=== PATIENT | female | born 1985 | race Caucasian/White ===

== ENCOUNTER 2022-05-17 08:24 | Outpatient (CLI) | payer OTHER, SELFPAY ==
--- OUTSIDE RECORDS SUMMARY | 2022-05-17 08:27 | XMS_ITS | Continuity of Care Document ---
:1985 Author Organization [facility] Address [address] [facility] [place] [address] Care Team Providers Name Role Phone [facility] Unavailable Unavailable Procedures Procedure Date INTERLAMINAR CRV OR THRC INJ FORAMEN EPIDURAL L/S Advance Directives Directive Yes / No Effective Date File Name No Information Encounters Encounter Practice Location Reason(s) Diagnoses Date Provider Provide rs Description For Visit Copied on Encounter [facility] Information [facility] Provider: Surgery Surgery Surgery [facility]. De La Cruz, [id number] [facility] [place], [place], [place], [place], [id number], [place], [address]. [id number], tel:[phone] tel:[phone] [facility] No [facility] -[facility] Provider: Surgery Surgery Surgery [facility]. De La Cruz, [address] [id number] [facility] Jan [place], [place], [place], [place], [id number], [place], [address]. [place] [id number], tel:[phone] tel:[phone] Family History Family Member Type Diagnosis Age At Onset No Information Payers Payer name Insurance type Covered alliance party ID Authorization(s ) [facility] [id number] Social History Type Description Quantity Date Captured Comments Sex Female Smoking Status No Information Chief Complaint And Reason For Visit No Information Reason For Referral Reason For Referral No Information Plan Of Treatment Date Type Action Status No Information History Of Present Illness Encounter Date Complaint History Of Present I llness No Information Functional Status Date Functional Assessment No Information Instructions Date Instruction Additional Informati on No Information Assessments Type Assessment Date No Information Patient Care Teams Name Effective Dates (start - stop) Status M embers No Information
--- OUTSIDE RECORDS SUMMARY | 2022-05-17 08:27 | XMS_ITS | Clinical Summary ---
:1985 Author Organization [facility] [place] [address] Care Team Providers Name Role Phone None Primary Care Provider Unavailable Allergies No known active allergies Medications Medication Sig Dispensed Refills Start Date End Date Status ORDER - MEDICATION ORDER COMPOSER 0 Active Active Problems Not on file Social History Tobacco Use Types Packs/Day Years Used Date Never Assessed Sex Assigned at Date Recorded Not on file Obstetrics History Last Filed Vital Signs Vital Sign Reading Time Taken Comments Blood Pressure 132/73 11/10/2010 12:00 AM CDT Pulse 96 11/10/2010 12:00 AM CDT Temperature 36.7 ??C (98 ??F) 11/09/2010 7:56 PM CDT Respiratory Rate 16 11/10/2010 12:00 AM CDT Oxygen Saturation 98% 11/10/2010 12:00 AM CDT Inhaled Oxygen Concentration - - Weight 65.8 kg (145 lb) 11/09/2010 7:56 PM CDT Height 157.5 cm (5' 2) 11/09/2010 7:56 PM CDT Body Mass Index 26.52 11/09/2010 7:56 PM CDT Plan of Treatment Health Maintenance Due Date Last Done Comments Tdap 12/25/1998 Depression screening for age 12+ 1999 BMI (ht and wt on same day) for age 0512/25/2005 18+ Hepatitis C screening for age 18-79 12/25/2005 Tetanus booster 2007 Influenza for age 9-49 04/27/2022 Pap test for age 21-65 06/30/2023 06/30/2020, 06/30/2020 COVID-19 vaccine series Completed 07/06/2021, 12/07/2020, 11/09/2020 Results Not on filefrom Last 3 Months Insurance Payer Benefit Plan / Subscriber ID Effective Dates Phone Addre ss Type Group [employer] [id number] 2020-Present [address] [place] [address] 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
--- OUTSIDE RECORDS SUMMARY | 2022-05-17 08:27 | XMS_ITS | Continuity of Care Document ---
:1985 Author Organization [facility] Address [address] [place] [address] Phone Care Team Providers Name Role Phone Will Enrique CHIN Unavailable Unavailable Allergies, Adverse Reactions, Alerts Substance Reaction Status Criticality nickel Active No Information metoprolol Active No Information levothyroxine Active No Information tramadol HivesHivesHives Active No Information oxycodone HivesHivesHives Active No Information hydrocodone Active No Information Medications Medication Instructions Dosage Effective Dates Status Comment s (start - stop) diclofenac sodium 75 take 1 tablet by 75 MG - Active mg tablet,delayed oral route 2 times release every day Cymbalta 60 mg take 1 capsule by 60 MG - Active capsule,delayed oral route every day release atenolol 100 mg take 1 tablet by 100 MG - Active tablet oral route every day colestipol 1 gram take 2 tablet by 2 G - Active tablet oral route every day swallowing whole with any liquid. Do not crush, chew and/or divide. Cosentyx 300 mg/2 inject 2 milliliter 300 MG - Active Syringes (150 mg/mL) by subcutaneous subcutaneous route every 4 weeks in the abdomen, thigh, or outer area of upper arm (rotate sites) Zofran 4 mg tablet take 1 tablet by 4 MG - Active oral route every day as needed Maxalt 10 mg tablet take 1 tablet by 10 MG - Active oral route once, may repeat at 2 hour intervals; do not exceed 30 mg in 24 hours as needed tizanidine 2 mg take 1-2 tablets by - No Longe r tablet oral route every 6 - Active 8 hours as needed not to exceed 3 doses in 24 hours Flector 1.3 % apply 1 patch by 180 MG - No Longer transdermal 12 hour transdermal route 2 Active patch times every day to most painful area Procedures Procedure Date Facet Jt Inj Or MBB Cervical/Thoracic RIGHT Facet Jt Inj Or MBB Cerv/Thor 2nd Level RIGHT 021 Facet Jt Inj Or MBB Cerv/Thor 3rd Level RIGHT 021 OFFICE/OUTPATIENT VISIT, EST INTERLAMINAR CRV OR THRC INJ FORAMEN EPIDURAL L/S BILATERAL INJ TRIGGER POINT, / MUSCL OFFICE/OUTPATIENT VISIT, EST Kenalog Triamcinolone acetonide inj PT-FOCUSED HLTH RISK ASSMT INJECT TRIGGER POINTS, =/> 3 OFFICE/OUTPATIENT VISIT, NEW Advance Directives Directive Yes / No Effective Date File Name No Information Encounters Encounter Practice Location Reason(s) Diagnoses Date Provider Provide rs Description For Visit Copied on Encounter [facility] No Information [facility] Enrique. Pain Isaura 2 [address] [facility] Jackie, Jan, [address] [facility] Yang Montoya is, [place], [place], [id number] [place], , [place]. 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 Provider: Pain Center cervical region 1 [address] [facility], [place] Montoya J, [address] [facility] Min[place] [address] [facility] [address] [facility] Jan isCISCO, Isaura Montoya, [id number] [facility] , [place]. s, [place], [id number] tel: [phone] , [place] [id number] . tel: tel:[phone] OFFICE/OUTPA [facility] Back Pain Strain of fascia of Kush izquierdo Referring TIENT VISIT, [facility] (chief lower back, initial Richard iel. Provider: OZZY [place] complaint) encounterRheumatoid 1 [address] [facility], arthritisOther [facility] [address] Will J, [address] intervertebral disc [address] Jan, degeneration, 100, Jan, [place], thoracic [place], regionChronic pain e, [place], [place], [place] , [id number] syndromeMyalgia, [phone] , [place] other siteOther , [place]. . tel: cervical disc tel: tel: [phone] displacement, high [phone] cervical regionOther intervertebral disc displacement, lumbar regionSpondylosis w/o myelopathy of cervical region [facility] Other cervical disc Oct- De La Cruz Referring [facility] displacement, high Elvi. Provi azar: Pain Center cervical region 1 [address] [facility], Jan, Will J, [address] [place] [address] Jan, is, [place], Jan, [place], [id number] [place], , [place]. s, [place], [id number] tel: [phone] , [place] [id number] . tel: tel: [phone] [facility] Other Oct-0 De La Cruz Referring [facility] intervertebral disc Elvi. Prov ider: Pain Center displacement, 1 [address] [facility], lumbar region Jan, Will J, [address] [place] [address] Jan, is, [place], [place], [id number] [place], , [place]. s, [place], [id number] tel: [phone] , [place] [id number] . tel: tel: [phone] [facility] No Information [facility] Gianni. Pain [place] [address] Clinic, [facility] [address] Jan, 100, [place], [place], e, [place], [id number] , [place] , [place]. tel: tel: [phone] OFFICE/OUTPA [facility] Back Pain Rheumatoid Oct-0 Vyas Re ferring TIENT VISIT, [facility] (chief arthritisOther Gianni. Provider: EST Pain [place] complaint) intervertebral disc 1 [address] [facility], degeneration, [address] Will J, [address] thoracic [address] Jan, regionChronic pain 100, Jan, Isaura, syndromeMyalgia, [place], other siteOther e, [place], [place], [place], [id number] cervical disc [phone] , [place] displacement, high , [place]. . tel: cervical tel: tel: [phone] regionOther [id number] [phone] intervertebral disc displacement, lumbar regionStrain of fascia of lower back, initial encounter OFFICE/OUTPA [facility] Back Pain Other Sep- Vyas Refer ring TIENT VISIT, [facility] (chief intervertebral disc Richard iel. Provider: NEW Pain [place] complaint) degeneration, 1 [address] [facility], Widespread thoracic [address] Will J, [address] pain regionChronic pain 11 [address] Jan, (chief syndromeEncounter 100, Jan, [place], complaint) for screening for [place], other disorderOther e, [place], s, [place], [id number] intervertebral disc [phone] , [place] degeneration, , [place]. . tel: lumbar regionOther tel: t el: [phone] cervical disc [id number] degeneration, unspecified cervical regionMyalgia, other siteRheumatoid arthritis [facility] No Information Sep- Vyas [facility] Gianni. Pain [place] 1 [address] Clinic, [facility] [address] [place] Jan, 100, [place], [place], e, [place], [id number] , [place] , [place]. tel: tel: [phone] Family History Family Member Type Diagnosis Age At Onset No Information Payers Payer name Insurance type Covered democrat ID Authorization(s ) [facility] [id number] Social History Type Description Quantity Date Captured Comments Sex Female Smoking Status No Information Chief Complaint And Reason For Visit No Information Reason For Referral Reason For Referral No Information Plan Of Treatment Date Type Action Status Goal PHQ-9. Due on due Goal Medication Reconciliation. Due o n due Goal Tobacco Use. Due on due Goal Height. Due on due Goal Update Social History. Due on De due Goal Review Allergy List. Due on due Goal Weight. Due on due Goal PHQ-9. Due on due Goal Medication Reconciliation. Due o n due Goal Tobacco Use. Due on due Goal Height. Due on due Goal Update Social History. Due on Oc due Goal Review Allergy List. Due on due Goal Weight. Due on due Goal PHQ-9. Due on due Goal Medication Reconciliation. Due o n due Goal Tobacco Use. Due on due Goal Height. Due on due Goal Update Social History. Due on Oc due Goal Review Allergy List. Due on due Goal Weight. Due on due Goal PHQ-9. Due on due Goal Medication Reconciliation. Due o n due Goal Tobacco Use. Due on due Goal Height. Due on due Goal Update Social History. Due on Se due Goal Review Allergy List. Due on due Goal Weight. Due on due Goal PHQ-9. Due on due Goal Medication Reconciliation. Due o n due Goal Tobacco Use. Due on due Goal Height. Due on due Goal Update Social History. Due on Se due Goal Review Allergy List. Due on due Goal Weight. Due on due History Of Present Illness Encounter Date Complaint History Of Present I llness Back Pain (comments) Liana presents for follow-up. She is followed for chronic pain in her BL hips, low back, mid back ( R>L), upper back, neck (R>L), christine ints and muscles. Most bothersome pain is l ocated in her neck. S/p 06/03/21 LESI and VINICIUS with minimal benefit. Sta franchesca they had a numbing effect for a couple days, but the benefit wore off. Most of to day's visit was spent discussing RFA, andre ent is interested and would like the order placed to her insurance. Patient i s not accompanied and has no other concern s. Back Pain Severity level is 5. Duration: chronic. The problem is fluctuati ng. It occurs persistently. Locati on of pain is upper back, middle back, l ower back, neck and hands.The patient de scribes the pain as an ache and burning. Sy mptoms are aggravated by ascending stairs, bending, descending stairs, lying/rest, sitting, standing, housework and prolon ged positioning.The patient denies relie ving factors. Back Pain (comments) Liana presents for initial follow-up. 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 Most bothersome pain is l ocated in her mid-back. States TPIs performe d at last OV provided about 1 week of reli ef. Requests repeat TPIs today. Since OV, she trialed Lyrica. She states s he felt really shaky and discontinued the medication. Most of today's visit was sp ent discussing updated imaging and availabl e treatment options. Specifically discuss ed cervical and lumbar ESIs. Patient is int erested and requests that the orders be p laced today. Patient is not accompanied and has no other concerns. Back Pain Severity level is 5. Duration: chronic. The problem is stable. I t occurs persistently. Location of pain is upper back, middle back and lower back.The p atient describes the pain as an ache and burning. Symptoms are aggravated by ascend ing stairs, descending stairs, lying/rest, running, standing, twisting, walking, h ousework, movement and prolonged positionin g. Symptoms are relieved by rest. Widespread pain (comments) Liana is a 35 y/o female, here for initial consult, self-referr ed, in the setting of chronic widespread p ain. She details chronic pain in her BL hips, low back, mid back (R>L), upper ba ck, neck (R>L), joints and muscles. She sta franchesca her back pain is of primary concern at t his time. She states she was dx with RA i n . She is currently managed by Dr. Mayela Bateman at [facility], She reports that she had multiple instances of swollen, painful BL knees and managed this with aspirations and cortisone injections. She states she has B L hip pain, also previously managed f or a few years with cortisone injections . She is currently managed on Cosentyx which has helped with knee pain/swelling b ut hip/back/neck pain persists.She states she currently manages her back pain with c hiropractic adjustments, 2x/ekta h for the past 6 years. She reports benefit immediately after, but the relief is short- lived. 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 Triall ed: Cortisone injections without b enefit, Celebrex 200mg 2x/day + Tylenol w/o benefit, PT at [facility]: October-January 2021 w/o benefit, Cy mbalta 60mg, amitriptyline, ibupr ofen, naproxen, prednisone and metho trexate.She is interested in other pain management options at [facility] at this time . No other concerns today. Back Pain Onset: gradual witho ut injury. Severity level is 5. Duration : chronic. The problem is worsening. It occ urs persistently. The patient describes th e pain as an ache and burning. Symptoms ar e aggravated by ascending stairs, be nding, descending stairs, lifting, lyi ng/rest, running, sitting, standing, t wisting, walking and movement.The patient denies relieving factors. Widespread pain Pertinent negatives include diarrhea, fatigue, fever and i ncontinence (urinary). Functional Status Date Functional Assessment No Information Instructions Date Instruction Additional Informati on No Information Assessments Type Assessment Date No Information Patient Care Teams Name Effective Dates (start - stop) Status M embers No Information
--- OUTSIDE RECORDS SUMMARY | 2022-05-17 08:27 | XMS_ITS | Continuity of Care Document ---
:1985 Author Organization [facility] Address [address] [place] [phone] Phone Care Team Providers Name Role Phone [facility] Unavailable Unavailable Procedures Procedure Date Facet Jt Inj Cervical/Thoracic RIGHT Facet Jt Inj Cerv/Thor 2nd Level RIGHT Facet Jt Inj Cerv/Thor 3rd Level RIGHT Advance Directives Directive Yes / No Effective Date File Name No Information Encounters Encounter Practice Location Reason(s) Diagnoses Date Provider Provide rs Description For Visit Copied on Encounter [facility] No [facility] Surgery Surgery Information Surgery Provider: Kelsy, Center [address] [place] [place] [address] 110, 11 [facility] 110, [place], [place] [facility], [place], s, [place], [id number], [id number], [phone] [place]. . tel:[phone] tel:[phone] tel:[phone] Family History Family Member Type Diagnosis Age At Onset No Information Payers Payer name Insurance type Covered constitution party ID Authorization(s ) Count includes the [facility] [id number] Social History Type Description Quantity Date Captured [...]
--- OUTSIDE RECORDS SUMMARY | 2022-05-17 08:28 | XMS_ITS | Encounter Summary ---
:1985 Author Organization [facility] Address [address] [place] [address] Care Team Providers Name Role Phone Manjit Tovar MD Primary Care Provider Reason for Visit Reason Comments Skin Check Encounter Details Date Type Department Care Team Description 09/21/2021 Office Visit Ruth Cheney b enign melanocytic nevi of upper and lower extremities and trunk (Primary Dx); Dermatology MD Trevin Sun-damaged skin; [address] [address] [place] Seborrheic keratosis; [place] [address] [place], [place] Skin exam for malignant neop lasm; [phone] [id number] Personal history of malignant melanoma o f skin; [phone] (Wo rk) History of dysplastic nevus Social History Tobacco Use Types Packs/Day Years Used Date Smoking Tobacco: Former Cigarettes 0.5 4 Quit : 06/27/2013 Smokeless Tobacco: Never Comments: Smoking History Packs/day: Alcohol Use Standard Drinks/Week Comments No 0 (1 standard drink = 0.6 oz pure Alcoho lic Drinks/day: Amount:1-2 alcohol) drinks; Freq:=< Maximino hly; Alcohol Habits Answer Date Recorded How often do you have a drink Not asked containing alcohol? How many drinks containing alcohol Not asked do you have on a typical day when you are drinking? How often do you have six or more Not asked drinks on one occasion? Comment: Alcoholic Drinks/day: Amount:1-2 016 drinks; Freq:=< Monthly; Sex Assigned at Date Recorded Not on file documented as of this encounter Progress Notes Ruth Renee MD - 09/21/2021 10:45 AM CST This office note has been dictated. COUNSELOR Ruth Renee MD - 09/21/2021 12:00 AM CST NAME: MANJIT JUAREZ CSN: [id number] CLINIC NOTE DATE OF SERVICE: 09/21/2021 : 1985 SUBJECTIVE: 35-year-old woman comes in for recheck of her skin. She was last seen in November of 2020. Usually sees Dr[address] Knox, so missed a few appointments because of rescheduling. She has a history of melanoma on the left breast in 2008, 0.39 mm Breslow depth. Another melanoma in 2010, 0.19 mm in depthon the left anterior leg. She has had severely dysplastic nevus left forehead and several on the back in the past as well. Her most recent melanoma was located on her left flank and in situ, excised byDr. Hendrix in February of 2021. Patient has noted no changes in moles. She feels healthy. No lumps or bumps on the skin. She does have some papular growths in the right axilla that were biopsied by Dr. Knox that showed granulomatous changes. These are no longer itchy. She denies really any other concerns. MEDICATIONS: Reviewed in Epic. ALLERGIES: REVIEWED IN EPIC. OBJECTIVE: On exam very pleasant, fair complected woman, skin type 1-2. Evaluation of the skin, fingernails, toenails, external genitalia, gluteal cleft area reveals scar sites are noted including left flank. No evidence of pigment recurrence or nodularity. There are multiple nevi that are lightly colored to medium brown colored, very circular in appearance on the right hip, thigh and buttock area. No concerning features under dermoscopy. Several on the mid-upper back that are very lightly colored. Several angiomas including more dark purple angioma on the right lower leg confirmed with dermoscopy. No cervical, axillary, or inguinal lymphadenopathy is palpable. ASSESSMENT AND PLAN: 1.History of malignant melanoma x3 without evidence of recurrent disease. Most recent was left flank. No evidence of recurrence there. It is well healed. We discussed continued close monitoring and followup in 3-4 months. 2.History of multiple dysplastic nevi. No evidence recurrence of previously excised sites. 3.Multiple benign nevi. Warning changes reviewed. 4.Sun-damaged skin. Sunscreen, sun avoidance, as she has been doing. 5.Papular eruption, right axilla has been relatively asymptomatic recently. Offered no treatment today. Followup here will be 3-4 months. 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
--- OUTSIDE RECORDS SUMMARY | 2022-05-17 08:28 | XMS_ITS | Encounter Summary ---
:1985 Author Organization [employer] Address [address] [place] [address] Care Team Providers Name Role Phone Liana Tovar MD Primary Care Provider Reason for Visit Procedure/Equipment (Routine) - Incomplete Specialty Diagnoses / Procedures Referred By Contact Refer red To Contact Diagnoses Acute pain of right knee Beau Hwang MD Procedures XR Knee Lt 1-2 Views Comparison [address] [facility] [place], [place] [address] Referral ID Status Reason Start Date Expiration Date Visits V isits Requested Authorized [id number] Incomplete 04/14/2021 07/14/2022 1 1 Encounter Details Date Type Department Care Team Description 04/14/2021 [place] [place] Beau Oliveira, Acute candido n of right Procedure [place] [address] knee Radiology [address] [facility] [address] [place], [place] [address] [address] [place], [place] [phone] [address] (Work) [phone] Social History Tobacco Use Types Packs/Day Years [...] on file documented as of this encounter Plan of Treatment Upcoming Encounters Date Type Specialty Care Team Description 05/18/2022 Appointment Rheumatology Erasmo Horn MD [address] [facility] et [facility] [place] N [address] (Wo rk) documented as of this encounter Procedures Procedure Name Priority Date/Time Associated Comments Diagnosis XR KNEE LT 1-2 VIEWS STAT 04/14/2021 1:16 PM Acute pain of right Results for this COMPARISON CDT knee procedure are i n the results section. documented in this encounter Results XR Knee Lt 1-2 Views Comparison (04/14/2021 1:16 PM CDT) Anatomical Region Laterality Modality Lower Extremity, Knee Digital Radiograph y Specimen (Source) Anatomical Collection Method Collection Time Re ceived Time Location / / Volume Laterality 04/14/2021 1:07 PM CDT Impressions 04/14/2021 1:33 PM CDT COMPARISON: ??Left 06/05/2005 FINDINGS: ??Right knee 3 view: Unremarka ble Left knee 2 view: Unremarkable examinati on Procedure Note Balaji Cervantes MD - 04/14/2021For matting of this note might be different from the original. IMPRESSION COMPARISON: Left 06/05/2005 FINDINGS: Right knee 3 view: Unremarkabl e Left knee 2 view: Unremarkable examinati on Beau Hwang MD RAD GD XR Knee Rt 3 Views (04/14/2021 1:15 PM CDT) Anatomical Region Laterality Modality Lower Extremity, Knee Digital Radiograph y Specimen (Source) Anatomical Collection Method Collection Time Re ceived Time Location / / Volume Laterality 04/14/2021 1:07 PM CDT Impressions 04/14/2021 1:33 PM CDT COMPARISON: ??Left 06/05/2005 FINDINGS: ??Right knee 3 view: Unremarka ble Left knee 2 view: Unremarkable examinati on Procedure Note Balaji Cervantes MD - 04/14/2021For matting of this note might be different from the original. IMPRESSION COMPARISON: Left 06/05/2005 FINDINGS: Right knee 3 view: Unremarkabl e Left knee 2 view: Unremarkable examinati on Beau Hwang MD RAD GD documented in this encounter Visit Diagnoses Diagnosis Acute pain of right knee Acute pain of right knee documented in this encounter Care Teams Coordinator Integrated Marketing Relationship Specialty Start Date End Date Liana Tovar MD PCP - General 03/08/[address] [place] [address] documented as of this encounter
--- OUTSIDE RECORDS SUMMARY | 2022-05-17 08:28 | XMS_ITS | Encounter Summary ---
:1985 Author Organization [employer] Address [address] [place] [address] Care Team Providers Name Role Phone Liana Tovar MD Primary Care Provider Reason for Referral Procedure/Equipment (Routine) - Incomplete Specialty Diagnoses / Procedures Referred By Contact Refer red To Contact Diagnoses Pain in both hands Inflammatory spondylopathy, unspecified spinal region (HRC) Erasmo Horn MD Procedures XR Hands 1 View Bilat Arthritis [address] [place], [place] [address] Referral ID Status Reason Start Date Expiration Date Visits V isits Requested Authorized [id number] Incomplete 11/15/2021 02/14/2023 1 1 Reason for Visit Reason Comments Follow-up Right hand pain Encounter Details Date Type Department Care Team Description 11/15/2021 Office Visit [facility] 3800 Erasmo Horn MD Inflammatory spondylopathy, unspecified spinal region (HRC) (Primary Dx); Rheumatology [address] in both hands; [address] Chronic pain syndrome; Blvd. [place], [place] High risk medication use; [place] [address] Lumbar degenerative disc disease [id number] Social History Tobacco Use Types Packs/Day Years [...] on file documented as of this encounter Last Filed Vital Signs Vital Sign Reading Time Taken Comments Blood Pressure 119/83 11/15/2021 8:28 AM CDT Pulse 71 11/15/2021 8:28 AM CDT Temperature - - Respiratory Rate - - Oxygen Saturation - - Inhaled Oxygen Concentration - - Weight 98.3 kg (216 lb 12.8 oz) 11/15/2021 8:28 AM CDT Height - - Body Mass Index 39.65 04/14/2021 1:01 PM CDT documented in this encounter Patient Instructions Patient InstructionsErasmo Horn MD - 11/15/2021 8:30 AM CDT Longstanding history of inflammatory arthritis with a suspicion spondyloarthritis versus seronegative rheumatoid arthritis. Recently Cosentyx dose was increased to 300 mg monthly injection. Patient has since had improvement in her joint pain predominantly in the lower back and knees. Has been complaining of right wrist and right hand pain. No signs of active synovitis on physical exam. Recommend doing an x-ray of both hands. At this time recommend a symptomatic approach with NSAIDs like diclofenac twice daily. Voltaren gel 3-4 times daily for topical use. Warm therapy like paraffin baths for the hands, arthritis gloves. Continue Cosentyx 300 mg subQ monthly injection. Return to clinic in 5-6 months follow-up or sooner if needed. documented in this encounter Progress Notes Erasmo Horn MD - 11/15/2021 8:30 AM CDT Rheumatology Follow up Note Chief Complaint Patient presents with ??? Follow-up Right hand pain HPI: Liana Juarez is a 35 y.o. 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 Previously patient was seen at [facility] by Dr. Miller and later on at [facility] financial services education consultant by Dr. Bateman. Previously she failed Plaquenil and sulfasalazine. Was on methotrexate for couple of years and it was discontinued secondary to a concern for an active melanoma. Was started on Cosentyx 150 mg subQ monthly injection by Dr. Bateman. Patient felt some improvement inher joint symptoms but lasting only for a week or 2 after the injection. Has been complaining of chronic low back pain. Previously seen at pain clinic and had injections in her lower back. Previous imaging studies of the cervical and lumbar spine showed degenerative changes. No signs of inflammatory spondyloarthritis documented. In her 1st encounter with me in June the decision was made to do a trial of increasing Cosentyx to 300 mg subQ monthly injection. Patient is coming today for follow-up. She has seen improvement in her joint symptoms predominantly in the lower back and in her knees. Her main complaint today is painin the right wrist and in the right hand at the level of the 2nd, 3rd and 4th MCP joints predominantly on the 3rd MCP joint. Symptoms are predominantly in the morning and during the day. No significantchange with physical activities. Denies any red hot swollen joints. Denies any skin rash. Currently patient has been using diclofenac 75 mg twice daily. Patient Active Problem List Diagnosis ??? Chronic polyarticular juvenile rheumatoid arthritis (HRC) ??? Obesity due to excess calories (HRC) ??? Elevated blood pressure reading without diagnosis of hypertension ??? Rheumatoid arthritis involving multiple sites with positive rheumatoid factor (HRC) ??? Palpitations ??? Migraine with aura and without status migrainosus, not intractable ??? Inflammatory spondylopathy (HRC) ??? High risk medication use ??? Chronic pain syndrome ??? Lumbar degenerative disc disease (HRC) Past Medical History: Diagnosis Date ??? Abnormal uterine bleeding (AUB) 11/04/2015 ??? Arthritis (HRC) ??? Arthritis Juvenile Rheumatoid Chronic 07/04/2005 LW Onset: ??? Bursitis Trochanteric Right 05/27/2009 ??? Chest discomfort 11/04/2015 ??? Dysplastic Nevus 08/22/2010 LW Modifier: face ??? Elevated blood pressure reading without diagnosis of hypertension 11/04/2015 ??? Fx Bone NOS Closed 05/26/2008 LW Modifier: right wrist LW Onset: 1999 ??? HARRIS (headache) ??? Melanoma (HRC) hx of skin cancer ??? Menorrhagia 05/26/2008 LW Onset: 2006 ??? Obesity (HRC) ??? Obesity due to excess calories (HRC) 11/04/2015 ??? Rheumatoid arthritis(714.0) (HRC) Past Surgical History: Procedure Laterality Date ??? SKIN CANCER EXCISION Outpatient Encounter Medications as of 11/15/2021 Medication Sig Dispense Refill ??? atenolol (TENORMIN) 50 MG tablet Take 50 mg by mouth daily. ??? cholecalciferol (VITAMIND3) 2000 UNITS tablet Take 1 tablet by mouth daily (every 24 hours). 90 3 ??? [DISCONTINUED] clindamycin (CLEOCIN) 2 % vaginal cream Place 1 Applicatorful vaginally nightly. 40 ??? colestipol (COLESTID) 1 g tablet TAKE 2 TABLETS BY MOUTH TWO TIMES A DAY. SWALLOW WHOLE WITH LIQUID. 11 ??? COSENTYX SENSOREADY, 300 MG, 150 MG/ML SOAJ Apply 300 mg to skin every 4 weeks. Indications: Rheumatic Disease causing Vertebrae Inflammation, M45.9 2 Each 11 ??? diclofenac (VOLTAREN) 75 MG enteric coated tablet Take 75 mg by mouth two times daily as needed. ??? DULoxetine (CYMBALTA) 60 MG capsule Take 60 mg by mouth daily. ??? EPINEPHrine (EPIPEN) 0.3 MG/0.3ML injection INJECT ONE PEN INTO MUSCLE ONE TIME NEEDED FOR ALLERGIC REACTION 2 Each 11 ??? ondansetron (ZOFRAN-ODT) 4 MG disintegrating tablet Take 1 tablet by mouth every 8 hours as needed for Nausea or Vomiting. Dissolve tablet on tongue 30 tablet 0 ??? rizatriptan (MAXALT) 10 MG tablet ??? tiZANidine (ZANAFLEX) 2 MG tablet TAKE 1 TO 2 TABLETS BY MOUTH EVERY 6 TO 8 HOURS NEEDED. NOTTO EXCEED 3 DOSES IN 24 HOURS No facility-administered encounter medications on file as of 11/15/2021. Allergies Allergen Reactions ??? Hydrocodone Hives ??? Lac Bovis Hives ??? Nuts Hives almonds ??? Oxycodone Hives ??? Adhesive Rash PN: Paper tape & Tegaderm is okay ??? Bacitracin Rash ??? Metronidazole Other, see comments PN: Headache ??? Other Hives PN: Dairy ??? Wound Dressing Adhesive Rash PN: Paper tape & Tegaderm is okay ??? Grady Oil Hives Social History Substance and Sexual Activity Alcohol Use No Comment: Alcoholic Drinks/day: Amount:1-2 drinks; Freq:=< Monthly; Social History Tobacco Use Smoking Status Former Smoker ??? Packs/day: 0.50 ??? Years: 4.00 ??? Pack years: 2.00 ??? Types: Cigarettes ??? Quit date: 06/27/2013 ??? Years since quittin.3 Smokeless Tobacco Never Used Tobacco Comment Smoking History Packs/day: EXAM General Appearance: Pleasant, alert, appropriate appearance for age. No acute distress HEENT Exam: Normocephalic, atraumatic, clear sclera. Neck Exam: Supple, no masses or nodes. Chest/Respiratory Exam: Normal chest wall and respirations. Clear to auscultation. Cardiovascular Exam: Regular rate and rhythm, no murmur. Musculoskeletal Exam: Normal muscle bulk. Mild tenderness in the 3rd MCP joints bilaterally and dorsum of the right wrist. No signs of active synovitis. No joint effusion. Full range of motion in all 4extremities. Normal muscle strength in all 4 extremities. Skin: no rash Neurologic Exam: Nonfocal, normal gross motor movement, tone, and coordination. No tremor. Lab: Lab Results Component Value Date White Blood Cell Count 6.1 08/29/2016 Red Blood Cell Count 4.56 08/29/2016 Hemoglobin 13.4 08/29/2016 Hematocrit 40.9 08/29/2016 Hematocrit (NPT) 40 06/24/2008 Mean Corpuscular Volume 89.7 08/29/2016 RDW 13.1 08/29/2016 Platelet Count 231 08/29/2016 Lab Results Component Value Date Aspartate Aminotransferase 16 08/29/2016 Lab Results Component Value Date Creatinine Serum 0.70 08/29/2016 Assessment and Plan: Longstanding history of seronegative inflammatory arthritis. A few years ago a diagnosis of juvenilerheumatoid arthritis was given. Later on a suspicion for inflammatory spondyloarthritis was raised with axial and peripheral involvement. Previously failed therapy with Plaquenil, sulfasalazine. At 1 time was on methotrexate but later on was discontinued secondary to concern for active melanoma. Was recently started on Cosentyx 150 mg monthly injection by Dr. Bateman with some relief in her symptoms. Patient felt that the injection was not lasting the full 4 weeks. [place] better in the 1st 1-2 weeks then symptoms were getting worsened in the last 2 weeks. On her last appointment in June the decision was made to increase the Cosentyx to 300 mg subQ monthly injection. Patient has seen some improvement in her joint symptoms predominantly in the lower back and in her knees. Lately has been complaining of right wrist and right hand pain. No signs of active synovitis on physical exam. Recommend doing an x-ray of both hands. At this time recommend a symptomatic approach with NSAIDs like diclofenac 75 mg twice daily. Aspercreme with lidocaine cream or Voltaren gel 3-4 times daily for topical use. Warm therapy like paraffin baths for the hands, arthritis gloves. Continue Cosentyx 300 mg subQ monthly injection. Return to clinic in 5-6 months follow-up or sooner if needed. Erasmo Horn. Rheumatology [address]isa [address] 11/15/2021 This note consists of symbols derived from keyboarding, and voice recognition software. As a result,wrong word or '[id number]' substitutions may have occurred due to the inherent limitations of voice recognition software. There may be errors in the script that have gone undetected. Please consider this when interpreting information found in this chart. documented in this encounter Plan of Treatment Upcoming Encounters Date Type Specialty Care Team Description 05/18/2022 Appointment Rheumatology Erasmo Horn MD [address] [facility] [place] [address] (Wo rk) documented as of this encounter Results XR Hands 1 View Bilat Arthritis (11/15/2021 9:03 AM CDT) Anatomical Region Laterality Modality Upper Extremity, Hand Digital Radiograph y Specimen (Source) Anatomical Collection Method Collection Time Re ceived Time Location / / Volume Laterality 11/15/2021 8:58 AM CDT Impressions 11/15/2021 10:43 AM CDT COMPARISON: ??None. FINDINGS: ??No significant bone or joint abnormality is noted. Procedure Note Amos Nuno MD - 11/15/2021Formatti ng of this note might be different from the original. IMPRESSION COMPARISON: None. FINDINGS: No significant bone or joint a bnormality is noted. Erasmo Horn MD RAD GD documented in this encounter Visit Diagnoses Diagnosis Inflammatory spondylopathy, unspecified spinal region (HRC) - Primary Pain in both hands Chronic pain syndrome High risk medication use Encounter for long-term (current) use of other medications Lumbar degenerative disc disease (HRC) Degeneration of lumbar or lumbosacral in tervertebral disc Pain in both hands Inflammatory spondylopathy, unspecified spinal region (HRC) documented in this encounter Care Teams Inspector Aide Relationship Specialty Start Date End Date Liana Tovar MD PCP - General 03/08/[address] [place] [address] documented as of this encounter
--- OUTSIDE RECORDS SUMMARY | 2022-05-17 08:28 | XMS_ITS | Encounter Summary ---
:1985 Author Organization [employer] Address [address] [place] [address] Care Team Providers Name Role Phone Liana Tovar MD Primary Care Provider Reason for Referral Therapies (Routine) - New Request Specialty Diagnoses / Procedures Referred By Contact Refer red To Contact Diagnoses Chronic pain syndrome Erasmo Horn MD [address] [place], [place] [address] Referral ID Status Reason Start Date Expiration Date Visits V isits Requested Authorized [id number] New Request 07/20/2021 07/20/2022 1 1 Scheduling Instructions This order is your clinician's recommend ation for a service and is not an insurance referral which authorizes payment. The r ecommended service and/or location may not be covered by your insurance plan. Please c all the number on your insurance card to find out your specific benefits and coverage for the recommended services and/or location. If you need help scheduling the recommen ded services, please ask your clinician's staff to assist you. ER SINGLE Encounter Details Date Type Department Care Team Description 07/20/2021 Notes/Orders [facility] [address]Erasmo Foley MD Chronic pain syndrome Rheumatology [address] (Primary Dx) [address] [place] [address] [phone] Social History Tobacco Use Types Packs/Day Years [...] Description 05/18/2022 Appointment Rheumatology [facility]asmo Horn MD [address] [facility] [place] [id number] (Wo rk) Scheduled Referrals Name Type Priority Associated Diagnoses Order S chedule Physical Therapy Referral Routine Chronic pain syndrome Or dered: 07/20/2021 documented as of this encounter Visit Diagnoses Diagnosis Chronic pain syndrome - Primary documented in this encounter Care Teams Shoe Laster Relationship Specialty Start Date End Date Liana Tovar MD PCP - General 03/08/15 [address] [address] documented as of this encounter
--- OUTSIDE RECORDS SUMMARY | 2022-05-17 08:28 | XMS_ITS | Encounter Summary ---
:1985 Author Organization [email or web address] Address [address] [place] [address] Care Team Providers Name Role Phone Liana Tovar MD Primary Care Provider Reason for Visit Reason Comments Surgery Consult/Transfer Care (Routine) - New Request Specialty Diagnoses / Procedures Referred By Contact Refer red To Contact Diagnoses Melanoma in situ, unspecified site (HRC) [place] [address] [place] [address] Referral ID Status Reason Start Date Expiration Date Visits V isits Requested Authorized [id number] New Request 02/21/2021 05/23/2022 1 1 Encounter Details Date Type Department Care Team Description 03/02/2021 Procedure Visit [facility] 3800 Mary Hendrix MD Surgery Dermatology [address] [address] [phone] (Wo rk) Social History Tobacco Use Types Packs/Day Years [...] documented as of this encounter Progress Notes Mary Hendrix MD - 03/02/2021 1:00 PM CDT PROCEDURE NOTE Surgeon: Mary Hendrix MD Director On Air: Kami Paz RN Anesthesia: Lidocaine with 1% epinephrine Clinical diagnosis: Melanoma in situ Anatomic site: Left Flank Preoperative lesion size: linear 1 cm scar Operation: Excision Surgical Defect: 2 cm (5 mm margins) Final closure length: 4 cm Preparation: Chlorhexadine Preoperative medications: None INDICATIONS: Liana Juarez is a 35 y.o. female who presents for excision. The patient understands all risks, benefits, indications, potential complications, and alternatives, and freely consents for the procedure. The patient also understands the option of performing no surgery, the risk for scarring, and the technique of the procedure. TECHNIQUE: After informed consent was obtained, and after the skin was prepped sterilely and draped,1% lidocaine with epinephrine for anesthetic was injected around and underneath the site. ellipticalexcision in total was performed. The excision was carried into the fascia. Wound edges were then undermined approximately 0.5 cm in all directions. Hemostasis achieved with bipolar electrocoagulation. Subcutaneous tissues were then brought together with 6 vicryl sutures. Epidermal edges were approximated with 7 4.0 monocryl sutures. The surgical site was lightly scrubbed with hydrogen peroxide. A dressing was applied and wound care instructions were provided. Liana tolerated the procedure well and without complications. The patient will be alert for any signs of cutaneous infection and will follow up as instructed. The patient was discharged from Dermatology clinic in good condition. Mary Hendrix MD - 03/02/2021 1:00 PM CDT Melanoma is out, please call documented in this encounter Plan of Treatment Upcoming Encounters Date Type Specialty Care Team Description 05/18/2022 Appointment Rheumatology Erasmo Horn MD [address] [facility] et [facility] [place] [address] (Wo rk) documented as of this encounter Procedures Procedure Name Priority Date/Time Associated Comments Diagnosis SURGICAL PATHOLOGY, Routine 03/02/2021 1:04 PM Neoplasm of ski n Results for this DERMATOLOGY CDT procedure are i n the results section. documented in this encounter Results Surgical Path, Dermatology (03/02/2021 1:04 PM CDT) Component Value Ref Test Analysis Performed At [facility] gist Range Method Time Signature Case Report Surgical Pathology Report ? Case: [id number] ? 03/07/2021 [facility] 3800 Authorizing Provider: ??Mary Vasquez MD ? Collected: ? 03/02/2021 1304 ? 3:31 PM DERM ATOLOGY Ordering Location: ? [facility] ? Received: ?03/03/2021 0934 ? CDT ? Dermatology ? Pathologist: ? Nash Omalley MD ? Specimen: ?Skin, Left Fl ank ? FINAL A. Skin and subcutaneous tissue, Left Flank, excision: 03/07/2021 [facility] 3800 Electronically DIAGNOSIS - Organizing biopsy site with no residual melanoma in situ . 3:31 PM DERMATOLOGY signed by CDT Sherine Omalley COMMENT: I also reviewed the previous biopsy ([id number]). Taken together, the two specimens appear to represent adequate surgical therapy of this melanoma in situ, assuming clinical margins commensurate with accepted melanoma care guidelines. MD Vikram on 03/07/2021 at 3:31 PM Clinical Differential 03/07/2021 [facility]00 Information Diagnosis: MIS; 3:31 PM DERMATOLOGY [id number]; exc CDT Microscopic Microscopic 03/07/2021 [facility] 3800 Description examination is 3:31 PM DERMATOLOGY performed. CDT Gross A: 03/07/2021 [facility] 3800 Description Received in formalin, labele d with the patient's name and Skin, Left Flank is a 27 x 15 x 10 mm elliptical excision of skin and subcutis. The resection margin is entirely marked with black ink. The sp 3:31 PM DERMATOLOGY ecimen is serially sectioned into 8 pieces and submitted entirely in 6 cassettes, with tips submitted in cassette 1. CC CDT Embedded 03/07/2021 [facility] 3800 Images 3:31 PM DERMATOLOGY CDT Specimen Anatomical Collection Method Collection Time Receive d Time (Source) Location / / Volume Laterality Skin (Skin) 03/02/2021 1:04 PM 9:34 CDT AM CDT Comment: Differential Diagnosis: MIS; [id number]; exc Check Margins: No Mary Hendrix MD LAB PATHOLOGY Performing Organization Address City/State/ZIP Code Phon e Number DIRECTOR ASSET 3800 DERMATOLOGY [address] [place], [place] [address] documented in this encounter Visit Diagnoses Diagnosis Melanoma in situ of back (HRC) - Primary Malignant melanoma of skin of trunk, exc ept scrotum Neoplasm of skin (HRC) Neoplasm of unspecified nature of bone, soft tissue, and skin documented in this encounter Care Teams Practice Architect Relationship Specialty Start Date End Date Liana Tovar MD PCP - General 03/08/[address] [place] [address] documented as of this encounter
--- OUTSIDE RECORDS SUMMARY | 2022-05-17 08:28 | XMS_ITS | Encounter Summary ---
:1985 Author Organization [employer] Address [address] [place] [address] Care Team Providers Name Role Phone Liana Tovar MD Primary Care Provider Reason for Visit Procedure/Equipment (Routine) - Incomplete Specialty Diagnoses / Procedures Referred By Contact Refer red To Contact Diagnoses Acute pain of right knee Beau Hwang MD Procedures MR Knee Rt WO IV Cont [address] [place], [place] [address] Referral ID Status Reason Start Date Expiration Date Visits V isits Requested Authorized [id number] Incomplete 04/14/2021 07/14/2022 1 1 Encounter Details Date Type Department Care Team Description 04/14/2021 Ancillary [place] Beau Hwang, Acute pain of right Procedure [place] [address] [place] [address] [facility] [place] [address] [phone] Social History Tobacco Use Types Packs/Day Years [...] Description 05/18/2022 Appointment Rheumatology Erasmo Horn MD [address] [place] [facility] [facility] [address] [place] N [id number] (Wo rk) documented as of this encounter Procedures Procedure Name Priority Date/Time Associated Diagnosis Comme nts MR KNEE RT WO IV STAT 04/14/2021 6:28 PM Acute pain of righ t Results for this CONT CDT knee procedure are i n the results section. documented in this encounter Results MR Knee Rt WO IV Cont (04/14/2021 6:28 PM CDT) Anatomical Region Laterality Modality Lower Extremity, Knee, Skeletal, Thigh, Leg Right Magnetic Resonance Specimen (Source) Anatomical Collection Method Collection Time Re ceived Time Location / / Volume Laterality 04/14/2021 5:56 PM CDT Impressions 04/14/2021 6:42 PM CDT TECHNIQUE: ??Routine MRI of the right knee was performed without contrast. COMPARISON: ??04/14/2021 radiograph FINDINGS: MEDIAL COMPARTMENT: ??There are no focal cartilage defects. The medial meniscus is normal without evidence of tear. LATERAL COMPARTMENT: ??There are no foca l cartilage defects. The lateral meniscus is normal without evidence of tear. PATELLOFEMORAL JOINT: ??Mild chondral th inning of the lateral patellar facet. Cartilage of the medial patellar facet and femoral trochlea are intact. No full- thickness chondral defect. There is no signi ficant joint effusion or popliteal cyst. No osteocartilaginous bodies are identified. LIGAMENTS AND TENDONS: ??The anterior an d posterior cruciate ligaments, medial collateral ligament, iliotibial band, fibular collateral ligament and biceps femoris tendons are intact. The popliteus musc le and tendon are normal. There is no ev idence of injury to the posterolateral corner supporting structures. EXTENSOR MECHANISM: The quadriceps and p atellar tendons are normal. The medial retinaculum, medial patellofemoral ligament, and lateral retinaculum are normal. MARROW AND SOFT TISSUES: ??There is no a bnormal marrow signal or evidence of soft tissue mass. IMPRESSION: ?? 1. No MR evidence for acute meniscal or ligament tear. 2. No MR findings to suggest sequela of transient lateral patellar dislocation. 3. Mild chondromalacia patella. Procedure Note Amos Nuno MD - 04/14/2021Formatti ng of this note might be different from the original. IMPRESSION TECHNIQUE: Routine MRI of the right knee was performed without contrast. COMPARISON: 04/14/2021 radiograph FINDINGS: MEDIAL COMPARTMENT: There are no focal c artilage defects. The medial meniscus is normal without evidence of tear. LATERAL COMPARTMENT: There are no focal cartilage defects. The lateral meniscus is normal without evidence of tear. PATELLOFEMORAL JOINT: Mild chondral thin johnna of the lateral patellar facet. Cartilage of the medial patellar facet and femoral trochlea are intact. No full- thickness chondral defect. There is no significant joint effusion or popliteal cyst. No osteocart ilaginous bodies are identified. LIGAMENTS AND TENDONS: The anterior and posterior cruciate ligaments, medial collateral ligament, iliotibial band, fibular collateral ligament and biceps femoris tendons are intact. The popliteus muscle and tendon are normal. There is no evidence of injury t o the posterolateral corner supporting structures. EXTENSOR MECHANISM: The quadriceps and p atellar tendons are normal. The medial retinaculum, medial patellofemoral ligament, and lateral retinaculum are normal. MARROW AND SOFT TISSUES: There is no abn ormal marrow signal or evidence of soft tissue mass. IMPRESSION: 1. No MR evidence for acute meniscal or ligament tear. 2. No MR findings to suggest sequela of transient lateral patellar dislocation. 3. Mild chondromalacia patella. Beau Hwang MD RAD MRI documented in this encounter Visit Diagnoses Diagnosis Acute pain of right knee documented in this encounter Care Teams Automotive Engineer Relationship Specialty Start Date End Date Liana Tovar MD PCP - General 03/08/[address] [place] [address] documented as of this encounter
--- OUTSIDE RECORDS SUMMARY | 2022-05-17 08:28 | XMS_ITS | Encounter Summary ---
:1985 Author Organization [employer] Address [address] [place] [address] Care Team Providers Name Role Phone Liana Tovar MD Primary Care Provider Reason for Visit Procedure/Equipment (Routine) - Incomplete Specialty Diagnoses / Procedures Referred By Contact Refer red To Contact Diagnoses Pain in both hands Inflammatory spondylopathy, unspecified spinal region (HRC) Erasmo Horn MD Procedures XR Hands 1 View Bilat Arthritis [address] [place], [place] [address] Referral ID Status Reason Start Date Expiration Date Visits V isits Requested Authorized [id number] Incomplete 11/15/2021 02/14/2023 1 1 Encounter Details Date Type Department Care Team Description 11/15/2021 Ancillary [facility] [address] Erasmo Horn MD Pain in both hands; Procedure Radiology [address] [place] Inflammatory spondylopathy, unspecified spinal region (HRC) [address] [facility]. [facility], [address] [place] [address] [phone] Social History Tobacco Use Types Packs/Day Years [...] documented as of this encounter Progress Notes Erasmo Horn MD - 11/15/2021 9:00 AM CDT X-ray of the hands is unremarkable. No signs of joint erosions. documented in this encounter Plan of Treatment Upcoming Encounters Date Type Specialty Care Team Description 05/18/2022 Appointment Rheumatology Erasmo Horn MD [address] [facility] N [address] (Wo rk) documented as of this encounter Procedures Procedure Name Priority Date/Time Associated Diagnosis Comme nts XR HANDS 1 VIEW Routine 11/15/2021 9:03 AM Pain in both hands Results for this BILAT ARTHRITIS CDT Inflammatory procedure ar e in spondylopathy, the results unspecified spinal section. region (HRC) documented in this encounter Results XR Hands 1 View [...] documented in this encounter Visit Diagnoses Diagnosis Pain in both hands Inflammatory spondylopathy, unspecified spinal region (HRC) documented in this encounter Care Teams Welding Robot Operator Relationship Specialty Start Date End Date Liana Tovar MD PCP - General 03/08/[address] [place] [address] documented as of this encounter
--- OUTSIDE RECORDS SUMMARY | 2022-05-17 08:28 | XMS_ITS | Encounter Summary ---
:1985 Author Organization [employer] Address [address] [place] [address] Care Team Providers Name Role Phone Liana Tovar MD Primary Care Provider Reason for Visit Reason Comments QUESTIONS, GENERAL Encounter Details Date Type Department Care Team Description 03/08/[address] [facility] [address] Johnson QU ESTIONS, GENERAL Dermatology [address] [place] [address] [place] [id number] [phone] Social History Tobacco Use Types Packs/Day Years [...] on file documented as of this encounter Nursing Kerry Lopez - 03/08/2021 10:59 AM CDT Liana called because she had a medical laser treatment on 02/14/21 and said that she will need another one. She is under the impression that Dr. Johnson wants her to wait 3 weeks from the first appointment. Please let me know when to put her on the schedule. Thank you. documented in this encounter Plan of Treatment Upcoming Encounters Date Type Specialty Care Team Description 05/18/2022 Appointment Rheumatology Erasmo Horn MD [address] [facility] [address] [id number] (Wo rk) documented as of this encounter Visit Diagnoses Not on filedocumented in this encounter Care Teams Still Photographer Relationship Specialty Start Date End Date Liana Tovar MD PCP - General 03/08/15 [address] [place] [address] documented as of this encounter
--- OUTSIDE RECORDS SUMMARY | 2022-05-17 08:28 | XMS_ITS | Encounter Summary ---
:1985 Author Organization [employer] Address [address] [place] [address] Care Team Providers Name Role Phone Liana Tovar MD Primary Care Provider Reason for Referral Therapies (Routine) - New Request Specialty Diagnoses / Procedures Referred By Contact Refer red To Contact Diagnoses Chronic pain syndrome Erasmo Horn MD [address] [place], [place] [address] Referral ID Status Reason Start Date Expiration Date Visits V isits Requested Authorized [id number] New Request 07/11/2021 07/11/2022 1 1 Scheduling Instructions Your provider has recommended an appoint ment with [facility]. You may call [phone] to schedule yo ur appointment. We suggest you call your health insurance company about your cove rage and benefits for this appointment. NICS ELECTRICAL ENGINEER Reason for Visit Reason Comments CONSULT Encounter Details Date Type Department Care Team Description 07/11/2021 Office Visit Erasmo Calhoun MD Inflammatory spondylopathy, unspecified spinal region (HRC) (Primary Dx); Rheumatology [address] High risk medication use; [address] [facility] Chronic pain syndrome; [place] [address] [place], [place] Lumbar degenerative disc dis ease (HRC) [phone] [id number] Social History Tobacco Use Types Packs/Day Years [...] on file documented as of this encounter Patient Instructions Patient InstructionsErasmo Horn MD - 07/11/2021 2:30 PM CST 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 Previously failed therapy with methotrexate recently with sulfasalazine. On Cosentyx 150 mg injections every 4 weeks with some improvement in her knee pain and swelling but continues to the pain 3 to 4 weeks after the injection. Her main complaint today is increased back pain which is persistent during the day. Recent MRI of the cervical and lumbar spine showed mild degenerative disc disease. No signs of inflammatory spondyloarthropathy was documented on MRI reports. Clinically there is a component of chronic pain syndrome with myofascial pain overwhelming the symptoms. Chronic pain syndrome Fibromyalgia is common in patients with high levels of stress, depression, anxiety and PTSD. The treatment is challenging and multimodality approach is recommended including physical therapy, pain management, relaxation techniques, water therapy, yoga, delores chi, acupuncture, mental health practitioner. Recommend continue follow-up appointment with the Pain Clinic. In the meantime recommend a trial of increasing Cosentyx to 300 mg monthly injection and see there is any benefit in regards to her joint pain predominantly in the knees and maybe the back. Recommend a follow-up appointment 3-4 months. NICS ELECTRICAL ENGINEER documented in this encounter Progress Notes Erasmo Horn MD - 07/11/2021 2:30 PM CST Rheumatology New Patient/Consult Note Referral: PATIENT SELF REFERRAL, [place] [address] Chief Complaint Patient presents with ??? CONSULT HPI: Liana Juarez is a 35 y.o. female with medical history as stated below presents today with a chief complaint of increased arthralgia and myalgia. 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 Patient has had symptoms since she was 19 years old. At that time she is to have pain in her lower back and hips. In the past she tried methotrexate but then it was discontinued secondary to a concern for an activemelanoma. Reviewing the rheumatology note from the last clip bolter [facility] had intermittent arthrocentesis and intra- articular steroid injection in her right knee. The previous synovial fluid analysis document the low-grade inflammatory process. She took sulfasalazine then was recently started on Cosentyx 150 mg monthly injections. Patient feels that the Cosentyx has helped with the knee pain and swelling up to certain degree. Shefeels that 2-3 weeks after the injection her joint pain is going up. Has been complaining of upper and lower back pain. When she wakes up in the morning she has mid backpain in the midthoracic area then during the day the pain spreads in the whole back. Previously patient tried Celebrex with no significant benefit. Was recently seen by [facility]. Recently was given diclofenac twice daily with no significant benefit. Recently patient had steroid injection along the paraspinal muscles of the back with significant improvement lasting only for 2 weeks. Had recently MRI of the cervical and lumbar spine at [facility]. I was able to view the MRI report through patient's portal. The MRI document mild degenerative disc disease in the cervical and lumbar spine. No signs of inflammatory spondyloarthropathy was documented. No signs of spinal stenosis. Currently on Cymbalta 60 mg daily. Previously could not tolerate Lyrica secondary to feeling shaky. Recently has been of sulfasalazine with no significant change on her symptoms. Patient does not sleep well, wakes up often during the night, feels tired in the morning, fogginess in her thinking. Patient accepts that there is a component of active anxiety. Denies any current red hot swollen joints. Intermittently she can skin rashes in the elbows lasting for couple of days. Status post total hysterectomy with salpingectomy. No known family history of autoimmune disease. ROS: Comprehensive review of systems form filled out by the patient for today's visit was reviewed, sent to SDOC, and is as noted above and/or notable for: Headaches, anxiety, joint and muscle stiffness, upper and lower back pain, right knee pain. Patient Active Problem List Diagnosis ??? 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 Bursitis Trochanteric Right 05/27/2009 ??? Chest [...] CANCER EXCISION Outpatient Encounter Medications as of 07/11/2021 Medication Sig Dispense Refill ??? atenolol (TENORMIN) [...] 300 mg to skin every 4 weeks. 2 Each 11 ??? diclofenac (VOLTAREN) 75 [...] ??? rizatriptan (MAXALT) 10 MG tablet ??? [DISCONTINUED] ascorbic acid (VITAMINC) 500 MG tablet Take 1,000 mg by mouth daily (every 24 hours). ??? [DISCONTINUED] buPROPion (WELLBUTRIN XL) 150 MG 24 hour release tablet Take 150 mg by mouth daily. ??? [DISCONTINUED] Calcium Carbonate (CALCIUM 600 OR) Take by mouth. pt unsure of dose ??? [DISCONTINUED] celecoxib (CELEBREX) 200 MG capsule Take 200 mg by mouth daily. ??? [DISCONTINUED] clindamycin (CLEOCIN T) 1 % lotion Apply to left armpits once a day for 2 weeks 60 mL 0 ??? [DISCONTINUED] clindamycin (CLEOCIN T) 1 % lotion Use on face once to twice a day 60 mL 11 ??? [DISCONTINUED] COSENTYX SENSOREADY, 300 MG, 150 MG/ML SOAJ ??? [DISCONTINUED] fluocinonide (LIDEX) 0.05 % cream Apply topically to bumps on legs once and coverwith a bandage. 60 g 1 ??? [DISCONTINUED] FLUoxetine (PROZAC) 20 MG capsule ??? [DISCONTINUED] SYNTHROID 50 MCG tablet Take 50 mcg by mouth daily. ??? [DISCONTINUED] triamcinolone acetonide (KENALOG) 0.1 % cream Apply to armpit and arm rash daily for 2 weeks. 60 g 0 No facility-administered encounter medications on file as of 07/11/2021. Allergies Allergen Reactions ??? Hydrocodone Hives ??? Lac Bovis Hives ??? Oxycodone Hives ??? Adhesive Rash PN: Paper tape & Tegaderm is okay ??? Bacitracin Rash ??? Metronidazole Other, see comments PN: Headache ??? Other Hives PN: Dairy ??? Wound Dressing Adhesive Rash PN: Paper tape & Tegaderm is okay ??? Cicero Oil Hives Social History Substance and Sexual Activity Alcohol Use No Comment: Alcoholic Drinks/day: Amount:1-2 drinks; Freq:=< Monthly; Social History Tobacco Use Smoking Status Former Smoker ??? Packs/day: 0.50 ??? Years: 4.00 ??? Pack years: 2.00 ??? Types: Cigarettes ??? Quit date: 06/27/2013 ??? Years since quittin.0 Smokeless Tobacco Never Used Tobacco Comment Smoking History Packs/day: EXAM There were no vitals taken for this visit. General Appearance: Pleasant, alert, appropriate appearance for age. No acute distress HEENT Exam: Normocephalic, atraumatic, clear sclera. Neck Exam: Supple, no masses or nodes. Chest/Respiratory Exam: Normal chest wall and respirations. Clear to auscultation. Cardiovascular Exam: Regular rate and rhythm, no murmur. Musculoskeletal Exam: Normal muscle bulk. Presence of diffuse point tenderness in her paraspinal muscles of the upper and lower back. Tenderness in her upper and lower extremities with palpation. No signs of active synovitis. No joint effusion. Full range of motion in all 4 extremities. Normal muscle strength in all 4 extremities. [...] Creatinine Serum 0.70 08/29/2016 Assessment and Plan: Her previous rheumatologic workup at [facility] showed a negative LISA, negative RF and CCP, positive thyroid peroxidase antibodies, negative TTG IgA antibodies. Reviewing records from the previous clip bolter and wrapper it was documented negative HLA B27. Negative screen for TB and hepatitis B and C. A synovial fluid analysis in June 2018 done at [facility] showed 8117 nucleated cells. Recent MRI of the cervical spine and lumbar spine done at [facility] showed mild degenerative disc disease.No signs of inflammatory spondyloarthropathy was documented. 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 Previously failed therapy with methotrexate and recently sulfasalazine. On Cosentyx 150 mg injections every 4 weeks with some improvement in her knee pain and swelling but continues to have joint pain 3 to 4 weeks after the injection. Patient does not feel it is lasting the full 4 weeks. Lately also patient has been complaining of increased back pain which is persistent during the day. Recent MRI of the cervical and lumbar spine showed mild degenerative disc disease. No signs of inflammatory spondyloarthropathy was documented on MRI reports. Clinically there is a component of chronic pain syndrome with myofascial pain overwhelming the symptoms. Patient satisfies 2010 ACR criteria for fibromyalgia with a widespread pain index of 7 and symptom severity score of 8. Chronic pain syndrome Fibromyalgia is common in patients with high levels of stress, depression, anxiety and PTSD. The treatment is challenging and multimodality approach is recommended including physical therapy, pain management, relaxation techniques, water therapy, yoga, delores chi, acupuncture, mental health practitioner. Recommend continue follow-up appointment with the Pain Clinic. Recommend lifestyle renewal program here at [facility]. In the meantime recommend a trial of increasing Cosentyx to 300 mg monthly injection and see if there is any benefit in regards to her joint pain predominantly in the knees and maybe the back. Recommend a follow-up appointment 3-4 months. Thank you for letting me participate in the care of this patient. Please don't hesitate to contact me if you have any questions. Total of 70 minutes was spent reviewing previous medical records, consulting patient and charting. Erasmo Horn. Rheumatology [facility] 07/11/2021 This note consists of symbols derived from keyboarding, and voice recognition software. As a result,wrong word or '[id number]' substitutions may have occurred due to the inherent limitations of voice recognition software. There may be errors in the script that have gone undetected. Please consider this when interpreting information found in this chart. NICS ELECTRICAL ENGINEER documented in this encounter Plan of Treatment Upcoming Encounters Date Type Specialty Care Team Description 05/18/2022 Appointment Rheumatology Erasmo Horn MD [address] [facility] N [id number] (Wo rk) Scheduled Referrals Name Type Priority Associated Diagnoses Order S chedule Occupational Therapy Referral Routine Chronic pain syndrom e Ordered: 07/11/2021 documented as of this encounter Visit Diagnoses Diagnosis Inflammatory spondylopathy, unspecified spinal region (HRC) - Primary High risk medication use Encounter for long-term (current) use of other medications Chronic pain syndrome Lumbar degenerative disc disease (HRC) Degeneration of lumbar or lumbosacral in tervertebral disc documented in this encounter Care Teams Wire Bound Box Machine Helper Relationship Specialty Start Date End Date Liana Tovar MD PCP - General 03/08/15 [address] [place] [address] documented as of this encounter
--- OUTSIDE RECORDS SUMMARY | 2022-05-17 08:28 | XMS_ITS | Encounter Summary ---
:1985 Author Organization [employer] Address [address] [place] [address] Care Team Providers Name Role Phone Liana Tovar MD Primary Care Provider Encounter Details Date Type Department Care Team Description 08/18/2021 Orders Only HIM DEPARTMENT Provider, Constance ragsdale [place] [address] Social History Tobacco Use Types Packs/Day Years [...] Description 05/18/2022 Appointment Rheumatology Erasmo Horn MD [address] [id number] (Wo rk) documented as of this encounter Procedures Procedure Name Priority Date/Time Associated Diagnosis Comme nts MRI-SCAN 08/18/2021 Results for thi s procedure are in the resu lts section. documented in this encounter Results MRI-SCAN (08/18/2021) Anatomical Region Laterality Modality Other Narrative This result has an attachment that is no t available. Interface Provider DUMMY/OTHER/AR documented in this encounter Visit Diagnoses Not on filedocumented in this encounter Care Teams Cash Management Coordinator Relationship Specialty Start Date End Date Liana Tovar MD PCP - General 03/08/15 [address] [address] documented as of this encounter
--- OUTSIDE RECORDS SUMMARY | 2022-05-17 08:28 | XMS_ITS | Encounter Summary ---
:1985 Author Organization [facility] Address [address] [place] [address] Care Team Providers Name Role Phone Liana Tovar MD Primary Care Provider Reason for Visit Reason Comments CHRONIC PAIN Therapies (Routine) - New Request Specialty Diagnoses / Procedures Referred By Contact Refer red To Contact Diagnoses Chronic pain syndrome Erasmo Horn MD [address] [place], [place] [address] Referral ID Status Reason Start Date Expiration Date Visits V isits Requested Authorized [id number] New Request 07/11/2021 07/11/2022 1 1 Encounter Details Date Type Department Care Team Description 08/04/2021 Office Visit [facility] Yulisa Dykes, Chronic pain syndrome Center - Lifestyle OTR/L (Primary Dx) Renewal [address] [address] [place] [address] [place], [place] [phone] (Wo rk) Social History Tobacco Use Types [...] documented as of this encounter Progress Notes Yulisa Dykes, OTR/L - 08/04/2021 2:00 PM CST [address] [facility] Occupational Therapy - Lifestyle Renewal Evaluation/Plan of Care Initial Certification Period: 08/04/2021 to 11/06/21 Referring Provider: Erasmo Horn Visit Diagnosis: 1. Chronic pain syndrome Precautions: Chronic polyarticular juvenile rheumatoid arthritis, migraines, Lumbar degenerative disc disease (HRC), Rheumatoid arthritis involving multiple sites with positive rheumatoid factor Orders: Evaluation and treat. Lifestyle Renewal. Onset/Referral Date: 07/11/21 SUBJECTIVE Reason for visit: Patient presents to Occupational Therapy today for an evaluation. Patient currently reports decreased function with daily activities due to headache, pain. Patient Therapy Goals: To have more strategies to support Past Medical History: Patient has a past medical history of Abnormal uterine bleeding (AUB) (11/04/2015), Arthritis (HRC), Arthritis Juvenile Rheumatoid Chronic (07/04/2005), Bursitis Trochanteric Right (05/27/2009), Chest discomfort (11/04/2015), Dysplastic Nevus (08/22/2010), Elevated blood pressure reading without diagnosis of hypertension (11/04/2015), Fx Bone NOS Closed (05/26/2008), HARRIS (headache), Melanoma (HR), Menorrhagia (05/26/2008), Obesity ([facility]), Obesity due to excess calories (HRC) (11/04/2015), and Rheumatoid arthritis(714.0) ([facility]). Pain Rating: Best 4-5/10; Worst 7-8/10 Symptoms: Patient has had pain due to juvenile RA for 17 years. Per referring provider's note Is status post total hysterectomy with salpingectomy. MRI of the cervical and lumbar spine showed mild degenerative disc disease. No signs of inflammatory spondyloarthropathy was documented on MRI reports. Pain presents in back, neck, hands and has dull ache and is constantly present. Reports experiencing pain in dominant hand that impacts participation in daily activities. Experiences migraines 2x a week, start atright eye and move across forehead. Has been experiencing brain fog for the past 6-7 months. Experiences higher levels of fatigue in winter. Notes that she has sensitivity to in busy workplace environme nt. Per referring provider's note patient stated there is a component of anxiety that may be underlying some of the myofascial chronic pain symptoms. Aggravating factors/habits: sitting, worse in the morning and then at the end of the day fatigue Relieving factors/habits: heat on low back, winter ADL/IADL Performance and Satisfaction: Activities that are impacted by pain include: Self-half-way management such as Kneeling and bending doing dishes, Meal prep-chopping, opening cans Role of caregiver to daughter with activities that require her to play on the floor Work Living Situation: Lives in house with , 4 year old daughter, 2 dogs and a cat Family roles, social relationships, and support networks: Patient reports receiving adequate supportfrom family and friends. Sleep Routine: Wakes up tired all the time, however does have consistent bed time. Usually watches TV before bed. Exercise Routine: Had been working out with on treadmill. Diet: Client reports regular meal times and nutritional food choices. Fluid Intake: Client reports drinking sufficient amounts of water. 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 Work Awareness: Reports she doesn't take lunch breaks. Works in a noisy environment, with strong smells (paint), recently was able to adjust the brightness in her office area and recently started usinga standing desk. Leisure/Interest and Level of Participation: Camping OBJECTIVE General: cooperative, motivated Cognition: WNL/WFL during evaluation, however patient reports recent onset of brain fog. Communication: WNL/WFL Posture and awareness: forward head Cervical AROM: To be assessed Shoulder screen: Limited by pain Jaw: tension Palpation: Tension in levators, upper trapezius, rhomboids, sub occipitals, SCMs, low back/lumbar spine or erector spinae Breathing/Respiration: To be assessed. Endurance/Fatigue: Client endorses fatigue. 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: To be assessed Sensory Sensitivities: Patient states increased sensitivity to the following sensory input: Vestibular sense: spatial disorientation Interoceptors: nausea Olfactory: smell sensitivity Vision: light sensitivity OT Outcomes: Patient Self Efficacy Questionnaire (PSEQ): 39 (Score range 0-60, where 60 is best) Clinical Global Impressions (CGI, impact of pain on quality of life): 6/10 (with 10 being worst impact) Today's Intervention/Charges: OT evaluation charges: moderate complexity: due to need for expanded review of medical records, additional review of medical and psychosocial history, co- morbidities impacting function and symptoms, 3-5 performance deficits, several treatment options, and minimal to moderate modification required during evaluation. Self Care/Home management trainin minutes: Initiated client education on chronic pain symptom management and lifestyle changes that allow for improved control of pain and fatigue including: engaging in healthy sleep habits (pillow positioning), role of regular aerobic exercise (resuming low impact walking on treadmill) in managing pain, use of activity pacing (20/20/20 visual breaks while working at the computer) and ADL modification strategies (using built up community service manager handles on kitchen wear itemsto assist with meal prep), and role of mindfulness and relaxation techniques (listening to guided meditations such as insight timer). Additionally provided education on the use of essential oils to be used as a substitute smell in her environment while at work. Client receptive to education and reported motivation to incorporate healthy lifestyle habits into daily routine to improve symptom management and increase overall wellbeing. Reported plan to begin gentle exercise program and to take mini breaks throughout the day with sensory regulation/relaxation strategy. With moderate therapist facilitation client was able to problem solve barriers to creating lifestyle changes and come up with a plan to address barriers. Education received: Pain cycle, nervous system thresholds, and lifestyle behaviors that contribute to pain Posture & ergonomics - sitting/standing/ADLs/work Lifestyle modification and prioritization of self care routine Sleep hygiene and routine Pacing and family/work/leisure balance Exercise, nutrition, and healthy living habits Neuromuscular re education, relaxation techniques, Qigong, breath work, stress management and positive self talk. Sensory processing and self regulation Occupational therapy role in chronic pain Response to Treatment: Client demonstrated/verbalized understanding of self-care strategies. Client receptive to lifestyle adaptations discussed and willing to begin making changes. Timed Code Treatment Minutes: 15 Total Treatment Minutes: 55 ASSESSMENT Therapist Impression/Summary: Client is a 35 year old female who presents for Occupational therapy evaluation secondary to chronicpain. Client reports symptoms include pain in back, neck and hands, migraines, nervous system sensitivity, and fatigue. Client's PSEQ score of 39/60 and CGI score of 6/10 suggests client experiences moderate impact on daily functioning due to pain symptoms. Client has demonstrated a decline in abilityto participate and perform daily activities secondary to symptoms. Client demonstrates nervous system and sensory system sensitivity, fair posture and body awareness, and limited self-regulation and coping skills impacting daily activities and overall well being. Client presents with positive and motivated affect with regard to learning strategies of symptom management with non-pharmacological methods. Following initial education, client demonstrates increased understanding of how habits and routines impact pain symptoms and daily functioning. Client will benefit from ongoing skilled occupational therapy services for education and training on healthy lifestyle habits and routines, nervous system calming strategies, activity pacing strategies, and self regulation techniques to maximize occupational performance and participation, promote optimal well being, and prevent further decline in function. Significant Impairments: pain, autonomic dysregulation, sensory processing impairments, fatigue, myofascial tension Evaluation Complexity Rating: Occupational profile and history: moderate Assessment: moderate Clinical decision making:moderate Overall complexity rating:moderate Recommendations: Continue skilled occupational therapy Functional Limitations: The above impairments limit patient's performance tolerating and completing self care, work and leisure safely and independently. Goals/Functional Outcomes: 1. Client will demonstrate understanding, be able to identify, and implement at least two strategiesfor proper posture and ergonomic techniques at home and at work to prevent pain and increase productivity within 8 sessions. 2. Client will identify 2-3 triggers to stress/symptoms as well as identify/implement 2-3 pain management techniques to self manage symptoms and promote participation in ADLs/IADLs within 8 sessions. 3. Through facilitation of therapist and neuromuscular re-education, client will be able to identifyand implement one or more strategies to decrease muscle tension during work and 8 to prevent exacerbation of pain and headaches and allow for optimal participation in daily occupations within 8 sessions. 4. Client will report improved sleep quality for overall well-being and decreased pain by implementing at least 2 sleep hygiene techniques 5 out of 7 nights per week within 8 sessions. 5. Client will demonstrate improved ADL/work/leisure balance through self report and overall increased participation in leisure activities, satisfaction in self care, productivity in work demands, and overall well-being within 8 sessions. 6. Client will demonstrate a decrease in the impact of pain on quality of life according to the CGI (Clinical global impression), by consistently implementing 3 or more lifestyle modification strategies to promote participation and satisfaction in ADLs/IADLs/leisure, improve productivity, and optimizewell-being within 8 sessions. 7. Patient will demonstrate understanding of three compensatory techniques to self-regulate sensory system and prevent/decrease pain in order to complete everyday activities within 8 sessions. 8. Client will demonstrate understanding of fatigue management principles and utilize energy conservation strategies while completing everyday activities within 8 sessions. 9. Client will demonstrate independence in home program to address pain/symptom management includingan aerobic exercise regimen, healthy lifestyle habits, self- regulation techniques, and strong understanding of how to modify daily activities/environments for improved performance within 8 sessions. Potential Barriers to Goal Achievement or Learning: none Prognosis: Good PLAN Planned Intervention/Education: Sensory regulation, pain neuroscience education, ADL/Self management, therapeutic exercise, therapeutic activity, self care/home management, neuromuscular re-education, cognitive skills development, manual therapy, biofeedback, modalities, and autonomic self regulation training. Frequency: 1-2 x week Duration: 90 days Discharge Plan: Patient will be discharged from therapy when goals are achieved or patient plateaus in progress. Informed Consent: The patient was educated on the condition, planned therapy intervention and expectation from treatment. Goals were a collaborative effort of the therapist and patient caregiver. Risks, benefits and alternatives to treatment have been explained. Patient and/or family in agreement with the care plan. Plan for Next Treatment: Buffer strategies for work PNE Restorative yoga Biofeedback The video software engineer is completed by the therapist and the referring clinician's electronic signature certifies medical necessity for the plan above. Dixie Jimenes, GEGE 3:35 PM 08/08/2021 Patient was treated and documentation was completed under my direct supervision. I have reviewed andagree/ approve with all the treatment and content. Yulisa Dykes, SALEEMR/Marcus 08/08/2021, 3:39 PM LE GIRL documented in this encounter Plan of Treatment Upcoming Encounters Date Type Specialty Care Team Description 05/18/2022 Appointment Rheumatology Erasmo Horn MD [address] [facility] [address] [address] (Wo rk) Scheduled Referrals Name Type Priority Associated Diagnoses Order S chedule Occupational Therapy Referral Routine Chronic pain syndrom e Ordered: 07/11/2021 documented as of this encounter Visit Diagnoses Diagnosis Chronic pain syndrome - Primary documented in this encounter Care Teams Waiter/Waitress Tourist Class Relationship Specialty Start Date End Date Liana Tovar MD PCP - General 03/08/15 [address] [place] [id number] documented as of this encounter
--- OUTSIDE RECORDS SUMMARY | 2022-05-17 08:28 | XMS_ITS | Clinical Summary ---
:1985 Author Organization [facility] Address [address] [place] [address] Care Team Providers Name Role Phone Liana Tovar MD Primary Care Provider Source Comments You are receiving this document as you are listed as the primary care provider,follow-up provider, or the patient has been referred to you for consultation.This is in compliance with the Medicare and Medicaid EHR Incentive Program,which states Providers who transition their patient to another setting of careor provider of care or refers their patient to another provider of care shouldprovide summarycare record for each transition of care or referral. [facility] Allergies Active Allergy Reactions Severity Noted Date Comments Adhesive Rash 09/30/2014 PN: Paper tape & Tegaderm is oka y [place] Oil Hives Low 11/19/2014 Bacitracin Rash 08/02/2010 Hydrocodone Hives High 07/11/2021 Lac Bovis Hives High 10/23/2015 Metronidazole Other, see comments 10/15/2009 PN: Hea dache Nuts Hives High 10/23/2015 almonds Other Hives 09/30/2014 PN: Dairy Oxycodone Hives High 07/11/2021 Wound Dressing Adhesive Rash 09/30/2014 PN: Paper tape & Tegaderm is oka y Medications Medication Sig Dispensed Refills Start End Status Date Date cholecalciferol Take 1 tablet by 90 3 Active (VITAMIND3) 2000 mouth daily 1 UNITS tablet (every 24 hours). ondansetron Take 1 tablet by 30 tablet 0 A ctive (ZOFRAN-ODT) 4 MG mouth every 8 5 disintegrating hours as needed tablet for Nausea or Vomiting. Dissolve tablet on tongue colestipol TAKE 2 TABLETS BY 11 A ctive (COLESTID) 1 g MOUTH TWO TIMES A 9 tablet DAY. SWALLOW WHOLE WITH LIQUID. EPINEPHrine INJECT ONE PEN 2 Each Act randee (EPIPEN) 0.3 INTO MUSCLE ONE 0 MG/0.3ML injection TIME NEEDED FOR ALLERGIC REACTION atenolol (TENORMIN) Take 50 mg by 0 Active 50 MG tablet mouth daily. 0 DULoxetine Take 60 mg by 0 Activ e (CYMBALTA) 60 MG mouth daily. 1 capsule rizatriptan 0 Active (MAXALT) 10 MG 1 tablet diclofenac Take 75 mg by 0 Activ e (VOLTAREN) 75 MG mouth two times 1 enteric coated daily as needed. tablet COSENTYX Apply 300 mg to 2 Each Acti ve SENSOREADY, 300 MG, skin every 4 1 150 MG/ML weeks. 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 NOT TO EXCEED 3 DOSES IN [address] 1 40 0 Disconti nued (CLEOCIN) 2 % Applicatorful 0 010 (E rror) vaginal cream vaginally nightly. Active Problems Problem Noted Date Inflammatory spondylopathy 07/11/2021 High risk medication use 07/11/2021 Chronic pain syndrome 07/11/2021 Lumbar degenerative disc disease 07/11/2021 Rheumatoid arthritis involving multiple sites with pos itive rheumatoid 09/04/2016 factor Palpitations 09/04/2016 Migraine with aura and without status migrainosus, not intractable 09/04/2016 Obesity due to excess calories 11/04/2015 Elevated blood pressure reading without diagnosis of h ypertension 11/04/2015 Chronic polyarticular juvenile rheumatoid arthritis Overview: LW Onset: ; Arthritis Juvenile Rheumatoid Chronic Resolved Problems Problem Noted Date Resolved Date Elevated blood pressure reading without diagnosis of 016 11/04/2015 hypertension Abnormal uterine bleeding (AUB) 11/04/2015 09/04/19 17 Chest discomfort 11/04/2015 09/04/2016 Neoplasm of uncertain behavior of skin 08/22/2010 0 09/04/2016 Overview: LW Modifier: face ; Dysplastic Nevus Enthesopathy of hip region 05/27/2009 09/04/2016 Overview: Bursitis Trochanteric Right Neoplasm of uncertain behavior of skin 04/19/2009 0 09/04/2016 Overview: LW Modifier: congenital type, breast ; Dysplastic Nevus Contraceptive management 04/15/2009 11/04/2015 Overview: LW Onset: 03/04 ; Contraceptive Management NOS Excessive or frequent menstruation 05/26/200809/04 Overview: LW Onset: 2006 ; Menorrhagia Closed fracture of bone 05/26/2008 11/04/2015 Overview: LW Modifier: right middle LW Onset: 1999 ; Fx Bone NOS Closed Closed fracture of bone 05/26/2008 11/04/2015 Overview: LW Modifier: right wrist LW Onset: 1999 ; Fx Bone NOS Closed Immunizations Name Administration Dates Next Due Flu Vac Preserv Free (3+yrs) 08/02/2010, 06/30/2008, 006, 08/25/2005 H1n1 Miv Sanofi 3+ Yr (Injected) 08/24/2009 HepB Adult (Engerix-B, 20+ yrs, 3 10/23/2000 dose series) HepB Ped/Adol (0-18 yrs) 05/27/2001, 11/25/2000 Influenza IIV4 (Quadrivalent) 0.5mL 06/16/2020, 09/04/2016 (63785) Moderna (Spikevax) COVID-19, 12+ Yrs 12/07/2020, 11/09/2020 Refusal To Vaccinate 05/26/2008 TB Skin Test (PPD) 04/28/2008 TDAP (BOOSTRIX) 04/27/2006 Tdap 03/01/2017 Family History Medical History Relation Name Comments Diabetes Father Hypertension Father Fibroids [Other] Mother Hypertension Mother Cancer, Breast Maternal Grandmother Cancer, Colon Paternal Grandfather Relation Name Status Comments Father Alive Mother Alive Maternal Grandfather Alive Maternal Grandmother Alive Paternal Grandfather Paternal Grandmother Sister Alive Social History Tobacco Use Types Packs/Day Years [...] Assigned at Date Recorded Not on file Last Filed Vital Signs Vital Sign Reading Time Taken Comments Blood Pressure 119/83 11/15/2021 8:28 AM CDT Pulse 71 11/15/2021 8:28 AM CDT Temperature 36.1 ??C (97 ??F) 04/14/2021 1:01 PM CDT Respiratory Rate 16 08/18/2016 1:07 PM BUSINESS INTELLIGENCE REPORTING ANALYST Oxygen Saturation 100% 12/20/2015 9:08 AM CDT Inhaled Oxygen Concentration - - Weight 98.3 kg (216 lb 12.8 oz) 11/15/2021 8:28 AM CDT Height 157.5 cm (5' 2) 04/14/2021 1:01 PM CDT Body Mass Index 39.65 04/14/2021 1:01 PM CDT Plan of Treatment Upcoming Encounters Date Type Specialty Care Team Description 05/18/2022 Appointment Rheumatology Erasmo Horn MD [address] [facility] [place] [address] [id number] (Wo rk) Health Maintenance Due Date Last Done Comments Hep C Screening (Preventive 1987 Services) HIV Screening (Preventive 2003 Services) Adult Preventive Visit 12/25/2005 Pap 11/03/2018 11/04/2015, 10/09/2011, 08/02/2010, Additional history exists COVID-19 Vaccine (3 - 05/09/2021 12/07/2020, 11/09/2020 Booster for Moderna series) Influenza (#1) 2022 08/09/2021, 06/16/2020, 09/04/2016, Additional history exists DTaP/Tdap/Td (3 - Tdap) 03/01/2027 03/01/2017, 04/27/2006 Zoster/Shingles (1 of 2) 12/25/2037 HepB Completed 05/27/2001, 11/25/2000, 10/23/2000 HPV Vaccine Aged Out No longer eligib le based on patient 's age to complete this topic HepA Aged Out No longer eligib le based on patient 's age to complete this topic Hib Aged Out No longer eligib le based on patient 's age to complete this topic IPV (Polio) Aged Out No longer eligib le based on patient 's age to complete this topic MCV4 Aged Out No longer eligib le based on patient 's age to complete this topic Pneumococcal Aged Out No longer eligib le based on patient 's age to complete this topic Insurance Payer Benefit Plan / Subscriber ID Effective Dates Phone Addre ss Type [facility] FULLY [id number] 2019-[facility] Commercial INSURED t Liana Juarez Personal/Family Self [address] (Home) [place] [address] Advance Directives Latest Code Status on File Code Status Date Activated Date Inactivated Comments Full Code 03/09/2011 6:50 AM 03/09/2011 11:27 AM Care Teams Instructional Materials Director Relationship Specialty Start Date End Date Liana Tovar MD PCP - General 7/13/[address] [place] [address]
--- OUTSIDE RECORDS SUMMARY | 2022-05-17 08:28 | XMS_ITS | Encounter Summary ---
:1985 Author Organization [employer] Address [address] [place] [address] Care Team Providers Name Role Phone Liana Tovar MD Primary Care Provider Encounter Details Date Type Department Care Team Description 08/04/2021 Notes/Orders [facility] - Yulisa Dykes, OTR/L Lifestyle Renewal [address] [facility] [address] [place], [place] [id number] [place] [address] [id number] [phone] Social History Tobacco Use Types Packs/Day Years [...] as of this encounter Progress Notes Yulisa Dykes OTR/L - 08/04/2021 11:59 PM CST [address] [facility] Occupational Therapy Discharge Summary Liana Juarez has not attended therapy since last documented visit. There are no further visits scheduled at this time and Liana is currently considered discharged from therapy. Unable to assess current level of function and goals due to unplanned discharge. OT - Discharge Total Visits: 1 Reason for discharge: Patient has not been consistent with attendance and/or failed to schedule appointments as planned. Primary Therapist: Discharging therapist Please see previous visit documentation of status at last treatment. LING Perdomo/Marcus documented in this encounter Plan of Treatment Upcoming Encounters Date Type Specialty Care Team Description 05/18/2022 Appointment Rheumatology Erasmo Horn MD [address] [place] [id number] (Wo rk) documented as of this encounter Visit Diagnoses Not on filedocumented in this encounter Care Teams Soc Analyst Relationship Specialty Start Date End Date Liana Tovar MD PCP - General 03/08/[address] [place], [place] [address] documented as of this encounter
--- OUTSIDE RECORDS SUMMARY | 2022-05-17 08:28 | XMS_ITS | Encounter Summary ---
:1985 Author Organization [employer] Address [address] [place] [address] Care Team Providers Name Role Phone Liana Tovar MD Primary Care Provider Encounter Details Date Type Department Care Team Description 07/19/2021 sapp[facility] Mcdowell [phone] Social History Tobacco Use Types Packs/Day Years [...] documented as of this encounter Progress Notes FAMILY MEDICINESAPPHIRE PROVIDER - 07/19/2021 9:17 AM CST sapp[facility] Treatment Plan Diagnosis Scabies Exposure Visit Date July 19, 2021 Liana Gandhiugh Date of : 89 Provider Isabell Longoria, Nurse Practitioner Note From Provider ALON Gaines, thanks for using [facility]. Based on the information you shared in your interview, I have created this treatment plan just for you. Take care, Isabell MEDICAL DERMATOLOGIST Treatment Plan Let?? try a prescription medication to prevent you from getting scabies. I sent a prescription to [facility] . I??e also listed some additional self- care tips to help avoid spreading the infection to others. If you develop any symptoms, or if you have questions, please use the Request a CallBack button and we'll adjust your treatment for free. Order(s) permethrin 5% cream Apply liberally top single dose for 1 day Note: Apply from neck down-including fingers and toes. Leave on for 8-14 hours before washing thoroughly off. Refills: None Sent To: [facility] [address] [place], [place] [id number] Treatment Plan Self Care Tip Topics You May be Contagious Home Care Family Treatment Applying Scabicide What to Expect If you follow the recommendations I made on the Treatment tab, it will help prevent you from taqueria scabies. If you develop a rash, intense itching, or if you have questions, please use the Request a Call Back button and we'll adjust your treatment for free. What to Watch Out For Give us a call if you experience: ??? Intense itching, especially at night, after being treated for scabies exposure ??? A pimple-like rash My Conditions, Orders, Allergies as of July 19, 2021 Standard condition list Rheumatoid Arthritis Current orders permethrin (permethrin) Cosentyx Pen (2 Pens) (secukinumab) atenolol (atenolol) duloxetine (duloxetine) diclofenac sodium (diclofenac sodium) colestipol (colestipol) Allergies tramadol (tramadol), oral hydrocodone-ibuprofen (hydrocodone-ibuprofen), oral oxycodone (oxycodone), oral [employer] by [email or web address] We are an online clinic open 19/03. If you have any questions or comments about this visit, please call or email [email or web address] T GRAPHIC DESIGNER documented in this encounter Plan of Treatment Upcoming Encounters Date Type Specialty Care Team Description 05/18/2022 Appointment Rheumatology Erasmo Horn MD [address] [facility] [place] N [id number] (Wo rk) documented as of this encounter Visit Diagnoses Not on filedocumented in this encounter Care Teams Restaurant Lead Relationship Specialty Start Date End Date Liana Tovar MD PCP - General 03/08/15 [address] [place] [address] documented as of this encounter
--- OUTSIDE RECORDS SUMMARY | 2022-05-17 08:28 | XMS_ITS | Encounter Summary ---
:1985 Author [facility] Address [address] [place] [address] Care Team Providers Name Role Phone Liana Tovar MD Primary Care Provider Reason for Referral Procedure/Equipment (Routine) - Incomplete Specialty Diagnoses / Procedures Referred By Contact Refer red To Contact Diagnoses Acute pain of right knee Beau Hwang MD Procedures Knee support elastic/neoprene (A4467) [address] [place] [address] Referral ID Status Reason Start Date Expiration Date Visits V isits Requested Authorized [id number] Incomplete 04/17/2021 07/17/2022 1 1 Procedure/Equipment (Routine) - Incomplete Specialty Diagnoses / Procedures Referred By Contact Refer red To Contact Diagnoses Acute pain of right knee Beau Hwang MD Procedures MR Knee Rt WO IV Cont [address] [place] [address] Referral ID Status Reason Start Date Expiration Date Visits V isits Requested Authorized [id number] Incomplete 04/14/2021 07/14/2022 1 1 Procedure/Equipment (Routine) - Incomplete Specialty Diagnoses / Procedures Referred By Contact Refer red To Contact Diagnoses Acute pain of right knee Beau Hwang MD Procedures XR Knee Lt 1-2 Views Comparison [address] [place] [address] Referral ID Status Reason Start Date Expiration Date Visits V isits Requested Authorized [id number] Incomplete 04/14/2021 07/14/2022 1 1 Procedure/Equipment (Routine) - Incomplete Specialty Diagnoses / Procedures Referred By Contact Refer red To Contact Diagnoses Acute pain of right knee Beau Hwang MD Procedures XR Knee Rt 3 Views [address] [place] [address] Referral ID Status Reason Start Date Expiration Date Visits V isits Requested Authorized [id number] Incomplete 04/14/2021 07/14/2022 1 1 Reason for Visit Reason Comments Knee Pain or Injury RIGHT DOI: 04/13 MARIPOSA: TRAMPOL INE Encounter Details Date Type Department Care Team Description 04/14/2021 Office Visit TRILiana Beau Greenwood, Acute p ain of right Orthopedic Urgent MD knee (Primary Dx) Care [address] [facility] [facility] [address] [place], [place] [id number] [phone] Social History Tobacco Use Types Packs/Day Years [...] on one occasion? Comment: Alcoholic Drinks/day: Amount:1-2 08/20/2 016 drinks; Freq:=< Monthly; Sex Assigned at Date Recorded Not on file documented as of this encounter Last Filed Vital Signs Vital Sign Reading Time Taken Comments Blood Pressure - - Pulse - - Temperature 36.1 ??C (97 ??F) 04/14/2021 1:01 PM CDT Respiratory Rate - - Oxygen Saturation - - Inhaled Oxygen Concentration - - Weight - - Height 157.5 cm (5' 2) 04/14/2021 1:01 PM CDT Body Mass Index - - documented in this encounter Patient Instructions Patient InstructionsAddi Paez, ATC - 04/14/2021 12:[address] Beau Hwang MD Sports & Orthopedic Medicine Acute Injury Clinic Medication Requests: Prescriptions are not filled on Weekends or on Weekdays after 3:00PM For all medication refills: Request a refill using [email or web address] or contact your Pharmacy MRI Scheduling: To schedule an MRI at [facility] please call [phone] Paperwork Requests: Questions regarding FMLA or disability paperwork please call [phone] Phone lines are answered 8AM to 5PM Sunday - Sunday. General Scheduling: To schedule an appointment, please call [phone] [facility] Nurse Line: [phone] Workers??? Compensation: Please contact our department for any Work Comp concerns at Email: [email or web address] Diagnosis: 1. Acute pain of right knee Plan: Follow Up: After MRI results. You may walk-in after your MRI scan, or schedule an appointment for follow-up. If you have any questions regarding your visit or next steps, please contact us at [phone]. Imaging: You will be scheduled today for an MRI of your right knee. - Return to clinic immediately following your imaging exam to obtain results. Reports are generally read within 60 minutes of exam completion. Imaging Manager Content: [facility] [address] [id number]. Call [phone] to schedule. Medication Requests: Prescriptions are filled on Weekdays before 3:00PM For all medication refills: Request a refill using ScriptRxhart or contact your Pharmacy Paperwork Requests: FMLA or disability paperwork can be faxed to: [place] - [phone] Please allow 7-10 business days for completion of all paperwork. [facility] Worker's Compensation Services: E-mail Address: [email or web address] To request copies of your medical records, call: [phone] (option 4) documented in this encounter Progress Notes Beau Hwang MD - 04/14/2021 12:00 AM CDT NAME: LIANA JUAREZ CSN: [id number] CLINIC NOTE DATE OF SERVICE: 04/14/2021 : 1985 CHIEF COMPLAINT: Right knee pain. HISTORY OF PRESENT ILLNESS: 35-year-old female presents for evaluation of right knee pain, she developed yesterday. She was on a personal trampoline for about 10 minutes. She jumped up. She heard a popin her knee and then ended up falling down. She states that she has pain diffusely throughout her knee, feels like her knee is not really kind of straight. Feels like it is loose. She has tried some ice and Tylenol to this point. PAST MEDICAL HISTORY: Significant for rheumatoid arthritis. She has had fluid drained out of her knee in the past. 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 PHYSICAL EXAM: VITAL SIGNS: Temperature is 97.0. She is an awake, alert, female. Sclerae nonicteric. She has fair eye contact. Mucous members are moist. Vascular cap refill is normal. NEUROLOGICAL: Sensation is intact to light touch. MUSCULOSKELETAL: Examination of her right knee reveals a mild knee effusion. She is tender to palpation along the patellar retinaculum, patellar tendon, medial and lateral joint line. Extensor mechanism is intact. Range of motion zero to 80 degrees of knee flexion. Negative posterior drawer. Negative Frederick. She has a positive Renetta. RADIOGRAPH STUDIES: Reviewed. ASSESSMENT: Right knee pain, consider patellar dislocation or meniscus tear. PLAN: Will proceed with an MRI. Follow up after to discuss the results and further management. MD GISELE WYATT/AQS /[id number] Beau Hwang MD - 04/14/2021 12:00 AM CDT NAME: LIANA JUAREZ CSN: [id number] CLINIC NOTE DATE OF SERVICE: 04/14/2021 : 1985 Patient returned after MRI to go over the results. Please see Epic for full MRI report. ASSESSMENT: Patellar chondromalacia. PLAN: Educated the patient regarding her condition and management. After discussion, recommended symptomatic treatment, knee brace, formal physical therapy, activity modification. She can follow up on an as-needed basis. She verbalized understanding. MD GISELE WYATT/AQS /[id number] documented in this encounter Plan of Treatment Upcoming Encounters Date Type Specialty Care Team Description 05/18/2022 Appointment Rheumatology Erasmo Horn MD [address] [facility] [place] [id number] (Wo rk) documented as of this encounter Results MR Knee Rt WO [...] chondromalacia patella. Beau Hwang MD RAD MRI XR Knee Lt 1-2 Views Comparison (04/14/2021 [...] Diagnoses Diagnosis Acute pain of right knee - Primary Acute pain of right knee Acute pain of right knee Acute pain of right knee documented in this encounter Care Teams Cement Side Laster Relationship Specialty Start Date End Date Liana Tovar MD PCP - General 03/08/15 [address] [place] [address] documented as of this encounter
--- OUTSIDE RECORDS SUMMARY | 2022-05-17 08:28 | XMS_ITS | Encounter Summary ---
:1985 Author Organization [facility] Address [address] [place] [address] Care Team Providers Name Role Phone Manjit Tovar MD Primary Care Provider Reason for Visit Reason Comments LASER TREATMENT Encounter Details Date Type Department Care Team Description 03/16/2021 Office Visit Crista Ramsay MD (Primary Dx) [address] [facility] [address] [place] [address] [place], [place] [phone] [id number] Social History Tobacco Use Types Packs/Day Years [...] documented as of this encounter Progress Notes Nannette Walls RN - 03/16/2021 1:30 PM CDT Images from the original note were not included. Crista Johnson MD - 03/16/2021 12:00 AM CDT NAME: MANJIT JUAREZ [facility]: [id number] CLINIC NOTE DATE OF SERVICE: 03/16/2021 : 1985 SUBJECTIVE: Ms. Juarez is a 35-year-old female who presents today requesting second pulsed dye laser treatment for the vascular lesion at the left upper cheek. She had no problems with the pulsed dye laser treatment of 02/14/2021. She shares that the bruising resolved after about 5 or 6 days. She thinks the lesion is now half the size that it was initially. It still had some intermittent bleeding,but not as severe as previously. OBJECTIVE: GENERAL: Well-developed, well-nourished, very pleasant fair-skinned female who is appropriately groomed and oriented. SKIN: She does not appear antonio. At the left upper cheek, there is an approximately 1.5 mm roberto red smooth surface round papule with no active bleeding at this time. There is no scar or any pigment abnormality at the site. ASSESSMENT: Vascular lesion at the left upper cheek, favor roberto angioma, although with history a hemangioma in a deeper component or a central higher flow feeder vessel is considered. This has been highly symptomatic with bleeding problems. See also notes of 02/14/2021. PLAN: She would like to proceed with second pulsed dye laser treatment today. Risks and benefits reviewed. All of patient's questions were answered to her satisfaction. Informed consent obtained. The patient and all individuals in the room wore appropriate eye protection. There were no complications. Ice was applied after treatment for a few minutes. Sunscreen was applied. Post-op care instructions were given. The patient was instructed to call if there are any questions or concerns. She will return to clinic p.r.n. if this lesion has not completely resolved after the treatment of today. If it does resolve, no further treatment would be necessary unless it recurs. CRISTA JOHNSON MD RU/AQS /[id number] documented in this encounter Plan of Treatment Upcoming Encounters Date Type Specialty Care Team Description 05/18/2022 Appointment Rheumatology Erasmo Horn MD [address] [facility] N [id number] (Wo rk) documented as of this encounter Visit Diagnoses Diagnosis Roberto angioma - Primary Nevus, non-neoplastic documented in this encounter Care Teams Maintenance Engineer Oil Field Relationship Specialty Start Date End Date Manjit Tovar MD PCP - General 03/08/[address] [place] [address] documented as of this encounter
--- OUTSIDE RECORDS SUMMARY | 2022-05-17 08:28 | XMS_ITS | Encounter Summary ---
:1985 Author Organization [employer] Address [address] [place] [address] Care Team Providers Name Role Phone Liana Tovar MD Primary Care Provider Reason for Visit Procedure/Equipment (Routine) - Incomplete Specialty Diagnoses / Procedures Referred By Contact Refer red To Contact Diagnoses Acute pain of right knee Beau Hwang MD Procedures XR Knee Rt 3 Views [address] [facility] [place], [place] [address] Referral ID Status Reason Start Date Expiration Date Visits V isits Requested Authorized [id number] Incomplete 04/14/2021 07/14/2022 1 1 Encounter Details Date Type Department Care Team Description 04/14/2021 [address] [place] Beau Oliveira, Acute candido n of right Procedure [place] [address] knee Radiology [address] [facility] [address] [place], [place] [address] [place] [address] [phone] (Work) [phone] Social History Tobacco Use Types Packs/Day Years [...] Description 05/18/2022 Appointment Rheumatology Erasmo Horn MD [address] [facility] [place] [id number] (Wo rk) documented as of this encounter Procedures Procedure Name Priority Date/Time Associated Diagnosis Comme nts XR KNEE RT 3 VIEWS STAT 04/14/2021 1:15 PM Acute pain of ri ght Results for this CDT knee procedure are i n the [...] knee documented in this encounter Care Teams Park Keeper Relationship Specialty Start Date End Date Liana Tovar MD PCP - General 03/08/[address] [place] [address] documented as of this encounter
--- OUTSIDE RECORDS SUMMARY | 2022-05-17 08:28 | XMS_ITS | Encounter Summary ---
:1985 Author Organization [employer] Address [address] [place] [address] Care Team Providers Name Role Phone Liana Tovar MD Primary Care Provider Reason for Visit Reason Comments Prior Authorization For Medication Cosentyx dose incre ase Encounter Details Date Type Department Care Team Description 07/12/2021 Telephone [facility] [address] Erasmo Horn MD Prior Authorization For Rheumatology [address] Medication (Cosentyx [address] dose increase) [place] [address] [phone] Social History Tobacco Use Types Packs/Day Years [...] file documented as of this encounter Nursing Notes Chiqui Curtis - 07/12/2021 3:50 PM CST Dose increase for Cosentyx is Approved- Updated script t'd to [facility] CTOR OF PLANNING Chiqui Curtis - 07/12/2021 10:37 AM CST ----- Message from Erasmo Horn MD sent at 07/11/2021 3:15 PM DIRECTOR OF PLANNING ----- Taqueria Harris, Please submit the PA for Cosentyx 300 mg monthly injection. Thank you CTOR OF PLANNING documented in this encounter Plan of Treatment Upcoming Encounters Date Type Specialty Care Team Description 05/18/2022 Appointment Rheumatology Erasmo Horn MD [address] [facility] [id number] (Wo rk) documented as of this encounter Visit Diagnoses Diagnosis Inflammatory spondylopathy, unspecified spinal region (HRC) High risk medication use Encounter for long-term (current) use of other medications documented in this encounter Care Teams Metal Sprayer Production Relationship Specialty Start Date End Date Liana Tovar MD PCP - General 03/08/15 [address] [address] documented as of this encounter
--- OUTSIDE RECORDS SUMMARY | 2022-05-17 08:29 | XMS_ITS | Encounter Summary ---
:1985 Author Organization [email or web address] Address [address] [place] [address] Care Team Providers Name Role Phone Liana Tovar MD Primary Care Provider Reason for Visit Reason Comments CONSULT Dr. Knox referral Encounter Details Date Type Department Care Team Description 01/18/2021 Telephone [facility] [address] Nurse SHELLY Campbell T (Dr. Knox Dermatology Barney Philip referral) [address] [place], [place] [phone] Social History Tobacco Use Types Packs/Day Years [...] documented as of this encounter Nursing Notes Nannette Walls RN - 01/27/2021 12:53 PM CDT Patient accepted an appointment on 02/14/21 at 2 pm to check the vascular lesion at her left cheek. Explained the importance not being antonio for possible laser. Patient stated she understands and will be careful in the sun and wear sunscreen. Iwona Johnson MD - 01/27/2021 11:[address] Knox spoke with me yesterday about this patient. She has a vascular lesion at her left cheek that has been bleeding when it gets rubbed, so removal would be considered medically necessary. I willneed to see her for a medical consult and this could be in the morning or the afternoon. In case laser is recommended and in case treatment could perhaps be performed on the same day as theconsult, please share with her the importance of not being antonio at the time of our visit. Nannette Walls RN - 01/27/2021 11:22 AM CDT Do you want the appointment scheduled in a cosmetic appointment time in the afternoon or medical appointment time in the morning. Please advise. Thank you. NT Iwona Suarez RN - 01/27/2021 8:[address] Mccray spoke with Dr. Johnson about this patient. Dr. Johnson agreed to see patient and it would not be considered cosmetic. Can you reach out to patient and assist scheduling with Dr. Johnson as appropriate. 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 Biopsy would definitely leave a scar, so I recommended laser and I asked her to see Iwona Johnson. Patient needs a laser consult. Kerry Kahn - 01/18/2021 4:59 PM CDT Gianna- Would you confirm that this is a Cosmetic Consult referral and not a Gen Derm request. The patient seemed to think it was Gen Derm due to the fact her lesion was bleeding. Dr. Mccray said she could remove it but not without leaving a scar and the patient should have Dr. Johnson remove it. documented in this encounter Plan of Treatment Upcoming Encounters Date Type Specialty Care Team Description 05/18/2022 Appointment Rheumatology Erasmo Horn MD [address] [facility] [place] [id number] (Wo rk) documented as of this encounter Visit Diagnoses Not on filedocumented in this encounter Care Teams Geophysical Laboratory Director Relationship Specialty Start Date End Date Liana Tovar MD PCP - General 03/08/15 [address] [place] [id number] documented as of this encounter
--- OUTSIDE RECORDS SUMMARY | 2022-05-17 08:29 | XMS_ITS | Encounter Summary ---
:1985 Author Organization [employer] Address [address] [place] [address] Care Team Providers Name Role Phone Manjit Tovar MD Primary Care Provider Reason for Visit Reason Comments Spot, Skin left cheek Encounter Details Date Type Department Care Team Description 02/14/2021 Office Visit Crista Ramsay MD (Primary Dx) [address] [place] [address] [address] [facility] [place] [address] [place], [place] [phone] Social History Tobacco Use Types Packs/Day Years [...] as of this encounter Patient Instructions Patient InstructionsNannette Walsl RN - 02/14/2021 2:00 PM CDT PULSED DYE LASER INFORMATION Purpose and Treatment The pulsed dye laser is a device that produces an intense but gentle burst of light that treats the telangiectasias (abnormal blood vessels), spider veins or other cutaneous vascular lesions (blood vessel lesions of the skin) with minimal damage to the surrounding tissue. It is the most common type oflaser used for these conditions. It can also be used to treat angiomas (benign blood vessel growths), warts, scars, stretch sanchez, sun spots and freckles, and other various conditions with variable results. The pulsed dye laser precisely targets the red hemoglobin that is in the blood vessels. The laser beam passes through the skin and causes blood in the vessels to heat up, causing the vessels to close down. A cold material called cryogen is sprayed onto the skin just before each laser pulse to help protect the skin from burning or scarring as well as make it hurt less. Laser is considered a treatment, not a cure. Lesions may not resolve with only one session. Expect that multiple treatments will be needed. Some lesions can recur and you could develop new ones. Some lesions are just resistant to treatment and may not respond to laser. Laser treatment does not prevent future lesions or blood vessels from developing and the treatment can be repeated in the future if needed. Sometimes a preliminary test is done on an area of skin to see how it responds to treatment. Beforethe procedure, wash your face if necessary to remove make-up or topical medications. It is better tocome in without any makeup, sunscreen, or topical medication in the area to be treated. Avoid sun exposure as a tanned or sunburned area may not be possible to be treated. During the laser procedure, you as well as the others in the room will wear eye protection (specialgoggles or eye pads). For wart treatment, masks and a suction-vacuum device may be used. The laser procedure can be somewhat painful. It feels like a flick of a rubber band, but is very, very quick (each ???zap?? is only milliseconds long) The treated area usually swells immediately after the laser treatment. Mild laser treatment may cause only mild redness and swelling. Stronger treatments may result in more pronounced swelling. Dark purplish bruising can sometimes occur and this fades in 1-2 weeks. Treatment around the forehead, cheeks and eyes may cause the eyelids to swell, even to swell shut. This can last from a couple days up to about a week. Risks and Complications ??? These are uncommon, but permanent hypopigmentation (lightening of the skin) and hyperpigmentation (darkening of the skin), infections and scarring can occur. ??? Depending on the size and color of the lesion being treated, complete clearing may not be possible or may take multiple treatments for the best results. ??? Immediately following the laser treatment the treated area may appear red for up to a day or so. ??? Occasionally a bruise (called purpura) may occur, and usually resolves in 7- 14 days, or rarely longer. ??? Occasionally blistering may occur, and if it does we recommend you keep the area clean gently with soap and water, pat dry, and apply vasoline petroleum jelly daily and you should also let your doctor know. ??? Swelling is common, especially when larger areas are treated, and it may last for a couple days,up to a week, or rarely longer. ??? Improper care of the treated areas may increase the chance of scarring, continued pigment discoloration or skin textural changes to the treated areas. ??? All potential complications may not be known at this time. Alternatives Other methods of treating these lesions, include as sclerotherapy for leg veins, electrocautery for facial veins, or other therapy for vascular lesions. Precautions to take before your laser treatment 1. You must not be antonio! 2. Do not use self tanning cream to the areas to be treated for 3-4 weeks before your treatment. 3. Avoid aspirin and fish oil for 2 weeks prior to the treatment and avoid Advil, ibuprofen, Aleve, Naproxen or other NSAIDS for 1 week prior, if able. Precautions to take following your laser treatment 1. Apply a broad spectrum sunscreen of SPF 30 or higher every day to decrease the possibility of pigmentation changes. Avoid exposure to the sun. If sun exposure is expected, cover the area as much as possible. If the lesion has a scab or tissue changes, cover the area with a dressing while exposed tothe sun. 2. Do not rub, scratch, pick or scrub at the treated area for several days after the procedure or until any swelling, bruising, or pink/red discoloration has resolved. Treat the area gently for 2-3 weeks after your procedure. 3. Avoid rubbing or pressure (caused by clothing) on the treated areas. A dressing should be appliedto the treated area if needed to prevent this. 4. Do not take hot baths, use saunas, or hot tubs, or do activities that cause increased body temperature for 24 hours after your laser treatment. 5. Avoid strenuous exercise and drinking alcohol for 24 hours after your laser procedure. 6. If the area becomes tender, reddened or shows signs of infection, please call the office immediately. 7. If you get the sensation of a cold sore beginning to develop, begin taking your usual antiviralcold sore medicine for this and call our office. 8. Sleeping with your head elevated on 2 pillows the first night can be of some potential benefit todecrease the amount of facial swelling when large areas of the face are treated. Care of the treated area: 1. If there is no scabbing, a moisturizer can be used daily. It is important to keep the area moist until healed. 2. Showers are fine, but gently pat the area dry. Do not rub with a towel or washcloth as the area is very delicate while any swelling or bruising/red discoloration is present. 3. Any discomfort you may have (usually not lasting more than a few hours) can be relieved with Tylenol/acetaminophen, Ibuprofen or the application of ice packs for 5-10 minutes intermittently. 4. After the red discoloration disappears, hyperpigmentation (brown coloring) or hypopigmentation (white) may be present for up to 3-5 months, sometimes longer. This is rare but if it occurs, always use a broad spectrum sunscreen (SPF 30 or higher) on the area until the normal color returns. You should also notify your physician. 5. Call our office at [phone] if any questions or concerns arise. Pulsed Dye Laser Information Purpose and Treatment The pulsed dye laser is a device that produces an intense but gentle burst of light that treats the telangiectasias (abnormal blood vessels), spider veins or other cutaneous vascular lesions (blood vessel lesions of the skin) with minimal damage to the surrounding tissue. It is the most common type oflaser used for these conditions. It can also be used to treat angiomas (benign blood vessel growths), warts, scars, stretch sanchez, sun spots and freckles,and other various conditions with variable results. Laser is considered a treatment, not a cure. Lesions may not resolve with only one session. Expect that multiple treatments will be needed. Some lesions can recur and you could develop new ones. Some lesions are just resistant to treatment and may not respond to laser. Laser treatment does not preventfuture lesions or blood vessels from developing and the treatment can be repeated in the future if needed. Sometimes a preliminary test is done on an area of skin to see how it responds to treatment. Before the procedure, wash your face if necessary to remove make- up or topical medications. It is better to come in without any makeup, sunscreen, or topical medication in the area to be treated. Avoid sun exposure as a tanned or sunburned area may not be possible to be treated. During the laser procedure, you as well as the others in the room will wear eye protection (special goggles or eye pads). For wart treatment, masks and a suction-vacuum device may be used. The laser procedure can be somewhat painful. It feels like a flick of a rubber band, but is very, very quick (each ???zap?? is only milliseconds long) The treated area usually swells immediately after the laser treatment. Mild laser treatment may cause only mild redness and swelling. Stronger treatments may result in more pronounced swelling. Dark purplish bruising can sometimes occur and this fades in 1-2 weeks. Treatment around the forehead, cheeks and eyes may cause the eyelids to swell, even to swell shut. This can last from a couple days up toabout a week. Risks and Complications These are uncommon, but permanent hypopigmentation (lightening of the skin) and hyperpigmentation (darkening of the skin),infections and scarring can occur. Depending on the size and color of the lesion being treated, complete clearing may not be possible or may take multiple treatments for the best results. Immediately following the laser treatment the treated area may appear red for up to a day or so. Occasionally a bruise (called purpura) may occur, and usually resolves in 7-14 days, or rarely longer. Occasionally blistering may occur, and if it does we recommend you keep it clean gently with soap and water, pat dry, and apply vasoline daily and you should let your doctor know. Swelling is common, especially when larger areas are treated, and it may last for a couple days,up to a week, or rarely longer. Improper care of the treated areas may increase the chance of scarring, continued pigment discoloration or skin textural changes to the treated areas. All potential complications may not be known at this time. Alternatives Other methods of treating these lesions, include as sclerotherapy for leg veins, electrocautery for facial veins, or other therapy for vascular lesions. documented in this encounter Progress Notes Nannette Walls RN - 02/14/2021 2:00 PM CDT Images from the original note were not included. Crista Johnson MD - 02/14/2021 12:00 AM CDT NAME: MANJIT JUAREZ CSN: [id number] CLINIC NOTE DATE OF SERVICE: 02/14/2021 : 1985 SUBJECTIVE: Ms. Juraez is a 35-year-old female who is referred here today by Dr. Delfina Knox for evaluation and treatment of a bleeding lesion at the left cheek. Ms. Juarez shares that this lesion has been a problem since the fall. She notes that it will start to bleed spontaneously.She has noticed that first the lesion swells up, and then it bleeds. If she covers it with the Band-Aid, the bleeding is better, but as soon as she takes the Band-Aid off, if there has been bleeding, it will then bleed steadily for 2 days. It is not bleeding today. OBJECTIVE: GENERAL: A well-developed, well-nourished, very pleasant, fair-skinned female who is appropriately groomed and oriented. She does not appear antonio. HEENT: At the left upper cheek, there is a 3 mm, roberto-red, smooth-surfaced, fairly round papule with no active bleeding at this time. ASSESSMENT: Favor roberto angioma, although hemangioma in a deeper component is considered based on history. It has been highly problematic, with frequent bleeding. PLAN: Option of pulsed dye laser discussed in detail with potential risks and benefits, including but not limited to the risk of scarring and pigmentation changes after the laser. We have also discussed that this lesion might not resolve with the pulsed dye laser treatment. I do think it is worth trying this to see if it will result in improvement. If it improves but is not yet resolved, could treat again after 3 weeks or so. If it does resolve, there is a chance it could recur. If it does not resolve, may need alternative therapy, all of which we discussed. The importance of not being antonio and alsometiculous sun protection after laser discussed. Printed information regarding pulsed dye laser given. She would like to proceed with this today. PROCEDURE NOTE: Verbal informed consent obtained. Alcohol prep which was allowed to dry thoroughly. See laser treatment procedure note in the media section of [employer]. There were no complications. Recheckp.r.n. CRISTA JOHNSON MD RU/AQS /[id number] cc: [place] [id number] [address] [place] [id number] documented in this encounter Plan of Treatment Upcoming Encounters Date Type Specialty Care Team Description 05/18/2022 Appointment Rheumatology Erasmo Horn MD [address] [address] [id number] (Wo rk) documented as of this encounter Visit Diagnoses Diagnosis Roberto angioma - Primary Nevus, non-neoplastic documented in this encounter Care Teams Janitor Helper Relationship Specialty Start Date End Date Manjit Tovar MD PCP - General 03/08/15 [address] [place] [address] documented as of this encounter
--- OUTSIDE RECORDS SUMMARY | 2022-05-17 08:29 | XMS_ITS | Encounter Summary ---
:1985 Author Organization [facility] Address [address] [place] [address] Care Team Providers Name Role Phone Liana Tovar MD Primary Care Provider Reason for Visit Reason Comments Skin Check Encounter Details Date Type Department Care Team Description 09/04/2017 Office Visit Delfina Orta, Swapna riddle skin (Primary Dx); Dermatology MD Skin exam for malignant neoplasm; [address] [address] [place] Personal history of malignant melanoma o f skin; [place] [address] [place], [place] History of dysplastic nevus; [phone] [id number] Neoplasm of skin [phone] (Wo rk) Social History Tobacco Use Types [...] as of this encounter Patient Instructions Patient InstructionsJeny HernandezITA - 09/04/2017 9:45 AM CST 1. Clothing and shade are the best for sun protection. 2. Use sunscreen with zinc in it. See below for Dr. Mccray's sunscreen recommendations. Care Instructions after a Skin Biopsy/Surgery When do I start changing the bandage on my skin biopsy/surgery site? Leave the original bandage/dressing in place for 24 to 48 hours. If you develop bleeding from the site, apply firm pressure directly over the bandage, using the heelof your hand, for [address] bandage on top of the first one - don???t keep removing and replacing dressings. NO PEEKING! Notify us if the bleeding still does not stop. Pain Control: Can ice over the bandage for 20 minutes on, 20 minutes off and rotate on this icing schedule as longas you need. How do I change the bandage on my skin biopsy/surgery site? After the initial 24 to 48 hours, clean the area every day with soap and warm water. Can let the shower water run over the incision. Gently pat dry the area. If you have stitches, use a cotton-tipped applicator to gently remove any crust or scab that has formed. After the area has been cleaned and is dry, apply a small amount of petroleum jelly or Aquaphor healing ointment and apply a new bandage. We prefer that you do not use an antibacterial ointment (i.e. bacitracin, Neosporin) as many people develop a hypersensitivity including a rash and even blistering related to these. Is it okay to shower after having a skin biopsy/surgery? Showering is okay, but please do not soak in a bathtub, hot tub, or pool. This will slow the healingprocess and may create infection. When can I stop bandaging my skin biopsy/surgery site? Continue the wound care process until the area is healed or until stitches are removed. Complete healing usually takes 2-4 weeks. *Can discontinue band- aid/bandage use after one week if wound is dry and healing well, but continue vaseline use until wound is healed or sutures are removed. Wounds heal best when kept moist, try not to let the area dry out. Letting them open to air, drying out, and having a scab form actually causes wounds to take longer to heal. If your skin is getting sensitive to the bandage, use gauze and paper tape. Can I exercise after having a skin biopsy/surgery? Avoid exercising for 2 days and if you have stitches, you will want to restrict your physical activity to avoid strenuous movements that will cause stretching and pulling of the skin for 2 weeks. What signs or symptoms should I call the dermatology department about? Infection after a biopsy or surgery is not likely, but can occur. Mild amounts of redness, bruising,swelling, discomfort and a clear to yellowish to blood- tinged discharge are normal. Signs of Infection include: fever, increasing pain, blood blister, drainage of pus, and extreme heatfrom the site. Please call the clinic at [phone] if you experience any of these symptoms. When should my sutures be removed? Please schedule your nurse appointment at the front maker lockstitch for the suture removal within 10-14 days. When will I receive my skin biopsy results? Your skin biopsy specimen will be sent to our laboratory for processing. It will then be interpretedby one of our four board-certified dermatopathologists, Dr. Tarun Clark, Dr. Nash Omalley, Dr. Ashleigh Machado, and Dr. Augustin Phan. The dermatopathologists will write their findings in a pathology report. Your provider will then contact you with the results of this pathology report when it is available. Typically you will be contacted 7 to 14 days after your biopsy or procedure. Our pathology services will be listed separately on your bill. If you have further questions about the biopsy process or if you have not received your biopsy results within 2 weeks, please call us at [phone]. DIRECT PHONE NUMBER: TIMMY [phone]. FEEL FREE TO CALL WITH ANY QUESTIONS OR CONCERNSYOU MAY HAVE. MOLES TO HAVE CHECKED IN CLINIC: BLACK, BISHOP OR BROWN IN THE CENTER WITH A RED OR COPPER TONE COLORING AROUND IT. ANY MOLES THAT CHANGE OR DOUBLE IN SIZE. SUNSCREEN: PREFER CLOTHING OVER SUNSCREEN. WHEN USING SUNSCREEN, PREFER SUNSCREEN THAT ARE ZINC BASED AND ARE AT LEAST 5% ZINC. * FOR EXAMPLE: VANICREAM SPF 30 OR 50, NEUTROGENA SENSITIVE SKIN, CITY BLOCK BY CELY SCHMIDT, BLUE LIZARD FOR SENSITIVE SKIN, BULLFROG SUNSCREEN AND TERRASPORT OR AQUASPORT WHICH ARE AVAILABLE AT [employer]. ENVIRONMENTAL WORKING GROUP: [email or web address] THIS WILL LIST SUNSCREENS WITH LESS CHEMICALS IN IT VITAMIN D-3 RECOMMENDATIONS: - TAKE VITAMIN D WITH FOOD THAT HAS FAT IN IT THIS HELPS THE BODY ABSORB IT. - PREFER YOU TAKE IT YEAR ROUND. - CAN ADD UP YOUR VITAMIN D-3 INTAKE FOR THE WEEK AND TAKE IT ALL AT ONCE INSTEAD OF DAILY IF YOU ARE NOT GOOD AT REMEMBERING TO TAKE IT. - PREFER GEL CAPSULES OVER SOLID TABLETS. THIS IS AVAILABLE OVER THE COUNTER. - VITAMIN D HAS BEEN SHOWN TO FIGHT CERTAIN CANCERS, IT'S A NATURAL MOOD BOOSTER, NATURAL IMMUNITY BOOSTER, NATURAL ANTI-INFLAMMATORY AND GOOD FOR YOUR MUSCLES, BONES AND BRAIN HEALTH. RECOMMENDED LOTIONS: *LOTIONS THAT CONTAIN CERAMIDES. THESE ARE VERY HEALING FOR THE SKIN. *FOR EXAMPLE, CERA VE LOTION, EUCERIN PROFESSIONAL REPAIR, EUCERIN ECZEMA RELIEF, EUCERIN SMOOTHING ESSENTIALS, GOLD MCKEON ECZEMA CARE AND CUREL LOTION. *BEST TO APPLY THESE RIGHT AFTER A SHOWER OR BATH IN ADDITION TO YOUR DAILY USE Thank you for choosing Dermatology at [facility]! We welcome your feedback. Comment cards are located in our lobby. For questions, please call and choose one of the following options: - for appointments and scheduling, press 1 - to speak with a nurse about a medical question from 7:30 am to 5 pm, press 2 - after hours emergencies, follow the instructions to be transferred to the contour sander provider For medication refills, please contact your pharmacy. For questions regarding billing, please contact [facility] at . Please consider enrolling in [employer]. Please follow the instructions below to securely access your online medical record. [employer] allows you to send messages to your doctor, view your test results, renew your prescriptions, schedule appointments, and more. How Do I Sign Up? 1. In your Internet browser, go to: [email or web address] 2. Click on the Enter Activation Code link under the New User? section. You will see the New Member Sign Up page. 3. Enter your [employer] Activation Code exactly as it appears below. You will not need to use this code after you???ve completed the sign-up process. If you do not sign up before the expiration date, youmust request a new code. [place] [employer] Activation Code: Activation code not generated Current [employer] Status: Active 4. Enter the last four digits of your Social Security Number ([id number]) and Date of (mm/dd/yyyy) as indicated and click Next. You will be taken to the next sign-up page. 5. Create a [employer] ID. This will be your [employer] login ID and cannot be changed, so think of one that is secure and easy to remember. 6. Create a [employer] password. You can change your password at any time. 7. Enter your Security Question and Answer. This can be used at a later time if you forget your password. Click Next. 8. Enter your e-mail address. You will receive e-mail notification when new information is availablein [employer]. 9. Click Sign In. You can now view your medical record. Additional Information If you have questions, you can call [phone] to talk to our [employer] staff. Remember, [employer] is NOT to be used for urgent needs. For medical emergencies, dial 911. TING MACHINE FIXER documented in this encounter Progress Notes Delfina Knox MD - 09/04/2017 10:03 AM CST NAME: LIANA ABURTO MR#: [id number] CSN: [id number] AUTHENTICATING CLINICIAN: Delfina Knox MD CONFIRM #: [id number] LOC: 527 CLINIC PROGRESS NOTE DATE OF VISIT: 09/04/2017 : 1985 SUBJECTIVE: Liana is a 31-year-old new mom of 3-1/2-month-old Ros history of a melanoma left breast 0.39 mm in depth 2008, history of a thin melanoma left anterior leg 2000 0.19 mm in depth, history of severelydysplastic nevus left forehead and a Spitz nevus behind the left knee. She has a mole I am followingon the 2nd toe on the right foot that is very dark, a little bit elevated, but it has been stable for years. She has had Spitzoid nevi. She has had keloids in the axilla. I do not know why, but that has calmed down since she has delivered. She has a mole on the right neck we follow. OBJECTIVE: Full-body exam including scalp, face, neck, chest, back, abdomen, buttocks, groin, arms, legs, hands, feet, nails, perirectal and pubic area. Scalp is clear. A few new sherman hemangiomas. Face looks good. The right neck is a skin- colored to slightly pink papule capped by a dark brown nevus and under the dermatoscope, it actually looks like it is 2 moles sitting side by side, but it is hard to follow and the darker component has gotten larger, so we are going to remove it. She has a mole on the rightanterior thigh that is medium brown, round and looks stable and then on the left anterior leg where she has her scar she has a small freckle mole lateral to the scar on the superior position and below that is a purple hemangioma. I photographed just so we can follow. Her other scars are well healed with no sign of recurrence. No lymphadenopathy in the neck, supraclavicular, infraclavicular, axillary,nor groin region. ASSESSMENT: History of melanoma with atypical mole, possible run on lesion on the right neck. PLAN: Right neck. Informed consent was obtained. 1% lidocaine with epi at 1:100,000, sterilely prepped anddraped. A 6 mm plug removed it completely. Two 6-0 Ethilon stitches placed. Wound care instructions given verbally. Will follow the mole on the right thigh, left thigh near the scar and the 2nd toe on the right foot. Everything else looks great. I will see her back in 6 months, sooner if there are questions or concerns. I usually do a longer appointment, but we are getting to the point where we probably will not need that any further. 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 ?Comment: The clinical photograph in the electronic medical record ?has been reviewed. Pt informed on voicemail- if color returns we can re-address it. It was mild and I feel comfortable following the site. Phone number left to call me back for any concerns or questions.m VLV:MEDQ C: CONFIRM #: [id number] TING MACHINE FIXER Jeny Hernandez LPN - 09/04/2017 9:45 AM CST Images from the original note were not included. Left Anterior Leg- old melanoma scar w/ freckle and tiny blood vessel Right neck- biopsy TING MACHINE FIXER documented in this encounter Plan of Treatment Upcoming Encounters Date Type Specialty Care Team Description 05/18/2022 Appointment Rheumatology Erasmo Horn MD [address] [facility] [place] [id number] (Wo rk) documented as of this encounter Procedures Procedure Name Priority Date/Time Associated Comments Diagnosis DERMATOLOGY TISSUE Routine 09/04/2017 10:39 Neoplasm of skin R esults for this TRACKING TEST AM KNITTING MACHINE FIXER procedure are in the results section. SURGICAL BYRON ESCOBAR Routine 09/04/2017 6:00 AM Re sults for this NICOLLET KNITTING MACHINE FIXER procedure are i n the results section. documented in this encounter Results Dermatology Tissue Tracking Test (09/04/2017 10:39 AM KNITTING MACHINE FIXER) [facility] Method Time Signature Dermatology Collected PN SOFT Specimen Status Specimen (Source) Anatomical Collection Method Collection Time Re ceived Time Location / / Volume Laterality 09/04/2017 10:39 AM KNITTING MACHINE FIXER Delfina Knox MD LAB_1 Performing Organization Address City/State/ZIP Code Phon e Number [facility] [address] [place] [address] Pathology Report (09/04/2017 6:00 AM KNITTING MACHINE FIXER) [facility] gist Method Time Signature Path: FINAL DERMATOPATHOLOGY REPORT [facility] Pathology #: [id number] ? Date Obtained: 09/04/2017 ?Date Received: 09/05/2017 DIAGNOSIS: ?Skin, right neck, punch biopsy: ?- Compound nevus with mild junctional atypia and co ngenital ?features, extending to the peripheral edges of the biopsy, see ?comment. ?Comment: The clinical photograph in the electronic medical record ?has been reviewed. ? Trevin ARAIZA ? (electronic signatur e) ? 09/07/2017 ??11:2 7 CLINICAL NOTES: ?Pertinent Clinical Hx/Evaluate for?->Rule out dys plastic ?nevus ORGAN/TISSUE SITE: ?R neck GROSS DESCRIPTION: ?Received in a formalin-filled container labeled wit h the ?patient's name is a 5 x 5 x 4 mm punch biopsy of sk in. ??The ?specimen is marked with green ink, bisected and sub mitted ?entirely in one cassette. ?da ? BLOJE MICROSCOPIC DESCRIPTION: ?Microscopic examination performed. Technical component performed at: [facility], [address] [place], [place] [address] Professional component performed at: [facility], [address] [place] [address] Specimen Anatomical Collection Method Collection Time Receive d Time (Source) Location / / Volume Laterality SKIN PUNCH BIOPSY 09/04/2017 6:00 AM 04/2018 6:00 SPECIMEN / Unknown KNITTING MACHINE FIXER AM KNITTING MACHINE FIXER Delfina Knox MD LAB_1 Performing Organization Address City/State/ZIP Code Phon e Number [facility] [address] [place] [address] [phone] documented in this encounter Visit Diagnoses Diagnosis Sun-damaged skin - Primary 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
--- OUTSIDE RECORDS SUMMARY | 2022-05-17 08:29 | XMS_ITS | Encounter Summary ---
:1985 Author Organization [employer] Address [address] [place] [address] Care Team Providers Name Role Phone Liana Tovar MD Primary Care Provider Reason for Visit Reason Comments Skin Check Encounter Details Date Type Department Care Team Description 07/23/2019 Office Visit Delfina Orta, Swapna riddle skin (Primary Dx); Dermatology Seborrheic keratosis; [address] [address] [place] Skin exam for malignant neoplasm; [place] [address] [place], [place] Personal history of malignan t melanoma of skin; [phone] [id number] History of dysplastic nevus; [phone] (Wo rk) Irritable bowel syndrome, unspecified ty pe Social History Tobacco Use Types Packs/Day Years [...] as of this encounter Patient Instructions Patient InstructionsIwona Suarez RN - 07/23/2019 11:15 AM CST 1. Clothing and shade are the best for sun protection. 2. Use sunblock with zinc in it. See below for Dr. Urbano's sunblock recommendations. 3. For the rash on the corner of your mouth: Do not scrub the skin. Make sure to moisturizer the area at least daily preferably more often. Good moisturizer: Eucerin Advanced healing Use Sulfate Free Toothpaste. Try to avoid getting toothpaste on skin. Try a nickel free diet. See pamphlet. Try to not go over 10 a day on the Low-Nickel Diet Scoring System. 4. LAB: * THERE ARE ORDERS IN YOUR CHART TO HAVE YOUR LABS CHECKED IN THE FUTURE DISCUSSED AT TODAY'S APPOINTMENT. * BE SURE TO ASK THE LAB TO RUN DR. URBANO'S BLOOD WORK ORDERS TOO IF YOU ARE ARE HAVING BLOOD WORKDRAWN FOR MORE THAN ONE PROVIDER AT A TIME. *RECOMMEND YOU MAKE A LAB APPOINTMENT PRIOR TO COMING IN. *LAB APPOINTMENT PHONE NUMBER IS [phone]. *YOUR LAB RESULTS WILL BE MAILED TO YOU INCLUDING DR. URBANO'S RECOMMENDATIONS. 5. Vitamin D: Take 5000 IU 2 times a week Or 10,000 IU once a week. DIRECT PHONE NUMBER: TIMMY [phone]. FEEL FREE TO CALL WITH ANY QUESTIONS OR CONCERNSYOU MAY HAVE. MOLES TO HAVE CHECKED IN CLINIC: BLACK, BISHOP OR BROWN IN THE CENTER WITH A RED OR COPPER TONE COLORING AROUND IT. ANY MOLES THAT CHANGE OR DOUBLE IN SIZE. SUNBLOCK: PREFER CLOTHING OVER SUNSCREEN. WHEN USING SUNSCREEN, PREFER SUNBLOCKS THAT ARE ZINC BASED AND ARE AT LEAST 5% ZINC. -DANNY SPF 30 OR 50 -CERAVE MINERAL SUNSCREEN -CELY AVAILABLE AT [employer] OR [employer] -BLUE LIZARD (FOR SENSITIVE SKIN OR BABY) -BULLFROG SUNSCREEN -TERRASPORT OR AQUASPORT WHICH ARE AVAILABLE AT [employer] OR ONLINE. -AVEENO MINERAL SUNSCREEN (AVAILABLE AT [employer]) *MORE ELEGANT SUNSCREENS WITH ZINC IN IT: -BABO SUNSCREEN (AVAILABLE AT [employer] OR ONLINE) -SEAN AVAILABLE AT [employer] -PACIFICA MINERAL SUNSCREEN AVAILABLE AT [employer] -ESPERANZA-POSAY ANTHELIOS 50 MINERAL ULTRA LIGHT ([employer] OR ONLINE) -JUICE BEAUTY SPF 30 TINTED MINERAL MOISTURIZER FOR FACE -JUICE BEAUTY SPORT SPF 30 SPORT SUNSCREEN -BEAUTY COUNTER ALL MINERAL SUNSCREEN STICK, LOTION OR SPRAY -BEAUTY COUNTER DEW SKIN MOISTURIZING COVERAGE FOR FACE -CLINIQUE CITY BLOCK SHEER SPF 25 (NOT CLINIQUE SUPER CITY BLOCK SPF 40) -MCKENNA HILTON WHICH IS AVAILABLE AT [employer] *Avoid sunscreens with oxybenzone, parsol 1789 (avobenzone) and octinoxate. ENVIRONMENTAL WORKING GROUP: [email or web address] THIS WILL LIST SUNSCREENS WITH LESS CHEMICALS IN IT THINK DIRTY SELENE THIS WILL LIST PRODUCTS WITH LESS CHEMICALS IN IT VITAMIN D-3 [...] ARE VERY HEALING FOR THE SKIN. *FOR EXAMPLE: -CERA VE CREAM -EUCERIN PROFESSIONAL REPAIR -EUCERIN ECZEMA RELIEF -EUCERIN SMOOTHING ESSENTIALS -GOLD MCKEON ECZEMA CARE *BEST TO APPLY THESE RIGHT AFTER A SHOWER OR BATH IN ADDITION TO YOUR DAILY USE ARED [employer] PRODUCTION TEAM MEMBER documented in this encounter Progress Notes Delfina Knox MD - 07/23/2019 12:00 PM CST NAME: LIANA JUAREZ MR#: [id number] CSN: [id number] AUTHENTICATING CLINICIAN: Delfina Knox MD CONFIRM #: [id number] LOC: 527 CLINIC PROGRESS NOTE DATE OF VISIT: 07/23/2019 : 1985 ENCOUNTER: [id number]. HISTORY: Liana is a 33-year-old here for full-body exam, mother of Ros, who is 2. History of melanoma, 2008, left breast 0.39 mm in depth, and a 2nd melanoma left anterior leg 2009 or 2010, 0.19 mm in depth,severely dysplastic nevus left forehead, Spitz nevus behind the left knee, rheumatoid arthritis since age 19. Rash is on the corner of the mouth, comes and goes about every other month, using clindamycin, as she has a metronidazole allergy. Using less toothpaste, but does not really clear. Does not use any mouthwash. Has been dairy-free for a long time, as she has a dairy sensitivity. She has been trying to be a little more gluten-free. Never has been diagnosed with Lyme disease. Does live down in [place]. Allergic to nickel, and I gave her the new nickel brochure that I made, and I want her to keep under 10 on a daily basis. She has some labial moles to follow. She has had dyshidrotic eczema, and that has been improved greatly off nickel and low wheat. She has had a problem with the left knee swelling to like a cantaloupe she says. 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 Wondering whatI think about those and melanoma increasing her risk at all. She has been on methotrexate in the past. She has been off that because I do feel like it may contribute to melanoma. OBJECTIVE: Full-body exam today, including scalp, face, neck, chest, back, abdomen, buttocks, groin, arms, legs, hands, feet, nails, perirectal, and pubic area. Fair skin, blonde hair, no antonio. Large scar over theleft breast that has healed well. Scar over the left forehead that is getting better and better in ap pearance. No sign of recurrent palpation. It is smooth. Very few nevi remaining on the back, a few on the arms and legs, mostly brown, some a little pink brown. One on the right thigh has like a littlepearl or cyst underneath it. It is still small and not worrisome. She has an area on the right arm Imentioned looked like a bruise. She said it has been the longer than several weeks, maybe even a month or 2. She does not remember having a lump underneath it. It is kind of yellow in appearance. Thereis no palpability, and I still think it is a bruise, and she may have had a hematoma under there. She has some new cherries on the flank, sherman hemangiomas. No suspicious nevi were seen. No lymphadenopathy in the neck, supraclavicular, infraclavicular, axillary, nor groin was seen. Left knee was not palpated, but it looks a little swollen, not red, today. ASSESSMENT: Rheumatoid arthritis with history of melanoma and severely dysplastic nevi. PLAN: After she left, I reviewed Xeljanz, Arava, and Cosentyx, and think Cosentyx, even though it is a shot and she hates needles, would be the safest to use in the least big gun. We did talk about autoimmune diet and gluten at length. It is very hard to quit completely. Cutting sugar out, fake foods, increasing fruits and vegetables I think would definitely be beneficial. Talked about wondering if they have ever removed fluid from the knee and cultured. I did a PCR for Lyme. She has never had a Lyme titer. I do not believe we talked about we could run that. I think she is running other blood work. No, we did not run that today. I do not think we ran any blood work. She is not on vitamin D, and I encouraged her strongly to do at least 2000 international units a day. That is according to labs we have run in the past. For the face, she has perioral dermatitis as well, and it is really low-grade, but I want to try off nickel and see if that helps. I want her to try Eucerin Advanced Healing like all the time, moisturize like crazy, and go to sulfate-free toothpaste and see if that helps. I will see her b ack twice a year indefinitely, sooner if there are questions or concerns. I spent 45 minutes with her. KALEB:JIMMIE C: CONFIRM #: [id number] [employer] PRODUCTION TEAM MEMBER Delfina Knox MD - 07/23/2019 11:15 AM CST See dictation [employer] PRODUCTION TEAM MEMBER documented in this encounter Plan of Treatment Upcoming Encounters Date Type Specialty Care Team Description 05/18/2022 Appointment Rheumatology Erasmo Horn MD [address] [facility] [place] [address] [address] (Wo rk) documented as of this encounter Results Tissue Transglutaminase Ab IgA (07/23/2019 12:26 PM PREPARED FOODS PRODUCTION TEAM MEMBER) [facility] [employer] [facility] Method Time Signature Tissue <1.0 0.0 - 6.9 07/25/2019 [facility] Transglutaminase U/mL 12:12 PM [facility]AL LAB Antibody, IgA PRE[employer] PRODUCTION TEAM MEMBER Tissue Negative Negative 07/25/2019 [facility] Transglutaminase 12:12 PM CENTRAL LAB Antibody, IgA PRE[employer] PRODUCTION TEAM MEMBER Interpretation Specimen Anatomical Collection Method / Collection Time Recei jules Time (Source) Location / Volume Laterality Blood Venipuncture / 07/23/2019 12:26 9 Unknown PM PRE[employer] PRODUCTION TEAM MEMBER 12:26 PM PREPARED FOODS PRODUCTION TEAM MEMBER Delfina Knox MD LAB_1 Performing Organization Address City/State/ZIP Code Phon e Number [facility] [address] [address] Celiac Disease Reflex Panel IgA (07/23/2019 12:26 PM PREPARED FOODS PRODUCTION TEAM MEMBER) [facility] [employer] [facility] Method Time Signature IgA, Serum 84 65 - 421 07/28/2019 [facility] mg/dL 8:22 AM CENTRAL LAB PREPARED FOODS PRODUCTION TEAM MEMBER Tissue <1.0 0.0 - 6.9 07/28/2019 [facility] Transglutaminase U/mL 8:22 AM CENTRAL LAB Antibody, IgA [employer] PRODUCTION TEAM MEMBER Tissue Negative Negative 07/28/2019 [facility] Transglutaminase 8:22 AM CENTRAL LAB Antibody, IgA PREPARED [employer]S PRODUCTION TEAM MEMBER Interpretation Specimen Anatomical Collection Method / Collection Time Recei jules Time (Source) Location / Volume Laterality Blood Venipuncture / 07/23/2019 12:26 9 Unknown PM PREPARED FOODS PRODUCTION TEAM MEMBER 12:26 PM PREPARED FOODS PRODUCTION TEAM MEMBER Delfina Knox MD LAB_1 Performing Organization Address [facility] Phon e Number [facility] [address] [address] Gliadin (Deamidated) Antibodies IgG and IgA (07/23/2019 12:26 PM PREPARED FOODS PRODUCTION TEAM MEMBER) [facility] [employer] gist Method Time Signature Gliadin Antibody, <1.0 0.0 - 6.9 07/28/2019 [facility] IgA Result U/mL 8:22 AM CENTRAL LAB PREPARED FOODS PRODUCTION TEAM MEMBER Gliadin Antibody, Negative Negative 07/28/2019 [facility] IgA 8:22 AM CENTRAL LAB Interpretation PREPARED FOODS PRODUCTION TEAM MEMBER Gliadin Antibody, <1.0 0.0 - 6.9 07/28/2019 [facility] IgG U/mL 8:22 AM CENTRAL LAB PREPARED FO[employer] PRODUCTION TEAM MEMBER Gliadin Antibody Negative Negative 07/28/2019 [facility] IgG, 8:22 AM CENTRAL LAB Interpreation PREPARED FOODS PRODUCTION TEAM MEMBER Specimen Anatomical Collection Method / Collection Time Recei jules Time (Source) Location / Volume Laterality Blood Venipuncture / 07/23/2019 12:26 9 Unknown PM PREPARED [employer]S PRODUCTION TEAM MEMBER 12:26 PM PREPARED FOODS PRODUCTION TEAM MEMBER Delfina Knox MD LAB_1 Performing Organization Address [facility] Phon e Number 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
--- OUTSIDE RECORDS SUMMARY | 2022-05-17 08:29 | XMS_ITS | Encounter Summary ---
:1985 Author Organization [employer] Address [address] [place] [address] Care Team Providers Name Role Phone Liana Tovar MD Primary Care Provider Reason for Visit Reason Onset Date Comments RESULTS, TEST 09/07/2016 Encounter Details Date Type Department Care Team Description 09/07/2016 Telephone [facility] Lizz Sinha PA-C RESULTS, TEST [address] [facility] . [address] [place] [address] [place], [place] [address] (Wo rk) Social History Tobacco Use Types [...] documented as of this encounter Nursing Notes Maria De Jesus Gastelum RN - 09/07/2016 4:05 PM CST Pt informed. She also mentioned that she is returning the 24 holter today. She did not have a diary but did not really feel any significant palpitations she said. HOUSE WHEELER Lizz Sinha PA-C - 09/07/2016 2:03 PM CST Irma, Please also let her know that her labs yesterday were normal, thanks! Lab Results Component Value Date/Time THYROID STIMULATING HORMONE 3.67 09/06/2016 1112 Lab Results Component Value Date/Time POTASSIUM 4.2 09/06/2016 1112 Lab Results Component Value Date/Time MAGNESIUM 2.4 09/06/2016 1112 HOUSE WHEELER Maria De Jesus Gastelum RN - 09/07/2016 1:42 PM CST Message left for pt. to call me back . [phone] HOUSE WHEELER Lizz Sinha PA-C - 09/07/2016 1:15 PM CST Irma, Please let her know that her case was reviewed with Dr. Rosado, who agreed with stopping nifedipine and holding Toprol until she has the 24 hour holter monitor. If she develops significant palpitations okay to take metoprolol 25 mg PRN for symptom relief. However, it can contribute to bradycardia and so symptoms should be weighed against potential risk. The 24 hour holter off metoprolol willbe helpful to gauge how fast her heart is going, and if it is relatively stable would prefer that she stay off medications for symptoms that do not correlate with a significant arrhythmias. Thanks! HOUSE WHEELER documented in this encounter Plan of Treatment Upcoming Encounters Date Type Specialty Care Team Description 05/18/2022 Appointment Rheumatology Erasmo Horn MD [address] [place] [place] [address] [id number] (Wo rk) documented as of this encounter Visit Diagnoses Not on filedocumented in this encounter Care Teams Hospital Mortician Relationship Specialty Start Date End Date Liana Tovar MD PCP - General 03/08/[address] [place], [place] [phone] documented as of this encounter
--- OUTSIDE RECORDS SUMMARY | 2022-05-17 08:29 | XMS_ITS | Encounter Summary ---
:1985 Author Organization [employer] Address [address] [place] [address] Care Team Providers Name Role Phone Manjit Tovar MD Primary Care Provider Reason for Visit Reason Comments Palpitations Encounter Details Date Type Department Care Team Description 09/06/2016 Office Visit [facility] Lizz Sinha PA-C Palpitations (Primary [address] Dx) [facility] [place] [address] [phone] (Wo rk) Social History Tobacco Use Types [...] Sign Reading Time Taken Comments Blood Pressure 134/72 09/06/2016 9:21 AM LIGHTING TECHNICIAN Pulse 88 09/06/2016 9:21 AM LIGHTING TECHNICIAN Temperature - - Respiratory Rate - - Oxygen Saturation - - Inhaled Oxygen Concentration - - Weight 88 kg (194 lb) 09/06/2016 9:21 AM LIGHTING TECHNICIAN Height 154.9 cm (5' 1) 09/06/2016 9:21 AM LIGHTING TECHNICIAN Body Mass Index 36.66 09/06/2016 9:21 AM LIGHTING TECHNICIAN documented in this encounter Patient Instructions Patient InstructionsLizz Sinha PA-C - 09/06/2016 10:00 AM CST 1. Labs today. Phone follow up to review the results. 2. 24 hour holter monitor off metoprolol. 3. Stop nifedipine. 4. Will review alternative medications with Dr. Caraballo if the holter monitor shows heart rates that are too fast. TING TECHNICIAN documented in this encounter Progress Notes Lizz Sinha PA-C - 09/06/2016 1:45 PM CST NAME: MANJIT JUAREZ MR#: [id number] CSN: [id number] AUTHENTICATING CLINICIAN: KRYSTIAN Stephens CONFIRM #: [id number] LOC: 3205 CLINIC PROGRESS NOTE DATE OF VISIT: 09/06/2016 : 1985 CHIEF COMPLAINT: Palpitations. Ms. Juarez is a pleasant 30-year-old female who presents to the [facility] due tosymptoms of palpitations last night. She recently found out she is 4 weeks and was seen in primary care. They switched her from metoprolol 25 mg to nifedipine 30 mg daily. After her first doseshe experienced hot flashing in her neck and face, felt her heart was racing. Those symptoms have settled down overnight, although she did have some difficulty falling asleep. In the past, she was seenby Dr. Caraballo for these symptoms, had a 24- hour Holter monitor that did not show any significant tachyarrhythmias. They discussed increasing the metoprolol, which she is also using for migraine heada ches, to 50 mg daily. She had night terrors on the higher dose which improved when it was cut down to 25 mg daily. Unfortunately, her palpitations increased at that same time. She has completely avoided any caffeine containing foods or drinks, does not drink alcohol. She denies any other cardiac symptoms such as chest pain, dizziness, lightheadedness, shortness of breath, or lower extremity edema. MEDICATIONS: Reviewed and updated in [facility]. Cardiac medications include nifedipine 30 mg for 1 dose yesterday. Shecut down her metoprolol to 25 mg every other day and her last dose was yesterday. ADR/ALLERGIES: Reviewed and updated in [facility]. REVIEW OF SYSTEMS: A complete 12-point review of systems is obtained and is negative other than what is mentioned above. OBJECTIVE: VITAL SIGNS: Blood pressure is 134/72 in the right with a regular cuff. Heart rate is 86 in apical pulse and regular. Weight in the clinic is 194. GENERAL: Ms. Juarez is a pleasant female in no acute distress. Oriented x3 with normal affect. LUNGS: Clear to auscultation bilaterally. CARDIOVASCULAR: Regular rate and rhythm without murmur. No JVD or HJR at a 45- degree angle. ABDOMEN: Soft, nontender. No evidence of hepatomegaly. EXTREMITIES: No edema. Strong pedal pulses. EKG from today shows normal sinus rhythm with a heart rate of 85 beats per minute. QRS is 90. QTc is433. Holter monitor when she was on metoprolol 25 mg daily from September 06, 2016, shows sinus rhythm, sinus in bradycardia less than 1% and tachycardia 14%. Heart rates ranged from 56-125 beats per minute. Average heart rate was 86 beats per minute. One PAC and occasional mostly unifocal PVCs. She felt a big thump when she had PVCs. ASSESSMENT: Palpitations. She was reassured that her 24-hour Holter monitor did not show any worrisome arrhythmias. Premature ventricular contractions can be symptomatic but often do not prompt treatment unless they are causing more symptoms. We discussed that most of the medications we would use to suppress ectopy and palpitations are class C. We will need to weigh the risks and benefits of using these medications with potential harm to her . She will have labs today to include a TSH, magnesium, and potassium. If these are all normal, we will proceed with another 24-hour Holter monitor off any atrioventricular christie blocking agents. My hope is this will continue to show occasional premature ventricular contractions which do not need to be treated during . However, if she becomes more symptomatic, consideration could be made to adding a low-dose calcium channel leigh as she hadintolerable night terrors on higher doses of metoprolol. Her case will also be reviewed with Dr. Golden Caraballo who met her last year for similar symptoms. My total time spent with the patient was 25 minutes, with 15 minutes spent in counseling, reviewing recent medication changes, possible side effects, benefits, recent laboratory results, imaging studies. CC: KRYSTIAN CONWAY [address] [place] [address] GOLDEN CARABALLO MD [address] [place] [address] LJR:JIMMIE C: CONFIRM #: [id number] TING TECHNICIAN documented in this encounter Plan of Treatment Upcoming Encounters Date Type Specialty Care Team Description 05/18/2022 Appointment Rheumatology Erasmo Horn MD [address] [facility] N [address] (Wo rk) Scheduled Orders Name Type Priority Associated Diagnoses Order S chedule 24 Hour Holter Monitor EKG Routine Palpitations 1 Occ urrences starting 09/06/2016 unti l 09/06/2017 documented as of this encounter Results Potassium (09/06/2016 11:12 AM LIGHTING TECHNICIAN) P athologist Signature Potassium 4.2 3.5 - 5.2 PN SOFT mmol/L Specimen Anatomical Collection Method Collection Time Receive d Time (Source) Location / / Volume Laterality 09/06/2016 11:12 09/06/2016 2:42 AM LIGHTING TECHNICIAN PM LIGHTING TECHNICIAN Narrative PN SOFT - 09/06/2016 3:17 PM LIGHTING TECHNICIAN Performed at [facility], [address] [place] [address] CLIA number [id number] Lizz Sinha PA-C LAB_1 Performing Organization Address City/State/ZIP Code Phon e Number PN SOFT [address] [place] [address] [phone] Magnesium (09/06/2016 11:12 AM LIGHTING TECHNICIAN) P athologist Signature Magnesium 2.4 1.6 - 2.6 PN SOFT mg/dL Specimen Anatomical Collection Method Collection Time Receive d Time (Source) Location / / Volume Laterality 09/06/2016 11:12 09/06/2016 2:42 AM LIGHTING TECHNICIAN PM LIGHTING TECHNICIAN Narrative PN SOFT - 09/06/2016 3:17 PM LIGHTING TECHNICIAN Performed at [facility], [address] [place] [address] CLIA number [id number] Lizz Sinha PA-C LAB_1 Performing Organization Address City/State/ZIP Code Phon e Number PN [facility] [address] [place] [address] [phone] documented in this encounter Visit Diagnoses Diagnosis Palpitations - Primary Palpitations documented in this encounter Care Teams Tool Keeper Relationship Specialty Start Date End Date Manjit Tovar MD PCP - General 03/08/[address] [place] [id number] documented as of this encounter
--- OUTSIDE RECORDS SUMMARY | 2022-05-17 08:29 | XMS_ITS | Encounter Summary ---
:1985 Author Organization [employer] Address [address] [place] [address] Care Team Providers Name Role Phone Liana Tovar MD Primary Care Provider Encounter Details Date Type Department Care Team Description 08/29/2016 Lab Visit [facility] Encounter for long-term Hmall.ma (current) [place] [address] medications [phone] Social History Tobacco Use Types Packs/Day Years [...] Description 05/18/2022 Appointment Rheumatology Erasmo Horn MD [address] [address] (Wo rk) documented as of this encounter Procedures Procedure Name Priority Date/Time Associated Diagnosis Comme nts CREATININE / GFR Routine 08/29/2016 10:46 Encounter for Result s for this AM FIELD TALENT QUALIFICATION SPECIALIST long-term (current) procedur e are in use of medications the resul ts section. COMPLETE BLOOD Routine 08/29/2016 10:46 Encounter for Results for this COUNT-W/DIFF AM FIELD TALENT QUALIFICATION SPECIALIST long-term (current) procedur e are in use of medications the resul ts section. DIFFERENTIAL Routine 08/29/2016 10:46 Results for this AM FIELD TALENT QUALIFICATION SPECIALIST procedure are i n the results section. C-REACTIVE PROTEIN Routine 08/29/2016 10:46 Encounter for Resu lts for this AM FIELD TALENT QUALIFICATION SPECIALIST long-term (current) procedur e are in use of medications the resul ts section. ALT (SGPT) Routine 08/29/2016 10:46 Encounter for Results fo r this AM FIELD TALENT QUALIFICATION SPECIALIST long-term (current) procedur e are in use of medications the resul ts section. AST Routine 08/29/2016 10:46 Encounter for Results fo r this AM FIELD TALENT QUALIFICATION SPECIALIST long-term (current) procedur e are in use of medications the resul ts section. ALBUMIN Routine 08/29/2016 10:46 Encounter for Results fo r this AM FIELD TALENT QUALIFICATION SPECIALIST long-term (current) procedur e are in use of medications the resul ts section. CALL LIST QUESTIONS Routine 08/29/2016 10:42 Encounter for Res ults for this AM FIELD TALENT QUALIFICATION SPECIALIST long-term (current) procedur e are in use of medications the resul ts section. documented in this encounter Results Differential (08/29/2016 10:46 AM FIELD TALENT QUALIFICATION SPECIALIST) athologist Signature Absolute 4.1 1.8 - 8.0 PN SOFT Neutrophils k/cmm Absolute 1.6 1.1 - 4.0 PN SOFT Lymphocytes k/cmm Absolute 0.4 0.2 - 0.8 PN SOFT Monocytes k/cmm Absolute 0.0 0.0 - 0.5 PN SOFT Eosinophils k/cmm Absolute 0.0 0.0 - 0.2 PN SOFT Basophils k/cmm Immature 0.3 0.0 - 0.5 PN SOFT Granulocytes % Specimen Anatomical Collection Method Collection Time Receive d Time (Source) Location / / Volume Laterality 08/29/2016 10:46 08/29/2016 AM FIELD TALENT QUALIFICATION SPECIALIST 10:46 AM FIELD TALENT QUALIFICATION SPECIALIST Narrative PN SOFT - 08/29/2016 11:13 AM FIELD TALENT QUALIFICATION SPECIALIST Performed at [facility], [address] [place] [address] CLIA number [id number] .Results faxed to , 08/29/2016,11:18, by [facility] Mayela Bateman MD LAB_1 Performing Organization Address City/[facility]/ZIP Code Phon e Number PN SOFT [address] [place] [address] Alanine Aminotransferase - ALT (SGPT) (08/29/2016 10:46 AM FIELD TALENT QUALIFICATION SPECIALIST) [facility] Method Time Signature Alanine 13 9 - 55 PN SOFT Aminotransferase U/L Specimen Anatomical Collection Method Collection Time Receive d Time (Source) Location / / Volume Laterality 08/29/2016 10:46 08/29/2016 AM FIELD TALENT QUALIFICATION SPECIALIST 10:46 AM FIELD TALENT QUALIFICATION SPECIALIST Narrative PN SOFT - 08/29/2016 11:18 AM FIELD TALENT QUALIFICATION SPECIALIST Performed at [facility], [facility] [address] [place] [address] CLIA number [id number] .Results faxed to , 08/29/2016,11:18, by [employer] Don Barnard MD LAB_1 Performing Organization Address [facility]/ZIP [facility] Phon e Number PN SOFT [address] [place] [address] Aspartate Aminotransferase - AST (08/29/2016 10:46 AM FIELD TALENT QUALIFICATION SPECIALIST) [facility] Method Time Signature Aspartate 16 10 - 40 PN SOFT Aminotransferase U/L Specimen Anatomical Collection Method Collection Time Receive d Time (Source) Location / / Volume Laterality 08/29/2016 10:46 08/29/2016 AM FIELD TALENT QUALIFICATION SPECIALIST 10:46 AM FIELD TALENT QUALIFICATION SPECIALIST Narrative PN SOFT - 08/29/2016 11:18 AM FIELD TALENT QUALIFICATION SPECIALIST Performed at [facility], [facility] [address] [place] [address] CLIA number [id number] .Results faxed to [phone], 08/29/2016,11:18, by [employer] Don Barnard MD LAB_1 Performing Organization Address City/[facility]/ZIP Code Phon e Number PN SOFT [address] [place] [address] Creatinine / GFR (08/29/2016 10:46 AM FIELD TALENT QUALIFICATION SPECIALIST) athologist Signature Creatinine Serum 0.70 0.55 - PN SOFT 1.02 mg/dL Est GFR >60 >60 PN SOFT Am mL/min/1.7 3m2 Est GFR Non-Afr >60 >60 PN SOFT Am mL/min/1.7 3m2 Comment: Normal>60, moderate decrease 30 - 59, se ronaldo decrease 15 - 29, renal failure <15 mL/min/1.73 m2 NOTE: ??Choose the eGFR result above willard ropriate for the race of the patient. Specimen Anatomical Collection Method Collection Time Receive d Time (Source) Location / / Volume Laterality 08/29/2016 10:46 08/29/2016 AM FIELD TALENT QUALIFICATION SPECIALIST 10:46 AM FIELD TALENT QUALIFICATION SPECIALIST Narrative PN SOFT - 08/29/2016 11:18 AM FIELD TALENT QUALIFICATION SPECIALIST Performed at [facility], [address] [place] [address] CLIA number [id number] .Results faxed to , 08/29/2016,11:18, by [employer] Don Barnard MD LAB_1 Performing Organization Address City/[facility] Phon e Number PN SOFT [address] [place] [address] Albumin (08/29/2016 10:46 AM FIELD TALENT QUALIFICATION SPECIALIST) athologist Signature Albumin 3.8 3.4 - 5.0 PN SOFT g/dL Specimen Anatomical Collection Method Collection Time Receive d Time (Source) Location / / Volume Laterality 08/29/2016 10:46 08/29/2016 AM FIELD TALENT QUALIFICATION SPECIALIST 10:46 AM FIELD TALENT QUALIFICATION SPECIALIST Narrative PN SOFT - 08/29/2016 11:18 AM FIELD TALENT QUALIFICATION SPECIALIST Performed at [facility], [facility] [address] [place] [address] CLIA number [id number] .Results faxed to [phone], 08/29/2016,11:18, by [employer] Don Barnard MD LAB_1 Performing Organization Address City/[facility] Phon e Number PN SOFT [address] [place] [address] CBC - Complete Blood Count-W/Diff (08/29/2016 10:46 AM FIELD TALENT QUALIFICATION SPECIALIST) P athologist Signature White Blood Cell 6.1 3.8 - 11.0 PN SOFT Count k/cmm Red Blood Cell 4.56 3.70 - PN SOFT Count 5.20 m/cmm Hemoglobin 13.4 11.8 - PN SOFT 15.5 g/dL Hematocrit 40.9 35.0 - PN SOFT 46.0 % Mean Corpuscular 89.7 80.0 - PN SOFT Volume 100.0 fL RDW 13.1 11.0 - PN SOFT 15.0 % Platelet Count 231 140 - 450 PN SOFT k/cmm Specimen Anatomical Collection Method Collection Time Receive d Time (Source) Location / / Volume Laterality 08/29/2016 10:46 08/29/2016 AM FIELD TALENT QUALIFICATION SPECIALIST 10:46 AM FIELD TALENT QUALIFICATION SPECIALIST Narrative PN SOFT - 08/29/2016 11:13 AM FIELD TALENT QUALIFICATION SPECIALIST [place] [address] CLIA number [id number] .Results faxed to , 08/29/2016,11:18, by [employer] Don Barnard MD LAB_1 Performing Organization Address City/[facility] Phon e Number PN SOFT [address] [place] [address] (ABNORMAL) C-Reactive Protein (08/29/2016 10:46 AM FIELD TALENT QUALIFICATION SPECIALIST) athologist Signature CRP 1.0 (H) 0.0 - 0.5 PN SOFT mg/dL Specimen Anatomical Collection Method Collection Time Receive d Time (Source) Location / / Volume Laterality 08/29/2016 10:46 08/29/2016 AM FIELD TALENT QUALIFICATION SPECIALIST 10:46 AM FIELD TALENT QUALIFICATION SPECIALIST Narrative PN SOFT - 08/29/2016 11:18 AM FIELD TALENT QUALIFICATION SPECIALIST Performed at [place] [id number] CLIA number [id number] .Results faxed to , 08/29/2016,11:18, by [employer] Don Barnard MD LAB_1 Performing Organization Address City/[facility]/ZIP Code Phon e Number PN SOFT [address] [place] [address] Call List Questions (08/29/2016 10:42 AM FIELD TALENT QUALIFICATION SPECIALIST) athologist Signature Call Back Done MAMTA CORTNEY Documented Specimen Anatomical Collection Method Collection Time Receive d Time (Source) Location / / Volume Laterality 08/29/2016 10:42 08/29/2016 AM FIELD TALENT QUALIFICATION SPECIALIST 10:46 AM FIELD TALENT QUALIFICATION SPECIALIST Narrative PN SOFT - 08/29/2016 10:42 AM FIELD TALENT QUALIFICATION SPECIALIST Performed at [facility], [address] [place] [address] CLIA number [id number] .Results faxed to , 08/29/2016,11:18, by [facility] Don aBrnard MD LAB_1 Performing Organization Address City/State/ZIP Code Phon e Number MAMTA BARR [address] [place] [address] documented in this encounter Visit Diagnoses Diagnosis Encounter for long-term (current) use of medications Encounter for long-term (current) use of other medications documented in this encounter Care Teams Aircraft Power Plant Assembler Relationship Specialty Start Date End Date Liana Tovar MD PCP - General 03/08/[address] [place] [id number] documented as of this encounter
--- OUTSIDE RECORDS SUMMARY | 2022-05-17 08:29 | XMS_ITS | Encounter Summary ---
:1985 Author Organization [employer] Address [address] [place] [address] Care Team Providers Name Role Phone Liana Tovar MD Primary Care Provider Encounter Details Date Type Department Care Team Description 09/06/2016 Lab Visit [facility] Palpitations [address] [place] [address] Social History Tobacco Use Types Packs/Day Years [...] Description 05/18/2022 Appointment Rheumatology Erasmo Horn MD [address] [address] (Wo rk) documented as of this encounter Procedures Procedure Name Priority Date/Time Associated Diagnosis Comme nts THYROID STIMULATING Routine 09/06/2016 11:12 Resu lts for this HORMONE AM GREEN CHAIN OPERATOR procedure are i n the results section. MAGNESIUM Routine 09/06/2016 11:12 Palpitations Results for this AM GREEN CHAIN OPERATOR procedure are i n the results section. POTASSIUM Routine 09/06/2016 11:12 Palpitations Results for this AM GREEN CHAIN OPERATOR procedure are i n the results section. documented in this encounter Results Thyroid Stimulating Hormone (09/06/2016 11:12 AM GREEN CHAIN OPERATOR) athologist Signature Thyroid 3.67 0.20 - PN SOFT Stimulating 4.50 Hormone uIU/mL Specimen Anatomical Collection Method Collection Time Receive d Time (Source) Location / / Volume Laterality 09/06/2016 11:12 09/06/2016 4:00 AM GREEN CHAIN OPERATOR PM GREEN CHAIN OPERATOR Narrative PN SOFT - 09/06/2016 5:01 PM GREEN CHAIN [place]PER[place] [address] CLIA number [id number] Lizz Sinha PA-C LAB_1 Performing Organization Address City/[facility]/ZIP Code Phon e Number PN SOFT [address] [place] [address] Potassium (09/06/2016 11:12 AM GREEN CHAIN OPERATOR) athologist Signature Potassium 4.2 3.5 - 5.2 PN SOFT mmol/L Specimen Anatomical Collection Method Collection Time Receive d Time (Source) Location / / Volume Laterality 09/06/2016 11:12 09/06/2016 2:42 AM GREEN CHAIN OPERATOR PM GREEN CHAIN OPERATOR Narrative PN SOFT - 09/06/2016 3:17 PM GREEN CHAIN OPERATOR Performed at [facility], [address] [place] [address] CLIA number [id number] Lizz Sinha PA-C LAB_1 Performing Organization Address City/[facility] Phon e Number PN SOFT [address] [place] [address] Magnesium (09/06/2016 11:12 AM GREEN CHAIN OPERATOR) athologist Signature Magnesium 2.4 1.6 - 2.6 PN SOFT mg/dL Specimen Anatomical Collection Method Collection Time Receive d Time (Source) Location / / Volume Laterality 09/06/2016 11:12 09/06/2016 2:42 AM GREEN CHAIN OPERATOR PM GREEN CHAIN OPERATOR Narrative PN SOFT - 09/06/2016 3:17 PM GREEN CHAIN OPERATOR Performed at [facility], [address] [place] [address] CLIA number [id number] Lizz Sinha PA-C LAB_1 Performing Organization Address City/State/ZIP Code Phon e Number PN SOFT [address] [place] [address] [phone] documented in this encounter Visit Diagnoses Diagnosis Palpitations documented in this encounter Care Teams Nanotechnologist Relationship Specialty Start Date End Date Liana Tovar MD PCP - General 03/08/[address] [place] [id number] documented as of this encounter
--- OUTSIDE RECORDS SUMMARY | 2022-05-17 08:29 | XMS_ITS | Encounter Summary ---
:1985 Author Organization [employer] Address [address] [place] [address] Care Team Providers Name Role Phone Manjit Tovar MD Primary Care Provider Reason for Visit Reason Comments Skin Check Encounter Details Date Type Department Care Team Description 01/17/2021 Procedure Visit [facility] Delfina Knox MD Skin Check [address] [place] [address] [place] [address] [phone] (Wo rk) Social History Tobacco Use Types [...] documented as of this encounter Progress Notes Delfina Knox MD - 01/17/2021 12:00 AM CDT NAME: MANJIT JUAREZ [facility]: [id number] CLINIC NOTE DATE OF SERVICE: 01/17/2021 : 1985 Manjit is a 35-year-old here for full-body exam and for itchy armpits. She has had a melanoma left breast 0.39 mm in depth in 2008. She had a 2nd melanoma left anterior leg 2011 of 0.19 mm in depth, andshe has had a severely dysplastic nevus left forehead. She has had rheumatoid arthritis since age 19. 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 That is better. She has a spot on the left cheek. I recommended she see Iwona Johnson. Something happened with the scheduling. It did not get scheduled. She has had itchy armpits. We have talked about it. I had her do blow dry and antifungal cream. It does not help at all. She has bumps in the right axilla. She has little bumps on the neck that itch sometimes. She has a daughter, Ros, who has red bumps around her mouth. She has decreased how much toothpaste and makes sure that is wiped off, but it will not clear. Manjit has been using a little hydrocortisone in her armpits and today she does not have the rash. I have seen it before and it has oval pink patches that are faint. 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 She said that did not make any difference. EXAMINATION: Today, including scalp, face, neck, chest, back, abdomen, buttocks, groin, arms, legs, hands, feet, nails, perirectal and pubic area, kind of a flowery light brown mole on the low abdomen near the scar, not changed. Right lateral hip is her largest mole, medium brown, not worrisome. Mild anotnio over the arms and forearms, upper back and upper chest. Face is faint, is not tanned. Scar on the left eyebrow is well-healed. Scar on the left breast is well-healed. Scar on the leg is well-healed. Numerous other scars on the back. Not a lot of nevi remaining. In the right axilla, she has in the crease of the axilla 4 or 5 little inflammatory papules, maybe just milia, but need to rule out an elastosis. Left axilla is pretty clear. Neither has the dermatitis- type rash. She reports she is itchy around the neck. She wears a beautiful necklace with a small chain and she has a few tiny little seborrheic keratosis or skin tags. I can feel more than I can see. No rash at all. Genitalia, the left labia has a couple nevi and inner crease of the groin that are not worrisome at all. Left cheek, she has enlarged telangiectasia, more of a mat telangiectasia and it is compressible. Biopsy woulddefinitely leave a scar, so I recommended laser and I asked her to see Iwona Johnson. Perirectal is clear. Hands and feet looked fine. She did remark she has a new spot that came up on her hand. Her melanomas in the past were pink. The spot on the dorsum of the hand looks like a scar like it got scratched and it is healing. It is very banal, and then she has a little mildly inflammatory papule on the left finger to me that looks kind of like a little bite reaction. It certainly does not look worrisome for a mole. ASSESSMENT: Itching in the axilla with no rash today, but history of eczematous dermatitis, inflammatory bumps along the line and the right axilla, rule out milia versus an elastosis. History of melanoma. No active disease found and no lymphadenopathy found in the neck, supraclavicular, infraclavicular, axillary, nor groin. Daughter, Ros, is only 3. I hate to diagnose and treat without seeing her.So, I recommended lotioning the skin regularly after toothpaste and decreasing toothpaste amount, which she already is doing, and seeing her kiln worker or me for diagnosis. With Manjit's permission, 1% lidocaine with epinephrine at 1:100,000 was injected into the right axilla to take 1 of the little papules out, superficial shave biopsy to get a whole papule and then light cautery with Vaseline and Band-Aid applied. Switch to CeraVe soap from the [employer]. Go from deodorant/antiperspirant to just antiperspirant, and if we do not get anywhere, then we will consider patch testing with [facility] although it is not really allergic, it is more irritant, but anyway I am not sure where togo past there. I could try Cleocin lotion only, for anti- deodorant and no antiperspirant, and beforeI sent her off for patches. Either way, I will call her in a week with biopsy diagnosis and see how she is doing at that point. FINAL DIAGNOSIS A. Skin, Right Axilla, shave: - Granulomatous dermatitis, see comment. ?? COMMENT: The histologic findings include a mixed dermal inflammatory infiltrate with aggregates of multinucleate giant cells. The differential diagnosis includes sarcoidosis, a response to a ruptured follicle or other foreign body, and an occult infectious etiology. Gram, AFB, and PAS stains performedwith proper positive controls do not reveal evidence of a bacterial, mycobacterial, or fungal infection. A polarized light examination reveals no evidence of a birefringent foreign body. The multinucleate giant cells stain positive with CD68 and negative with S-100. Elastic tissue stain does not reveal evidence of fragmented elastic fibers within giant cells. Clinical correlation is advised. ?? Discussed with patient after reviewing the photo- it is in a areas that ingrown hairs could be causing a foreign body reaction- pt has no history of cough- we will try il steroid injections- she also has a bleeding telangiectasia on left cheek- laser not covered but we could numb and cauterize it- it may scar- will discuss at appointment- I did offer a cxr - she declined. Will see her 02/09 at 1145. MD SONNY RIDERV/VALES /[id number] documented in this encounter Plan of Treatment Upcoming Encounters Date Type Specialty Care Team Description 05/18/2022 Appointment Rheumatology Erasmo Horn MD [address] [facility] [address] (Wo rk) documented as of this encounter Procedures Procedure Name Priority Date/Time Associated Comments Diagnosis SKIN BIOPSY Routine 01/17/2021 9:57 AM Neoplasm of skin Resul ts for this CDT procedure are i n the results section. SURGICAL PATHOLOGY, Routine 01/17/2021 9:57 AM Neoplasm of ski n Results for this DERMATOLOGY CDT procedure are i n the results section. documented in this encounter Results Skin Biopsy (No CPT) (01/17/2021 9:57 AM CDT) Narrative EXTERNAL RESULTS - 01/17/2021 9:57 AM CD T Type of biopsy: tangential ?? Delfina Knox MD DERM PROCEDURE ORDERABLES Performing Organization Address City/State/ZIP Code Phon e Number EXTERNAL RESULTS Surgical Path, Dermatology (01/17/2021 9:57 AM CDT) Component Value Ref Test Analysis Performed At [facility] gist Range Method Time Signature Case Report Surgical Pathology Report ? Case: [id number] ? 01/26/2021 [facility] 3800 Authorizing Provider: ??Delfina Bowman MD ? Collected: ? 01/17/2021 0957 ? 2:21 PM DERMATO LOGY Ordering Location: ? [facility] Dermatology ? Received: ?01/18/2021 0845 ? CDT Pathologist: ? Elmo Phan MD ? Specimen: ?Skin, Right A xilla ? FINAL A. Skin, Right Axilla, shave: 01/26/2021 [facility] 3800 Electronically DIAGNOSIS - Granulomatous dermatitis, see comment. 2:21 PM DERMATOLOGY signed by KEVAN PhanT Elmo Sue MD on COMMENT: The histologic find ings include a mixed dermal inflammatory infiltrate with aggregates of multinucleate giant cells. The differential diagnosis includes sarcoidosis, a response to a ruptured fo 01/26/2021 at 2:21 llicle or other foreign body , and an occult infectious etiology. Gram, AFB, and PAS stains performed with proper positive controls do not reveal evidence of a bacterial, mycobacterial, or fungal infecti PM on. A polarized light examin ation reveals no evidence of a birefringent foreign body. The multinucleate giant cells stain positive with CD68 and negative with S-100. Elastic tissue stain does not reveal evidence of fragmented elas tic fibers within giant cells. Clinical correlation is advised. Clinical Differential Diagnosis: itchy papules? Elastosis vs milia 01/26/2021 [facility] 3800 Information 2:21 PM DERMATOLOGY CDT Microscopic Microscopic 01/26/2021 [facility] 3800 Description examination is 2:21 PM DERMATOLOGY performed. CDT Special Stains The stain controls have been reviewed and stain appr opriately. 01/26/2021 [facility] 3800 2:21 PM DERMATOLOGY CDT Gross A: 01/26/2021 [facility] 3800 Description Received in formalin, labele d with the patient's name and Skin, Right Axilla is a 3 x 2 x 1 mm shave biopsy of skin. The specimen is marked with green ink and submitted entirely in one cassette. CC 2:21 PM DERMATOLOGY CDT Embedded 01/26/2021 [facility] 3800 Images 2:21 PM DERMATOLOGY CDT Specimen Anatomical Collection Method Collection Time Receive d Time (Source) Location / / Volume Laterality Skin (Skin) 01/17/2021 9:57 AM 8:45 CDT AM CDT Comment: Differential Diagnosis: itchy p apules? Elastosis vs milia Delfina Knox MD LAB PATHOLOGY Performing Organization Address City/State/ZIP Code Phon e Number [facility] 3800 DERMATOLOGY [address] [place], [place] [address] documented in this encounter Visit Diagnoses Diagnosis [...] nature of bone, soft tissue, and skin Dysplastic nevi Benign neoplasm of skin, site unspecifie d Pruritus Unspecified pruritic disorder Rash Rash and other nonspecific skin eruption Telangiectasia Other and unspecified capillary diseases documented in this encounter Care Teams Nurse Unit Manager Relationship Specialty Start Date End Date Manjit Tovar MD PCP - General 03/08/[address] [place] [address] documented as of this encounter
--- OUTSIDE RECORDS SUMMARY | 2022-05-17 08:29 | XMS_ITS | Encounter Summary ---
:1985 Author Organization [employer] Address [address] [place] [address] Care Team Providers Name Role Phone Liana Tovar MD Primary Care Provider Encounter Details Date Type Department Care Team Description 08/29/2016 Notes/Orders Rowdy Galvez y Mayela Bateman A, [place] [address] [address] [employer] long-term (current) [place] [address] MELI Nieto use of medications [phone] SAIGE [address] (Primary Dx) [place] [id number] (Wo rk) Social History Tobacco Use Types [...] Description 05/18/2022 Appointment Rheumatology Erasmo Horn MD [address] [place] [address] (Wo rk) documented as of this encounter Visit Diagnoses Diagnosis Encounter for long-term (current) use of medications - Primary Encounter for long-term (current) use of other medications documented in this encounter Care Teams Hearing Care Professional Relationship Specialty Start Date End Date Liana Tovar MD PCP - General 03/08/15 [address] [place] [address] documented as of this encounter
--- OUTSIDE RECORDS SUMMARY | 2022-05-17 08:29 | XMS_ITS | Encounter Summary ---
:1985 Author Organization [employer] Address [address] [place] [address] Care Team Providers Name Role Phone Liana Tovar MD Primary Care Provider Reason for Visit Reason Comments Skin Check Encounter Details Date Type Department Care Team Description 03/17/2019 Office Visit Delfina Orta, Swapna riddle skin (Primary Dx); Dermatology MD Skin exam for malignant neoplasm; [address] [address] [place] Seborrheic keratosis; [place] [address] [place], [place] Personal history of malignan t melanoma of skin; [phone] [id number] History of dysplastic nevus; [phone] (Wo rk) Eczema, dyshidrotic Social History Tobacco Use Types Packs/Day Years [...] encounter Patient Instructions Patient InstructionsJeny HernandezITA - 03/17/2019 9:45 AM CDT DIRECT PHONE NUMBER: TIMMY [phone]. FEEL FREE TO CALL WITH ANY QUESTIONS OR CONCERNSYOU MAY HAVE. 1. Clothing and shade are the best for sun protection. 2. Use sunblock with zinc in it. See below for Dr. Mccray's sunblock recommendations. 3. Consider switching to a more bland toothpaste without chemicals. This could help prevent the irritation by the mouth. 4. [employer] has nice lightweight long sleeve shirts- [employer] is the brand. 5. For the bumps on the hands- Try journaling when you have a breakout to see if you can pinpoint a trigger. Take note of what you ate, how much stress you're under, environmental factors such as bug bites. -Treat bumps with prescribed Lidex cream. Dab on area once and cover with a bandage. You could also use this the same way on bug bites. MOLES TO HAVE CHECKED IN CLINIC: BLACK, BISHOP OR BROWN IN THE CENTER WITH A RED OR COPPER TONE COLORING AROUND IT. ANY MOLES THAT CHANGE OR DOUBLE IN SIZE. SUNBLOCK: PREFER CLOTHING OVER SUNSCREEN. WHEN USING SUNSCREEN, PREFER SUNBLOCKS THAT ARE ZINC BASED AND ARE AT LEAST 5% ZINC. -VANICREAM SPF 30 OR 50 -SEAN AVAILABLE AT [employer] -PACIFICA MINERAL SUNSCREEN AVAILABLE AT [employer] -CELY AVAILABLE AT [employer] OR [employer] -BLUE LIZARD (FOR SENSITIVE SKIN OR BABY) -BULLFROG SUNSCREEN -TERRASPORT OR AQUASPORT WHICH ARE AVAILABLE AT [employer] OR ONLINE. -AVEENO MINERAL SUNSCREEN (AVAILABLE AT [facility] [employer]) *MORE ELEGANT SUNSCREENS WITH ZINC IN IT: -BABO SUNSCREEN (AVAILABLE AT [employer] OR ONLINE) - Available in a tinted version. -ESPERANZA-POSAY ANTHELIOS 50 MINERAL ULTRA LIGHT ([facility] [employer] OR ONLINE) - Available in a tinted version. -JUICE BEAUTY SPF 30 TINTED MINERAL MOISTURIZER FOR FACE -JUICE BEAUTY SPORT SPF 30 SPORT SUNSCREEN -BEAUTY COUNTER ALL MINERAL SUNSCREEN STICK, LOTION OR SPRAY -BEAUTY COUNTER DEW SKIN MOISTURIZING COVERAGE FOR FACE -CLINIQUE CITY BLOCK SHEER SPF 25 (NOT CLINIQUE [place] BLOCK SPF 40) -MCKENNA HILTON WHICH IS AVAILABLE AT [email or web address] *Avoid sunscreens with oxybenzone, parsol 1789 (avobenzone) [...] USE Thank you for choosing Dermatology at [facility]! We welcome your feedback. Comment cards are located in our lobby. For questions, please call and choose one of the following options: - for appointments and scheduling, press 1 - to speak with a nurse about a medical question from 7:30 am to 5 pm, press 2 - after hours emergencies, follow the instructions to be transferred to the pest control worker provider For medication refills, please contact your pharmacy. For questions regarding billing, please contact Patient Financial Services at . documented in this encounter Progress Notes Delfina Knox MD - 03/17/2019 12:00 PM CDT NAME: LIANA JUAREZ MR#: [id number] CSN: [id number] AUTHENTICATING CLINICIAN: Delfina Knox MD CONFIRM #: [id number] LOC: 527 CLINIC PROGRESS NOTE DATE OF VISIT: 03/17/2019 : 1985 Liana is a delightful 33-year-old mother of Ros who will be 4 in April. History of a melanoma 2008, left breast 0.39 mm in depth, and then a 2nd melanoma left anterior leg 2009 or 2010, 0.19 mm in depth. History of a severely dysplastic nevus left forehead excised by Christina Hernadez. She had a Spitz nevus behind the left knee. She has rheumatoid arthritis. She will see Rheumatology today. She gets a rash on the corner of the mouth on the right side that comes and goes aboutevery other month. Clindamycin makes it go away. She has not tried a change in toothpaste, but uses less toothpaste so it does not run down the side of the mouth as much. She has a metronidazole allergy. She has noticed nothing worrisome. PHYSICAL EXAM: SKIN: A full-body exam including scalp, face, neck, chest, back, abdomen, buttocks, groin, arms, legs, hands, feet, nails, perirectal and pubic area: Just a hint of perioral dermatitis on the right corner of the mouth, but a little bit on the left to, it is just not flared. We talked at length about changing toothpaste to something plain label using very little most of the brushing motion is what is cleaning the teeth and making sure it stays off the mouth. She has a little redness to her face from past sun exposure. She has a scar on the left forehead that is well healed with no sign of recurrence. 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 Scalp is clear. Two brown nevi that are junctional on the upper back, a couple on the lower back, not worrisome. Multiple scars. Scar on the left anterior leg with a couple sherman hemangiomas on the legs and a lot of red sherman hemangiomas chest and back. Labial skin, she has a few little junctional nevi on the inner thighs, fleshy 1 as well, and then she has a little dilated pore in the left mons pubis and I squeezed that cleared. Told her how to do that to avoid a cyst probably started with an ingrown hair. She has a few inflammatory papules on thesides of the fingers consistent with a very low-grade dyshidrotic eczema. No lymphadenopathy was foun d in the neck, supraclavicular, infraclavicular, axillary, nor groin region She is allergic to nickel or cheap jewelry as well as wound dressing adhesive. ASSESSMENT: History of melanoma, Spitz nevi, dyshidrotic eczema papules on the sides of the finger, not on the palm itself, rheumatoid arthritis history, a dilated pore. PLAN: Talked about the benign nature of the cherries, about the dyshidrotic eczema, look at nickel in foodand see if there is anything related as she only seems to get these in the summer. Hydrocortisone isnot helpful. Icing can be. We talked about Lidex under a Band-Aid for them just once or twice and she can use those for bug bites as well, but not on Ros and not on Liana's face. Talked about what to be watching for the nevi. Talked about sun protection clothing and zinc- based sunscreen and what padilla watching for. Talked about clean diet, clean eating for her and for Ros as well both for autoimmunity and just general health. I will see her back in 6 months, sooner if there are questions or con cerns. Lidex ointment prescribed. VLV:MEDQ C: CONFIRM #: [id number] documented in this encounter Plan of Treatment Upcoming Encounters Date Type Specialty Care Team Description 05/18/2022 Appointment Rheumatology Erasmo Horn MD [address] [facility] [place] [address] (Wo rk) documented as of this encounter Visit Diagnoses Diagnosis Sun-damaged skin - Primary Other chronic dermatitis due to solar ra diation Skin exam for malignant neoplasm Screening for malignant neoplasm of the skin Seborrheic keratosis Other seborrheic keratosis Personal history of malignant melanoma o f skin History of dysplastic nevus Personal history of diseases of skin and subcutaneous tissue Eczema, dyshidrotic Dyshidrosis documented in this encounter Care Teams Lawn And Tree Service Spray Supervisor Relationship Specialty Start Date End Date Liana Tovar MD PCP - General 03/08/[address] [place] [address] documented as of this encounter
--- OUTSIDE RECORDS SUMMARY | 2022-05-17 08:29 | XMS_ITS | Encounter Summary ---
:1985 Author Organization [employer] Address [address] [place] [address] Care Team Providers Name Role Phone Manjit Tovar MD Primary Care Provider Reason for Visit Reason Comments RASH Encounter Details Date Type Department Care Team Description 02/14/2018 Office Visit Delfina Orta, Dermatit is (Primary Dx); Dermatology Perioral dermatitis; [address] [place] [address] [place], [place] [phone] (Wo rk) Social History Tobacco Use Types [...] of this encounter Patient Instructions Patient InstructionsJeny Hernandez LPN - 02/14/2018 11:00 AM CDT 1. Clothing and shade are the best for sun protection. 2. Use sunscreen with zinc in it. See below for Dr. Mccray's sunscreen recommendations. 3. Moisturize the area often. Several times daily. With bland moisturizers like Aleida-cream. Do not scratch or scrub. 4. Take the prescribed doxycycline. Take at end of a meal. Take twice daily. Once clear, you can stop taking. Take a probiotic while taking. PROBIOTIC RECOMMENDATIONS: *PROBIOTICS HELP MAINTAIN THE NORMAL GI TRACT BACTERIA. * BUY ONE THAT CONTAINS NO PRESERVATIVES * PREFER [employer] CD * RECOMMEND A OVER THE COUNTER PROBIOTIC THAT CONTAINS SEVERAL STRAINS OF BACTERIA. CHECK THE LABEL FOR THE INGREDIENTS. * SOME COMMON BACTERIA STRAINS: SACCHROMYCES ACIDOPHILUS BIFIDUS * YOGURT CONTAINS PROBIOTICS. PREFER YOGURT THAT CONTAINS FAT (LIKE SYRIAC YOGURT) * SOME MEDICATIONS CAN AFFECT THE NORMAL BACTERIA IN OUR GI TRACT CAUSING A PATIENT TO EXPERIENCE POSSIBLE STOMACH UPSET OR NAUSEA OR DIARRHEA. *TRY TO TAKE THE PROBIOTIC AT A SEPARATE TIME THEN WHEN YOU TAKE YOUR ANTIBIOTIC. * RECOMMEND YOU CONTINUE TAKING PROBIOTICS FOR AN ADDITIONAL TWO WEEKS AFTER COMPLETING THE ORAL ANTIBIOTIC. 5. When the rash on your arms comes back, contact us. 6. Start thinking about an auto-immune diet, or RA diet. Do some research and think about making some of these changes. Dr. Nathan Wong has a lot of good information about these types of diets. Do someresearch on her. Dr. Scarlet Elder also has good information. DIRECT PHONE NUMBER: TIMMY [phone]. FEEL FREE TO CALL WITH ANY QUESTIONS [...] FOR EXAMPLE: VANICREAM SPF 30 OR 50, PACIFICA MINERAL SUNSCREEN AVAILABLE AT [facility], NEUTROGENA SENSITIVE SKIN, CELY, BLUE LIZARD FOR SENSITIVE SKIN, BULLFROG SUNSCREEN, AND TERRASPORT OR AQUASPORTWHICH ARE AVAILABLE AT [facility]. *MORE ELEGANT SUNSCREENS WITH ZINC IN IT: [facility] BLOCK SHEER SPF 25 (NOT CLINIQUE [facility] BLOCK SPF 40) MCKENNA HILTON WHICH IS AVAILABLE AT [employer] *Avoid sunscreens with oxybenzone, parsol 1789 (avobenzone) [...] USE Thank you for choosing Dermatology at [facility]! We welcome your feedback. Comment cards are located in our lobby. For questions, please call and choose one of the following options: - for appointments and scheduling, press 1 - to speak with a nurse about a medical question from 7:30 am to 5 pm, press 2 - after hours emergencies, follow the instructions to be transferred to the glue bone drier provider For medication refills, please contact your pharmacy. For questions regarding billing, please contact Patient Financial Services at . Please consider enrolling in [facility]. Please follow the instructions below to securely access your online medical record. [facility] allows you to send messages to your doctor, view your test results, renew your prescriptions, schedule appointments, and more. How Do I Sign Up? 1. In your Internet browser, go to: [email or web address] 2. Click on the Enter Activation Code link under the New User? section. You will see the New Member Sign Up page. 3. Enter your [employer] Activation Code exactly as it appears below. You will not need to use this code after you???ve completed the sign-up process. If you do not sign up before the expiration date, youmust request a new code. Black[employer]othart Activation Code: Activation code not generated Current [facility] Status: Active 4. Enter the last four digits of your Social Security Number ([id number]) and Date of (mm/dd/yyyy) as indicated and click Next. You will be taken to the next sign-up page. 5. Create a [employer] ID. This will be your [facility] login ID and cannot be changed, so think of one that is secure and easy to remember. 6. Create a [employer] password. You can change your password at any time. 7. Enter your Security Question and Answer. This can be used at a later time if you forget your password. Click Next. 8. Enter your e-mail address. You will receive e-mail notification when new information is availablein [facility]. 9. Click Sign In. You can now view your medical record. Additional Information If you have questions, you can call [phone] to talk to our [facility] staff. Remember, [facility] is NOT to be used for urgent needs. For medical emergencies, dial 911. documented in this encounter Progress Notes Delfina Knox MD - 02/14/2018 11:18 AM CDT NAME: MANJIT JUAREZ MR#: [id number] CSN: [id number] AUTHENTICATING CLINICIAN: Delfina Knox MD CONFIRM #: [id number] LOC: 527 CLINIC PROGRESS NOTE DATE OF VISIT: 02/14/2018 : 1985 SUBJECTIVE: Manjit is a delightful 32-year-old I have known for years. She has a history of a melanoma left breast 0.39 mm in depth 2008, thin melanoma left anterior leg 2000, 0.19 mm in depth, and history of severely dysplastic nevus left forehead as well as a Spitz nevus behind the left knee. She has a couple moles I follow, but she is not here for that today. Today, she is here for a rash around the eyes she has had since , several months. She has been given hydrocortisone cream that does not work, so she quit using it. We do not know what it was. She has been doing Vanicream and 1% hydrocortisone and it used to be around the entire eye, now it is just the corner of the eye and a little bit at the mouth. It is not itchy. She does have rheumatoid arthritis. She is having a little more pain in the low back and the doctor is wondering if it is psoriatic arthritis and this is psoriasis. She also gets this painful arcuate rash on her elbows on occasion and she does not have it now. It is oval patches. They come and go and it is painful and I told her if that comes up again, I want to see it. OBJECTIVE: Manjit has little inflammatory papules coalescing into plaque at the corner of the left eye and a little bit at the corner of the right mouth. She has fair skin. No antonio. Elbows are completely clear at this time. 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 Certainly rheumatoid arthritis. PLAN: We talked a little bit about autoimmune conditions and autoimmune diet, Scarlet Elder and Dr. Dodson. We talked about she has gained a new dairy allergy and we talked about glyphosate and leaky gut and the consequences. Encouraged her to Google that, think about it. Consider gluten dairy free diet for a month and see how she feels. If the rash on the elbow flares, I want to see her back, make serrano re it is not a vasculitis. For the condition she came in on, no scrubs, no buff puffs, no steroids, moisturize like crazy, and doxycycline 100 mg b.i.d. hopefully, not more than a week and drinks some Kombucha at the same time, which is dairy free to keep good bacteria in the gut, lots of vegetables and fruits which are prebiotics and I will see her back in a month for a full-body exam and check these things. If she has questions in the meantime, she should call and we will talk over the phone. If the rash on the elbow flares, I want to try and get her in and get a biopsy. VLV:MEDQ C: CONFIRM #: [id number] documented in this encounter Plan of Treatment Upcoming Encounters Date Type Specialty Care Team Description 05/18/2022 Appointment Rheumatology Erasmo Horn MD [address] [facility] [place] [id number] (Wo rk) documented as of this encounter Visit Diagnoses Diagnosis Dermatitis - Primary Contact dermatitis and other eczema, due to unspecified cause Perioral dermatitis Rosacea Dairy allergy Allergy, unspecified not elsewhere class ified documented in this encounter Care Teams Space Operations Officer Relationship Specialty Start Date End Date Manjit Tovar MD PCP - General 03/08/[address] [place] [address] documented as of this encounter
--- OUTSIDE RECORDS SUMMARY | 2022-05-17 08:29 | XMS_ITS | Encounter Summary ---
:1985 Author Organization [facility] Address [address] [place] [address] Care Team Providers Name Role Phone Liana Tovar MD Primary Care Provider Reason for Visit Reason Comments Skin Check Encounter Details Date Type Department Care Team Description 03/13/2018 Office Visit Delfina Orta, Swapna riddle skin (Primary Dx); Dermatology Seborrheic keratosis; [address] [address] [facility] Skin exam for malignant neoplasm; [place] [address] [place], [place] Personal history of malignan t melanoma of skin; [phone] History of dysplastic nevus; [phone] (Wo rk) Neoplasm of skin; Acral com pound nevus Social History Tobacco Use Types Packs/Day [...] Patient Instructions Patient InstructionsIwona Suarez RN - 03/13/2018 9:45 AM CDT 1. Clothing and shade are the best for sun protection. 2. Use sunscreen with zinc in it. See below for Dr. Mccray's sunscreen recommendations. 3. Clean the wound daily with dilute white vinegar, blot dry apply vaseline, cover with bandaid VINEGAR SOAKS: * IN A JAR WITH A LID ADD 1 PART WHITE VINEGAR TO 4 PARTS WATER. (USE CLEAN WATER USE EITHER BOILED,BOTTLED OR DISTILLED) * USE COTTON BALL OR Q-TIP AND DAB ON WOUND OR POUR SMALL AMOUNT OVER WOUND * THEN LET AIR DRY OR BLOT DRY.. * THEN APPLY VASELINE AND COVER WITH BANDAID DIRECT PHONE NUMBER: TIMMY [phone]. FEEL FREE TO CALL WITH ANY QUESTIONS [...] OR 50, PACIFICA MINERAL SUNSCREEN AVAILABLE AT [employer], NEUTROGENA SENSITIVE SKIN, CELY, BLUE LIZARD FOR SENSITIVE SKIN, BULLFROG SUNSCREEN, AND TERRASPORT OR AQUASPORTWHICH ARE AVAILABLE AT [facility]. *MORE ELEGANT SUNSCREENS WITH ZINC IN IT: CLINIQUE CITY BLOCK SHEER SPF 25 (NOT CLINIQUE [facility] CITY BLOCK SPF 40) MCKENNA HILTON WHICH IS AVAILABLE AT [employer] *Avoid sunscreens with oxybenzone, parsol 1789 (avobenzone) [...] BATH IN ADDITION TO YOUR DAILY USE Care Instructions after a Skin Biopsy/Surgery When [...] the site. Please call the clinic at [phone] if you experience any of these symptoms. When should my sutures be removed? Please schedule your nurse appointment at the administrative assistant front desk for the suture removal within 10-14 days. [...] within 2 weeks, please call us at [phone]. Thank you for choosing Dermatology at [facility]! We welcome your feedback. Comment cards are located in our lobby. For questions, please call and choose one of the following options: - for appointments and scheduling, press 1 - to speak with a nurse about a medical question from 7:30 am to 5 pm, press 2 - after hours emergencies, follow the instructions to be transferred to the president ergonomic consulting provider For medication refills, please contact your pharmacy. For questions regarding billing, please contact [employer] at . Please consider enrolling in [employer]. Please follow the instructions below to securely access your online medical record. Callision allows you to send messages to your doctor, view your test results, renew your prescriptions, schedule appointments, and more. How Do I Sign Up? 1. In your Internet browser, go to: [email or web address] 2. Click on the Enter Activation Code link under the New User? section. You will see the New Member Sign Up page. 3. Enter your Callision Activation Code exactly as it appears below. You will not need to use this code after you???ve completed the sign-up process. If you do not sign up before the expiration date, youmust request a new code. Callision Activation Code: Activation code not generated Current Callision Status: Active 4. Enter the last four digits of your Social Security Number ([id number]) and Date of (mm/dd/yyyy) as indicated and click Next. You will be taken to the next sign-up page. 5. Create a Callision ID. This will be your Callision login ID and cannot be changed, so think of one that is secure and easy to remember. 6. Create a Callision password. You can change your password at any time. 7. Enter your Security Question and Answer. This can be used at a later time if you forget your password. Click Next. 8. Enter your e-mail address. You will receive e-mail notification when new information is availablein Callision. 9. Click Sign In. You can now view your medical record. Additional Information If you have questions, you can call [phone] to talk to our MyChart staff. Remember, [employer] is NOT to be used for urgent needs. For medical emergencies, dial 911. documented in this encounter Progress Notes Delfina Knox MD - 03/18/2018 3:17 PM CDT Pt informed on voicemail Delfina Knox MD - 03/13/2018 10:19 AM CDT NAME: LIANA ABURTO MR#: [id number] CSN: [id number] AUTHENTICATING CLINICIAN: Delfina Knox MD CONFIRM #: [id number] LOC: 527 CLINIC PROGRESS NOTE DATE OF VISIT: 03/13/2018 : 1985 SUBJECTIVE: Liana is a delightful 32-year-old mother of 1Ros, who is 10 months old. is Aly. She has had melanoma in 2008 on the left breast 0.39 mm in depth, and then a 2nd melanoma on the left anterior lower leg 2009 or 2010. It was 0.19 mm in depth. History of severely dysplastic nevus, left forehead, and a Spitz nevus behind the left knee. Her perioral dermatitis cleared. She does have rheumatoid arthritis. We have discussed a diet, not a lot in the past. She has had rashes on elbows in the past I thought possibly might be GA, but they have not come back. Her daughter has had little bumps on her face, and Liana herself has had keratosis pilaris. She also has a mole on the 2nd toe I have a mayra tograph of, but she feels like it is getting bigger and growing and really does make her nervous. OBJECTIVE: Full-body exam today including scalp, face, neck, chest, back, abdomen, buttocks, groin, arms, legs,hands, feet, nails, perirectal and pubic area. Some large scars on the legs, face, and chest. Palpation feels no irregularity underneath them. A few light brown nevi, left lateral flank, and a couple on the upper back and arms. She does have the 1 darker mole on the right 2nd toe near the base laterally. It has a white spot now in the middle, maybe a compound component growing, but I have to listen to her gestalt, and she just feels like it has changed. Comparing to the photograph, the white is new and the size might be slightly bigger. It is approaching 6 mm in size. No lymphadenopathy found in the neck, supraclavicular, infraclavicular, axillary, nor groin region. She is ticklish in the armpits. ASSESSMENT: Rule out severely dysplastic nevus, right foot. History of melanoma, no active disease. PLAN: Discussed Ros's KP as well. I recommend no treatment at all. I would not use acne medication on the baby, and her skin actually is beautiful, a little bit darker like Aly's, not pink like mom's. The mole on the right 2nd toe, we discussed removal today, and she would like to proceed. Informed consent was obtained. Photo was taken. 1% lidocaine with epinephrine at 1:100,000 right under the toe. A6 mm plug biopsy to remove it completely and two 5-0 Ethilon stitches placed. Wound care instructions given verbally. I would like her to do vinegar rinses and Vaseline, ice it, Motrin for pain. It is going to be the swelling that causes the most discomfort. See her back in 2 weeks for suture removal and will go from there. DIAGNOSIS: ?Skin, right 2nd toe, punch biopsy: ?- Irritated benign compound acral nevus, narrowly free of sampled ?biopsy margins. ?COMMENT: Melan-A/Ki-67 dual immunostain highlights the lesion and ?shows no significant proliferative activity in dermal ?melanocytes. HMB-45 immunostain demonstrates a maturation ?gradient among dermal melanocytes. If a pigmented lesion recurs ?at this site, I suggest additional biopsy. Pt informed on voice,ail VLV:MEDQ C: CONFIRM #: [id number] Iwona Suarez RN - 03/13/2018 9:45 AM CDT Images from the original note were not included. Rt 2nd toe Biopsy documented in this encounter Plan of Treatment Upcoming Encounters Date Type Specialty Care Team Description 05/18/2022 Appointment Rheumatology [facility]asmo Horn [facility] [address] [facility] [address] (Wo rk) documented as of this encounter Procedures Procedure Name Priority Date/Time Associated Comments Diagnosis DERMATOLOGY TISSUE Routine 03/13/2018 10:11 Neoplasm of skin R esults for this TRACKING TEST AM CDT procedure are in the results section. SURGICAL PATH, PARK Routine 03/13/2018 7:00 AM Re sults for this NICOLLET CDT procedure are i n the results section. documented in this encounter Results Dermatology Tissue Tracking Test (03/13/2018 10:11 AM CDT) [facility] Method Time Signature Dermatology Collected PN SOFT Specimen Status Specimen (Source) Anatomical Collection Method Collection Time Re ceived Time Location / / Volume Laterality 03/13/2018 10:11 AM CDT Delfina Knox MD LAB_1 Performing Organization Address City/State/ZIP Code Phon e Number PN SOFT [address] [place] [address] Pathology Report (03/13/2018 7:00 AM CDT) [facility] gist Method Time Signature Path: FINAL DERMATOPATHOLOGY REPORT PN SOFT Pathology #: [id number] ? Date Obtained: 03/13/2018 ?Date Received: 03/13/2018 DIAGNOSIS: ?Skin, right 2nd toe, punch biopsy: ?- Irritated benign compound acral nevus, narrowly f ree of sampled ?biopsy margins. ?COMMENT: Melan-A/Ki-67 dual immunostain highlights the lesion and ?shows no significant proliferative activity in derm al ?melanocytes. HMB-45 immunostain demonstrates a matu ration ?gradient among dermal melanocytes. If a pigmented l esion recurs ?at this site, I suggest additional biopsy. ? Trevin YATES ? (electronic signatur e) ? 03/18/2018 ??12:4 3 CLINICAL NOTES: ?Pertinent Clinical Hx/Evaluate for?->. Clinical I mpression ?(A)->r/o dn ORGAN/TISSUE SITE: ?Rt 2nd toe GROSS DESCRIPTION: ?Received in a formalin-filled container labeled wit h the ?patient's name is a 5 x 5 x 2 mm punch biopsy of sk in. ??The ?specimen is marked with black ink, bisected and sub mitted ?entirely in one cassette. ?da ? BLOJE MICROSCOPIC DESCRIPTION: ?Microscopic examination performed. Technical component performed at: [facility], [address], [place] [address] Professional component performed at: [facility], [address] [place] [address] Specimen Anatomical Collection Method Collection Time Receive d Time (Source) Location / / Volume Laterality SKIN PUNCH BIOPSY 03/13/2018 7:00 AM 02/24 7:00 SPECIMEN / Unknown CDT AM CDT Delfina Knox MD LAB_1 Performing Organization Address City/State/ZIP Code Phon e Number PN SOFT [address] [place] [address] [phone] documented in this encounter Visit Diagnoses Diagnosis [...] nature of bone, soft tissue, and skin Acral compound nevus documented in this encounter Care Teams Solid Waste Collection Worker Relationship Specialty Start Date End Date Liana Tovar MD PCP - General 03/08/[address] [place] [address] documented as of this encounter
--- OUTSIDE RECORDS SUMMARY | 2022-05-17 08:29 | XMS_ITS | Encounter Summary ---
:1985 Author Organization [employer] Address [address] [place] [address] Care Team Providers Name Role Phone Liana Tovar MD Primary Care Provider Reason for Referral (Routine) - Closed Specialty Diagnoses / Procedures Referred By Contact Refer red To Contact Diagnoses Actinic keratosis Delfina Knox MD Procedures [place] DESTRUC BENIGN/PREMAL,2-14 L[place] [place] [address] Referral ID Status Reason Start Date Expiration Date Visits Requ ested Visits Authorized [id number] Closed 03/24/2020 06/23/2021 1 1 Reason for Visit Reason Comments Skin Check Encounter Details Date Type Department Care Team Description 03/24/2020 Office Visit Delfina Orta Sun-dama ged skin (Primary Dx); Dermatology Actinic keratosis; [address] [address] [address] Eczema, dyshidrotic; [place] [address] [place], [place] Seborrheic keratosis; [phone] Skin exam for malignant neoplasm; [phone] (Wo rk) Personal history of malignant melanoma o f skin; History o f dysplastic nevus Social History Tobacco Use Types [...] Patient Instructions Patient InstructionsIwona Suarez RN - 03/24/2020 9:45 AM CDT 1. Clothing and shade are the best for sun protection. 2. Use sunblock with zinc in it. See below for Dr. Mccray's sunblock recommendations. 3. For your hands: Prescription for Lidex (Fluocinonide) sent to your pharmacy. See Low-Nickel diet handout. 4. For under your arms: Use OTC antifungal/antiyeast cream a couple of times a week. Example: Miconazole cream, Lotrimin cream, Lamisil cream, Clotrimazole cream. After showering, you can use blow dryer on cool setting, then apply antifungal/antiyeast cream. You can use 1 time only: Lidex (Fluocinonide) Only use this one time only. This is really strong and can thin the skin. DIRECT PHONE NUMBER: TIMMY [phone]. FEEL FREE TO CALL WITH ANY QUESTIONS [...] 5% ZINC. -VANICREAM SPF 30 OR 50 -CERAVE MINERAL SUNSCREEN -CELY AVAILABLE AT [employer] OR [employer] -BLUE LIZARD (FOR SENSITIVE SKIN OR BABY) -BULLFROG SUNSCREEN -TERRASPORT OR AQUASPORT WHICH ARE AVAILABLE AT [employer] OR ONLINE. -AVEENO MINERAL SUNSCREEN (AVAILABLE AT [employer]) *MORE ELEGANT SUNSCREENS WITH ZINC IN IT: -BABO SUNSCREEN (AVAILABLE AT [employer] OR ONLINE) -SEAN AVAILABLE AT [employer] -PACIFICA MINERAL SUNSCREEN AVAILABLE AT [employer] -ESPERANZA-POSAY ANTHELIOS 50 MINERAL ULTRA LIGHT ([employer] OR ONLINE) -JUICE BEAUTY SPF 30 TINTED MINERAL MOISTURIZER FOR FACE -JUICE BEAUTY SPORT SPF 30 SPORT SUNSCREEN -BEAUTY COUNTER ALL MINERAL SUNSCREEN STICK, LOTION OR SPRAY -BEAUTY COUNTER DEW SKIN MOISTURIZING COVERAGE FOR FACE -CLINIQUE CITY BLOCK SHEER SPF 25 (NOT CLINIQUE SUPER CITY BLOCK SPF 40) -MCKENNA HILTON WHICH IS AVAILABLE AT [employer] *Avoid sunscreens with oxybenzone, parsol 1789 (avobenzone) [...] BATH IN ADDITION TO YOUR DAILY USE Liquid Nitrogen Treatment (Cryotherapy) How it Works: Liquid nitrogen (Cryotherapy) is a cold liquified gas, with a temperature of -321?? F.It's used to freeze and destroy superficial skin growths. Treatment Goals: Treatment with liquid nitrogen may cause the treated area to appear red or swollen anywhere from a few hours to a couple of days. Usually a scab/crust forms, which will fall off by itself in 1 to 3 weeks. The skin growth will fall off with the scab, leaving healthy new skin. This new skin is typically glaucoma specialist, and will usually blend in color-stevens over time. You May Experience: Liquid nitrogen causes stinging and mild pain while the growth is being frozen and then thaws. The worst discomfort occurs during the first five to 10 minutes of the procedure, but can sometimes last significantly longer. A blister, sometimes a blood blister, may form. If this occurs, you may pop the blister with a cleanneedle, but leave the roof of the blister intact on the skin. If this does happen, keep the area covered with a Band-Aid and use Vaseline or antibiotic ointment. Areas that are prone to blistering are the eyelids and hands. The blisters and swelling are part of the treatment and will gradually heal. No special care is needed, you can wash as usual and use makeup or other cosmetics. You also may experience some redness, swelling, tenderness, weeping, or crusts/scabs. Try not to pick at, itch, or scrub the area. If the treated sore area feels sore or irritated, you can keep it covered. Avoid excessive sun exposure since this can result in persistent darkening at the treated sites. PLEASE NOTE: Sometimes, growths have to be re-frozen. If your growth is not cured by liquid nitrogen, please make a return appt. Uncommon: Call the nurse's line below if you have any white, green, or yellow fluid damage or any sign of an apparent infection. Nurse Line: documented in this encounter Progress Notes Delfina Knox MD - 03/24/2020 12:00 PM CDT NAME: LIANA JUAREZ MR#: [id number] CSN: [id number] AUTHENTICATING CLINICIAN: Delfina Knox MD CONFIRM #: [id number] LOC: 527 CLINIC PROGRESS NOTE DATE OF VISIT: 03/24/2020 : 1985 Liana is a 34-year-old I have known for years. She has had a melanoma 2009, left breast, 0.39 mm in depth. Second melanoma, left anterior leg in 2010, 0.19 mm depth, severely dysplastic nevus left forehead, rheumatoid arthritis since age 19. Allergic to nickel. Some dyshidrotic eczema, improved greatly off nickel and low wheat, but she said it has flared again and it is not related to food. She did nickel free diet, did not help, and she did food journaling and does not know what brings it on. She says the Lidex does not help at all, but she did ask for a refill of that, so it may help a little bit. She did use Lidex for bug bites and that did help. She has gotten more sun recently during -, being outside with Ros. Ros does have long-sleeve swim shirt. Liana ordered some and hated them all, and does not have one. She has noticed a scaly spot on the left cheek that is not clearing. She also has noticed painful rash in the armpits that comes and goes. She switched deodorant and it did not seem to help. She can get a little hangry. She does not know that she has any problems with sugar levels. OBJECTIVE: Full-body exam today, including scalp, face, neck, chest, back, abdomen, buttocks, groin, arms, legs, hands, feet, nails, perirectal and pubic area. No dyshidrotic at all. No rashes on the hands. She has an AK on the left side of the nose and the left cheek that were tiny, but I did feel like I neededto freeze them. The one had a little pigmentation to it on the nose. Scar on the forehead is fine. Scars in the back are fine. She is tanned, a little almost sunburned over the shoulders with lentiginous hyperplasia. Her face is well protected, but a little bit tanned, not much at all. It is the shoulders I am worried about, upper chest and back. She has some nevi, largest is on the right thigh. Otherwise, we have taken so many out she has very few nevi remaining. Again, no rashes. Perirectal and genitalia looked fine. Armpits show a little irritation at the very crease of the armpit, maybe a few papules. No pustules. ASSESSMENT: I think intertrigo in the armpits, dyshidrotic eczema history. Question nickel allergy, maybe even wheat problems. Two actinic keratoses frozen with liquid nitrogen by [place]. She tolerated it fine. Itis the 1st time I have ever done that. Wound care instructions given verbally. We talked a very longtime about dyshidrotic eczema too and I regave her the information on nickel. Talked about we could patch test if she has problems but to have none today is good. Talked a little bit about high insulinlevels and intertrigo, and encouraged her to do no eating after dinner and low, low, low sugar. Talked about sun clothing and zinc- based sunscreen. No nevi needed to be removed today. I will see her back in June. She already has that appointment, but then again will do a February appointment and get Aly scheduled in at the same time. Lidex was refilled. Side effects from that discussed for the intertrigo. She will do antifungal cream. Wound care instructions given verbally for the AKs. Brochure onnickel given and will go from there. VLV:MEDQ C: CONFIRM #: [id number] documented in this encounter Plan of Treatment Upcoming Encounters Date Type Specialty Care Team Description 05/18/2022 Appointment Rheumatology Erasmo Horn MD [address] [facility] [place] [address] (Wo rk) documented as of this encounter Visit Diagnoses Diagnosis Sun-damaged skin - Primary Other chronic dermatitis due to solar ra diation Actinic keratosis Eczema, dyshidrotic Dyshidrosis Seborrheic keratosis Other seborrheic keratosis Skin exam for malignant neoplasm Screening for malignant neoplasm of the skin Personal history of malignant melanoma o f skin History of dysplastic nevus Personal history of diseases of skin and subcutaneous tissue documented in this encounter Care Teams Furnace Packer Relationship Specialty Start Date End Date Liana Tovar MD PCP - General 03/08/[address] [place] [address] documented as of this encounter
--- OUTSIDE RECORDS SUMMARY | 2022-05-17 08:29 | XMS_ITS | Encounter Summary ---
:1985 Author Organization [employer] Address [address] [place] [address] Care Team Providers Name Role Phone Liana Tovar MD Primary Care Provider Reason for Visit Reason Comments Skin Exam Encounter Details Date Type Department Care Team Description 08/29/2016 Office Visit Delfina Orta, Swapna riddle skin (Primary Dx); Dermatology Seborrheic keratosis; [address] [address] [place] Keratosis pilaris; [place] [address] [place], [place] Skin exam for malignant neop lasm; [phone] Personal history of malignant melanoma o f skin; [phone] (Wo rk) Neoplasm of skin; Spitz nev us of lower leg, left Social History Tobacco Use Types Packs/Day Years [...] as of this encounter Patient Instructions Patient InstructionsMaddy Chapman MA - 08/29/2016 9:45 AM CST DIRECT PHONE NUMBER: MADDY GRAY [phone]. FEEL FREE TO CALL WITH ANY QUESTIONS OR CONCERNS YOU MAY HAVE. MOLES TO HAVE CHECKED IN [...] 50, NEUTROGENA SENSITIVE SKIN, CITY BLOCK BY CLINIQUE, BLUE LIZARD FOR SENSITIVE SKIN, AND TERRASPORT OR AQUASPORT WHICH ARE AVAILABLE AT [facility]. VITAMIN D-3 RECOMMENDATIONS: - TAKE VITAMIN D [...] BATH IN ADDITION TO YOUR DAILY USE Gluten Free - could consider going gluten free which can be helpful for skin conditions. KERATOSIS PILARIS Keratosis Pilaris (KP) is a common skin condition that is not harmful. It tends to run in families and usually affects the upper arms, and sometimes affects the cheeks and thighs. Facial involvement tends to improve with age (after childhood). There is no cure for keratosis pilaris, but certain moisturizers (see below) may make the bumps smoother and less obvious. Recommended moisturizer: ?? Ammonium lactate cream or lotion, 5% or 12% (brand names include AmLactin and LacHydrin) ?? Sometimes this is kept behind the pharmacy counter or need to be ordered by the pharmacist. If you scrub your skin and then apply this lotion, it will sting more. Prefer you apply the lotion at a different time then after a scrub. * Water soak - Add 1-2 cups of Epsom Salts to the bath water and then soak in the warm water, not hot for at least 10-15 minutes. . After you have soaked for at least 10 minutes, then you can gently scrub the affected area to help exfoliate the excess skin. Do not over scrub or scrub the skin raw. Care Instructions after a Skin Biopsy/Surgery When [...] the site. Please call the clinic at [phone] if you experience any of these symptoms. When should my sutures be removed? Please schedule your nurse appointment at the director of front office for the suture removal within 10-14 days. [...] within 2 weeks, please call us at [phone]. Thank you for choosing Dermatology at [facility]! We welcome your feedback. Comment cards are located in our lobby. For questions, please call and choose one of the following options: - for appointments and scheduling, press 1 - to speak with a nurse about a medical question from 7:30 am to 5 pm, press 2 - after hours emergencies, follow the instructions to be transferred to the management professionals provider For medication refills, please contact your pharmacy. For questions regarding billing, please contact [facility] at . Please consider enrolling in [employer]. Please follow the instructions below to securely access your online medical record. [employer] allows you to send messages to your doctor, view your test results, renew your prescriptions, schedule appointments, and more. How Do I Sign Up? 1. In your Internet browser, go to: [email or web address] 2. Click on the Enter Activation Code link under the New User? section. You will see the New Member Sign Up page. 3. Enter your [employer] Activation Code exactly as it appears below. You will not need to use this code after you???ve completed the sign-up process. If you do not sign up before the expiration date, youmust request a new code. [employer] Activation Code: Activation code not generated Current [employer] Status: Active 4. Enter the last four digits of your Social Security Number ([id number]) and Date of (mm/dd/yyyy) as indicated and click Next. You will be taken to the next sign-up page. 5. Create a [employer] ID. This will be your [employer] login ID and cannot be changed, so think of one that is secure and easy to remember. 6. Create a [employer] password. You can change your password at any time. 7. Enter your Security Question and Answer. This can be used at a later time if you forget your password. Click Next. 8. Enter your e-mail address. You will receive e-mail notification when new information is availablein [employer]. 9. Click Sign In. You can now view your medical record. Additional Information If you have questions, you can call [phone] to talk to our [employer] staff. Remember, [employer] is NOT to be used for urgent needs. For medical emergencies, dial 911. E LAYER documented in this encounter Progress Notes Delfina Knox MD - 08/29/2016 10:29 AM CST NAME: LIANA ABURTO MR#: [id number] CSN: [id number] AUTHENTICATING CLINICIAN: Delfina Knox MD CONFIRM #: [id number] LOC: 527 CLINIC PROGRESS NOTE DATE OF VISIT: 08/29/2016 : 1985 Liana is a 30-year-old, history of melanoma left breast, 0.39 mm in depth, 2008. History of a probable thin melanoma left anterior leg 2000, 0.19 mm in size. History of a severely dysplastic nevus leftforehead, 2nd toe right foot. We have a picture of a mole, she thinks it is getting larger. She has a fibrotic compound nevus right upper arm. She has deodorant allergy, and Cleocin lotion has been helpful until these last few weeks. It is getting itchy down there. She has had a severely dysplastic nevus left midlateral back that I reexcised. She has had a moderately dysplastic nevus left upper back.Vitamin D in 2013 was 22. She is on vitamin D. She has a mole on the back of the left popliteal fossa, she thinks has doubled in size. EXAMINATION: Today, including scalp, face, neck, chest, back, abdomen, buttocks, groin, arms, legs, hands, feet, and nails, perirectal and pubic area: I felt no lymphadenopathy in the neck, supraclavicular, infraclavicular, axillary. She does have a little freckling on the right yazidi I photographed to watch. Shehas a compound nevus on the right neck with a little pigmentation off to the side, I photographed towatch. Her 2nd toe right foot, to me, does not appear to have gotten larger. It is medium brown to dark brown, but it is normal pattern. It has no inflammation. I offered to remove it. She feels like, since I do not think it has changed, she will watch it. I rephotographed with a meter stick sitting next to it. Left popliteal fossa, I have no picture of this. It is a large, 1.2 x 0.7 mm nevus that isash leaf shaped. It has some pinkness or oranginess to it. There are dots around the periphery and kind of linear pattern otherwise. I think it should be removed. ASSESSMENT: Rule out severely dysplastic nevus with history of melanoma. PLAN: The left popliteal fossa was anesthetized with 1% lidocaine with epi at 1:100,000, sterilely preppedand draped. Plug biopsy, 1 cm, removed it all as I stretched it out. 4-0 Vicryl stitch placed in thesubcutaneous and dermal tissue, and then 5-0 Ethilon superficially x3. Pressure dressing applied. Wound care instructions given verbally. The mole on the 2nd toe we will follow. I will see her back in 6 months, sooner if there are questions or concerns. Continue excellent sun protection. 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 ? COMMENT: ??This nevus has architectural and cytologic features ? overlapping between Spitz and moderate to severely dysplastic ? nevi. A broad junctional components extends beyond the dermal ? portion of the lesion with bridging and focal confluence of ? junctional melanocytes. ??Melan-A and MITF highlight nested ? melanocytes along the dermal-epidermal junction and in the ? underlying dermis. ??Prominent pagetoid spread is not observed. ? Melanocytes stain positive with p16. The lesion is not present ? at any of the tissue margin in planes of section examined. ??If ? pigment persists or recurs at this site, complete removal is ? advised. This case was reviewed by a second board-certified ? dermatopathologist, Dr. Nash Omalley, who concurs with the ? diagnosis. Pt informed on voicemail. Has f/u in 6 months. VLV:MEDQ C: CONFIRM #: [id number] E LAYER Maddy Chapman MA - 08/29/2016 10:08 AM CST Images from the original note were not included. 1. Right 2nd toe - follow 2. Left popliteal fossa - biopsy 3. Right neck - follow 4. Right yazidi - follow E LAYER documented in this encounter Plan of Treatment Upcoming Encounters Date Type Specialty Care Team Description 05/18/2022 Appointment Rheumatology Erasmo Horn MD [address] [facility] [place] [address] (Wo rk) documented as of this encounter Procedures Procedure Name Priority Date/Time Associated Diagnosis Comme nts SURGICAL PATH, PARK Routine 08/29/2016 6:00 AM Re sults for this [facility] STONE LAYER procedure are i n the results section. documented in this encounter Results Pathology Report (08/29/2016 6:00 AM STONE LAYER) [facility] gist Method Time Signature Path: FINAL DERMATOPATHOLOGY REPORT PN SOFT Pathology #: [id number] ? Date Obtained: 08/29/2016 ?Date Received: 08/30/2016 DIAGNOSIS: ?Skin, left popliteal fossa, punch biopsy: ?- Compound dysplastic melanocytic nevus with spitzo id atypia, ?narrowly free of margin. ? COMMENT: ??This nevus has architectural and cytologic features ? overlapping between Spitz and moderate to severely dysplastic ? nevi. A broad junctional components extends beyond the dermal ? portion of the lesion with bridging and focal conf luence of ? junctional melanocytes. ??Melan-A and MITF highlig ht nested ? melanocytes along the dermal-epidermal junction an d in the ? underlying dermis. ??Prominent pagetoid spread is not observed. ? Melanocytes stain positive with p16. The lesion is not present ? at any of the tissue margin in planes of section e xamined. ??If ? pigment persists or recurs at this site, complete removal is ? advised. This case was reviewed by a second board- certified ? dermatopathologist, Dr. Nash Omalley, who concur s with the ? diagnosis. ?MEAGAN PHAN MD ? (electronic signatur e) ? 09/04/2016 ??16:3 3 CLINICAL NOTES: ?Rule out SDN ORGAN/TISSUE SITE: ?L popliteal fossa GROSS DESCRIPTION: ?Received in a formalin-filled container labeled chago tolbert the ?patient's name is an 8 x 8 x 6 mm punch biopsy of s kin. ??The ?specimen is marked with green ink, bisected and sub mitted ?entirely in one cassette. ?da ? BLOJE MICROSCOPIC DESCRIPTION: ?Microscopic examination performed. Technical component performed at: [facility], [address], [place] [address] Professional component performed at: [facility], [address] [place] [address] Specimen Anatomical Collection Method Collection Time Receive d Time (Source) Location / / Volume Laterality SKIN PUNCH BIOPSY 08/29/2016 6:00 AM 10/2016 6:00 SPECIMEN / Unknown STONE LAYER AM STONE LAYER Delfina Knox MD LAB_1 Performing Organization Address City/State/ZIP Code Phon e Number PN SOFT [address] [place] [address] documented in this encounter Visit Diagnoses Diagnosis Sun-damaged skin - Primary 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
--- OUTSIDE RECORDS SUMMARY | 2022-05-17 08:29 | XMS_ITS | Encounter Summary ---
:1985 Author Organization [email or web address] Address [address] [place] [address] Care Team Providers Name Role Phone Liana Tovar MD Primary Care Provider Reason for Referral Consult/Transfer Care (Routine) - New Request Specialty Diagnoses / Procedures Referred By Contact Refer red To Contact Diagnoses Melanoma in situ, unspecified site (HRC) [place] [address] [place] [address] Referral ID Status Reason Start Date Expiration Date Visits V isits Requested Authorized [id number] New Request 02/21/2021 05/23/2022 1 1 Scheduling Instructions Your provider has recommended an appoint ment with [facility]. You may call [phone] to schedule yo ur appointment. This recommended service/s may not be covered by your insurance [facility]. To find out your specific benefit coverage, please call the number on your insurance card. Encounter Details Date Type Department Care Team Description 02/21/2021 Notes/Orders Delfina Orta, Melanoma in situ, Dermatology unspecified site [address] [facility] [address] [address] ([facility]) (Primary Dx) [place] [address] [place], [place] [phone] (Wo rk) Social History Tobacco Use Types [...] documented as of this encounter Progress Notes Iwona Suarez RN - 02/21/2021 7:25 AM CDT Images from the original note were not included. Mohs / Derm Surg Referral Site 1: Site 2: Site 3: Site 4: Site Left Flank, punch: Diagnosis Melanoma in situ Size (optional) <1 cm 1-2 cm >2 cm Special Considerations for this site Photos (Copy & Paste or type No Photo): How was pt informed? (ex: left msg, spoke with pt): Dr. Mccray spoke with patient Home address : [address] [place], [place] [id number] Is this the patient's first derm surg referral?: No Best Number/Person to Call: [phone] (home) Remember, if contacting someone besides the pt, make sure we have a verbal disclosure on file for that person. Notes (such as mobility requirements, preferred surgeon or location, scheduling considerations, etc.): Ladi Galvez MD - 02/21/2021 7:25 AM CDT Urgent. Melanoma in situ excision (not Mohs slot). Derm surg or general derm. If scheduled with me, then end of morning or end of afternoon or two consecutive slots or an open MG excision slot. Ladi Galvez MD - 02/21/2021 7:25 AM CDT Urgent. Melanoma in situ excision (not Mohs slot). Derm surg or general derm. If scheduled with me, then end of morning or end of afternoon or two consecutive slots or an open MG excision slot. Ladi Galvez MD 02/21/2021, 11:27 PM Halle Arias MD - 02/21/2021 7:25 AM CDT Urgent. Excision. Halle Arias MD 02/22/2021, 10:06 AM Tess Flowers MD - 02/21/2021 7:25 AM CDT Urgent excision 1.0 lives in [facility] Mandeep Hurt - 02/21/2021 7:25 AM CDT Scheduled pt with KL on 03/[address] [facility]. documented in this encounter Plan of Treatment Upcoming Encounters Date Type Specialty Care Team Description 05/18/2022 Appointment Rheumatology [facility]asmo Horn MD [address] [facility] [place] [address] (Wo rk) Scheduled Referrals Name Type Priority Associated Diagnoses Order S chedule Dermatology Surgery/Mohs Referral Routine Melanoma in situ , Ordered: 02/21/2021 Consult Adult unspecified site (HRC) documented as of this encounter Visit Diagnoses Diagnosis Melanoma in situ, unspecified site ([facility]C) - Primary documented in this encounter Care Teams Water Superintendent Relationship Specialty Start Date End Date Liana Tovar MD PCP - General 03/08/[address] [place] [address] documented as of this encounter
--- OUTSIDE RECORDS SUMMARY | 2022-05-17 08:29 | XMS_ITS | Encounter Summary ---
:1985 Author Organization [employer] Address [address] [place] [address] Care Team Providers Name Role Phone Liana Tovar MD Primary Care Provider Reason for Visit Reason Comments Skin Check Encounter Details Date Type Department Care Team Description 09/05/2018 Office Visit Delfina Orta, Swapna riddle skin (Primary Dx); Dermatology Perioral dermatitis; [address] [address] [place] Seborrheic keratosis; [place] [address] [place], [place] Skin exam for malignant neop lasm; [phone] Personal history of malignant melanoma o f skin; [phone] (Wo rk) History of dysplastic nevus Social [...] Patient Instructions Patient InstructionsIwona Suarez RN - 09/05/2018 9:45 AM CST 1. Clothing and shade are the best for sun protection. 2. Use sunblock with zinc in it. See below for Dr. Mccray's sunblock recommendations. 3. Perioral Dermatitis: Make sure that you are moisturizing the area frequently. Good Moisturizers: Eucerin Eczema or Vanicream Use Clindamycin Lotion (Cleocin) on face once to twice a day. Prescription sent to your pharmacy. Toothpaste: Use plain label toothpaste. Use on without whitening You can use a sulfate free toothpaste ([employer] [place]) You can even just use Baking Soda. DIRECT PHONE NUMBER: TIMMY [phone]. FEEL FREE TO CALL WITH ANY QUESTIONS [...] ZINC. -VANICREAM SPF 30 OR 50 -SEAN (also available in spray-Sun Sheild Clear [place] SPF 30) AVAILABLE AT [employer] -PACIFICA MINERAL SUNSCREEN AVAILABLE AT [employer] -CELY AVAILABLE AT [employer] OR [employer] -BLUE LIZARD FOR SENSITIVE SKIN -BULLFROG SUNSCREEN -TERRASPORT OR AQUASPORT WHICH ARE AVAILABLE AT [employer] OR ONLINE. *MORE ELEGANT SUNSCREENS WITH ZINC IN IT: -JUICE BEAUTY SPF 30 TINTED MINERAL MOISTURIZER FOR FACE -JUICE BEAUTY SPORT SPF 30 SPORT SUNSCREEN -BEAUTY COUNTER ALL MINERAL SUNSCREEN STICK, LOTION OR SPRAY -BEAUTY COUNTER DEW SKIN MOISTURIZING COVERAGE FOR FACE -CLINIQUE CITY BLOCK SHEER SPF 25 (NOT CLINIQUE SUPER CITY BLOCK SPF 40) -MCKENNA HILTON WHICH IS AVAILABLE AT [employer] *Avoid sunscreens with oxybenzone, parsol 1789 (avobenzone) [...] FOR THE SKIN. *FOR EXAMPLE: -CERA VE LOTION -EUCERIN PROFESSIONAL REPAIR -EUCERIN ECZEMA RELIEF -EUCERIN SMOOTHING ESSENTIALS -GOLD MCKEON ECZEMA CARE -CUREL LOTION. *BEST TO APPLY THESE RIGHT AFTER A SHOWER OR BATH IN ADDITION TO YOUR DAILY USE D REPRESENTATIVE/HEALTH EDUCATION documented in this encounter Progress Notes Delfina Knox MD - 09/05/2018 12:00 PM CST NAME: LIANA JUAREZ MR#: [id number] CSN: [id number] AUTHENTICATING CLINICIAN: Delfina Knox MD CONFIRM #: [id number] LOC: 527 CLINIC PROGRESS NOTE DATE OF VISIT: 09/05/2018 : 1985 SUBJECTIVE: Liana is a 32-year-old I have known for several years. She has had a melanoma in 2008 on the left breast, 0.39 mm in depth. She has had a second melanoma left anterior lower leg 2009 or 2010, 0.19 mm in depth. History of severely dysplastic nevus left forehead, and a Spitz nevus behind the left knee. Did remove a mole on the 2nd toe on the right that just was a compound benign nevus; it healed nicely. She does have rheumatoid arthritis. She gets swollen, tender, red elbows that come and go. She has no rash there now. She does not know of anything she is worried about, but she hates that she gets this rash on the corner of her mouth on the right side that will not clear. She had it a little bit on the left side the last time. She had to take the whole dose of doxycycline to clear it. She does use toothpaste and brushes from the right side. OBJECTIVE: Full-body exam today, including scalp, face, neck, chest, back, abdomen, buttocks, groin, arms, legs, hands, feet, and nails, perirectal and pubic area. Very fair skin, blonde haired, pink skin. A sherman on the left cheek, and a couple cherries on the legs, chest, and back; 1 is purple on the right leg, the matching 1 on the left is pink. The scar on the 2nd toe on the foot is well healed with no sign of recurrence. She does carry some reddish brown nevi on the mons pubis, the buttocks, chest, and back, but nothing that look worrisome. She does have a couple dermatofibromas here and there as well. She has irritation and papules coalescing into a scaly patch on the right side of the mouth. ASSESSMENT: Perioral dermatitis, history of melanoma, mildly dysplastic nevi remaining, if any, dysplasia, sherman hemangiomas. PLAN: No lymphadenopathy was found in the neck, supraclavicular, infraclavicular, axillary, nor groin region. Perioral dermatitis was discussed at length, and good moisturization, doxycycline if we need it, but first, we will try Cleocin lotion as she has a metronidazole allergy. Ros is her daughter; sheis 16 months old and doing very well. We talked about when she should first be seen as well. The elbow inflammation, to me, sounds more like rheumatoid arthritis, but she will talk to her asphalt distributor tender today. She will call me if it occurs, and I will bring her in and take a look. VLV:MEDQ C: CONFIRM #: [id number] D REPRESENTATIVE/HEALTH EDUCATION documented in this encounter Plan of Treatment Upcoming Encounters Date Type Specialty Care Team Description 05/18/2022 Appointment Rheumatology Erasmo Horn MD [address] [facility] [address] (Wo rk) documented as of this encounter Visit Diagnoses Diagnosis Sun-damaged skin - Primary Other chronic dermatitis due to solar ra diation Perioral dermatitis Rosacea Seborrheic keratosis Other seborrheic keratosis Skin exam for malignant neoplasm Screening for malignant neoplasm of the skin Personal history of malignant melanoma o f skin History of dysplastic nevus Personal history of diseases of skin and subcutaneous tissue documented in this encounter Care Teams Logistics Supervisor Relationship Specialty Start Date End Date Liana Tovar MD PCP - General 03/08/[address] [place] [address] documented as of this encounter
--- OUTSIDE RECORDS SUMMARY | 2022-05-17 08:29 | XMS_ITS | Encounter Summary ---
:1985 Author Organization [facility] Address [address] [place] [address] Care Team Providers Name Role Phone Liana Tovar MD Primary Care Provider Encounter Details Date Type Department Care Team Description 07/23/2019 Lab Visit [facility] Irritable bowel syndrome, [address] unspecified type [place], [place] [address] Social History Tobacco Use Types Packs/Day Years [...] Description 05/18/2022 Appointment Rheumatology Erasmo Horn MD [address] [address] (Wo rk) documented as of this encounter Procedures Procedure Name Priority Date/Time Associated Comments Diagnosis GLIADIN (DEAMIDATED) Routine 07/23/2019 12:26 Irritable bowel Results for this ANTIBODIES IGG AND IGA PM [employer] syndrome, proce dure are in unspecified type the results section. TISSUE TRANSGLUTAMINASE Routine 07/23/2019 12:26 Irritable bow el Results for this AB IGA PM [employer] syndrome, procedure are i n unspecified type the results section. CELIAC DISEASE REFLEX Routine 07/23/2019 12:26 Irritable bowel Results for this WITH IGA PM [employer] syndrome, procedure are i n unspecified type the results section. documented in this encounter Results Tissue Transglutaminase Ab IgA (07/23/2019 12:26 PM [employer]) [facility] Cimetrix Method Time Signature Tissue <1.0 0.0 - 6.9 07/25/2019 [place] Transglutaminase U/mL 12:12 PM [facility] Antibody, IgA [employer] Tissue Negative Negative 07/25/2019 [place] Transglutaminase 12:12 PM [facility] Antibody, IgA [employer] Interpretation Specimen Anatomical Collection Method / Collection Time Recei jules Time (Source) Location / Volume Laterality Blood Venipuncture / 07/23/2019 12:26 9 Unknown PM [employer] [employer] [facility] 12:26 PM [employer] Delfina Knox MD LAB_1 Performing Organization Address City/[facility] Phon e Number [place] [facility] [address] [address] Celiac Disease Reflex Panel IgA (07/23/2019 12:26 PM [employer]) [facility] Cimetrix Method Time Signature IgA, Serum 84 65 - 421 07/28/2019 [place] mg/dL 8:22 AM [facility] [employer] Tissue <1.0 0.0 - 6.9 07/28/2019 [place] Transglutaminase U/mL 8:22 AM [facility] Antibody, IgA [employer] Tissue Negative Negative 07/28/2019 [place] Transglutaminase 8:22 AM [facility] Antibody, IgA [employer] Interpretation Specimen Anatomical Collection Method / Collection Time Recei jules Time (Source) Location / Volume Laterality Blood Venipuncture / 07/23/2019 12:26 9 Unknown PM [employer] 12:26 PM [employer] Delfina Knox MD LAB_1 Performing Organization Address City/[facility] Phon e Number [facility] [address] [address] Gliadin (Deamidated) Antibodies IgG and IgA (07/23/2019 12:26 PM [employer]) [facility] Method Time Signature Gliadin Antibody, <1.0 0.0 - 6.9 07/28/2019 [facility] IgA Result U/mL 8:22 AM [facility] [employer] Gliadin Antibody, Negative Negative 07/28/2019 [facility] IgA 8:22 AM [facility] Interpretation [employer] Gliadin Antibody, <1.0 0.0 - 6.9 07/28/2019 [facility] IgG U/mL 8:22 AM [facility] [employer] Gliadin Antibody Negative Negative 07/28/2019 [facility] IgG, 8:22 AM [facility] Interpreation [employer] Specimen Anatomical Collection Method / Collection Time Recei jules Time (Source) Location / Volume Laterality Blood Venipuncture / 07/23/2019 12:26 9 Unknown PM [employer] 12:26 PM [employer] Delfina Knox MD LAB_1 Performing Organization Address City/State/ZIP Code Phon [facility] [address] [address] documented in this encounter Visit Diagnoses Diagnosis Irritable bowel syndrome, unspecified ty pe documented in this encounter Care Teams Scrap Baller Relationship Specialty Start Date End Date Liana Tovar MD PCP - General 03/08/15 [address] [place] [address] documented as of this encounter
--- OUTSIDE RECORDS SUMMARY | 2022-05-17 08:29 | XMS_ITS | Encounter Summary ---
:1985 Author Organization [facility] Address [address] [place] [address] Care Team Providers Name Role Phone Liana Tovar MD Primary Care Provider Reason for Referral Procedure/Equipment (Routine) - Closed Specialty Diagnoses / Procedures Referred By Contact Refer red To Contact Diagn[place] [address] [place] [address] Referral ID Status Reason Start Date Expiration Date Visits Requ ested Visits Authorized [id number] Closed 02/09/2021 05/11/2022 1 1 Scheduling Instructions Your provider has recommend an appointme nt with [facility]. We will be calling to schedule t his appointment after reviewing your records. Please call [phone] to schedule you r appointment. Reason for Visit Reason Comments RASH Encounter Details Date Type Department Care Team Description 02/09/2021 Office Visit Delfina Orta, Neoplasm of skin (Primary Dx); Dermatology Dermatitis; [address] [address] [address] [place]; [place] [address] [place] Rash; [phone] [address] Dysplastic nevi [phone] (Wo rk) Social History Tobacco Use Types [...] Patient Instructions Patient InstructionsIwona Suarez RN - 02/09/2021 11:45 AM CDT 1. Clothing and shade are the best for sun protection. 2. Use sunblock with zinc in it. See below for Dr. Mccray's sunblock recommendations. DIRECT PHONE NUMBER: [facility] [phone]. FEEL FREE TO CALL WITH ANY QUESTIONS OR CONCERNS YOU MAY HAVE. SUNBLOCK: PREFER CLOTHING OVER SUNSCREEN. WHEN USING SUNSCREEN, PREFER SUNBLOCKS THAT ARE ZINC BASED AND ARE AT LEAST 5% ZINC. -VANICREAM SPF 30 OR 50 -CERAVE MINERAL SUNSCREEN -CELY AVAILABLE AT [employer] OR [employer] -BLUE LIZARD (FOR SENSITIVE SKIN OR BABY) -BULLFROG SUNSCREEN -TERRASPORT OR AQUASPORT WHICH ARE AVAILABLE AT [employer] OR ONLINE. -AVEENO MINERAL SUNSCREEN (AVAILABLE AT [employer]) *MORE ELEGANT SUNSCREENS WITH ZINC IN THEM: -BABO SUNSCREEN (AVAILABLE AT [employer] OR ONLINE) -SEAN AVAILABLE AT [employer] -PACIFICA MINERAL SUNSCREEN AVAILABLE AT [employer] -ESPERANZA-POSAY ANTHELIOS 50 MINERAL ULTRA LIGHT ([facility] OR ONLINE) -JUICE BEAUTY SPF 30 TINTED MINERAL MOISTURIZER FOR FACE -JUICE BEAUTY SPORT SPF 30 SPORT SUNSCREEN -BEAUTY COUNTER ALL MINERAL SUNSCREEN STICK, LOTION OR SPRAY -BEAUTY COUNTER DEW SKIN MOISTURIZING COVERAGE FOR FACE -CLINIQUE CITY BLOCK SHEER SPF 25 (NOT CLINIQUE SUPER CITY BLOCK SPF 40) -MCKENNA HILTON WHICH IS AVAILABLE AT [employer] *Avoid sunscreens with oxybenzone, parsol 1789 (avobenzone) and octinoxate. ENVIRONMENTAL WORKING GROUP: [email or web address] THIS WILL LIST SUNSCREENS WITH FEWER CHEMICALS IN THEM THINK [facility] THIS WILL LIST PRODUCTS WITH FEWER CHEMICALS IN THEM VITAMIN D-3 RECOMMENDATIONS: - TAKE VITAMIN D [...] MUSCLES, BONES AND BRAIN HEALTH. RECOMMENDED LOTIONS: -CERAVE CREAM -AVEENO Care Instructions after a Skin Biopsy/Surgery When [...] the site. Please call the clinic at [phone] if you experience any of these symptoms. When should my sutures be removed? Please schedule your nurse appointment at the front desk host for the suture removal within 10-14 days. [...] within 2 weeks, please call us at [phone]. Patch Testing Your doctor has referred you for patch testing. Patch testing is a week long process of testing for skin allergy (compounds that cause a rash when contacting the skin). Scheduling and Appointment Information 1. Our clinic will receive an electronic referral from your doctor. You do not need to call the clinic at this time. We will call you to schedule within 2 weeks of receiving the electronic referral. Ifyou have not heard from our clinic within 2 weeks, please feel free to call and leave a message. 2. When we call, we will provide extra details and this will also be sent in a letter but an overview is provided below. Three appointments within one week are required. What to Expect The First Appointment (up to 3 hours) ??? It is very important that you to bring all personal products. o Please bring any hgqk-khh-gbfnsdv (antibiotic ointment, anti-itch creams, essential oils) or prescription creams or lotions which you are presently using or have used in the past, even if it has layo while. o Empty tubes, bottles, and boxes are still useful so that we can look at ingredients on the labels. ??? If you suspect any articles that you contact at work, please bring a sample of each on your first visit. ??? Patches will be applied to your back. We may need to use your arms, chest, or thighs as well. Once the patches are in place, we will cover them with a hypoallergenic tape and they will stay in place until the second appointment. The Second Appointment (45 minutes to 1 hour) ??? We will remove the patches and will karthik around the edges with a dark pen. ??? Some of the ink used to karthik the edges of the testing area may rub off on clothing and furniture. Please wear old clothes during the testing. The Third Appointment (1 to 1.5 hours) ??? The doctor will perform a final reading of your patch testing and will have an in-depth discussion with you about your reactions/test results and treatment plan options. ??? We will tell you what you can and cannot use or do going forward. Guidelines for the Week ??? This should be a very low diaz week and we ask that you avoid any activities that will cause sweating. ??? You will not be able to bathe or shower for the entire week of testing but you may take sponge baths as long as the testing areas are kept dry ??? While the patches are in place (first two days): o You will not be able to wear a bra for the first two days - Wearing a camisole without built in bra is okay o You cannot wash your own hair for the first two days - We do not want you to raise hands over head or lean over tub or sink. - You may lean back over a sink to have someone wash your hair as if you were in a hair salon. o No bending, lifting, reaching, or twisting for the first two days! We want you to keep your trunk and arms fairly still while the patches are in place. If this impacts your job duties, you may need to take time off of work for the first two days. Insurance ??? Insurance companies generally pay most of the charges for patch testing but you should check your own policy. Please do this at least one month prior to your appointment ??? Information: Procedure code: 31374 ICD-10 Code: Dermatitis L30.9 Medications & Exposures ??? If you are on medication by mouth called prednisone, please let the contact dermatitis clinic know this when you make the appointment. ??? If you are on immunosuppressant medications (e.g. Cellcept, Cyclosporine, or Methotrexate) or Dupilamab, please let the contact dermatitis clinic know this when you make the appointment. ??? Avoid sunlight, tanning booths, light treatments to the back for 2 weeks, 1 week minimum, prior to testing. ??? You are able to take anti-histamines by mouth before and during the testing if needed. documented in this encounter Progress Notes Delfina Knox MD - 02/09/2021 11:45 AM CDT Discussed with patient- will need further surgery- offered appointment this week but camping this weekend- I am out of town next week so will ask derm surgery if they have opening. Delfina Knox MD - 02/09/2021 12:00 AM CDT NAME: LIANA ABURTO CSN: [id number] CLINIC NOTE DATE OF SERVICE: 02/09/2021 : 1985 Liana is a 35-year-old here for itchy armpits, did a biopsy of these bumps in the right axilla thinking that was related but it actually came up kind of a granuloma and I think it is more of milial cyst granulomas, although she still has some milial bumps in that right axilla at the lines of the axilla. I do not think that is what is making her itchy. The itchiness is more at the periphery of the axilla, like the end of where sweat ends. She did try to go to antiperspirant only, had to get a man's, it was not helpful. She uses CeraVe bar soap only. She tries not to scratch. She uses Tide Free and just drier attendant balls. She is really not itchy elsewhere. She does have a nickel sensitivity and low nickeldiet did not seem to help the itch either. EXAMINATION: She has a few little milia in the right axilla. She has a very ill- defined faint pinkness along the periphery of the axilla and then behind the axillary vault on the right side only a little bit of lichenification and bumpiness, kind of irritant dermatitis, almost an early LSC. The left axillary line or left flank, she does have a mole that has caught her attention, caught my attention as well, brown but kind of orangy-brown, ill-defined, pinkness underneath it, but not juicy in appearance, about 7 mm in size. She has a little antonio today on her arms, shoulders and chest. She has had melanomas in the past. She also has had rheumatoid arthritis since age 19. ASSESSMENT: Axillary itching and now almost a lichen simplex chronicus and rule out severely dysplastic nevus. PLAN: We will try Cleocin lotion on 1 arm for the antibacterial component and get her off deodorant under the left axilla, see if that helps at all and then the right axilla will try Almay deodorant, which she would have to get online at [employer]. Continue Tide Free soap. Continue CeraVe soap. Do not wash off anything in the middle of the day as she has been doing so that we are not irritating that skin at all and triamcinolone 0.1% cream at bedtime for 2 weeks to see if we can calm it down, no longerthan that. We talked about why. I will order patch testing. I am just not sure why she is so itchy and it is not an all over itch, it is really just the axilla, but the rash itself is not interesting and very, very mild. She is not perimenopausal. Sometimes I will see terrible axillary itching perimenopausal. She does not know about any seasonal allergies and this has been going on through a couple seasons, but we will still put her on Zyrtec at night as well. Photograph was taken of the left flank mole. With her permission, 1% lidocaine with epi at 1:100,000 was injected. An 8 mm plug removed the whole thing. The 5-0 Ethilon stitches placed, pressure dressing applied. Wound care instructions as above for the itch and did put in a contact patch testing request. I will see her back in usual followup. I do not think we made today, but I will call her with results and we will make plans from there. FINAL DIAGNOSIS A. Skin, Left Flank, punch: - Melanoma in situ Histologic subtype: not otherwise specified Regression: not observed Associated melanocytic nevus: present (compound dysplastic melanocytic nevus with severe atypia) Margins: Involved, melanoma in situ is present at peripheral margin AJCC Stage (AJCC Guidelines 2017) Primary Tumor (T): Tis Regional Lymph Nodes (N): N/A Distant Metastasis (M): N/A COMMENT: EXCISION IS ADVISED in accordance with melanoma care clinical guidelines. Dr. Knox, the referring clinician, will be informed through the established Department of Dermatology protocol. Thiscase was reviewed with Dr. Ashleigh Machado who concurs with the diagnosis. ?? Discussed with Liana- need to wait until after holiday weekend and I am out of town that week so will ask derm surgery if they can do the excision. Isaac put in request. MD KALEB RIDER/JAVIER /[id number] documented in this encounter Plan of Treatment Upcoming Encounters Date Type Specialty Care Team Description 05/18/2022 Appointment Rheumatology Erasmo Horn MD [address] [facility] [place] [address] (Wo rk) Scheduled Referrals Name Type Priority Associated Diagnoses Order S chedule Patch Test Referral Referral Routine Dermatitis Ordered: 02/09/2021 documented as of this encounter Procedures Procedure Name Priority Date/Time Associated Comments Diagnosis SKIN BIOPSY Routine 02/09/2021 11:48 Neoplasm of skin Results for this AM CDT procedure are i n the results section. SURGICAL PATHOLOGY, Routine 02/09/2021 11:48 Neoplasm of skin Results for this DERMATOLOGY AM CDT procedure are i n the results section. documented in this encounter Results Skin Biopsy (No CPT) (02/09/2021 11:48 AM CDT) Narrative EXTERNAL RESULTS - 02/09/2021 11:48 AM C DT Type of biopsy: tangential ?? Delfina Knox MD DERM PROCEDURE ORDERABLES Performing Organization Address City/State/ZIP Code Phon e Number EXTERNAL RESULTS Surgical Path, Dermatology (02/09/2021 11:48 AM CDT) Component Value Ref Test Analysis Performed At [facility] gist Range Method Time Signature Case Report Surgical Pathology Report ? Case: [id number] ? 02/18/2021 [facility]00 Authorizing Provider: ??Delfina Bowman MD ? Collected: ? 02/09/2021 1148 ? 10:06 AM DERMATO LOGY Ordering Location: ? [facility] Dermatology ? Received: ?02/10/2021 1134 ? CDT Pathologist: ? Elmo Phan MD ? Specimen: ?Skin, Left Fl ank ? FINAL A. Skin, Left Flank, punch: 02/18/2021 S [facility] 3800 Electronically DIAGNOSIS - Melanoma in situ 10:06 AM DERMATOLOGY signed by Sylvester, Histologic subtype: not otherwise specified CDT Elmo Sue MD on Regression: not observed 02/18/2021 at Associated melanocytic nevu s: present (compound dysplastic melanocytic nevus with severe atypia) 10:06 AM Margins: Involved, melanoma in situ is present at periphera l margin AJCC Stage (AJCC Guidelines 2017) Primary Tumor (T): Tis Regional Lymph Nodes (N): N/A Distant Metastasis (M): N/A COMMENT: EXCISION IS ADVISED in accordance with melanoma care clinical guidelines. Dr. Knox, the referring clinician, will be informed through the established Department of Dermatology protocol. This case was reviewed with Dr. Ashleigh Machado who concurs with t susan diagnosis. Clinical Differential Diagnosis: r/o dn [facility] 3800 Information 10:06 AM DERMATOLOGY CDT Microscopic Microscopic examination is performed. 02/18/2021 [facility] [address] Description The pathologic process is th at of a broad proliferation of confluent individual and irregularly nested junctional melanocytes colliding with a compound proliferation of smaller nested melanocytes. The j 10:06 AM DERMATOLOGY unctional proliferation exte nds well beyond the dermal component in an asymmetric fashion. Pigment incontinence is present in the dermis. Melan-A and Sox-10 highlight the melanocyte proliferation, parti C DT cularly the confluent juncti onal component. Both populations of lesional melanocytes stain positive with p16. The compound proliferation of smaller melanocytes corresponding to dysplastic nevus is free of the sampled margin. The c onfluent junctional proliferation extends to the peripheral tissue margin. Special Stains The stain controls have been reviewed and stain appr opriately. 02/18/2021 [facility] 3800 10:06 AM DERMATOLOGY CDT Gross A: 02/18/2021 [facility] [address]00 Description Received in formalin, labele d with the patient's name and Skin, Left Flank is a 7 x 7 x 8 mm punch biopsy of skin. The specimen is marked with abe ink, bisected, and submitted entirely in one cassette. NW 10:06 AM DERMATOLOGY CDT Embedded 02/18/2021 [facility] [address]00 Images 10:06 AM DERMATOLOGY CDT Specimen Anatomical Collection Method Collection Time Receive d Time (Source) Location / / Volume Laterality Skin (Skin) 02/09/2021 11:48 02/10/2021 AM CDT 11:34 AM CDT Comment: Differential Diagnosis: r/o dn Delfina Knox MD LAB PATHOLOGY Performing Organization Address City/State/ZIP Code Phon e Number [facility] [address] [facility] [address] [place], [place] [address] documented in this encounter Visit Diagnoses Diagnosis Neoplasm of skin ([facility]) - Primary Neoplasm of unspecified nature of bone, soft tissue, and skin Dermatitis Contact dermatitis and other eczema, due to unspecified cause Pruritus Unspecified pruritic disorder Rash Rash and other nonspecific skin eruption Dysplastic nevi Benign neoplasm of skin, site unspecifie d documented in this encounter Care Teams Coiled Coil Inspector Relationship Specialty Start Date End Date Liana Tovar MD PCP - General 03/08/15 [address] [place] [address] documented as of this encounter
--- OUTSIDE RECORDS SUMMARY | 2022-05-17 08:29 | XMS_ITS | Encounter Summary ---
:1985 Author Organization [employer] Address [address] [place] [address] Care Team Providers Name Role Phone Manjit Tovar MD Primary Care Provider Reason for Visit Reason Comments SLEEP WALKING waking in sleep screaming Encounter Details Date Type Department Care Team Description 08/18/2016 Office Visit [facility] Suzanna Martínez M D Sleep concern (Primary Medicine [id number]) [address] [place] [phone] Social History Tobacco Use Types Packs/Day Years [...] Sign Reading Time Taken Comments Blood Pressure 120/60 08/18/2016 1:07 PM CHANNEL LAYER Pulse 56 08/18/2016 1:07 PM CHANNEL LAYER Temperature - - Respiratory Rate 16 08/18/2016 1:07 PM CHANNEL LAYER Oxygen Saturation - - Inhaled Oxygen Concentration - - Weight 86.6 kg (191 lb) 08/18/2016 1:07 PM CHANNEL LAYER Height 156.8 cm (5' 1.75) 08/18/2016 1:07 PM CHANNEL LAYER Body Mass Index 35.22 08/18/2016 1:07 PM CHANNEL LAYER documented in this encounter Progress Notes Suzanna Martínez MD - 08/18/2016 2:24 PM CST NAME: MANJIT JUAREZ MR#: [id number] CSN: [id number] AUTHENTICATING CLINICIAN: Suzanna Martínez MD CONFIRM #: [id number] LOC: 4402 CLINIC PROGRESS NOTE DATE OF VISIT: 08/18/2016 : 1985 SUBJECTIVE: [age]-year-old female. She is coming today to clinic with a concern about nightmare or night terror 30 minutes after she goes to sleep. According to the patient, she is on Toprol-XL 50 mg onceagain. It was started by her primary doctor for migraines. She was having some palpitations. She went to a cafe aide. [employer] improved it or increased it to 50 mg a day. According to the patient, still she has taken only 25 mg, and as soon as she goes to sleep, 30-40 minutes after that she is screaming, and she has kind of night terror or nightmare, and her will come and wake her up or shake her, then she goes to sleep without any problem through the whole night. According to the patient, she does not recall her waking her up at night. On waking up during the day she feels rested. She has no other concern or complain besides that. Now one of the side effects of the beta leigh that can cause some issue with sleeping being documented, and the patient also did read about that. Also, she does not want to stop it completely because she did not like the heart palpitation thatshe had before that. It helped for migraine, has helped for palpitation, and feels better with it. 2.Also, according to the patient, she is not using any control protection. She is not looking for , but if it happened also, she would not mind it. Again, beta leigh with the . REVIEW OF SYSTEMS: Above, otherwise her HEENT, neck, lungs, cardiovascular, GI, skeletal, muscle negative. OBJECTIVE: VITAL SIGNS: Stable. Blood pressure 120/60. Pulse 56. Respirations 16. Her body mass index is 35.29. Alert, oriented, no distress. The rest of her HEENT negative. NECK: Negative. LUNGS: Negative. CARDIOVASCULAR: Negative. ASSESSMENT: 1.Now sleeping disturbance. If it is due to beta leigh, is not clear. It cannot completely be ruled in or out. She does not want to stop beta leigh. 2.We agree if we need to will stop it slowly because of the rebound to the pericardium with beta leigh. Will decrease it to 25 mg once a day and will check in 10-14 days. If worse, additional symptom, concern, back to the clinic. Otherwise, will follow up here or with her primary doctor after 10-14 days and see if it makes any difference. The other option also, like calcium channel leigh, discussed with the patient. YO:MEDQ C: CONFIRM #: [id number] NEL LAYER documented in this encounter Plan of Treatment Upcoming Encounters Date Type Specialty Care Team Description 05/18/2022 Appointment Rheumatology Erasmo Horn MD [address] [facility] [place] [facility] [id number] (Wo rk) documented as of this encounter Visit Diagnoses Diagnosis Sleep concern - Primary Problems related to lack of adequate sle ep documented in this encounter Care Teams Lehr Operator Relationship Specialty Start Date End Date Manjit Tovar MD PCP - General 03/08/15 [address] [place] [id number] documented as of this encounter
--- OUTSIDE RECORDS SUMMARY | 2022-05-17 08:29 | XMS_ITS | Encounter Summary ---
:1985 Author Organization [employer] Address [address] [place] [address] Care Team Providers Name Role Phone Liana Tovar MD Primary Care Provider Reason for Visit Reason Onset Date Comments Palpitations 09/06/2016 Encounter Details Date Type Department Care Team Description 09/06/2016 Telephone [facility] Amy Sinha PA-C Palpitations Cardiology [address] [place] [address] [place], [place] [id number] [phone] Social History Tobacco Use Types Packs/Day Years [...] documented as of this encounter Nursing Notes Adri Moody RN - 09/06/2016 8:13 AM CST Lizz, She is a patient of Dr. Rosado. I added her onto your schedule this morning in [place]. C/O palpitations and racing heart during the night. Denies dyspnea, lightheadedness, dizziness, chest discomfort. Was recently changed to nifedipine 30 mg on 09/04/16 by PCP. Had been on Metoprolol for years prior, was stopped due to night terrors. She is also 4 weeks , it's her first . I asked her to be there at 0915 for an EKG prior and have put in an order. Adri AT CHIEF documented in this encounter Plan of Treatment Upcoming Encounters Date Type Specialty Care Team Description 05/18/2022 Appointment Rheumatology Erasmo Horn MD [address] [facility] [address] [address] (Wo rk) documented as of this encounter Procedures Procedure Name Priority Date/Time Associated Diagnosis Comme nts ECG 12 LEAD Routine 09/06/2016 10:17 Palpitations Results for this OUTPATIENT AM REPEAT CHIEF procedure are i n the results section. documented in this encounter Results ECG 12 Lead Outpatient (09/06/2016 10:17 AM REPEAT CHIEF) P athologist Signature Ventricular Rate 85 BPM [facility] Atrial Rate 85 BPM [facility] P-R Interval 148 ms [facility] QRS Duration 90 ms [facility] QT 364 ms [facility] QTc 433 ms [facility] P [place] 26 degrees [facility] R [place] 27 degrees [facility] T [place] 39 degrees [facility] Specimen (Source) Anatomical Collection Method Collection Time Re ceived Time Location / / Volume Laterality 09/06/2016 10:17 AM REPEAT CHIEF Narrative [facility] - 09/06/2016 1:00 PM REPEAT CHIEF Sinus rhythm Normal ECG When compared with ECG of 05-NOV-2015 13 :53, T wave amplitude has decreased in Anteri or leads Confirmed by KI GARCIA ([id number]), ALEM Pereira ([id number]) on 09/06/2016 1:00:32 PM Procedure Note Ki Garcia MD / Epic, Internal Pro cessing - 11/26/2019 Sinus rhythm Normal ECG When compared with ECG of 05-NOV-2015 13 :53, T wave amplitude has decreased in Anteri or leads Confirmed by KI GARCIA ([id number]), ALEM Pereira ([id number]) on 09/06/2016 1:00:32 PM Lizz Sinha PA-C PN ECG ORDERABLES Performing Organization Address City/State/ZIP Code Phon e Number [facility] [address] [place] [address] documented in this encounter Visit Diagnoses Diagnosis Palpitations - Primary documented in this encounter Care Teams Oil Seal Assembler Relationship Specialty Start Date End Date Liana Tovar MD PCP - General 03/08/15 [address] [place] [address] documented as of this encounter
--- OUTSIDE RECORDS SUMMARY | 2022-05-17 08:29 | XMS_ITS | Encounter Summary ---
:1985 Author Organization [employer] Address [address] [place] [address] Care Team Providers Name Role Phone Manjit Tovar MD Primary Care Provider Reason for Visit Reason Comments Skin Check Encounter Details Date Type Department Care Team Description 07/13/2020 Office Visit Delfina Orta L, Pruritus (Primary Dx); Dermatology Rash; [address] [address] [address] Eczema, dyshidrotic; [place] [address] [place], [place] Blood pressure elevated with out history of HTN [phone] [id number] (Wo rk) Social History Tobacco Use Types [...] Sign Reading Time Taken Comments Blood Pressure 136/104 07/13/2020 11:53 AM NUCLEAR MEDICINE TECHNICIAN Pulse 91 07/13/2020 11:53 AM NUCLEAR MEDICINE TECHNICIAN Temperature - - Respiratory Rate - - Oxygen Saturation - - Inhaled Oxygen Concentration - - Weight - - Height - - Body Mass Index - - documented in this encounter Progress Notes Delfina Knox MD - 07/13/2020 12:00 PM CST NAME: MANJIT JUAREZ MR#: [id number] CSN: [id number] AUTHENTICATING CLINICIAN: Delfina Knox MD CONFIRM #: [id number] LOC: 527 CLINIC PROGRESS NOTE DATE OF VISIT: 07/13/2020 : 1985 Manjit is a 34-year-old I have known for years. 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 She has been on it before without problems. She started that June 30. Also, found to have a high TSH, low thyroid and started on Synthroid, generic levothyroxineon July 02Sunday. Sunday or Sunday she woke up and she had a couple little bumps on the leftbreast that were itchy, but they went away quickly and then the next day they were on her legs and have spread now all over. It was approximately 4 or 5 days from taking metoprolol and more like 2 daysfrom taking Synthroid to getting this rash. Very itchy at night, hard to sleep, having to ice pack the legs so she is not scratching at all. Then on she quit metoprolol, the and on SundayI believe she stopped the Synthroid, on the . She also got a new cat about a month ago and they did [employer] video evaluation to see if there was any fleas on her cat or her dogs and they did not find anything, and they did not see any dandruff. No new beds. Have not traveled. Have not had anybody in the house in the last month that traveled either. Nobody else, Aly nor her daughter is getting itching like she is. EXAMINATION: She has what look like juicy bites on her legs. They are pink, somewhat blister filled, firm papuleswith erythema surrounding them. Probably 30 on the legs and then a lot of postinflammatory, kind a not bruising but postinflammatory red spots where they have been before on the legs. On the chest she is telangiectatic but no true rash. Face is clear and the arms are clear. I guess I did not look at the tummy. I did take photographs. ASSESSMENT: Medication reaction versus bites. They initially look like hives but hives usually does not get thatpigmentation in the skin, the bruising or bleeding into the skin afterwards. We decided to do a biopsy to make sure we do not have a vasculitis. She does have autoimmune disease in that she has had rheumatoid arthritis since she was little. So a biopsy was indicated. I did check her blood pressure andit was initially 146/113 while I was talking to her it calmed down. Still sitting 136/109, but I am still not comfortable with that. Her pulse was in the 90s. She is not otherwise sick. She does not feel ill. She does not have a sore throat. No loss of taste or smell. Nobody else in the house is sick.No cough. She does not look ill on exam today. ASSESSMENT: Bite reactions versus medication reactions versus vasculitis. PLAN: A 3 mm plug biopsy on the left thigh was done in [address] [facility] new lesions. Photographs were taken after the biopsy. One 5-0 Ethilon stitch was placed. 1% lidocaine with epinephrine at 1:100,000 was injected and then the 3 mm plug, one 5-0 Ethilon stitch and Vaseline and a Band-Aid. I will see her back in 2 weeks for full-body exam, recheck the rash. I would like to put her on prednisone to help hersleep and get through this, but I also want her to recheck the animals, make sure there is no kylietialor or cat mites on the cat or the dog mites, make sure there is no dandruff. I also want her to strip the bed and look around the mattress seams to make sure someone did not inadvertently bring bedbugs to the house. I told her that people sometimes are being bit too but they are not allergic, so they do not get the rash, nobody feels the bites. I am most suspicious, I would have to put money on thecat, because this does not really look like a medication reaction in my mind, but will see what happens. At this point she needs to check her blood pressure, today, tonight, tomorrow and if the low level is above 100, she needs to call her primary care doctor. I did give her prednisone 10 mg, I only want her to take 2 now at the end of lunch, two 20 mg just to take the edge off for tonight and then start tomorrow at 4. Unless the blood pressure goes up, then she needs to hold the prednisone. We alsotalked about sugar. She did have just gestational diabetes. She does not think that her sugar runs high. We talked about what to expect if it were. I did give her Lidex cream to put on the individual spots, may help at night and I would like to see her back in 2 weeks for suture removal and a full-body exam. I will call her in a week when I get the results back and I think I might just check on her to joe as well. She certainly knows how to get a hold to me. Again, my most concern right now is herblood pressure, but I feel like I need to give her a little prednisone to take the edge off and I will get back to her as soon as I see results. FINAL DIAGNOSIS Skin, Left Thigh - Anterior, punch: - Urticarial reaction pattern, negative for vasculitis. ?? COMMENT: The dermis is edematous with a mild interstitial mixed inflammatory infiltrate including eosinophils and rare neutrophils. The epidermis is essentially normal. I do not appreciate fibrinoid necrosis of blood vessel pineda or noteworthy leukocytoclasis. The findings suggest urticaria; the differential diagnosis includes urticarial medication reaction and urticarial phase of an autoimmune bullous disorder. ?? Pt informed on voicemail- my cell number left and I will see her Sunday. VLV:MEDQ C: CONFIRM #: [id number] EAR MEDICINE TECHNICIAN documented in this encounter Plan of Treatment Upcoming Encounters Date Type Specialty Care Team Description 05/18/2022 Appointment Rheumatology Erasmo Horn MD [address] [facility] [place] [address] [address] (Wo rk) documented as of this encounter Procedures Procedure Name Priority Date/Time Associated Comments Diagnosis SKIN BIOPSY Routine 07/13/2020 11:54 Rash Results for this AM NUCLEAR MEDICINE TECHNICIAN procedure are i n the results section. SURGICAL PATHOLOGY, Routine 07/13/2020 11:54 Rash Resu lts for this DERMATOLOGY AM NUCLEAR MEDICINE TECHNICIAN procedure are i n the results section. documented in this encounter Results Skin Biopsy (No CPT) (07/13/2020 11:54 AM NUCLEAR MEDICINE TECHNICIAN) Narrative EXTERNAL RESULTS - 07/13/2020 11:[address] Type of biopsy: punch ?? Delfina Knox MD DERM PROCEDURE ORDERABLES Performing Organization Address City/State/ZIP Code Phon e Number EXTERNAL RESULTS Surgical Path, Dermatology (07/13/2020 11:54 AM NUCLEAR MEDICINE TECHNICIAN) Component Value Ref Test Analysis Performed At [facility] gist Range Method Time Signature Case Report Surgical Pathology Report ? Case: [id number] ? 07/16/2020 [employer]ANCE [employer]NAGER 3800 Authorizing Provider: ??Delfina Bowman MD ? Collected: ? 07/13/2020 1154 ? 1:26 PM DERMATO LOGY Ordering Location: ? [facility] Dermatology ? Received: ?07/14/2020 1009 ? NUCLEAR MEDICINE TECHNICIAN Pathologist: ? Nash Omalley MD ? Specimen: ?Skin, Left Th igh - Anterior ? FINAL Skin, Left Thigh - Anterior, punch: 06/28 [facility] 3800 Electronically DIAGNOSIS - Urticarial reaction pattern, negative for vasculitis. 1:26 PM DERMATOLOGY signed by NUCLEAR MEDICINE TECHNICIAN Sherine Omalley COMMENT: The dermis is edema tous with a mild interstitial mixed inflammatory infiltrate including eosinophils and rare neutrophils. The epidermis is essentially normal. I do not appreciate fibrinoid saida Sue MD on rosis of blood vessel pineda or noteworthy leukocytoclasis. The findings suggest urticaria; the differential diagnosis includes urticarial medication reaction and urticarial phase of an autoimmune bullous disorder. 07/16/2020 at 1:26 PM Clinical Differential Diagnosis: hives vs vasculitis 07/16/2020 [facility] 3800 Information 1:26 PM DERMATOLOGY NUCLEAR MEDICINE TECHNICIAN Microscopic Microscopic 07/16/2020 [facility] 3800 Description examination is 1:26 PM DERMATOLOGY performed. NUCLEAR MEDICINE TECHNICIAN Gross A. Skin, Left Thigh - Anterior. 07/16/[address] [facility] 3800 Description Received in formalin, labele d with the patient's name and Skin, Left Thigh - Anterior is a 3 x 3 x 5 mm punch biopsy of skin. The specimen is marked with abe ink and submitted entirely in one cassette. NW 1:26 PM DERMATOLOGY NUCLEAR MEDICINE TECHNICIAN Embedded 07/16/2020 [facility] 3800 Images 1:26 PM DERMATOLOGY NUCLEAR MEDICINE TECHNICIAN Specimen Anatomical Collection Method Collection Time Receive d Time (Source) Location / / Volume Laterality Skin (Skin) 07/13/2020 11:54 07/14/2020 AM NUCLEAR MEDICINE TECHNICIAN 10:09 AM NUCLEAR MEDICINE TECHNICIAN Comment: Differential Diagnosis: hives v s vasculitis Delfina Knox MD LAB PATHOLOGY Performing Organization Address City/State/ZIP Code Phon e Number [facility] 3800 DERMATOLOGY [address] [place], [place] [address] documented in this encounter Visit Diagnoses Diagnosis Pruritus - Primary Unspecified pruritic disorder Rash Rash and other nonspecific skin eruption Eczema, dyshidrotic Dyshidrosis Blood pressure elevated without history of HTN Elevated blood pressure reading without diagnosis of hypertension documented in this encounter Care Teams Medical Secretary Teacher Relationship Specialty Start Date End Date Manjit Tovar MD PCP - General 03/08/[address] [place] [address] documented as of this encounter
--- OUTSIDE RECORDS SUMMARY | 2022-05-17 08:29 | XMS_ITS | Encounter Summary ---
:1985 Author Organization [employer] Address [address] [place] [address] Care Team Providers Name Role Phone Liana Tovar MD Primary Care Provider Reason for Visit Reason Onset Date Comments Refill Refill 06/23/2020 Encounter Details Date Type Department Care Team Description 06/08/2020 Refill Delfina Stern MD Refill; Refill [address] [place] [address] [place] [address] [phone] (Wo rk) Social History Tobacco Use Types [...] documented as of this encounter Nursing Notes Phylicia Wood RN - 06/08/2020 3:19 PM CDT Last visit: 03/24/20 Future visit: 07/26/20 Name of drug: epipen 0.3 mg/0.3 ml injection Reason not refillable by nurse: not on approved refill list Do you wish to refill? Thank you! documented in this encounter Plan of Treatment Upcoming Encounters Date Type Specialty Care Team Description 05/18/2022 Appointment Rheumatology Erasmo Horn MD [address] [facility] [place] [id number] (Wo rk) documented as of this encounter Visit Diagnoses Not on filedocumented in this encounter Care Teams Courier Driver Relationship Specialty Start Date End Date Liana Tovar MD PCP - General 03/08/15 [address] [place] [address] documented as of this encounter
--- OUTSIDE RECORDS SUMMARY | 2022-05-17 08:29 | XMS_ITS | Encounter Summary ---
:1985 Author Organization [employer] ([employer]) Address [address] [place] [address] Care Team Providers Name Role Phone Manjit Tovar MD Primary Care Provider Reason for Visit Reason Comments Skin Check Encounter Details Date Type Department Care Team Description 07/26/2020 Office Visit Delfina Orta, Swapna riddle skin (Primary Dx); Dermatology Seborrheic keratosis; [address] [address] [address] exam for malignant neoplasm; [place] [address] [place], [place] Personal history of malignan t melanoma of skin; [phone] [id number] History of dysplastic nevus; [phone] (Wo rk) Neoplasm of skin Social History Tobacco Use Types Packs/Day Years [...] encounter Progress Notes Delfina Knox MD - 07/26/2020 12:00 PM CST NAME: MANJIT JUAREZ MR#: [id number] CSN: [id number] AUTHENTICATING CLINICIAN: Delfina Knox MD CONFIRM #: [id number] LOC: 527 CLINIC PROGRESS NOTE DATE OF VISIT: 07/26/2020 : 1985 Manjit is a 34-year-old here for a couple reasons, her full-body exam as she has had a couple melanomas, 2009, left breast 0.39 mm in depth and 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 Shealso had a severely dysplastic nevus, left forehead. She has had rheumatoid arthritis since age 19. 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 I just saw her in the middle of June because she hada rash. A biopsy was done. It is mostly lower legs and it was an urticarial reaction pattern. Negative for vasculitis, and she went off both metoprolol and generic Synthroid, and the rash cleared. So we do not know which it was, but her doctor put her on atenolol, and it is helping a lot for his headaches and blood pressure and non generic or branded Synthroid was placed, and the rash is clearing. She still has a stitch on the left thigh. I should say she has 2 worries. One is a spot on the left cheek that is bleeding. Every time she washes her face, it breaks down and bleeds and then 1 on the right leg that she shaves across, it bleeds like crazy and will not stop bleeding. It takes a long time. OBJECTIVE: SKIN: Full-body exam today includes full-body exam including scalp, face, neck, chest, back, abdomen, buttocks, groin, arms, legs, hands, feet, nails, perirectal and pubic area: A few junctional nevi, upper back and a few on the chest and arms. She has like 3 or 4 slightly larger moles right hip, medium brown, low abdomen by the scar that is loss of color around hair follicles, but junctional, light brown, not worrisome. I think one on the abdomen, one on the leg. The one on the thigh has a little tail off to one side, but she has had it for years. It is junctional. She thinks she has hadit since she was a kid, and I am not worried about it. Then on the right thigh she has a sherman hemangioma that is inflamed and irritated and then on the left cheek, she has a shiny pinkish, red papulethat is consistent with hemangioma as well and too big to cat whisker. I think pulsed dye laser would clear it without scarring where a biopsy would scar. Her scars themselves were palpated, and she has many on the back, left forehead, chest and legs. I feel no lymphadenopathy, no bumpiness under the scars and no lymphadenopathy in the neck, supraclavicular, infraclavicular, axillary, nor groin. She is very sensitive under the arms, not ticklish but it is painful when I palpate and I think it is just muscles from carrying Ros around. Perirectal is fine. Genitalia shows a tiny little chocolate brown mole on the upper inner groin. I think it is left side, not worrisome, and then she has postinflammatory pigmented spots on the legs where her urticarial eruption kind of has started to fade. No urticaria remaining. ASSESSMENT: I think probably allergic reaction to non branded Synthroid, especially that she can tolerate atenolol without problems, and I would think it would cross react if she had a metoprolol allergy, but she should always get branded Synthroid. I have seen several allergic reactions to non branded Synthroid and I am not sure why. The stitch was removed by my nurse. The spot on the right thigh was photographed. I believe I hope. Anesthetized with 1% lidocaine with epinephrine at 1:100,000, sterilely preppedand draped, deep shave biopsy and it went deep, so I had to cauterize a little deep, but it was small. The left cheek I failed to photograph I believe and again it is probably a 3 to 4 mm fully pink blood vessel there hemangioma that she would like laser. We talked about putting in a consult for pulsed dye appointment either with Brian or Ruth newberry here in [place], whoever is still doing that. Dena see her back in 6 and 12 months. I do spend longer time with her so 45 minute appointment. Withher permission, 1% lidocaine with epinephrine at 1:100,000 right thigh shave biopsy. Cautery used for hemostasis. FINAL DIAGNOSIS Skin, Right Thigh - Anterior, shave: - Benign hemangioma. ?? Pt informed on voicemail VLV:MEDQ C: CONFIRM #: [id number] PRESS OPERATOR Delfina Knox MD - 07/26/2020 12:00 PM CST NAME: MANJIT JUAREZ MR#: [id number] CSN: [id number] AUTHENTICATING CLINICIAN: Delfina Knox MD CONFIRM #: [id number] LOC: [facility] CLINIC ADDENDUM DATE OF VISIT: 07/26/2020 : 1985 ADDENDUM: Manjit took 20 mg of prednisone per me 2 weeks ago to treat her urticarial eruption and she had bad palpitations. Saw a primary physician. He took her off, put her on Atarax and she did well. VLV:MEDQ C: CONFIRM #: [id number] PRESS OPERATOR documented in this encounter Plan of Treatment Upcoming Encounters Date Type Specialty Care Team Description 05/18/2022 Appointment Rheumatology Erasmo Horn MD [address] [facility] [address] [address] (Wo rk) documented as of this encounter Procedures Procedure Name Priority Date/Time Associated Comments Diagnosis SKIN BIOPSY Routine 07/26/2020 10:00 Neoplasm of skin Results for this AM KICK PRESS OPERATOR procedure are i n the results section. SURGICAL PATHOLOGY, Routine 07/26/2020 10:00 Neoplasm of skin Results for this DERMATOLOGY AM KICK PRESS OPERATOR procedure are i n the results section. documented in this encounter Results Skin Biopsy (No CPT) (07/26/2020 10:00 AM KICK PRESS OPERATOR) Narrative EXTERNAL RESULTS - 07/26/2020 10:[address] Type of biopsy: tangential ?? Delfina Knox MD DERM PROCEDURE ORDERABLES Performing Organization Address City/State/ZIP Code Phon e Number EXTERNAL RESULTS Surgical Path, Dermatology (07/26/2020 10:00 AM KICK PRESS OPERATOR) Component Value Ref Test Analysis Performed At [facility] gist Range Method Time Signature Case Report Surgical Pathology Report ? Case: [id number] ? 07/28/2020 CREDIT COLLECTIONS REP [id number] Authorizing Provider: ??Delfina Bowman MD ? Collected: ? 07/26/2020 1000 ? 2:58 PM DERMATO LOGY Ordering Location: ? [facility] ? Received: ?07/27/2020 0829 ? KICK PRESS OPERATOR Pathologist: ? Nash Omalley MD ? Specimen: ?Skin, Right T high - Anterior ? FINAL Skin, Right Thigh - Anterior, shave: 09/2019 CREDIT COLLECTIONS REP [id number] Electronically DIAGNOSIS - Benign hemangioma. 2:58 PM DERMATOLO GY signed by KICK PRESS OPERATOR Sherine Omalley MD on 07/28/2020 at 2:58 PM Clinical Differential Diagnosis: irritated hemangioma 07/28/2020 CREDIT COLLECTIONS REP [id number] Information 2:58 PM DERMATOLOGY KICK PRESS OPERATOR Microscopic Microscopic 07/28/2020 CREDIT COLLECTIONS REP 3800 Description examination is 2:58 PM DERMATOLOGY performed. KICK PRESS OPERATOR Gross A. Skin, Right Thigh - Anterior. 12/02/2 020 CREDIT COLLECTIONS REP [id number] Description Received in formalin, labele d with the patient's name and Skin, Right Thigh - Anterior is a 6 x 4 x 1 mm shave biopsy of skin. The specimen is marked with green ink, bisected, and submitted entirely in one cassette. MT 2:58 PM DERMATOLOGY KICK PRESS OPERATOR Embedded 07/28/2020 CREDIT COLLECTIONS REP 3800 Images 2:58 PM DERMATOLOGY KICK PRESS OPERATOR Specimen Anatomical Collection Method Collection Time Receive d Time (Source) Location / / Volume Laterality Skin (Skin) 07/26/2020 10:00 07/27/2020 8:29 AM KICK PRESS OPERATOR AM KICK PRESS OPERATOR Comment: Differential Diagnosis: irritat ed hemangioma Delfina Knox MD LAB PATHOLOGY Performing Organization Address City/State/ZIP Code Phon e Number [facility] 3800 DERMATOLOGY [address] [place] [phone] documented in this encounter Visit Diagnoses Diagnosis [...] skin documented in this encounter Care Teams Wrapper Layer And Examiner Soft Work Relationship Specialty Start Date End Date Manjit Tovar MD PCP - General 03/08/[address] [place] [address] documented as of this encounter
--- OUTSIDE RECORDS SUMMARY | 2022-05-17 08:29 | XMS_ITS | Encounter Summary ---
:1985 Author Organization [employer] Address [address] [place] [address] Care Team Providers Name Role Phone Liana Tovar MD Primary Care Provider Reason for Visit Reason Comments QUESTIONS, GENERAL Encounter Details Date Type Department Care Team Description 04/07/2019 Telephone [facility] Jeny Hernandez, RN QUESTIONS, GENERAL [address] [place] [address] Social History Tobacco Use Types Packs/Day Years [...] documented as of this encounter Nursing Notes Jeny Hernandez LPN - 04/07/2019 3:34 PM CDT Scheduled Ros for appt on 04/09/19 Jeny Hernandez LPN - 04/07/2019 3:20 PM CDT Spoke with Liana. She will call the main appt time to register her daughter and then will call back to schedule with Dr. Mccray. Delfina Knox MD - 04/07/2019 12:23 PM CDT Yes either I or pediatric derm should see it- prob a pyogenic granuloma- may need to remove it- but should be evaluated first-see when I can fit her in Jeny Hernandez LPN - 04/07/2019 12:13 PM CDT Pt is calling regarding her 2yr old daughter, Ros. She states that her daughter has had a red spot on her nose for approx 1 month. It looks like a blood blister and it breaks open and bleeds when irritated. She had the lesion evaluated at and it was recommended that either her load dispatcher local or a d ermatologist look at it. Liana is wondering if Dr. Mccray would like to see it or what recommendations you have. CB# [phone] documented in this encounter Plan of Treatment Upcoming Encounters Date Type Specialty Care Team Description 05/18/2022 Appointment Rheumatology Erasmo Horn MD [address] [facility] [place] [address] [address] (Wo rk) documented as of this encounter Visit Diagnoses Not on filedocumented in this encounter Care Teams Creative Lead Relationship Specialty Start Date End Date Liana Tovar MD PCP - General 03/08/[address] [place], [place] [address] documented as of this encounter
--- OUTSIDE RECORDS SUMMARY | 2022-05-17 08:29 | XMS_ITS | Encounter Summary ---
:1985 Author Organization [employer] Address [address] [place] [address] Care Team Providers Name Role Phone Liana Tovar MD Primary Care Provider Reason for Visit Reason Onset Date Comments RESULTS, TEST 09/13/2016 Encounter Details Date Type Department Care Team Description 09/13/2016 Telephone [facility] Lizz Sinha PA-C RESULTS, TEST [address] [facility] . [address] [place] [address] [place], [place] [address] (Wo rk) Social History Tobacco Use Types [...] Notes Maria De Jesus Gastelum RN - 09/14/2016 11:08 AM CST Pt notified and all questions answered. RVISOR TOY ASSEMBLY Lizz Sinha PA-C - 09/14/2016 10:04 AM CST Irma, Please let her know that her holter monitor off Toprol looked normal, no worrisome heart rhythms. Itis not uncommon to have faster heart rates with . Without anything worrisome, the risks to her baby of a class C medication is not worth the benefit. Would not advise metoprolol or ni fedipine to treat sinus tachycardia in . Thanks! RVISOR TOY ASSEMBLY Amy Cavazos RN - 09/13/2016 2:45 PM CST Holter ECG Report: Interpretation read by Dr. Moody on 09-13-16 -Sinus rhythm with sinus arrhythmia. Average heart rate 99 bpm. Intermittent sinus tachycardia, maximum heart rate 150 bpm. Minimum heart rate 61 bpm. -No ventricular ectopy. -One premature supraventricular complex. -No diary kept for correlation. Contract Manager-[facility] RVISOR TOY ASSEMBLY documented in this encounter Plan of Treatment Upcoming Encounters Date Type Specialty Care Team Description 05/18/2022 Appointment Rheumatology Erasmo Horn MD [address] [facility] [address] [address] (Wo rk) documented as of this encounter Visit Diagnoses Not on filedocumented in this encounter Care Teams Air Saw Operator Relationship Specialty Start Date End Date Liana Tovar MD PCP - General 03/08/15 [address] [place] [address] documented as of this encounter
--- OUTSIDE RECORDS SUMMARY | 2022-05-17 08:29 | XMS_ITS | Encounter Summary ---
:1985 Author Organization [employer] Address [address] [place] [address] Care Team Providers Name Role Phone Liana Tovar MD Primary Care Provider Reason for Visit Reason Comments CALLUSES NAIL PROBLEM Encounter Details Date Type Department Care Team Description 07/03/2016 Initial Consult Dominik Lee Right fish t pain (Primary Dx); Podiatric MedSurg BRENDA Velazquez Onychomycosis; [address] [address] [facility] D R Metatarsalgia [place] [address] [phone] Social History Tobacco Use Types Packs/Day Years [...] documented as of this encounter Progress Notes Dominik Perry DPM - 07/03/2016 4:06 PM CST DATE OF VISIT: 07/03/2016 SUBJECTIVE: Liana Juarez is a pleasant 30 y.o. female who presents to clinic today for evaluation of right foot pain. She has had a painful callus area on the bottom of her right foot for many years however it is been bad in the last 2 months. She has tried using a pumice stone at home. She denies any injuryor trauma. She also has questions regarding her nail plates. She does have a history of rheumatoid arthritis. Adverse Drug Reactions: Allergies Allergen Reactions ??? Bacitracin Rash ??? Metronidazole Other, see comments PN: Headache ??? Other Hives PN: Dairy ??? Wound Dressing Adhesive Rash PN: Paper tape & Tegaderm is okay ??? Hollywood Oil Hives Outpatient Prescriptions Prior to Visit Medication Sig ??? ascorbic acid (VITAMINC) 500 MG tablet Take 1,000 mg by mouth daily (every 24 hours). ??? Calcium Carbonate (CALCIUM 600 OR) Take by mouth. pt unsure of dose ??? cholecalciferol (VITAMIND3) 2000 UNITS tablet Take 1 tablet by mouth daily (every 24 hours). ??? [DISCONTINUED] clindamycin (CLEOCIN) 2 % vaginal cream Place 1 Applicatorful vaginally nightly. ??? clindamycin (CLEOCINT) 1 % lotion Apply under arms once a day. ??? EPINEPHrine (AUVI-Q) 0.3 MG/0.3ML injection Inject 0.3 mLs into the muscle as needed for Anaphylaxis. May Repeat ??? Meloxicam (MOBIC) 15 MG tablet Take 15 mg by mouth daily (every 24 hours). ??? metoPROLOL succinate (TOPROL XL) 50 MG 24 hour release tablet Take 1 Tab by mouth two times a day. ??? Norethindrone, Contraceptive, (MICRONOR) 0.35 MG tablet Take 1 tablet by mouth daily (every 24 hours). Follow package directions ??? ondansetron (ZOFRAN-ODT) 4 MG disintegrating tablet Take 1 tablet by mouth every 8 hours as needed for Nausea or Vomiting. Dissolve tablet on tongue ??? sulfaSALAzine (AZULFIDINE) 500 MG tablet Take 1,500 mg by mouth 2 times daily. ??? SUMAtriptan (IMITREX) 25 MG tablet Take 1 tablet by mouth as needed for Migraine. May repeat after 2 hours if needed. Max 8 tabs/24 hours. Max 9 days/month No facility-administered medications prior to visit. Review of Systems: Negative for fever, rash or shortness of breath. Past Medical History: Past Medical History Diagnosis Date ??? Arthritis (HRC) ??? Melanoma (HRC) hx of skin cancer ??? Rheumatoid arthritis(714.0) (HRC) ??? Obesity (HRC) ??? Elevated blood pressure reading without diagnosis of hypertension 11/04/2015 ??? Abnormal uterine bleeding (AUB) 11/04/2015 ??? Chest discomfort 11/04/2015 ??? Menorrhagia 05/26/2008 LW Onset: 2006 ??? Fx Bone NOS Closed 05/26/2008 LW Modifier: right wrist LW Onset: 1999 ??? Arthritis Juvenile Rheumatoid Chronic 07/04/2005 LW Onset: ??? Bursitis Trochanteric Right 05/27/2009 ??? Dysplastic Nevus 08/22/2010 LW Modifier: face ??? Obesity due to excess calories (HRC) 11/04/2015 ??? HARRIS (headache) Patient Active Problem List Diagnosis Date Noted ??? Abnormal uterine bleeding (AUB) 11/04/2015 ??? Chest discomfort 11/04/2015 ??? Obesity due to excess calories (HRC) 11/04/2015 ??? Elevated blood pressure reading without diagnosis of hypertension 11/04/2015 ??? Neoplasm of uncertain behavior of skin 08/22/2010 Overview Note: LW Modifier: face ??? Enthesopathy of hip region 05/27/2009 ??? Neoplasm of uncertain behavior of skin 04/19/2009 Overview Note: LW Modifier: congenital type, breast ??? Excessive or frequent menstruation 05/26/2008 Overview Note: LW Onset: 2006 ??? Chronic polyarticular juvenile rheumatoid arthritis (HRC) 07/04/2005 Overview Note: LW Onset: Past Surgical History Procedure Laterality Date ??? 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 year old female who appears their stated age. Alert and oriented and in no acute distress. Walks without a limp and appears to be in general good health. DP and PT pulses are palpable. Hair growth is present on the digits and capillary filling time is less than two seconds. Sensation is intact. There is no weakness with muscle testing of the foot, ankle or lower leg. No pain or restriction with subtalar joint or ankle joint range of motion. In stance loss of longitudinal arch is evident. There are no paresthesias over the tarsal tunnel or with compression of the dorsal nerves. She does have diffuse pain with palpation of the 4th and 5th metatarsal heads on both feet. She doeshave a hyperkeratotic area on the plantar 5th metatarsal head bilaterally. This is more so on the right foot on the left. Upon inspection, she almost has a core-like area similar to a porokeratotic lesion on the plantar 5th metatarsal head of the right foot. There is no pain with digital range of motion. She does have varus rotation noted to the 5th toe on both feet. She does have some thickening noted to her nail plates. ASSESSMENT: Right foot pain Metatarsalgia right foot Onychomycosis PLAN: Treatment options were discussed with the patient. I discussed the condition in great detail. I discussed with the patient that she does have a hyperkeratotic lesion that has a core-like appearance to it. There is no evidence of any wart tissue. She can continue to use a pumice stone or callus fi le to the area. I also discussed trying to offload the forefoot area with an insert. I did recommenda temporary blue orthotic. If this helps but she continues to have pain, and upgraded insert from [facility] may be a consideration or even a custom orthotic. For the nail plates, I discussed the use of Vicks VapoRub. She will apply this once a day for the next 8-12 months. She will follow-up with me p.r.n. basis. All questions answered The patient was discharged ambulatory and in stable condition. No orders of the defined types were placed in this encounter. No orders of the defined types were placed in this encounter. (This note was created using voice recognition software and may contain some adjunct physical education instructor errors) RBOAT MECHANIC HELPER documented in this encounter Plan of Treatment Upcoming Encounters Date Type Specialty Care Team Description 05/18/2022 Appointment Rheumatology Erasmo Horn MD [address] [place] [address] (Wo rk) documented as of this encounter Visit Diagnoses Diagnosis Right foot pain - Primary Pain in limb Onychomycosis Dermatophytosis of nail Metatarsalgia of right foot Enthesopathy of ankle and tarsus, unspec ified documented in this encounter Care Teams Funeral Car Driver Relationship Specialty Start Date End Date Liana Tovar MD PCP - General 03/08/15 [address] [place] [address] documented as of this encounter
--- OUTSIDE RECORDS SUMMARY | 2022-05-17 08:29 | XMS_ITS | Encounter Summary ---
:1985 Author Organization [facility] Address [address] [place] [address] Care Team Providers Name Role Phone Liana Tovar MD Primary Care Provider Reason for Visit Reason Comments MEDICATION CHECK Encounter Details Date Type Department Care Team Description 09/04/2016 Office Visit Tensed Family Adriana Hoffman, Positiv e test (Primary Dx); Medicine PA-C Palpitations; [address] Need for immunization against influenza; [place], [place] Migraine with aura and without status migrainosus, not intractable [id number] [phone] Social History Tobacco Use Types Packs/Day Years [...] Sign Reading Time Taken Comments Blood Pressure 120/70 09/04/2016 10:32 AM HOUSING MANAGEMENT OFFICER Pulse 84 09/04/2016 10:32 AM HOUSING MANAGEMENT OFFICER Temperature - - Respiratory Rate - - Oxygen Saturation - - Inhaled Oxygen Concentration - - Weight 87.5 kg (193 lb) 09/04/2016 10:32 AM HOUSING MANAGEMENT OFFICER Height - - Body Mass Index 35.59 08/18/2016 1:07 PM HOUSING MANAGEMENT OFFICER documented in this encounter Patient Instructions Patient InstructionsAdriana Hoffman PA-C - 09/04/2016 11:14 AM CST Here is plan below: 1) Start the Nifidepine XL 30mg in the AM and taper off the Metoprolol XL, 1/2 tablet every other day for a week and if doing well can stop and see how it goes. 2) Schedule a recheck visit for [address] Tovar to make sure you are doing well on the new medication. 3) Keep taking your vitamin and keep your scheduled appointment with Explosive Expert on 09/27/16 with the [facility]. 4) Start 500mg of magnesium before bed to help prevent headaches also and drink 2-3 liters of water per day. Call with any questions. Thanks, Adriana Hoffman, PAC. ING MANAGEMENT OFFICER documented in this encounter Progress Notes Adriana Hoffman PA-C - 09/04/2016 10:59 AM CST Clinic Visit SUBJECTIVE: CC: Chief Complaint Patient presents with ??? MEDICATION CHECK History of Present Illness: Pt is here today to discuss meds. She is 4 weeks with her firstpregnancy. She has an WIRE FRAME MAKER appointment for Sep 27 with [facility], [facility] [place]. She was put on metoprolol last year for migraines and then it was increased to 50mg due to palpitations. She started having night terrors so they decreased her to 25mg again the night terrors are much better but the palpitations are worse again. She had full work up for palpitations and they said it was benign. She will have palpitations daily if she doesn't take the medication. Discussed trying ccb. It is considered pretty safe for and can help the palpitations and migraines. Will do long acting Nifedipine and start at 30mg. PMH, Allergies and Medications reviewed and updated in [facility] today. Review of Systems: Review of systems reviewed and found to be negative except as noted above in HPI. OBJECTIVE: Vital Signs: BP 120/70 mmHg Pulse 84 Wt 193 lb (87.544 kg) General: Pleasant in NAD. Obese. HEENT: PERRLA, EOMI. Oropharynx clear. Neck: Supple, no lymphadenopathy or thyromegaly Lungs: Clear to auscultation b/l, no wheezes, rhonchi, rales. CV: RRR, no murmurs, rubs or gallops. Abdomen: Bowel sounds normal x 4, soft, non-tender, no HSM. Skin: Warm and dry without lesions or rashes. Extremities: No edema or varicosities b/l LE. Psych: Well dressed and groomed, normal affect. ASSESSMENT: Encounter Diagnoses Name Primary? Positive test Yes ??? Palpitations ??? Need for immunization against influenza ??? Migraine with aura and without status migrainosus, not intractable PLAN: Liana was seen today for medication check. Diagnoses and all orders for this visit: Positive test Palpitations - NIFEdipine osmotic (PROCARDIAXL) 30 MG 24 hour release tablet; Take 1 Tab by mouth daily. Need for immunization against influenza - Influenza (Fluarix 0.5, 3+ Yrs) Migraine with aura and without status migrainosus, not intractable - NIFEdipine osmotic (PROCARDIAXL) 30 MG 24 hour release tablet; Take 1 Tab by mouth daily. Other orders - Cancel: TDAP Here is plan below: 1) Start the Nifidepine XL 30mg in the AM and taper off the Metoprolol XL, 1/2 tablet every other day for a week and if doing well can stop and see how it goes. 2) Schedule a recheck visit for [address] Tovar to make sure you are doing well on the new medication. 3) Keep taking your vitamin and keep your scheduled appointment with Explosive Expert on 09/27/16 with the [facility]. 4) Start 500mg of magnesium before bed to help prevent headaches also and drink 2-3 liters of water per day. Call with any questions. Thanks, Adriana Hoffman PAC. 25min spent with pt today, >50% in consult about above A/P. HRK ING MANAGEMENT OFFICER documented in this encounter Plan of Treatment Upcoming Encounters Date Type Specialty Care Team Description 05/18/2022 Appointment Rheumatology Erasmo Horn MD [address] [facility] N [id number] (Wo rk) documented as of this encounter Visit Diagnoses Diagnosis Positive test - Primary examination or test, positive result Palpitations Need for immunization against influenza Need for prophylactic vaccination and in oculation against influenza Migraine with aura and without status mi grainosus, not intractable Migraine with aura, without mention of i ntractable migraine without mention of status migrainosus documented in this encounter Care Teams Sewer And Inspector Relationship Specialty Start Date End Date Liana Tovar MD PCP - General 03/08/15 [address] [place] [address] documented as of this encounter
--- OUTSIDE RECORDS SUMMARY | 2022-05-17 08:29 | XMS_ITS | Encounter Summary ---
:1985 Author Organization [facility] Address [address] [place] [address] Care Team Providers Name Role Phone Manjit Tovar MD Primary Care Provider Reason for Visit Reason Comments Skin Check Encounter Details Date Type Department Care Team Description 03/12/2017 Office Visit Delfina Orta Sun-dama ged skin (Primary Dx); Dermatology Seborrheic keratosis; [address] [address] [address] Skin exam for malignant neoplasm; [place] [address] [place], [place] Personal history of malignan t melanoma of skin [phone] (Wo rk) Social History Tobacco Use [...] on one occasion? Comment: Alcoholic Drinks/day: Amount:1-2 04/15/ 016 drinks; Freq:=< Monthly; Sex Assigned at Date Recorded Not on file documented as of this encounter Patient Instructions Patient InstructionsIwona Suarez RN - 03/12/2017 9:45 AM CDT 1. Clothing and shade are the best for sun protection. 2. Use sunscreen with zinc in it. See below for Dr. Mccray's sunscreen recommendations. 3. For under your arms: Use a moisturizer under arms at bedtime. DIRECT PHONE NUMBER: TIMMY [phone]. FEEL FREE TO CALL WITH ANY QUESTIONS [...] TERRASPORT OR AQUASPORT WHICH ARE AVAILABLE AT [facility]. ENVIRONMENTAL WORKING GROUP: [email or web address] THIS WILL LIST [...] USE Thank you for choosing Dermatology at [facility]! We welcome your feedback. Comment cards are located in our lobby. For questions, please call and choose one of the following options: - for appointments and scheduling, press 1 - to speak with a nurse about a medical question from 7:30 am to 5 pm, press 2 - after hours emergencies, follow the instructions to be transferred to the advanced manufacturing consultant provider For medication refills, please contact your pharmacy. For questions regarding billing, please contact [employer] at . Please consider enrolling in [employer]. Please follow the instructions below to securely access your online medical record. [employer] allows you to send messages to your doctor, view your test results, renew your prescriptions, schedule appointments, and more. How Do I Sign Up? 1. In your Internet browser, go to: [email or web address] 2. Click on the Enter Activation Code link under the New User? section. You will see the New Member Sign Up page. 3. Enter your [employer]us Activation Code exactly as it appears below. You will not need to use this code after you???ve completed the sign-up process. If you do not sign up before the expiration date, youmust request a new code. [employer] Activation Code: Activation code not generated Current [employer] Status: Active 4. Enter the last four digits of your Social Security Number ([id number]) and Date of (mm/dd/yyyy) as indicated and click Next. You will be taken to the next sign-up page. 5. Create a [employer]us ID. This will be your [employer]us login ID and cannot be changed, so think of one that is secure and easy to remember. 6. Create a [employer] password. You can change your password at any time. 7. Enter your Security Question and Answer. This can be used at a later time if you forget your password. Click Next. 8. Enter your e-mail address. You will receive e-mail notification when new information is availablein [employer]exus. 9. Click Sign In. You can now view your medical record. Additional Information If you have questions, you can call [phone] to talk to our [employer] staff. Remember, [employer] is NOT to be used for urgent needs. For medical emergencies, dial 911. documented in this encounter Progress Notes Delfina Knox MD - 03/12/2017 9:54 AM CDT NAME: MANJIT JUAREZ MR#: [id number] CSN: [id number] AUTHENTICATING CLINICIAN: Delfina Knox MD CONFIRM #: [id number] LOC: 527 CLINIC PROGRESS NOTE DATE OF VISIT: 03/12/2017 : 1985 SUBJECTIVE: Manjit is a delightful 31-year-old history of a melanoma left breast 0.39 mm in depth 2008, history of a probable thin melanoma left anterior leg in 2000, 0.19 mm in size, history of severely dysplasticnevus, left forehead. We have a picture on the 2nd toe right foot that is a larger mole that looks fine and unchanged from the photograph. She has right axilla compound nevi, but also little keloids inthe area that are itchy. She is using a man's deodorant so she is not itchy. She uses a moisturizer too that helps with the itch in the armpits. She has also had a left mid-lateral back severely dysplastic nevi removed. She has a little freckling on the right neck that I photographed to watch. It has a little pigmentation off to one side and again the 2nd toe right foot does not appear to have gottenlarger to me. I recently removed a mole on the back of the left popliteal fossa and that showed a compound nevus with spitzoid features. OBJECTIVE: Full-body exam today including scalp, face, neck, chest, back, abdomen, buttocks, groin, arms, legs,hands, feet, nails, perirectal and pubic area. She looks wonderful. She is 7 months with a little girl, Ros. She said that doctors are going to plan on testing the placenta for skin cancer.I had not heard of that, but I am fine with that. I am not worried for her though. Under the right axilla, she has 5 or 6 small little keloids. They look like they are ingrown hairs the become keloids.We will inject those next appointment. I would prefer not to inject while . She has some telangiectasias on the face. She has a tiny little freckle mole at the right cheondoism that is fading. She has a mole on the right neck that is capped, a little bit darker and it is unchanged from the photograph and then again the toe mole is larger, chocolate brown, but does not look worrisome. Her scars are all well healed with no sign of recurrence. She has a little pigmentation on the left upper lip. I think it is a small blood vessel. ASSESSMENT: Dysplastic nevi. History of melanoma. Seven months . PLAN: We did talk about the baby and not the bottle-feed in plastic and a few other things. I will see chad in August with Aly, her . I will do some injections in the right axilla at that time.Probably pretty strong steroid injections to calm that down, but if it is not terribly bothersome and she said it was not then I think it is best to wait till the is over. Continue excellent sun protection and will continue to follow her. 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
--- OUTSIDE RECORDS SUMMARY | 2022-05-17 08:30 | XMS_ITS | Encounter Summary ---
:1985 [facility] Address [address] [place] [address] Care Team Providers Name Role Phone Liana Tovar MD Primary Care Provider Reason for Visit Reason Comments ERRONEOUS ENTRY Encounter Details Date Type Department Care Team Description 11/11/2015 Telephone [facility] Liana Hobbs MD ERRONEOUS ENTRY [address] [facility] [address] [place] [address] [place] [id number] (Wo rk) Social History Tobacco Use Types Packs/Day Years Used Date Smoking Tobacco: Never Assessed Sex Assigned at Date Recorded Not on file documented as of this encounter Plan of Treatment Upcoming Encounters Date Type Specialty Care Team Description 05/18/2022 Appointment Rheumatology Erasmo Horn MD [address] [facility] N [id number] (Wo rk) documented as of this encounter Visit Diagnoses Not on filedocumented in this encounter Care Teams Hydraulic Technician Relationship Specialty Start Date End Date Liana Tovar MD PCP - General 03/08/15 [address] [place] [address] documented as of this encounter
--- OUTSIDE RECORDS SUMMARY | 2022-05-17 08:30 | XMS_ITS | Encounter Summary ---
:1985 Author Organization [employer] Address [address] [place] [address] Care Team Providers Name Role Phone Manjit Tovar MD Primary Care Provider Reason for Visit Reason Comments CONSULT Encounter Details Date Type Department Care Team Description 12/20/2015 Office Visit [facility] Kim Bryan, H/O urticaria (Primary Dx); [address] [facility] Milk allergy; [place] [address] [address] [facility] Allergy to tree nuts [phone] [place] [address] (Wo rk) Social History Tobacco Use Types Packs/Day Years Used Date Smoking Tobacco: Never Assessed Sex Assigned at Date Recorded Not on file documented as of this encounter Last Filed Vital Signs Vital Sign Reading Time Taken Comments Blood Pressure 110/66 12/20/2015 9:08 AM CDT Pulse 86 12/20/2015 9:08 AM CDT Temperature - - Respiratory Rate - - Oxygen Saturation 100% 12/20/2015 9:08 AM CDT Inhaled Oxygen Concentration - - Weight 88 kg (194 lb) 12/20/2015 9:08 AM CDT Height 157.5 cm (5' 2) 12/20/2015 9:08 AM CDT Body Mass Index 35.48 12/20/2015 9:08 AM CDT documented in this encounter Progress Notes Kim Bryan MD - 12/20/2015 12:41 PM CDT Progress Notes signed by Kim Bryan MD at 12/22/15 1108 Author: Kim Bryan MD Service: (none) Author Type: Physician Filed: 12/22/15 1108 Note Time: 12/20/15 1554 Status: Signed Issuing Operator: Kim Bryan MD (Physician) NAME: MANJIT JUAREZ MR#: [id number] CSN: [id number] AUTHENTICATING CLINICIAN: Kim Bryan MD CONFIRM #: [id number] LOC: 514 CLINIC PROGRESS NOTE DATE OF VISIT: 12/20/2015 : 1985 CHIEF COMPLAINT: Food allergy, urticaria. HISTORY OF PRESENT ILLNESS: Manjit was last seen in allergy clinic June [address] Piedra and returns requesting repeat food allergy testing. She has a history of urticaria, angioedema, nausea, and diarrhea within 20 minutes of consuming even small quantities of cow's milk and almonds. Food allergy testing was negative in 2013, although she remembers having delayed swelling (significance?) to milk and almond later that day. She now avoids all cow's milk and tree nuts. She tolerates peanuts. Urticaria is, fortunately, rare now, and she no longer requires daily antihistamine. She carries an EpiPen and has never had to use ja t. MEDICATION LIST: Updated in the electronic health record. OBJECTIVE: She has fair skin that is 2+ dermatographic. Her conjunctivae are clear. Her nasal mucosa is healthy and pink. Oropharynx is free of exudate. LUNGS: Clear to auscultation. Allergy testing was negative to almond [place] nut, cashew, hazelnut, pecan, walnut, and pistachio. Reviewed personally. No other allergens were tested. ASSESSMENT: History of urticaria. Temporal relation to milk and tree nut ingestion suggests that her food allergy tests may have been false negative. PLAN: Continue to avoid milk and all tree nuts. Carry EpiPen. We reviewed indication and instruction for use. Prescription renewed and coupon given. Repeat food allergy tests unlikely to aid in her prognosisor management, hence, not recommended, but I would be happy to see her back here for followup as needed. 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
--- OUTSIDE RECORDS SUMMARY | 2022-05-17 08:30 | XMS_ITS | Encounter Summary ---
:1985 Author Organization [facility] Address [address] [place] [address] Care Team Providers Name Role Phone Liana Tovar MD Primary Care Provider Reason for Visit Reason Comments Annual Exam Encounter Details Date Type Department Care Team Description 11/04/2015 Office Visit [facility] Luisa Orantes Encou nter for gynecological examination with abnormal finding (Primary Dx); Services-PAINTER TILER, DIGITAL ASSISTANT Elevated blood pressure reading without diagnosis of hypertension; [address] [address] [address] Abnormal uterine bleeding (AUB); [address], [address] [place], [place] Chest discomfort; [place] [address] Obesity due to excess calories, unspecif ied obesity severity; [id number] BCP ( control pills) in itiation; Pap smear for cervical cancer screening; Encounter for other general counseling or advice on contraception; Screening for t hyroid disorder Social History Tobacco Use Types Packs/Day Years Used Date Smoking Tobacco: Never Assessed Sex Assigned at Date Recorded Not on file documented as of this encounter Last Filed Vital Signs Vital Sign Reading Time Taken Comments Blood Pressure 146/87 11/04/2015 10:56 AM FISHING TACKLE REPAIRER Pulse 84 11/04/2015 10:56 AM FISHING TACKLE REPAIRER Temperature - - Respiratory Rate - - Oxygen Saturation - - Inhaled Oxygen Concentration - - Weight 88.9 kg (196 lb) 11/04/2015 10:51 AM FISHING TACKLE REPAIRER Height 157.5 cm (5' 2) 11/04/2015 10:51 AM FISHING TACKLE REPAIRER Body Mass Index 35.85 11/04/2015 10:51 AM FISHING TACKLE REPAIRER documented in this encounter Progress Notes Elizabeth Montiel, RN - 11/16/2015 8:16 AM CDT Quick Note: Dear Liana, I am writing to let you know that your PAP result is negative. This means that your test result wasnormal. No cancer or precancerous cells were seen. Based on current cervical cancer screening recommendations, your next PAP and HPV should be in 3 years. Continue to schedule your annual preventive exams for your overall health. If you have questions about cervical cancer screening or your test results, call Cervical Cancer Screening and Management Team [phone] Sincerely, Elizabeth Montiel on behalf of Dr. Camilla Flores, Quality Assurance Inspector [facility] Cervical Cancer Screening and Management ING TACKLE REPAIRER Luisa Orantes APRN, DIGITAL ASSISTANT - 11/04/2015 9:56 PM CST Preventive Exam & Pelvic SUBJECTIVE: Liana Juarez is a 29 y.o. female, G 0 P 0000 who presents for a routine preventive physical exam. She does have concerns today. Last physical 2012. Entered room today and patient was tearful. Concerned about hx of chest discomfort, elevated blood pressure and recent irregular bleeding. In the last 2 weeks, she has felt like her heart is beating stronger. Some chest discomfort during episodes. Noticed at bedtime or after dinner watching TV. Symptoms last for hours then resolve spontaneously. Denies SOB, HARRIS, syncope or regular heart beats during that time. No symptoms at currently. Nohistory of heart issues. No history of anxiety or panic attacks. BP: 153/98>146/87, O2 sat 100%. Advised follow-up with PCP before weekend. Placed urgent consult today. If symptoms reoccur, not resolving, to emergency department for prompt evaluation. LMP: 09-20-2014. Using Aviane continuous cycling withdrawal bleed every 3 months for history of heavybleeding and headaches during menstrual week. Menses last 4- 5 days. Wears a regular tampon and changes every couple hours. Passes dime size clots. BTB in the last couple months. Described as red clottytissue. No missed pills. No PCB. Mother history of menorrhagia, fibroids and hysterectomy. Denies smoking, DVT, FHX DVT, liver issues or breast cancer. evaluated by Dr. Tovar, PCP forheadache and lost vision. She was started on Metoprolol daily and Imitrex p.r.n. Headaches continue weekly described as low-grade. Given elevated blood pressure and headache history, I warned of increased risk for DVT/stroke with AIDA use. Recommended changing to a progesterone only method. Will stop AIDA today. Advised PUS and OV to follow to discuss report and treatment options. Advised to follow-up with PCP or neurologist for continued headaches. Problem List: Patient Active Problem List Diagnosis Date Noted ??? Elevated blood pressure reading without diagnosis of hypertension 11/04/2015 ??? Abnormal uterine bleeding (AUB) 11/04/2015 ??? Chest discomfort 11/04/2015 ??? Obesity due to excess calories 11/04/2015 ??? Dysplastic Nevus 08/22/2010 Class: Chronic ??? Bursitis Trochanteric Right 05/27/2009 Class: Chronic ??? Dysplastic Nevus 04/19/2009 Class: Chronic ??? Contraceptive Management NOS 04/15/2009 Class: Chronic ??? Menorrhagia 05/26/2008 Class: Chronic ??? Fx Bone NOS Closed 05/26/2008 Class: Historical ??? Fx Bone NOS Closed 05/26/2008 Class: Historical ??? 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 Arthritis (HRC) ??? Melanoma (HRC) hx of skin cancer ??? Rheumatoid arthritis(714.0) (HRC) ??? Obesity (HRC) ??? Elevated blood pressure reading without diagnosis of hypertension 11/04/2015 ??? Abnormal uterine bleeding (AUB) 11/04/2015 ??? Chest discomfort 11/04/2015 Adverse Drug Reactions: Pt's Adverse Drug Reactions were reviewed and updated today. Current Medications: Reviewed and updated today. Past Surgical History Procedure Laterality Date ??? Skin cancer excision Family History Problem Relation Age of Onset ??? Cancer, Colon Paternal Grandfather ??? Hypertension Mother ??? Diabetes Father ??? Hypertension Father ??? Cancer, Breast Maternal Grandmother ??? Other Mother Sexual History: Number of partner in the last year: 1. Total lifetime partners: Current Contraceptive Method: 1. Condoms are used. STD testing: She is not interested in STD today. Social History: Employment Status: [employer] Marital Status: Children: 0 Pt does not have concerns for domestic violence Tobacco: 0 ETOH: Rare Exercise: walks, eliptical. Weight gain 20#in the last 2 years. Thinks due to diet changes. Preventive Health Assessment: Pap: 2002 ASCUS, HPV neg Mammogram: None Labs: Reviewed, advised fasting labs. Lab Results Component Value Date TSH 1.86 11/04/2015 Lab Results Component Value Date/Time LAB GLUCOSE 83 04/15/2009 1128 Lab Results Component Value Date/Time CHOLESTEROL 141 05/26/2008 1200 HDL CHOLESTEROL 58 05/26/2008 1200 TRIGLYCERIDES 62 05/26/2008 1200 LDL CALCULATED 71 05/26/2008 1200 Immunization History Administered Date(s) Administered ??? H1N1 Influenza Virus 0.5ml 08/24/2009 ??? Hep B Adult Vaccine (20+ yrs) 10/23/2000 ??? Hep B Ped/adol (0-19 yrs) 11/25/2000, 05/27/2001 ??? Influenza TIV 0.5ml (36+ mos) 08/25/2005, 08/21/2006, 06/30/2008, 08/02/2010 ??? PPD Clinic 04/28/2008 ??? Refusal To Vaccinate 05/26/2008 ??? Tdap (Boostrix) 04/27/2006 Review of Systems: With the exception of any items noted above, the remainder of the complete ROS is negative. OBJECTIVE: Vital Signs: BP 146/87 mmHg Pulse 84 Ht 5' 2 (1.575 m) Wt 196 lb (88.905 kg) BMI 35.84 kg/m2 LMP 09/20/2015 General: Patient alert, in NAD. HEENT: Pupils equal, sclera clear. Oropharynx normal. Neck: Supple, without thyromegaly or mass. CV: Regular rate and rhythm. No murmur. Resp: Clear to auscultation Abdomen: Exam compromised due to increased body habitus, soft, non-tender, without masses or organomegaly Breasts: Normal appearance with no dimpling or contour changes, no nipple discharge bilateral, no masses or tenderness bilateral. Lymphatic: No neck, supraclavicular, axillary or groin lymphadenopathy. Lower Extremities: FROM, normal gait without edema, lesions, or deformity. Genitourinary: External genitalia: normal without lesions. Vagina: normal appearing vaginal epithelium. No discharge. No lesions. Cervix: No CMT, normal appearance. No discharge or lesions. Diagnostic Pap obtained. Uterus: Exam compromised due to increased body habitus, normal size, shape, consistency and nontender. Adenexa: Exam compromised due to increased body habitus, normal size, nontender, no masses. Anus: normal, no hemorrhoids, Rectal: deferred. Bladder: Nontender, no palpable masses Urethra: Nontender, no discharge Skin: multiple healed scars and keloids from prior skin biopsies. No rashes. Neuro: Motor & sensory function all intact. Psychiatric: Alert & oriented with normal affect and insight. Patient does not appear depressed.Appeared anxious at the beginning of appointment but decreased. ASSESSMENT: Routine preventive exam Elevated Blood Pressure AUB Contraceptive management History of chest discomfort History of headache with aura Obesity PLAN: Medications: Micronor #3 months, no refills. Changed control pill from Aviane to progesterone only pill Micronor given elevated blood pressure and history of headache with vision loss. Labs: Dx pap, CBC, TSH PUS: AUB OV with MD to follow to review ultrasound report and discuss treatment options for irregular bleeding. BMI reviewed. Healthy diet and regular exercise advised. Wt loss advised. Referral to PCP today for elevated BP and history of chest discomfort symptoms. If symptoms reoccur,not resolving, to ED pending apt. Referral to neurology for further headache evaluation. RTC 1 year, sooner with any concerns. Dictation disclaimer: Some notes are completed with voice-recognition dictation software. Typographical errors may result. Please contact me via [employer] staff message if you note any errors requiring clarification. ING TACKLE REPAIRER documented in this encounter Miscellaneous Notes Miscellaneous - 10/04/2016 8:31 PM CSTNotes Recorded by Elizabeth Montiel RN on 11/16/2015 at 8:16 Kulwinder Gaines,I am writing to let you know that your PAP result is negative. This means that your test result was normal. No cancer or precancerous cells were seen.Based on current cervical cancer screening recommendations, your next PAP and HPV should be in 3 years. Continue to schedule your annual preventive exams for your overall health.If you have questions about cervical cancer screening or your test results, callCervical Cancer Screening and Management Team [phone],Dia R Blake on behalf ofDr. Camilla Flores, Medical DirectorPark Mirtha Cervical Cancer Screening and Management ING TACKLE REPAIRER documented in this encounter Plan of Treatment Upcoming Encounters Date Type Specialty Care Team Description 05/18/2022 Appointment Rheumatology Erasmo Horn MD [address] [place] [address] (Wo rk) documented as of this encounter Procedures Procedure Name Priority Date/Time Associated Comments Diagnosis PAP TEST ORDER Routine 11/04/2015 12:05 PM Pap smear for Resul ts for this FISHING TACKLE REPAIRER cervical cancer procedure ar e in screening the results section. ANATOMICAL PATH Routine 11/04/2015 12:05 PM Resul ts for this LIQUID BASED FISHING TACKLE REPAIRER procedure are i n the results section. documented in this encounter Results Pap Smear (11/04/2015 12:05 PM FISHING TACKLE REPAIRER) Specimen (Source) Anatomical Collection Method Collection Time Re ceived Time Location / / Volume Laterality 11/04/2015 12:05 PM FISHING TACKLE REPAIRER Narrative HP CONVERSION - 11/14/2015 9:33 AM CDT FINAL GYNECOLOGICAL CYTOLOGY REPORT Pathology #: [id number] ?Date Obtained: 11/04/2015 ? Date Received: 11/05/2015 INTERPRETATION/RESULTS: Negative for Intraepithelial Lesion or M alignancy. SPECIMEN ADEQUACY: Satisfactory for Evaluation. ??Endocervi karina cells/transformation zone component present. Verified on 11/14/2015 ??by MARY KENNEDY MD (electronic signature) CLINICAL NOTES: ?Abnormal bleeding: No, LMP: 2 12/2015, Menstrual status: None ?Apply, Current form of therapy: Hormone Therapy LIQUID BASED PAP SMEAR SPECIMEN TYPE: ?ROUTINE CERVICAL PAP TEST PLEASE NOTE: The pap smear is a screening test design ed to aid in the detection of cervical cancer and its pre cursor lesions. It is not a diagnostic procedure and prem uld not be used as the sole means of detecting cervical cancer. Both false-positive and false-negative report s may occur. Performed at [facility], [address] [facility], [place] [address] Transcriptions 10/04/2016 8:31 PM CSTNotes Recorded by Elizabeth Montiel RN on 11/16/2015 at 8:16 Kulwinder Gaines, I am writing to let you know that your PAP result is negative. This means that your test result was normal. No cancer or precancerous cells were seen. Based on current cervical cancer screeni ng recommendations, your next PAP and HPV should be in 3 years. Continue to schedule your annual preventive exams for your overall health. If you have questions about cervical can cer screening or your test results, call Cervical Cancer Screening and Management Team [phone],Dia R Blake on behalf ofDr. Camilla Flores, Quality Assurance Inspector [facility] Cervical Cancer Screening and Management Luisa Orantes APRN, CNP LAB_1 Performing Organization Address City/State/ZIP Code Phon e Number HP CONVERSION Pap Test Order (11/04/2015 12:05 PM FISHING TACKLE REPAIRER) [facility] Method Time Signature Pap Smear Collected HP CONVERSION Monolayer tracking test Specimen Anatomical Collection Method Collection Time Receive d Time (Source) Location / / Volume Laterality 11/04/2015 12:05 11/05/2015 9:01 PM FISHING TACKLE REPAIRER AM FISHING TACKLE REPAIRER Luisa Orantes APRN, JESUS LAB_1 Performing Organization Address City/[facility]/ZIP Code Phon e Number HP CONVERSION documented in this encounter Visit Diagnoses Diagnosis Encounter for other general counseling o r advice on contraception Elevated blood pressure reading without diagnosis of hypertension Abnormal uterine bleeding (AUB) Chest discomfort Other chest pain Obesity due to excess calories, unspecif ied obesity severity (HRC) BCP ( control pills) initiation General counseling for prescription of o ral contraceptives Pap smear for cervical cancer screening Screening for malignant neoplasm of the cervix documented in this encounter Care Teams Spinning Mule Operator Relationship Specialty Start Date End Date Liana Tovar MD PCP - General 03/08/[address] [place], [place] [address] documented as of this encounter
--- OUTSIDE RECORDS SUMMARY | 2022-05-17 08:30 | XMS_ITS | Encounter Summary ---
:1985 Author Organization [employer] Address [address] [place] [address] Care Team Providers Name Role Phone Liana Tovar MD Primary Care Provider Reason for Visit Reason Comments Follow-up Encounter Details Date Type Department Care Team Description 11/11/2015 Office Visit [facility] Luisa Orantes Abnor mal uterine bleeding (AUB) (Primary Dx); Services-CARD SERVICES SPECIALIST LIBRARY TECHNOLOGY INSTRUCTOR, JESUS BCP ( control pills) initiation [address] [facility], [address] [place] [phone] Social History Tobacco Use Types Packs/Day Years Used Date Smoking Tobacco: Never Assessed Sex Assigned at Date Recorded Not on file documented as of this encounter Last Filed Vital Signs Vital Sign Reading Time Taken Comments Blood Pressure 131/79 11/11/2015 1:32 PM CDT Pulse 89 11/11/2015 1:32 PM CDT Temperature - - Respiratory Rate - - Oxygen Saturation - - Inhaled Oxygen Concentration - - Weight 88.3 kg (194 lb 9.6 oz) 11/11/2015 1:30 PM CDT Height - - Body Mass Index 35.59 11/08/2015 12:50 PM CDT documented in this encounter Progress Notes Luisa Orantes, ANCELMO, FLAT KNITTER HELPER - 11/11/2015 2:00 PM CDT Chief Complaint: Follow-up ultrasound SUBJECTIVE: Liana Juarez is a 29 y.o. female who presents to clinic for follow-up ultrasound appointment. She is accompanied by her . 11-04-2015 patient was seen for an annual exam, see appointment. Using Aviane continuous cycling withdrawal bleed every 3 months for history of heavy bleeding and headaches during menstrual week. Menseslasting 4-5 days. Wears a regular tampon and changes every couple hours. Passes dime size clots. BTBin the last couple months. Described as red clotty tissue. No missed pills. No PCB. Mother history of menorrhagia, fibroids and hysterectomy. Her blood pressure was elevated at appointment and recommended changing to a progesterone only pill or Mirena IUD. Ordered PUS. 11-05-[address] Gaines, PCP for elevated blood pressure and chest pain. EKG negative. 11-08-2015 cardiology consult. Told benign palpita tions. Holter monitor ordered. Advised to decrease caffeine use. Continue current beta leigh and if symptoms continue may consider increasing beta leigh. PUS today normal, EMS: 3 mm. Adnexa unremarkable bilateral. BP lower today 130s/80s. Discussed continuing with a progesterone only option. She is concerned about continued BTB. Discussed hormonal options for management including Depo- Provera, progesterone only pill or Mirena IUD. Discouraged Nexplanongiven potential spotting side effect. Gave full Mirena IUD consult. Warned she may also have some BTB with this device as well. For now, will continue with the progesterone only pill. Refill ??1 year. Medical/Surgical history: Past Medical History Diagnosis Date ??? 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 Bursitis Trochanteric Right 05/27/2009 ??? Dysplastic Nevus 08/22/2010 LW Modifier: face ??? Obesity due to excess calories 11/04/2015 ??? HARRIS (headache) Past Surgical History Procedure Laterality Date ??? Skin cancer excision OBHX: Adverse Drug Reactions: Reviewed and updated. Medications: Reviewed and updated. OBJECTIVE: Vital Signs: BP 134/83 mmHg Pulse 94 Wt 194 lb 9.6 oz (88.27 kg) LMP 09/20/2015 General: Patient alert, in NAD. Psychiatric: Alert & oriented with normal affect and insight. Patient does not appear depressed or anxious. ASSESSMENT: DUB PLAN: Discussed normal PUS. Patient would like to continue with current progesterone only pill for menstrual management and contraception. Micronor #3 months, 3 refills. She may consider Mirena IUD in the future. Full Mirena IUD consult today. Risks, benefits, side effects, insertion and removal procedures of the device. The risks include infection, bleeding, malpositioning of the IUD, uterine perforation whichmay require surgery to remove. Abnormal bleeding is normal for 3-6 months after IUD insertion. Cramping is also common after IUD insertion. - A Mirena brosure was given to pt. -Will check insurance for coverage and call to schedule with menses. -Place with menses. -Use control pill for contraception until IUD can be placed. -Would advise premedicate with Cytotec the night prior to insertion. -Premedicate with ibuprofen or tylenol before procedure for pain. This entire visit was spent in [id number] counseling. The TT: 30 and CT: 25. We discussed bleedingprofile, pelvic ultrasound findings and Mirena IUD consult. The risks/benefits/side effects of the device were reviewed as well as the insertion and removal procedures. Dictation disclaimer: Some notes are completed with voice-recognition dictation software. Typographical errors may result. Please contact me via [employer] staff message if you note any errors requiring clarification. documented in this encounter Plan of Treatment Upcoming Encounters Date Type Specialty Care Team Description 05/18/2022 Appointment Rheumatology Erasmo Horn MD [address] [facility] [place] [address] (Wo rk) documented as of this encounter Visit Diagnoses Diagnosis Abnormal uterine bleeding (AUB) - Primar y BCP ( control pills) initiation General counseling for prescription of o ral contraceptives documented in this encounter Care Teams Etl Database Developer Relationship Specialty Start Date End Date Liana Tovar MD PCP - General 03/08/[address] [place] [address] documented as of this encounter
--- OUTSIDE RECORDS SUMMARY | 2022-05-17 08:30 | XMS_ITS | Encounter Summary ---
:1985 Author Organization [facility] Address [address] [place] [address] Care Team Providers Name Role Phone Liana Tovar MD Primary Care Provider Encounter Details Date Type Department Care Team Description 11/04/2015 Lab Visit [facility] ([facility]) [address] [place] [phone] Social History Tobacco Use Types Packs/Day Years Used Date Smoking Tobacco: Never Assessed Sex Assigned at Date Recorded Not on file documented as of this encounter Miscellaneous Notes Miscellaneous - 10/04/2016 8:51 PM CSTNotes Recorded by Luisa Orantes APRN, CNP on 11/07/2015 at 6:25 PMlab results normal. Sent message to pt via bulletn.. MS-MEAT STUFFER OLOGIC TECHNOLOGY TEACHER Miscellaneous - 10/04/2016 8:51 PM CSTNotes Recorded by Luisa Orantes APRN, CNP on 11/07/2015 at 6:25 PMlab results normal. Sent message to pt via bulletn.. MS-MEAT STUFFER OLOGIC TECHNOLOGY TEACHER Miscellaneous - 10/04/2016 8:51 PM CSTNotes Recorded by Luisa Orantes APRN, CNP on 11/07/2015 at 6:25 PMlab results normal. Sent message to pt via bulletn.. MS-MEAT STUFFER OLOGIC TECHNOLOGY TEACHER documented in this encounter Plan of Treatment Upcoming Encounters Date Type Specialty Care Team Description 05/18/2022 Appointment Rheumatology Erasmo Horn MD [address] [facility] [place] [address] (Wo rk) documented as of this encounter Procedures Procedure Name Priority Date/Time Associated Comments Diagnosis TSH AND FREE T4 (FRT4 Routine 11/04/2015 11:44 Abnormal uterin e Results for this IF TSH ABNORM) AM RADIOLOGIC TECHNOLOGY TEACHER bleeding (AUB) procedure a re in the results section. COMPLETE BLOOD Routine 11/04/2015 11:44 Abnormal uterine Resul ts for this COUNT-W/DIFF AM RADIOLOGIC TECHNOLOGY TEACHER bleeding (AUB) procedure are in the results section. DIFFERENTIAL Routine 11/04/2015 11:44 Results for this AM RADIOLOGIC TECHNOLOGY TEACHER procedure are i n the results section. documented in this encounter Results Differential (11/04/2015 11:44 AM RADIOLOGIC TECHNOLOGY TEACHER) Analysis Performed At Patho logist Time Signature Absolute 5.3 1.8 - 8.0 HP CONVERSION Neutrophils k/cmm Absolute 2.2 1.1 - 4.0 HP CONVERSION Lymphocytes k/cmm Absolute 0.3 0.2 - 0.8 HP CONVERSION Monocytes k/cmm Absolute 0.1 0.0 - 0.5 HP CONVERSION Eosinophils k/cmm Absolute 0.0 0.0 - 0.2 HP CONVERSION Basophils k/cmm Immature 0.4 0.0 - 0.5 HP CONVERSION Granulocytes % Specimen Anatomical Collection Method Collection Time Receive d Time (Source) Location / / Volume Laterality 11/04/2015 11:44 11/04/2015 2:38 AM RADIOLOGIC TECHNOLOGY TEACHER PM RADIOLOGIC TECHNOLOGY TEACHER Narrative HP CONVERSION - 11/04/2015 3:11 PM RADIOLOGIC TECHNOLOGY TEACHER Performed at [facility], [address] [place] [address] CLIA number [id number] Transcriptions 10/04/2016 8:51 PM CSTNotes Recorded by Luisa Orantes APRN, CNP on 11/07/2015 at 6:25 PMlab results normal. Sent message to pt via bulletn.. -JESUS Luisa Orantes APRN, CNP LAB_1 Performing Organization Address City/State/ZIP Code Phon e Number HP CONVERSION TSH AND FREE T4 (FRT4 IF TSH ABNORM) (11/04/2015 11:44 AM RADIOLOGIC TECHNOLOGY TEACHER) athologist Signature Thyroid 1.86 0.20 - HP CONVERSION Stimulating 4.50 Hormone uIU/mL Specimen Anatomical Collection Method Collection Time Receive d Time (Source) Location / / Volume Laterality 11/04/2015 11:44 11/04/2015 7:29 AM RADIOLOGIC TECHNOLOGY TEACHER PM RADIOLOGIC TECHNOLOGY TEACHER Narrative HP CONVERSION - 11/04/2015 8:30 PM RADIOLOGIC TECHNOLOGY TEACHER Performed at [facility], [facility] [place] [address] CLIA number [id number] Transcriptions 10/04/2016 8:51 PM CSTNotes Recorded by Luisa Orantes APRN, CNP on 11/07/2015 at 6:25 PMlab results normal. Sent message to pt via bulletn.. MS-JESUS Luisa Orantes APRN, CNP LAB_1 Performing Organization Address City/State/ZIP Code Phon e Number HP CONVERSION Complete Blood Count W/Diff (11/04/2015 11:44 AM RADIOLOGIC TECHNOLOGY TEACHER) athologist Signature White Blood Cell 7.9 3.8 - 11.0 HP CONVERSIO N Count k/cmm Red Blood Cell 4.78 3.70 - HP CONVERSION Count 5.20 m/cmm Hemoglobin 13.6 11.8 - HP CONVERSION 15.5 g/dL Hematocrit 42.2 35.0 - HP CONVERSION 46.0 % Mean Corpuscular 88.3 80.0 - HP CONVERSION Volume 100.0 fL RDW 12.8 11.0 - HP CONVERSION 15.0 % Platelet Count 345 140 - 450 HP CONVERSION k/cmm Specimen Anatomical Collection Method Collection Time Receive d Time (Source) Location / / Volume Laterality 11/04/2015 11:44 11/04/2015 2:38 AM RADIOLOGIC TECHNOLOGY TEACHER PM RADIOLOGIC TECHNOLOGY TEACHER Narrative HP CONVERSION - 11/04/2015 3:11 PM RADIOLOGIC TECHNOLOGY TEACHER Performed at [facility], [address] [place] [address] CLIA number [id number] Transcriptions 10/04/2016 8:51 PM CSTNotes Recorded by Luisa Orantes APRN, CNP on 11/07/2015 at 6:25 PMlab results normal. Sent message to pt via bulletn.. MS-MEAT STUFFER Luisa Orantes JESUS AG LAB_1 Performing Organization Address City/State/ZIP Code Phon e Number HP CONVERSION documented in this encounter Visit Diagnoses Diagnosis Abnormal uterine bleeding (AUB) documented in this encounter Care Teams Artificial Cherry Maker Relationship Specialty Start Date End Date Liana Tovar MD PCP - General 03/08/[address] [place] [address] documented as of this encounter
--- OUTSIDE RECORDS SUMMARY | 2022-05-17 08:30 | XMS_ITS | Encounter Summary ---
:1985 Author Organization [employer] Address [address] [place] [address] Care Team Providers Name Role Phone Liana Tovar MD Primary Care Provider Encounter Details Date Type Department Care Team Description 11/11/2015 Imaging [place] [facility] Abnormal uterine bleeding [id number] (AUB) [place] [address] Social History Tobacco Use Types Packs/Day Years Used Date Smoking Tobacco: Never Assessed Sex Assigned at Date Recorded Not on file documented as of this encounter Progress Notes Luisa Orantes APRN, CNP - 11/11/2015 9:08 PM CDT Quick Note: US nl, EMS: 3 mm. US reviewed with patient at appointment today. -FINANCIAL COST ANALYST S HAND SUPERVISOR documented in this encounter Miscellaneous Notes Miscellaneous - 10/04/2016 8:38 PM CSTNotes Recorded by Luisa Orantes APRN, CNP on 11/11/2015 at 9:08 PMUS nl, EMS: 3 mm. US reviewed with patient at appointment today. MS-FINANCIAL COST ANALYST S HAND SUPERVISOR documented in this encounter Plan of Treatment Upcoming Encounters Date Type Specialty Care Team Description 05/18/2022 Appointment Rheumatology Erasmo Horn MD [address] [facility] [place] [address] (Wo rk) documented as of this encounter Procedures Procedure Name Priority Date/Time Associated Diagnosis Comme nts US PELVIC COMPLETE Routine 11/11/2015 11:46 AM Abnormal uterin e Results for this W EV CDT bleeding (AUB) procedure are in the results section. documented in this encounter Results US Pelvic Complete W EV (11/11/2015 11:46 AM CDT) Anatomical Region Laterality Modality Pelvis Other Specimen (Source) Anatomical Location Collection Method / Collectio n Time Received Time / Laterality Volume Impressions 11/11/2015 11:55 AM CDT IMPRESSION: Unremarkable sonographic appearance of the pelvis. Narrative 11/11/2015 11:55 AM CDT COMPARISON: ??None. TECHNIQUE: ??Transabdominal and transvag inal imaging was performed. FINDINGS: ?? Uterus: Measures 5.3 x 3.3 x 4.5 cm. Alfred ears unremarkable. Retroflexed position. Endometrium: Measures up to 0.3 cm in th ickness. ?? Right Ovary: Measures 2.5 x 1.2 x 1.6 cm and Appears unremarkable Right Ovary Blood Flow: Present. Left Ovary: Measures 3.5 x 1.8 x 1.6 cm and Appears unremarkable Left Ovary Blood Flow: Present. Free Fluid: yes, simple. Procedure Note Eduin Barnett MD - 02/13/2016Formatti ng of this note might be different from the original. COMPARISON: None. TECHNIQUE: Transabdominal and transvagin al imaging was performed. FINDINGS: Uterus: Measures 5.3 x 3.3 x 4.5 cm. Alfred ears unremarkable. Retroflexed position. Endometrium: Measures up to 0.3 cm in th ickness. Right Ovary: Measures 2.5 x 1.2 x 1.6 cm and Appears unremarkable Right Ovary Blood Flow: Present. Left Ovary: Measures 3.5 x 1.8 x 1.6 cm and Appears unremarkable Left Ovary Blood Flow: Present. Free Fluid: yes, simple. IMPRESSION IMPRESSION: Unremarkable sonographic alfred earance of the pelvis. Transcriptions Eduin Barnett MD - 10/04/2016 8:38 PM CSTNotes Recorded by Luisa Orantes APRN, CNP on 11/11/2015 at 9:08 PMUS nl, EMS: 3 mm. US reviewed with patient at appointment today. MS-FINANCIAL COST ANALYST Luisa Orantes APRN, CNP RAD US documented in this encounter Visit Diagnoses Diagnosis Abnormal uterine bleeding (AUB) documented in this encounter Care Teams Legal Collector Relationship Specialty Start Date End Date Liana Tovar MD PCP - General 03/08/15 [address] [place] [address] documented as of this encounter
--- OUTSIDE RECORDS SUMMARY | 2022-05-17 08:30 | XMS_ITS | Encounter Summary ---
:1985 Author Organization [facility] Address [address] [place] [address] Care Team Providers Name Role Phone Liana Tovar MD Primary Care Provider Encounter Details Date Type Department Care Team Description 11/09/2015 [facility] Chest discomfort Electrocardiogram, Holter, Event Recorder [address] [place] [address] Social History Tobacco Use Types Packs/Day Years Used Date Smoking Tobacco: Never Assessed Sex Assigned at Date Recorded Not on file documented as of this encounter Medications at Time of Discharge Medication Sig Dispensed Refills Start Date End Date cholecalciferol Take 1 tablet by 90 3 01/24/2011 (VITAMIND3) 2000 UNITS mouth daily (every tablet 24 hours). ondansetron (ZOFRAN-ODT) Take 1 tablet by 30 tablet 0 11/19 4 MG disintegrating mouth every 8 hours tablet as needed for Nausea or Vomiting. Dissolve tablet on tongue SUMAtriptan (IMITREX) 25 Take 1 tablet by 9 tablet 12 03/1803/17/2016 MG tablet mouth as needed for Migraine. May repeat after 2 hours if needed. Max 8 tabs/24 hours. Max 9 days/month ascorbic acid (VITAMINC) Take 1,000 mg by 0 08/0807/11/2021 500 MG tablet mouth daily (every 24 hours). Calcium Carbonate Take by mouth. pt 0 08/08/2011 07/11/2021 (CALCIUM 600 OR) unsure of dose EPINEPHrine (AUVI-Q) 0.3 Inject 0.3 mLs into 2 each 12/20/2015 MG/0.3ML injection the muscle as needed for Anaphylaxis. May Repeat Meloxicam (aka MOBIC) Take 15 mg by mouth 0 06/2703/03/2016 tablet TABS daily (every 24 hours). Meloxicam (MOBIC) 15 MG Take 15 mg by mouth 0 08/201308/18/2016 tablet Daily. Reported on 08/18/2016 Indications: PN: metoPROLOL succinate (AKA Take 1 tablet by 90 tablet 02/2511/25/2015 TOPROL XL) 50 MG 24 hour mouth daily (every release tablet 24 hours). take before bed Norethindrone, Take 1 tablet by 84 tablet 0 11/04/201510/25 Contraceptive, (AKA mouth daily (every MICRONOR) 0.35 MG 24 hours). Follow tabletIndications: BCP package directions ( control pills) initiation sulfaSALAzine (aka Take 1,500 mg by 0 06/27/2014 03/03/2016 AZULFIDINE) tablet mouth 2 times daily. sulfaSALAzine Take 1,500 mg by 0 06/27/201403/16 (AZULFIDINE) 500 MG mouth 2 times daily. tablet documented as of this encounter Plan of Treatment Upcoming Encounters Date Type Specialty Care Team Description 05/18/2022 Appointment Rheumatology Erasmo Horn MD [address] [facility] [address] [address] (Wo rk) documented as of this encounter Procedures Procedure Name Priority Date/Time Associated Diagnosis Comme nts 24 HOUR HOLTER Routine 11/08/2015 2:08 PM Chest discomfort Res ults for this MONITOR CDT procedure are i n the results section. documented in this encounter Results 24 Hour Holter Monitor (11/08/2015 2:08 PM CDT) Specimen (Source) Anatomical Collection Method Collection Time Re ceived Time Location / / Volume Laterality 11/08/2015 2:08 PM CDT Narrative PN MUSE - 11/15/2015 11:38 AM CDT dates of service: 11/08/15 - 11/09/15 Sinus rhythm. ??Beats were in bradycardi a (< 1%) and tachycardia (14%). ?Heart rates range from 56-125 bpm. ?? Mean HR: 86 bpm. ??Max R-R: 1.25 sec. One PAC. Occasional, mostly unifocal PVCs (844). The patient reported, big thump (5). ? ?All of the symptoms correlated with NSR ??(90-94 bpm) and PVCs. CH2=V1; CH3=V3; CH1=V5/KB Liana Tovar MD PN ECG ORDERABLES Performing Organization Address City/State/ZIP Code Phon e Number PN MUSE documented in this encounter Visit Diagnoses Diagnosis Chest discomfort Other chest pain documented in this encounter Care Teams Digital Sales Executive Relationship Specialty Start Date End Date Liana Tovar MD PCP - General 03/08/[address] [place] [address] documented as of this encounter
--- OUTSIDE RECORDS SUMMARY | 2022-05-17 08:30 | XMS_ITS | Encounter Summary ---
:1985 Author Organization [employer] Address [address] [place] [address] Care Team Providers Name Role Phone Liana Tovar MD Primary Care Provider Reason for Visit Reason Comments SHOULDER PAIN ARM PAIN Encounter Details Date Type Department Care Team Description 09/20/2015 Office Visit 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) [id number] [place] [address] [place] [address] [place] [phone] [address] Social History Tobacco Use Types Packs/Day Years Used Date Smoking Tobacco: Never Assessed Sex Assigned at Date Recorded Not on file documented as of this encounter Last Filed Vital Signs Vital Sign Reading Time Taken Comments Blood Pressure 104/66 09/20/2015 2:20 PM AUTOMOTIVE DIAGNOSTIC TECHNICIAN Pulse 88 09/20/2015 2:20 PM AUTOMOTIVE DIAGNOSTIC TECHNICIAN Temperature - - Respiratory Rate - - Oxygen Saturation - - Inhaled Oxygen Concentration - - Weight 89.5 kg (197 lb 6 oz) 09/20/2015 2:20 PM AUTOMOTIVE DIAGNOSTIC TECHNICIAN Height - - Body Mass Index 36.1 07/17/2014 10:02 AM AUTOMOTIVE DIAGNOSTIC TECHNICIAN documented in this encounter Progress Notes Liana Tovar MD - 09/20/2015 2:56 PM CST CLINIC VISIT NOTE SUBJECTIVE: Shoulder Pain: Patient complaints of left shoulder pain. The pain is described as aching. The onset of the pain was sudden, not related to any specific activity, awoke with it. Left hand was numb but is jozef now. The pain occurs all the time. Location is anterior. Symptoms are aggravated by work at or above shoulder height. Symptoms are diminished by rest. . No stiffness, no swelling is reported. 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 No hx of shoulder issues in the past. Pain is 2/10 at rest, 5-6/10. Showering is difficult. Right handed. Past medical history, social history, family history, and medications were reviewed and updated as appropriate. OBJECTIVE: BP 104/66 mmHg Pulse 88 Wt 197 lb 6 oz (89.529 kg) Gen: NAD, A &Ox3 HEENT: normocephalic, atraumatic, hearing grossly normal Musculoskeletal: Negative Neer's, Hawkin's, lift off. Negative Apprehension testing. Negative winging of the scapulae. No tenderness over the AC joint, sternoclavicular joint. tenderness over the biceptendon, and pain with resisted internal rotation with the elbow bent at 90??, none of the upper trapezius, rhomboids. Full shoulder ROM b/l. 5/5 strength b/l. Psy: well groomed, Pleasant affect. ASSESSMENT/PLAN: Liana was seen today for shoulder pain and arm pain. Diagnoses and associated orders for this visit: Biceps tendinitis, left I have the patient a handout from the Patient Advisor with information about this and exercises todo at home until she can meet with PT. She will continue meloxicam for her JRA. Flexeril p.r.n. at night. Discussed that PT is really the mainstay of therapy. - cyclobenzaprine (FLEXERIL) 10 mg tablet; Take 1 tablet by mouth nightly. - PHYSICAL THERAPY CONSULT ADULT/PEDS (AMB); Future Arthritis Juvenile Rheumatoid Chronic noted, on chronic meloxicam. Continue this. 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
--- OUTSIDE RECORDS SUMMARY | 2022-05-17 08:30 | XMS_ITS | Encounter Summary ---
:1985 Author Organization [employer] Address [address] [place] [address] Care Team Providers Name Role Phone Liana Tovar MD Primary Care Provider Reason for Visit Reason Comments Shoulder Problem Encounter Details Date Type Department Care Team Description 09/30/2015 Office Visit [facility] Herson Limon, Bi ceps tendinitis, left (Primary Dx); Therapy PT Acute pain of left shoulder [address] [address] [address] [place] [address] [place], [place] [phone] (Wo rk) Social History Tobacco Use Types Packs/Day Years Used Date Smoking Tobacco: Never Assessed Sex Assigned at Date Recorded Not on file documented as of this encounter Progress Notes Herson Limon, PT - 12/15/2015 2:23 PM CDT Encounter Date: 09/30/2015 Pt : 1985 [facility] Physical Therapy Discharge Summary Patient was seen for therapy from 09/22/15 through 09/30/15. Patient was compliant with attendance and therapy recommendations. Total Visits: 3 Reason for discharge: Therapy goals met, or therapist expects patient to meet goals through home program. Outcome measures at discharge: PT Program:Musculoskeletal - Shoulder QuickDASH (0-100, 0 being best): 0 (34.1) Attainment of goals: The following is a review of the therapy goals: I feel much better. I actually have no pain. Patient reports to be 90% better as she has no pain with any ADL or at night, but has not slept on the left side yet. Discharge recommendations: Patient will continue to work independently with home program/self management strategies. Herson Limon, PT - 09/30/2015 4:02 PM CST Encounter date: 09/30/2015 Pt : 1985 [facility] Physical Therapy Progress Note Visit Number: 3 Initial Certification Period: 09/22/2015 to 11/22/15 Referring Provider: Liana Tovar Visit Diagnosis: Diagnosis ICD-10-CM ICD-9-CM 1. Biceps tendinitis, left M75.22 726.12 2. Acute pain of left shoulder M25.512 719.41 Precautions: none SUBJECTIVE: I feel much better. I actually have no pain. Patient reports to be 90% better as she has no pain with any ADL or at night, but has not slept on the left side yet. OBJECTIVE Current Objective Findings: Quick Dash score: 0 (initial 34.1) Treatment/Education Today: 1. Ultrasound: 1.6 w/cm2,1 MHz, 100% for 8 minutes for 8 minutes to the insertion of the supraspinatus tendon for the total of 9 minutes with prep time. 2. Manual therapy x 15 minutes: GH joint mobs: inferio-posterior glides, gr. III, III+ oscillated inflexion and abduction 75-120 degrees to decrease inflammation/pain and improve joint mobility Rx was tolerated well. Timed Code Treatment Minutes: 24 Total Treatment Minutes: 26 Current Home Exercise Program List: - patient was instructed in possible etiology of her symptoms, shoulder anatomy and the following HEP: shoulder retraction and behind the back. I also recommended that she avoids any activity that causes pain and applies ice to the affected area. ASSESSMENT/PROGRESS TOWARD GOALS: Doing very well. Reports to be 90% better. Functional Goals/Outcomes: 1. Patient will regain pain free AROM of the shoulder 2. She will be able to sleep on the left side without pain 3. Patient will be able to do all ADL including reaching behind and across her body without pain Goals to be achieved within 4-6 week time frame. Plan: At this point, patient wishes to con't on her own with RC stretches. Goals achieved. 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 [place] [address] (Wo rk) documented as of this encounter Visit Diagnoses Diagnosis Biceps tendinitis, left - Primary Acute pain of left shoulder documented in this encounter Care Teams Front Desk Clerk Relationship Specialty Start Date End Date Liana Tovar MD PCP - General 03/08/[address] [place] [address] documented as of this encounter
--- OUTSIDE RECORDS SUMMARY | 2022-05-17 08:30 | XMS_ITS | Encounter Summary ---
:1985 Author Organization [employer] Address [address] [place] [address] Care Team Providers Name Role Phone Liana Tovar MD Primary Care Provider Reason for Referral Specialty Diagnoses / Procedures Referred By Contact Refer red To Contact Luisa Orantes APR N, OPERATIONS DISPATCHER [address] [place] [address] Referral ID Status Reason Start Date Expiration Date Visits Requ ested Visits Authorized ER [facility] Reason for Visit Reason Comments HYPERTENSION TACHYCARDIA Encounter Details Date Type Department Care Team Description 11/05/2015 Office Visit oRwdy Andujar Liana Tovar, Palpit ation (Primary Dx); Medicine Chest discomfort [address] [place] [address] [place] [phone] [id number] Social History Tobacco Use Types Packs/Day Years Used Date Smoking Tobacco: Never Assessed Sex Assigned at Date Recorded Not on file documented as of this encounter Last Filed Vital Signs Vital Sign Reading Time Taken Comments Blood Pressure 124/93 11/05/2015 2:18 PM C[facility]TER [facility] Pulse 91 11/05/2015 2:18 PM [facility] Temperature - - Respiratory Rate - - Oxygen Saturation - - Inhaled Oxygen Concentration - - Weight 88.9 kg (196 lb) 11/05/2015 2:18 PM [facility] Height - - Body Mass Index 35.85 11/04/2015 10:51 AM [facility] documented in this encounter Progress Notes Liana Tovar MD - 11/05/2015 5:20 PM CST CLINIC VISIT NOTE SUBJECTIVE: Patient is a 29 y.o. female here today for palpitations. In the last 2 weeks, she has felt like her heart is beating stronger and faster. No CP. Episodes last for several hours, usually at night or evening. Wakes up at night and then can't call asleep because she feels like she just exercised. Feels like it beating fast now. No history of heart issues. No history of anxiety or panic attacks, does feel anxious sometimes. BP yesterday was 153/98>146/87. [facility] as well. Is on metoprolol for her headaches. She takes that regularly. Denies SOB, new HARRIS, syncope. Occasinally feels a stronger beat than the rest but not skipping beats. This started around the same time that she had a bad cold. CBC, tsh normal yesterday. Hx of + TPO ab. Pulse was normal yesterday in clinic and she was feeling symptoms. The patient denies any constipation, diarrhea (once last week), tremors, fatigue, dry skin hair or nails. Feels hot recently and fatigued. Menses are regular but heavy recently. Past medical history, social history, family history, and medications were reviewed and updated as appropriate. OBJECTIVE: BP 124/93 mmHg Pulse 91 Wt 196 lb (88.905 kg) LMP 09/20/2015 Gen: NAD, alert HEENT: normocephalic, atraumatic, hearing grossly normal Heart: RRR, no murmur Lungs: CTAB, Good respiratory efforts. Pulses: Radial pulse is normal and symmetric. Skin: her face does seem flushed Psy: well groomed, Pleasant affect. Nonanxious appearing ASSESSMENT/PLAN: Liana was seen today for hypertension(elevated blood pressure) and tachycardia. Diagnoses and all orders for this visit: Palpitation Chest discomfort Again, she denies chest pain, shortness of breath, nausea. The chest discomfort is more just feelinglike her heart is beating hard. EKG normal today, however she was not symptomatic during the episode. PERICO 7 is 3, so certainly cannot blame this on anxiety. Her TSH and CBC were normal yesterday through her OB. We discussed that this is likely something that will resolve on its own and we will never know what caused it. Also discussed that it is very unlikely that something serious is causing this however, I would like to do a Holter and have her meet with cardiology to determine if any other testing needs to be done. She is already on a beta leigh for headaches, we did not change the dose of that today. She understands that if she develops any new associated symptoms, she will be seen urgently. Orders: - 24 Hour Holter Monitor; Future - CARDIOLOGY CONSULT ADULT (AMB); Future Liana Tovar MD 2:41 PM 11/05/2015 Please note that parts of this document were created with voice recognition dictation. Typoraphical errors may result. ER [facility] documented in this encounter Plan of Treatment Upcoming Encounters Date Type Specialty Care Team Description 05/18/2022 Appointment Rheumatology Erasmo Horn MD [address] [facility] [id number] (Wo rk) Scheduled Referrals Name Type Priority Associated Diagnoses Order S [facility] FAMILY MEDICINE CONSULT Referral Routine Chest discomfort Ordered: 11/05/2015, ADULT/PEDS (AMB) Expires: documented as of this encounter Visit Diagnoses Diagnosis Palpitation - Primary Palpitations Chest discomfort Other chest pain documented in this encounter Care Teams Materials Handling Coordinator Relationship Specialty Start Date End Date Liana Tovar MD PCP - General 03/08/[address] [place] [address] [place] [address] documented as of this encounter
--- OUTSIDE RECORDS SUMMARY | 2022-05-17 08:30 | XMS_ITS | Encounter Summary ---
:1985 Author Organization [employer] Address [address] [place] [address] Care Team Providers Name Role Phone Liana Tovar MD Primary Care Provider Reason for Visit Reason Comments Appt. Work In Request Encounter Details Date Type Department Care Team Description 11/04/2015 Telephone [facility] Liana Tovar, Appt. Work In Request Medicine [address] [place] [address] [facility], [facility] [phone] Social History Tobacco Use Types Packs/Day Years Used Date Smoking Tobacco: Never Assessed Sex Assigned at Date Recorded Not on file documented as of this encounter Nursing Notes Dary Limon LPN - 11/04/2015 1:06 PM CST Notified pt per Dr. Tovar's note. Pt states understanding, and is agreeable. Pt also scheduled to see Dr. Tovar on 11-05-15. Liana Allen MD - 11/04/2015 12:30 PM CST ok for sameday tomorrow. Reveiwed OB note, sounds OK to wait until then. If chest pain/SOB need to go to ER. Please have her stop for EKG prior to appt with me. AL CLERK Cynthia Condon RN - 11/04/2015 12:04 PM CST Reason for Call: Appointment Work In requested. Next Steps: Document further recommendations and route to appropriate person or pool. Caller IS expecting a call back from Care Team. Route to High Rigger (DA) pool. Additional Information: Pt seen by obgyn today and recommended evaluation by pcp. AL CLERK Jazzy Sharma - 11/04/2015 11:57 AM CST Patient requesting work in 11/04/15 or 11/05/15 for heart beat change and chest discomfort, see orders. Please advise. AL CLERK documented in this encounter Plan of Treatment Upcoming Encounters Date Type Specialty Care Team Description 05/18/2022 Appointment Rheumatology Erasmo Horn MD [address] [facility] [place] [address] (Wo rk) documented as of this encounter Procedures Procedure Name Priority Date/Time Associated Diagnosis Comme nts ECG 12 LEAD Routine 11/05/2015 1:53 PM Palpitations Results f or this OUTPATIENT RENTAL CLERK procedure are i n the results section. documented in this encounter Results ECG 12 Lead Outpatient (11/05/2015 1:53 PM RENTAL CLERK) P athologist Signature Ventricular Rate 87 BPM [facility] Atrial Rate 87 BPM [facility] P-R Interval 150 ms MUSE [facility] QRS Duration 88 ms MUSE [facility] QT 374 ms MUSE [facility] QTc 450 ms MUSE [facility] P Paxton 48 degrees MUSE GHP R Paxton 29 degrees MUSE GHP T Paxton 41 degrees MUSE [facility] Specimen (Source) Anatomical Collection Method Collection Time Re ceived Time Location / / Volume Laterality 11/05/2015 1:53 PM RENTAL CLERK Narrative MUSE [facility] - 11/27/2019 3:47 PM CDT Sinus rhythm Normal ECG When compared with ECG of 25-JUN-2008 00 :32, No significant change was found Confirmed by SUDHEER LANDAVERDE ([id number]), hosea or ANNIE DELACRUZ () on 11/05/2015 4:22:53 PM Procedure Note Epic, Internal Processing - 11/28/2019Fo rmatting of this note might be different from the original. Sinus rhythm Normal ECG When compared with ECG of 25-JUN-2008 00 :32, No significant change was found Confirmed by SUDHEER LANDAVERDE ([id number]), hosea or ANNIE DELACRUZ () on 11/05/2015 4:22:53 PM Liana Tovar MD PN ECG ORDERABLES Performing Organization Address City/State/ZIP Code Phon e Number [facility] [address] [place] [address] documented in this encounter Visit Diagnoses Diagnosis Palpitations - Primary documented in this encounter Care Teams Real Estate Management Specialist Relationship Specialty Start Date End Date Liana Tovar MD PCP - General 03/08/[address] [place] [id number] documented as of this encounter
--- OUTSIDE RECORDS SUMMARY | 2022-05-17 08:30 | XMS_ITS | Encounter Summary ---
:1985 Author Organization [employer] Address [address] [place] [address] Care Team Providers Name Role Phone Liana Tovar MD Primary Care Provider Encounter Details Date Type Department Care Team Description 11/08/2015 Hospital Encounter [facility] Electrocardiogram, Holter, Event Recorder [address] [place] [address] Social History Tobacco Use Types [...] (AKA Take 1 tablet by 90 tablet 3 02/2511/25/2015 TOPROL XL) 50 MG 24 hour [...] Description 05/18/2022 Appointment Rheumatology Erasmo Horn MD [address] [facility] [place] [id number] (Wo rk) documented as of this encounter Visit Diagnoses Not on filedocumented in this encounter Care Teams Rn Document Improvement Relationship Specialty Start Date End Date Liana Tovar MD PCP - General 03/08/15 [address] [place] [id number] documented as of this encounter
--- OUTSIDE RECORDS SUMMARY | 2022-05-17 08:30 | XMS_ITS | Encounter Summary ---
:1985 Author Organization [employer] Address [address] [place] [address] Care Team Providers Name Role Phone Liana Tovar MD Primary Care Provider Reason for Visit Reason Comments Shoulder Problem Encounter Details Date Type Department Care Team Description 09/24/2015 Office Visit [facility] Herson Limon, Bi ceps tendinitis, left (Primary Dx); Therapy PT Left shoulder pain [address] [place] [address] [place], [place] [phone] (Wo rk) Social History Tobacco Use Types Packs/Day Years Used Date Smoking Tobacco: Never Assessed Sex Assigned at Date Recorded Not on file documented as of this encounter Progress Notes Herson iLmon, PT - 09/24/2015 10:05 AM CST Encounter date: 09/24/2015 Pt : 1985 [facility] Physical Therapy Progress Note Visit Number: 2 Initial Certification Period: 09/22/2015 to 11/22/15 Referring Provider: Liana Tovar Visit Diagnosis: Diagnosis ICD-10-CM ICD-9-CM 1. Biceps tendinitis, left M75.22 726.12 2. Left shoulder pain M25.512 719.41 Precautions: none SUBJECTIVE: Patient returns for her follow up visit. States that she is still symptomatic, but reports some improvement. OBJECTIVE Current Objective Findings: Quick Dash score: 25 (initial 34.1) Treatment/Education Today: 1. Ultrasound: 1.6 [...] to the affected area. ASSESSMENT/PROGRESS TOWARD GOALS: Some subjective improvement in symptoms since the initial visit. Functional Goals/Outcomes: 1. Patient will regain pain free AROM of the shoulder 2. She will be able to sleep on the left side without pain 3. Patient will be able to do all ADL including reaching behind and across her body without pain Goals to be achieved within 4-6 week time frame. Plan: Con't as above. 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
--- OUTSIDE RECORDS SUMMARY | 2022-05-17 08:30 | XMS_ITS | Encounter Summary ---
:1985 Author Organization [employer] Address [address] [place] [address] Care Team Providers Name Role Phone Manjit Tovar MD Primary Care Provider Reason for Visit Reason Comments Skin Check Encounter Details Date Type Department Care Team Description 02/10/2016 Office Visit Delfina Orta Sun-dama ged skin (Primary Dx); Dermatology Seborrheic keratosis; [address] [address] [address] Dysplastic nevi; [place] [address] [place], [place] Dermatofibroma; [phone] Skin exam for malignant neoplasm; [phone] (Wo rk) Personal history of malignant melanoma o f skin Social History Tobacco Use Types Packs/Day Years Used Date Smoking Tobacco: Never Assessed Sex Assigned at Date Recorded Not on file documented as of this encounter Patient Instructions Patient InstructionsIwona Suarez RN - 02/10/2016 10:12 AM CDT 1. Clothing and shade are the best for sun protection. 2. Use sunscreen with zinc in it. See below for Dr. Mccray's sunscreen recommendations. 3. Take 2000 to 3000 IU of Vitamin D a day. 4. Try to give up wheat for a month. 5. You can get a natural product deodorants at [employer] 6. You can look at the ingredients on deodorant that you have used in the past and see if you can determine what ingredient may be the cause of irritation. 7. Use clindamycin lotion under your arms once a day. Apply small amount daily. [facility]. DIRECT PHONE NUMBER: MADDY GRAY [phone]. FEEL FREE TO CALL WITH ANY QUESTIONS OR CONCERNS YOU MAY HAVE. MOLES TO HAVE CHECKED IN CLINIC: BLACK, BISHOP OR BROWN IN THE CENTER WITH A RED OR COPPER TONE COLORING AROUND IT. ANY MOLES THAT CHANGE OR DOUBLE IN SIZE. SUNSCREEN: PREFER CLOTHING OVER SUNSCREEN. WHEN USING SUNSCREEN, PREFER SUNSCREEN WITH AT LEAST 5% ZINC BASE. * FOR EXAMPLE: VANICREAM SPF 30 OR 50, NEUTROGENA SENSITIVE SKIN, CITY BLOCK BY CLINIQUE, BLUE LIZARD FOR SENSITIVE SKIN, AND TERRASPORT OR AQUASPORT WHICH ARE AVAILABLE AT [employer]. VITAMIN D-3 RECOMMENDATIONS: - TAKE VITAMIN D [...] Thank you for choosing Dermatology at [facility]! We welcome your feedback. Comment cards are located in our lobby. For questions, please call and choose one of the following options: - for appointments and scheduling, press 1 - to speak with a nurse about a medical question from 7:30 am to 5 pm, press 2 - after hours emergencies, follow the instructions to be transferred to the watermelon inspector provider For medication refills, please contact your pharmacy. For questions regarding billing, please contact [employer] at . Please consider enrolling in [employer]. Please follow the instructions below to securely access your online medical record. [employer] allows you to send messages to your doctor, view your test results, renew your prescriptions, schedule appointments, and more. How Do I Sign Up? 1. In your Internet browser, go to: [email or web address] 2. Click on the Enter Activation Code link under the New User? section. You will see the New Member Sign Up page. 3. Enter your [employer] Activation Code exactly as it appears below. You will not need to use this code after you???ve completed the sign-up process. If you do not sign up before the expiration date, youmust request a new code. [employer] Activation Code: Activation code not generated Current [employer] Status: Active 4. Enter the last four digits of your Social Security Number ([id number]) and Date of (mm/dd/yyyy) as indicated and click Next. You will be taken to the next sign-up page. 5. Create a [employer] ID. This will be your [employer] login ID and cannot be changed, so think of one that is secure and easy to remember. 6. Create a [employer] password. You can change your password at any time. 7. Enter your Security Question and Answer. This can be used at a later time if you forget your password. Click Next. 8. Enter your e-mail address. You will receive e-mail notification when new information is availablein [employer]. 9. Click Sign In. You can now view your medical record. Additional Information If you have questions, you can call [phone] to talk to our [employer] staff. Remember, [employer] is NOT to be used for urgent needs. For medical emergencies, dial 911. documented in this encounter Progress Notes Iwona Suarez RN - 02/10/2016 12:24 PM CDT Images from the original note were not included. 1. Right latter-day Follow 2. Left cheek Mole Follow Delfina Knox MD - 02/10/2016 10:27 AM CDT Progress Notes signed by Delfina Mccray MD at 02/10/16 1224 Author: Delfina Mccray MD Service: (none) Author Type: Physician Filed: 02/10/16 1224 Note Time: 02/10/16 1154 Status: Signed Dialysis Patient Care Technician: Delfina Mccray MD (Physician) NAME: MANJIT JUAREZ MR#: [id number] CSN: [id number] AUTHENTICATING CLINICIAN: Delfina Knox MD CONFIRM #: [id number] LOC: 527 CLINIC PROGRESS NOTE DATE OF VISIT: 02/10/2016 : 1985 Manjit is a 30-year-old here for a full-body exam. She had a melanoma, left breast, 0.39 mm in depth in 2008, and a thin probable melanoma on the left anterior lower leg in 2000 of 0.19 mm in depth. 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 We have a photograph of a chocolate-brown mole on the 2nd toe, right foot, that has not changed in comparison when I looked at both the mole and the photograph today she has had a lot of problems with allergies lately. Tree nut, she cannot take any, and milk, she cannot take any. If she gets any in, she feels very, very sick. She also has an allergyto nickel and now she is having problems with deodorants. Tried a man's deodorant and it worked a little better, less itching, but still very itchy; wondering what she should do. OBJECTIVE: Full-body exam today including scalp, face, neck, chest, back, abdomen, buttocks, groin, arms, legs,hands, feet, nails, perirectal, and pubic area. Fair skin, blonde haired, green eyed, no antonio. Very few nevi remaining. Back looks perfect. She has a fibrotic little compound nevus right upper arm. She has a mole on the 2nd toe, right foot, that is unchanged. She has a little more freckling on the face, a little orangey-brown freckling that is light on the right latter-day, and then a couple spots that are telangiectatic that might be early nevi on the left cheek. A lot of telangiectasias on the face. I photographed the left and the right. She has no rash in the axillae, and her scars are well-healed with no sign of recurrence, and she has no atypical nevi, no lymphadenopathy in the neck, supraclavicular, infraclavicular, axillary, or groin. ASSESSMENT: Freckly moles on the face. PLAN: Follow the freckly moles on the face. We talked about sometimes people get allergic to many things when they are actually allergic to wheat, and it causes some problems with leaky gut. It is not Western medicine belief philosophy, it is a possibility, but it is a safe thing to try to go wheat-free fora month and see if she has less problems with irritable bowel, fatigue, hair loss, etc. Aluminum is in every antiperspirant. Deodorants can be used without aluminum, and I also could just give her Cleocin lotion to keep the bacteria count down in the axillae, and see if that alone, without an antiperspirant, is possible. Also could go to the store, read all the ingredients of the products she has already tried that she reacted to, and see if there is a common denominator. Went over what to be watching for with her nevi and I spent 25 minutes in conversation and 5 in exam with her today. I will see her back every 6 months for some time. VLV:MEDQ C: CONFIRM #: [id number] documented in this encounter Plan of Treatment Upcoming Encounters Date Type Specialty Care Team Description 05/18/2022 Appointment Rheumatology Erasmo Horn MD [address] [place] [address] (Wo rk) documented as of this encounter Visit Diagnoses Diagnosis Sun-damaged skin - Primary Other chronic dermatitis due to solar ra diation Seborrheic keratosis Other seborrheic keratosis Dysplastic nevi Benign neoplasm of skin, site unspecifie d Dermatofibroma Benign neoplasm of skin, site unspecifie d Skin exam for malignant neoplasm Screening for malignant neoplasm of the skin Personal history of malignant melanoma o f skin documented in this encounter Care Teams Attic Blower Relationship Specialty Start Date End Date Manjit Tovar MD PCP - General 03/08/[address] [place] [address] documented as of this encounter
--- OUTSIDE RECORDS SUMMARY | 2022-05-17 08:30 | XMS_ITS | Encounter Summary ---
:1985 Author Organization [employer] Address [address] [place] [address] Care Team Providers Name Role Phone Manjit Tovar MD Primary Care Provider Reason for Referral Specialty Diagnoses / Procedures Referred By Contact Refer red To Contact Manjit Tovar MD [address] [place] [address] [place] [address] Referral ID Status Reason Start Date Expiration Date Visits Requ ested Visits Authorized Reason for Visit Reason Comments Palpitations Encounter Details Date Type Department Care Team Description 11/08/2015 Initial Consult Heart & Vascular Shannan Rosado Pa lpitations (Primary Dx); Center Cardiology MD Trice Chest discomfort [address] [facility] [id number] Social History Tobacco Use Types Packs/Day Years Used Date Smoking Tobacco: Never Assessed Sex Assigned at Date Recorded Not on file documented as of this encounter Last Filed Vital Signs Vital Sign Reading Time Taken Comments Blood Pressure 115/84 11/08/2015 1:00 PM CDT Pulse 88 11/08/2015 1:00 PM CDT Temperature - - Respiratory Rate - - Oxygen Saturation - - Inhaled Oxygen Concentration - - Weight 88.9 kg (196 lb) 11/08/2015 12:50 PM CDT Height 157.5 cm (5' 2) 11/08/2015 12:50 PM CDT Body Mass Index 35.85 11/08/2015 12:50 PM CDT documented in this encounter Patient Instructions Patient InstructionsShannan Rosado MD - 11/08/2015 1:26 PM CDT Dear Ms Manjit Juarez We discussed today that you have racing heart beat. It is probably related to skipped beats/premature beats. These are benign, cut down on coffee/soda. We should do 1- Medications: no changes but we could go up on the metoprolol if needed 2- Laboratory: none 3- Testing: holter It was a pleasure to see you today Contact me with questions, Shannan Rosado MD (Betza[place], RN [phone]) documented in this encounter Progress Notes Shannan Rosado MD - 11/08/2015 1:33 PM CDT Progress Notes signed by Shannan Rosado MD at 11/08/158 Author: Shannan Rosado MD Service: (none) Author Type: Physician Filed: 11/08/15 1628 Note Time: 11/08/151416 Status: Signed Jet Dyeing Machine Tender: Shannan Rosado MD (Physician) NAME: MANJIT JUAREZ MR#: [id number] CSN: [id number] AUTHENTICATING CLINICIAN: Shannan Rosado MD CONFIRM #: [id number] LOC: 3505 CLINIC CONSULTATION DATE OF CONSULTATION: 11/08/2015 : 1985 REQUESTING PHYSICIAN: Manjit Tovar MD CHIEF COMPLAINT: Palpitations. HISTORY OF PRESENT ILLNESS: Manjit is a 29-year-old female with history of migraines on chronic metoprolol, who comes in here todiscuss episodes of palpitations. She was seen by her primary care physician last week with a 2-week history of palpitations. She reports episodes of rapid heartbeat/constant racing for minutes, more often in the evening/around bedtime. Episodes are not associated with chest discomfort or shortness of breath, lightheadedness or dizziness. She has a routine of exercise that includes walking and elliptical 30 minutes 3 times a week with nosymptoms whatsoever. She enjoys 2 cans of Diet Mountain Dew, 1 with lunch and 1 with dinner. PAST MEDICAL HISTORY: History of migraines. Arthritis, juvenile, chronic. Elevated blood pressure readings. MEDICATIONS: She takes metoprolol XL daily and Imitrex as needed. SOCIAL HISTORY: She is . Has no children. 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 She quit smoking in 2012. Barely drinks alcohol. FAMILY HISTORY: Mother with hypertension. Father with diabetes and hypertension. REVIEW OF SYSTEMS: A 10-point review of systems performed and is negative except as noted in the HPI. Physical exam General: AAOx3, in NAD BP 115/84 mmHg Pulse 88 Ht 5' 2 (157.5 cm) Wt 196 lb (26994 g) BMI 35.84 kg/m2 LMP 09/20/2015 neck: no JVD, no bruits respiratory: CTA B. No crackles cardiovascular/extremities: RRR no g/m/r gastrointestinal: soft, NT/ND BS+ skin: warm, no rash neurologic: no major neuro deficits psychiatric: mood appears appropriate, awake, alert EKG reveals sinus rhythm. ASSESSMENT/PLAN: Manjit Juarez is a 29-year-old female with history of migraines on chronic beta-blockers, who comes in here to discuss palpitations. She is currently symptom free. We discussed that the most likely reason for her palpitations is benign ectopy. She has already a Holter scheduled. I will wait for results. Caffeine is likely playing a role in her symptoms. She was advised to cut down at least on soda status related to that she drinks in the evening. If continues to have symptoms after caffeine diet-free, we could up-titrate beta-blockers if needed. Will contact her with the Holter results. Thanks for allowing me to see your patient, Manjit Juarez, in cardiology consultation. I spent a total 60 minutes with the patient, 40 minutes going over plan outlined above. Contact me with questions. MD Byron Fontaine Staff Condominium Property Manager CC: [place] [address] [place] [address] MJC:[id number] C: CONFIRM #: [id number] documented in this encounter Plan of Treatment Upcoming Encounters Date Type Specialty Care Team Description 05/18/2022 Appointment Rheumatology Erasmo Horn MD [address] [facility] [place] [address] [id number] (Wo rk) Scheduled Referrals Name Type Priority Associated Diagnoses Order S chedule Cardiology Referral Routine Chest discomfort Ordered: , Consult-Adults Expires: 10/25 documented as of this encounter Visit Diagnoses Diagnosis Palpitations - Primary Chest discomfort Other chest pain documented in this encounter Care Teams Package Dye Stand Loader Relationship Specialty Start Date End Date Manjit Tovar MD PCP - General 03/08/[address] [place] [id number] documented as of this encounter
--- OUTSIDE RECORDS SUMMARY | 2022-05-17 08:30 | XMS_ITS | Encounter Summary ---
:1985 Author Organization [employer] Address [address] [place] [address] Care Team Providers Name Role Phone Liana Tovar MD Primary Care Provider Reason for Referral Specialty Diagnoses / Procedures Referred By Contact Refer red To Contact Liana Tovar MD [address] [place] [address] [place] [address] Referral ID Status Reason Start Date Expiration Date Visits Requ ested Visits Authorized IC DESIGNER Reason for Visit Reason Comments Shoulder Problem Encounter Details Date Type Department Care Team Description 09/22/2015 Initial Consult [facility] Herson Limon, Left shoulder pain (Primary Dx); Therapy PT Biceps tendinitis, left [address] [place] [address] [place], [place] [phone] [address] Social History Tobacco Use Types Packs/Day Years Used Date Smoking Tobacco: Never Assessed Sex Assigned at Date Recorded Not on file documented as of this encounter Progress Notes Herson Limon, PT - 09/23/2015 9:27 AM CST Date of Service: 09/22/2015 Pt : 1985 [facility]er Evaluation/Plan of Care Initial Certification Period: 09/22/2015 to 11/22/15 Referring Provider: Liana Tovar Visit Diagnosis: Diagnosis ICD-10-CM ICD-9-CM 1. Left shoulder pain M25.512 719.41 2. Biceps tendinitis, left M75.22 726.12 Precautions: None Orders: Evaluate & treat Onset/Referral Date: 09/17/15 SUBJECTIVE Reason for Visit: Patient is a 29 year old female presenting with c/o left shoulder pain since last Sunday after she reached back to get up from a couch. Since then, has had pain with reaching behind and laying on the left side, but especially reaching across her body. Patient denies any problems prior to this incident. Her symptoms are localized to the anterior, posterior and lateral aspect of the shoulder. Feels that the pain is deep in the shoulder. Reports minimal pain with OH activities. Patient Therapy Goals: Resume previous level of activity symptom free. Past Medical History: Patient has a past medical history of Arthritis; Cancer ([facility]); and Rheumatoid arthritis(714.0) ([facility]). 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 Neurological: Myotomes: all myotomes were normal, but patient had reproduction of her symptoms on resisted abduction and ER testing. She did not have any pain on resisted biceps testing in both supination and neutral. Joint mobility: GH: overall good mobility of the shoulder Palpation: significant tenderness along the anterio-lateral aspect of the shoulder Special Tests: (Weller: (-) = no reproduction of symptoms; (+) = reproduction of symptoms) Man test for impingement: (++) Empty can: (+) PT Outcomes: PT Program: Musculoskeletal - Shoulder QuickDASH (0-100, 0 being best): 34.1 Today's Intervention: Physical Therapy Evaluation was completed and the patient was educated on the condition, planned therapy intervention and expectations from treatment. Therapeutic exercise x 7 minutes: patient was instructed in possible etiology of her symptoms, shoulder anatomy and the following HEP: shoulder retraction and behind the back. I also recommended that she avoids any activity that causes pain and applies ice to the affected area. Manual therapy x 10 minutes: GH joint mobs: inferio-posterior glides, gr. III, III+ oscillated in flexion and abduction 75-120 degrees to decrease inflammation/pain and improve joint mobility Ultrasound: 1.6 w/cm2,1 MHz, 100% for 8 minutes for 8 minutes to the insertion of the supraspinatus tendon for the total of 9 minutes with prep time. Rx was tolerated well. Timed Code Treatment Minutes: 26 Total Treatment Minutes: 37 ASSESSMENT Therapist Impression/Summary: Left shoulder pain - possible RC tendonitis/anterior impingement syndrome Recommendations/Equipment: No additional recommendations at this time Significant Impairments: Pain Functional Limitations: difficulty sleeping, difficulty dressing, difficulty with household tasks, difficulty meeting work demands, difficulty with sports/leisure activities and difficulty with driving Goals/Functional Outcomes: 1. Patient will regain pain free AROM of the shoulder 2. She will be able to sleep on the left side without pain 3. Patient will be able to do all ADL including reaching behind and across her body without pain Goals to be achieved within 4-6 week time frame. Barriers to Goal Achievement or Learning: none Prognosis: good PLAN Planned Intervention/Education: Education, Manual Therapy, Therapeutic Exercise, Ultrasound Frequency: 2 x week Duration: 45 days Discharge Plan: Patient will be discharge from therapy when goals are achieved or patient plateaus in progress. Informed Consent: Patient and/or family in agreement with the care plan. Plan for Next Treatment: con't as above. The top polisher is completed by the therapist and the referring clinician's electronic signature certifies medical necessity for the plan above. IC DESIGNER documented in this encounter Plan of Treatment Upcoming Encounters Date Type Specialty Care Team Description 05/18/2022 Appointment Rheumatology Erasmo Horn MD [address] [facility] [address] [id number] (Wo rk) Scheduled Referrals Name Type Priority Associated Diagnoses Order S chedule Physical Therapy Referral Routine Biceps tendinitis, left Ordered: 09/22/2015, Expires: 2015 documented as of this encounter Visit Diagnoses Diagnosis Left shoulder pain - Primary Pain in joint, shoulder region Biceps tendinitis, left documented in this encounter Care Teams Express Manager Relationship Specialty Start Date End Date Liana Tovar MD PCP - General 03/08/[address] [place] [address] documented as of this encounter
--- OUTSIDE RECORDS SUMMARY | 2022-05-17 08:30 | XMS_ITS | Encounter Summary ---
:1985 Author Organization [employer] Address [address] [place] [address] Care Team Providers Name Role Phone Liana Tovar MD Primary Care Provider Reason for Visit Reason Onset Date Comments Refill 05/16/2016 Encounter Details Date Type Department Care Team Description 05/16/2016 Refill Heart & Vascular Center Shannan Burns MD Refill Cardiology [address] [place] [address] [place], [place] [address] [phone] Social History Tobacco Use Types Packs/Day Years [...] documented as of this encounter Nursing Notes Betzaida Rogel RN - 05/17/2016 9:50 AM CDT From: Liana Juarez To: Shannan Rosado MD Sent: 05/16/2016 8:01 PM CDT Subject: Medication Renewal Request Original authorizing provider: MD Liana Ray would like a refill of the following medications: metoPROLOL succinate (AKA TOPROL XL) 50 MG 24 hour release tablet [Shannan Rosado MD] [facility] [address] [address] [address] Comment: documented in this encounter Plan of Treatment Upcoming Encounters Date Type Specialty Care Team Description 05/18/2022 Appointment Rheumatology Erasmo Horn MD [address] [facility] [address] [id number] (Wo rk) documented as of this encounter Visit Diagnoses Not on filedocumented in this encounter Care Teams Floodplain Manager Relationship Specialty Start Date End Date Liana Tovar MD PCP - General 03/08/15 [address] [place] [address] documented as of this encounter
--- OUTSIDE RECORDS SUMMARY | 2022-05-17 08:31 | XMS_ITS | Encounter Summary ---
:1985 Author Organization [employer] Address [address] [place] [address] Care Team Providers Name Role Phone Md YOBANI Valentin Primary Care Provider Reason for Visit Reason Comments CONSULT Encounter Details Date Type Department Care Team Description 07/17/2014 Initial Consult [facility] [address] Mauricio Piedra MD Urticaria, chronic Allergy [address] (Primary Dx) [address] [place] [place] [address] [phone] Social History Tobacco Use Types Packs/Day Years Used Date Smoking Tobacco: Never Assessed Sex Assigned at Date Recorded Not on file documented as of this encounter Last Filed Vital Signs Vital Sign Reading Time Taken Comments Blood Pressure 110/80 07/17/2014 10:02 AM SKETCH MAKER Pulse - - Temperature - - Respiratory Rate - - Oxygen Saturation - - Inhaled Oxygen Concentration - - Weight 72.6 kg (160 lb) 07/17/2014 10:02 AM SKETCH MAKER Height 157.5 cm (5' 2) 07/17/2014 10:02 AM SKETCH MAKER Body Mass Index 29.26 07/17/2014 10:02 AM SKETCH MAKER documented in this encounter Progress Notes Mauricio Piedra MD - 07/20/2014 11:43 AM CST d CH MAKER Mauricio Piedra MD - 07/19/2014 6:33 PM CST Progress Notes signed by Mauricio Piedra MD at 07/20/141727 Author: Mauricio Piedra MD Service: (none) Author Type: Physician Filed: 07/20/141727 Note Time: 07/19/141930 Status: Signed Brand Activation Manager: Mauricio Piedra MD (Physician) NAME: MANJIT WASHINGTON MR#: [id number] CSN: [id number] AUTHENTICATING CLINICIAN: Mauricio Piedra MD CONFIRM #: [id number] LOC: 414 CLINIC PROGRESS NOTE DATE OF VISIT: 07/17/2014 : 1985 Ms. 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 She has hives for 2 months. She was first seen by Dr. Clark in Dermatology on 06/09/2014, with a rash over most of her body for several weeks that came and went. It started on her back and then spread to her arms and legs. She tried Zyrtec for a week, but did not feel it improved much. She has been given a 5-day course of prednisone and did not really feel that that had made a big difference. On exam, there was dermographism on the back. There were some light brown macules and papules on the trunkand extremities with even color and pigmentation. 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 She has been a patient of Dr. Delaney in the past because of melanoma. She was then seen on 06/29/2014, by Dr. Delaney. By that time, the rash was more typical urticarial. A biopsy was done and did not show urticarial vasculitis at that time. She returned on 07/14/2014, to Dr. Delaney. She had been put on prednisone on 06/29/2014, when she was going on vacation and her urticaria have been flaring. She had been on sulfasalazine and meloxicam for 6 months and a new control pill. The control pill was switched back to the one she was on in the past and she went off meloxicam for a week, but did not see any change with that. She also went off sulfasalazine on July 01 and did not seean improvement with that. She comes in today wondering whether she might be milk sensitivity. She thinks mild caused her lips to swell, but yesterday she had tomato soup with milk in it and had increase in hives. She has not had any foreign travel. She does have rheumatoid arthritis for which she takes sulfasalazine. She had been off it for 3 weeks when I saw her on 07/17/2014. She said every day she gets hives. She is taking Claritin daily without any improvement. Has not felt otherwise ill. No weight loss. No change in where she lives or where she works. No other known changes. ALLERGIES: No drug allergy. ENVIRONMENT: Two cats and a dog. No smokers. She has lived for 2 to 3 years in [place], hot water heat, window air conditioner, memory foam pillow. PAST MEDICAL HISTORY: No hospitalizations or operations. She takes control pills. FAMILY HISTORY: Negative for allergies. EXAM: VITAL SIGNS: Blood pressure 110/80, height 62 inches, weight 160 pounds. GENERAL: Well developed, well nourished. HEENT: No sinus tenderness. Conjunctivae and eyelids normal. Nose is slightly congested. Teeth and gums in good repair. Pharynx benign. Normal respiratory effort. CHEST: Clear. HEART: Regular in rate and rhythm. SKIN: Shows generalized urticaria. Allergy skin testing was done. The histamine showed a good control of 15/50 in wheal/flare in mm. She had negative tests to a battery of common food antigens, including milk by the derm prick method. Positive histamine, negative saline controls. She called back later that day to say that the milk test and the almond test had flared up a little bit after she had left. IMPRESSION: Chronic urticaria of unknown etiology. A biopsy did not show evidence of vasculitis. She has had a normal CBC with differential. Her sedimentation rate was only 8 when it was previously done. She has anormal ALT, normal creatinine, normal TSH, although the TPO antibodies are somewhat elevated at 62 and 0.4. LISA was negative. RECOMMENDATIONS: Zyrtec 10 mg t.i.d. If that is not adequate, may try adding in an H2 antagonist such as ranitidine 150 mg b.i.d. and montelukast 10 mg once a day, although the addition of these medications may not make a significant difference. May be a candidate for Xolair. Total visit time: 45 minutes. Counseling time: 25 minutes, reviewing possible causes of urticaria, none of which have been identified in her situation and information regarding the fact that this is the most common situation, which we do not know the cause of urticaria, although there are a few possibilities in her case such as control pills, NSAID and sulfasalazine, various treatments that canbe used. The difficulty in knowing how long the hives will last, etc. CC: [place] [address] [address] DFG:MEDQ C: CONFIRM #: [id number] CH MAKER documented in this encounter Plan of Treatment Upcoming Encounters Date Type Specialty Care Team Description 05/18/2022 Appointment Rheumatology Erasmo Horn MD [address] [facility] [address] [id number] (Wo rk) documented as of this encounter Visit Diagnoses Diagnosis Urticaria, chronic - Primary Other specified urticaria documented in this encounter Care Teams Manager Foreign Relationship Specialty Start Date End Date Md Valentin MD PCP - General 11/28/10 03/07/15 [place] [address] documented as of this encounter
--- OUTSIDE RECORDS SUMMARY | 2022-05-17 08:31 | XMS_ITS | Encounter Summary ---
:1985 Author Organization [employer] Address [address] [place] [address] Care Team Providers Name Role Phone Md YOBANI Valentin Primary Care Provider Reason for Visit Reason Comments Follow-up Encounter Details Date Type Department Care Team Description 07/14/2014 Office Visit Delfina Orta, Allergic urticaria Dermatology MD (Primary Dx) [address] [place] [address] [place], [place] [phone] (Wo rk) Social History Tobacco Use Types Packs/Day Years Used Date Smoking Tobacco: Never Assessed Sex Assigned at Date Recorded Not on file documented as of this encounter Patient Instructions Patient InstructionsMaddy Chapman MA - 07/14/2014 9:50 AM CST DIRECT PHONE NUMBER: MADDY [phone]. FEEL FREE TO CALL WITH ANY QUESTIONS OR CONCERNS YOU MAY HAVE. TREATMENT PLAN: *CLOBETASOL CREAM: - APPLY TO YOUR HANDS AND FEET UP TO TWICE DAILY FOR 1 - 2 WEEKS. THEN STOP. - PRESCRIBED AND FAXED TO YOUR PHARMACY. *FOOD JOURNAL - SEE IF YOU CAN CORRELATE FLARES WITH FOODS THAT YOU EAT. *DISCONTINUE TAKING SULFASALAZINE, MELOXICAM, AND YOUR CONTROL. * COMPLETE LABS TODAY - WE WILL MAIL YOU THE RESULTS * FOLLOW UP SCHEDULED WITH ALLERGY ER TIP CATCHER documented in this encounter Progress Notes Delfina Knox MD - 07/14/2014 10:31 AM CST Progress Notes signed by Delfina Mccray MD at 07/15/14714 Author: Delfina Mccray MD Service: (none) Author Type: Physician Filed: 07/15/14 0715 Note Time: 07/14/14 1342 Status: Signed It Communications Manager: Delfina Mccray MD (Physician) NAME: MANJIT DOHERTY MR#: [id number] CSN: [id number] AUTHENTICATING CLINICIAN: Delfina Knox MD CONFIRM #: [id number] LOC: 527 CLINIC PROGRESS NOTE DATE OF VISIT: 07/14/2014 : 1985 Manjit is a 28-year-old here for followup of urticaria. I just saw her on June 29. She was going on vacation, her urticaria was pretty flared. I was not sure if it was urticarial vasculitis or not. Abiopsy was done and did not show vasculitis. She had been on sulfasalazine and meloxicam for about 6months and a new control pill. The control pill was changed back to the one she was on in the past and she actually went off meloxicam for a week since I saw her. It did not help, so she went back on. She went off sulfasalazine on July 01 and she does not feel like she is any better at all. She has an appointment with Allergy on Sunday, so she is off all her Zyrtec and Claritin. She isallergic to bacitracin, metronidazole, and bandages. Biopsy site stitches were removed. On examination of the face, the thighs, and the legs she has diffuse urticaria throughout. Even the face is involved is a little bit. Her hands and feet she said are swollen. They definitely have urticaria on the palms and soles, but I do not see any caitie swelling. She is not scratching, but she does certainly look miserable. ASSESSMENT: Urticaria with history of rheumatoid arthritis. Now off sulfasalazine since July 01, so 13 days or almost 2 weeks. Still on meloxicam and the control pill. PLAN: She did have one day where she flared terribly, she said it was right after taking her evening dose of sulfasalazine, so that is when she decided to stop that. It is of the 3 medications probably the biggest culprit as far as a sulfa moiety to cause urticaria, but I do not think meloxicam is off the hook and may be a culprit, as well as the control pills. Prednisone did not touch her unless shewas on the 40 mg prednisone, she is off that now. I certainly cannot put her on anything before her allergy appointment. I did not run blood work prior to the biopsy and I guess I would like to make sure her review of systems for headaches, stomachaches, sore throat, urinary tract infections is all neg ative, but I will run some baseline labs and see if anything shows up. She will see Allergy and do not know if they will be able to test her. My recommendation would be to go off all unessential medication, hopefully that would include control, meloxicam and sulfasalazine, and see where we go. Iwill wait to see what Allergy says and what her blood work shows and I will get back in touch with her on Sunday to see how things are going. I did give her clobetasol cream to use on the palms and soles to try and help with some of the swelling. VLV:MEDQ C: CONFIRM #: [id number] ER TIP CATCHER documented in this encounter Plan of Treatment Upcoming Encounters Date Type Specialty Care Team Description 05/18/2022 Appointment [facility]asm[facility] [address] [facility] [place] [id number] (Wo rk) documented as of this encounter Visit Diagnoses Diagnosis Allergic urticaria - Primary documented in this encounter Care Teams Donkey Engine Firer/Fireman Relationship Specialty Start Date End Date Md Valentin MD PCP - General 11/28/10 03/07/15 [place] [address] documented as of this encounter
--- OUTSIDE RECORDS SUMMARY | 2022-05-17 08:31 | XMS_ITS | Encounter Summary ---
:1985 Author Organization [facility] Address [address] [place] [address] Care Team Providers Name Role Phone Md YOBANI Valentin Primary Care Provider Reason for Visit Reason Comments Rash Encounter Details Date Type Department Care Team Description 06/09/2014 Office Visit [facility] [address], Cont act dermatitis and other eczema, due to unspecified cause (Primary Dx); Dermatology MD Personal history of malignant melanoma o f skin; [address] Benign neoplasm of skin of trunk, [place] [address] [phone] Social History Tobacco Use Types Packs/Day Years Used Date Smoking Tobacco: Never Assessed Sex Assigned at Date Recorded Not on file documented as of this encounter Progress Notes Tarun Clark MD - 06/09/2014 11:38 AM CDT Progress Notes signed by Tarun Clark MD at 06/22/14818 Author: Tarun Clark MD Service: (none) Author Type: Physician Filed: 06/22/14818 Note Time: 06/09/141508 Status: Signed Sales And Service Specialist: Tarun Clark MD (Physician) NAME: MANJIT DOHERTY MR#: [id number] CSN: [id number] AUTHENTICATING CLINICIAN: Tarun Clark MD CONFIRM #: [id number] LOC: 427 CLINIC PROGRESS NOTE DATE OF VISIT: 06/09/2014 : 1985 HISTORY OF PRESENT ILLNESS: Patient is a 28-year-old who presents for evaluation. She has had a rash over most of her body for several weeks. She says it comes and goes. It started on the back and now has spread to the arms as well as on the legs. She is using uomw-oxa-slmilky cortisone. She was recommended Zyrtec, which she took for a week, and did not feel was helpful. She was given a 5-day prednisone taper and recently completed that. She does not feel it has helped. Of note, she also has a previous history of malignant melanoma from the left breast as well as an atypical lesion from the left lower leg. She regularly sees Dr. Knox. She has not used other topical therapy. No other skin lesions of concern. MEDICATIONS: Reviewed and updated in Epic. ALLERGIES: Reviewed and updated in Epic. PHYSICAL EXAM: Patient healthy-appearing and in no apparent distress. Exam is total-skin, excluding undergarment areas. The patient shows positive sign for dermatographism on the back. There are some light-brown macules and papules on the trunk and extremities. They showeven color and pigmentation. There is a well-healed scar on the left breast without pigmentation, induration or recurrence. There is a similar well-healed scar on the left lower leg. There is no cervical, supraclavicular, axillary, or inguinal lymphadenopathy. No other skin lesions of concern. DIAGNOSIS: 1. Eczematous dermatitis with component of dermatographism. 2. Melanocytic nevi, trunk and extremities. 3. History of malignant melanoma, left breast, Breslow's depth 0.39 mm from 2008. No recurrence. 4. History of atypical melanocytic lesion, probable melanoma 0.18 mm in depth from left anterior lower leg. No recurrence. TREATMENT: 1. Clinical findings were discussed. 2. Patient will change to Eucerin calming cream. 3. She will begin triamcinolone 0.1 ointment to the eczematous areas. Steroid side effects, including skin thinning were discussed. 4. She will resume Zyrtec 10 mg a day. 5. She will change to All Free and Clear, or other fragrance-free detergent. 6. She will let me know if not improving. 7. Otherwise, I have emphasized the importance of annual skin checks, given her history of melanoma.She is scheduled to follow up with Dr. Knox. DSE:MEDQ C: CONFIRM #: [id number] documented in this encounter Plan of Treatment Upcoming Encounters Date Type Specialty Care Team Description 05/18/2022 Appointment Rheumatology Erasmo Horn MD [address] [facility] [phone] (Wo rk) documented as of this encounter Visit Diagnoses Diagnosis Contact dermatitis and other eczema, due to unspecified cause - Primary Personal history of malignant melanoma o f skin Benign neoplasm of skin of trunk, except scrotum documented in this encounter Care Teams Outside Energy Sales Representatives Relationship Specialty Start Date End Date Md Homero, PCP - General 11/28/10 03/07/15 [place], [place] [id number] documented as of this encounter
--- OUTSIDE RECORDS SUMMARY | 2022-05-17 08:31 | XMS_ITS | Encounter Summary ---
:1985 Author Organization [employer] Address [address] [place] [address] Care Team Providers Name Role Phone Md YOBANI Valentin Primary Care Provider Reason for Visit Reason Comments Rash Encounter Details Date Type Department Care Team Description 06/29/2014 Office Visit Delfina Orta, Urticari a, unspecified (Primary Dx); Dermatology MD Other specified disease of sebaceous gla nds; [id number] [place] [address] Disturbance of skin sensation; [place] [address] [place], [place] Unspecified pruritic disorde r [phone] (Wo rk) Social History Tobacco Use Types Packs/Day Years Used Date Smoking Tobacco: Never Assessed Sex Assigned at Date Recorded Not on file documented as of this encounter Patient Instructions Patient InstructionsIwona Suarez RN - 06/29/2014 1:14 PM CST 1. Try to find out when you started the new control pill and when the hives started. Bring thename and dosage of control with you at next visit. 2. Prednisone prescription sent to your pharmacy. DIRECT PHONE NUMBER: MADDY DENNY ISAAC [phone]. FEEL FREE TO CALL WITH ANY QUESTIONS OR CONCERNSYOU MAY HAVE. MOLES TO HAVE CHECKED IN CLINIC: BLACK, BISHOP OR BROWN IN THE CENTER WITH A RED OR COPPER TONE COLORING AROUND IT. ANY MOLES THAT CHANGE OR DOUBLE IN SIZE. SUNSCREEN: PREFER CLOTHING OVER SUNSCREEN. WHEN USING SUNSCREEN, PREFER SUNSCREEN WITH ZINC BASE. * FOR EXAMPLE: VANICREAM SPF 30 OR 50, NEUTROGENA SENSITIVE SKIN, CITY BLOCK BY CLINIQUE OR AQUASPORT AVAILABLE AT [employer]. VITAMIN D-3 RECOMMENDATIONS: - TAKE VITAMIN D [...] A NATURAL MOOD BOOSTER, NATURAL IMMUNITY BOOSTER, AND GOOD FOR YOUR MUSCLES, BONES AND BRAIN HEALTH. Care Instructions after a Skin Biopsy/Surgery When do I start changing the bandage on my skin biopsy/surgery site? Leave the original bandage/dressing in place for 48 to 72 hours. If you develop bleeding from the [...] my skin biopsy/surgery site? After the initial 48 to 72 hours, clean the area every other day with soap and warm water. Can [...] the site. Please call the clinic at [phone] if you experience any of these symptoms. When should my sutures be removed? Please schedule your nurse appointment at the front desk monitor for the suture removal within 10-14 days. When will I receive my skin biopsy results? Your skin biopsy specimen will be sent to our laboratory for processing. It will then be interpretedby one of our four board-certified dermatopathologists, Dr. Tarun Clark, Dr. Nash Omalley, Dr. Ashleigh Machado, and Dr. Augustin Larios. The dermatopathologists will write their findings in [...] within 2 weeks, please call us at [phone]. Thank you for choosing Dermatology at [facility]! We welcome your feedback. Comment cards are located in our lobby. For questions, please call and choose one of the following options: - for appointments and scheduling, press 1 - to speak with a nurse about a medical question from 7:30 am to 5 pm, press 2 - after hours emergencies, follow the instructions to be transferred to the bilingual sales consultant provider For medication refills, please contact your pharmacy. For questions regarding billing, please contact [employer] at . Please consider enrolling in [employer]. Please follow the instructions below to securely access your online medical record. [employer] allows you to send messages to your doctor, view your test results, renew your prescriptions, schedule appointments, and more. How Do I Sign Up? 1. In your Internet browser, go to: [email or web address] 2. Click on the Enter Activation Code link under the New User? section. You will see the New Member Sign Up page. 3. Enter your [employer] Activation Code exactly as it appears below. You will not need to use this code after you???ve completed the sign-up process. If you do not sign up before the expiration date, youmust request a new code. [employer] Activation Code: [email or web address] Expires: 07/29/2014 12:59 PM 4. Enter the last four digits of your Social Security Number ([id number]) and Date of (mm/dd/yyyy) as indicated and click Next. You will be taken to the next sign-up page. 5. Create a [employer]gence ID. This will be your [employer] login ID and cannot be changed, so think of one that is secure and easy to remember. 6. Create a [employer] password. You can change your password at any time. 7. Enter your Security Question and Answer. This can be used at a later time if you forget your password. Click Next. 8. Enter your e-mail address. You will receive e-mail notification when new information is availablein [employer]. 9. Click Sign In. You can now view your medical record. Additional Information If you have questions, you can call [phone] to talk to our [employer] staff. Remember, MyChart is NOT to be used for urgent needs. For medical emergencies, dial 911. Please send a [employer]gence evChaseFutureit message back to let me know that you are on [employer]. How to send a [employer] message: 1. Click on Send a message to your doctor's office. 2. Choose Question about a normal test result:free. 3. Following the remaining prompts to complete your message. Thank you, Iwona Suarez RN F CLOTH FINISHING RANGE OPERATOR documented in this encounter Progress Notes Delfina Knox MD - 06/29/2014 1:46 PM CST Progress Notes signed by Delfina Mccray MD at 07/01/14 1319 Author: Delfina Mccray MD Service: (none) Author Type: Physician Filed: 07/01/14 1319 Note Time: 06/29/14 1723 Status: Signed Apprenticeship Representative: Delfina Mccray MD (Physician) NAME: LIANA DOHERTY MR#: [id number] CSN: [id number] AUTHENTICATING CLINICIAN: Delfina Knox MD CONFIRM #: [id number] LOC: 527 CLINIC PROGRESS NOTE DATE OF VISIT: 06/29/2014 : 1985 Liana is a 28-year-old asked to be seen urgently for a rash. She initially, about 2 months ago, had a couple itchy spots on her back, then it started to spread to her arms. About 2 weeks later it spread to the thighs and arms and now tummy. She saw on a doctor in primary care who tried 5 days of prednisone, really did not make any difference. She saw Dr. Clark in [place] and at that time it was not severe and I think may be triamcinolone was prescribed, I am not 100% clear, but she got no results. Claritin was tried for a month with no benefits. She does have rheumatoid arthritis. She has been on sulfasalazine and meloxicam, which is a nonsteroidal anti-inflammatory drug for about a year. This all started about 2 months ago. When reviewing the systems, reviewing her history, [facility] About 2 months ago, but she thinks the spots on the backstarted before the hives, so she does not think it is a coincidence with the change in controlpill but she will look into that at home and see if we can figure the time frame out. Her center customer service associate is not here as well and again she does have history of rheumatoid arthritis. Review of systems for infections were negative for any sinus problems. No teeth problems. No vaginaldischarge. No abdominal complaints. No urinary tract infections. No problems with her arthritis; actually her arthritis has been better since on sulfasalazine and meloxicam. She feels the bumps on the back were very similar to the ones on the arms and legs and nothing different; she does not think they were bites. She reports that the rash never completely resolved but some days it is better, some days it is worse and not only is it itchy, it is also uncomfortable and painful on occasion. She does not think food is changed, she is on the same diet she has always been on. No street drugs. No change in toothpaste or mints or gum. She overall feels well except for this terrible rash. She is leaving for [place] on , will back though on Sunday night. She did see ER this weekend; a CBC was normal. Lyme screen was negative and her sedimentation rate thankfully was only 8. EXAMINATION: She has what looks like classic hives on the thighs and arms, but when I draw one out she said it will stay there for several days before it changes position, and she also says that the rash can be itchy but it also could be painful. She has small dime and nickel sized areas of erythema that are palpable over the thighs and arms, very little over the tummy, nothing over the back. The face looks flushed. I have known her in the past for melanoma and shows a little bit more flushed. No joint destruction of the hands or feet were seen. She overall looks healthy and is not scratching excessively in theoffice. ASSESSMENT: I believe urticarial but need to rule out urticarial vasculitis, especially with her autoimmunity problems. She was worried about lupus and I do not think it is lupus, although certainly lupus could start with urticaria as well. At this point, I would like to do a biopsy to make sure it is not urticarial vasculitis. Put her on prednisone for her vacation; a tapering dose starting with 40 mg dropping down to 10, side affects discussed. She is to call me with questions or concerns. As soon as we get the results back, if it is urticaria, we may want have her go off control pills, use a second form of controller as the primary liked on condoms, maybe even consider diaphragm just be off hormones for a while and see if that helps. If not, we certainly would want to consider changing sulfasalazine or the meloxicam, one or the other, as it is a possibility, even though they have been prescribed a year ago, at they are contributing. If it is urticarial vasculitis, further anti-immunity medication may be necessary. A 3 mm plug biopsy was done on the right upper outer thigh, one 5-0 Ethilon stitch placed; she tolerated it well. Wound care instructions given verbally. Lidocaine 1% with epi at1:100,000 was used and Hibiclens for soap. Vaseline, Telfa, and a surgical dressing applied as she is allergic to Band-Aids. I will see her back in I think it is 15 days for suture removal and discussion of what we find and how she is doing. We did not, but I could consider also putting her on Zyrtec at night, Claritin in the morning. I am not a big believer that adding an H2 blockers makes a big difference when you getting no results from the initial. I did not do any further blood work but certainly that could be considered as well on follow up, depending on what we find. I spent 20 minutes with her, 15 minutes in conversation, 5 minutes for the exam and biopsy and she is due for a full-body exam and we have got it scheduled in July. KALEB:JIMMIE C: CONFIRM #: [id number] DIAGNOSIS: Skin, right thigh, punch biopsy: - Urticarial dermatitis, see comment. COMMENT: The findings include a perivascular and interstitial mixed dermal inflammatory infiltrate with neutrophils. A PAS stain performed with proper positive control does not reveal evidence of a fungal infection. The findings favor urticaria, an urticarial medication reaction, the urticarial phase of bullous pemphigoid, or an urticarial hypersensitivity reaction. The differential diagnosis also includes palisaded granulomatous neutrophilic dermatitis. Although clear vasculitis is not observed, the histologic findings do not completely exclude an evolving urticarial vasculitis. Clinical correlation is advised. This case was reviewed by a second board-certified dermatopathologist, Dr. Nash Omalley, who concurs with the diagnosis. pt informed on voicemail F CLOTH FINISHING RANGE OPERATOR documented in this encounter Plan of Treatment Upcoming Encounters Date Type Specialty Care Team Description 05/18/2022 Appointment Rheumatology Erasmo Horn MD [address] [facility] [place] [id number] (Wo rk) documented as of this encounter Procedures Procedure Name Priority Date/Time Associated Diagnosis Comme nts SURGICAL PATH, PARK Routine 06/29/2014 6:00 AM Re sulparker for this [facility] CHIEF CLOTH FINISHING RANGE OPERATOR procedure are i n the results section. documented in this encounter Results Pathology Report (06/29/2014 6:00 AM CHIEF CLOTH FINISHING RANGE OPERATOR) Component Value Ref Test Analysis Performed At [facility] gist Range Method Time Signature Path: ? FINAL DERMATOPATHOLOGY REPO RT HP CONVERSION Pathology #: [id number] ? Date Obtained: 06/29/2014 ?Date Received: 06/29/2014 DIAGNOSIS: ? Skin, right thigh, punch biopsy: ?- Urticarial dermatitis, see comment. ? COMMENT: The findings include a perivascular and inte rstitial ? mixed dermal inflammatory infiltrate with neutrophils . A PAS stain ? performed with proper positive control does not revea l evidence of ? a fungal infection. The findings favor urticaria, an urticarial ? medication reaction, the urticarial phase of bullous pemphigoid, ? or an urticarial hypersensitivity reaction. ??The dif ferential ? diagnosis also includes palisaded granulomatous neutr ophilic ? dermatitis. ??Although clear vasculitis is not observ ed, the ? histologic findings do not completely exclude an evol ving ? urticarial vasculitis. Clinical correlation is advise d. This case ? was reviewed by a second board-certified dermatopatho logist, . ? Nash Omalley, who concurs with the diagnosis. ?MEAGAN LARIOS MD ? (electronic signatur e) ? 06/30/2014 ??17:1 5 CLINICAL NOTES: ? Urticaria vs urticarial vasculitis ORGAN/TISSUE SITE ? Right thigh GROSS DESCRIPTION: ? Received in a formalin-filled container labeled with the patient's ? name is a 3 x 3 x 6 mm punch biopsy of skin. ??The sp ecimen is ? marked with black ink and submitted entirely in one c assette. ? de ? JOHNATHAN MICROSCOPIC DESCRIPTION: ? Microscopic examination performed ? End of Report Specimen Anatomical Collection Method Collection Time Receive d Time (Source) Location / / Volume Laterality SKIN PUNCH BIOPSY 06/29/2014 6:00 AM 10/2013 6:00 SPECIMEN / Unknown CHIEF CLOTH FINISHING RANGE OPERATOR AM CHIEF CLOTH FINISHING RANGE OPERATOR Delfina Knox MD LAB_1 Performing Organization Address City/State/ZIP Code Phon e Number HP CONVERSION documented in this encounter Visit Diagnoses Diagnosis Urticaria, unspecified - Primary Other specified disease of sebaceous gla nds Disturbance of skin sensation Unspecified pruritic disorder documented in this encounter Care Teams Commercial Lines Manager Relationship Specialty Start Date End Date Md Valentin MD PCP - General 11/28/10 03/07/15 [place] [address] documented as of this encounter
--- OUTSIDE RECORDS SUMMARY | 2022-05-17 08:31 | XMS_ITS | Encounter Summary ---
:1985 Author Organization [employer] Address [address] [place] [address] Care Team Providers Name Role Phone Md YOBANI Valentin Primary Care Provider Encounter Details Date Type Department Care Team Description 08/08/2011 Notes/Orders [facility] [place], [place] [address] Le Knight [place] [address] [place] skin [phone] [place], [place] [phone] (Wo rk) Social History Tobacco Use Types Packs/Day Years Used Date Smoking Tobacco: Never Assessed Sex Assigned at Date Recorded Not on file documented as of this encounter Plan of Treatment Upcoming Encounters Date Type Specialty Care Team Description 05/18/2022 Appointment Rheumatology Erasmo Horn MD [address] [facility] [address] [address] (Wo rk) documented as of this encounter Procedures Procedure Name Priority Date/Time Associated Diagnosis Comme nts XR CHEST 2 VIEWS Routine 08/08/2011 9:21 AM 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 Procedure Note Don Tanner MD - 02/11/2016Format ting of this note might be different from the original. Two-view chest FINDINGS: Chest is negative and unchange d from 07/25/2010. 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
--- OUTSIDE RECORDS SUMMARY | 2022-05-17 08:31 | XMS_ITS | Encounter Summary ---
:1985 Author Organization [facility] Address [address] [place] [address] Care Team Providers Name Role Phone Liana Tovar MD Primary Care Provider Reason for Visit Reason Comments Pharyngitis Encounter Details Date Type Department Care Team Description 03/29/2015 Hospital Encounter [facility] Nathan Lopez Uvulitis (Primary Dx); Care PA-C Throat pain [address] [address] [place] [address] [phone] Social History Tobacco Use Types Packs/Day Years Used Date Smoking Tobacco: Never Assessed Sex Assigned at Date Recorded Not on file documented as of this encounter Last Filed Vital Signs Vital Sign Reading Time Taken Comments Blood Pressure 136/97 03/29/2015 8:23 AM CDT Pulse 127 03/29/2015 8:23 AM CDT Temperature 37.4 ??C (99.3 ??F) 03/29/2015 8:23 AM CDT Respiratory Rate 20 03/29/2015 8:23 AM CDT Oxygen Saturation - - Inhaled Oxygen Concentration - - Weight - - Height - - Body Mass Index - - documented in this encounter Medications at Time of Discharge [...] 0.3 Inject 0.3 mLs into 2 each 11 12/20/2015 MG/0.3ML injection the muscle as needed for Anaphylaxis. May Repeat Levonorgestrel-Ethinyl Take 1 tablet by 112 tablet 4 015 11/04/2015 Estrad (AKA mouth daily (every AVIANE;ALESSE;LESSINA) 24 hours). take 0.1-20 MG-MCG tablet continuously for 3 months at a time. Meloxicam (aka MOBIC) Take 15 mg by mouth 0 06/2703/03/2016 tablet TABS daily (every 24 hours). Meloxicam (MOBIC) 15 MG Take 15 mg by mouth 0 08/201308/18/2016 tablet Daily. Reported on 08/18/2016 Indications: PN: metoPROLOL succinate Take 1 tablet by 90 tablet 3 5 11/25/2015 (AKA TOPROL XL) 50 MG 24 mouth daily (every hour release tablet 24 hours). take before bed sulfaSALAzine (aka Take 1,500 mg by 0 06/27/2014 03/03/2016 AZULFIDINE) tablet mouth 2 times daily. sulfaSALAzine Take 1,500 mg by 0 06/27/201403/16 (AZULFIDINE) 500 MG mouth 2 times daily. tablet documented as of this encounter ED Notes Nathan Lopez PA-C - 03/29/2015 8:45 AM CDT SUBJECTIVE: Liana Washington is a 29 y.o.female presenting to urgent care for evaluation of sore throat. Started yesterday. Low-grade fever. She feels like there's something in the back of her throat but she has been able to swallow and open mouth fully. No one else sick around her. No recent travel. No recent illnesses. No ear pain. No cough Adverse Drug Reactions: Adhesive; Allergen not in computer; Bacitracin; Metronidazole; and [place] Medications: CALCIUM CARBONATE, Cholecalciferol (Vitamin D3), EPINEPHrine, SUMAtriptan, ascorbic acid, levonorgestrel-ethinyl estradiol, meloxicam, metoprolol succinate, ondansetron, and sulfaSALAzine Social history: History Substance Use Topics ??? Smoking status: Former Smoker -- 0.50 packs/day for 4 years Types: Cigarettes Quit date: 06/27/2013 ??? Smokeless tobacco: Never Used Comment: Smoking History Packs/day: ??? Alcohol Use: Yes Comment: Alcoholic Drinks/day: Amount:1-2 drinks; Freq:=< Monthly; Past Medical History: Past Medical History Diagnosis Date ??? Arthritis ??? Cancer (HCC) hx of skin cancer ??? Rheumatoid arthritis(714.0) (HCC) OBJECTIVE: Vital Signs: BP 136/97 mmHg Pulse 127 Temp(Src) 37.4 ??C (99.4 ??F) (Oral) Resp 20 General: Patient does not appear acutely ill. Skin: Mucous membranes are moist. No sign of obvious dehydration. Ears: Canals normal without lesions. TMs: Normal Nose: Mildly congested. Pharynx: Uvula is swollen, erythematous, boggy, but midline. No trismus. Neck: Minimal adenopathy Respiratory: Normal respiratory effort. Lungs are clear with good breath sounds. Heart: RR without murmurs, rubs, or gallops. Lab: Labs Reviewed N/O MICRO CULTURE STREP FOLLOW UP FROM RAPID LAB RAPID STREP GROUP A WAIVED Narrative: Performed at [facility], [address] [place] [address] Orders Placed This Encounter ??? Rapid Strep Group A Waived: Standing Status: Standing Number of Occurrences: 1 Standing Expiration Date: Order Specific Question: Source Answer: Throat: ??? dexamethasone (DECADRON) injection 10 mg Sig: ASSESSMENT: Diagnosis (ICD9) ICD-9-CM ICD-10-CM 1. Uvulitis 528.3 K12.2 2. Throat pain 784.1 R07.0 PLAN: Medications dexamethasone (DECADRON) injection 10 mg (10 mg Oral Given 03/29/15843) Medications Prescribed this Visit None Discharge Instructions Use warm fluids, soup(Chicken Soup has been studied and show to be helpful), salt water gargles, Tylenol or ibuprofen as tolerated, as well as Chloraseptic or Cepacol. Finish any prescribed medications. Rest. Watch closely for worsening symptoms and follow up as needed . You are contagious! Do not share food or drink with others while you have symptoms. Good handwashing. Hand gel works to help prevent spreading of germs as well. Watch for problems opening your mouth fully or for the inability to swallow... if this occurs, you should return to Urgent Care or an Emergency Room immediately. Discussed treatment of viral illnesses, and lack of indication for antibiotics. Discussed contagiousness. Encourage nutritious liquids. Use ibuprofen or Tylenol for fever or pain. Chicken soup and saltwater gargles recommended. Cepacol or Chloraseptic may also be used. Rest at home as needed until symptoms are improving. RTC p.r.n. if not gradually improving. The patient was discharged ambulatory and in stable condition. documented in this encounter Miscellaneous Notes Medication History - Cayetano Bahena MD - 03/29/2015 8:45 AM CDT INPATIENT MEDS Encounter Date: 03/29/15 dexamethasone (DECADRON) injection 10 mg Start Date:03/29/15, End Date:03/29/15, Frequency:ONCE Taken Dose Action User Route Site Recorded Comment Reason 03/29/15843 10 mg Given Ro Campa RN Oral - 03/29/15843 - - ED AVS Snapshot - Cayetano Bahena MD - 03/29/2015 8:45 AM CDT Images from the original note were not included. [facility] [address] [place] [address] Dept: [phone] [email or web address] Liana Sherine Padmini 03/29/2015 8:24 AM Hospital Encounter Description: Female : 1985 Department: [facility] Thank you for choosing [facility] for your health care visit with Nathan Lopez PA-C. We are happy to care for you and provide this summary of your visit. Your primary manager medicare marketing iscurrently listed as Liana Tovar MD (General). HERE IS WHAT YOU NEED TO KNOW To learn how you can take steps to stay as healthy as you can be visit [email or web address] Discharge Instructions Use warm fluids, soup(Chicken Soup has been studied and show to be helpful), salt water gargles, Tylenol or ibuprofen as tolerated, as well as Chloraseptic or Cepacol. Finish any prescribed medications. Rest. Watch closely for worsening symptoms and follow up as needed . You are contagious! Do not share food or drink with others while you have symptoms. Good handwashing. Hand gel works to help prevent spreading of germs as well. Watch for problems opening your mouth fully or for the inability to swallow... if this occurs, you should return to Urgent Care or an Emergency Room immediately. HERE IS WHAT YOU NEED TO DO Call your clinic if: You develop new symptoms Your symptoms worsen unexpectedly You are not improving as expected You have questions about your visit or medications Future Appointments Provider Department Dept Phone 08/09/2015 10:30 AM Delfina Mccray MD [facility] [phone] Follow-up Information Follow up with [facility]. Specialty: Urgent Care Why: As needed Contact information: [address] [place] [address] HERE IS INFORMATION FROM TODAY'S VISIT Reason for Visit Pharyngitis (SORE THROAT) Reason for Visit History Health issues considered by your clinician today Uvulitis - Primary Throat pain If you had any tests, you will be notified of your abnormal results by your clinic. We Performed the Following Rapid Strep Group A Waived: Medications administered today None MEDICATIONS As of today's visit, these are your current medications DOSAGE ascorbic acid (VITAMIN C) 500 mg tablet Take 1,000 mg by mouth daily (every 24 hours). CALCIUM CARBONATE (CALCIUM 600 ORAL) Take by mouth. pt unsure of dose Cholecalciferol, Vitamin D3, (VITAMIN D-3) 2,000 unit Tab Take 1 tablet by mouth daily (every 24 hours). EPINEPHrine (EPIPEN) 0.3 mg/0.3 mL (1:1,000) injection Inject 0.3 mLs into the muscle as needed forAnaphylaxis. May Repeat levonorgestrel-ethinyl estradiol (AVIANE, ALESSE, LESSINA) 0.1-20 mg-mcg per tablet Take 1 tablet by mouth daily (every 24 hours). take continuously for 3 months at a time. meloxicam (MOBIC) 15 mg tablet Take 15 mg by mouth daily (every 24 hours). metoprolol succinate (TOPROL-XL) 50 mg 24 hr tablet Take 1 tablet by mouth daily (every 24 hours). take before bed ondansetron (ZOFRAN-ODT) 4 mg disintegrating tablet Take 1 tablet by mouth every 8 hours as needed for Nausea or Vomiting. Dissolve tablet on tongue sulfaSALAzine (AZULFIDINE) 500 mg tablet Take 1,500 mg by mouth 2 times daily. SUMAtriptan (IMITREX) 25 mg tablet Take 1 tablet by mouth as needed for Migraine. May repeat after 2 hours if needed. Max 8 tabs/24 hours. Max 9 days/month Vital signs from your visit Your Vital Signs Were BP Pulse Temp(Src) Resp Smoking Status 136/97 mmHg 127 37.4 ??C (99.4 ??F) (Oral) 20 Former Smoker Allergies as of 03/29/2015 Adhesive 09/30/2014 Allergy Rash Paper tape & Tegaderm is okay Allergen Not In Computer 09/30/2014 Allergy Hives Dairy Bacitracin 08/02/2010 Allergy Rash Metronidazole 10/15/2009 Allergy Other (See Comments) Headache [place] 11/19/2014 Allergy Hives Immunization History Reviewed on 10/09/2011 H1N1 0.5ML 08/24/2009 HEP B 10/23/2000 Hep B Ped/adol (0-19 yrs) 05/27/2001, 11/25/2000 INFLUENZA TIV 0.5 ML (36+ MOS) 08/02/2010, 06/30/2008, 08/21/2006, 08/25/2005 PPD 04/28/2008 Refusal To Vaccinate 05/26/2008 Tdap (Boostrix) 04/27/2006 About You Date Of Sex Race Ethnicity Preferred Language 1985 Female White Non- Swedish This document contains confidential information about your health and care. It is provided directlyto you for your personal, private use only. documented in this encounter Plan of Treatment Upcoming Encounters Date Type Specialty Care Team Description 05/18/2022 Appointment Rheumatology Erasmo Horn MD [address] [facility] [place] [address] [address] (Wo rk) documented as of this encounter Procedures Procedure Name Priority Date/Time Associated Diagnosis Comme nts BETA STREP FOLLOWUP Routine 03/29/2015 9:51 AM Re sults for this CDT procedure are i n the results section. GROUP A STREP STAT 03/29/2015 8:24 AM Throat pain Results for this ANTIGEN SCREEN CDT procedure are in the results section. documented in this encounter Results BETA STREP FOLLOWUP (03/29/2015 9:51 AM CDT) [facility] gist Method Time Signature Source Throat HP CONVERSION Site HP CONVERSION Strep Screen No beta HP CONVERSION hemolytic Strep Group A isolated. Specimen (Source) Anatomical Collection Method Collection Time Re ceived Time Location / / Volume Laterality Throat: 03/29/2015 9:51 AM CDT Narrative HP CONVERSION - 03/30/2015 12:15 PM CDT Performed at [facility] , ??[address] [place] [address], ?? CLIA Number [id number] Stephon Cunningham MD LAB_1 Performing Organization Address City/State/ZIP Code Phon e Number HP CONVERSION RAPID STREP GROUP A WAIVED (03/29/2015 8:24 AM CDT) Analysis Performed At [facility] logist Time Signature Strep A Negative Negative HP CONVERSION Antigen Strep A Source Throat: HP CONVERSION Specimen Anatomical Collection Method Collection Time Receive d Time (Source) Location / / Volume Laterality 03/29/2015 8:24 AM 08/03/201 5 9:51 CDT AM CDT Narrative HP CONVERSION - 03/29/2015 9:54 AM CDT Performed at [facility], [address] [facility], [place] [address] Stephon Cunningham MD LAB_1 Performing Organization Address City/State/ZIP Code Phon e Number HP CONVERSION documented in this encounter Visit Diagnoses Diagnosis Uvulitis - Primary Cellulitis and abscess of oral soft tiss ues Throat pain Triage Assessment Note - Maria De Jesus Garcia RN - 03/29/2015 8:22 AM CDT onset yesterday with fever, sinus pressure and sore throat. documented in this encounter Care Teams Manager Search Relationship Specialty Start Date End Date Liana Tovar MD PCP - General 03/08/15 [address] [place] [address] documented as of this encounter
--- OUTSIDE RECORDS SUMMARY | 2022-05-17 08:31 | XMS_ITS | Encounter Summary ---
:1985 Author Organization [employer] Address [address] [place] [address] Care Team Providers Name Role Phone Manjit Tovar MD Primary Care Provider Reason for Visit Reason Comments Toe Pain Encounter Details Date Type Department Care Team Description 06/03/2015 Hospital Encounter [facility] Carlos Walker S In grown toenail; Care SDARRION Pain of toe of right foot [address] [place] [address] E [phone] [place] [address] Social History Tobacco Use Types Packs/Day Years Used Date Smoking Tobacco: Never Assessed Sex Assigned at Date Recorded Not on file documented as of this encounter Last Filed Vital Signs Vital Sign Reading Time Taken Comments Blood Pressure 130/93 06/03/2015 8:55 AM CDT Pulse 88 06/03/2015 8:55 AM CDT Temperature 36.9 ??C (98.4 ??F) 06/03/2015 8:55 AM CDT Respiratory Rate 16 06/03/2015 8:55 AM CDT Oxygen Saturation - - Inhaled [...] Nausea or Vomiting. Dissolve tablet on tongue amoxicillin-clavulanate Take 1 tablet by 20 tablet 0 201406/13/2015 (aka AUGMENTIN) tablet mouth 2 times daily for 10 days. SUMAtriptan (IMITREX) 25 Take 1 tablet by [...] documented as of this encounter ED Notes Carlos Walker PA-C - 06/03/2015 10:45 AM CDT ED Provider Notes signed by Carlos Walker PA-C at 06/04/15845 Author: Carlos Walker PA-C Service: (none) Author Type: Physician Timber Rider Filed: 06/04/1546 Note Time: 06/03/152244 Status: Signed Migratory Game Bird Biologist: Carlos Walker PA-C (Physician Timber Rider) NAME: MANJIT WASHINGTON MR#: [id number] CSN: [id number] AUTHENTICATING CLINICIAN: Carlos Walker PA-C CONFIRM #: [id number] LOC: [facility] URGENT CARE PROGRESS NOTE DATE OF VISIT: 06/03/2015 : 1985 SUBJECTIVE: This is a 29-year-old female who presents to clinic today complaining of right 2nd toe and swelling for the last 2 days. She is not sure what started her symptoms, but is concerned because she is actually getting on Sunday. She does not have a history of ingrown toenails. She states it hurtswere the toenail meets the skin. It has been more red. There has been no exudate from it. She does not have an issue of toenail fungus. She denies any redness or streaking up her foot. She denies fever. REVIEW OF SYSTEMS: Remainder of review of systems is negative. ALLERGIES: Per Epic. MEDICATIONS: Per Epic. PAST MEDICAL HISTORY: Noncontributory. SOCIAL HISTORY: She is a former smoker. OBJECTIVE: VITAL SIGNS: Temp is 36.9, pulse is 88. Respirations are 16. Blood pressure is 130/93. GENERAL: This is a 29-year-old, well-developed, well-nourished female, in no acute distress. She is alert and oriented to person, place, and time. HEENT: Head is normocephalic, atraumatic. Eyes are PERRL. LUNGS: Clear to auscultation in all hernandez. No wheezes, rales, or rhonchi. HEART: Regular rate and rhythm. No murmurs, rubs, or gallops. EXTREMITIES: Examination of the per patient's right foot reveals some mild erythema over the lateraltoenail margin of the right 2nd toe. It does appear to be slightly ingrown. There is no exudate noted. There is no redness or streaking up the foot. CMS is intact. Cap refill is less than 5 seconds. ASSESSMENT: 1. Ingrown toenail. 2. Toe pain. PLAN: Because the patient is getting on Sunday, we are not going to remove the toenail at this point. We are just going to put her on Augmentin 875 mg twice daily for the next 10 days. She should soak her foot 2-3 times a day in warm soapy water with Epsom salts. She should keep her toenail trimmed. She was given the number for Podiatry if her toe pain is not improving. She will go see them next week for a possible toenail removal. The patient was comfortable with this plan and she was discharged from the clinic in stable condition. SSK:MEDQ C: CONFIRM #: [id number] documented in this encounter Miscellaneous Notes Medication History - Cayetano Bahena MD - 06/03/2015 9:16 AM CDT INPATIENT MEDS Encounter Date: 06/03/15 amoxicillin-clavulanate (AUGMENTIN) 875-125 mg per tablet Start Date:06/03/15, End Date:06/13/15, Frequency:2 TIMES DAILY *No Administrations Recorded ED AVS Snapshot - Cayetano Bahena MD - 06/03/2015 9:16 AM CDT Images from the original note were not included. [facility] [address] [place] [address] Dept: [phone] [email or web address] Manjit Washington 06/03/2015 8:57 AM Hospital Encounter Description: Female : 1985 Department: [facility] Thank you for choosing [facility] for your health care visit with Carlos Walker PA-C. We are happy to care for you and provide this summary of your visit. Your primary emergency care attendant iscurrently listed as Manjit Tovar MD. HERE IS WHAT YOU NEED TO KNOW To learn how you can take steps to stay as healthy as you can be visit [email or web address] Discharge Instructions Soak foot in warm soapy water or episom salt 2-3 times daily. Keep nail trimmed. Begin antibiotic. If no improvement, call podiatry. HERE IS WHAT YOU NEED TO DO Call your clinic if: You develop new symptoms Your symptoms worsen unexpectedly You are not improving as expected You have questions about your visit or medications Future Appointments Provider Department Dept Phone 08/09/2015 10:30 AM Delfina Mccray MD [facility] [phone] HERE IS INFORMATION FROM TODAY'S VISIT Reason for Visit Toe Pain Reason for Visit History If you had any tests, you will be notified of your abnormal results by your clinic. Medications administered today None MEDICATIONS As of today's visit, these are your current medications DOSAGE amoxicillin-clavulanate (AUGMENTIN) 875-125 mg per tablet Take 1 tablet by mouth 2 times daily for 10 days. ascorbic acid (VITAMIN C) 500 mg tablet (Taking) Take 1,000 mg by mouth daily (every 24 hours). CALCIUM CARBONATE (CALCIUM 600 ORAL) (Taking) Take by mouth. pt unsure of dose Cholecalciferol, Vitamin D3, (VITAMIN D-3) 2,000 unit Tab (Taking) Take 1 tablet by mouth daily (every 24 hours). EPINEPHrine (EPIPEN) 0.3 mg/0.3 mL (1:1,000) injection (Taking) Inject 0.3 mLs into the muscle as needed for Anaphylaxis. May Repeat levonorgestrel-ethinyl estradiol (AVIANE, ALESSE, LESSINA) 0.1-20 mg-mcg per tablet (Taking) Take 1tablet by mouth daily (every 24 hours). take continuously for 3 months at a time. meloxicam (MOBIC) 15 mg tablet (Taking) Take 15 mg by mouth daily (every 24 hours). metoprolol succinate (TOPROL-XL) 50 mg 24 hr tablet (Taking) Take 1 tablet by mouth daily (every 24hours). take before bed ondansetron (ZOFRAN-ODT) 4 mg disintegrating tablet Take 1 tablet by mouth every 8 hours as needed for Nausea or Vomiting. Dissolve tablet on tongue sulfaSALAzine (AZULFIDINE) 500 mg tablet (Taking) Take 1,500 mg by mouth 2 times daily. SUMAtriptan (IMITREX) 25 mg tablet Take 1 tablet by mouth as needed for Migraine. May repeat after 2 hours if needed. Max 8 tabs/24 hours. Max 9 days/month Vital signs from your visit Your Vital Signs Were BP Pulse Temp(Src) Resp Smoking Status 130/93 mmHg 88 36.9 ??C (98.4 ??F) (Oral) 16 Former Smoker Allergies as of 06/03/2015 Adhesive 09/30/2014 Allergy Rash Paper tape & Tegaderm is okay Allergen Not In Computer 09/30/2014 Allergy Hives Dairy Bacitracin 08/02/2010 Allergy Rash Metronidazole 10/15/2009 Allergy Other (See Comments) Headache [place] 11/19/2014 Allergy Hives Immunization History Reviewed on 10/09/2011 H1N1 0.5ML 08/24/2009 HEP B 10/23/2000 Hep B Ped/adol (0-19 yrs) 05/27/2001, 11/25/2000 INFLUENZA TIV 0.5 ML (36+ MOS) 08/02/2010, 06/30/2008, 08/21/2006, 08/25/2005 PPD 04/28/2008 Refusal To Vaccinate 05/26/2008 Tdap (Boostrix) 04/27/2006 About You Date Of Sex Race Ethnicity Preferred Language 1985 Female White Non- Chilean This document contains confidential information about your health and care. It is provided directlyto you for your personal, private use only. documented in this encounter Plan of Treatment Upcoming Encounters Date Type Specialty Care Team Description 05/18/2022 Appointment Rheumatology Erasmo Horn MD [address] [facility] [place] [address] [address] (Wo rk) documented as of this encounter Visit Diagnoses Diagnosis Ingrown toenail Ingrowing nail Pain of toe of right foot Pain in limb Triage Assessment Note - Ruth Marx RN - 06/03/2015 8:53 AM CDT pt with right toe pain and swelling. Symptoms started 2-3 days ago. No fever documented in this encounter Care Teams Chief Of Vital Statistics Relationship Specialty Start Date End Date Manjit Tovar MD PCP - General 03/08/15 [address] [place] [address] documented as of this encounter
--- OUTSIDE RECORDS SUMMARY | 2022-05-17 08:31 | XMS_ITS | Encounter Summary ---
:1985 Author Organization [employer] Address [address] [place] [address] Care Team Providers Name Role Phone Manjit Tovar MD Primary Care Provider Reason for Visit Reason Comments Skin Check Encounter Details Date Type Department Care Team Description 08/09/2015 Office Visit Delfina Orta Sun-dama ged skin (Primary Dx); Dermatology Seborrheic keratosis; [address] [address] [place] Dysplastic nevi; [place] [address] [place], [place] Dermatofibroma; [phone] Personal history of malignant melanoma o f skin; [phone] (Wo rk) Skin exam, screening for cancer Social History Tobacco Use Types Packs/Day Years Used Date Smoking Tobacco: Never Assessed Sex Assigned at Date Recorded Not on file documented as of this encounter Patient Instructions Patient InstructionsMaddy Chapman MA - 08/09/2015 10:17 AM CST DIRECT PHONE NUMBER: MADDY GRAY [phone]. FEEL FREE TO CALL WITH ANY QUESTIONS OR CONCERNS YOU MAY HAVE. MOLES TO HAVE CHECKED IN CLINIC: BLACK, BISHOP OR BROWN IN THE CENTER WITH A RED OR COPPER TONE COLORING AROUND IT. ANY MOLES THAT CHANGE OR DOUBLE IN SIZE. SUNSCREEN: PREFER CLOTHING OVER SUNSCREEN. WHEN USING SUNSCREEN, PREFER SUNSCREEN WITH ZINC BASE. * FOR EXAMPLE: DANNY SPF 30 OR 50, NEUTROGENA SENSITIVE SKIN, CITY BLOCK BY CLINIQUE, BLUE LIZARD OR AQUASPORT WHICH IS AVAILABLE AT [employer]. VITAMIN D-3 RECOMMENDATIONS: - TAKE VITAMIN D [...] LOTION, EUCERIN PROFESSIONAL REPAIR, EUCERIN ECZEMA RELIEF, AND CUREL LOTION. *BEST TO APPLY THESE RIGHT AFTER A SHOWER OR BATH IN ADDITION TO YOUR DAILY USE Thank you for choosing Dermatology at [facility]! We welcome your feedback. Comment cards are located in our lobby. For questions, please call and choose one of the following options: - for appointments and scheduling, press 1 - to speak with a nurse about a medical question from 7:30 am to 5 pm, press 2 - after hours emergencies, follow the instructions to be transferred to the aviation medicine specialist provider For medication refills, please contact your pharmacy. For questions regarding billing, please contact [employer] at . Please consider enrolling in [employer]. Please follow the instructions below to securely access your online medical record. [employer] allows you to send messages to your doctor, view your test results, renew your prescriptions, schedule appointments, and more. How Do I Sign Up? 1. In your Internet browser, go to: [email or web address] 2. Click on the Enter Activation Code link under the New User? section. You will see the New Member Sign Up page. 3. Enter your [employer] Activation Code exactly as it appears below. You will not need to use this code after you???ve completed the sign-up process. If you do not sign up before the expiration date, youmust request a new code. [employer] Activation Code: Activation code not generated Current [employer]ift Status: Active 4. Enter the last four digits of your Social Security Number ([id number]) and Date of (mm/dd/yyyy) as indicated and click Next. You will be taken to the next sign-up page. 5. Create a [employer]ift ID. This will be your [employer] login ID and cannot be changed, so think of one that is secure and easy to remember. 6. Create a [employer] password. You can change your password at any time. 7. Enter your Security Question and Answer. This can be used at a later time if you forget your password. Click Next. 8. Enter your e-mail address. You will receive e-mail notification when new information is availablein zPerfectGift. 9. Click Sign In. You can now view your medical record. Additional Information If you have questions, you can call [phone] to talk to our [employer] staff. Remember, [employer] is NOT to be used for urgent needs. For medical emergencies, dial 911. R POLLUTION SPECIALIST documented in this encounter Progress Notes Delfina Knox MD - 08/09/2015 10:30 AM CST Progress Notes signed by Delfina Mccray MD at 08/10/15701 Author: Delfina Mccray MD Service: (none) Author Type: Physician Filed: 08/10/15701 Note Time: 08/10/15439 Status: Signed Production Tech: Delfina Mccray MD (Physician) NAME: MANJIT DOHERTY MR#: [id number] CSN: [id number] AUTHENTICATING CLINICIAN: Delfina Knox MD CONFIRM #: [id number] LOC: 527 CLINIC PROGRESS NOTE DATE OF VISIT: 08/09/2015 : 1985 . Manjit is a 29-year-old with a history of a melanoma in 2008, left breast 0.39 mm in depth, probable melanoma 0.18 mm in depth left anterior lower leg in 2010, severely dysplastic nevus, left forehead. She has a mole on the 2nd toe right foot that we have a photograph. 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 in May. Got to see her pictures. In fact, her ,Aly Juarez, was seen today and a mole was removed from his right lateral back. Her hives cleared off milk and almond. We have photographs we reviewed in the chart. I did recently reexcise a severely dysplastic nevus, left midback laterally, pink and inflamed. At the same time I took a 2nd one offthat was just moderately dysplastic in the same area. Moles to watch on the right neck are 2 moles sitting side by side. One has a flat junctional component and one is a compound elevated and acute care physician component. Full-body exam including scalp, face, neck, chest, back, abdomen, buttocks, groin, arms, legs, hands, feet, nails, perirectal, and pubic area. Above- mentioned moles in areas are unchanged. Scars are well healed. No sign of recurrence. No lymphadenopathy found in the neck, supraclavicular, infraclavicul ar, axillary, or groin. She has some fading moles on the face. She has a normal congenital compound nevus behind the left popliteal fossa. 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 I did not find anything worrisome today. No lymphadenopathy. ASSESSMENT: History of melanoma and normal exam today staying out of the sun. PLAN: Went over what to be watching for. Encouraged clothing and [employer] clothing for any trips in the future. 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
--- OUTSIDE RECORDS SUMMARY | 2022-05-17 08:31 | XMS_ITS | Encounter Summary ---
:1985 Author Organization [facility] Address [address] [place] [address] Care Team Providers Name Role Phone Md YOBAIN Valentin Primary Care Provider Reason for Visit Reason Comments Refill Encounter Details Date Type Department Care Team Description 12/12/2012 Refill [facility] Desire Cardenas, RN Refill [address] [place] [address] Social History Tobacco Use Types Packs/Day Years Used Date Smoking Tobacco: Never Assessed Sex Assigned at Date Recorded Not on file documented as of this encounter Nursing Notes Josey Friend M - 12/12/2012 10:39 AM CDT Last well exam 2-13-12 LMTC and schedule yearly exam 1mo refilled documented in this encounter Plan of Treatment Upcoming Encounters Date Type Specialty Care Team Description 05/18/2022 Appointment [facility]umatology Erasmo Horn MD [address] [facility] [address] (Wo rk) documented as of this encounter Visit Diagnoses Not on filedocumented in this encounter Care Teams Application Administrator Relationship Specialty Start Date End Date Md Valentin MD PCP - General 11/28/10 03/07/15 [place] [address] documented as of this encounter
--- OUTSIDE RECORDS SUMMARY | 2022-05-17 08:31 | XMS_ITS | Encounter Summary ---
:1985 Author Organization [employer] Address [address] [place] [address] Care Team Providers Name Role Phone Md YOBANI Valentin Primary Care Provider Reason for Visit Reason Comments Refill Encounter Details Date Type Department Care Team Description 10/01/2011 Refill [facility]Gyne[facility] Desire Cardenas, RN Refill [address] [place] [address] Social History Tobacco Use Types Packs/Day Years Used Date Smoking Tobacco: Never Assessed Sex Assigned at Date Recorded Not on file documented as of this encounter Nursing Notes Solange Emerson - 10/02/2011 10:25 AM CST Pt. called back. She has scheduled an appt. on 10/09/11. Was given 1 refill on her ocp. Y LAB TECHNICIAN Letitia Ivan - 10/02/2011 9:34 AM CST Unable to Renew medication per medication refill protocol. Last well 07/2010. Needs appt. documented in this encounter Plan of Treatment Upcoming Encounters Date Type Specialty Care Team Description 05/18/2022 Appointment Rheumatology Erasmo Horn MD [address] [facility] [place] [address] [address] (Wo rk) documented as of this encounter Visit Diagnoses Not on filedocumented in this encounter Care Teams Marble Carver Relationship Specialty Start Date End Date Md Valentin MD PCP - General 11/28/10 03/07/15 [place] [address] documented as of this encounter
--- OUTSIDE RECORDS SUMMARY | 2022-05-17 08:31 | XMS_ITS | Encounter Summary ---
:1985 Author Organization [employer] Address [address] [place] [address] Care Team Providers Name Role Phone Md YOBANI Valentin Primary Care Provider Encounter Details Date Type Department Care Team Description 08/06/2014 Notes/Orders Rowdy Galvez y Skrashaad, [place], [place] [address] [place] long-term (current) [facility] [place] [address] [address] use of other [phone] SAIGE 215 medications (Primary [facility] [place] [address] Dx) [phone] (Wo rk) Social History Tobacco Use Types Packs/Day Years Used Date Smoking Tobacco: Never Assessed Sex Assigned at Date Recorded Not on file documented as of this encounter Plan of Treatment Upcoming Encounters Date Type Specialty Care Team Description 05/18/2022 Appointment Rheumatology Erasmo Horn MD [address] [facility] [address] (Wo rk) documented as of this encounter Visit Diagnoses Diagnosis Encounter for long-term (current) use of other medications - Primary documented in this encounter Care Teams Digital Content Producer Relationship Specialty Start Date End Date Md Valentin MD PCP - General 11/28/10 03/07/15 [place] [address] documented as of this encounter
--- OUTSIDE RECORDS SUMMARY | 2022-05-17 08:31 | XMS_ITS | Encounter Summary ---
:1985 Author Organization [email or web address] Address [address] [place] [address] Care Team Providers Name Role Phone Md YOBANI Valentin Primary Care Provider Reason for Visit Reason Comments Annual Exam Encounter Details Date Type Department Care Team Description 10/09/2011 Office Visit Desire Cox, Prudencio trinidad (Primary Dx); Obstetrics/Gynecolog y RN Screening for STD (sexually transmitted disease); [facility] Screening [place] [address] Social History Tobacco Use Types Packs/Day Years Used Date Smoking Tobacco: Never Assessed Sex Assigned at Date Recorded Not on file documented as of this encounter Progress Notes Desire Choudhary, ANCELMO, JESUS - 10/09/2011 3:48 PM CST Preventive Exam & Pelvic SUBJECTIVE: Liana Washington is a 25 y.o. female who presents for a routine preventive physical exam. Past Medical/Surgical History: Melanoma Arthritis Field Training Manager History: LMP: Patient's last menstrual period was 09/28/2011. /Para: Pap Smear history: No abnormals STD history: None Current Contraceptive Method: Reclipsen Adverse Drug Reactions: Pt's Adverse Drug Reactions were reviewed and updated today. Current Medications: Reviewed and updated today. Family History: (First degree family members) Mother alive with hypertension. Father alive with hypertension and diabetes. 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 Marital Status: Single Sexual History: Monogamous relationship Habits: Tobacco: History Smoking status ??? Current Everyday Smoker -- 0.5 packs/day for 4 years Smokeless tobacco ??? Not on file Comment: Smoking History Packs/day: Alcohol: History Alcohol Use ??? Yes Alcoholic Drinks/day: Amount:1-2 drinks; Freq:=< Monthly; Preventive Health Assessment: Exercise: 3 times per week Lipid screen: Normal in 2007 Seatbelts are used. Tetanus immunization: Tdap in 2005 Review of Systems: With the exception of any items noted above, the remainder of the complete ROS is negative. OBJECTIVE: Vital Signs: LMP 09/28/2011 General: Patient alert, in NAD. HEENT: Pupils equal, sclera clear. Oropharynx normal. Neck: Supple, without thyromegaly or mass. CV: Regular rate and rhythm Resp: Clear to auscultation Abdomen: soft, non-tender, without masses or organomegaly Breasts: normal appearance, no masses or tenderness Lymphatic: No neck, supraclavicular, axillary or groin lymphadenopathy. Lower Extremities: FROM, normal gait without edema, lesions, or deformity. Pelvic: Normal external genitalia without lesions. Normal appearing vaginal epithelium. Normal appearing cervix without discharge or lesions. Uterus is normal size, shape, consistency and nontender. Normal adnexa in size, nontender and no masses. Rectal: deferred Skin: No lesions. Neuro: Motor & sensory function all intact. Psychiatric: Alert & oriented with normal affect and insight. Patient does not appear depressed or anxious. ASSESSMENT: Routine preventive exam. PLAN: Pap smear. GC/chlamydia Refill of Reclipsen Offered flu vaccine, patient declines. Follow-up in 1 year, sooner PRN any concerns. Desire Choudhary RN, [facility] documented in this encounter Plan of Treatment Upcoming Encounters Date Type Specialty Care Team Description 05/18/2022 Appointment [facility]umatology [facility]asmo Horn MD [address] [facility] [place] [address] (Wo rk) documented as of this encounter Procedures Procedure Name Priority Date/Time Associated Diagnosis Comme nts ANATOMICAL PATH Routine 10/09/2011 3:53 PM Result s for this LIQUID BASED WAREHOUSE AND RECEIVING SUPERVISOR procedure are i n the results section. PAP SMEAR SCREENING Routine 10/09/2011 3:53 PM Screening for R esults for this WAREHOUSE AND RECEIVING SUPERVISOR malignant neoplasm procedure are in of the cervix the results section. SEXUALLY TRANSMITTED Routine 10/09/2011 3:53 PM Screening for STD Results for this DISEASE PROBE WAREHOUSE AND RECEIVING SUPERVISOR (sexually procedure are in transmitted disease) the res ults section. HPV REFLEX Routine 10/09/2011 3:53 PM Results f or this WAREHOUSE AND RECEIVING SUPERVISOR procedure are i n the results section. documented in this encounter Results Sexually Transmitted Disease Probe (10/09/2011 3:53 PM WAREHOUSE AND RECEIVING SUPERVISOR) Component Value Ref Test Analysis Performed At [facility] gist Range Method Time Signature Chlamydia Chlamydia HP CONVERSION Trach DNA trachomatis NEGATIVE by DNA amplification GC DNA Neisseria HP CONVERSION gonorrhea NEGATIVE by DNA amplification. Comment: ? ORDERED BY: DESIRE CHOUDHARY SOURCE: Endocervical for molecular testi ng COLLECTED: ??10/09/11 15:53 ? PLATED: ? 10/09/11 16:23 Chlamydia trachomatis DNA Probe ?FINAL ? 10/11/11 11:11 Chlamydia trachomatis NEGATIVE by DNA a mplification The amplified DNA assay is cleared by [facility] for non-medicolegal diagnostic testing in [facility] adult population. Neisseria gonorrhea DNA Probe ?FINAL ? 10/11/11 11:12 Neisseria gonorrhea NEGATIVE by DNA amp lification. The amplified DNA assay is cleared by [facility] for non-medicolegal diagnostic testing in [facility] adult population. Specimen (Source) Anatomical Collection Method Collection Time Re ceived Time Location / / Volume Laterality Endocervical for 10/09/2011 3:53 molecular testing: PM WAREHOUSE AND RECEIVING SUPERVISOR Desire Choudhary RN LAB_1 Performing Organization Address City/State/ZIP Code Phon e Number HP CONVERSION HPV Reflex (10/09/2011 3:53 PM WAREHOUSE AND RECEIVING SUPERVISOR) P athologist Signature ASCUS PAP Pap: HP CONVERSION Interp Comment: Pap result: Atypical squamous cells of u ndetermined significance (ASCUS). HPV Negative HP CONVERSION Comment: NEGATIVE for high risk HPV Reference Range: Negative Human Papilloma virus(HPV) High Risk. A positive high-risk HPV test result ind icates that the patient may be infected with one or more of the following HPV genotypes: 16, 18, 31, 33, ??35, 39, 45, 51, 52, 56 , 58, 59, and 68, which are associated with cervical cancer and its precursor lesions. However, cross-reactions with other regan types may occur. Results should be correlated with cytolo gic/histologic findings. This test is performed using Ingenico rid Capture 2 methodology. For Spectra Analysis Instruments[employer]ocyte specimens: ??The p erformance characteristics of this test were validated by [facility]. The U.S. Food and Drug Administration (F DA) has not approved this test. ??The results are not intende d to be used as the sole means for clinical diagnosis or patient management decisions. [facility] is authorized under C linical Laboratory Improvement Amendments (CLIA) to perform high-complexity testing. HPV Source FOOD GENERAL MANAGER-Liquid HP CONVERSION HPV Interp Interp: HP CONVERSION Comment: Atypical squamous cells in the absence o f detectable HPV DNA may represent residual cellular changes or healing reaction after resolution of a prior HPV infectio n. ??However, other conditions (such as glandular lesions) c annot be ruled out. Please consider repeat Pap in 12 months, unless clinical data indicates the need for earlier follow-up . Specimen Anatomical Collection Method Collection Time Receive d Time (Source) Location / / Volume Laterality 10/09/2011 3:53 PM 2 3:53 WAREHOUSE AND RECEIVING SUPERVISOR PM WAREHOUSE AND RECEIVING SUPERVISOR Desire Choudhary RN LAB_1 Performing Organization Address City/State/ZIP Code Phon e Number HP CONVERSION Pap Smear (10/09/2011 3:53 PM WAREHOUSE AND RECEIVING SUPERVISOR) Specimen (Source) Anatomical Collection Method Collection Time Re ceived Time Location / / Volume Laterality 10/09/2011 3:53 PM WAREHOUSE AND RECEIVING SUPERVISOR Narrative HP CONVERSION - 10/16/2011 12:44 PM WAREHOUSE AND RECEIVING SUPERVISOR Final GYNECOLOGICAL CYTOLOGY REPORT Pathology #: [id number] ?Date Obtained: 10/09/2011 ? Date Received: 10/10/2011 INTERPRETATION/RESULTS: Atypical squamous cells of undetermined significance. Reflex HPV testing will be ordered, performed and r eported separately only for patients age 21 and older, per ACOG kush burr. SPECIMEN ADEQUACY: Satisfactory for Evaluation. ??Endocervi karina cells/transformation zone component present. Verified on 10/16/2011 ??by JOANN GAMA MD (electronic signature) CLINICAL NOTES: ? LMP: 09/29/2011. LIQUID BASED PAP SMEAR SPECIMEN TYPE: ?CERVICAL WITH REFLEX TO HPV IF ASCUS PLEASE NOTE: The pap smear is a screening test design ed to aid in the detection of cervical cancer and its pre cursor lesions. It is not a diagnostic procedure and prem uld not be used as the sole means of detecting cervical cancer. Both false-positive and false-negative report s may occur. ? End of Report Desire Choudhary RN LAB_1 Performing Organization Address City/State/ZIP Code Phon e Number HP CONVERSION Pap Smear Screening (10/09/2011 3:53 PM WAREHOUSE AND RECEIVING SUPERVISOR) P athologist Signature PAP Routine Collected HP CONVERSION Specimen Anatomical Collection Method Collection Time Receive d Time (Source) Location / / Volume Laterality 10/09/2011 3:53 PM 2 7:39 WAREHOUSE AND RECEIVING SUPERVISOR AM WAREHOUSE AND RECEIVING SUPERVISOR Desire Choudhary RN LAB_1 Performing Organization Address City/State/ZIP [facility] [place] Number HP CONVERSION documented in this encounter Visit Diagnoses Diagnosis Well woman exam - Primary Routine general medical examination at a health care facility Screening for STD (sexually transmitted disease) Screening examination for venereal disea se Screening for malignant neoplasm of the cervix documented in this encounter Care Teams Customer Agent Relationship Specialty Start Date End Date Md Valentin MD PCP - General 11/28/10 03/07/15 [place] [address] documented as of this encounter
--- OUTSIDE RECORDS SUMMARY | 2022-05-17 08:31 | XMS_ITS | Encounter Summary ---
:1985 Author Organization [employer] Address [address] [place] [address] Care Team Providers Name Role Phone Md YOBANI Valentin Primary Care Provider Reason for Visit Reason Comments UPDATE Encounter Details Date Type Department Care Team Description 07/17/2014 Telephone [facility] [address] Mauricio Piedra MD UPDATE [address] [place] [address] [place], [place] [phone] (Wo rk) Social History Tobacco Use Types Packs/Day Years Used Date Smoking Tobacco: Never Assessed Sex Assigned at Date Recorded Not on file documented as of this encounter Nursing Notes Mauricio Piedra MD - 07/17/2014 4:27 PM CST discussed ; will was #18 ARD/STEWARDESS E[employer]Y CLASS Kim Mulligan - 07/17/2014 1:15 PM CST DFG pt, seen this morning 07/17/14. Pt calling stating at appt was tested for food allergies and allwere negative. About 15 minutes after leaving appointment she felt itchy so checked her back and herright arm. On back noticed #18 had a hive surrounded by 2 red skin and was itchy. Right arm (pt states was tested for milk there) also had a hive with 2 red area surrounding it, also itchy. Pt is asking what was # 18 and any other advice? ARD/STEWARDESS [employer]Y CLASS documented in this encounter Plan of Treatment Upcoming Encounters Date Type Specialty Care Team Description 05/18/2022 Appointment Rheumatology Erasmo Horn MD [address] [facility] [address] (Wo rk) documented as of this encounter Visit Diagnoses Not on filedocumented in this encounter Care Teams Crate Tier Relationship Specialty Start Date End Date Md Valentin MD PCP - General 11/28/10 03/07/15 [place], [place] [id number] documented as of this encounter
--- OUTSIDE RECORDS SUMMARY | 2022-05-17 08:31 | XMS_ITS | Encounter Summary ---
:1985 Author Organization [employer] [facility] [employer] Address [address] [place] [address] Care Team Providers Name Role Phone Md YOBANI Valentin Primary Care Provider Encounter Details Date Type Department Care Team Description 07/14/2014 Lab Visit [facility] Allergic urticaria [address] [place] [address] Social History Tobacco Use Types Packs/Day Years Used Date Smoking Tobacco: Never Assessed Sex Assigned at Date Recorded Not on file documented as of this encounter Plan of Treatment Upcoming Encounters Date Type Specialty Care Team Description 05/18/2022 Appointment Rheumatology Erasmo Horn MD [address] [facility] [place] N [id number] (Wo rk) documented as of this encounter Procedures Procedure Name Priority Date/Time Associated Comments Diagnosis THYROID STIMULATING Routine 07/14/2014 11:37 Allergic urticari a Results for this HORMONE AM FUEL HOUSE ATTENDANT procedure are i n the results section. URINE CULTURE Routine 07/14/2014 11:37 Results fo r this AM FUEL HOUSE ATTENDANT procedure are i n the results section. ANTITHYROID Routine 07/14/2014 11:37 Allergic urticaria Resul ts for this PEROXIDASE AM [employer]EL HOUSE ATTENDANT procedure are i n the results section. LISA SCREEN Routine 07/14/2014 11:37 Allergic urticaria Resul ts for this AM FUEL HOUSE ATTENDANT procedure are i n the results section. URINE MICROSCOPIC Routine 07/14/2014 10:21 Result s for this AM [employer]UEL HOUSE ATTENDANT procedure are i n the results section. URINALYSIS ROUTINE, Routine 07/14/2014 10:21 Allergic urticari a Results for this MICRO/CULTURE IF POS AM FUEL HOUSE ATTENDANT procedu re are in the results section. CREATININE / GFR Routine 07/14/2014 10:12 Allergic urticaria R esults for this AM FUEL HOUSE ATTENDANT procedure are i n the results section. COMPLETE BLOOD Routine 07/14/2014 10:12 Allergic urticaria Res ults for this COUNT-W/DIFF AM [employer]EL HOUSE ATTENDANT procedure are i n the results section. DIFFERENTIAL Routine 07/14/2014 10:12 Results for this AM FUEL HOUSE ATTENDANT procedure are i n the results section. ALT (SGPT) Routine 07/14/2014 10:12 Allergic urticaria Resul ts for this AM [employer]EL HOUSE ATTENDANT procedure are i n the results section. AST Routine 07/14/2014 10:12 Allergic urticaria Resul ts for this AM [employer]EL HOUSE ATTENDANT procedure are i n the results section. BUN Routine 07/14/2014 10:12 Allergic urticaria Resul ts for this AM FUEL HOUSE ATTENDANT procedure are i n the results section. documented in this encounter Results Urine Culture (07/14/2014 11:37 AM FUEL HOUSE ATTENDANT) Patholo gist Method Time Signature Source Urine HP CONVERSION Site HP CONVERSION Urine Culture Mixed gram HP CONVERSION positive organisms. 10-50,000 cfu/mL Specimen (Source) Anatomical Collection Method Collection Time Re ceived Time Location / / Volume Laterality Urine: 07/14/2014 11:37 AM FUEL HOUSE ATTENDANT Delfina Knox MD LAB_1 Performing Organization Address City/[facility]/ZIP Code Phon e Number HP CONVERSION (ABNORMAL) Antithyroid Peroxidase (07/14/2014 11:37 AM FUEL HOUSE ATTENDANT) Patholo gist Method Time Signature Thyroid 62.4 (H) 0.0 - 9.0 HP CONVERSION Peroxidase (TPO) Antibodies Specimen Anatomical Collection Method Collection Time Receive d Time (Source) Location / / Volume Laterality Urine: 07/14/2014 11:37 07/14/2014 3:08 AM FUEL HOUSE ATTENDANT PM FUEL HOUSE ATTENDANT Narrative HP CONVERSION - 07/15/2014 1:30 PM FUEL HOUSE ATTENDANT Performed at [facility] [address] [place] [address] Delfina Knox MD LAB_1 Performing Organization Address City/[facility] Code Phon e Number HP CONVERSION LISA Screen (07/14/2014 11:37 AM FUEL HOUSE ATTENDANT) Analysis Performed At Patho logist Time Signature Anti-Nuclear Negative Negative HP CONVERSION Ab Specimen Anatomical Collection Method Collection Time Receive d Time (Source) Location / / Volume Laterality Urine: 07/14/2014 11:37 07/14/2014 3:08 AM FUEL HOUSE ATTENDANT PM FUEL HOUSE ATTENDANT Delfina Knox MD LAB_1 Performing Organization Address [facility] Code Phon e Number HP CONVERSION THYROID STIMULATING HORMONE (07/14/2014 11:37 AM FUEL HOUSE ATTENDANT) athologist Signature Thyroid 1.78 0.20 - HP CONVERSION Stimulating 4.50 Hormone Specimen (Source) Anatomical Collection Method Collection Time Re ceived Time Location / / Volume Laterality Urine: 07/14/2014 11:37 AM FUEL HOUSE ATTENDANT Delfina Knox MD LAB_1 Performing Organization Address [facility] Phon e Number HP CONVERSION (ABNORMAL) URINE MICROSCOPIC (07/14/2014 10:21 AM FUEL HOUSE ATTENDANT) athologist Signature Urine WBC 0-2 0 - 4 HP CONVERSION Urine RBC 0-2 0 - 2 HP CONVERSION Bacteria Urine Few (A) HP CONVERSION Comment: Urine culture has been ordered per reflex protocol. Epithelial Cells Moderate HP CONVERSION Urine Mucus Moderate HP CONVERSION Specimen (Source) Anatomical Collection Method Collection Time Re ceived Time Location / / Volume Laterality Urine: 07/14/2014 10:21 AM FUEL HOUSE ATTENDANT Narrative HP CONVERSION - 07/14/2014 10:31 AM FUEL HOUSE ATTENDANT Performed at [facility], [address] [place] [address] Delfina Knox MD LAB_1 Performing Organization Address [facility] Phon e Number HP CONVERSION (ABNORMAL) URINALYSIS ROUTINE, MICRO/CULTURE IF POS (07/14/2014 10:21 AM FUEL HOUSE ATTENDANT) [facility] Method Time Signature Urine Type Urine:clean HP CONVERSION cat Turbidity Hazy (A) Clear HP CONVERSION U BILI Negative Negative HP CONVERSION Blood Urine Trace (A) Negative HP CONVERSION Glucose, Negative Neg-30 HP CONVERSION Qualitative U mg/dL Ketones Negative Negative HP CONVERSION Leukocyte Negative Negative HP CONVERSION Esterase Urine Nitrite Urine Negative Negative HP CONVERSION pH Urine 5.5 5.0 - 8.0 HP CONVERSION Protein Urine Negative Neg - Trace HP CONVERSION mg/dL U Specific >=1.030 1.005 - HP CONVERSION [place] 1.030 Urobilinogen Negative Negative HP CONVERSION Urine Specimen (Source) Anatomical Collection Method Collection Time Re ceived Time Location / / Volume Laterality Urine: 07/14/2014 10:21 AM FUEL HOUSE ATTENDANT Narrative HP CONVERSION - 07/14/2014 10:23 AM FUEL HOUSE ATTENDANT [place] [address] Delfina Knox MD LAB_1 Performing Organization Address [facility] Phon e Number HP CONVERSION Differential (07/14/2014 10:12 AM FUEL HOUSE ATTENDANT) athologist Signature Absolute 7.7 1.8 - 8.0 HP CONVERSION Neutrophils Absolute 1.4 1.1 - 4.0 HP CONVERSION Lymphocytes Absolute 0.3 0.2 - 0.8 HP CONVERSION Monocytes Absolute 0.1 0.0 - 0.5 HP CONVERSION Eosinophils Absolute 0.0 0.0 - 0.2 HP CONVERSION Basophils Specimen Anatomical Collection Method Collection Time Receive d Time (Source) Location / / Volume Laterality 07/14/2014 10:12 07/14/2014 AM FUEL HOUSE ATTENDANT 10:11 AM FUEL HOUSE ATTENDANT Narrative HP CONVERSION - 07/14/2014 10:27 AM FUEL HOUSE ATTENDANT Performed at [facility], [address] [place] [address] Delfina Knox MD LAB_1 Performing Organization Address [facility] Phon e Number HP CONVERSION BUN (07/14/2014 10:12 AM FUEL HOUSE ATTENDANT) athologist Signature Blood Urea 13 5 - 26 HP CONVERSION Nitrogen mg/dL Specimen (Source) Anatomical Collection Method Collection Time Re ceived Time Location / / Volume Laterality Urine: 07/14/2014 10:12 AM FUEL HOUSE ATTENDANT Narrative HP CONVERSION - 07/14/2014 10:57 AM FUEL HOUSE ATTENDANT [place] [address] Delfina Knox MD LAB_1 Performing Organization Address [facility] Phon e Number HP CONVERSION Creatinine / GFR (07/14/2014 10:12 AM FUEL HOUSE ATTENDANT) athologist Signature Creatinine 0.7 0.4 - 1.3 HP CONVERSION Serum mg/dL Est GFR >60 >60 HP CONVERSION Am Est GFR Non-Afr >60 >60 HP CONVERSION Am Comment: Normal>60, moderate decrease 30 - 59, se ronaldo decrease 15 - 29, renal failure <15 mL/min/1.73 m2 NOTE: ??Choose the eGFR result above willard ropriate for the race of the patient. Specimen (Source) Anatomical Collection Method Collection Time Re ceived Time Location / / Volume Laterality Urine: 07/14/2014 10:12 AM FUEL HOUSE ATTENDANT Narrative HP CONVERSION - 07/14/2014 10:57 AM FUEL HOUSE ATTENDANT [place] [address] Delfina Knox MD LAB_1 Performing Organization Address [facility] Phon e Number HP CONVERSION Complete Blood Count W/Diff (07/14/2014 10:12 AM FUEL HOUSE ATTENDANT) P athologist Signature White Blood Cell 9.5 3.8 - 11.0 HP CONVERSIO N Count Red Blood Cell 4.54 3.70 - HP CONVERSION Count 5.20 Hemoglobin 13.4 11.8 - HP CONVERSION 15.5 g/dL Hematocrit 40.3 35.0 - HP CONVERSION 46.0 % Mean Corpuscular 88.7 80.0 - HP CONVERSION Volume 100.0 fL RDW 12.3 11.0 - HP CONVERSION 15.0 % Platelet Count 278 140 - 450 HP CONVERSION Specimen Anatomical Collection Method Collection Time Receive d Time (Source) Location / / Volume Laterality 07/14/2014 10:12 07/14/2014 AM FUEL HOUSE ATTENDANT 10:11 AM FUEL HOUSE ATTENDANT Narrative HP CONVERSION - 07/14/2014 10:27 AM FUEL HOUSE ATTENDANT [place] [address] Delfina Knox MD LAB_1 Performing Organization Address [facility] Phon e Number HP CONVERSION AST (07/14/2014 10:12 AM FUEL HOUSE ATTENDANT) Patholo gist Method Time Signature Aspartate 22 0 - 45 HP CONVERSION Aminotransferase U/L Specimen (Source) Anatomical Collection Method Collection Time Re ceived Time Location / / Volume Laterality Urine: 07/14/2014 10:12 AM FUEL HOUSE ATTENDANT Narrative HP CONVERSION - 07/14/2014 10:57 AM FUEL HOUSE ATTENDANT [place] [address] Delfina Knox MD LAB_1 Performing Organization Address [facility]/ZIP Code Phon e Number HP CONVERSION ALT (SGPT) (07/14/2014 10:12 AM FUEL HOUSE ATTENDANT) Patholo gist Method Time Signature Alanine 17 4 - 55 HP CONVERSION Aminotransferase U/L Specimen (Source) Anatomical Collection Method Collection Time Re ceived Time Location / / Volume Laterality Urine: 07/14/2014 10:12 AM FUEL HOUSE ATTENDANT Narrative HP CONVERSION - 07/14/2014 10:57 AM FUEL HOUSE ATTENDANT Performed at [facility], [address] [place] [address] Delfina Knox MD LAB_1 Performing Organization Address City/State/ZIP Code Phon e Number HP CONVERSION documented in this encounter Visit Diagnoses Diagnosis Allergic urticaria documented in this encounter Care Teams Supervisor Incising Relationship Specialty Start Date End Date Md Homero, PCP - General 11/28/10 03/07/15 [place] [address] documented as of this encounter
--- OUTSIDE RECORDS SUMMARY | 2022-05-17 08:31 | XMS_ITS | Encounter Summary ---
:1985 Author Organization [facility] Address [address] [place] [address] Care Team Providers Name Role Phone Md YOBANI Valentin Primary Care Provider Reason for Visit Reason Comments Refill Encounter Details Date Type Department Care Team Description 10/02/2011 Refill [facility] Desire Cardenas, RN Refill [address] [place] [address] Social History Tobacco Use Types Packs/Day Years Used Date Smoking Tobacco: Never Assessed Sex Assigned at Date Recorded Not on file documented as of this encounter Plan of Treatment Upcoming Encounters Date Type Specialty Care Team Description 05/18/2022 Appointment [facility]umatology [facility]asmo Horn MD [address] [facility] [id number] (Wo rk[facility] documented as of this encounter Visit Diagnoses Not on filedocumented in this encounter Care Teams Architectural Wood Model Maker Relationship Specialty Start Date End Date Md Valentin MD PCP - General 11/28/10 03/07/15 [place] [address] documented as of this encounter
--- OUTSIDE RECORDS SUMMARY | 2022-05-17 08:31 | XMS_ITS | Encounter Summary ---
:1985 Author Organization [employer] Address [address] [place] [address] Care Team Providers Name Role Phone Md YOBANI Valentin Primary Care Provider Reason for Visit Reason Comments Appt. Work In Request Encounter Details Date Type Department Care Team Description 06/29/2014 Telephone [facility] [address] Delfina Knox Ap pt. Work In Request Dermatology [address] [facility] [address] [place] [address] [place] [address] [phone] Social History Tobacco Use Types Packs/Day Years Used Date Smoking Tobacco: Never Assessed Sex Assigned at Date Recorded Not on file documented as of this encounter Nursing Notes Linda Chapman MA - 06/29/2014 9:13 AM CST Appointment scheduled. BODY TECHNICIAN Delfina Knox MD - 06/29/2014 8:46 AM CST discussed with patient- will come in today at 12:30 for eval. please schedule Adriana Peoples RN - 06/29/2014 8:22 AM CST LAST VISIT: 06/09/14 (Amber) NEXT VISIT: 08/06/14 NAME OF CALLER: Liana NAME OF CLINICIAN: Dom Webster MESSAGE: Patient called with concerns about persistent rash. Patient states that she visited Urgent Care and they told her she should have a biopsy done. Rash is head to toe, very itchy and painful. Patient would like to know if you could work in an earlier appointment for her, today if possible. She has tried triamcinalone cream, changing laundry and soap products. Nothing helps. Thank you. PHARMACY UPDATED IN MEDS AND ORDERS:no CALL PATIENT BACK: yes CALL BACK PHONE NUMBER: [phone] MESSAGE OK: yes BODY TECHNICIAN documented in this encounter Plan of Treatment Upcoming Encounters Date Type Specialty Care Team Description 05/18/2022 Appointment [facility]umatology [facility]asmo Horn MD [address] [facility] [id number] (Wo rk) documented as of this encounter Visit Diagnoses Not on filedocumented in this encounter Care Teams Glueline Worker Relationship Specialty Start Date End Date Md Valentin MD PCP - General 11/28/10 03/07/15 [place] [address] documented as of this encounter
--- OUTSIDE RECORDS SUMMARY | 2022-05-17 08:31 | XMS_ITS | Encounter Summary ---
:1985 Author Organization [employer] Address [address] [place] [address] Care Team Providers Name Role Phone Md YOBANI Valentin Primary Care Provider Reason for Visit Reason Comments Rash Encounter Details Date Type Department Care Team Description 06/27/2014 Hospital Encounter [facility] Tram Tuttle alvarez and nonspecific Care MD Raymond skin eruption [address] [place] [address] [address] [facility] [address] [phone] [place] [address] Social History Tobacco Use Types Packs/Day Years Used Date Smoking Tobacco: Never Assessed Sex Assigned at Date Recorded Not on file documented as of this encounter Last Filed Vital Signs Vital Sign Reading Time Taken Comments Blood Pressure 144/102 06/27/2014 3:54 PM CDT Pulse 102 06/27/2014 3:54 PM CDT Temperature 36.9 ??C (98.4 ??F) 06/27/2014 3:54 PM CDT Respiratory Rate 16 06/27/2014 3:54 PM CDT Oxygen Saturation - - Inhaled Oxygen Concentration - - Weight - - Height - - Body Mass Index - - documented in this encounter Medications at Time of Discharge Medication Sig Dispensed Refills Start Date End Date cholecalciferol Take 1 tablet by 90 3 01/24/2011 (VITAMIND3) 2000 UNITS mouth daily (every tablet 24 hours). ranitidine (aka ZANTAC) Take 1 tablet by 28 tablet 0 201307/14/2014 tablet mouth 2 times daily for 14 days. ascorbic acid (VITAMINC) Take 1,000 mg by 0 08/0807/11/2021 500 MG tablet mouth daily (every 24 hours). Calcium Carbonate (CALCIUM Take by mouth. pt 0 07/11/2021 600 OR) unsure of dose Levonorgestrel-Ethinyl Take 1 tablet by 0 014 03/18/2015 Estrad (aka mouth daily (every AVIANE;ALESSE;LESSINA) 24 hours). Follow 0.1-20 MG-MCG TABS package directions. Meloxicam (aka MOBIC) Take 15 mg by mouth 0 06/2703/03/2016 tablet TABS daily (every 24 hours). Meloxicam (MOBIC) 15 MG Take 15 mg by mouth 0 08/201308/18/2016 tablet Daily. Reported on 08/18/2016 Indications: PN: sulfaSALAzine (aka Take 1,500 mg by 0 06/27/2014 03/03/2016 AZULFIDINE) tablet mouth 2 times daily. sulfaSALAzine (AZULFIDINE) Take 1,500 mg by 0 08/201303/16/2021 500 MG tablet mouth 2 times daily. triamcinolone acetonide Apply topically 2 60 g 1 06/0908/06/2014 (AKA KENALOG) 0.1 % times daily. ointment documented as of this encounter ED Notes Tram Tuttle MD - 06/28/2014 7:39 AM CST ED Provider Notes signed by Tram Tuttle MD at 07/01/14 1800 Author: Tram Tuttle MD Service: (none) Author Type: Physician Filed: 07/01/14 1800 Note Time: 06/28/14828 Status: Signed Commercial Plumber: Tram Tuttle MD (Physician) NAME: MANJIT WASHINGTON MR#: [id number] CSN: [id number] AUTHENTICATING CLINICIAN: Tram Tuttle MD CONFIRM #: [id number] LOC: [facility] PROGRESS NOTE DATE OF VISIT: 06/27/2014 : 1985 CHIEF COMPLAINT: Skin rash. HPI: Manjit is a 28-year-old lady coming with complaint of recurrent skin rash for the last 2-3 months. She has been seen twice and treated. Her last visit documented in our records was on June 09 with Dermatology. Please review that as part of this dictation. She reports the pattern has not changed, but now seems to be worse in the last few days. She was given a prednisone course. She was given antihistamines, and these did help, although the effect was transient. She does have history of juvenile rheumatoid arthritis. She also has history of melanoma. Systemic symptoms do not seem to be associatedwith this. ALLERGIES: Reviewed. MEDICATIONS: Reviewed. OBJECTIVE: VITAL SIGNS: Stable. Examination reveals irregularly shaped, erythematous areas involving much of the trunk and the extremities. Vaguely tender to touch. They are not elevated. She reports they are itchy. I did not see anypapules or pustules. This size varies from 1 cm to 3 or 4 cm. ASSESSMENT: Skin rash, cause unclear. PLAN/DISCUSSION: Allergy versus manifestation of connective tissue disease was discussed. We will run screening tests, sedimentation rate, CBC, and Lyme titer. I did get the sedimentation rate and the CBC which were within normal limits. I put her on an H2 antagonist, Zantac as a trial and asked her to keep her appointment with Dermatology on Sunday. Consider biopsy. If nonrevealing, consider rheumatology consultation. If the Lyme is positive we will call her. AKD:MEDQ C: CONFIRM #: [id number] CLEANER Tram Tuttle MD - 06/27/2014 5:14 PM CDT dict documented in this encounter Miscellaneous Notes Medication History - Cayetano Bahena MD - 06/27/2014 5:14 PM CDT INPATIENT MEDS Encounter Date: 06/27/14 ranitidine (ZANTAC) 150 mg tablet Start Date:06/27/14, End Date:07/14/14, Frequency:2 TIMES DAILY *No Administrations Recorded levonorgestrel-ethinyl estradiol (AVIANE, SALVADOR, LESSINA) 0.1-20 mg-mcg per tablet Start Date:-, End Date:03/18/15, Frequency:DAILY *No Administrations Recorded sulfaSALAzine (AZULFIDINE) 500 mg tablet Start Date:-, End Date:-, Frequency:2 TIMES DAILY *No Administrations Recorded meloxicam (MOBIC) 15 mg tablet Start Date:-, End Date:-, Frequency:DAILY *No Administrations Recorded ED AVS Snapshot - Cayetano Bahena MD - 06/27/2014 5:14 PM CDT Images from the original note were not included. [facility] [address] [place] [address] Dept: [phone] [email or web address] Manjit Washington 06/27/2014 3:54 PM Hospital Encounter Description: Female : 1985 Department: [facility] Thank you for choosing [facility] for your health care visit with No att. providers found. We are happy to care for you and provide this summary of your visit. Your primary director day care center is currently listed as Md Homero MD. HERE IS WHAT YOU NEED TO KNOW To learn how you can take steps to stay as healthy as you can be visit [email or web address] HERE IS WHAT YOU NEED TO DO Call your clinic if you develop new or worsening symptoms or if you have questions about your visit or medications. Future Appointments Provider Department Dept Phone 08/06/2014 11:00 AM Delfina Mccray MD [facility] [phone] HERE IS INFORMATION FROM TODAY'S VISIT Reason for Visit Rash Reason for Visit History Health issues considered by your clinician today Rash and nonspecific skin eruption If you had any tests, you will be notified of your abnormal results by your clinic. We Performed the Following Complete Blood Count W/Diff: Line Draw:: No Lyme Disease Screen (In-House): Line Draw:: No N/O Lab Differential Sedimentation Rate: Line Draw:: No Results Complete Blood Count W/Diff: Line Draw:: No Component Value Standard Range & Units White Blood Cell Count 6.5 3.8 - 11.0 Red Blood Cell Count 4.35 3.70 - 5.20 Hemoglobin 13.1 11.8 - 15.5 g/dL Hematocrit 38.9 35.0 - 46.0 % Mean Corpuscular Volume 89.5 80.0 - 100.0 fL RDW 12.7 11.0 - 15.0 % Platelet Count 290 140 - 450 Sedimentation Rate: Line Draw:: No Component Value Standard Range & Units Sedimentation Rate 8 0 - 20 N/O Lab Differential Component Value Standard Range & Units Absolute Neutrophils 4.4 1.8 - 8.0 Absolute Lymphocytes 1.5 1.1 - 4.0 Absolute Monocytes 0.6 0.2 - 0.8 Absolute Eosinophils 0.0 0.0 - 0.5 Absolute Basophils 0.0 0.0 - 0.2 Medications administered today None MEDICATIONS As of today's visit, these are your current medications Medication DOSAGE ascorbic acid (VITAMIN C) 500 mg tablet (Taking) Take 1,000 mg by mouth daily (every 24 hours). CALCIUM CARBONATE (CALCIUM 600 ORAL) (Taking) Take by mouth. pt unsure of dose Cholecalciferol, Vitamin D3, (VITAMIN D-3) 2,000 unit Tab Take 1 tablet by mouth daily (every 24 hours). levonorgestrel-ethinyl estradiol (AVIANE, ALESSE, LESSINA) 0.1-20 mg-mcg per tablet (Taking) Take 1tablet by mouth daily (every 24 hours). Follow package directions. meloxicam (MOBIC) 15 mg tablet (Taking) Take 15 mg by mouth daily (every 24 hours). ranitidine (ZANTAC) 150 mg tablet Take 1 tablet by mouth 2 times daily for 14 days. sulfaSALAzine (AZULFIDINE) 500 mg tablet (Taking) Take 1,500 mg by mouth 3 times daily. triamcinolone (KENALOG) 0.1 % ointment (Taking) Apply topically 2 times daily. Vital signs from your visit Your Vitals Were BP Pulse Temp(Src) Resp 144/102 102 36.9 ??C (98.5 ??F) (Oral) 16 Allergies as of 06/27/2014 Bacitracin 08/02/2010 Allergy LW Reaction: rash Metronidazole 10/15/2009 Allergy LW Reaction: Headache Other 08/24/2009 Unspecified LW Other1: -bandages--rash Immunization History Reviewed on 10/09/2011 H1N1 0.5ML 08/24/2009 HEP B 10/23/2000 Hep B Ped/adol (0-19 yrs) 05/27/2001, 11/25/2000 INFLUENZA TIV 0.5 ML (36+ MOS) 08/02/2010, 06/30/2008, 08/21/2006, 08/25/2005 PPD 04/28/2008 Refusal To Vaccinate 05/26/2008 Tdap (Boostrix) 04/27/2006 About You Date Of Sex Race Ethnicity Preferred Language 1985 Female White Non- Kyrgyz This document contains confidential information about your health and care. It is provided directlyto you for your personal, private use only. documented in this encounter Plan of Treatment Upcoming Encounters Date Type Specialty Care Team Description 05/18/2022 Appointment Rheumatology Erasmo Horn MD [address] [facility] N [id number] (Wo rk) documented as of this encounter Procedures Procedure Name Priority Date/Time Associated Diagnosis Comme nts COMPLETE BLOOD STAT 06/27/2014 4:25 PM Rash and nonspecific Results for this COUNT-W/DIFF CDT skin eruption procedure are in the results section. DIFFERENTIAL STAT 06/27/2014 4:25 PM Results f or this CDT procedure are i n the results section. LYME ANTIBODY (REFLEX STAT 06/27/2014 4:25 PM Rash and nons pecific Results for this TO LYME CONFIRMATORY CDT skin eruption proced ure are in PANEL) the results section. ESR STAT 06/27/2014 4:25 PM Rash and nonspecific R esults for this CDT skin eruption procedure are in the results section. documented in this encounter Results Differential (06/27/2014 4:25 PM CDT) P athologist Signature Absolute 4.4 1.8 - 8.0 HP CONVERSION Neutrophils Absolute 1.5 1.1 - 4.0 HP CONVERSION Lymphocytes Absolute 0.6 0.2 - 0.8 HP CONVERSION Monocytes Absolute 0.0 0.0 - 0.5 HP CONVERSION Eosinophils Absolute 0.0 0.0 - 0.2 HP CONVERSION Basophils Specimen Anatomical Collection Method Collection Time Receive d Time (Source) Location / / Volume Laterality 06/27/2014 4:25 PM 4 4:25 CDT PM CDT Narrative HP CONVERSION - 06/27/2014 4:31 PM CDT Performed at [facility], [address] [place] [address] Tram Tuttle MD LAB_1 Performing Organization Address [facility] Phon e Number HP CONVERSION ESR (06/27/2014 4:25 PM CDT) [facility] gist Method Time Signature Sedimentation Rate 8 0 - 20 HP CONVERSI ON Specimen Anatomical Collection Method Collection Time Receive d Time (Source) Location / / Volume Laterality 06/27/2014 4:25 PM 4 4:25 CDT PM CDT Narrative HP CONVERSION - 06/27/2014 4:57 PM CDT Performed at [facility], [address] [place] [address] Tram Tuttle MD LAB_1 Performing Organization Address City/[facility] Code Phon e Number HP CONVERSION Lyme Antibody, and Western Blot(If Needed) (06/27/2014 4:25 PM CDT) athologist Signature Lyme Screen Negative Negative HP CONVERSION Comment: This is screening test. ??If results are equivocal or positive, serum will be sent to [facility] ref erence lab for western blot confirmatory testing. Specimen Anatomical Collection Method Collection Time Receive d Time (Source) Location / / Volume Laterality 06/27/2014 4:25 PM 4 8:19 CDT PM CDT Tram Tuttle MD LAB_1 Performing Organization Address City/[facility] Code Phon e Number HP CONVERSION Complete Blood Count W/Diff (06/27/2014 4:25 PM CDT) athologist Signature White Blood Cell 6.5 3.8 - 11.0 HP CONVERSIO N Count Red Blood Cell 4.35 3.70 - HP CONVERSION Count 5.20 Hemoglobin 13.1 11.8 - HP CONVERSION 15.5 g/dL Hematocrit 38.9 35.0 - HP CONVERSION 46.0 % Mean Corpuscular 89.5 80.0 - HP CONVERSION Volume 100.0 fL RDW 12.7 11.0 - HP CONVERSION 15.0 % Platelet Count 290 140 - 450 HP CONVERSION Specimen Anatomical Collection Method Collection Time Receive d Time (Source) Location / / Volume Laterality 06/27/2014 4:25 PM 4 4:25 CDT PM CDT Narrative HP CONVERSION - 06/27/2014 4:31 PM CDT Performed at [facility], [address] [facility], [place] [address] Tram Tuttle MD LAB_1 Performing Organization Address City/State/ZIP Code Phon e Number HP CONVERSION documented in this encounter Visit Diagnoses Diagnosis Rash and nonspecific skin eruption Rash and other nonspecific skin eruption Triage Assessment Note - Mayur Perez RN - 06/27/2014 3:51 PM CDT Pt c/o rash over entire body, onset x 2 months. Pt has been treated for the rash twice, patient states rash became significantly worse last night. documented in this encounter Care Teams Research Instrumentation Technician Relationship Specialty Start Date End Date Md Valentin MD PCP - General 11/28/10 03/07/15 [place] [address] documented as of this encounter
--- OUTSIDE RECORDS SUMMARY | 2022-05-17 08:31 | XMS_ITS | Encounter Summary ---
:1985 Author Organization [employer] [facility] Address [address] [place] [address] Care Team Providers Name Role Phone Md YOBANI Valentin Primary Care Provider Encounter Details Date Type Department Care Team Description 08/08/2011 [facility] [address] [place] [address] Social History Tobacco Use Types Packs/Day Years Used Date Smoking Tobacco: Never Assessed Sex Assigned at Date Recorded Not on file documented as of this encounter Plan of Treatment Upcoming Encounters Date Type Specialty Care Team Description 05/18/2022 Appointment Rheumatology Erasmo Horn MD [address] [facility] [address] [id number] (Wo rk) documented as of this encounter Visit Diagnoses Not on filedocumented in this encounter Care Teams Auto Striper Relationship Specialty Start Date End Date Md Valentin MD PCP - General 11/28/10 03/07/15 [place] [address] documented as of this encounter
--- OUTSIDE RECORDS SUMMARY | 2022-05-17 08:31 | XMS_ITS | Encounter Summary ---
:1985 Author Organization [employer] Address [address] [place] [address] Care Team Providers Name Role Phone Md YOBANI Valentin Primary Care Provider Encounter Details Date Type Department Care Team Description 08/06/2014 Lab Visit [facility] Encounter for long-term [address] (current) [place] [address] medications [phone] Social History Tobacco Use Types Packs/Day Years Used Date Smoking Tobacco: Never Assessed Sex Assigned at Date Recorded Not on file documented as of this encounter Plan of Treatment Upcoming Encounters Date Type Specialty Care Team Description 05/18/2022 Appointment Rheumatology Erasmo Horn MD [address] [facility] [place] [address] (Wo rk) documented as of this encounter Procedures Procedure Name Priority Date/Time Associated Diagnosis Comme nts CREATININE / GFR Routine 08/06/2014 11:51 Encounter for Result s for this AM MEAT COUNTER WORKER long-term (current) procedur e are in use of other the results medications section. COMPLETE BLOOD Routine 08/06/2014 11:51 Encounter for Results for this COUNT-W/DIFF AM MEAT COUNTER WORKER long-term (current) procedur e are in use of other the results medications section. DIFFERENTIAL Routine 08/06/2014 11:51 Results for this AM MEAT COUNTER WORKER procedure are i n the results section. ALT (SGPT) Routine 08/06/2014 11:51 Encounter for Results fo r this AM MEAT COUNTER WORKER long-term (current) procedur e are in use of other the results medications section. AST Routine 08/06/2014 11:51 Encounter for Results fo r this AM MEAT COUNTER WORKER long-term (current) procedur e are in use of other the results medications section. LD TOTAL (LDH) Routine 08/06/2014 11:51 Encounter for Results for this AM MEAT COUNTER WORKER long-term (current) procedur e are in use of other the results medications section. BILIRUBIN, TOTAL Routine 08/06/2014 11:51 Encounter for Result s for this AM MEAT COUNTER WORKER long-term (current) procedur e are in use of other the results medications section. ALKALINE PHOSPHATASE, Routine 08/06/2014 11:51 Encounter for R esults for this TOTAL AM MEAT COUNTER WORKER long-term (current) procedur e are in use of other the results medications section. ALBUMIN Routine 08/06/2014 11:51 Encounter for Results fo r this AM MEAT COUNTER WORKER long-term (current) procedur e are in use of other the results medications section. CALL LIST QUESTIONS Routine 08/06/2014 11:47 Encounter for Res ults for this AM MEAT COUNTER WORKER long-term (current) procedur e are in use of other the results medications section. documented in this encounter Results Differential (08/06/2014 11:51 AM MEAT COUNTER WORKER) P athologist Signature Absolute 4.0 1.8 - 8.0 HP CONVERSION Neutrophils k/cmm Absolute 1.4 1.1 - 4.0 HP CONVERSION Lymphocytes k/cmm Absolute 0.2 0.2 - 0.8 HP CONVERSION Monocytes k/cmm Absolute 0.0 0.0 - 0.5 HP CONVERSION Eosinophils k/cmm Absolute 0.0 0.0 - 0.2 HP CONVERSION Basophils k/cmm Specimen Anatomical Collection Method Collection Time Receive d Time (Source) Location / / Volume Laterality 08/06/2014 11:51 08/06/2014 AM MEAT COUNTER WORKER 11:51 AM MEAT COUNTER WORKER Narrative HP CONVERSION - 08/06/2014 11:57 AM MEAT COUNTER WORKER Performed at [facility], [address] [id number] Mayela Bateman MD LAB_1 Performing Organization Address City/State/ZIP Code Phon e Number HP CONVERSION AST (08/06/2014 11:51 AM MEAT COUNTER WORKER) [facility] gist Method Time Signature Aspartate 20 0 - 45 HP CONVERSION Aminotransferase U/L Specimen Anatomical Collection Method Collection Time Receive d Time (Source) Location / / Volume Laterality 08/06/2014 11:51 08/06/2014 AM MEAT COUNTER WORKER 11:51 AM MEAT COUNTER WORKER Narrative HP CONVERSION - 08/06/2014 3:28 PM MEAT COUNTER WORKER Performed at [facility], [address] [place] [address] Don Barnard MD LAB_1 Performing Organization Address [facility] Phon e Number HP CONVERSION Creatinine / GFR (08/06/2014 11:51 AM MEAT COUNTER WORKER) athologist Signature Creatinine 0.7 0.4 - 1.3 HP CONVERSION Serum mg/dL Est GFR >60 >60 HP CONVERSION Am mL/min/1.7 3m2 Est GFR Non-Afr >60 >60 HP CONVERSION Am mL/min/1.7 3m2 Comment: Normal>60, moderate decrease 30 - 59, se ronaldo decrease 15 - 29, renal failure <15 mL/min/1.73 m2 NOTE: ??Choose the eGFR result above willard ropriate for the race of the patient. Specimen Anatomical Collection Method Collection Time Receive d Time (Source) Location / / Volume Laterality 08/06/2014 11:51 08/06/2014 AM MEAT COUNTER WORKER 11:51 AM MEAT COUNTER WORKER Narrative HP CONVERSION - 08/06/2014 3:28 PM MEAT COUNTER WORKER Performed at [facility], [address] [place] [address] Don Barnard MD LAB_1 Performing Organization Address [facility] Phon e Number HP CONVERSION ALT (SGPT) (08/06/2014 11:51 AM MEAT COUNTER WORKER) [facility] Method Time Signature Alanine 18 4 - 55 HP CONVERSION Aminotransferase U/L Specimen Anatomical Collection Method Collection Time Receive d Time (Source) Location / / Volume Laterality 08/06/2014 11:51 08/06/2014 AM MEAT COUNTER WORKER 11:51 AM MEAT COUNTER WORKER Narrative HP CONVERSION - 08/06/2014 3:28 PM MEAT COUNTER WORKER Performed at [facility], [address] [place] [address] Don Barnard MD LAB_1 Performing Organization Address [facility] Phon e Number HP CONVERSION LD Total (LDH) (08/06/2014 11:51 AM MEAT COUNTER WORKER) Patholo gist Method Time Signature Lactic Acid 150 90 - 180 HP CONVERSION Dehydrogenase U/L Specimen Anatomical Collection Method Collection Time Receive d Time (Source) Location / / Volume Laterality 08/06/2014 11:51 08/06/2014 AM MEAT COUNTER WORKER 11:51 AM MEAT COUNTER WORKER Narrative HP CONVERSION - 08/06/2014 3:28 PM MEAT COUNTER WORKER Performed at [facility], [address] [place] [address] Don Barnard MD LAB_1 Performing Organization Address [facility] Phon e Number HP CONVERSION Bilirubin, Total (08/06/2014 11:51 AM MEAT COUNTER WORKER) athologist Signature Bilirubin Total 0.4 0.2 - 1.2 HP CONVERSION mg/dL Specimen Anatomical Collection Method Collection Time Receive d Time (Source) Location / / Volume Laterality 08/06/2014 11:51 08/06/2014 AM MEAT COUNTER WORKER 11:51 AM MEAT COUNTER WORKER Narrative HP CONVERSION - 08/06/2014 3:28 PM MEAT COUNTER WORKER Performed at [facility], [address] [place] [address] .faxed to [phone], 08/06/2014,15:30, by PASCUAL Don Barnard MD LAB_1 Performing Organization Address [facility] Phon e Number HP CONVERSION Alkaline Phosphatase, Total (08/06/2014 11:51 AM MEAT COUNTER WORKER) athologist Signature Alk Phos 59 25 - 135 U/L HP CONVERSION Specimen Anatomical Collection Method Collection Time Receive d Time (Source) Location / / Volume Laterality 08/06/2014 11:51 08/06/2014 AM MEAT COUNTER WORKER 11:51 AM MEAT COUNTER WORKER Narrative HP CONVERSION - 08/06/2014 3:28 PM MEAT COUNTER WORKER Performed at [facility], [address] [place] [address] Don Barnard MD LAB_1 Performing Organization Address City/[facility] Code Phon e Number HP CONVERSION Albumin (08/06/2014 11:51 AM MEAT COUNTER WORKER) athologist Signature Albumin 4.3 3.4 - 5.0 HP CONVERSION g/dL Specimen Anatomical Collection Method Collection Time Receive d Time (Source) Location / / Volume Laterality 08/06/2014 11:51 08/06/2014 AM MEAT COUNTER WORKER 11:51 AM MEAT COUNTER WORKER Narrative HP CONVERSION - 08/06/2014 3:28 PM MEAT COUNTER WORKER Performed at [facility], [address] [place] [address] Don Barnard MD LAB_1 Performing Organization Address [facility] Phon e Number HP CONVERSION Complete Blood Count W/Diff (08/06/2014 11:51 AM MEAT COUNTER WORKER) athologist Signature White Blood Cell 5.6 3.8 - 11.0 HP CONVERSIO N Count k/cmm Red Blood Cell 4.75 3.70 - HP CONVERSION Count 5.20 m/cmm Hemoglobin 13.2 11.8 - HP CONVERSION 15.5 g/dL Hematocrit 39.1 35.0 - HP CONVERSION 46.0 % Mean Corpuscular 82.4 80.0 - HP CONVERSION Volume 100.0 fL RDW 12.2 11.0 - HP CONVERSION 15.0 % Platelet Count 269 140 - 450 HP CONVERSION k/cmm Specimen Anatomical Collection Method Collection Time Receive d Time (Source) Location / / Volume Laterality 08/06/2014 11:51 08/06/2014 AM MEAT COUNTER WORKER 11:51 AM MEAT COUNTER WORKER Narrative HP CONVERSION - 08/06/2014 11:57 AM MEAT COUNTER WORKER Performed at [facility], [address] [place] [address] Don Barnard MD LAB_1 Performing Organization Address [facility] Phon e Number HP CONVERSION CALL LIST QUESTIONS (08/06/2014 11:47 AM MEAT COUNTER WORKER) athologist Signature Call Back Done HP CONVERSION Documented Specimen (Source) Anatomical Collection Method Collection Time Re ceived Time Location / / Volume Laterality 08/06/2014 11:47 AM MEAT COUNTER WORKER Narrative HP CONVERSION - 08/06/2014 11:47 AM MEAT COUNTER WORKER Performed at [facility], [address] [place] [address] Don Barnard MD LAB_1 Performing Organization Address [facility] Phon e Number HP CONVERSION documented in this encounter Visit Diagnoses Diagnosis Encounter for long-term (current) use of other medications documented in this encounter Care Teams [place] Or Nursery Transplanter Relationship Specialty Start Date End Date Md Valentin MD PCP - General 11/28/10 03/07/15 [place] [address] documented as of this encounter
--- OUTSIDE RECORDS SUMMARY | 2022-05-17 08:31 | XMS_ITS | Encounter Summary ---
:1985 Author Organization [employer] Address [address] [place] [address] Care Team Providers Name Role Phone Md YOBANI Valentin Primary Care Provider Reason for Visit Reason Comments Annual Exam ERRONEOUS ENTRY Encounter Details Date Type Department Care Team Description 10/09/2011 Office Visit Desire Cox, ERRONEOUS EN TRY Obstetrics/Gynecolog y RN (Primary Dx) [address] [place] [address] Social History Tobacco Use Types Packs/Day Years Used Date Smoking Tobacco: Never Assessed Sex Assigned at Date Recorded Not on file documented as of this encounter Last Filed Vital Signs Vital Sign Reading Time Taken Comments Blood Pressure 108/62 10/09/2011 3:24 PM FUEL AGENT Pulse - - Temperature - - Respiratory Rate - - Oxygen Saturation - - Inhaled Oxygen Concentration - - Weight 70.6 kg (155 lb 9.6 oz) 10/09/2011 3:24 PM FUEL AGENT Height 157.5 cm (5' 2) 10/09/2011 3:24 PM FUEL AGENT Body Mass Index 28.46 10/09/2011 3:24 PM FUEL AGENT documented in this encounter Patient Instructions Patient InstructionsTsLoni victor LPN - 10/09/2011 3:29 PM CST Thank you for enrolling in [employer]. Please follow the instructions below to securely access your online medical record. [facility] allows you to send messages to your doctor, view your test results, renewyour prescriptions, schedule appointments, and more. How Do I Sign Up? 1. In your Internet browser, go to: [email or web address] 2. Click on the Sign Up Now link in the Sign In box. You will see the New Member Sign Up page. 3. Enter your [employer] Access Code exactly as it appears below. You will not need to use this code after you???ve completed the sign-up process. If you do not sign up before the expiration date, you must request a new code. [employer] Access Code: [email or web address] Expires: 11/08/11 03:29 PM 4. Enter your Social Security Number ([id number]) and Date of (mm/dd/yyyy) as indicated and click Submit. You will be taken to the next sign- up page. 5. Create a [employer] ID. This will be your [employer] login ID and cannot be changed, so think of one that is secure and easy to remember. 6. Create a [employer] password. You can change your password at any time. 7. Enter your Password Reset Question and Answer. This can be used at a later time if you forget your password. 8. Enter your e-mail address. You will receive e-mail notification when new information is availablein [employer]. 9. Click Sign Up. You can now view your medical record. Additional Information If you have questions, you can call [phone] to talk to our [employer] staff. Remember, [employer] is NOT to be used for urgent needs. For medical emergencies, dial 911. AGENT documented in this encounter Progress Notes Desire Cardenas, MAINTENANCE SERVICE TECHNICIAN, SECONDARY SCHOOL REGISTRAR - 10/12/2011 7:37 AM CST This encounter was created in error - please disregard. AGENT documented in this encounter Plan of Treatment Upcoming Encounters Date Type Specialty Care Team Description 05/18/2022 Appointment Rheumatology Erasmo Horn MD [address] [place] [address] [address] (Wo rk) documented as of this encounter Visit Diagnoses Diagnosis ERRONEOUS ENTRY - Primary documented in this encounter Care Teams Director Workforce Management Relationship Specialty Start Date End Date Md Valentin MD PCP - General 11/28/10 03/07/15 [facility] [place] [address] documented as of this encounter
--- OUTSIDE RECORDS SUMMARY | 2022-05-17 08:31 | XMS_ITS | Encounter Summary ---
:1985 Author Organization [employer] Address [address] [place] [address] Care Team Providers Name Role Phone Md YOBANI Valentin Primary Care Provider Reason for Visit Reason Comments Skin Check Encounter Details Date Type Department Care Team Description 02/04/2015 Office Visit Delfina Orta, Neoplasm of unspecified nature of bone, soft tissue, and skin (Primary Dx); Dermatology Benign neoplasm of skin of lower limb, i ncluding hip, right; [address] [address] [facility] Screening for malignant neoplasm of the skin; [place] [address] [place], [place] Personal history of malignan t melanoma of skin; [phone] [id number] Atypical nevus of back [phone] (Wo rk) Social History Tobacco Use Types Packs/Day Years Used Date Smoking Tobacco: Never Assessed Sex Assigned at Date Recorded Not on file documented as of this encounter Patient Instructions Patient InstructionsIwona Suarez RN - 02/04/2015 9:34 AM CDT 1. Clothing and shade are the best for sun protection. 2. Use sunscreen with zinc in it. DIRECT PHONE NUMBER: MADDY CANALES ISAAC [phone]. FEEL FREE TO CALL WITH ANY QUESTIONS [...] BLOCK BY CLINIQUE OR AQUASPORT AVAILABLE AT [facility]. VITAMIN D-3 RECOMMENDATIONS: - TAKE VITAMIN D [...] the site. Please call the clinic at [phone] if you experience any of these symptoms. When should my sutures be removed? Please schedule your nurse appointment at the front end specialist for the suture removal within 10-14 days. [...] within 2 weeks, please call us at [phone]. documented in this encounter Progress Notes Delfina Knox MD - 02/04/2015 9:36 AM CDT Progress Notes signed by Delfina Mccray MD at 02/17/15725 Author: Delfina Mccray MD Service: (none) Author Type: Physician Filed: 02/17/15725 Note Time: 02/04/151525 Status: Signed Entry Level Chemist: Delfina Mccray MD (Physician) NAME: LIANA DOHERTY MR#: [id number] CSN: [id number] AUTHENTICATING CLINICIAN: Delfina Knox MD CONFIRM #: [id number] LOC: 527 CLINIC PROGRESS NOTE DATE OF VISIT: 02/04/2015 : 1985 Liana is a delightful 29-year-old here for a full-body exam. She had melanoma in 2008 on the left breast 0.39 mm in depth, and probable melanoma 0.18 mm left anterior lower leg in 2010. She has had severely dysplastic nevus left forehead. She has a mole on the 2nd toe on the right foot that I have a photograph of; and 1 on the right calf that is round, slightly elevated, back of the left kind of popliteal fossa/calf area that is unchanged. She reports she has a few pink moles on the left back her fiancee noticed and she said her other melanomas have been pink so they make him nervous. They are getting in May. They will do their honeymoon in the winter. The wedding is large with 5 attendants on each side. She has large family. She otherwise is doing well. Her allergies and hives have cleared off milk and off almonds. OBJECTIVE: Full-body exam today including scalp, face, neck, chest, back, abdomen, buttocks, groin, arms, legs,hands, feet, nails, perirectal, and pubic area. She is strawberry blonde, fair skin. Really the examis much easier. Her scars are well healed. There is 1 little brown spot off to the left of the scar on the left leg, but it is not in contingent with it. The mole on the 2nd toe is a little bit larger,but looks fine. She does have verruca on the bottom of the feet, but they are not bothering her and she is not interested in coming in monthly as she lives in [place]. She has a mole on the right neck I photographed. It is like 2 moles sitting [id number], brown, 1 that is junctional inferiorly lavonne compound slightly elevated superiorly and not worrisome. The mole on the back of the left leg is medium brown, slightly elevated, very round and not worrisome. She does have a few nevi on the face. No lymphadenopathy found in the neck, supraclavicular, infraclavicular, axillary, nor groin region. Left upper back near the neck 2 small light brown, junctional nevi. Three small pink nevi that are flaton the left back, the largest being about 6 mm in size under where her bra strap goes across the left mid back, slightly more lateral than medial. Because of her concern and it is hard for her to follow we elect to take the largest of the pink moles off to make sure it looked fine under the microscope. Informed consent was obtained. She is allergic to adhesive, but can handle the surgical tape. It was anesthetized left mid back after informed consent with 1% lidocaine with epi at 1:100,000, sterilely prepped and draped. A 6 mm plug biopsy removed and two 5-0 Ethilon stitches placed. Wound care instructions given verbally. Of course, is this is a typical mole then we would have her come back and dothe other 2 smaller pink moles on the left back, but I do think it will be okay. I will call her in a week with the biopsy diagnosis. Stitches will be removed by her. I will see her back after her wedding and she will bring pictures. 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 COMMENT: This nevus has architectural features associated with dysplastic nevi and severe cytologic atypia. Melan-A and MITF highlight irregularly and focally confluent nests of melanocytes. Several individual melanocytes are large with prominent nuclei and abundant cytoplasm. The lesion extends to the peripheral biopsy margins, and EXCISION IS ADVISED with a margin of uninvolved skin to ensure complete removal. This case was reviewed with Drs. Ashleigh Machado and Nash Omalley who concur with the diagnosis. pt informed- will re excise on 02/17/15 documented in this encounter Plan of Treatment Upcoming Encounters Date Type Specialty Care Team Description 05/18/2022 Appointment Rheumatology Erasmo Horn MD [address] [facility] [id number] (Wo rk) documented as of this encounter Procedures Procedure Name Priority Date/Time Associated Diagnosis Comme nts SURGICAL PATH, [place] Routine 02/04/2015 7:00 AM Re sults for this [facility] CDT procedure are i n the results section. documented in this encounter Results Pathology Report (02/04/2015 7:00 AM CDT) Component Value Ref Test Analysis Performed At [facility] gist Range Method Time Signature Path: Performed at [facility] [place] [address] HP CONVERSION ? FINAL DERMATOPATHOLOGY REPORT Pathology #: [id number] ? Date Obtained: 02/04/2015 ?Date Received: 02/04/2015 DIAGNOSIS: ? Skin, left mid back lateral, punch biopsy: ?- Junctional dysplastic melanocytic nevus with zach re atypia, ?extending to peripheral biopsy margin. ?COMMENT: ??This nevus has architectural features assoc iated with ?dysplastic nevi and severe cytologic atypia. Melan-A a nd MITF ?highlight irregularly and focally confluent nests of m elanocytes. ?Several individual melanocytes are large with prominen t nuclei and ?abundant cytoplasm. ??The lesion extends to the periph eral biopsy ?margins, and EXCISION IS ADVISED with a margin of unin volved skin ?to ensure complete removal. This case was reviewed wit didi Sotelo ?Carter and Nash Omalley who concur with the diagno sis. ?MEAGAN LARIOS MD ? (electronic signatur e) ? 02/10/2015 ??12:4 2 CLINICAL NOTES: ? R/O CPD vs DN ORGAN/TISSUE SITE ? Left mid back lateral GROSS DESCRIPTION: ? Received in a formalin-filled container labeled with the patient's ? name is a 6 x 6 x 8 mm punch biopsy of skin. ??The sp ecimen is ? marked with green ink, bisected and submitted entirel y in one ? cassette. ? rb ?BLOJE MICROSCOPIC DESCRIPTION: ? Microscopic evaluation performed. ? End of Report Specimen Anatomical Collection Method Collection Time Receive d Time (Source) Location / / Volume Laterality SKIN PUNCH BIOPSY 02/04/2015 7:00 AM 01/25 7:00 SPECIMEN / Unknown CDT AM CDT Delfina Knox MD LAB_1 Performing Organization Address City/State/ZIP Code Phon e Number HP CONVERSION documented in this encounter Visit Diagnoses Diagnosis Neoplasm of unspecified nature of bone, soft tissue, and skin ([facility]) - Primary Neoplasm of unspecified nature of bone, soft tissue, and skin Benign neoplasm of skin of lower limb, i ncluding hip, right Screening for malignant neoplasm of the skin Personal history of malignant melanoma o f skin Atypical nevus of back Benign neoplasm of skin of trunk, except scrotum documented in this encounter Care Teams Pickler Helper Relationship Specialty Start Date End Date Md Valentin MD PCP - General 11/28/10 03/07/15 [place] [address] documented as of this encounter
--- OUTSIDE RECORDS SUMMARY | 2022-05-17 08:31 | XMS_ITS | Encounter Summary ---
:1985 Author Organization [facility] Address [address] [place] [address] Care Team Providers Name Role Phone Md YOBANI Valentin Primary Care Provider Encounter Details Date Type Department Care Team Description 08/08/2011 Lab Visit [facility] Unspecified vitamin D defici ency; [id number] Personal history [place] [address] Social History Tobacco Use Types Packs/Day Years Used Date Smoking Tobacco: Never Assessed Sex Assigned at Date Recorded Not on file documented as of this encounter Plan of Treatment Upcoming Encounters Date Type Specialty Care Team Description 05/18/2022 Appointment Rheumatology Erasmo Horn MD [address] [facility] [address] [address] (Wo rk) documented as of this encounter Procedures Procedure Name Priority Date/Time Associated Diagnosis Comme nts VITAMIN D 25-HYDROXY, Routine 08/08/2011 10:23 Unspecified vit lott Results for this TOTAL AM [facility]OC[facility] D deficiency (HRC) procedure are in the results section. WBC & DIFFERENTIAL Routine 08/08/2011 10:23 Personal history o f Results for this AM CROC[facility] malignant melanoma procedure are in of skin the results section. ALT (SGPT) Routine 08/08/2011 10:23 Personal history of Resu lts for this AM [facility] malignant melanoma procedure are in of skin the results section. AST Routine 08/08/2011 10:23 Personal history of Resu lts for this AM [facility]HE[facility] malignant melanoma procedure are in of skin the results section. LD TOTAL (LDH) Routine 08/08/2011 10:23 Personal history of Re sults for this AM CR[facility]HE[facility] malignant melanoma procedure are in of skin the results section. CALCIUM Routine 08/08/2011 10:23 Unspecified vitamin Resu lts for this AM [facility] D deficiency (HRC) procedure are in the results section. VENIPUNCTURE (MARYBETH) Routine 08/08/2011 Results for this procedure are i n the results section. documented in this encounter Results WBC & Differential (08/08/2011 10:23 AM CROCHETER HAND) athologist Signature White Blood Cell 4.9 3.8 - 11.0 HP CONVERSIO N Count k/cmm Absolute 3.1 1.8 - 8.0 HP CONVERSION Neutrophils k/cmm Absolute 1.5 1.1 - 4.0 HP CONVERSION Lymphocytes k/cmm Absolute 0.2 0.2 - 0.8 HP CONVERSION Monocytes k/cmm Absolute 0.1 0.0 - 0.5 HP CONVERSION Eosinophils k/cmm Absolute 0.0 0.0 - 0.2 HP CONVERSION Basophils k/cmm Specimen Anatomical Collection Method Collection Time Receive d Time (Source) Location / / Volume Laterality 08/08/2011 10:23 08/08/2011 AM CROCHETER HAND 10:23 AM CROCHETER HAND Narrative HP CONVERSION - 08/08/2011 10:35 AM CROCHETER HAND Performed at [facility], [address] [place] [address] Delfina Knox MD LAB_1 Performing Organization Address [facility] Phon e Number HP CONVERSION LD Total (LDH) (08/08/2011 10:23 AM CROCHETER HAND) Patholo gist Method Time Signature Lactic Acid 135 90 - 180 HP CONVERSION Dehydrogenase U/L Specimen Anatomical Collection Method Collection Time Receive d Time (Source) Location / / Volume Laterality 08/08/2011 10:23 08/08/2011 AM CROCHETER HAND 10:23 AM CROCHETER HAND Narrative HP CONVERSION - 08/08/2011 11:10 AM CROCHETER HAND Performed at [facility], [address] [place] [address] Delfina Knox MD LAB_1 Performing Organization Address City/[facility] Phon e Number HP CONVERSION ALT (SGPT) (08/08/2011 10:23 AM CROCHETER HAND) [facility] gist Method Time Signature Alanine 16 4 - 55 HP CONVERSION Aminotransferase U/L Specimen Anatomical Collection Method Collection Time Receive d Time (Source) Location / / Volume Laterality 08/08/2011 10:23 08/08/2011 AM CROCHETER HAND 10:23 AM CROCHETER HAND Narrative HP CONVERSION - 08/08/2011 11:10 AM CROCHETER HAND Performed at [facility], [address] [place] [address] Delfina Knox MD LAB_1 Performing Organization Address [facility] Phon e Number HP CONVERSION AST (08/08/2011 10:23 AM CROCHETER HAND) [facility] Method Time Signature Aspartate 15 0 - 45 HP CONVERSION Aminotransferase U/L Specimen Anatomical Collection Method Collection Time Receive d Time (Source) Location / / Volume Laterality 08/08/2011 10:23 08/08/2011 AM CROCHETER HAND 10:23 AM CROCHETER HAND Narrative HP CONVERSION - 08/08/2011 11:10 AM CROCHETER HAND Performed at [facility], [address] [place] [address] Delfina Knox MD LAB_1 Performing Organization Address [facility] Phon e Number HP CONVERSION Calcium (08/08/2011 10:23 AM CROCHETER HAND) athologist Signature Calcium 9.8 8.5 - 10.5 HP CONVERSION mg/dL Specimen Anatomical Collection Method Collection Time Receive d Time (Source) Location / / Volume Laterality 08/08/2011 10:23 08/08/2011 AM CROCHETER HAND 10:23 AM CROCHETER HAND Narrative HP CONVERSION - 08/08/2011 11:10 AM CROCHETER HAND Performed at [facility], [address] [place] [address] Delfina Knox MD LAB_1 Performing Organization Address [facility] Phon e Number HP CONVERSION Vitamin D 25-Hydroxy, Total (08/08/2011 10:23 AM CROCHETER HAND) athologist Signature Vitamin D 25 Oh 48 20 - 80 HP CONVERSION ng/mL Comment: Deficiency = <20 Adequate ??= 20-29 Preferred = 30-50 Uncertain safety = 51-80 High = >80 Specimen Anatomical Collection Method Collection Time Receive d Time (Source) Location / / Volume Laterality 08/08/2011 10:23 08/08/2011 3:01 AM CROCHETER HAND PM CROCHETER HAND Delfina Knox MD LAB_1 Performing Organization Address City/[facility]/ZIP [facility] Phon e Number HP CONVERSION VENIPUNCTURE (MARYBETH) (08/08/2011) athologist Signature Venipuncture Done HP CONVERSION Specimen (Source) Anatomical Location Collection Method / Collectio n Time Received Time / Laterality Volume 08/08/2011 08/08/2011 Narrative HP CONVERSION - 08/08/2011 11:27 AM CROCHETER HAND Performed at [facility], [address] [place] [address] Delfina Knox MD LAB_1 Performing Organization Address [facility] Phon e Number HP CONVERSION documented in this encounter Visit Diagnoses Diagnosis Unspecified vitamin D deficiency Personal history of malignant melanoma o f skin documented in this encounter Care Teams Perfume Compounder Relationship Specialty Start Date End Date Md Valentin MD PCP - General 11/28/10 03/07/15 [place] [address] documented as of this encounter
--- OUTSIDE RECORDS SUMMARY | 2022-05-17 08:31 | XMS_ITS | Encounter Summary ---
:1985 Author Organization [facility] Address [address] [place] [address] Care Team Providers Name Role Phone Md YOBANI Valentin Primary Care Provider Reason for Visit Reason Comments HEADACHE,MIGRAINE VISION, LOSS OF Encounter Details Date Type Department Care Team Description 11/19/2014 Office Visit [facility] Liana Tovar, Migrai ne without aura and without status migrainosus, not intractable (Primary Dx); Medicine Chronic daily headache; [address] [place] [address] [place], [place] [phone] Social History Tobacco Use Types Packs/Day Years Used Date Smoking Tobacco: Never Assessed Sex Assigned at Date Recorded Not on file documented as of this encounter Last Filed Vital Signs Vital Sign Reading Time Taken Comments Blood Pressure 130/72 11/19/2014 4:23 PM CDT Pulse 84 11/19/2014 4:23 PM CDT Temperature - - Respiratory Rate - - Oxygen Saturation - - Inhaled Oxygen Concentration - - Weight 85.4 kg (188 lb 4 oz) 11/19/2014 4:23 PM CDT Height - - Body Mass Index 34.43 07/17/2014 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 female here today for ?migraines Many headaches, mild ones nearly daily. Also having bad headaches 3-4 times per month, they last several days. 11/13/14 she lost all vision in her right eye which lasted 1.5 hours. Her vision is normal now. It was a blind spot in the center of her vision that was flashing that gradually enlarged until the entire eye was involved and the eye was tearing on that side. The vision loss started the day after the migraine started. That has never happened in the past. The severe headaches are usually on theright side. No aura. Nausea, no vomiting. Sensitive to light, not sound. When they come on she triesto lay down. These have been for years. What brings her in is the vision loss. She has never tried migraine meds. She has had a head CT (she thinks) that was normal. No weakness or numbness in her extremities. No speech difficulty or balance concerns. No new medications. She takes meloxicam daily for her RA this has been for the past year, headaches are not worse in the past year, it actually seems better since starting the meloxicam. The chronic less severe headaches that are nearly daily R. also typically unilateral, sometimes left, sometimes right. There are generally no associated symptoms withthem. Past medical history, social history, family history, and medications were reviewed and updated as appropriate. OBJECTIVE: BP 130/72 Pulse 84 Wt 188 lb 4 oz (85.39 kg) Gen: NAD, alert HEENT: normocephalic, atraumatic, hearing grossly normal Heart: RRR, no murmur Lungs: CTAB, Good respiratory efforts. neuro: Neuro exam: health care marketing specialist 2-12: PERRLA, Visual hernandez full , EOMI without nystagmus, Face symmetric, Face sensation normalon light touch, Hearing grossly intact, Tongue midline, Gag reflex present, palate elevate symmetrically, Sternocleidomastoid and trapezius strength 5/5 bilaterally Motor: normal 5/5 strength in upper extremity and lower extremity bilaterally Tone: normal throughout DTRs: 1 + and symmetric at biceps,patella, Gait: narrow-based. Psy: well groomed, Pleasant affect. ASSESSMENT/PLAN: Liana was seen today for migraine and loss of vision. Diagnoses and associated orders for this visit: Migraine without aura and without status migrainosus, not intractable Chronic daily headache Vision loss of right eye The severe headaches are certainly consistent with migraine. She will use Imitrex and Zofran for those, discussed appropriate use and potential side effects. The daily less severe headaches may also represent migraines given that they are unilateral. I think it would be worth trying a migraine prevention medication to see if this decreases the frequency. Given that her blood pressure is mildly elevated today we will try metoprolol. Discussed potential side effects. She will see me back in a month todiscuss how this is working. In terms of the vision loss, it really seems like it was most likely anaura although a little atypical. She does not have any other symptoms of multiple sclerosis. Her vision is normal now. Given the vision symptoms are a little atypical for aura I did discuss this with beverley who agrees with the plan. - metoprolol succinate (TOPROL-XL) 25 mg 24 hr tablet; Take 1 tablet by mouth daily (every 24 hours). take before bed. If tolerating well but headaches not decreased in 2 week increase to 50mg. - SUMAtriptan (IMITREX) 25 mg tablet; Take 1 tablet by mouth as needed for Migraine. May repeat after 2 hours if needed. Max 8 tabs/24 hours. Max 9 days/month - ondansetron (ZOFRAN-ODT) 4 mg disintegrating tablet; Take 1 tablet by mouth every 8 hours as needed for Nausea or Vomiting. Dissolve tablet on tongue Liana Tovar MD 4:29 PM 11/19/2014 Please note that parts of this document were created with voice recognition dictation. Typoraphical errors may result. documented in this encounter Plan of Treatment Upcoming Encounters Date Type Specialty Care Team Description 05/18/2022 Appointment Rheumatology Erasmo Horn MD [address] [facility] N [address] (Wo rk) documented as of this encounter Visit Diagnoses Diagnosis Migraine without aura and without status migrainosus, not intractable - Primary Migraine without aura, without mention o f intractable migraine without mention of status migrainosus Chronic daily headache Headache Vision loss of right eye Unqualified visual loss, one eye documented in this encounter Care Teams Mold Operator Relationship Specialty Start Date End Date Md Valentin MD PCP - General 11/28/10 03/07/15 [place] [address] documented as of this encounter
--- OUTSIDE RECORDS SUMMARY | 2022-05-17 08:31 | XMS_ITS | Encounter Summary ---
:1985 Author Organization [facility] Address [address] [place] [address] Care Team Providers Name Role Phone Md YOBANI Valentin Primary Care Provider Reason for Visit Reason Comments Skin Check Encounter Details Date Type Department Care Team Description 02/08/2012 Office Visit Delfina Orta, Dysplast ic nevi; Dermatology MD Personal history of malignant melanoma o f skin; [address] Skin [place] [address] [place], [place] [phone] (Wo rk) Social History Tobacco Use Types Packs/Day Years Used Date Smoking Tobacco: Never Assessed Sex Assigned at Date Recorded Not on file documented as of this encounter Progress Notes Delfina Knox MD - 02/08/2012 10:31 AM CDT This office note has been dictated. Delfina Knox MD - 02/08/2012 10:04 AM CDT Progress Notes signed by Delfina Mccray MD at 02/15/12 1008 Author: Delfina Mccray MD Service: (none) Author Type: Physician Filed: 02/15/12 1008 Note Time: 02/08/12 1004 Status: Signed Dementia Program Director: Delfina Mccray MD (Physician) NAME: MANJIT DOHERTY MR#: [id number] CSN: [id number] AUTHENTICATING CLINICIAN: Delfina Knox MD CONFIRM #: [id number] LOC: 527 CLINIC PROGRESS NOTE DATE OF VISIT: 02/08/2012 : 1985 Manjit is 26-year-old. History of melanoma on her left breast, 0.39 mm in depth; Dr. Crowder removed it in April 2009. Then, she had a probable melanoma 0.18 mm on the left anterior lower leg Dr. Crowder removed in 2010. 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 Biopsy last time on the left calf showed an irritated epidermal nevus. She is on 1999 of D, and in July 2011 her D was 48, calcium 9.8. We have been doing chest x-ray and blood work. We are now 1 and 3 years from her probable melanomas. They were thin. We talked today that recommendations have changed a bit, and with no symptomatology we can probably discontinue chest x-ray and blood work, but I will let her decide, and we will discuss it in July when it would be due. She does have 2 nevi that are irritated, one on the back of the neck gets caught with combing and brushes and clothing, and then one on middle midback lies right over her bra strap where the hook is, and it really gets irritated. Full-body exam, including scalp, face, neck, chest, back, abdomen, buttocks, groin, arms, legs, hands, feet, nails, perirectal and pubic area. A fair- skinned strawberry blond with irritated intradermal nevus just right of midline of the posterior neck and the irritated compound nevus sitting right underneath the bra strap, middle midback. It is larger, maybe 7 mm in size. It does have brown pigmentation around the periphery that will remain when we shave this off, and we will just photograph on followup as to how it heals, so we can prove it does not change. She has a compound nevus that has a little pigmentation at the inferior border on the right neck that looks fine; it is 2- tone but not worrisome. 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 The scar on the left thigh is well healed. It has 1 little blood vessel next to it and 1 small junctional nevus at the superolateral pole that is not worrisome. She has a few nevi here and there on the arms and legs, mostly compound. She does have 1 scar on the left Achilles tendon that is a little re-pigmented, but it has remained stable like that, and I believe that was a compound nevus. No lymphadenopathy found in the neck, supraclavicular, infraclavicular, nor axillary area. ASSESSMENT: History of melanoma with good skin exam today but irritated compound nevi. PLAN: Those were shaved off, sent for histopathology. The neck was about 3 mm, the back about 7. She tolerated it well. A little cautery used for hemostasis on the back. She is allergic to Band-Aids, so I used surgical dressing. I will call her in a week. Her significant other's name is Dmitriy. bx- right posterior neck and middle mid back- irritated compound nevi VLV:MEDQ C: CONFIRM #: [id number] documented in this encounter Plan of Treatment Upcoming Encounters Date Type Specialty Care Team Description 05/18/2022 Appointment Rheumatology Erasmo Horn MD [address] [facility] [place] [address] [address] (Wo rk) documented as of this encounter Procedures Procedure Name Priority Date/Time Associated Diagnosis Comme nts SURGICAL PATHBYRON Routine 02/08/2012 7:00 AM Abby leon for this MAINE CDT procedure are i n the results section. documented in this encounter Results Pathology Report (02/08/2012 7:00 AM CDT) Component Value Ref Test Analysis Performed At [facility] gist Range Method Time Signature Path: ? Final DERMATOPATHOLOGY REPO RT HP CONVERSION Pathology #: [id number] ? Date Obtained: 02/08/2012 ?Date Received: 02/08/2012 DIAGNOSIS: ? A) Skin, right posterior neck, shave biopsy: ?- Irritated compound nevus, superficial portion. (S ee comment) ?Comment: Deep margin is involved. ? B) Skin, middle mid back, shave biopsy: ? - Consistent with irritated compound nevus, superf icial portion. ? (See comment) ? Comment: Deeper sections were examined. Although m ild junctional ? atypia is seen, it is felt to be related to irr itation. Deep ? and lateral margins are involved. Correlation w ith the ? remaining lesion and appropriate clinical follo w-up is ? recommended. If this is a portion of a larger a typical lesion ? or if pigment recurs, complete removal is advis ed. This case ? was reviewed at the dermatopathology consensus conference. ?ISSAC RAMIREZ N ? (electronic signatur e) ? 02/14/2012 ??16:4 7 CLINICAL NOTES: ? Irritated ID nevus ORGAN/TISSUE SITE ? Right posterior neck/Middle mid back GROSS DESCRIPTION: ?A) Received in a formalin-filled container labeled with the ? patient's name is a 4 x 3 x 1 mm shave biopsy o f skin. The ? specimen is bisected and submitted entirely in one cassette. ?B) Received in a formalin-filled container labeled with the ? patient's name is a 6 x 6 x 2 mm shave biopsy o f skin. The ? specimen is bisected and submitted entirely in one cassette. ?WEIDA MICROSCOPIC DESCRIPTION: ?A) Sections examined show a shave of skin. There ar e nests of ? nevomelanocytes at the dermoepidermal junction with extension ? into the dermis. Nevus cells show maturation. S ignificant ? cytologic atypia is not identified. There is serrano perficial ? fibrosis and melanophages. Deep margin is invol jules. ?B) Sections examined show a shave of skin. There ar e nests of ? nevomelanocytes at the dermoepidermal junction with extension ? into the dermis. Some bridging of the junctiona l component is ? seen. Nevus cells show maturation with descen t. Dermal mitotic ? activity is not identified. Deeper sections prem w similar ? histologic features. ??Deep and lateral margins are involved. ? End of Report Specimen Anatomical Collection Method Collection Time Receive d Time (Source) Location / / Volume Laterality SHAVE BIOPSY OF 02/08/2012 7:00 AM 2011 7:00 SKIN / Unknown CDT AM CDT SHAVE BIOPSY OF 02/08/2012 7:00 AM 2011 7:00 SKIN / Unknown CDT AM CDT Delfina Knox MD LAB_1 Performing Organization Address City/State/ZIP Code Phon e Number HP CONVERSION documented in this encounter Visit Diagnoses Diagnosis Dysplastic nevi Benign neoplasm of skin, site unspecifie d Personal history of malignant melanoma o f skin Skin exam for malignant neoplasm Screening for malignant neoplasm of the skin documented in this encounter Care Teams Manager Strategic Relationship Specialty Start Date End Date Md Valentin MD PCP - General 11/28/10 03/07/15 [place] [address] documented as of this encounter
--- OUTSIDE RECORDS SUMMARY | 2022-05-17 08:31 | XMS_ITS | Encounter Summary ---
:1985 Author Organization [facility] Address [address] [place] [address] Care Team Providers Name Role Phone Liana Tovar MD Primary Care Provider Reason for Visit Reason Comments HEADACHE,MIGRAINE Encounter Details Date Type Department Care Team Description 03/18/2015 Office Visit [facility] Liana Tovar, Migrai ne without status migrainosus, not intractable, unspecified migraine type (Primary Dx); Medicine Unspecified contraceptive management [id number] [place] [address] [place] [address] [place], [place] [phone] Social History Tobacco Use Types Packs/Day Years Used Date Smoking Tobacco: Never Assessed Sex Assigned at Date Recorded Not on file documented as of this encounter Last Filed Vital Signs Vital Sign Reading Time Taken Comments Blood Pressure 112/74 03/18/2015 2:49 PM CDT Pulse 94 03/18/2015 2:49 PM CDT Temperature - - Respiratory Rate - - Oxygen Saturation - - Inhaled Oxygen Concentration - - Weight 86.4 kg (190 lb 6 oz) 03/18/2015 2:49 PM CDT Height - - Body Mass Index 34.82 07/17/2014 10:02 AM FEATHER MIXER documented in this encounter Progress Notes Liana Tovar MD - 03/18/2015 5:01 PM CDT CLINIC VISIT NOTE SUBJECTIVE: Patient is a 29 y.o. female here today for Migraines f/u. Taking Metoprolol daily, was helping but not as much as she hoped so she increased to 2 tablets which has helped (50mg). Migraines worsen when she has her period. She describes it as unbearable and essentially being unable to get out of bed for a week. She has not tried continuous cycle pills, she does use OCPs currently. She has used the imitrex and zoftan twice over the past couple of months which did help. She reserves that only for the severe headaches. Not planning soon. No new symptoms associated with her migraines. No further episodes of vision loss. Past medical history, social history, family history, and medications were reviewed and updated as appropriate. OBJECTIVE: BP 112/74 mmHg Pulse 94 Wt 190 lb 6 oz (86.354 kg) Gen: NAD, alert HEENT: normocephalic, atraumatic, hearing grossly normal Psy: well groomed, Pleasant affect. ASSESSMENT/PLAN: Liana was seen today for migraine. Diagnoses and associated orders for this visit: Migraine without status migrainosus, not intractable, unspecified migraine type Contraceptive Management NOS Her migraines have improved however, they still bother her most during her period. We'll change her to continuous cycle control. She will continue using Imitrex as usual, encourage her to use this more liberally as she only used it twice in the past couple of months and it did work well. I did give her the option of increasing her metoprolol to 100 mg. Her blood pressure is in the mid normal range today so increasing it should to be okay however, warned her that if she does do this and is feeling dizzy, she should check her blood pressure periodically. She will call me if she does increase her metoprolol dose so that I can send a new prescription. She would like to see how the change in her oral contraceptive pills works first. (IMITREX) 25 mg tablet; Take 1 tablet by mouth as needed for Migraine. May repeat after 2 hours if needed. Max 8 tabs/24 hours. Max 9 days/month - levonorgestrel-ethinyl estradiol (AVIANE, ALESSE, LESSINA) 0.1-20 mg-mcg per tablet; Take 1 tabletby mouth daily (every 24 hours). take continuously for 3 months at a time. - metoprolol succinate (TOPROL-XL) 50 mg 24 hr tablet; Take 1 tablet by mouth daily (every 24 hours). take before bed Liana Tovar MD 3:04 PM 03/18/2015 Please note that parts of this document were created with voice recognition dictation. Typoraphical errors may result. documented in this encounter Plan of Treatment Upcoming Encounters Date Type Specialty Care Team Description 05/18/2022 Appointment Rheumatology Erasmo Horn MD [address] [facility] [place] [address] (Wo rk) documented as of this encounter Visit Diagnoses Diagnosis Migraine without status migrainosus, not intractable, unspecified migraine type - Primary Unspecified contraceptive management documented in this encounter Care Teams Theater Teacher Relationship Specialty Start Date End Date Liana Tovar MD PCP - General 03/08/[address] [place] [address] documented as of this encounter
--- OUTSIDE RECORDS SUMMARY | 2022-05-17 08:31 | XMS_ITS | Encounter Summary ---
:1985 Author Organization [facility] Address [address] [place] [address] Care Team Providers Name Role Phone Md YOBANI Valentin Primary Care Provider Reason for Visit Reason Comments Neck Pain Encounter Details Date Type Department Care Team Description 09/30/2014 Hospital Encounter [facility] Fall due to ice or snow; Care S, DO Cervical strain, acute [address] [address] [phone] Social History Tobacco Use Types Packs/Day Years Used Date Smoking Tobacco: Never Assessed Sex Assigned at Date Recorded Not on file documented as of this encounter Last Filed Vital Signs Vital Sign Reading Time Taken Comments Blood Pressure 148/80 09/30/2014 5:03 PM TRANSFER SPECIALIST Pulse 99 09/30/2014 4:25 PM TRANSFER SPECIALIST Temperature 36.8 ??C (98.2 ??F) 09/30/2014 4:25 PM TRANSFER SPECIALIST Respiratory Rate 18 09/30/2014 4:25 PM TRANSFER SPECIALIST Oxygen Saturation 100% 09/30/2014 4:25 PM TRANSFER SPECIALIST Inhaled Oxygen Concentration - - Weight - - Height - - Body Mass Index - - documented in this encounter Medications at Time of Discharge Medication Sig Dispensed Refills Start Date End Date cholecalciferol Take 1 tablet by 90 3 01/24/2011 (VITAMIND3) 2000 UNITS mouth daily (every tablet 24 hours). HYDROcodone-acetaminophe 1-2 Q5-6hrs prn 24 tablet 0 201411/19/2014 n (aka NORCO) 5-325 MG pain, no more than 8 tablet TABSIndications: in 24hrs Cervical strain, acute Indications: PAIN methocarbamol (aka Take 1 tablet by 30 tablet 0 09/30/2014 11/19/2014 ROBAXIN) mouth 3 times daily. tabletIndications: for muscle spasm Cervical strain, acute montelukast (AKA Take 1 tablet by 30 tablet 5 07/17/2014 SINGULAIR) 10 MG tablet mouth every evening. Do not fill. Keep on file. Indications: ASTHMA EXACERBATION ranitidine (AKA ZANTAC) Take 1 tablet by 180 tablet 3 201311/19/2014 150 MG tablet mouth 2 times daily. Do not fill. Keep on file. ascorbic acid (VITAMINC) Take 1,000 mg by 0 08/0807/11/2021 500 MG tablet mouth daily (every 24 hours). Calcium Carbonate Take by mouth. pt 0 08/08/2011 07/11/2021 (CALCIUM 600 OR) unsure of dose Levonorgestrel-Ethinyl Take [...] documented as of this encounter ED Notes Abilio Melgar DO - 09/30/2014 6:44 PM CST ED Provider Notes signed by Abilio Melgar DO at 10/04/14 [id number] Author: Abilio Melgar DO Service: (none) Author Type: Physician Filed: 10/04/14 1817 Note Time: 09/30/142012 Status: Signed Locker Room Clerk: Abilio Melgar DO (Physician) NAME: MANJIT DOHERTY MR#: [id number] CSN: [id number] AUTHENTICATING CLINICIAN: Abilio Melgar DO CONFIRM #: [id number] LOC: 520 URGENT CARE PROGRESS NOTE DATE OF VISIT: 09/30/2014 : 1985 CHIEF COMPLAINT: This patient complains of posterior neck pain. HISTORY OF CHIEF COMPLAINT: She slipped on the snow and ice in her driveway last night, at 9 p.m. She hit the back of her head, but had no loss of consciousness. She denies headache. She complains of posterior neck pain, going into the trapezius muscles. She states it just feels tight and stiff. She denies any numbness, tingling, weakness, or extremities. She has no history of cervical disk disease or neck fracture. She denies upper or lower back pain, hip, pelvic pain. ALLERGIES: Reviewed on [employer]. MEDICINES: Reviewed on [employer]. PAST MEDICAL HISTORY: Reviewed on [employer]. SOCIAL HISTORY: Reviewed on [employer]. IMMUNIZATIONS: Reviewed on [facility]. PHYSICAL EXAM: VITAL SIGNS: Her blood pressure was 161/106, and we rechecked it and it was 148/80. Her pulse 99, respirations 18, temperature 98.2, pulse oximeter 100% on room air. She rates her pain as 5/10 to 7/10,described as a constant soreness. PHYSICAL EXAM: She is awake, alert, nontoxic, well hydrated, afebrile. She is pleasant, has excellent mentation. SKIN: Warm and dry without rash, petechiae, or purpura. HEENT: Head is normocephalic. No palpable lumps, bumps, or bruises. Negative Dawkins's sign, raccoon sign. The eyes are PERRLA. Cornea, conjunctivae, sclerae are clear. Lids are normal. The nose is without congestion or rhinitis. The throat is without erythema or exudates. Mucous membranes are moist and pink. Ears: TMs, canals clear and normal. No hemotympanum. NECK: Examination of her neck shows no adenopathy. Trachea is midline. No masses. LUNGS: Clear to auscultation. HEART: Regular rate and rhythm without murmur. MUSCULOSKELETAL: Examination of her cervical spine reveals tenderness along the paravertebral muscles, and the trapezius muscles as well as the shoulder portions of the trapezius muscle. No midline bony tenderness. Shoulders were nontender to palpation. Thoracic spine was nontender to palpation. DIAGNOSTICS: X-ray of the cervical spine shows no fractures. ASSESSMENT: 1. Slip and fall on the ice. 2. Cervical strain. TREATMENT/CLINICAL COURSE/MEDICAL DECISION MAKING: I placed her on Robaxin 750 mg, 30 tablets, 1 t.i.d. for muscle relaxation, Cass 5 mg 24 tablets 1,1-1/2 or 2 tablets every 5-6 hours p.r.n. pain. I told her to apply moist heat to the neck 2 to 3 times daily. Recheck with her doctor in 10 days if not improved, sooner if worse or any concerns. She was discharged to home in stable condition. LSS:MEDQ C: CONFIRM #: [id number] SFER SPECIALIST documented in this encounter Miscellaneous Notes Medication History - Cayetano Bahena MD - 09/30/2014 5:50 PM CST INPATIENT MEDS Encounter Date: 09/30/14 methocarbamol (ROBAXIN) 750 mg tablet Start Date:09/30/14, End Date:11/19/14, Frequency:3 TIMES DAILY *No Administrations Recorded HYDROcodone-acetaminophen (NORCO) 5-325 mg per tablet Start Date:09/30/14, End Date:11/19/14, Frequency:- *No Administrations Recorded SFER SPECIALIST documented in this encounter Plan of Treatment Upcoming Encounters Date Type Specialty Care Team Description 05/18/2022 Appointment Rheumatology Erasmo Horn MD [address] [place] [id number] (Wo rk) documented as of this encounter Procedures Procedure Name Priority Date/Time Associated Diagnosis Comme nts XR CERVICAL SPINE 3 Routine 09/30/2014 5:32 PM Fall due to ice or Results for this VIEWS TRANSFER SPECIALIST snow procedure are i n the results section. documented in this encounter Results XR Cervical Spine 3 Views (09/30/2014 5:32 PM TRANSFER SPECIALIST) Anatomical Region Laterality Modality Spine, C-Spine, Neck Other Specimen (Source) Anatomical Location Collection Method / Collectio n Time Received Time / Laterality Volume Narrative 09/30/2014 5:37 PM TRANSFER SPECIALIST COMPARISON: ??None. FINDINGS: ??No fracture or subluxation o f the cervical vertebral bodies is identified. ??Vertebral disk space height and alignment appear normal. ??No prevertebral soft tissue swelling is seen. Procedure Note Demetrio Trimble MD - 02/13/2016Forma tting of this note might be different from the original. COMPARISON: None. FINDINGS: No fracture or subluxation of the cervical vertebral bodies is identified. Vertebral disk space height and alignment appear normal. No prevertebral soft tissue swelling is seen. Abilio S Talia DO RAD GD documented in this encounter Visit Diagnoses Diagnosis Fall due to ice or snow Fall from other slipping, tripping, or s tumbling Cervical strain, acute Sprain of neck Triage Assessment Note - Tavia Lux RN - 09/30/2014 4:23 PM CST pt slipped on the ice last night and fell flat while taking her dog for a walk. She c/o shoulder pain, neck pain and some head pain since then. documented in this encounter Care Teams Law Office Assistant Relationship Specialty Start Date End Date Md Valentin MD PCP - General 11/28/10 03/07/15 [place] [address] documented as of this encounter
--- OUTSIDE RECORDS SUMMARY | 2022-05-17 08:31 | XMS_ITS | Encounter Summary ---
:1985 Author [facility] Address [address] [place] [address] Care Team Providers Name Role Phone Md YOBANI Valentin Primary Care Provider Reason for Visit Reason Comments Skin Check Encounter Details Date Type Department Care Team Description 08/08/2011 Office Visit Delfina Orta, Unspecif ied vitamin D deficiency; Dermatology MD Personal history of malignant melanoma o f skin; [address] [place] [address] [place], [place] [phone] (Wo rk) Social History Tobacco Use Types Packs/Day Years Used Date Smoking Tobacco: Never Assessed Sex Assigned at Date Recorded Not on file documented as of this encounter Progress Notes Delfina Knox MD - 08/08/2011 10:54 AM CST This office note has been dictated. Delfina Knox MD - 08/08/2011 10:01 AM CST Progress Notes signed by Delfina Mccray MD at 08/14/11918 Author: Delfina Mccray MD Service: (none) Author Type: Physician Filed: 08/14/11918 Note Time: 08/08/11 100 Status: Signed Molded Goods Spot Picker: Delfina Mccray MD (Physician) NAME: MANJIT DOHERTY MR#: [id number] CSN: [id number] AUTHENTICATING CLINICIAN: Delfina Knox MD CONFIRM #: [id number] LOC: 527 CLINIC PROGRESS NOTE DATE OF VISIT: 08/08/2011 : 1985 Manjit is a 25-year-old with history of left breast melanoma, 0.39 mm in depth, in April 2009, as well as a probable melanoma 0.18 mm in depth, of the left anterior lower leg that Dr. Crowder reexcised within the last year. She has had severely dysplastic nevus, right upper forehead, reexcised by Christina Hernadez and a second dysplastic nevus on the left forehead removed by Christina as well. She is due for chest x-ray and blood work. Vitamin D, she is on 2000 a day. Will recheck that today with her other melanoma labs. Clenia and Differin make her face red and irritated. Had her discontinue Differin and just use Clenia and see how that works. Left antecubital fossa mole was removed recently, last appointment. It came back as a normal compound nevus. She has a new calf mole on the left posterior calf that we just followed but it is the only mole remaining really that has any question. She feels that it looks like the one that was on the left anterior lower leg that proved to be a probable melanoma, so we elected to take that off today. Full body exam including scalp, face, neck, chest, back, abdomen, buttocks, groin, arms, legs, hands, feet and nails, perirectal and pubic area: A telangiectasia on the right side of the nose. It is not going to go away. Offered cat whisker, but she declined. The left calf mole is a little more orange than her other nevi. It has a little more juiciness, a little scale on the surface, about 3 mm in size. Removed completely with a 6 mm plug. Two 5-0 Ethilon stitches placed. Wound care instructions given. She has one mole on the right neck that is a little hypopigmented in the middle. It has a little brown around the border, compound, not worrisome. Her scars are healed well. No lymphadenopathy found in the supraclavicular, infraclavicular, axillary and groin region. I will see her back in 6 months. I will call her in a week with biopsy diagnosis. Stitches out in 2 weeks. bx- irritated compound nevus=left lateral calf VLV:MEDQ C: CONFIRM #: [id number] DS CONTROL TECHNICIAN documented in this encounter Plan of Treatment Upcoming Encounters Date Type Specialty Care Team Description 05/18/2022 Appointment Rheumatology Erasmo Horn MD [address] [facility] [address] [id number] (Wo rk) documented as of this encounter Visit Diagnoses Diagnosis Unspecified vitamin D deficiency Personal history of malignant melanoma o f skin Dysplastic nevi Benign neoplasm of skin, site unspecifie d documented in this encounter Care Teams Care Assistant Relationship Specialty Start Date End Date Md Homero, PCP - General 11/28/10 03/07/15 [place], [place] [address] documented as of this encounter
--- OUTSIDE RECORDS SUMMARY | 2022-05-17 08:31 | XMS_ITS | Encounter Summary ---
:1985 Author Organization [employer] Address [address] [place] [address] Care Team Providers Name Role Phone Md YOBANI Valentin Primary Care Provider Reason for Visit Reason Comments Skin Check Encounter Details Date Type Department Care Team Description 08/06/2014 Office Visit Delfina Orta, Neoplasm of uncertain behavior of skin (Primary Dx); D[facility]ology [place]; [address] [address] [place] Urticaria, unspecified; [place] [address] [place], [place] Personal history of malignan t melanoma of skin; [phone] Encounter for long-term (current) use of other medications; [phone] (Wo rk) Screening for malignant neoplasm of the skin Social History Tobacco Use Types Packs/Day Years Used Date Smoking Tobacco: Never Assessed Sex Assigned at Date Recorded Not on file documented as of this encounter Patient Instructions Patient InstructionsMaddy Chapman MA - 08/06/2014 11:25 AM CST DIRECT PHONE NUMBER: MADDY [phone]. FEEL FREE TO CALL WITH ANY QUESTIONS [...] BLOCK BY CLINIQUE OR AQUASPORT AVAILABLE AT [facility] [employer]. VITAMIN D-3 RECOMMENDATIONS: - TAKE VITAMIN D [...] FOR YOUR MUSCLES, BONES AND BRAIN HEALTH. RED SKIN FLARES ON FACE: * JOURNAL - SEE IF YOU CAN CORRELATE ANY FOODS, STRESSORS IN YOUR LIFE, THINGS THAT YOU ARE THINKINGOF. * COLD COMPRESSES WILL HELP HIVES PLAN: * RECOMMEND YOU STAY ON ALL THE MEDICATIONS THAT YOU ARE TAKING FOR YOUR HIVES UNTIL YOUR HIVES HAVECLEARED AND THEN FOR 1 MONTH LONGER. * THEN DISCONTINUE 1 MEDICATION AT A TIME PER MONTH. FIRST DISCONTINUE RANITIDINE, THEN SINGULAIR, THEN ZYRTEC. AFTER YOU HAVE BEEN CLEAR FOR SEVERAL MONTHS THEN YOU CAN CHALLENGE YOURSELF BY TRYING ONE PRODUCTAT A TIME PER WEEK. EXAMPLE: GOATS MILK, GOATS CHEESE ECT. YOU CAN HAVE COCONUT MILK OR RICE MILK. LAB: *YOUR LAB RESULTS WILL BE MAILED TO YOU INCLUDING DR. URBANO'S RECOMMENDATIONS. DRY SKIN: TRY NOT TO TAKE HOT SHOWERS BUT INSTEAD WARM WATER SHOWERS. LIMIT SOAP USE. PAT SKIN DRY & IMMEDIATELY APPLY MOISTURIZER. RECOMMENDED LOTIONS: *LOTIONS THAT CONTAIN CERAMIDES. FOR EXAMPLE, CERA VE LOTION, EUCERIN PROFESSIONAL REPAIR, CUREL LOTION. *BEST TO APPLY THESE RIGHT AFTER A SHOWER OR BATH IN ADDITION TO YOUR DAILY USE Thank you for choosing Dermatology at [facility]! We welcome your feedback. Comment cards are located in our lobby. For questions, please call and choose one of the following options: - for appointments and scheduling, press 1 - to speak with a nurse about a medical question from 7:30 am to 5 pm, press 2 - after hours emergencies, follow the instructions to be transferred to the fire battalion chief provider For medication refills, please contact your pharmacy. For questions regarding billing, please contact Patient Financial Services at . Please consider enrolling in [employer]. Please follow the instructions below to securely access your online medical record. [employer] allows you to send messages to your doctor, view your test results, renew your prescriptions, schedule appointments, and more. How Do I Sign Up? 1. In your Internet browser, go to: [email or web address] 2. Click on the Enter Activation Code link under the New User? section. You will see the New Member Sign Up page. 3. Enter your [employer] Activation Code exactly as it appears below. You will not need to use this code after you???ve completed the sign-up process. If you do not sign up before the expiration date, youmust request a new code. [employer] Activation Code: [email or web address] Expires: 09/05/2014 11:19 AM 4. Enter the last four digits of your Social Security Number ([id number]) and Date of (mm/dd/yyyy) as indicated and click Next. You will be taken to the next sign-up page. 5. Create a Clouli ID. This will be your [employer]ouli login ID and cannot be changed, so think of one that is secure and easy to remember. 6. Create a [employer]li password. You can change your password at any time. 7. Enter your Security Question and Answer. This can be used at a later time if you forget your password. Click Next. 8. Enter your e-mail address. You will receive e-mail notification when new information is availablein [employer]li. 9. Click Sign In. You can now view your medical record. Additional Information If you have questions, you can call [phone] to talk to our [employer] staff. Remember, [employer] is NOT to be used for urgent needs. For medical emergencies, dial 911. CAL LABORATORY ASSISTANT documented in this encounter Progress Notes Delfina Knox MD - 08/06/2014 11:38 AM CST Progress Notes signed by Delfina Urbano MD at 08/07/14726 Author: Delfina Urbano MD Service: (none) Author Type: Physician Filed: 08/07/14726 Note Time: 08/06/141840 Status: Signed Chicken And Fish Cleaner: Delfina Urbano MD (Physician) NAME: MANJIT DOHERTY MR#: [id number] CSN: [id number] AUTHENTICATING CLINICIAN: Delfina Knox MD CONFIRM #: [id number] LOC: 527 CLINIC PROGRESS NOTE DATE OF VISIT: 08/06/2014 : 1985 Manjit is a delightful 28-year-old, here for history of hives. Actually did a biopsy to rule out a vasculitis. She saw Dr. Piedra and had prick test. Found out she was allergic to almonds and milk. She has been avoiding that. Also has been on Zyrtec 10 mg t.i.d., ranitidine 150 mg b.i.d., and Singulair or montelukast 10 mg daily. Did not need Xolair. She is off milk and off almonds and she is much, much, much better. Sometimes gets a little bit of a breakthrough, but not much at all. In the face, she does report for years she really flushes and blushes when her face gets super hot and is not related to anything she is doing or thinking of. She also has a history of melanoma, left breast, 0.39 mm in d epApril 2009. Dr. Crowder excised. She has had probable melanoma, 0.18 mm in size, left anterior lower leg Dr. Crowder removed in 2010, and a severely dysplastic nevus, left forehead, Christina Covarrubiasxcised about that same time. Vitamin D in 2010 was only 48, calcium 9.8. She has not been taking itand it has not been run for a while. I would like to do that. She has rheumatoid arthritis. I believe she is off the sulfasalazine and meloxicam, and I do not know about the control pill at this point. She does not know how to wean off these medications or what to do next, but would prefer not to go back to her allergy if she does not need be. She does have elevated TPO antibodies that are just somewhat elevated. EXAMINATION: Her face is a little pink and flushed, not severe. She is strawberry blonde. She has no high. She has an excoriated area on the right cheek that is a little telangiectatic, but I still think will heal fine. No hives are seen, very few nevi. 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 Offered to remove it, but I am comfortable just photographing and following, and she is as well. She has 1 other mole, I think it is on the right calf area, similar to the one on the toe that is medium-brown, elevated, round, and looks congenital compound. I think we can safely follow. Otherwise, her scars are well healed. I think I failed to do lymph node exam. We will do that on followup. I do not see anything worrisome with her scars. No hives, and the few small moles she has remaining look good to me. ASSESSMENT: Hives, milk and almond allergy, flushing, maybe a little flushing rosacea, and dysplastic nevi. PLAN: Went over what to be watching for. Photograph of the toe was taken. Talked about staying on all the medications tell she gets no breakthrough and then she could slowly wean off. I guess I would wean off ranitidine 1st then maybe Singulair then maybe Zyrtec. When she is off medication, if she is staying clear, I would then wait a week or 2, maybe even up to a month, and could re-challenge cheese, but not milk itself. I will see her back in 6 months. Full-body exam and lymph node exam at that time. She is to call with questions or concerns or any problems. VLV:MEDQ C: CONFIRM #: [id number] CAL LABORATORY ASSISTANT documented in this encounter Plan of Treatment Upcoming Encounters Date Type Specialty Care Team Description 05/18/2022 Appointment Rheumatology Erasmo Horn MD [address] [place] [address] (Wo rk) documented as of this encounter Visit Diagnoses Diagnosis Neoplasm of uncertain behavior of skin - Primary [place] Urticaria, unspecified Personal history of malignant melanoma o f skin Encounter for long-term (current) use of other medications Screening for malignant neoplasm of the skin documented in this encounter Care Teams Regional Sales Representative Relationship Specialty Start Date End Date Md Homero, PCP - General 11/28/10 03/07/15 [place] [address] documented as of this encounter
--- OUTSIDE RECORDS SUMMARY | 2022-05-17 08:31 | XMS_ITS | Encounter Summary ---
:1985 Author Organization [employer] Address [address] [place] [address] Care Team Providers Name Role Phone Md YOBANI Valentin Primary Care Provider Encounter Details Date Type Department Care Team Description 08/06/2014 Lab Visit [facility] Encounter for long-term [address] (current) [place] [address] medications [phone] Social History Tobacco Use Types Packs/Day Years Used Date Smoking Tobacco: Never Assessed Sex Assigned at Date Recorded Not on file documented as of this encounter Plan of Treatment Upcoming Encounters Date Type Specialty Care Team Description 05/18/2022 Appointment [facility]asmo Horn [facility] [address] [facility] [place] [address] (Wo rk) documented as of this encounter Procedures Procedure Name Priority Date/Time Associated Diagnosis Comme nts VITAMIN D Routine 08/06/2014 11:51 AM Encounter for Results for this 25-HYDROXY, TOTAL LICENSED VOCATIONAL NURSE long-term (current) pro cedure are in use of other the results medications section. CALCIUM Routine 08/06/2014 11:51 AM Encounter for Results for this LICENSED VOCATIONAL NURSE long-term (current) procedur e are in use of other the results medications section. documented in this encounter Results Calcium (08/06/2014 11:51 AM LICENSED VOCATIONAL NURSE) P athologist Signature Calcium 9.4 8.5 - 10.5 HP CONVERSION mg/dL Specimen Anatomical Collection Method Collection Time Receive d Time (Source) Location / / Volume Laterality 08/06/2014 11:51 08/06/2014 AM LICENSED VOCATIONAL NURSE 11:51 AM LICENSED VOCATIONAL NURSE Narrative HP CONVERSION - 08/06/2014 3:27 PM LICENSED VOCATIONAL NURSE Performed at [facility], [address] [place] [address] Delfina Knox MD LAB_1 Performing Organization Address City/[facility] Phon e Number HP CONVERSION Vitamin D 25-Hydroxy, Total (08/06/2014 11:51 AM LICENSED VOCATIONAL NURSE) athologist Signature Vitamin D 25 Oh 22 20 - 80 HP CONVERSION ng/mL Comment: Deficiency = <20 Adequate ??= 20-29 Preferred = 30-50 Uncertain safety = 51-80 High = >80 Specimen Anatomical Collection Method Collection Time Receive d Time (Source) Location / / Volume Laterality 08/06/2014 11:51 08/06/2014 3:29 AM LICENSED VOCATIONAL NURSE PM LICENSED VOCATIONAL NURSE Delfina Knox MD LAB_1 Performing Organization Address [facility] Phon e Number HP CONVERSION documented in this encounter Visit Diagnoses Diagnosis Encounter for long-term (current) use of other medications documented in this encounter Care Teams Rugby Union Footballer Relationship Specialty Start Date End Date Md Valentin MD PCP - General 11/28/10 03/07/15 [place], [place] [address] documented as of this encounter
--- OUTSIDE RECORDS SUMMARY | 2022-05-17 08:32 | XMS_ITS | Encounter Summary ---
:1985 Author Organization [facility] Address [address] [place] [address] Care Team Providers Name Role Phone Md YOBANI Valentin Primary Care Provider Encounter Details Date Type Department Care Team Description 06/22/2009 PN Conversion Only EPISCOPAL CONVERSION Christina Hernadez MD [address] [place] [address] (Wo rk) Social History Tobacco Use Types Packs/Day Years Used Date Smoking Tobacco: Never Assessed Sex Assigned at Date Recorded Not on file documented as of this encounter Plan of Treatment Upcoming Encounters Date Type Specialty Care Team Description 05/18/2022 Appointment Rheumatology Erasmo Horn MD [address] [facility] [address] [address] (Wo rk) documented as of this encounter Procedures Procedure Name Priority Date/Time Associated Diagnosis Comme nts DERM PATH-DPF Routine 06/22/2009 1:13 PM Results for this CDT procedure are i n the results section . documented in this encounter Results DERM PATH-DPF (06/22/2009 1:13 PM CDT) [facility] gist Method Time Signature Dermatopathology SEE TEXT No normal HP CONVERSION Final Report range Comment: Patient: MANJIT DOHERTY ?D ERMATOPATHOLOGY Pathology # [id number] ?Date Obtained: [id number] ? Date Received: [id number] DIAGNOSIS: ?Skin, left forehead, excision: ?1. Residual and recurrent melanocy te proliferation, consistent with ? dysplastic nevus, free of roger l surgical margins (See Comment). ?2. Organizing biopsy site. COMMENT: ?Irregular nests and individual aty pical melanocytes are present along the ?dermoepidermal junction overlying the biopsy scar. In addition, junctional ?and dermal nests are present adjac ent to the scar. The previous biopsy ?([id number]) is also reviewed; t he residual lesion is identical, and the ?recurrent portion manifests increa sed cytologic atypia, as expected. The ?lesion now appears to be adequatel y treated; however, if pigment recurs at ?this site, additional biopsy is ad vised. ?Nash Omalley MD ?(electronic signature) RWW/RWW/cjk Date of Report: 06/25/09 CLINICAL DIAGNOSIS: ?Re-excision ORGAN/TISSUE SITE: ?Left forehead GROSS DESCRIPTION: ?Received is a 1.6 x 1.0 x 0.5 cm s kin ellipse. A suture in one tip ?identifies the medial edge. If t he suture is designated 12:00, the ?12:00-3:00-6:00 margin is inked bl ue; the 6:00-9:00-12:00 margin, black. ?Serially sectioned and submitted 1 (sutured tip) through 5. ?(Gross examination performed by [facility], [place], [place].) RWW/wired sweatband cutter Specimen (Source) Anatomical Collection Method Collection Time Re ceived Time Location / / Volume Laterality 06/22/2009 1:13 PM CDT Christina Hernadez MD LAB_1 Performing Organization Address City/State/ZIP Code Phon e Number HP CONVERSION documented in this encounter Visit Diagnoses Not on filedocumented in this encounter Care Teams Inhalation Therapy Aide Relationship Specialty Start Date End Date Md Homero, MD PCP - General 11/28/10 03/07/15 [place] [address] documented as of this encounter
--- OUTSIDE RECORDS SUMMARY | 2022-05-17 08:32 | XMS_ITS | Encounter Summary ---
:1985 Author Organization [email or web address] Address [address] [place] [address] Care Team Providers Name Role Phone Md YOBANI Valentin Primary Care Provider Encounter Details Date Type Department Care Team Description 06/22/2009 PN Conversion Only [facility] [address], [facility]at[facility] [address] [facility] [address] [place] [place] [address] [address] [place], [place] [phone] (Wo rk) Social History Tobacco Use Types Packs/Day Years Used Date Smoking Tobacco: Never Assessed Sex Assigned at Date Recorded Not on file documented as of this encounter Plan of Treatment Upcoming Encounters Date Type Specialty Care Team Description 05/18/2022 Appointment Rheumatology Erasmo Horn MD [address] [facility] N [id number] (Wo rk) documented as of this encounter Visit Diagnoses Not on filedocumented in this encounter Care Teams Retail Product Advisor Relationship Specialty Start Date End Date Md Valentin MD PCP - General 11/28/10 03/07/15 [place], [place] [id number] documented as of this encounter
--- OUTSIDE RECORDS SUMMARY | 2022-05-17 08:32 | XMS_ITS | Encounter Summary ---
:1985 Author Organization [employer] Address [address] [place] [address] Care Team Providers Name Role Phone Md YOBANI Valentin Primary Care Provider Encounter Details Date Type Department Care Team Description 08/29/2010 Office Visit [facility] [address] Kelli Vu PA-C Surgery [address] Mirtha Pascal [address] [place], [place] [phone] (Wo rk) Social History Tobacco Use Types Packs/Day Years Used Date Smoking Tobacco: Never Assessed Sex Assigned at Date Recorded Not on file documented as of this encounter Progress Notes Kelli Koch PA-C - 08/29/2010 12:01 AM CST Liana presents for suture removal from the forehead. She has no concerns. Sutures removed. Incision intact. Pathology reviewed with the pt. Reviewed scar mgmt. Begin ScarFade in 2 weeks. Continue steri-strips for 10 days. SPF 30 or higher when outside. Return to clinic prn. BILITATION CONSTRUCTION SPECIALIST documented in this encounter Plan of Treatment Upcoming Encounters Date Type Specialty Care Team Description 05/18/2022 Appointment Rheumatology Erasmo Horn MD [address] [facility] N [phone] (Wo rk) documented as of this encounter Visit Diagnoses Not on filedocumented in this encounter Care Teams Electronic Parts Salesperson Relationship Specialty Start Date End Date Md Valentin MD PCP - General 11/28/10 03/07/15 [place] [address] documented as of this encounter
--- OUTSIDE RECORDS SUMMARY | 2022-05-17 08:32 | XMS_ITS | Encounter Summary ---
:1985 Author Organization [employer] Address [address] [place] [address] Care Team Providers Name Role Phone Md YOBANI Valentin Primary Care Provider Encounter Details Date Type Department Care Team Description 07/25/2010 Office Visit [facility] [address] [place] [address] [place] [address] [phone] (Wo rk) Social History Tobacco Use Types Packs/Day Years Used Date Smoking Tobacco: Never Assessed Sex Assigned at Date Recorded Not on file documented as of this encounter Progress Notes Delfina Knox MD - 07/25/2010 12:01 AM CST NAME: MANJIT DOHERTY MR#: [id number] ACCT: [id number] VISIT: [id number] DICTATING CLINICIAN: Delfina Knox MD CONFIRM #: [id number] LOC: 527 CLINIC PROGRESS NOTE DATE OF VISIT: 07/25/2010 : 1985 Manjit is a 24-year-old with history of juvenile rheumatoid arthritis. She is in with her today, Dmitriy. They say she is not taking sulfasalazine. He says she does not have rheumatoid arthritis. She said she is doing fine without the sulfasalazine. She has had a thin melanoma on the left breast 0.39 mm in depth. She has had severely dysplastic nevus of distal right shoulder and atypical melanocytic lesion of left shoulder removed by Dr. Crowder, and a moderately dysplastic nevus on the forehead left removed by Maricarmen. In August of 2009 I took four nevi off. They were all moderately dysplastic. Last time I took one mole off the abdomen it was mildly dysplastic. She has some moles that would follow the left antecubital fossa right next a 2-tone mole that is unchanged. The left Achilles tendon mole she has had all her life and a right thigh mole she has had all of her life. Clenia and/or sunscreen caused burning of the face, so she stopped both, but she is not worried about anything on the face and the itchy neck rash cleared. She has one new mole on the left back she questions, and a mole that shiny and was initially a tiny brown mole on the upper forehead near the hairline and now she says it is shiny like the other ones have been in the past. EXAMINATION: She does have a very, very light faint brown pigmentation about 3 mm in size with a little pinkness that is very ill-defined around it. I failed to photograph it. It looks like a compound nevus with a little inflammation when I numbed it, and I removed it with a 3 mm plug to remove all the brown pigmentation, but no normal tissue around it. The mole on the left back is tiny in compound. I do not think it is worrisome. The 2-tone mole on the right neck is unchanged. A darker mole on the Achilles tendon in the thigh are fine. No lymphadenopathy was found in the neck, supraclavicular, axillary, nor groin area. ASSESSMENT: Rule out severely dysplastic nevus, but I think it is going to be fine on the forehead. The photograph did not cuff turner machine operator. I did not need to remove anything else today. We talked about vitamin D briefly and we will go ahead and check that level. I will call her in a week with that. Stitches out in 1 week, and if we need to do a re-excision on the forehead I asked Dr. Christina Hernadez to do that for us. She is also due for a chest x-ray and blood work and she is going to go ahead and do that today. SONNYV:JIMMIE C: CONFIRM #: [id number] ENT AMBASSADOR documented in this encounter Plan of Treatment Upcoming Encounters Date Type Specialty Care Team Description 05/18/2022 Appointment Rheumatology Erasmo Horn MD [address] [facility] [address] [place] N [address] (Wo rk) documented as of this encounter Procedures Procedure Name Priority Date/Time Associated Diagnosis Comme nts XR CHEST 2 VIEWS Routine 07/25/2010 9:11 AM Resul ts for this STUDENT AMBASSADOR procedure are i n the results section. documented in this encounter Results XR Chest 2 Views (07/25/2010 9:11 AM STUDENT AMBASSADOR) Anatomical Region Laterality Modality Chest, Lung Other Specimen (Source) Anatomical Location Collection Method / Collectio n Time Received Time / Laterality Volume Impressions 07/25/2010 9:11 AM STUDENT AMBASSADOR : Clear chest. ??No significant change. Dictating NAFISA CARRASCO Physician Narrative 07/25/2010 9:11 AM STUDENT AMBASSADOR COMPARISON: ??05/31/2009. FINDINGS: The heart size and pulmonary v ascularity are within normal limits. ??The lungs and pleural spaces a re clear. Procedure Note Nafisa Cadena MD - 02/11/2016For matting of this note might be different from the original. COMPARISON: 05/31/2009. FINDINGS: The heart size and pulmonary v ascularity are within normal limits. The lungs and pleural spaces are clear. IMPRESSION : Clear chest. No significant change. Dictating NAFISA CARRASCO Physician Delfina Knox MD RAD GD documented in this encounter Visit Diagnoses Not on filedocumented in this encounter Care Teams Classics Teacher Relationship Specialty Start Date End Date Pnc, MD Yobani PCP - General 11/28/10 03/07/15 [place] [address] documented as of this encounter
--- OUTSIDE RECORDS SUMMARY | 2022-05-17 08:32 | XMS_ITS | Encounter Summary ---
:1985 Author Organization [facility] Address [address] [place] [address] Care Team Providers Name Role Phone Md YOBANI Valentin Primary Care Provider Reason for Visit Reason Comments Post-Op Check Encounter Details Date Type Department Care Team Description 03/24/2011 Office Visit Specialty Center 393 Cordell Crowder MD Neoplasm of [facility] General Surgery [address] behavior of skin [address] (Primary Dx) [address] [place] [address] [id number] [phone] Social History Tobacco Use Types Packs/Day Years Used Date Smoking Tobacco: Never Assessed Sex Assigned at Date Recorded Not on file documented as of this encounter Progress Notes Ignacio Crowder MD - 03/24/2011 11:12 AM CDT Progress Notes signed by Ignacio Crowder MD at 03/24/11 5863 Author: Ignacio Crowder MD Service: (none) Author Type: Physician Filed: 03/24/11 9433 Note Time: 03/24/11 1112 Status: Signed Measurer Machine: Ignacio Crowder MD (Physician) NAME: MANJIT WASHINGTON MR#: [id number] CSN: [id number] AUTHENTICATING CLINICIAN: Ignacio Crowder MD CONFIRM #: [id number] LOC: 225 CLINIC PROGRESS NOTE DATE OF VISIT: 03/24/2011 : 1985 Ms. Washington is a 25-year-old who underwent wide excision of a dysplastic nevus, possible thin melanoma on 03/09/11. Postoperatively she has done well. She has no complaints. Her sutures were removed. Benzoin and Steri-Strips applied. She will continue to follow up with Dermatology. I will see her back on a p.r.n. basis. KM:JIMMIE C: CONFIRM #: [id number] documented in this encounter Plan of Treatment Upcoming Encounters Date Type Specialty Care Team Description 05/18/2022 Appointment Rheumatology Erasmo Horn MD [address] [facility] [address] (Wo rk) documented as of this encounter Visit Diagnoses Diagnosis Neoplasm of uncertain behavior of skin - Primary documented in this encounter Care Teams Woodworking Belt Sander Relationship Specialty Start Date End Date Md Valentin MD PCP - General 11/28/10 03/07/15 [place], [place] [id number] documented as of this encounter
--- OUTSIDE RECORDS SUMMARY | 2022-05-17 08:32 | XMS_ITS | Encounter Summary ---
:1985 Author Organization [facility] Address [address] [place] [address] Care Team Providers Name Role Phone Md YOBANI Valentin Primary Care Provider Reason for Visit Reason Comments Other Encounter Details Date Type Department Care Team Description 08/09/2010 Telephone [facility] Desire Cardenas RN [facility] [id number] [place] [id number] Social History Tobacco Use Types Packs/Day Years Used Date Smoking Tobacco: Never Assessed Sex Assigned at Date Recorded Not on file documented as of this encounter Progress Notes Center, Message - 08/09/2010 4:08 PM CST Phone Note filed by LaComunity at 12/18/1042 Author: LaComunity Service: (none) Author Type: (none) Filed: 12/18/1042 Note Time: 08/09/101607 Status: Signed Mcat Tutor: LaComunity (Resource) PSC Medication Issue/Refill Caller Name/Relationship:- self - Liana Primary Auto [employer] Shop Manager:Edgar Cardenas Patient to contacted pharmacy Yes or No:- yes, it was sent to the wrong [facility] Pharmacy on 08/02/2010 Comment:- please fax to correct pharmacy nicole, thank you [employer] Member ID #:- (if applicable) Pharmacy Name & Phone #:- [facility] [phone] or City:- [facility] Drug Name:- control see Last Word Strength:- Dose/Route/Freq:- Steam Press Tender:Edgar Gaines Best call back number:- [phone] Is it OK to leave a confidential message on this voicemail? *ECODE~PNRX Created on 09Aug2010 4:08pm by KIM RAMOS On 09Aug2010 4:09pm BESS JARAMILLO wrote: seq. #[phone] On 09Aug2010 4:23pm DESIRE CARDENAS wrote: sent to [facility] on [address] in [place]. left message for pt that it was sent there. Acknowledged by DESIRE CARDENAS on 4:23pm RESSOR TECHNICIAN documented in this encounter Plan of Treatment Upcoming Encounters Date Type Specialty Care Team Description 05/18/2022 Appointment Rheumatology Erasmo Horn MD [address] [facility] [id number] (Wo rk) documented as of this encounter Visit Diagnoses Not on filedocumented in this encounter Care Teams Mill Tender Relationship Specialty Start Date End Date Md Valentin MD PCP - General 11/28/10 03/07/15 [place], [place] [id number] documented as of this encounter
--- OUTSIDE RECORDS SUMMARY | 2022-05-17 08:32 | XMS_ITS | Encounter Summary ---
:1985 Author Organization [facility] Address [address] [place] [address] Care Team Providers Name Role Phone Md YOBANI Valentin Primary Care Provider Encounter Details Date Type Department Care Team Description 09/16/2009 Nursing Visit [facility] Gumaro, Tavia W, PA-C [address] [place] [address] [place] [address] [phone] (Wo rk) Social History Tobacco Use Types Packs/Day Years Used Date Smoking Tobacco: Never Assessed Sex Assigned at Date Recorded Not on file documented as of this encounter Plan of Treatment Upcoming Encounters Date Type Specialty Care Team Description 05/18/2022 Appointment Rheumatology Erasmo Horn MD [address] [facility] N [id number] (Wo rk) documented as of this encounter Visit Diagnoses Not on filedocumented in this encounter Care Teams Vasc Tech Relationship Specialty Start Date End Date Md Valentin MD PCP - General 11/28/10 03/07/15 [place], [place] [address] documented as of this encounter
--- OUTSIDE RECORDS SUMMARY | 2022-05-17 08:32 | XMS_ITS | Encounter Summary ---
:1985 Author Organization [facility] Address [address] [place] [address] Care Team Providers Name Role Phone Md YOBANI Valentin Primary Care Provider Reason for Visit Reason Comments Skin Check Encounter Details Date Type Department Care Team Description 04/26/2011 Office Visit Delfina Orta, Personal history of Dermatology MD [place] [address] [address] [address] (Primary Dx) [place] [address] [place], [place] [phone] (Wo rk) Social History Tobacco Use Types Packs/Day Years Used Date Smoking Tobacco: Never Assessed Sex Assigned at Date Recorded Not on file documented as of this encounter Progress Notes Delfina Knox MD - 04/26/2011 11:01 AM CDT This office note has been dictated. Delfina Knox MD - 04/26/2011 10:28 AM CDT Progress Notes signed by Delfina Knox MD at 05/05/11807 Author: Delfina Knox MD Service: (none) Author Type: Physician Filed: 05/05/11807 Note Time: 04/26/11 1028 Status: Signed Parts Cataloger: Delfina Knox MD (Physician) NAME: MANJIT DOHERTY MR#: [id number] CSN: [id number] AUTHENTICATING CLINICIAN: Delfina Knox MD CONFIRM #: [id number] LOC: 527 CLINIC PROGRESS NOTE DATE OF VISIT: 04/26/2011 : 1985 Manjit is 25-year-old here for a full body exam. She had a recent atypical mole on the left anterior lower leg that could have been a melanoma, 0.18 mm in depth. It was not defined, but I did have Dr. Ignacio Crowder reexcise it. She is still little sore there. She has noticed a mole on the back of this left calf that she has not noticed before, but she is not sure if it is new or not. Definitely a new one in the left antecubital fossa that she feels is similar to the one that she has had removed in the past that was atypical. She has had a melanoma on her left breast, 0.3 mm in depth, 05/05. A chest x- ray and blood work is due in June. Her abdominal pain and headaches are better. She did not follow up with a doctor to check on that. Achilles mole was shaved by another MD and the color got back. I did get the path report and called her and told it was fine. When the path was sent to [facility], somehow everything but the path report got in there, but I had called and told her it was fine. ALLERGIES: She is allergic to bacitracin and bandages and Flagyl. MEDICATIONS: She is on Differin, vitamin D and Clenia. EXAMINATION: Her acne is clear, really. Face shows a few compound nevi, a few scars. Left upper back is a linear scar that is well healed. Left anterior chapa is a scar that is healing, without sign of infection. A couple of stitches are popping through that I pulled through superior and middle of the suture. I was going to photograph this suture line, because she has a small freckle off to the side of it penitentiary down and I failed to do that, but I will want to photograph that on followup, so that we know that that is there and if it were to change. Left calf, she does have a little pinkish mole, pigmented, that I do not think looks worrisome and with this leg still being very sore from the recent surgery, we are going to photograph and follow. I did a close-up and a far-away to position it. Left antecubital fossa, she has this telangiectatic pink mole that is flat, a little bit of brown color. It is below a compound nevus that is darker, so in the photograph that one will look worse. This one under the dermatoscope has many little uniform, pink, kind of telangiectatic globules within it, quite uniform, but she is worried about it. I would like to take it out and see what it looks like under the dermatoscope. Lymph nodes are negative, neck, supraclavicular, infraclavicular, axillary and groin. ASSESSMENT: Rule out severely dysplastic nevus, left antecubital fossa. Follow mole, left calf. History of melanoma. PLAN: This was removed completely with a 6 mm plug biopsy. Placed two 5-0 Ethilon stitches. Photographs taken of some other moles. I will see her back in 3-4 months. Chest x-ray and blood work will need to be done then. left antecubital fossa- compound nevus VLV:MEDQ C: CONFIRM #: [id number] documented in this encounter Plan of Treatment Upcoming Encounters Date Type Specialty Care Team Description 05/18/2022 Appointment Rheumatology Erasmo Horn MD [address] [facility] N [phone] (Wo rk) documented as of this encounter Visit Diagnoses Diagnosis Personal history of malignant melanoma o f skin - Primary documented in this encounter Care Teams Mechanic Foreman Relationship Specialty Start Date End Date Md Valentin MD PCP - General 11/28/10 03/07/15 [place], [place] [phone] documented as of this encounter
--- OUTSIDE RECORDS SUMMARY | 2022-05-17 08:32 | XMS_ITS | Encounter Summary ---
:1985 Author Organization [employer] Address [address] [place] [address] Care Team Providers Name Role Phone Md YOBANI Valentin Primary Care Provider Encounter Details Date Type Department Care Team Description 09/23/2009 PN Conversion [place] [address] [place] [address] [place], [place] [phone] Social History Tobacco Use Types Packs/Day Years Used Date Smoking Tobacco: Never Assessed Sex Assigned at Date Recorded Not on file documented as of this encounter Plan of Treatment Upcoming Encounters Date Type Specialty Care Team Description 05/18/2022 Appointment Rheumatology Erasmo Horn MD [address] [facility] [address] (Wo rk) documented as of this encounter Procedures Procedure Name Priority Date/Time Associated Comments Diagnosis URINALYSIS Routine 09/23/2009 8:04 PM Results f or this ROUTINE(MICRO IF POS) ROD PULLER proced ure are in the results section. URINALYSIS Routine 09/23/2009 8:04 PM Results f or this MICROSCOPIC ROD PULLER procedure are i n the results section. documented in this encounter Results (ABNORMAL) URINALYSIS MICROSCOPIC (09/23/2009 8:04 PM ROD PULLER) [facility] Method Time Signature White Blood 0-2/HPF 0 - 3 HP CONVERSION Cells Urine Red Blood 0-2/HPF 0 - 2 HP CONVERSION Cells Urine Bacteria Urine Occassnl (A) None HP CONVERSIO N Urine Mucus Moderate None HP CONVERSION Epithelial Moderate Few /HPF HP CONVERSION Cells Specimen (Source) Anatomical Collection Method Collection Time Re ceived Time Location / / Volume Laterality 09/23/2009 8:04 PM ROD PULLER Ki Grey MD LAB_1 Performing Organization Address [facility] Phon e Number HP CONVERSION URINALYSIS ROUTINE(MICRO IF POS) (09/23/2009 8:04 PM ROD PULLER) [facility] gist Method Time Signature Turbidity Clear No normal HP CONVERSION range pH Urine 6.5 4.5 - 7.5 HP CONVERSION Protein Urine Negative Neg-Trac HP CONVERSION Glucose, Negative Neg-Trac HP CONVERSION Qualitative U Ketones Negative Negative HP CONVERSION U BILI Negative Negative HP CONVERSION Blood Urine Negative Negative HP CONVERSION Nitrite Urine Negative Negative HP CONVERSION Leukocyte Negative Negative HP CONVERSION Esterase Urine Urobilinogen Negative 0.2 - 1.0 HP CONVERSION Urine U Specific 1.025 1.005 - 25 HP CONVERSION [place] Specimen (Source) Anatomical Collection Method Collection Time Re ceived Time Location / / Volume Laterality 09/23/2009 8:04 PM ROD PULLER Ki Grey MD LAB_1 Performing Organization Address City/[facility] Phon e Number HP CONVERSION documented in this encounter Visit Diagnoses Not on filedocumented in this encounter Care Teams Commercial Producer Relationship Specialty Start Date End Date Md Valentin MD PCP - General 11/28/10 03/07/15 [place] [address] documented as of this encounter
--- OUTSIDE RECORDS SUMMARY | 2022-05-17 08:32 | XMS_ITS | Encounter Summary ---
:1985 Author Organization [facility] Address [address] [place] [address] Care Team Providers Name Role Phone Md YOBANI Valentin Primary Care Provider Encounter Details Date Type Department Care Team Description 12/06/2009 Procedure Visit [facility] [place] [address] [place] [address] [place] [address] [phone] (Wo rk) Social History Tobacco Use Types Packs/Day Years Used Date Smoking Tobacco: Never Assessed Sex Assigned at Date Recorded Not on file documented as of this encounter Progress Notes Delfina Delaney MD - 12/06/2009 12:01 AM CDT Progress Notes signed by Delfina Delaney MD at 12/09/09 0730 Author: Delfina Delaney MD Service: (none) Author Type: Physician Filed: 12/17/10 2134 Note Time: 12/06/09 0001 Status: Signed Hadoop Analyst: Delfina Delaney MD (Physician) NAME: MANJIT DOHERTY MR#: [id number] ACCT: [id number] VISIT: [id number] DICTATING CLINICIAN: DELFINA DELANEY MD CONFIRM #: [id number] LOC: 527 CLINIC PROGRESS NOTE DATE OF VISIT: 12/06/2009 SUBJECTIVE: Manjit is a 23-year-old here for full-body exam. She had a thin melanoma 04/2009, 0.39 mm in depth of the left breast. She has had a severely dysplastic nevus, distal right shoulder; atypical melanocytic lesion on the left shoulder Dr. Crowder reexcised; a moderately dysplastic nevus on the forehead Dr. Hernadez excised. I took off 4 nevi last time. They came back moderately dysplastic or less, and a couple on the shoulders were not excised histopathologically, but clinically they looked clear. She has a mole on the left antecubital fossa that I wanted to follow. Quite frankly it looked normal today, enough that I did not stop to really look at it. Her a mole in the right eyebrow I shaved off last time is looking good. She has a mole that is 2-toned on the right neck that is unchanged from the photograph. She has a mole on the back of the left Achilles tendon area that is a little bit larger brown, but no inflammation, looks fine, we can follow. She has a mole on the, I think, right thigh that she has had since she was a child that looks normal brown. She has a new mole on the left abdomen. She said it is exactly how her other funny moles started. It is pink and elevated, a little sensitive, and although clinically it looks not impressive, I need to pay attention to her gestalt, and we will take that out today. She has noticed an itching in the afternoon around the neck. It gets little red spots and starts to really itch, and she does not know why. She is not putting anything on the neck. She does shampoo, of course, cream rinse and some hair products, and I have asked her to use test for that. OBJECTIVE: Full-body exam, including scalp, face, neck, chest, back, abdomen, buttocks, groin, arms, legs, hands, feet, nails, perirectal, and pubic area revealed, again, the moles I mentioned above. I did not find anything unusual. This left lateral abdomen mole that is at the waistline is slightly elevated, slightly pink with maybe a little brown pigmentation off to the side. It is very faint, and had she not pointed it out, I probably would not have stopped at it, but with her history, I think it is best to be removed. She does have comedonal acne over the forehead, central forehead, and then some charley derm distribution and some acne and redness of the central cheeks. The neck is without a rash. ASSESSMENT: Charley derm, acne overlap, history of melanoma and dysplastic nevi. PLAN: I failed to mention, I did do lymph node exam, neck, supraclavicular, infraclavicular, axillary and groin and found nothing. Her scars are well-healed with no sign of recurrence. We removed this mole in the usual fashion with a 6 mm plug to make sure I cleared it completely on the left lateral abdomen at the natural waist. Two 5-0 Ethilon stitches placed. Will try Clenia daily for the face as a cream and Differin gel twice a week for the comedonal component. I will see her back at 3 months, at which time I will want to check a zinc, copper, vitamin D, calcium, as well as all her other blood work, chest x-ray. I will call her with the results in the near future. [id number] C: 12/06/09 14:21 CONFIRM #: [id number] documented in this encounter Plan of Treatment Upcoming Encounters Date Type Specialty Care Team Description 05/18/2022 Appointment Rheumatology Erasmo Horn MD [address] [facility] N 200756 (Wo rk) documented as of this encounter Visit Diagnoses Not on filedocumented in this encounter Care Teams Patient Observer Relationship Specialty Start Date End Date Md Valentin MD PCP - General 11/28/10 03/07/15 [place] [address] documented as of this encounter
--- OUTSIDE RECORDS SUMMARY | 2022-05-17 08:32 | XMS_ITS | Encounter Summary ---
:1985 Author Organization [facility] Address [address] [place] [address] Care Team Providers Name Role Phone Md YOBANI Valentin Primary Care Provider Reason for Visit Reason Comments Other Encounter Details Date Type Department Care Team Description 07/28/2009 Telephone [facility] Maddy Rivera, [facility] [address] [place] [address] Social History Tobacco Use Types Packs/Day Years Used Date Smoking Tobacco: Never Assessed Sex Assigned at Date Recorded Not on file documented as of this encounter Progress Notes Tim Hicks RN - 07/28/2009 9:48 AM CST Phone Note filed by Tim Hicks RN at 12/16/101754 Author: Tim Hicks RN Service: (none) Author Type: (none) Filed: 12/16/101754 Note Time: 07/28/09947 Status: Signed Medical Case Worker: Ciro Ram (Physician) Liana will be stopping by clinic to slate picker a signed copy of the letter--see phone note 07-21.She needs to turn it in tomorrow and fears it will not arrive in mail in time. Created on 28Jul2009 9:48am by TIM HICKS On 28Jul2009 10:49MAGALYS Pascual wrote: can you get a copy? vvr Acknowledged by MAGALYS DELANEY on 10:49am On 28Jul2009 12:01pm MADDY RIVERA wrote: Copy printed and left at turner machine operator for slate picker. Original letter was mailed to pt. several days ago. Acknowledged by MADDY RIVERA on 12:01pm E LINING FINISHER documented in this encounter Plan of Treatment Upcoming Encounters Date Type Specialty Care Team Description 05/18/2022 Appointment Rheumatology Erasmo Horn MD [address] [facility] [address] (Wo rk) documented as of this encounter Visit Diagnoses Not on filedocumented in this encounter Care Teams Process Validation Engineer Relationship Specialty Start Date End Date Md Valentin MD PCP - General 11/28/10 03/07/15 [place] [address] documented as of this encounter
--- OUTSIDE RECORDS SUMMARY | 2022-05-17 08:32 | XMS_ITS | Encounter Summary ---
:1985 Author Organization [facility] Address [address] [place] [address] Care Team Providers Name Role Phone Md YOBANI Valentin Primary Care Provider Encounter Details Date Type Department Care Team Description 08/24/2009 Office Visit [place] arvind Aleman, [address] [facility] [place] [address] [address] [facility] [phone] [facility] N [address] (Wo rk) Social History Tobacco Use Types Packs/Day Years Used Date Smoking Tobacco: Never Assessed Sex Assigned at Date Recorded Not on file documented as of this encounter Last Filed Vital Signs Vital Sign Reading Time Taken Comments Blood Pressure 126/68 08/24/2009 10:21 AM SOFTWARE LEAD Pulse 88 08/24/2009 10:21 AM SOFTWARE LEAD Temperature - - Respiratory Rate - - Oxygen Saturation - - Inhaled Oxygen Concentration - - Weight 59.9 kg (131 lb 15.8 oz) 08/24/2009 10:21 AM C: 59.9kg SOFTWARE LEAD Height - - Body Mass Index 24.14 05/27/2009 9:35 AM CDT documented in this encounter Progress Notes Jaylon Aleman MD - 08/24/2009 12:01 AM CST Progress Notes signed by Jaylon Aleman MD at 08/24/09 1056 Author: Jaylon Aleman MD Service: (none) Author Type: Physician Filed: 12/17/10 1908 Note Time: 08/24/09 0001 Status: Signed Motorcycle Riding Instructor: Jaylon Aleman MD (Physician) SUBJECTIVE: Follow-up for juvenile rheumatoid arthritis. History of present illness: This is a 3-month follow-up for JRA. She is currently taking hydroxychloroquine 400-mg a day. She has loose stool daily an hour after that she has taken hydroxychloroquine. Her joints in general are doing well. She still has symptoms of right greater trochanteric bursitis. She has been taking ibuprofen regularly for the past several weeks without significant help. Past medical history, family and social history, current medications and adverse reactions were updated in EMR. Physical exams: Vital signs per flow sheet. General appearance: A well-groomed young female who was not in acute physical distress. Musculoskeletal exams: All 4 extremities were examined. No significant synovitis/inflammatory arthritis/effusion in any joints. Marked tenderness over right greater trochanter bursa area compression. Normal gait, normal muscle power and tone. Assessment and plan: 1. Juvenile rheumatoid arthritis, clinically inactive. 2. Right greater trochanteric bursitis. Pain is rated as 6. RAPID 3 score is 9.7. Her juvenile rheumatoid arthritis is in complete remission. I discussed with her about alternative options for a disease modifying agent as the patient has seemed to develop diarrhea daily from hydroxychloroquine. The first option would be to go back on methotrexate which is not interested due to flulike illness 24 hours later which she experienced for two years. The second option would be sulfasalazine. This could still be associated with the stomach intolerance in minority of the patient. It also requires blood test monitoring for CBC, transaminase and creatinine every few months. She would like to try sulfasalazine. The prescription was provided. She was to hydroxychloroquine while taking sulfasalazine. The current right-sided hip pain is related to bursitis which is not related to her juvenile rheumatoid arthritis. As she has not had a good response with ibuprofen, a cortisone injection was offered and she agreed to pursue. Consent was verbally obtained. Right greater trochanteric bursal area was prepped in a sterile fashion. Ethyl chloride spray was used as a local anesthetic agent. A total of two ml of 1% lidocaine mixed with 60-mg of triamcinolone was injected into right greater trochanteric bursal area without acute complication. H1 N1 vaccination was recommended and provided today. I will see the patient back in 3 months. The patient will have the blood test monitoring before the next appointment. Total time is 15 minutes, 8 minutes counseling, 6 minutes procedure. *SH~DNS~SOAP WARE LEAD documented in this encounter Plan of Treatment Upcoming Encounters Date Type Specialty Care Team Description 05/18/2022 Appointment Rheumatology Erasmo Horn MD [address] [facility] [id number] (Wo rk) documented as of this encounter Visit Diagnoses Not on filedocumented in this encounter Care Teams Hem Marker Relationship Specialty Start Date End Date Md Valentin MD PCP - General 11/28/10 03/07/15 [place], [place] [id number] documented as of this encounter
--- OUTSIDE RECORDS SUMMARY | 2022-05-17 08:32 | XMS_ITS | Encounter Summary ---
:1985 Author Organization [facility] Address [address] [place] [address] Care Team Providers Name Role Phone Md YOBANI Valentin Primary Care Provider Encounter Details Date Type Department Care Team Description 10/12/2009 PN Conversion Only [place] [facility] N Tavia Naik W, [address] [place] [address] [address] [place], [place] [address] (Wo rk) Social History Tobacco Use Types Packs/Day Years Used Date Smoking Tobacco: Never Assessed Sex Assigned at Date Recorded Not on file documented as of this encounter Plan of Treatment Upcoming Encounters Date Type Specialty Care Team Description 05/18/2022 Appointment Rheumatology Erasmo Horn MD [address] [facility] N [address] (Wo rk) documented as of this encounter Procedures Procedure Name Priority Date/Time Associated Comments Diagnosis WET PREP Routine 10/12/2009 2:23 PM Results f or this JET AIRCRAFT SERVICER procedure are i n the results section. URINALYSIS ROUTINE, Routine 10/12/2009 1:53 PM Re sults for this MICRO/CULTURE IF POS JET AIRCRAFT SERVICER procedu re are in the results section. URINALYSIS Routine 10/12/2009 1:53 PM Results f or this MICROSCOPIC JET AIRCRAFT SERVICER procedure are i n the results section. URINE CULTURE Routine 10/12/2009 1:53 PM Results for this JET AIRCRAFT SERVICER procedure are i n the results section. MYCOPLASMA/UREAPLASMA Routine 10/12/2009 12:42 Re sults for this CULTURE PM JET AIRCRAFT SERVICER procedure are i n the results section. documented in this encounter Results Wet Prep (10/12/2009 2:23 PM JET AIRCRAFT SERVICER) athologist Signature Wet Prep SEE TEXT HP CONVERSION Comment: Patient: MANJIT DOHERTY R Wet Prep ?Collected: ??[id number] ??[id number] Source: Vaginal ? Processed: ??[id number] ??[id number] ? V Final Report ------ Moderate WBCs seen Many epithelial cells seen No Trichomonas seen No yeast seen Few clue cells seen Specimen (Source) Anatomical Collection Method Collection Time Re ceived Time Location / / Volume Laterality 10/12/2009 2:23 PM JET AIRCRAFT SERVICER Tavia Naik PA-C LAB_1 Performing Organization Address City/State/ZIP Code Phon e Number HP CONVERSION Urine Culture (10/12/2009 1:53 PM JET AIRCRAFT SERVICER) Analysis Per[facility] Time Signature Urine Culture SEE TEXT HP CONVERSION Comment: Patient: MANJIT DOHERTY R Culture, Urine ?Collected: ??[id number] ??[id number] Source: Clean Ca ?Processed: ??[id number] ??[id number] ? 1V Final Report ------ ?[id number] ??[id number] No growth Specimen (Source) Anatomical Collection Method Collection Time Re ceived Time Location / / Volume Laterality 10/12/2009 1:53 PM JET AIRCRAFT SERVICER Tavia Naik PA-C LAB_1 Performing Organization Address City/State/ZIP Code Phon e Number HP CONVERSION (ABNORMAL) URINALYSIS MICROSCOPIC (10/12/2009 1:53 PM JET AIRCRAFT SERVICER) P athologist Signature White Blood 0-2/HPF 0 - 3 HP CONVERSION Cells Urine Comment: Urine culture has been ordered per r eflex test protocol. Red Blood Cells Urine 0-2/HPF 0 - 2 HP CONVE RSION Comment: Urine culture has been ordered per r eflex test protocol. Bacteria Urine Occassnl (A) None HP CONVERSIO N Comment: Urine culture has been ordered per r eflex test protocol. Urine Mucus Large None HP CONVERSION Comment: Urine culture has been ordered per r eflex test protocol. Epithelial Cells Few Few /HPF HP CONVERSION Comment: Urine culture has been ordered per r eflex test protocol. Specimen (Source) Anatomical Collection Method Collection Time Re ceived Time Location / / Volume Laterality 10/12/2009 1:53 PM JET AIRCRAFT SERVICER Tavia JOSEPHC LAB_1 Performing Organization Address City/[facility]/ZIP Code Phon e Number HP CONVERSION URINALYSIS ROUTINE, MICRO/CULTURE IF POS (10/12/2009 1:53 PM JET AIRCRAFT SERVICER) [employer] Method Time Signature Turbidity Clear No normal HP CONVERSION range pH Urine 6.0 4.5 - 7.5 HP CONVERSION Protein Urine Negative Neg-Trac HP CONVERSION Glucose, Negative Neg-Trac HP CONVERSION Qualitative U Ketones Negative Negative HP CONVERSION U BILI Negative Negative HP CONVERSION Blood Urine Negative Negative HP CONVERSION Nitrite Urine Negative Negative HP CONVERSION Leukocyte Negative Negative HP CONVERSION Esterase Urine Urobilinogen Negative 0.2 - 1.0 HP CONVERSION Urine U Specific 1.020 1.005 - 25 HP CONVERSION [place] Specimen (Source) Anatomical Collection Method Collection Time Re ceived Time Location / / Volume Laterality 10/12/2009 1:53 PM JET AIRCRAFT SERVICER Tavia Naik PA-C LAB_1 Performing Organization Address [facility] Code Phon e Number HP CONVERSION Mycoplasma/Ureaplasma Culture (10/12/2009 12:42 PM JET AIRCRAFT SERVICER) [employer] Method Time Signature Ureaplasma/Myc See Note No normal HP CONVERSION oplasma range Culture Comment: MYCOPLASMA CULTURE, GENITAL MYCOPLASMA HOMINIS ? NONE I SOLATED UREAPLASMA UREALYTICUM ? NONE ISO LATED STATUS ? FINAL Ureaplasma urealyticum is one of several mycoplasma species isolated from the human genital tract. A lthough most genital mycoplasmas are considered nonpathogenic commensals of man, U. urealyticum is one of the few species most commonly associated with disease. U. urealyticum has been shown to play a role in nongonococcal urethritis (LAURA), however a causative role in reproductive failure a nd infertility have yet to be substantiated. ??Futhermore, U . unrealyticum can be recovered fro the genital mucosa of appr oximately 60% of sexually active adults. ??Therefore, rec overy of the organism, in the absence of disease, may indicate colonization rather than infection. ??Colonization of infant s occures usually during passage through the infected ellis h canal whereas colonization later in life occures throu gh sexual contact. U. urealyticum can be isolated from the gen ital tract of one third of girls and from the nose and throat of about 15% of infants of both sexes. ??However, colonization rarely persists beyond the age of 2. Performed at [facility] [address] [place] [address] Specimen (Source) Anatomical Collection Method Collection Time Re ceived Time Location / / Volume Laterality 10/12/2009 12:42 PM JET AIRCRAFT SERVICER Tavia Naik PA-C LAB_1 Performing Organization Address City/State/ZIP Code Phon e Number HP CONVERSION documented in this encounter Visit Diagnoses Not on filedocumented in this encounter Care Teams Instructional Technology Instructor Relationship Specialty Start Date End Date Md Valentin MD PCP - General 11/28/10 03/07/15 [place] [address] documented as of this encounter
--- OUTSIDE RECORDS SUMMARY | 2022-05-17 08:32 | XMS_ITS | Encounter Summary ---
:1985 Author [facility] Address [address] [place] [address] Care Team Providers Name Role Phone Md YOBANI Valentin Primary Care Provider Encounter Details Date Type Department Care Team Description 09/23/2009 Office Visit [facility] [place] [address] [address] [place] [address] [place] [address] [phone] Social History Tobacco Use Types Packs/Day Years Used Date Smoking Tobacco: Never Assessed Sex Assigned at Date Recorded Not on file documented as of this encounter Last Filed Vital Signs Vital Sign Reading Time Taken Comments Blood Pressure 124/81 09/23/2009 7:45 PM BEATER HEAD Pulse 91 09/23/2009 7:45 PM BEATER HEAD Temperature 37.1 ??C (98.8 ??F) 09/23/2009 7:45 PM BEATER HEAD C: 37 .1 C Respiratory Rate 16 09/23/2009 7:45 PM BEATER HEAD Oxygen Saturation - - Inhaled Oxygen Concentration - - Weight - - Height - - Body Mass Index - - documented in this encounter Progress Notes Ki Grey MD - 09/23/2009 12:01 AM CST Progress Notes signed by Ki Grey MD at 10/05/09 1525 Author: Ki Grey MD Service: (none) Author Type: Physician Filed: 12/17/10 1950 Note Time: 09/23/09 0001 Status: Signed Tin Plater: Ki Grey MD (Physician) NAME: MANJIT DOHERTY MR#: [id number] ACCT: [id number] VISIT: [id number] DICTATING CLINICIAN: Ki Grey MD CONFIRM #: [id number] LOC: 520 CLINIC PROGRESS NOTE DATE OF VISIT: 09/23/2009 SUBJECTIVE: A 23-year-old with URI symptoms, cold and sore throat lasting over a week now. Now complaining of ear discomfort. REVIEW OF SYSTEMS: She also complains that she is having urinary frequency, with high volumes of urine during the day, but is not having nocturia. Is not having dysuria. Denies vaginal discharge of significance. OBJECTIVE: VS: BP: 124/81. T: 98. P: 91. R: 16. HEENT EXAM: Shows a reddened pharynx, with slightly enlarged tonsillar tissues; no exudative changes. Sinuses are generally congested. The right tympanic membrane is retracted and reddened. NECK: Supple, without enlarged nodes. LUNG BRANDT: Clear. BACK: Without CVA discomfort. ABDOMEN: Soft, nontender. No suprapubic tenderness at this time. No suprapubic fullness or mass effect. ASSESSMENT: Right otitis media. Urinary frequency. PLAN: Urinalysis is negative; therefore, will not treat at this time, but do recommend followup if persistent urinary frequency does occur. At this time, treat the active infection that is noted with amoxicillin 500 mg t.i.d. for 10 days. Recheck the ear and the urine status in a week to 10 days. TEL:[id number] C: 09/23/09 23:28 CONFIRM #: [id number] ER HEAD documented in this encounter Plan of Treatment Upcoming Encounters Date Type Specialty Care Team Description 05/18/2022 Appointment Rheumatology Erasmo Horn MD [address] [place] [address] (Wo rk) documented as of this encounter Visit Diagnoses Not on filedocumented in this encounter Care Teams Latent Fingerprint Examiner Relationship Specialty Start Date End Date Md Valentin MD PCP - General 11/28/10 03/07/15 [place] [address] documented as of this encounter
--- OUTSIDE RECORDS SUMMARY | 2022-05-17 08:32 | XMS_ITS | Encounter Summary ---
:1985 Author Organization [facility] Address [address] [place] [address] Care Team Providers Name Role Phone Md YOBANI Valentin Primary Care Provider Reason for Visit Reason Comments Other Encounter Details Date Type Department Care Team Description 07/21/2009 Telephone [facility] [address] Lucia Delaney MD Other Dermatology [address] [place] [address] [place] [address] [place] [address] [phone] Social History Tobacco Use Types Packs/Day Years Used Date Smoking Tobacco: Never Assessed Sex Assigned at Date Recorded Not on file documented as of this encounter Progress Notes Jessica Ward RN - 07/21/2009 11:15 AM CST Phone Note filed by Jessica Ward RN at 12/16/101728 Author: Jessica Ward RN Service: (none) Author Type: Registered Nurse Filed: 12/16/101728 Note Time: 07/21/09 1113 Status: Signed Retail Parts Professional: Jessica Ward RN (Registered Nurse) Pt had surgery in June 04 to remove melanoma. Pt needs a note for her finacial aid person at school. The note will serve as proof that she has financial hardships due to bills from surgery and she will then qualify for finacial aid. Please just indicate on the letter that pt had skin cancer and had surgery. Pt would like to picker feeder the letter in clinic. Please call when ready. [phone]. Created on 21Jul2009 11:15am by JESSICA WARD On 27Jul2009 8:06am MAGALYS DELANEY wrote: letter sent Acknowledged by MAGALYS DELANEY on 8:06am STANT FRONT OFFICE MANAGER documented in this encounter Plan of Treatment Upcoming Encounters Date Type Specialty Care Team Description 05/18/2022 Appointment [facility]umatology [facility]asmo Horn MD [address] [facility] [id number] (Wo rk) documented as of this encounter Visit Diagnoses Not on filedocumented in this encounter Care Teams Tubing Supervisor Relationship Specialty Start Date End Date Md Valentin MD PCP - General 11/28/10 03/07/15 [place] [address] documented as of this encounter
--- OUTSIDE RECORDS SUMMARY | 2022-05-17 08:32 | XMS_ITS | Encounter Summary ---
:1985 Author Organization [facility] Address [address] [place] [address] Care Team Providers Name Role Phone Md YOBANI Valentin Primary Care Provider Reason for Visit Reason Comments Other Encounter Details Date Type Department Care Team Description 10/15/2009 Telephone [facility], Message Other [address] [place] [address] Social History Tobacco Use Types Packs/Day Years Used Date Smoking Tobacco: Never Assessed Sex Assigned at Date Recorded Not on file documented as of this encounter Progress Notes Center, Message - 10/15/2009 9:38 AM CST Phone Note filed by [email or web address] at 12/16/102351 Author: [email or web address] Service: (none) Author Type: (none) Filed: 12/16/107 Note Time: 10/15/09937 Status: Signed Protection Manager: [email or web address] (Resource) Front Line Sx Call Caller Name/Relationship:Liana Primary Consultant Technology:Chance Souza Symptom or request?Pt was seen on 10-12 and was given an rx for Metronidazole. Pt reports the rx gives her painful headaches. Is appointment scheduled & when?n Information Systems Consultant:Liana Best call back number:[phone] Is it OK to leave a confidential message on this voicemail?y *ECODE~PNSX2 Created on 15Oct2009 9:38am by DENA MEIER R On 15Oct2009 9:51am MOO SANON wrote: MESSAGE TO CARE TEAM NAME OF CALLER:Liana NAME OF CLINICIAN:Wyatt MESSAGE:Patient was prescribed Flagyl for bacterial vaginosis on 10/12. Took first dose on 10/13 and 1 hour after taking it she developed a headache. The headache has been pretty much constant since sunday. She will wake up headache free but after taking morning dose she develops headache 6/10 pain. She has tried ibuprofen and tylenol without relief. Did not take flagyl today and has no headache. Can medication be changed. Patient would prefer something oral if there is an alternative. PHARMACY NAME:[facility] PHONE #:[phone] CITY:[place] CALL BACK PHONE OR CELL PHONE:[phone] BEST TIME TO CALL BACK: IS IT OK TO LEAVE A CONFIDENTIAL MESSAGE ON THIS VOICEMAIL?yes *ECODE~PNMSG On 15Oct2009 10:23am WYATT SOUZA wrote: Rx for clindamycin orally was sent to her pharmacy. She should stay off of the metronidazole. Acknowledged by WYATT SOUZA on 10:23am On 15Oct2009 10:27am MEENA ROBERTS wrote: The above message given to the pt. Acknowledged by MEENA ROBERTS on 10:27am ATIONAL TEST MECHANIC documented in this encounter Plan of Treatment Upcoming Encounters Date Type Specialty Care Team Description 05/18/2022 Appointment Rheumatology Erasmo Horn MD [address] [facility] [place] N [address] (Wo rk) documented as of this encounter Visit Diagnoses Not on filedocumented in this encounter Care Teams Layer Out Plate Glass Relationship Specialty Start Date End Date Md Valentin MD PCP - General 11/28/10 03/07/15 [place], [place] [address] documented as of this encounter
--- OUTSIDE RECORDS SUMMARY | 2022-05-17 08:32 | XMS_ITS | Encounter Summary ---
:1985 Author Organization [facility] Address [address] [place] [address] Care Team Providers Name Role Phone Md YOBANI Valentin Primary Care Provider Encounter Details Date Type Department Care Team Description 01/11/2010 PN Conversion Only [place] [facility] [place], [address] [facility] [place] [address] [address] [place] [address] (Wo rk) Social History Tobacco Use Types Packs/Day Years Used Date Smoking Tobacco: Never Assessed Sex Assigned at Date Recorded Not on file documented as of this encounter Plan of Treatment Upcoming Encounters Date Type Specialty Care Team Description 05/18/2022 Appointment Rheumatology Erasmo Horn MD [address] [facility] N [address] (Wo rk) documented as of this encounter Procedures Procedure Name Priority Date/Time Associated Comments Diagnosis CREATININE / GFR Routine 01/11/2010 11:41 AM Resu lts for this CDT procedure are i n the results section. COMPLETE BLOOD Routine 01/11/2010 11:41 AM Result s for this COUNT-W/DIFF CDT procedure are i n the results section. ALT (SGPT) Routine 01/11/2010 11:41 AM Results for this CDT procedure are i n the results section. documented in this encounter Results Hemogram/Plts/Diff (01/11/2010 11:41 AM CDT) athologist Signature White Blood Cell 4.8 3.8 - 11.0 HP CONVERSIO N Count k/cmm Red Blood Cell 4.27 3.70 - HP CONVERSION Count 5.20 m/cmm Hemoglobin 13.2 11.8 - HP CONVERSION 15.5 g/dL Hematocrit 38.3 35.0 - HP CONVERSION 46.0 % Mean Corpuscular 89.9 80.0 - HP CONVERSION Volume 100.0 fL RDW 11.8 11.0 - HP CONVERSION 15.0 % Platelet Count 201 140 - 450 HP CONVERSION k/cmm Absolute 3.0 2.0 - 6.8 HP CONVERSION Neutrophils k/cmm Absolute 1.5 1.0 - 4.0 HP CONVERSION Lymphocytes k/cmm Absolute 0.2 0.2 - 1.0 HP CONVERSION Monocytes k/cmm Absolute 0.1 0.0 - 0.5 HP CONVERSION Eosinophils k/cmm Absolute 0.0 0.0 - 0.2 HP CONVERSION Basophils k/cmm Specimen (Source) Anatomical Collection Method Collection Time Re ceived Time Location / / Volume Laterality 01/11/2010 11:41 AM CDT Jaylon Aleman MD LAB_1 Performing Organization Address City/State/ZIP Code Phon e Number HP CONVERSION Creatinine / GFR (01/11/2010 11:41 AM CDT) athologist Signature Creatinine 0.7 0.4 - 1.3 HP CONVERSION Serum mg/dL Est GFR >60 >60 HP CONVERSION Am mL/min/1.7 Est GFR Non-Afr >60 >60 HP CONVERSION Am mL/min/1.7 Comment: Normal>60, moderate decrease 30 - 59, se ronaldo decrease 15 - 29, renal failure <15 mL/min/1.73 m2 NOTE: ??Choose the eGFR result above willard ropriate for the race of the patient. Specimen (Source) Anatomical Collection Method Collection Time Re ceived Time Location / / Volume Laterality 01/11/2010 11:41 AM CDT Jaylon Aleman MD LAB_1 Performing Organization Address City/State/ZIP Code Phon e Number HP CONVERSION ALT (SGPT) (01/11/2010 11:41 AM CDT) Patholo gist Method Time Signature Alanine 10 4 - 55 HP CONVERSION Aminotransferase U/L Specimen (Source) Anatomical Collection Method Collection Time Re ceived Time Location / / Volume Laterality 01/11/2010 11:41 AM CDT Jaylon Aleman MD LAB_1 Performing Organization Address City/State/ZIP Code Phon e Number HP CONVERSION documented in this encounter Visit Diagnoses Not on filedocumented in this encounter Care Teams Executive Account Manager Relationship Specialty Start Date End Date Md Homero, PCP - General 11/28/10 03/07/15 [place] [address] documented as of this encounter
--- OUTSIDE RECORDS SUMMARY | 2022-05-17 08:32 | XMS_ITS | Encounter Summary ---
:1985 Author Organization [facility] Address [address] [place] [address] Care Team Providers Name Role Phone Md YOBANI Valentin Primary Care Provider Encounter Details Date Type Department Care Team Description 08/22/2010 PN Conversion Only DIRECTOR OF DONOR RELATIONS 3850 CON[address] Christina Hernadez MD [address] [place] [address] [id number] (Wo rk) Social History Tobacco Use Types Packs/Day Years Used Date Smoking Tobacco: Never Assessed Sex Assigned at Date Recorded Not on file documented as of this encounter Plan of Treatment Upcoming Encounters Date Type Specialty Care Team Description 05/18/2022 Appointment Rheumatology Erasmo Horn MD [address] [facility] [address] (Wo rk) documented as of this encounter Procedures Procedure Name Priority Date/Time Associated Diagnosis Comme nts SURGICAL BYRON ESCOBAR Routine 08/22/2010 6:29 PM Re sults for this [facility] PAEDIATRIC PHYSIOTHERAPIST procedure are i n the results section. documented in this encounter Results Pathology Report (08/22/2010 6:29 PM PAEDIATRIC PHYSIOTHERAPIST) [facility] Method Time Signature Surgical SEE TEXT No normal HP CONVERSION Pathology range Comment: ?Final SURG ICAL PATHOLOGY REPORT Pathology #: [id number] ? Date Obtained: 08/22/2010 ?Date Received: 08/23/2010 DIAGNOSIS: ?Skin, right lateral upper forehead , excision: ? 1. Residual dysplastic nevus iden tified, 0.2 cm from nearest ? lateral margin. ?2. Biopsy site change is identifie d. ?JOANN GAMA MD ? (electronic signature) ? 08/24/2010 ??13:40 CLINICAL NOTES: ? Re-excision atypical nevus ORGAN/TISSUE SITE: ? Right lateral corner 9:00 upper f orehead GROSS DESCRIPTION: ? Received in formalin is a 1.4 x 0 .7 cm irregular antonio-pink ellipse ? of skin excised to a depth of 0.4 cm. The surface of the skin is ? hair-bearing and displays a 0.5 c m pale antonio to pink lesion. The ? skin displays a stitch marked 9:0 0. The 12:00 half is inked blue ? and the 6:00 half is inked black. The skin is step-sectioned and ? entirely submitted in 2 cassettes as follows: Cassette 1, 3:00 ? half; cassette 2, 9:00 half. ? LUNMA MICROSCOPIC DESCRIPTION: ? The microscopic examination subst antiates the diagnosis cited. ?* End of Report Specimen (Source) Anatomical Collection Method Collection Time Re ceived Time Location / / Volume Laterality 08/22/2010 6:29 PM PAEDIATRIC PHYSIOTHERAPIST Christina Hernadez MD LAB_1 Performing Organization Address City/State/ZIP Code Phon e Number HP CONVERSION documented in this encounter Visit Diagnoses Not on filedocumented in this encounter Care Teams Bench Examiner Relationship Specialty Start Date End Date Md Valentin MD PCP - General 11/28/10 03/07/15 [place] [address] documented as of this encounter
--- OUTSIDE RECORDS SUMMARY | 2022-05-17 08:32 | XMS_ITS | Encounter Summary ---
:1985 Author Organization [facility] Address [address] [place] [address] Care Team Providers Name Role Phone Md YOBANI Valentin Primary Care Provider Reason for Visit Reason Comments Other Encounter Details Date Type Department Care Team Description 08/25/2009 Telephone [facility] [address] [facility], Message Other [address] [place] [address] Social History Tobacco Use Types Packs/Day Years Used Date Smoking Tobacco: Never Assessed Sex Assigned at Date Recorded Not on file documented as of this encounter [facility], Message - 08/25/2009 2:22 PM CST Phone Note filed by Famely at 12/16/101999 Author: Famely Service: (none) Author Type: (none) Filed: 12/16/101999 Note Time: 08/25/09 1422 Status: Signed Concert Singer: Famely (Resource) Medication Question Please review question below and advise pharmacy appropriately. Drug Name/Strength:SULFASALAZINE 500MG TAB EC Sig/Quantity:500MG AM ONCE A DAY FOR THE FIRST WEEK THEN 500MG TWICE A DAY SECOND WEEK THEN 1000MG AM AND 500MG PM THE THIRD WEEK THEN 1000MG TWICE A DAY AND STAY AT 1000MG TWICE A DAY Question:IS PLAIN SULFASALAZINE OK, OR DO YOU NEED GENERIC AZULFEDINE ENTABR? Pharmacy Seq #:[phone] Pharmacy [facility]-Phone[facility]Fax [phone]/City:[facility] Clinician Name:MELINA *ECODE~PNRXQ Created on 25Aug2009 2:22pm by SUDHEER ALVAREZ On 25Aug2009 2:33pm DERRICK SUMMERS wrote: Regular Sulfasalazine or Azulfidine is OK. Acknowledged by DERRICK SUMMERS on 2:33pm On 25Aug2009 2:40pm JOSUÉ POST wrote: clarification on medication above called into pharmacy. ER SERVICE REPRESENTATIVE documented in this encounter Plan of Treatment Upcoming Encounters Date Type Specialty Care Team Description 05/18/2022 Appointment [facility]umatology Erasmo Horn MD [address] [facility] [address] (Wo rk) documented as of this encounter Visit Diagnoses Not on filedocumented in this encounter Care Teams Staff Attorney Relationship Specialty Start Date End Date Md Valentin MD PCP - General 11/28/10 03/07/15 [place], [place] [address] documented as of this encounter
--- OUTSIDE RECORDS SUMMARY | 2022-05-17 08:32 | XMS_ITS | Encounter Summary ---
:1985 Author Organization [facility] Address [address] [place] [address] Care Team Providers Name Role Phone Md YOBANI Valentin Primary Care Provider Encounter Details Date Type Department Care Team Description 02/21/2011 Office Visit [facility] 3931 Cordell Crowder MD General Surgery [address] [address] [address] [place] [address] Social History Tobacco Use Types Packs/Day Years Used Date Smoking Tobacco: Never Assessed Sex Assigned at Date Recorded Not on file documented as of this encounter Progress Notes Ignacio Crowder MD - 02/21/2011 12:01 AM CDT Progress Notes signed by Ignacio Crowder MD at 02/23/11806 Author: Ignacio Crowder MD Service: (none) Author Type: Physician Filed: 02/23/11810 Note Time: 02/21/11 0001 Status: Signed Line Cook: Ignacio Crowder MD (Physician) NAME: MANJIT WASHINGTON MR#: [id number] ACCT: [id number] VISIT: [id number] DICTATING CLINICIAN: Ignacio Crowder MD CONFIRM #: [id number] LOC: 225 CLINIC PROGRESS NOTE DATE OF VISIT: 02/21/2011 : 1985 Ms. Washington is a 25-year-old who was previously seen for another melanoma and several nevus excisions, who presents with another lesion that was biopsied by Dr. Patsy Delaney in dermatology. This lesion was on the left lower leg and was read as an atypical melanocytic lesion, possible melanoma of 0.18 mm in thickness. She was sent by Dr. Delaney for a consultation regarding this lesion. PAST MEDICAL HISTORY: All again reviewed on LastWord. MEDICATIONS: All again reviewed on LastWord. ALLERGIES: All again reviewed on LastWord. PHYSICAL EXAM: This is a well-developed, well-nourished female in no acute distress. On the left lower leg in its midportion is a healing shave biopsy site that is about 5 to 6 mm in diameter. There is no obvious residual pigmentation. There is no palpable inguinal lymphadenopathy. No other obvious suspicious skin lesions. ASSESSMENT/PLAN: Ms. Washington is a 25-year-old who presents with a possible melanoma of the left lower leg. We recommend that she undergo wide excision with a 1 cm margin. The procedure, risks and benefits including possibility of bleeding, infection, wound difficulties, cosmetic issues, recurrence of her melanoma were all discussed with the patient. She appeared to understand. All questions were answered. We will schedule this under local anesthesia. Spent 15 minutes with the patient, 12 of which were counseling time. [place]: [place] [address] [place] [address] KM:MEDQ C: CONFIRM #: [id number] documented in this encounter Plan of Treatment Upcoming Encounters Date Type Specialty Care Team Description 05/18/2022 Appointment Rheumatology Erasmo Horn MD [address] [facility] [address] [address] (Wo rk) documented as of this encounter Visit Diagnoses Not on filedocumented in this encounter Care Teams Storage Facility Rental Clerk Relationship Specialty Start Date End Date Md Valentin MD PCP - General 11/28/10 03/07/15 [place], [place] [id number] documented as of this encounter
--- OUTSIDE RECORDS SUMMARY | 2022-05-17 08:32 | XMS_ITS | Encounter Summary ---
:1985 Author Organization [employer] Address [address] [place] [address] Care Team Providers Name Role Phone Md YOBANI Valentin Primary Care Provider Encounter Details Date Type Department Care Team Description 08/22/2010 PN Conversion [place] [address] [place] [address] [place], [place] [id number] (Wo rk) Social History Tobacco Use Types Packs/Day Years Used Date Smoking Tobacco: Never Assessed Sex Assigned at Date Recorded Not on file documented as of this encounter Plan of Treatment Upcoming Encounters Date Type Specialty Care Team Description 05/18/2022 Appointment Rheumatology Erasmo Horn MD [address] [facility] [address] [address] (Wo rk) documented as of this encounter Procedures Procedure Name Priority Date/Time Associated Comments Diagnosis BETA STREP FOLLOWUP Routine 08/22/2010 5:58 PM Re sults for this COMMUNITY HEALTH WORKER procedure are i n the results section. RAPID STREP SCREEN Routine 08/22/2010 5:57 PM Res ults for this WAIVED COMMUNITY HEALTH WORKER procedure are i n the results section. MONONUCLEOSIS SCREEN Routine 08/22/2010 5:44 PM R esults for this COMMUNITY HEALTH WORKER procedure are i n the results section. COMPLETE BLOOD Routine 08/22/2010 5:44 PM Results for this COUNT-W/DIFF COMMUNITY HEALTH WORKER procedure are i n the results section. DIFFERENTIAL Routine 08/22/2010 5:44 PM Results f or this COMMUNITY HEALTH WORKER procedure are i n the results section. documented in this encounter Results Beta Strep Followup (08/22/2010 5:58 PM COMMUNITY HEALTH WORKER) P athologist Signature Strep Screen SEE TEXT HP CONVERSION Comment: CSSNC Culture Strep, Follow up from Rapid Test ? ORDERED BY: HUGO GOLD SOURCE: Throat ? COLLECTED: ??08/22/10 17:58 ? PLATED: ? 08/22/10 17:58 Culture Strep, Follow up from Rapid Test ?? FINAL ? 08/23/10 13:27 No beta hemolytic Strep Group A isolate d. Specimen (Source) Anatomical Collection Method Collection Time Re ceived Time Location / / Volume Laterality 08/22/2010 5:58 PM COMMUNITY HEALTH WORKER Hugo Gold MD LAB_1 Performing Organization Address City/State/ZIP Code Phon e Number HP CONVERSION RAPID STREP SCREEN WAIVED (08/22/2010 5:57 PM COMMUNITY HEALTH WORKER) Analysis Performed At Patho logist Time Signature Rapid Strep SEE TEXT HP CONVERSION Screen Waived Comment: RSSW Rapid Strep Screen Waived ? ORDERED BY: HUGO GOLD SOURCE: Throat ? COLLECTED: ??08/22/10 17:57 ? PLATED: ? 08/22/10 17:58 Rapid Strep Screen Waived ?FINAL ? 08/22/10 18:30 ??Test performed by:Ivone ? Negative for Streptococcus group A Specimen (Source) Anatomical Collection Method Collection Time Re ceived Time Location / / Volume Laterality 08/22/2010 5:57 PM COMMUNITY HEALTH WORKER Hugo Gold MD LAB_1 Performing Organization Address City/[facility] Phon e Number HP CONVERSION MONONUCLEOSIS SCREEN (08/22/2010 5:44 PM COMMUNITY HEALTH WORKER) [facility] Method Time Signature Infectious SEE TEXT HP CONVERSION Mononucleosis Screen Comment: MONO Infectious Mononucleosis ? ORDERED BY: HUGO GOLD SOURCE: Serum, Whole blood, Plasma ? COLLECTED: ??08/22/10 17:44 ? PLATED: ? 08/22/10 17:44 Infectious Mononucleosis ? FINAL ? 08/22/10 17:57 ? Negative Screen for Infectious Mononucleosis Specimen (Source) Anatomical Collection Method Collection Time Re ceived Time Location / / Volume Laterality 08/22/2010 5:44 PM COMMUNITY HEALTH WORKER Hugo Gold MD LAB_1 Performing Organization Address [facility] Phon e Number HP CONVERSION (ABNORMAL) Differential (08/22/2010 5:44 PM COMMUNITY HEALTH WORKER) [facility] Method Time Signature Absolute 8.8 (H) 2.0 - 6.8 HP CONVERSION Neutrophils k/cmm Absolute 1.3 1.0 - 4.0 HP CONVERSION Lymphocytes k/cmm Absolute 0.5 0.2 - 1.0 HP CONVERSION Monocytes k/cmm Absolute 0.1 0.0 - 0.5 HP CONVERSION Eosinophils k/cmm Absolute 0.1 0.0 - 0.2 HP CONVERSION Basophils k/cmm Specimen (Source) Anatomical Collection Method Collection Time Re ceived Time Location / / Volume Laterality 08/22/2010 5:44 PM COMMUNITY HEALTH WORKER Hugo Gold MD LAB_1 Performing Organization Address City/[facility]/ZIP Code Phon e Number HP CONVERSION Hemogram/Plts/Diff (08/22/2010 5:44 PM COMMUNITY HEALTH WORKER) P athologist Signature White Blood Cell 10.8 3.8 - 11.0 HP CONVERSIO N Count k/cmm Red Blood Cell 4.46 3.70 - HP CONVERSION Count 5.20 m/cmm Hemoglobin 13.5 11.8 - HP CONVERSION 15.5 g/dL Hematocrit 39.3 35.0 - HP CONVERSION 46.0 % Mean Corpuscular 87.9 80.0 - HP CONVERSION Volume 100.0 fL RDW 12.4 11.0 - HP CONVERSION 15.0 % Platelet Count 212 140 - 450 HP CONVERSION k/cmm Specimen (Source) Anatomical Collection Method Collection Time Re ceived Time Location / / Volume Laterality 08/22/2010 5:44 PM COMMUNITY HEALTH WORKER Hugo Gold MD LAB_1 Performing Organization Address City/[facility] Phon e Number HP CONVERSION documented in this encounter Visit Diagnoses Not on filedocumented in this encounter Care Teams Field Specialist Relationship Specialty Start Date End Date Md Valentin MD PCP - General 11/28/10 03/07/15 [place] [address] documented as of this encounter
--- OUTSIDE RECORDS SUMMARY | 2022-05-17 08:32 | XMS_ITS | Encounter Summary ---
:1985 Author Organization [facility] Address [address] [place] [address] Care Team Providers Name Role Phone Md YOBANI Valentin Primary Care Provider Encounter Details Date Type Department Care Team Description 10/12/2009 Office Visit [facility] Tavia Corrigan PA-C [address] [place] [address] [place] [address] [phone] (Wo rk) Social History Tobacco Use Types Packs/Day Years Used Date Smoking Tobacco: Never Assessed Sex Assigned at Date Recorded Not on file documented as of this encounter Last Filed Vital Signs Vital Sign Reading Time Taken Comments Blood Pressure 136/82 10/12/2009 1:43 PM GREENHOUSE GROWER Pulse 96 10/12/2009 1:43 PM GREENHOUSE GROWER Temperature 36.2 ??C (97.2 ??F) 10/12/2009 1:43 PM GREENHOUSE GROWER C: 36 .2 C Respiratory Rate - - Oxygen Saturation - - Inhaled Oxygen Concentration - - Weight 62 kg (136 lb 9.6 oz) 10/12/2009 1:43 PM GREENHOUSE GROWER C: 62.0kg Height - - Body Mass Index 24.98 05/27/2009 9:35 AM CDT documented in this encounter Progress Notes Tavia Naik PA-C - 10/12/2009 12:01 AM CST Progress Notes signed by Tavia Alfonso PA-C at 10/12/09 1620 Author: Tavia Alfonso PA-C Service: (none) Author Type: Physician Credentials Specialist Filed: 12/17/102014 Note Time: 10/12/09 0001 Status: Signed Early Childhood Special Educator: Tavia Alfonso PA-C (Resource) Acute Clinic Visit IMPRESSION: Bacterial vaginosis (616.10) SUBJECTIVE: History of Present Illness: Symptom(s): Afebrile. No abdominal pain. No back or flank pain. Frequency. No nausea. Urgency. Increased vaginal discharge. No vomiting. Frequency: Duration: 3 weeks. Severity: Moderate. Symptom Trend: Stable. Urgency: Duration: 3 weeks. Severity: Moderate. Symptom Trend: Stable. Increased vaginal discharge: Duration: Comment(s): 6 months. Severity: Moderate. Symptom Trend: Stable. Pt. is in a monogamous relationship Date of LMP: 09/11/2009 Past Medical History: Current Medications: None Adverse Drug Reactions: Patient's ADR's were reviewed and updated today on the Health Profile screen of the Electronic Medical Record. Chronic Medications: Reviewed and updated today on Health Profile in the Electronic Medical Record. OBJECTIVE: Vital Signs taken today were reviewed on the flowsheet in the Electronic Medical Record. General Appearance: Well-appearing Abdomen: Normoactive bowel sounds, soft, nontender without organomegaly or masses Back: Nontender to palpation and percussion Gynecologic: Large mucopurulent vaginal discharge No unusual odor present Uterus & Adnexae: Uterus and adnexae palpate normally Labs: Normal urinalysis, see lab results in the Electronic Medical Record. Labs: Abnormal wet prep/IZABELA prep, see lab results in the Electronic Medical Record. ASSESSMENT: Bacterial vaginosis (616.10) PLAN: Urine culture Ureaplasma culture taken from the urethra. Medication prescriptions provided: See OP Med list on Health Profile in the Electronic Medical Record. Vaginitis instructions: Reviewed common medication side effects. Take medication as directed. Abstain from sexual activity until after full treatment. Return if symptoms aren't resolved or markedly improved in 48 hours. Return if fever, chills, or worsening pain develop. Follow up with your primary physician in one week for re-evaluation and possible further testing. Patient was given discharge instructions and was discharged in stable condition. *SH~PC~UTI ~Shorthand Note completed on: 10/12/2009 4:20 PM NHOUSE GROWER documented in this encounter Plan of Treatment Upcoming Encounters Date Type Specialty Care Team Description 05/18/2022 Appointment Rheumatology Erasmo Horn MD [address] [facility] [address] (Wo rk) documented as of this encounter Visit Diagnoses Not on filedocumented in this encounter Care Teams Compliance Representative Relationship Specialty Start Date End Date Md Valentin MD PCP - General 11/28/10 03/07/15 [place] [address] documented as of this encounter
--- OUTSIDE RECORDS SUMMARY | 2022-05-17 08:32 | XMS_ITS | Encounter Summary ---
:1985 Author Organization [facility] Address [address] [place] [address] Care Team Providers Name Role Phone Md YOBANI Valentin Primary Care Provider Encounter Details Date Type Department Care Team Description 2010 PN Conversion Only CONVERSION CONVERSION [place] [address] Social History Tobacco Use Types Packs/Day Years Used Date Smoking Tobacco: Never Assessed Sex Assigned at Date Recorded Not on file documented as of this encounter Plan of Treatment Upcoming Encounters Date Type Specialty Care Team Description 05/18/2022 Appointment Rheumatology Erasmo Horn MD [address] [facility] [address] (Wo rk) documented as of this encounter Visit Diagnoses Not on filedocumented in this encounter Care Teams Tax Appraiser Relationship Specialty Start Date End Date Md Valentin MD PCP - General 11/28/10 03/07/15 [place] [address] documented as of this encounter
--- OUTSIDE RECORDS SUMMARY | 2022-05-17 08:32 | XMS_ITS | Encounter Summary ---
:1985 Author Organization [facility] Address [address] [place] [address] Care Team Providers Name Role Phone Md YOBANI Valentin Primary Care Provider Encounter Details Date Type Department Care Team Description 06/28/2009 Nursing Visit [facility] 39[address] Christina Hernadez MD Plastic Surgery [address] [facility] [address] [place] [address] [phone] Social History Tobacco Use Types Packs/Day Years Used Date Smoking Tobacco: Never Assessed Sex Assigned at Date Recorded Not on file documented as of this encounter Progress Notes Theodora Cortez CRNFA - 06/28/2009 12:01 AM CST Progress Notes signed by LAURY Blunt at 06/28/09 1000 Author: LAURY Blunt Service: (none) Author Type: CERTIFIED REGISTERED NURSE MANAGER OF DISASTER RECOVERY Filed: 06/28/09 0000 Note Time: 06/28/09 0001 Status: Signed Solution Maker: LAURY Blunt (Resource) Pt presents today for suture removal following excision of forehead lesion. Sutures removed and benzoin and steri strip applied. Path report, sunscreen and scar gel discussed. SHARPENER documented in this encounter Plan of Treatment Upcoming Encounters Date Type Specialty Care Team Description 05/18/2022 Appointment Rheumatology Erasmo Horn MD [address] [facility] [address] [facility] [id number] (Wo rk) documented as of this encounter Visit Diagnoses Not on filedocumented in this encounter Care Teams Impress Associate Relationship Specialty Start Date End Date Md Valentin MD PCP - General 11/28/10 03/07/15 [place] [address] documented as of this encounter
--- OUTSIDE RECORDS SUMMARY | 2022-05-17 08:32 | XMS_ITS | Encounter Summary ---
:1985 Author Organization [facility] Address [address] [place] [address] Care Team Providers Name Role Phone Md YOBANI Valentin Primary Care Provider Encounter Details Date Type Department Care Team Description 01/11/2010 Office Visit [facility] [place] arvind [place], [address] [facility] [place] [address] [address] [facility] [phone] [facility] N [address] (Wo rk) Social History Tobacco Use Types Packs/Day Years Used Date Smoking Tobacco: Never Assessed Sex Assigned at Date Recorded Not on file documented as of this encounter Last Filed Vital Signs Vital Sign Reading Time Taken Comments Blood Pressure 120/70 01/11/2010 12:20 PM CDT Pulse 88 01/11/2010 12:20 PM CDT Temperature - - Respiratory Rate - - Oxygen Saturation - - Inhaled Oxygen Concentration - - Weight 64 kg (140 lb 15.8 oz) 01/11/2010 12:20 PM CDT C : 64.0kg Height - - Body Mass Index 25.79 05/27/2009 9:35 AM CDT documented in this encounter Progress Notes Jaylon Aleman MD - 01/11/2010 12:01 AM CDT Progress Notes signed by Jaylon Aleman MD at 01/11/10 1230 Author: Jaylon Aleman MD Service: (none) Author Type: Physician Filed: 12/17/10 2229 Note Time: 01/11/10 0001 Status: Signed Licensed Marriage And Family Therapist: Jaylon Aleman MD (Physician) SUBJECTIVE: Follow-up for juvenile rheumatoid arthritis. History of present illness: This is a 5 month follow-up for the patient. She could not tolerate hydroxychloroquine due to stool. We decided to change it to sulfasalazine. She was supposed to increase the dose to 1000 mg twice a day but has only taken 1000 mg am and 500 mg pm. She has tolerated this dose of sulfasalazine quite well. She has not seen a recurrent swelling joint. She feels very well. Past medical history, family and social history, current medications and adverse reactions were updated in EMR. Physical exams: Vital signs per flow sheet. General appearance: A well appearing young female who was not in acute physical distress. Musculoskeletal exams: No significant synovitis or active inflammatory arthritis involving any joints of 4 extremities. Normal gait and normal muscle power and tone. Assessment and plan: 1. Juvenile rheumatoid arthritis. 2. Chronic long-term high-risk medication monitoring. Pain is rated as 5. RAPID 3 score is 6. She has no detectable synovitis and her JRA is under control. I asked the patient to increase the dose of sulfasalazine to 1000 mg twice a day. I will see the patient back in 3 months. The patient will have the blood test monitoring for CBC, ALT and creatinine before the next appointment. Total time is 15 minutes, 8 minutes counseling. *SH~DNS~SOAP documented in this encounter Plan of Treatment Upcoming Encounters Date Type Specialty Care Team Description 05/18/2022 Appointment Rheumatology Erasmo Horn MD [address] [facility] [address] [address] (Wo rk) documented as of this encounter Visit Diagnoses Not on filedocumented in this encounter Care Teams Production Planning Supervisor Relationship Specialty Start Date End Date Md Valentin MD PCP - General 11/28/10 03/07/15 [place], [place] [id number] documented as of this encounter
--- OUTSIDE RECORDS SUMMARY | 2022-05-17 08:32 | XMS_ITS | Encounter Summary ---
:1985 Author Organization [email or web address] Address [address] [place] [address] Care Team Providers Name Role Phone Md YOBANI Valentin Primary Care Provider Encounter Details Date Type Department Care Team Description 07/14/2009 Nursing Visit [facility] 3900 Christina Hernadez MD Plastic Surgery [address] [facility] [address] [place] [address] [id number] [phone] Social History Tobacco Use Types Packs/Day Years Used Date Smoking Tobacco: Never Assessed Sex Assigned at Date Recorded Not on file documented as of this encounter Plan of Treatment Upcoming Encounters Date Type Specialty Care Team Description 05/18/2022 Appointment Rheumatology Erasmo Horn MD [address] [place] [facility] [id number] (Wo rk) documented as of this encounter Visit Diagnoses Not on filedocumented in this encounter Care Teams Trademark Affixer Relationship Specialty Start Date End Date Md Valentin MD PCP - General 11/28/10 03/07/15 [place], [place] [phone] documented as of this encounter
--- OUTSIDE RECORDS SUMMARY | 2022-05-17 08:32 | XMS_ITS | Encounter Summary ---
:1985 Author Organization [facility] Address [address] [place] [address] Care Team Providers Name Role Phone Md YOBANI Valentin Primary Care Provider Encounter Details Date Type Department Care Team Description 08/22/2010 Office Visit [facility] 3900 Christina Hernadez MD Plastic Surgery 5400 [facility] [address] [place] [address] [phone] Social History Tobacco Use Types Packs/Day Years Used Date Smoking Tobacco: Never Assessed Sex Assigned at Date Recorded Not on file documented as of this encounter Progress Notes Christina Hernadez MD - 08/22/2010 12:01 AM CST NAME: MANJIT DOHERTY MR#: [id number] ACCT: [id number] VISIT: [id number] DICTATING CLINICIAN: Christina Hernadez MD CONFIRM #: [id number] LOC: 458 CLINIC PROGRESS NOTE DATE OF VISIT: 08/22/2010 : 1985 Manjit is a patient I have taken care of in the past. She presents now for re- excision of a compound melanocytic lesion with atypical features. Re-excision is advised. The lesion involves the lateral biopsy margins. 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 Complete excision is recommended for a final diagnosis. The patient was seen on July [address] Knox. The lesion was biopsied. A 4-mm excision of a 3-mm lesion. Path is as above. She developed a reaction to bacitracin with the last biopsy and had difficulty with Band-Aids. Other medical allergies are noted in the computer medical record updated. PHYSICAL EXAMINATION: The area is a well-healed scar just to the right of midline. No pigmentation evident. Superior aspect of the forehead just in front of the hairline. ASSESSMENT: Severely atypical nevus requiring re-excision, forehead. PLAN: Manjit and Ramin discussed options. She wished to proceed with excision. The area was marked. A 2-mm margin taken. Total size of lesion 6 x 1 cm. Closured layered repair 1.4 cm. The area was marked, injected with 1% lidocaine with 100,000 epinephrine, excised full thickness as above. Sent to pathology. The wound was closed with 5-0 Monocryl and interrupted 5-0 Prolene. A and D was applied. The patient will take a prescription to fill for Bactroban to apply. A Steri-Strip was placed as a dressing. She was also given a prescription for Tylenol with codeine for pain as needed. Followup next week for suture removal, pathology check. Total time 25 minutes. Consultative time 15. AUG:MEDQ C: CONFIRM #: [id number] IST INFORMATION OFFICER documented in this encounter Plan of Treatment Upcoming Encounters Date Type Specialty Care Team Description 05/18/2022 Appointment Rheumatology Erasmo Horn MD [address] [facility] N [id number] (Wo rk) documented as of this encounter Visit Diagnoses Not on filedocumented in this encounter Care Teams Smoke Jumper Relationship Specialty Start Date End Date Md Valentin MD PCP - General 11/28/10 03/07/15 [place] [address] documented as of this encounter
--- OUTSIDE RECORDS SUMMARY | 2022-05-17 08:32 | XMS_ITS | Encounter Summary ---
:1985 Author Organization [facility] Address [address] [place] [address] Care Team Providers Name Role Phone Md YOBANI Valentin Primary Care Provider Encounter Details Date Type Department Care Team Description 08/22/2010 Office Visit [facility] [place] [id number] [place] [address] [phone] (Wo rk) Social History Tobacco Use Types Packs/Day Years Used Date Smoking Tobacco: Never Assessed Sex Assigned at Date Recorded Not on file documented as of this encounter Last Filed Vital Signs Vital Sign Reading Time Taken Comments Blood Pressure 133/86 08/22/2010 3:37 PM BINGO CHECKER Pulse 117 08/22/2010 3:37 PM BINGO CHECKER Temperature 38.1 ??C (100.6 ??F) 08/22/2010 3:37 PM ORAL C: 38.1 C BINGO CHECKER Respiratory Rate 16 08/22/2010 3:37 PM BINGO CHECKER Oxygen Saturation - - Inhaled Oxygen Concentration - - Weight - - Height - - Body Mass Index - - documented in this encounter Progress Notes Cynthia Morse MD - 08/22/2010 12:01 AM CST NAME: MANJIT DOHERTY MR#: [id number] ACCT: [id number] VISIT: [id number] DICTATING CLINICIAN: Cynthia Morse MD CONFIRM #: [id number] LOC: 520 CLINIC PROGRESS NOTE DATE OF VISIT: 08/22/2010 : 1985 CHIEF COMPLAINT: Low back pain, sore throat. HPI: This pleasant 24-year-old comes in today complaining of not feeling very well. She has been sick starting yesterday, sore throat, ear pain, body aches, fevers, chills. She just had a melanoma removed today at the signing agent. She has also had some low back pain today. No burning upon urination or less frequency of urination. Denies any vaginal discharge. Has had this fever today. Does not have a cough. No injury to her lower back. It does not go down her legs. No change in bowel or bladder function. PAST MEDICAL HISTORY: Melanoma. PAST SURGICAL HISTORY: The melanoma removal. NEUROLOGIC: Reviewed in [employer]. ALLERGIES: Flagyl and bacitracin. SOCIAL HISTORY: Patient is a cigarette smoker. OBJECTIVE: VITAL SIGNS: Blood pressure 1330/86, temperature 985, pulse 117, respirations 16. GENERAL: Alert and oriented, in no apparent distress. Tympanic membranes with no sign of infection. Sinuses are nontender. Oropharynx is pink and moist. Enlarged erythematous tonsils. NECK: Reveals positive cervical adenopathy anteriorly. LUNGS: Clear to auscultation bilaterally. HEART: Regular without murmurs, rubs, or gallops. ABDOMEN: Soft and nontender. EXTREMITIES: Reveal no rash or cyanosis. Strep screen is negative. Monospot is negative. White blood cell count of 10.8, hemoglobin of 13.5, hematocrit 39.3, platelets 212, neutrophils 8.8. ASSESSMENT: Tonsillitis. PLAN: Will start amoxicillin 875 one p.o. b.i.d. x10 days. Rest with ibuprofen and Tylenol. Follow up if symptoms persist or worsen. We will call if the overnight throat culture is positive. If it is negative, she will stop taking the antibiotic unless she is feeling significantly better on the antibiotic. LONNIEM:JIMMIE C: CONFIRM #: [id number] O CHECKER documented in this encounter Plan of Treatment Upcoming Encounters Date Type Specialty Care Team Description 05/18/2022 Appointment Rheumatology Erasmo Horn MD [address] [facility] [phone] (Wo rk) documented as of this encounter Visit Diagnoses Not on filedocumented in this encounter Care Teams Dust Collector Treater Relationship Specialty Start Date End Date Md Valentin MD PCP - General 11/28/10 03/07/15 [facility], [place] [phone] documented as of this encounter
--- OUTSIDE RECORDS SUMMARY | 2022-05-17 08:32 | XMS_ITS | Encounter Summary ---
:1985 Author Organization [employer] Address [address] [place] [address] Care Team Providers Name Role Phone Md YOBANI Valentin Primary Care Provider Encounter Details Date Type Department Care Team Description 08/02/2010 Nursing Visit [facility] [place] [address] [place] [address] [place] [address] [phone] (Wo rk) Social History Tobacco Use Types Packs/Day Years Used Date Smoking Tobacco: Never Assessed Sex Assigned at Date Recorded Not on file documented as of this encounter Plan of Treatment Upcoming Encounters Date Type Specialty Care Team Description 05/18/2022 Appointment Rheumatology Erasmo Horn MD [address] [facility] N [id number] (Wo rk) documented as of this encounter Visit Diagnoses Not on filedocumented in this encounter Care Teams Molding Utility Worker Relationship Specialty Start Date End Date Md Valentin MD PCP - General 11/28/10 03/07/15 [place], [place] [phone] documented as of this encounter
--- OUTSIDE RECORDS SUMMARY | 2022-05-17 08:32 | XMS_ITS | Encounter Summary ---
:1985 Author Organization [facility] Address [address] [place] [address] Care Team Providers Name Role Phone Md YOBANI Valentin Primary Care Provider Encounter Details Date Type Department Care Team Description 08/02/2010 PN Conversion [place] [address] [place] [address] Social History Tobacco Use Types Packs/Day Years Used Date Smoking Tobacco: Never Assessed Sex Assigned at Date Recorded Not on file documented as of this encounter Plan of Treatment Upcoming Encounters Date Type Specialty Care Team Description 05/18/2022 Appointment Rheumatology Erasmo Horn MD [address] [facility] N [id number] (Wo rk) documented as of this encounter Procedures Procedure Name Priority Date/Time Associated Comments Diagnosis SEXUALLY TRANSMITTED Routine 08/02/2010 1:41 PM R esults for this DISEASE PROBE DIRECTOR DATABASE procedure are in the results section. ANATOMICAL PATH Routine 08/02/2010 1:32 PM Result s for this LIQUID BASED DIRECTOR DATABASE procedure are i n the results section. documented in this encounter Results Sexually Transmitted Disease Probe (08/02/2010 1:41 PM DIRECTOR DATABASE) [facility] Method Time Signature Sexually SEE TEXT HP CONVERSION Transmitted Disease Probe Comment: STDPR Sexually Transmitted Disease DNA Probe ? ORDERED BY: DESIRE CARDENAS SOURCE: Endocervical for molecular testi ng COLLECTED: ??08/02/10 13:41 ? PLATED: ? 08/02/10 13:41 Chlamydia trachomatis DNA Probe ?FINAL ? 08/03/10 12:52 Chlamydia trachomatis NEGATIVE by DNA a mplification The amplified DNA assay is cleared by [facility] for non-medicolegal diagnostic testing in [facility] adult population. Neisseria gonorrhea DNA Probe ?FINAL ? 08/03/10 12:52 Neisseria gonorrhea NEGATIVE by DNA amp lification. The amplified DNA assay is cleared by [facility] for non-medicolegal diagnostic testing in [facility] adult population. Specimen (Source) Anatomical Collection Method Collection Time Re ceived Time Location / / Volume Laterality 08/02/2010 1:41 PM DIRECTOR DATABASE Desire Cardenas RN LAB_1 Performing Organization Address City/State/ZIP Code Phon e Number HP CONVERSION Pap Smear (08/02/2010 1:32 PM DIRECTOR DATABASE) athologist Signature Pap Smear SEE TEXT No normal HP CONVERSION range Comment: Final GYNECOLOGICAL CYTOLOGY REPORT Pathology #: [id number] ?Date Obta ined: 08/02/2010 ? Date Received: 08/03/2010 INTERPRETATION/RESULTS: Negative for Intraepithelial Lesion or M alignancy SPECIMEN ADEQUACY: Satisfactory for Evaluation. ??Endocervi karina cells/transformation zone component present. Verified on 08/05/2010 ??by GA SLADE(ASCP) (electronic signature) CLINICAL NOTES: ?LMP: not stated. SPECIMEN TYPE: ? CERVICAL WITH REFLEX TO HPV IF CUS ?* End of Report Specimen (Source) Anatomical Collection Method Collection Time Re ceived Time Location / / Volume Laterality 08/02/2010 1:32 PM DIRECTOR DATABASE Desire Cardenas RN LAB_1 Performing Organization Address City/State/ZIP Code Phon e Number HP CONVERSION documented in this encounter Visit Diagnoses Not on filedocumented in this encounter Care Teams Lithograph Printer Relationship Specialty Start Date End Date Md Valentin MD PCP - General 11/28/10 03/07/15 [place] [address] documented as of this encounter
--- OUTSIDE RECORDS SUMMARY | 2022-05-17 08:32 | XMS_ITS | Encounter Summary ---
:1985 Author Organization [facility] Address [address] [place] [address] Care Team Providers Name Role Phone Md YOBANI Valentin Primary Care Provider Encounter Details Date Type Department Care Team Description 09/02/2009 Procedure Visit [facility] [place] [address] [place] [address] [place] [address] [phone] (Wo rk) Social History Tobacco Use Types Packs/Day Years Used Date Smoking Tobacco: Never Assessed Sex Assigned at Date Recorded Not on file documented as of this encounter Progress Notes Delfina Delaney MD - 09/02/2009 12:01 AM CST Progress Notes signed by Delfina Delaney MD at 09/07/09 1203 Author: Delfina Delaney MD Service: (none) Author Type: Physician Filed: 12/17/10 1919 Note Time: 09/02/09 0001 Status: Signed Manager Knowledge: Delfina Delaney MD (Physician) NAME: MANJIT DOHERTY MR#: [id number] ACCT: [id number] VISIT: [id number] DICTATING CLINICIAN: DELFINA DELANEY MD CONFIRM #: [id number] LOC: 527 CLINIC PROGRESS NOTE DATE OF VISIT: 09/02/2009 SUBJECTIVE: Mnajit is a 23-year-old with a history of thin melanoma 04/2009, 0.39 mm in depth of the left breast. She has also had severely dysplastic nevus on the distal right shoulder and an atypical melanocytic lesion on the left shoulder, fully re-excised by Dr. Crowder. She has had moderately dysplastic nevus re-excised on the left lower forehead by Dr. Christina Hernadez. She has juvenile rheumatoid arthritis. Is on Plaquenil and I think recently started sulfasalazine. I have photos in the chart of 8 moles we are following. My intention today would be to excise a left lateral buttocks/hip area where she has a mole that has irregular fading out erythema around it, mostly brown and could be congenital. Left inner thigh biopsied already and that was a moderately dysplastic nevus. In 05/2009 she had blood work and a chest x-ray, which was perfect, except for the vitamin D being a little bit low, which was 35 on a 1000 IU's. She stopped taking it over Meg, but restarted and will check it in 3 months when she comes back. OBJECTIVE: Full-body exam today, including scalp, face, neck, chest, back, abdomen, buttocks, groin, arms, legs, hands, feet, nails, perirectal, and pubic area. Very easy exam, as she has very few nevi. She has 1 little red mole on the left antecubital fossa that is new that we will follow. It is only about 3 mm in size. She has a compound nevus that is irritating and bothering her at the right eyebrow forehead area that I did a shave biopsy today. She has a mole on the right neck that is a little bit 2 toned in color, and will follow it. I have a photograph already. It does not look worrisome. She has a right lateral buttocks mole that looks congenital and normal. On the left lateral buttock/hip area is a mole that will take out. It is about 1.2 cm in size, brown in the middle, completely junctional and nice light brown in color, but then kind of reddish-brown, very ill-defined pinkness around it irregularly. Then, on the left upper back at the shoulder is a mole that looks like it was a compound nevus at 1 time with dysplastic shoulders with almost fading out. It is above the scar. The one on the left upper shoulder above the scar is one that is absolute pink, kind of a reddish-pink color and almost telangiectatic, looking almost isi when you poke at it. Once it was anesthetized it defined itself a little bit more, and I do think it probably will be severely dysplastic. It is not at all elevated. Then one on the left upper back, closer to the arm in the axilla kind of starting at the axilla area is a mole that looks like a compound nevus that is fading out with a little dysplastic. It does also have that reddish-pink color. These 2 are about 6 mm in size. The one on the buttocks again about 1 to 1.2 cm in size. I think I failed to photograph these nevi, but they definitely have this classic reddish brown kind of inflammatory component to them and they are all junctional, except the 1 on the left lateral back near the axilla has a compound center. ASSESSMENT: Rule out severely dysplastic nevi x3. History of melanoma in situ and a compound nevus in the right glabella area above the eyebrow. PLAN: All 4 were anesthetized with 1% lidocaine with epi at 1:1000, sterilely prepped and draped. She tolerated that well. Technicare used on the forehead. Hibiclens on the body. Elliptically excisions with 3 mm margins outside any color I could see was made down and through the subcutaneous tissue. The left lateral buttocks excision was 4 cm in length about 2 in width. The shoulder ones were 1.5-2 cm in length and 1 cm in width. The mole on the forehead was just a shave of a 5 mm papule. Cauterization was needed for all. Undermining was needed minimally, 5-0 Ethilon was placed simply on all. Pressure dressing with Telfa, bacitracin and then a surgical dressing. She does react to Band-Aids. We are hoping she will not react to that. Told her she could take it off early if necessary and switch to Telfa and paper tape. I will see her in 2 weeks for suture removal or she will see my nurse. I will call her in a week with biopsy diagnosis. I would like to see her back in 3 months for a full-body exam. Encouraged her to lay low the next day or 2 and ice. Motrin for discomfort. VLV:[id number] C: 09/02/09 11:54 CONFIRM #: [id number] FORCED CONCRETE INSPECTOR documented in this encounter Plan of Treatment Upcoming Encounters Date Type Specialty Care Team Description 05/18/2022 Appointment Rheumatology Erasmo Horn MD [address] [facility] [phone] (Wo rk) documented as of this encounter Visit Diagnoses Not on filedocumented in this encounter Care Teams Electrical And Radio Aircraft Mechanic Relationship Specialty Start Date End Date Md Homero, PCP - General 11/28/10 03/07/15 [place], [place] [phone] documented as of this encounter
--- OUTSIDE RECORDS SUMMARY | 2022-05-17 08:32 | XMS_ITS | Encounter Summary ---
:1985 Author Organization [employer] Address [address] [place] [address] Care Team Providers Name Role Phone Md YOBANI Valentin Primary Care Provider Encounter Details Date Type Department Care Team Description 02/07/2011 Nursing Visit [facility] [place] [address] [place] [address] [place] [address] [phone] (Wo rk) Social History Tobacco Use Types Packs/Day Years Used Date Smoking Tobacco: Never Assessed Sex Assigned at Date Recorded Not on file documented as of this encounter Plan of Treatment Upcoming Encounters Date Type Specialty Care Team Description 05/18/2022 Appointment Rheumatology Erasmo Horn MD [address] [facility] N [phone] (Wo rk) documented as of this encounter Visit Diagnoses Not on filedocumented in this encounter Care Teams Inspector Filter Tip Relationship Specialty Start Date End Date Md Valentin MD PCP - General 11/28/10 03/07/15 [place], [place] [phone] documented as of this encounter
--- OUTSIDE RECORDS SUMMARY | 2022-05-17 08:32 | XMS_ITS | Encounter Summary ---
:1985 Author Organization [employer] Address [address] [place] [address] Care Team Providers Name Role Phone Md YOBANI Valentin Primary Care Provider Encounter Details Date Type Department Care Team Description 03/09/2011 Hospital Encounter [facility] Roosevelt Crowder MD Center [address] [facility] [address] [place], [place] [address] [address] [place], [place] [phone] ( Work) [phone] Social History Tobacco Use Types Packs/Day Years Used Date Smoking Tobacco: Never Assessed Sex Assigned at Date Recorded Not on file documented as of this encounter Last Filed Vital Signs Vital Sign Reading Time Taken Comments Blood Pressure - - Pulse - - Temperature - - Respiratory Rate - - Oxygen Saturation - - Inhaled Oxygen Concentration - - Weight 67.6 kg (148 lb 15.8 oz) 03/08/2011 4:09 PM CDT Height 157.5 cm (5' 2.01) 03/08/2011 4:09 PM CDT Body Mass Index 27.24 03/08/2011 4:09 PM CDT documented in this encounter Medications at Time of Discharge Medication Sig Dispensed Refills Start Date End Date cholecalciferol Take 1 tablet by 90 3 01/24/2011 (VITAMIND3) 2000 UNITS mouth daily (every 24 tablet hours). adapalene (AKA DIFFERIN) Apply 1 Application 45 3 08/08/2011 0.1 % gel topically daily (every 24 hours). LW Addl Instr:Apply to clean dry skin 1 hour before bedtimeTWICE A WEEK. Indicated for: Acne desogestrel-ethinyl Take 1 tablet by 84 4 08/09/2010 10/01/2011 estradiol (DESOGEN) mouth daily (every 24 0.15-30 MG-MCG tablet hours). LW Addl Instr:Follow package directions HYDROcodone-acetaminophe Take 1-2 tablets by 15 tablet 0 03/24/2011 n (aka VICODIN,LORTAB) mouth every 4 hours 5-500 MG tablet as needed for Pain. Sulfacetamide Apply 1 Application 28 12/06/2009 Sodium-Sulfur (CLENIA) topically 2 times 10-5 % cream daily. LW Addl Instr:INDICATED FOR ACNE. unknown medication Indications: PN: 0 02/21/2011 03/24/2011 documented as of this encounter Procedure Notes Ignacio Crowder MD - 03/09/2011 12:00 PM CDT Op Note signed by Ignacio Crowder MD at 03/09/11 1524 Author: Ignacio Crowder MD Service: (none) Author Type: Physician Filed: 03/09/11 1524 Note Time: 03/09/11837 Status: Signed Sugar Laboratory Assistant: Ignacio Crowder MD (Physician) NAME: BESSY Basurto MR#: [id number] CSN: [id number] AUTHENTICATING CLINICIAN: Ignacio Crowder MD CONFIRM #: [id number] LOC: 1 OPERATIVE REPORT DATE OF OPERATION: 03/09/2011 : 1985 SURGEON: Ignacio Crowder MD PREOP DIAGNOSIS: Dysplastic nevus possible thin melanoma left lower leg. POSTOP DIAGNOSIS: Dysplastic nevus possible thin melanoma left lower leg. PROCEDURE PERFORMED: A 1 cm margin wide local excision lesion left lower leg with intermediate closure. Excision diameter was 2.5 cm. Incision length was 7 cm. ASSISTANTS: Taylor Mckeon MD Surgery Resident. ANESTHESIA: Local. INDICATIONS: Patient is a 25-year-old who presented with a dysplastic nevus possible thin melanoma 0.18 mm in thickness. Recommended that she undergo wide excision of the lesion with a 1 cm margin. The procedure risks benefits including possibility of bleeding infection wound difficulties discussed with the patient who appeared to understand. All questions were answered. Informed consent was obtained prior to the procedure. PROCEDURE: Patient was brought to the operating room and placed in a supine position upon the operating table. The patient's left lower leg was prepped and draped in a standard sterile fashion. A 1 cm margin was marked out around the previous excisional biopsy scar. An elliptical incision encompassing this margin was then marked on the skin for a total excision diameter and incision length as noted above. The area was then blocked with a combination lidocaine and Marcaine. Incision was made with a scalpel extending down through the subcutaneous tissues down to the level of the muscular fascia. At this level the specimen was removed oriented and sent to Pathology for routine evaluation. Flaps were created medially and laterally to aid in the closure. Subcutaneous tissues were reapproximated with interrupted 3-0 Vicryl and skin was closed with interrupted 3-0 nylon vertical mattress sutures. Dry dressing and Tegaderm was applied. This terminated the procedure. The patient tolerated the procedure well. No complications. She was taken from the operating room to recovery in satisfactory condition. [facility]:DIMPLEQ C: CONFIRM #: [id number] documented in this encounter Miscellaneous Notes Medication History - Cayetano Bahena MD - 03/09/2011 8:57 AM CDT INPATIENT MEDS Encounter Date: 03/03/11 ibuprofen (MOTRIN) tablet 600 mg Start Date:03/09/11, End Date:03/09/11, Frequency:ONCE *No Administrations Recorded HYDROcodone-acetaminophen (VICODIN) 5-500 mg per tablet Start Date:03/09/11, End Date:03/24/11, Frequency:EVERY 4 HOURS PRN *No Administrations Recorded bupivacaine-epinephrine (SENSORCAINE) 0.25 %-1:200,000 injection Start Date:03/09/11, End Date:-, Frequency:- *No Administrations Recorded lidocaine 1% 1 % injection Start Date:03/09/11, End Date:-, Frequency:- *No Administrations Recorded ibuprofen (MOTRIN) 600 mg tablet Start Date:03/09/11, End Date:-, Frequency:- *No Administrations Recorded documented in this encounter Plan of Treatment Upcoming Encounters Date Type Specialty Care Team Description 05/18/2022 Appointment Rheumatology Erasmo Horn MD [address] [place] [address] (Wo rk) documented as of this encounter Procedures Procedure Name Priority Date/Time Associated Diagnosis Comme nts SURGICAL PATH, PARK Routine 03/09/2011 7:00 AM Re sults for this NICOLLET CDT procedure are i n the results section. documented in this encounter Results Pathology Report (03/09/2011 7:00 AM CDT) [facility] gist Method Time Signature Path: ?Final SURGICAL PATHOLOGY REP ORT HP CONVERSION Pathology #: [id number] ? Date Obtained: 03/09/2011 ?Date Received: 03/09/2011 DIAGNOSIS: Skin lesion designated left lower leg, wide re-excision - 1. Minimal stromal changes consistent with prior biopsy. 2. Mild melanocytic hyperplasia. 3. No evidence of residual nevomelanocytic lesion. ?MEAGAN RODRÍGUEZ MD ? (electronic signatur e) ? 03/10/2011 ??14:4 6 CLINICAL NOTES: Nevus ORGAN/TISSUE SITE: Left lower leg lesion wide excision GROSS DESCRIPTION: The specimen is received in formalin, labeled left lower le g, and consists of a 4.2 x 1.5 cm ellipse of antonio-pink skin excised to a depth of 2.0 cm, with a centrally located ulcerative lesion measu ring 0.4 x 0.3 cm. A short stitch is present on one tip of the ellipse marking the superior position, and a long stitch is present on one side of the ellipse marking the lateral position. The short stitch will be designated the 12:00 position (long stitch at 3:00). The sp ecimen is inked black from 12:00-3:00, blue from 3:00-6:00, green fro m 6:00-9:00 and orange from 9:00-12:00. The 12:00 and 6:00 tips are rem nidy and submitted in block 1. The remainder of the ellipse is seria lly sectioned from 12:00 to 6:00 and entirely sequentially subm itted in blocks 2-7. ? WEYAL MICROSCOPIC DESCRIPTION: Microscopic examination performed. CPT Codes: ?56880 x 1 ? End of Report Specimen Anatomical Collection Method Collection Time Receive d Time (Source) Location / / Volume Laterality EXCISION OF SKIN / 03/09/2011 7:00 AM 7:00 Unknown CDT AM CDT Ignacio Crowder MD LAB_1 Performing Organization Address City/State/ZIP Code Phon e Number HP CONVERSION documented in this encounter Visit Diagnoses Not on filedocumented in this encounter Care Teams Mailer Relationship Specialty Start Date End Date Md Valentin MD PCP - General 11/28/10 03/07/15 [place] [address] documented as of this encounter
--- OUTSIDE RECORDS SUMMARY | 2022-05-17 08:32 | XMS_ITS | Encounter Summary ---
:1985 Author Organization [employer] Address [address] [place] [address] Care Team Providers Name Role Phone Md YOBANI Valentin Primary Care Provider Encounter Details Date Type Department Care Team Description 07/25/2010 PN Conversion Only [place] [facility] Delfina Knox, [address] [facility] [place] [address] [address] [facility] [address] [place] [phone] (Wo rk) Social History Tobacco Use Types Packs/Day Years Used Date Smoking Tobacco: Never Assessed Sex Assigned at Date Recorded Not on file documented as of this encounter Plan of Treatment Upcoming Encounters Date Type Specialty Care Team Description 05/18/2022 Appointment Rheumatology Erasmo Horn MD [address] [facility] [address] [address] (Wo rk) documented as of this encounter Procedures Procedure Name Priority Date/Time Associated Diagnosis Comme nts VITAMIN D Routine 07/25/2010 9:31 AM Results f or this 25-HYDROXY, TOTAL TIRE MOLD ENGRAVER procedure are in the results section. WBC, BLOOD Routine 07/25/2010 9:31 AM Results f or this TIRE MOLD ENGRAVER procedure are i n the results section. ALT (SGPT) Routine 07/25/2010 9:31 AM Results f or this TIRE MOLD ENGRAVER procedure are i n the results section. AST Routine 07/25/2010 9:31 AM Results f or this TIRE MOLD ENGRAVER procedure are i n the results section. LD TOTAL (LDH) Routine 07/25/2010 9:31 AM Results for this TIRE MOLD ENGRAVER procedure are i n the results section. CALCIUM Routine 07/25/2010 9:31 AM Results f or this TIRE MOLD ENGRAVER procedure are i n the results section. documented in this encounter Results Calcium (07/25/2010 9:31 AM TIRE MOLD ENGRAVER) athologist Signature Calcium 9.4 8.5 - 10.5 HP CONVERSION mg/dL Specimen (Source) Anatomical Collection Method Collection Time Re ceived Time Location / / Volume Laterality 07/25/2010 9:31 AM TIRE MOLD ENGRAVER Delfina Knox MD LAB_1 Performing Organization Address City/[facility] Code Phon e Number HP CONVERSION (ABNORMAL) Vitamin D 25-Hydroxy, Total (07/25/2010 9:31 AM TIRE MOLD ENGRAVER) athologist Signature Vitamin D 25 26 (L) 30 - 80 HP CONVERSION Oh ng/mL Comment: This assay accurately quantifies the sum of vitamin D3, 25-hydroxy and vitamin D2, 25-hydroxy 0 - 17 years: Deficiency: Less than 20 ng/mL Optimum level: Greater than or equal to 20 ng/mL* *(Raymond CL et al. Pediatrics 2008; 122: 1128-38) 18 years and older: Deficiency: Less than 20 ng/mL Insufficiency: 20 - 29 ng/mL Optimum level: 30 - 80 ng/mL Possible toxicity: Greater than 150 ng/m L Specimen (Source) Anatomical Collection Method Collection Time Re ceived Time Location / / Volume Laterality 07/25/2010 9:31 AM TIRE MOLD ENGRAVER Delfina Knox MD LAB_1 Performing Organization Address City/[facility] Code Phon e Number HP CONVERSION WBC, Blood (07/25/2010 9:31 AM TIRE MOLD ENGRAVER) athologist Signature White Blood 5.3 3.8 - 11.0 HP CONVERSION Cell Count k/cmm Specimen (Source) Anatomical Collection Method Collection Time Re ceived Time Location / / Volume Laterality 07/25/2010 9:31 AM TIRE MOLD ENGRAVER Delfina Knox MD LAB_1 Performing Organization Address City/[facility] Phon e Number HP CONVERSION LD Total (LDH) (07/25/2010 9:31 AM TIRE MOLD ENGRAVER) [facility] gist Method Time Signature Lactic Acid 137 90 - 180 HP CONVERSION Dehydrogenase U/L Specimen (Source) Anatomical Collection Method Collection Time Re ceived Time Location / / Volume Laterality 07/25/2010 9:31 AM TIRE MOLD ENGRAVER Delfina Knox MD LAB_1 Performing Organization Address City/[facility] Code Phon e Number HP CONVERSION AST (07/25/2010 9:31 AM TIRE MOLD ENGRAVER) [facility] gist Method Time Signature Aspartate 10 0 - 45 HP CONVERSION Aminotransferase U/L Specimen (Source) Anatomical Collection Method Collection Time Re ceived Time Location / / Volume Laterality 07/25/2010 9:31 AM TIRE MOLD ENGRAVER Delfina Knox MD LAB_1 Performing Organization Address City/[facility]/ZIP Code Phon e Number HP CONVERSION ALT (SGPT) (07/25/2010 9:31 AM TIRE MOLD ENGRAVER) [facility] gist Method Time Signature Alanine 12 4 - 55 HP CONVERSION Aminotransferase U/L Specimen (Source) Anatomical Collection Method Collection Time Re ceived Time Location / / Volume Laterality 07/25/2010 9:31 AM TIRE MOLD ENGRAVER Delfina Knox MD LAB_1 Performing Organization Address City/[facility] Phon e Number HP CONVERSION documented in this encounter Visit Diagnoses Not on filedocumented in this encounter Care Teams Aircraft Electrician Relationship Specialty Start Date End Date Md Valentin MD PCP - General 11/28/10 03/07/15 [place] [address] documented as of this encounter
--- OUTSIDE RECORDS SUMMARY | 2022-05-17 08:32 | XMS_ITS | Encounter Summary ---
:1985 [facility] Address [address] [place] [address] Care Team Providers Name Role Phone Md YOBANI Valentin Primary Care Provider Encounter Details Date Type Department Care Team Description 08/27/2010 PN Conversion Only [facility] [address] [place] [address] Social History Tobacco Use Types Packs/Day Years Used Date Smoking Tobacco: Never Assessed Sex Assigned at Date Recorded Not on file documented as of this encounter Plan of Treatment Upcoming Encounters Date Type Specialty Care Team Description 05/18/2022 Appointment Rheumatology Erasmo Horn MD [address] [place] [facility] N [phone] (Wo rk) documented as of this encounter Visit Diagnoses Not on filedocumented in this encounter Care Teams Risk Management Internship Relationship Specialty Start Date End Date Md Valentin MD PCP - General 11/28/10 03/07/15 [facility] [place], [place] [id number] documented as of this encounter
--- OUTSIDE RECORDS SUMMARY | 2022-05-17 08:32 | XMS_ITS | Encounter Summary ---
:1985 Author Organization [employer] Address [address] [place] [address] Care Team Providers Name Role Phone Md YOBANI Valentin Primary Care Provider Encounter Details Date Type Department Care Team Description 08/02/2010 Office Visit [place] Desire Cardenas, RN Obstetrics/Gynecolog y [address] [place] [address] Social History Tobacco Use Types Packs/Day Years Used Date Smoking Tobacco: Never Assessed Sex Assigned at Date Recorded Not on file documented as of this encounter Last Filed Vital Signs Vital Sign Reading Time Taken Comments Blood Pressure 120/70 08/02/2010 11:[address] ATTENDANT Pulse - - Temperature - - Respiratory Rate - - Oxygen Saturation - - Inhaled Oxygen Concentration - - Weight 67.6 kg (148 lb 15.8 oz) 08/02/2010 11:14 AM C: 67.6kg [facility] ATTENDANT Height 157.5 cm (5' 2) 08/02/2010 11:14 AM C: 157.5cm [facility] ATTENDANT Body Mass Index 27.25 08/02/2010 11:[address] ATTENDANT documented in this encounter Progress Notes Desire Cardenas, NECKTIE TURNER, HOSIERY LOOPER - 08/02/2010 12:01 AM CST Preventive Exam & Pelvic SUBJECTIVE: Liana is a 24 year old female who presents for a routine preventive physical exam. She has no concerns today. 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 Current Medications: Reviewed today and updated on Health Profile in [facility]. Family History: (First degree family members) Mother alive with hypertension. Father alive with type 2 diabetes. Denies breast, ovarian, or colon cancer. 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 Marital Status: Single Sexual History: Monogamous relationship for the last 2 years. Habits: Tobacco: 1/2 pack per day. Alcohol: Rare Preventive Health Assessment: Peforms self breast exams: Yes Calcium intake: Adequate Exercise: 2 times/week Lipid screen: Normal in 2007 Seatbelts are used. Tetanus immunization: 2005 Review of Systems: With the exception of any items noted above, the remainder of the complete ROS is negative. OBJECTIVE: Vital Signs: BP: 120/70 Weight: 149 pounds Height:62 inches General: Patient alert, in NAD. HEENT: Pupils equal, sclera clear. Oropharynx normal. Neck: Supple, without thyromegaly or mass. CV: RRR without murmurs, rubs or gallops. Resp: Clear to auscultation without crackles, wheezes or distress. Abdomen: Soft, non-tender, without hepatosplenomegaly, masses, or hernias. Breasts: Symmetrical, nontender, without masses or nipple discharge. Lymphatic: No neck, supraclavicular, axillary or groin lymphadenopathy. Lower Extremities: FROM, normal gait without edema, lesions, or deformity. Pelvic: External without lesions. Vagina reveals healthy mucosa with no vaginal or cervical lesions, and no abnormal discharge. Bimanual reveals uterus to be mobile, normal size, shape and consistency. No adenexal masses or tenderness. Rectal: Deferred. Skin: No lesions. Neuro: Motor & sensory function all intact. Psychiatric: Alert & oriented with normal affect and insight. Patient does not appear depressed or anxious. ASSESSMENT: Routine preventive exam. PLAN: Pap smear. Flu vaccine GC/chlamydia Refill of Desogen Offered cholesterol screening, patient declines. Follow-up in 1 year, sooner PRN any concerns. *SH~DNS~PEF IS COURT ATTENDANT documented in this encounter Plan of Treatment Upcoming Encounters Date Type Specialty Care Team Description 05/18/2022 Appointment Rheumatology Erasmo Horn MD [address] [facility] [phone] (Wo rk) documented as of this encounter Visit Diagnoses Not on filedocumented in this encounter Care Teams Novelty Candy Maker Relationship Specialty Start Date End Date Md Valentin MD PCP - General 11/28/10 03/07/15 [place] [address] documented as of this encounter
--- OUTSIDE RECORDS SUMMARY | 2022-05-17 08:32 | XMS_ITS | Encounter Summary ---
:1985 Author Organization [employer] Address [address] [place] [address] Care Team Providers Name Role Phone Md YOBANI Valentin Primary Care Provider Encounter Details Date Type Department Care Team Description 12/20/2009 Nursing Visit [facility] [place] [address] [place] [address] [place] [address] [phone] (Wo rk) Social History Tobacco Use Types Packs/Day Years Used Date Smoking Tobacco: Never Assessed Sex Assigned at Date Recorded Not on file documented as of this encounter Plan of Treatment Upcoming Encounters Date Type Specialty Care Team Description 05/18/2022 Appointment Rheumatology Erasmo Horn MD [address] [facility] N [address] (Wo rk) documented as of this encounter Visit Diagnoses Not on filedocumented in this encounter Care Teams Applied Anthropologist Relationship Specialty Start Date End Date Md Valentin MD PCP - General 11/28/10 03/07/15 [place], [place] [id number] documented as of this encounter
--- OUTSIDE RECORDS SUMMARY | 2022-05-17 08:32 | XMS_ITS | Encounter Summary ---
:1985 Author Organization [email or web address] Address [address] [place] [address] Care Team Providers Name Role Phone Md YOBANI Valentin Primary Care Provider Encounter Details Date Type Department Care Team Description 01/24/2011 Procedure Visit [facility] [place] [address] [place] [address] [place] [address] [phone] (Wo rk) Social History Tobacco Use Types Packs/Day Years Used Date Smoking Tobacco: Never Assessed Sex Assigned at Date Recorded Not on file documented as of this encounter Progress Notes Delfina Knox MD - 01/24/2011 12:01 AM CDT NAME: MANJIT DOHERTY MR#: [id number] ACCT: [id number] VISIT: [id number] DICTATING CLINICIAN: Delfina Knox MD CONFIRM #: [id number] LOC: 527 CLINIC ADDENDUM DATE OF VISIT: 01/24/2011 : 1985 ADDENDUM: Manjit is a 25-year-old. 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 Dr. Enrique Flowers read that at [facility]. Therefore, we can follow that ankle. The color will come back. As long as it stays stable, it is fine to follow. We do need to reexcise. I called Manjit and left a message on her machine and I will see her back in 3 or 4 months. VLV:MEDQ C: CONFIRM #: [id number] Delfina Knox MD - 01/24/2011 12:01 AM CDT Progress Notes signed by Delfina Knox MD at 01/24/11 1238 Author: Delfina Knox MD Service: (none) Author Type: Physician Filed: 01/24/11 1242 Note Time: 01/24/11 0001 Status: Signed Loan Approver: Delfina Knox MD (Physician) NAME: MANJIT DOHERTY MR#: [id number] ACCT: [id number] VISIT: [id number] DICTATING CLINICIAN: Delfina Knox MD CONFIRM #: [id number] LOC: 527 CLINIC PROGRESS NOTE DATE OF VISIT: 01/24/2011 : 1985 Manjit is a 25-year-old history of a melanoma, left breast, 0.39 mm in depth and atypical moles, compound melanocytic lesions with atypical features as well as had a severely dysplastic nevus on the right shoulder, AML of the left shoulder, moderately dysplastic nevus left forehead. Dr. Hernadez just recently re-excised. Calcium was 9.4 in 05/2010, and vitamin D was only 26 in 2009. She is not due for blood work until next fall so will run that level at that time. Chest x-ray was normal in June of 2010. Liver function was normal in June of 2010. She is allergic to bacitracin, bandages, and Flagyl. On review of systems, she has headaches. She was seen in the ER. Had an MRI. It was negative, but she had a low pressure behind the right eye, and she has abdominal pain that sometimes wakes her up. Does not seem to be associated with any food. I think she needs to see an dry yard worker or a family practitioner to be evaluated for both. Her wisdom teeth are coming in and may be crowding a little bit, as well. She went to see another epic trainer between our last appointments, and the back of the left Achilles tendon a mole was shaved off. the path report, and some color is coming back. Will have to know what it was before I know whether I need to go back and re-excise that or not. Full body exam including scalp, face, neck, chest, back, abdomen, buttocks, arms, legs, hands, feet, nails, perirectal, and pubic area. 4 nevi to photograph, 3 to remove. I photographed the Achilles tendon mole, but I did not do anything about that. She will get the path report. She has one on the right abdomen, right chest below the breast that is reddish-pink, slightly elevated, with spread of the color with inflammation around it. It is only about 4 or 5 mm in size. Left low abdomen very ill-defined area that is brand new, pink, could be a brand new compound nevus, but with her history we felt it should be removed, slightly elevated, slightly papillated on the surface but really ill-defined. And then a third mole on the left anterior chapa about midway down the lower leg just left of midline, a little bit more outside than medial as again a kind of pinkish brown mole that just looks inflamed. All three were anesthetized with 1% lidocaine with epi at 1:100,000 sterilely prepped and draped. 6 mm plug biopsies removed them completely with a little bit of margin around them. 5-0 Ethilon stitches placed x2. Wound care instructions given verbally, and I will call her in a week with biopsy diagnosis. There was no lymphadenopathy in the neck, supraclavicular, infraclavicular, nor axillary region VLV:MEDQ C: CONFIRM #: [id number] documented in this encounter Plan of Treatment Upcoming Encounters Date Type Specialty Care Team Description 05/18/2022 Appointment Rheumatology Erasmo Horn MD [address] [facility] [address] (Wo rk) documented as of this encounter Visit Diagnoses Not on filedocumented in this encounter Care Teams Accounting Director Relationship Specialty Start Date End Date Md Valentin MD PCP - General 11/28/10 03/07/15 [place] [address] documented as of this encounter
--- OUTSIDE RECORDS SUMMARY | 2022-05-17 08:32 | XMS_ITS | Encounter Summary ---
:1985 Author [facility] Address [address] [place] [address] Care Team Providers Name Role Phone Md YOBANI Valentin Primary Care Provider Encounter Details Date Type Department Care Team Description 09/02/2009 PN Conversion Only Justin Dermatolo gy Delfina Knox, [address] [facility] [place] [address] [place] [phone] [place], [place] [address] (Wo rk) Social History Tobacco Use Types Packs/Day Years Used Date Smoking Tobacco: Never Assessed Sex Assigned at Date Recorded Not on file documented as of this encounter Plan of Treatment Upcoming Encounters Date Type Specialty Care Team Description 05/18/2022 Appointment Rheumatology Erasmo Horn MD [address] [facility] N [phone] (Wo rk) documented as of this encounter Visit Diagnoses Not on filedocumented in this encounter Care Teams Carbon Sequestration Plant Engineer Relationship Specialty Start Date End Date Md Valentin MD PCP - General 11/28/10 03/07/15 [place], [place] [id number] documented as of this encounter
--- OUTSIDE RECORDS SUMMARY | 2022-05-17 08:33 | XMS_ITS | Encounter Summary ---
:1985 Author Organization [facility] Address [address] [place] [address] Care Team Providers Name Role Phone Md YOBANI Valentin Primary Care Provider Encounter Details Date Type Department Care Team Description 05/27/2009 Office Visit [facility] Rhe[facility]ol arvind Aleman, [address] [facility] [place] [address] [address] [facility] [phone] [facility] N [address] (Wo rk) Social History Tobacco Use Types Packs/Day Years Used Date Smoking Tobacco: Never Assessed Sex Assigned at Date Recorded Not on file documented as of this encounter Last Filed Vital Signs Vital Sign Reading Time Taken Comments Blood Pressure 118/50 05/27/2009 9:35 AM CDT Pulse 82 05/27/2009 9:35 AM CDT Temperature - - Respiratory Rate 16 05/27/2009 9:35 AM CDT Oxygen Saturation - - Inhaled Oxygen Concentration - - Weight 58.5 kg (128 lb 15.9 oz) 05/27/2009 9:35 AM C: 5 8.5kg CDT Height 157.5 cm (5' 2) 05/27/2009 9:35 AM C: 157.5cm CDT Body Mass Index 23.59 05/27/2009 9:35 AM CDT documented in this encounter Progress Notes Jaylon Aleman MD - 05/27/2009 12:01 AM CDT Progress Notes signed by Jaylon Aleman MD at 05/27/09 1019 Author: Jaylon Aleman MD Service: (none) Author Type: Physician Filed: 12/17/10 1655 Note Time: 05/27/09 0001 Status: Signed Visual Display Associate: Jaylon Aleman MD (Physician) SUBJECTIVE: Follow-up for juvenile rheumatoid arthritis. History of present illness: It has been almost a year since I last saw her. She had a flare of juvenile rheumatoid arthritis when he last saw her her. We decided to go back on methotrexate 12.5-mg weekly. I wanted to see her back in 3 months and the patient lost to follow-up. She felt very well and stopped taking methotrexate herself several months ago. In the meantime, she was also diagnosed with dysplastic nevus. She does not want to go back on methotrexate again for fear of having cancer. Left knee swelled approximately a week ago without an explanation. It went away with resting in a few days. She also has experienced right-sided hip pain for the past few weeks. She does not see a swollen joint currently. Past medical history, family and social history, current medications and adverse reactions were updated in EMR. Physical exams: Vital signs per flow sheet. General appearance: A well groomed young female who was not in her acute physical distress. Skin: No rash, tophus, nodules, open-wound ulcers, Raynaud changes, telangiectasia, sclerodermatous and dermatomyositis skin changes, psoriasis, psoriatic nail or anything suggesting vasculitis. Musculoskeletal exams: All 4 extremities were examined. No significant inflammatory arthritis/synovitis/effusion/dactylitis in any joints. Moderate tenderness over the right greater trochanteric bursal area on compression. No limited range of motion slight tenderness over the groins with hip movement. Normal gait, normal muscle power and tone. Assessment and plan: 1. Right greater trochanteric bursitis 2. Chronic juvenile rheumatoid arthritis. Pain is rated as 7.5. RAPID 3 score is 14.2. To my surprise, I did not see any evidence of inflammatory arthritis on examination today despite a complaint of having left knee joint swelling a week ago. I wonder that was related to arthralgia rather than a two inflammatory arthritis. I discussed with the patient and methotrexate associated cancer was based on small case reports and the cause-effect relationship is still unclear. According to the recent guideline published by EULAR, this is safe to be used in the long-term. However, as I could not convince myself that her current symptoms are related to active juvenile rheumatoid arthritis, a less aggressive treatment like Plaquenil or sulfasalazine could be considered. Side effects of both medications were discussed. The importance of having eye examination and blood test monitoring were discussed related to Plaquenil and sulfasalazine respectively. She has decided to go with Plaquenil and a prescription for Plaquenil 400-g a day was prescribed period Her current right hip symptoms are related to greater trochanteric bursitis and not from juvenilerheumatoid arthritis. We discussed about the use of ibuprofen 600 mg 3 times a day for the next 10 days, stretching exercises, icing and possible cortisone injection if this is inadequate. Lastly, I emphasized to her about the compliance with follow-up visits and blood test/eye monitoring. I will see the patient back in 3 months for clinical follow-up. Total time is 25 minutes, 17 minutes counseling. *SH~DNS~SOAP documented in this encounter Plan of Treatment Upcoming Encounters Date Type Specialty Care Team Description 05/18/2022 Appointment Rheumatology Erasmo Horn MD [address] [facility] [phone] (Wo rk) documented as of this encounter Visit Diagnoses Not on filedocumented in this encounter Care Teams Mail Handler Equipment Operator Relationship Specialty Start Date End Date Md Valentin MD PCP - General 11/28/10 03/07/15 [place], [place] [phone] documented as of this encounter
--- OUTSIDE RECORDS SUMMARY | 2022-05-17 08:33 | XMS_ITS | Encounter Summary ---
:1985 [facility] Address [address] [place] [address] Care Team Providers Name Role Phone Md YOBANI Valentin Primary Care Provider Reason for Visit Reason Comments Other Encounter Details Date Type Department Care Team Description 05/06/2009 Telephone [facility] [address] Christina self MD Other Surgery [address] [facility] [address] [place] [place] [phone] (Wo rk) Social History Tobacco Use Types Packs/Day Years Used Date Smoking Tobacco: Never Assessed Sex Assigned at Date Recorded Not on file documented as of this encounter Progress Notes Miguel Ángel Almeida LPN - 05/06/2009 3:49 PM CDT Phone Note filed by Miguel Ángel Almeida LPN at 12/16/10 1110 Author: Miguel Ángel Almeida LPN Service: (none) Author Type: (none) Filed: 12/16/10 1110 Note Time: 05/06/09 1549 Status: Signed Field Artillery Cannoneer: Ciro Ram (Physician) Patient was called and notified of biopsy report done 04-19-[address] Hernadez (see path report dated 05-06-09). Dr Hernadez informed patient that appt was made for her in General Surgery to see Dr Crowder on 05-11-09 at 930 am [facility]-2nd floor. Phone # also given. Patient voices understanding. Was told to call nurses in Plastic Surgery should more questions arise before appt with Dr Crowder. Dr Hernadez will be available by pager if needed. Patient aware of this also. Patient was reached at: [phone] Created on 06May2009 3:49pm by MIGUEL ÁNGEL ALMEIDA Acknowledged by CHRISTINA HERNADEZ on 9:54pm SLINGER documented in this encounter Plan of Treatment Upcoming Encounters Date Type Specialty Care Team Description 05/18/2022 Appointment Rheumatology Erasmo Horn MD [address] [facility] [phone] (Wo rk) documented as of this encounter Visit Diagnoses Not on filedocumented in this encounter Care Teams Medical Oncologist Relationship Specialty Start Date End Date Md Valentin MD PCP - General 11/28/10 03/07/15 [place], [place] [phone] documented as of this encounter
--- OUTSIDE RECORDS SUMMARY | 2022-05-17 08:33 | XMS_ITS | Encounter Summary ---
:1985 Author Organization [facility] Address [address] [place] [address] Care Team Providers Name Role Phone Md YOBANI Valentin Primary Care Provider Encounter Details Date Type Department Care Team Description 05/19/2009 PN Conversion Only CONV GENERAL SURGERY Ignacio Crowder MD [address] [place] [phone] (Wo rk) Social History Tobacco Use Types Packs/Day Years Used Date Smoking Tobacco: Never Assessed Sex Assigned at Date Recorded Not on file documented as of this encounter Plan of Treatment Upcoming Encounters Date Type Specialty Care Team Description 05/18/2022 Appointment Rheumatology Erasmo Horn MD [address] [facility] N [phone] (Wo rk) documented as of this encounter Visit Diagnoses Not on filedocumented in this encounter Care Teams Vegetable I Farmworker Relationship Specialty Start Date End Date Md Valentin MD PCP - General 11/28/10 03/07/15 [place], [place] [phone] documented as of this encounter
--- OUTSIDE RECORDS SUMMARY | 2022-05-17 08:33 | XMS_ITS | Encounter Summary ---
:1985 Author Organization [employer] Address [address] [place] [address] Care Team Providers Name Role Phone Md YOBANI Valentin Primary Care Provider Encounter Details Date Type Department Care Team Description 05/31/2009 PN Conversion Only [facility] N Delfina Knox, [address] [facility] [place] [address] [address] [facility] [address] [place] [phone] (Wo rk) Social History Tobacco Use Types Packs/Day Years Used Date Smoking Tobacco: Never Assessed Sex Assigned at Date Recorded Not on file documented as of this encounter Plan of Treatment Upcoming Encounters Date Type Specialty Care Team Description 05/18/2022 Appointment Rheumatology Erasmo Horn MD [address] [facility] N [phone] (Wo rk) documented as of this encounter Procedures Procedure Name Priority Date/Time Associated Diagnosis Comme nts VITAMIN D 25 OH Routine 05/31/2009 11:02 AM Resul ts for this CDT procedure are i n the results section. WBC, BLOOD Routine 05/31/2009 11:02 AM Results for this CDT procedure are i n the results section. ALT (SGPT) Routine 05/31/2009 11:02 AM Results for this CDT procedure are i n the results section. AST Routine 05/31/2009 11:02 AM Results for this CDT procedure are i n the results section. LD TOTAL (LDH) Routine 05/31/2009 11:02 AM Result s for this CDT procedure are i n the results section. CALCIUM Routine 05/31/2009 11:02 AM Results for this CDT procedure are i n the results section. documented in this encounter Results Calcium (05/31/2009 11:02 AM CDT) athologist Signature Calcium 9.2 8.5 - 10.5 HP CONVERSION mg/dL Specimen (Source) Anatomical Collection Method Collection Time Re ceived Time Location / / Volume Laterality 05/31/2009 11:02 AM CDT Delfina Knox MD LAB_1 Performing Organization Address City/State/ZIP Code Phon e Number HP CONVERSION VITAMIN D 25 OH (05/31/2009 11:02 AM CDT) athologist Signature Vitamin D 25 Oh 35 30 - 80 HP CONVERSION ng/mL Comment: TEST INFORMATION: VITAMIN D, 25-HYDROXY This assay accurately quantifies the sum of vitamin D3, 25-hydroxy and vitamin D2, 25-hydroxy. Deficiency: ??Less than 20 ng/mL Insufficiency: ??20-29 ng/mL Optimum Level: ??30-80 ng/mL Possible Toxicity: ??Greater than 80 ng/ mL Performed at [employer] [address] Specimen (Source) Anatomical Collection Method Collection Time Re ceived Time Location / / Volume Laterality 05/31/2009 11:02 AM CDT Delfina Knox MD LAB_1 Performing Organization Address City/State/ZIP Code Phon e Number HP CONVERSION WBC, Blood (05/31/2009 11:02 AM CDT) athologist Signature White Blood 4.1 3.8 - 11.0 HP CONVERSION Cell Count K/cmm Specimen (Source) Anatomical Collection Method Collection Time Re ceived Time Location / / Volume Laterality 05/31/2009 11:02 AM CDT Delfina Knox MD LAB_1 Performing Organization Address City/State/ZIP Code Phon e Number HP CONVERSION LD Total (LDH) (05/31/2009 11:02 AM CDT) [facility] gist Method Time Signature Lactic Acid 127 90 - 180 HP CONVERSION Dehydrogenase U/L Specimen (Source) Anatomical Collection Method Collection Time Re ceived Time Location / / Volume Laterality 05/31/2009 11:02 AM CDT Delfina Knox MD LAB_1 Performing Organization Address City/[facility]/ZIP Code Phon e Number HP CONVERSION AST (05/31/2009 11:02 AM CDT) [facility] gist Method Time Signature Aspartate 15 0 - 45 HP CONVERSION Aminotransferase U/L Specimen (Source) Anatomical Collection Method Collection Time Re ceived Time Location / / Volume Laterality 05/31/2009 11:02 AM CDT Delfina Knox MD LAB_1 Performing Organization Address City/[facility]/ZIP Code Phon e Number HP CONVERSION ALT (SGPT) (05/31/2009 11:02 AM CDT) [facility] Method Time Signature Alanine 14 4 - 55 HP CONVERSION Aminotransferase U/L Specimen (Source) Anatomical Collection Method Collection Time Re ceived Time Location / / Volume Laterality 05/31/2009 11:02 AM CDT Delfina Knox MD LAB_1 Performing Organization Address City/[facility] Phon e Number HP CONVERSION documented in this encounter Visit Diagnoses Not on filedocumented in this encounter Care Teams Home Attendant Relationship Specialty Start Date End Date Md Valentin MD PCP - General 11/28/10 03/07/15 [place] [address] documented as of this encounter
--- OUTSIDE RECORDS SUMMARY | 2022-05-17 08:33 | XMS_ITS | Encounter Summary ---
:1985 Author Organization [facility] Address [address] [place] [address] Care Team Providers Name Role Phone Md YOBANI Valentin Primary Care Provider Reason for Visit Reason Comments Other Encounter Details Date Type Department Care Team Description 05/19/2009 [facility]phone [facility] Message Other [address] [place] [address] Social History Tobacco Use Types Packs/Day Years Used Date Smoking Tobacco: Never Assessed Sex Assigned at Date Recorded Not on file documented as of this encounter Progress Notes Wyatt Naik PA-C - 05/19/2009 2:54 PM CDT Phone Note filed by Wyatt Souza PA-C at 12/16/10 2989 Author: Wyatt Souza PA-C Service: (none) Author Type: Physician Director Of Field Service Filed: 12/16/10 1216 Note Time: 05/19/09 283 Status: Signed Tetryl Dissolver Operator: Wyatt Souza PA-C (Resource) Biopsy results reviewed with her. Please send appropriate paperwork to Dr Galvez for Mohs removal of the moderately atypical nevus on the forhead. And for excision of a severely atypical nevus of the right shoulder and a severely atypical or evolving melanoma in situ of the left shoulder. Created on 19May2009 2:54pm by WYATT SOUZA On 19May2009 3:07pm MEENA ROBERTS wrote: Paperwork sent to Maulik Leon. Acknowledged by MEENA ROBERTS on 3:07pm ICAL RADIATION TECHNICIAN documented in this encounter Plan of Treatment Upcoming Encounters Date Type Specialty Care Team Description 05/18/2022 Appointment Rheumatology Erasmo Horn MD [address] [facility] [address] (Wo rk) documented as of this encounter Visit Diagnoses Not on filedocumented in this encounter Care Teams Project Control Manager Relationship Specialty Start Date End Date Md Valentin MD PCP - General 11/28/10 03/07/15 [place], [place] [phone] documented as of this encounter
--- OUTSIDE RECORDS SUMMARY | 2022-05-17 08:33 | XMS_ITS | Encounter Summary ---
:1985 Author Organization [facility] Address [address] [place] [address] Care Team Providers Name Role Phone Md YOBANI Valentin Primary Care Provider Encounter Details Date Type Department Care Team Description 06/22/2009 [facility] Visit [facility] [address] Cordell Crowder MD General Surgery [address] [address] [address] [place] [address] Social History Tobacco Use Types Packs/Day Years Used Date Smoking Tobacco: Never Assessed Sex Assigned at Date Recorded Not on file documented as of this encounter Progress Notes Ignacio Crowder MD - 06/22/2009 12:01 AM CDT Progress Notes signed by Ignacio Crowder MD at 06/23/09 0700 Author: Ignacio Crowder MD Service: (none) Author Type: Physician Filed: 12/17/10 1737 Note Time: 06/22/09 0001 Status: Signed Front Desk Lead: Ignacio Crowder MD (Physician) NAME: MANJIT WASHINGTON MR#: [id number] ACCT: [id number] VISIT: [id number] DICTATING CLINICIAN: Ignacio Crowder MD CONFIRM #: [id number] LOC: 225 CLINIC PROGRESS NOTE DATE OF VISIT: 06/22/2009 SUBJECTIVE: Ms. Washington is a 23-year-old who underwent excision of 2 dysplastic nevi from both posterior shoulder areas on 06/07/09. Postoperatively, she has done well. She has no complaints. OBJECTIVE: Her incisions are healing nicely. There is no evidence of infection. She does have a small rash around both areas. The sutures were removed. Benzoin and Steri-Strips applied. ASSESSMENT: PLAN: She will apply hydrocortisone cream to the area as directed and she will continue to follow up with Dermatology. I will see her back on a p.r.n. basis. [facility]:[id number] C: 06/22/09 15:37 CONFIRM #: [id number] documented in this encounter Plan of Treatment Upcoming Encounters Date Type Specialty Care Team Description 05/18/2022 Appointment Rheumatology Erasmo Horn MD [address] [facility] [phone] (Wo rk) documented as of this encounter Visit Diagnoses Not on filedocumented in this encounter Care Teams Mortar Mixer Relationship Specialty Start Date End Date Md Valentin MD PCP - General 11/28/10 03/07/15 [place] [address] documented as of this encounter
--- OUTSIDE RECORDS SUMMARY | 2022-05-17 08:33 | XMS_ITS | Encounter Summary ---
:1985 [facility] Address [address] [facility] [place] [address] Care Team Providers Name Role Phone Md YOBANI Valentin Primary Care Provider Encounter Details Date Type Department Care Team Description 05/11/2009 Office Visit Specialty Center 3931 Cordell Crowder MD General Surgery [address] [place] [address] [address] [place] [address] Social History Tobacco Use Types Packs/Day Years Used Date Smoking Tobacco: Never Assessed Sex Assigned at Date Recorded Not on file documented as of this encounter Last Filed Vital Signs Vital Sign Reading Time Taken Comments Blood Pressure 135/77 05/11/2009 9:41 AM CDT Pulse 87 05/11/2009 9:41 AM CDT Temperature - - Respiratory Rate - - Oxygen Saturation - - Inhaled Oxygen Concentration - - Weight - - Height - - Body Mass Index - - documented in this encounter Progress Notes Ignacio Crowder MD - 05/11/2009 12:01 AM CDT Progress Notes signed by Ignacio Crowder MD at 05/12/09 0737 Author: Ignacio Crowder MD Service: (none) Author Type: Physician Filed: 12/17/10 1629 Note Time: 05/11/09 0001 Status: Signed Shoder Filler: Ignacio Crowder MD (Physician) NAME: MANJIT WASHINGTON MR#: [id number] ACCT: [id number] VISIT: [id number] DICTATING CLINICIAN: Ignacio Crowder MD CONFIRM #: [id number] LOC: 225 CLINIC PROGRESS NOTE DATE OF VISIT: 05/11/2009 SUBJECTIVE: CHIEF COMPLAINT: 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 HISTORY OF PRESENT ILLNESS: Patient is a 23-year-old who had a nevus about 1.5 cm just medial and superior to her left nipple. Originally, an incisional biopsy was obtained, and this showed a dysplastic nevus. She then saw Dr. Christina Hernadez and Plastic Surgery. This was excised with approximately a 2 mm margin, and the pathology was sent to [facility] for their review. This returned as a 0.39 mm thick, Robbin level II melanoma, so this is a T1a N0 M0, stage IA melanoma. She was sent by Dr. Hernadez for a consultation regarding this lesion. PAST MEDICAL HISTORY: Significant for rheumatoid arthritis. MEDICATIONS: She takes no medications. ADR/ALLERGIES: SHE HAS NO KNOWN DRUG ALLERGIES. SOCIAL HISTORY: She smokes less than 1 pack of cigarettes per day and occasionally drinks alcohol. 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 OBJECTIVE: A well-developed, well-nourished female in no acute distress. She has a couple of healing biopsy sites from the recent Dermatology appointment, with pathology pending at those sites. In the left breast area just superior and slightly medial to the nipple-areolar complex is a healing excisional biopsy site, approximately 3.5 cm in length. There is no residual pigmentation. There is no palpable axillary, supra- or infraclavicular cervical lymphadenopathy on either side. I do not see any other obvious suspicious skin lesions. ASSESSMENT: Ms. Washington is a 23-year-old who presents with a thin melanoma of the left breast. She has already had an excision with an approximately [address] Hernadez's note. PLAN: I recommend that she undergo reexcision with another 8 mm margin. The procedure, risks and benefits including possibility of bleeding, infection, wound difficulties, further distortion of the nipple-areolar complex (she already has some distortion per the patient), recurrence of her melanoma were discussed with the patient and her family. They appeared to understand. All questions were answered. We will schedule this next week under local anesthesia. Spent 20 minutes with patient; 15 of which were counseling time. CC: CHRISTINA HERNADEZ MD [facility]:[id number] C: 05/11/09 13:31 CONFIRM #: [id number] documented in this encounter Plan of Treatment Upcoming Encounters Date Type Specialty Care Team Description 05/18/2022 Appointment Rheumatology Erasmo Horn MD [address] [facility] [phone] (Wo rk) documented as of this encounter Visit Diagnoses Not on filedocumented in this encounter Care Teams Vehicle Sales Professional Relationship Specialty Start Date End Date Md Valentin MD PCP - General 11/28/10 03/07/15 [place], [place] [phone] documented as of this encounter
--- OUTSIDE RECORDS SUMMARY | 2022-05-17 08:33 | XMS_ITS | Encounter Summary ---
:1985 Author Organization [facility] Address [address] [place] [address] Care Team Providers Name Role Phone Md YOBANI Valentin Primary Care Provider Encounter Details Date Type Department Care Team Description 05/31/2009 Office Visit [facility] 380 Ladi Galvez MD Dermatology [address] [facility] [address] [place] [address] [place] [address] [phone] Social History Tobacco Use Types Packs/Day Years Used Date Smoking Tobacco: Never Assessed Sex Assigned at Date Recorded Not on file documented as of this encounter Progress Notes Ladi Galvez MD - 06/11/2009 12:01 AM CDT Progress Notes signed by Ladi Galvez MD at 06/11/09 0822 Author: Ladi Galvez MD Service: (none) Author Type: Physician Filed: 12/17/10 1719 Note Time: 06/11/092021 Status: Signed Risk Professional: Ladi Galvez MD (Physician) We were able to coordinate for Dr. Hernadez to perform excision and repair of the dysplastic nevus on Liana's left forehead on 06/22 at 11am on 3rd floor [address]. Pt is aware and agreeable to plan. She already has s/r for the excisions on her shoulders that day as well. CC: KRYSTIAN Marquez Ladi Galvez MD - 05/31/2009 12:01 AM CDT Progress Notes signed by Ladi Galvez MD at 06/06/09 5852 Author: Ladi Galvez MD Service: (none) Author Type: Physician Filed: 12/17/10 8772 Note Time: 05/31/09 0001 Status: Signed Risk Professional: Ladi Galvez MD (Physician) CC: 1. severely dysplastic compound nevus right distal posterior shoulder 2. severely dysplastic compound nevus vs evolving melanoma in-situ within a nevus posterior left shoulder 3. moderately dysplastic compound nevus left lower forehead HPI: 23yo WF sent for consultation by Tavia Alfonso for possible Mohs vs other removal of moderately dysplastic compound nevus of her left lower forehead and for possible excisions of the severely dysplastic nevus on her right distal posterior shoulder and the severely dysplastic nevus vs evolving melanoma in-situ on her posterior left shoulder. The pt recently had a wide excision for a 0.39mm Robbin level II melanoma on her left breast. Per the pt, Dr. Hernadez did the original excision of the left breast before it was known that spot was melanoma and then Dr. Crowder did the wide excision. Dr. Crowder has already scheduled the pt for excision of the two lesions on her shoulders and so the pt tells me she does not need any further plan for those at this time. Pt was under the impression that we could do Mohs micrographic surgery for the dysplastic nevus on her forehead. ROS: no cardiac pacemaker or defibrillator, arrhythmia, diabetes, htn, hepatic or renal dz. no vision changes, HAs, cough, abd pain, hematuria, melena or BRBPR, paresthesia. PMH: Reviewed in [employer]. Notably pt has JRA and was recently switched from methotrexate to plaquenil. She also recently had a wide excision for a 0.39mm Robbin level II melanoma on her left breast. SHe is seeing Dr. Knox today for a full body skin exam. SH: smokes 10 cigarettes/day, occ EtOH use. single. student. lives with her parents. FH: + melanoma in her paternal grandmother Meds: Reviewed in [employer]-- pt recently changed from MTX to plaquenil for her JRA. Allergies: NKDA O: vitals BP 110/70 HR 88 constitutional: AAOx3, WDWN, NAD, calm face: bx site identified and confirmed with pt left forehead chest: wide excision site identified and healing well without any erythema or drainage back, BUE: bx sites identified and confirmed with pt distal posterior right shoulder and posterior left shoulder lymph: no LAD supraclavicular, cervical, left axillary Path reports reviewed with pt A/P: 1. bx-proven moderately dysplastic compound nevus left lower forehead --discussed tx options at length with pt, including benefits and risks of each: no further tx/clinical monitoring, excision with standard 5mm margin --discussed at length that we do not perform Mohs micrographic surgery on dysplastic nevi and explained to pt why and why it would not be the best treatment for such a lesion --pt elected excision with 5mm margins. we did discuss trying to minimize her visits/combine visits as pt has been through quite a lot in the last couple months. I also discussed the possibility of either performing the excision and repair myself or in trying to coordinate an appointment for one of her suture removals with an appt with Dr. Hernadez for excision and repair of this lesion --I contacted Dr. Hernadez and will speak with her once she is back in town the week of June 07 to see if we can work something out for this pt to have excision and repair done by her --incase that does not work out, we scheduled excision and repair with me for Jul 02 --pt in agreement with this plan 2. bx proven severely dysplastic compound nevus distal posterior right shoulder --pt has excision already scheduled with Dr. Crowder for June 07 3. bx proven severely dysplastic compound nevus vs evolving melanoma in-situ posterior left shoulder --pt has excision already scheduled with Dr. Crowder for June 07 4. Recent h/o melanoma stage 1a 0.39mm Robbin level II left breast s/p wide excision --healing well --pt has appt for full body skin exam with Dr. Mccray today --dx discussed at length --ABCDE's of melanoma reviewed --sun precautions reviewed, encouraged --sunscreen use with broad-spectrum SPF 30 or higher reviewed, encouraged F/U 07/02 for excision of forehead lesion with me unless we are able to get pt an appt with Dr. Hernadez for excision and repair sooner/to coordinate with one of her other appts. Pt has a s/r appt already scheduled for 06/22 and she'll be at [facility] for excisions on 06/07. I will be in touch with pt after speaking with Dr. Hernadez next week. CC: KRYSTIAN Marquez and Christina Hernadez M.D. documented in this encounter Plan of Treatment Upcoming Encounters Date Type Specialty Care Team Description 05/18/2022 Appointment Rheumatology Erasmo Horn MD [address] [facility] [place] [address] (Wo rk) documented as of this encounter Procedures Procedure Name Priority Date/Time Associated Diagnosis Comme nts XR CHEST 2 VIEWS Routine 05/31/2009 10:47 AM Resu lts for this CDT procedure are i n the results section. documented in this encounter Results XR Chest 2 Views (05/31/2009 10:47 AM CDT) Anatomical Region Laterality Modality Chest, Lung Other Specimen (Source) Anatomical Location Collection Method / Collectio n Time Received Time / Laterality Volume Impressions 05/31/2009 10:47 AM CDT : ??Negative PA and left lateral chest. Dictating KI DEVINE RADIOLOGIST Narrative 05/31/2009 10:47 AM CDT COMPARISON: ??06/24/2008 FINDINGS: ??Two views were obtained. ??T he lungs and costophrenic angles are clear. ??Heart size and pulmo nary vascularity are within normal limits. ??There is no evidence of pneumothorax or pleural effusion. Procedure Note Ki Campa MD - 02/11/2016 COMPARISON: 06/24/2008 FINDINGS: Two views were obtained. The l ungs and costophrenic angles are clear. Heart size and pulmona ry vascularity are within normal limits. There is no evidence of p neumothorax or pleural effusion. IMPRESSION : Negative PA and left lateral chest. Dictating KI DEVINE RADIOLOGIST Delfina Knox MD RAD GD documented in this encounter Visit Diagnoses Not on filedocumented in this encounter Care Teams Turf Keeper Relationship Specialty Start Date End Date Md Valentin MD PCP - General 11/28/10 03/07/15 [place] [address] documented as of this encounter
--- OUTSIDE RECORDS SUMMARY | 2022-05-17 08:33 | XMS_ITS | Encounter Summary ---
:1985 [facility] Organization [facility] Address [address] [place] [address] Care Team Providers Name Role Phone Md YOBANI Valentin Primary Care Provider Encounter Details Date Type Department Care Team Description 06/22/2009 Procedure Visit [facility] [address] Christina Hernadez MD Plastic Surgery [address] [facility] [address] [place] [address] [phone] Social History Tobacco Use Types Packs/Day Years Used Date Smoking Tobacco: Never Assessed Sex Assigned at Date Recorded Not on file documented as of this encounter Progress Notes Christina Hernadez MD - 06/22/2009 12:01 AM CDT Progress Notes signed by Christina Hernadez MD at 06/30/09 0934 Author: Christina Hernadez MD Service: (none) Author Type: Physician Filed: 12/17/10 1737 Note Time: 06/22/09 0001 Status: Signed Speech Coach: Christina Hernadez MD (Physician) NAME: MANJIT DOHERTY MR#: [id number] ACCT: [id number] VISIT: [id number] DICTATING CLINICIAN: CHRISTINA HERNADEZ MD CONFIRM #: [id number] LOC: 458 CLINIC PROGRESS NOTE DATE OF VISIT: 06/22/2009 SUBJECTIVE: Manjit is here for excision of a moderately dysplastic nevus, left lower forehead. She has been seen by Dr. Galvez in dermatology with regard to this, and was referred here for excision. Dr. Knox is her hat parts cutter machine. Biopsy of area done by Tavia Alfonso on 05/06/09. Pathology read as moderately dysplastic nevus. Recommend complete excision. Dr. Galvez has recommended a 5 mm excision. I discussed with both Dr. Galvez and Dr. Knox today their recommendations for excision, and we have collectively settled on a 2 to 3 mm margin. It will be sent back to Dermatopathology for review. Discussed this at length with Manjit, and she wishes to proceed. Because of the location, there may be some temporary elevation of her brow and some temporary numbness superior to the incision line. I would expect both to resolve with time. OBJECTIVE: The lesion is 5 mm. Marked with a 2 to 3 mm margin. Total 1 cm. Elliptical excision planned for closure in relaxed skin tension lines. Area was injected with 1% lidocaine, 1:100,000 epinephrine under sterile technique. It was excised full thickness elliptically. Total length of closure 2.5 cm. Closure with undermining, predominantly superiorly, to allow for closure and to minimize elevation of the brow. Complex repair performed with 5-0 Monocryl and pullout 5-0 Prolene. Steri-Strips applied. ASSESSMENT: PLAN: Tolerated the procedure without issue. She does not have any pain medication, and would like some. Her Vicodin was represcribed. Return next week for suture removal, pathology check, scar management techniques. Note the biopsy size was still fairly red, and she was questioning if this remains red and proliferative what can be done. We discussed potential V-beam treatment. We will assess once the final pathology has returned. Of note, the specimen was tagged medially, which would be the 9 o'clock position. LENARD:[id number] C: 06/23/09 05:27 CONFIRM #: [id number] [employer] documented in this encounter Plan of Treatment Upcoming Encounters Date Type Specialty Care Team Description 05/18/2022 Appointment Rheumatology Erasmo Horn [facility] [address] [facility] [address] (Wo rk) documented as of this encounter Visit Diagnoses Not on filedocumented in this encounter Care Teams Photostatic Copy Maker Relationship Specialty Start Date End Date Md Valentin MD PCP - General 11/28/10 03/07/15 [place] [facility] [place] [address] documented as of this encounter
--- OUTSIDE RECORDS SUMMARY | 2022-05-17 08:33 | XMS_ITS | Encounter Summary ---
:1985 Author Organization [facility] Address [address] [place] [address] Care Team Providers Name Role Phone Unavailable Primary Care Provider Unavailable Encounter Details Date Type Department Care Team Description 06/07/2009 Hospital Encounter CONV [facility]DS Ignacio Crowder MD [address] [place], [place] [id number] [address] Ignacio Crowder MD [address] [place], [place] [id number] [place] [address] Social History Tobacco Use Types Packs/Day Years Used Date Smoking Tobacco: Never Assessed Sex Assigned at Date Recorded Not on file documented as of this encounter Medications at Time of Discharge Medication Sig Dispensed Refills Start Date End Date desogestrel-ethinyl Take 1 tablet by mouth 84 4 03/2808/09/2010 estradiol (DESOGEN) daily (every 24 0.15-30 MG-MCG tablet hours). LW Addl Instr:Follow package directions desogestrel-ethinyl Take 1 tablet by mouth 84 4 04/2908/09/2010 estradiol (DESOGEN) daily (every 24 0.15-30 MG-MCG tablet hours). LW Addl Instr:Follow package directions HYDROcodone-acetaminoph Take 1-2 tablets by 15 0 07/200908/24/2009 en (VICODIN) 5-500 MG mouth every 4 hours as tablet needed. unknown medication Indications: PN: 0 06/01/2009 08/22/2010 unknown medication Indications: PN: 0 05/31/2009 08/22/2010 unknown medication Indications: PN: 0 05/27/2009 08/22/2010 unknown medication Indications: PN: 0 05/27/2009 08/22/2010 unknown medication Indications: PN: 0 05/06/2009 08/22/2010 unknown medication Indications: PN: 0 04/19/2009 08/22/2010 unknown medication Indications: PN: 0 04/15/2009 08/22/2010 unknown medication Indications: PN: 0 04/15/2009 08/22/2010 unknown medication Indications: PN: 0 03/01/2009 08/22/2010 unknown medication Indications: PN: 0 02/22/2009 08/22/2010 unknown medication Indications: PN: 0 02/15/2009 08/22/2010 unknown medication Indications: PN: 0 02/10/2009 08/22/2010 unknown medication Indications: PN: 0 02/04/2009 08/22/2010 unknown medication Indications: PN: 0 11/16/2008 08/22/2010 unknown medication Indications: PN: 0 11/04/2008 08/22/2010 unknown medication Indications: PN: 0 08/28/2008 08/22/2010 unknown medication Indications: PN: 0 06/30/2008 08/22/2010 unknown medication Indications: PN: 0 06/24/2008 08/22/2010 unknown medication Indications: PN: 0 06/04/2008 08/22/2010 unknown medication Take 1 tablet by 84 3 05/26/2008 08/22/2010 mouth. unknown medication Indications: PN: 0 05/26/2008 08/22/2010 unknown medication Indications: PN: 0 04/28/2008 08/22/2010 unknown medication Indications: PN: 0 04/28/2008 08/22/2010 unknown medication Indications: PN: 0 01/23/2007 08/22/2010 unknown medication Indications: PN: 0 10/12/2006 08/22/2010 unknown medication Indications: PN: 0 08/21/2006 08/22/2010 unknown medication Indications: PN: 0 03/26/2006 08/22/2010 unknown medication Indications: PN: 0 02/20/2006 08/22/2010 unknown medication Indications: PN: 0 02/20/2006 08/22/2010 unknown medication Indications: PN: 0 01/24/2006 08/22/2010 unknown medication Indications: PN: 0 12/19/2005 08/22/2010 unknown medication Indications: PN: 0 12/19/2005 08/22/2010 unknown medication Indications: PN: 0 10/26/2005 08/22/2010 unknown medication Indications: PN: 0 10/24/2005 08/22/2010 unknown medication Indications: PN: 0 10/24/2005 08/22/2010 unknown medication Indications: PN: 0 09/07/2005 08/22/2010 unknown medication Indications: PN: 0 08/22/2005 08/22/2010 unknown medication Indications: PN: 0 08/22/2005 08/22/2010 unknown medication Indications: PN: 0 07/04/2005 08/22/2010 unknown medication Indications: PN: 0 04/17/2005 08/22/2010 documented as of this encounter Procedure Notes Ignacio Crowder MD - 06/07/2009 12:01 AM CDT OR Surgeon signed by Ignacio Crowder MD at 06/08/09921 Author: Ignacio Crowder MD Service: (none) Author Type: Physician Filed: 12/17/10 1712 Note Time: 06/07/09912 Status: Signed Employment Programs Analyst: Ignacio Crowder MD (Physician) NAME: MANJIT DOHERTY MR#: [id number] ACCT: [id number] AUTHENTICATING CLINICIAN: Ignacio Crowder MD CONFIRM #: [id number] LOC: 1 OPERATIVE REPORT DATE OF OPERATION: 06/07/09 INDICATIONS FOR PROCEDURE: The patient is a 23-year-old who presented with 2 dysplastic nevi. It was recommended by the topographical field assistant that she undergo 5 mm margin excisions. The procedure risks and benefits including possibility of bleeding, infection, wound difficulties were discussed with the patient who appeared to understand. All questions answered. Informed consent was obtained prior to procedure. PREOPERATIVE DIAGNOSIS: Dysplastic nevi, both posterior shoulders. POSTOPERATIVE DIAGNOSIS: Dysplastic nevi, both posterior shoulders. PROCEDURE PERFORMED: 1. 0.5 cm margin wide local excision dysplastic nevus, left posterior shoulder with intermediate closure. Excision diameter was 2 cm, incision length was 4.5 cm. 2. Wide local excision dysplastic nevus right posterior shoulder with intermediate closure. Excision diameter was 2 cm, incision length was 4.5 cm. SURGEON: Ignacio Crowder MD. SURGEON: Austin Maxwell MD, surgery resident. ANESTHESIA: Local. FINDINGS: DESCRIPTION OF OPERATION: Patient was brought to the operating room, placed in a prone position upon the operating table. Both posterior shoulder areas were prepped and draped in standard sterile fashion. A 5 mm margin was marked out around both lesions. Elliptical incisions encompassing this margin along the skin tension lines were then marked on the skin for a total excision diameter and incision length as noted above. Both areas were blocked with combination lidocaine and Marcaine. Incision was made with scalpel, extending down through the subcutaneous tissues using electrocautery. Dissection continued into the deep subcutaneous fat. Dysplastic nevus was removed and oriented and sent to Pathology for routine evaluation on both sides. Flaps were created superiorly and inferiorly to aid in the closure. Subcutaneous tissues reapproximated with interrupted 3-0 Vicryl. Skin was closed with 3-0 nylon vertical mattress sutures. Dry dressing and Tegaderm were applied to both incisions. This terminated procedure. The patient tolerated procedure well with no complications. She was taken from the operating room to Recovery in satisfactory condition. [facility]:[id number] C: 06/08/09 05:50 CONFIRM #: [id number] documented in this encounter Miscellaneous Notes Miscellaneous - Ignacio Crowder MD - 06/07/2009 12:01 AM CDT ICD-9-CM ICD-9-CM Narrative description Code ======== DIAGNOSES Principal: BENIGN AIDEE SKIN ARM 216.6 PROCEDURES Provider1 Date Principal: RADICAL EXCIS SKIN IGNACIO DOS SANTOS [id number] 86.4 Provider2: Provider3: Secondary: RADICAL EXCIS SKIN IGNACIO DOS SANTOS [id number] 86.4 Provider2: Provider3: documented in this encounter Plan of Treatment Upcoming Encounters Date Type Specialty Care Team Description 05/18/2022 Appointment Rheumatology Erasmo Horn MD [address] [place] [address] (Wo rk) documented as of this encounter Procedures Procedure Name Priority Date/Time Associated Diagnosis Comme nts SURGICAL PATH, PARK Routine 06/07/2009 10:28 AM R esults for this NICOLLET CDT procedure are i n the results section. documented in this encounter Results Pathology Report (06/07/2009 10:28 AM CDT) [facility] gist Method Time Signature Surgical SEE TEXT No normal HP CONVERSION Pathology range Comment: Patient: MANJIT DOHERTY ?S URGICAL PATHOLOGY REPORT Pathology # ??[id number] ?Date Obtained: ? Date Received: DIAGNOSIS: A) ??Skin and subcutaneous tissue, left shoulder, re-excision: ?1. Dermal fibroblastic proliferati on and histologic changes consistent ? with healing reaction from yung or biopsy. ?2. No residual nevomelanocytic les ion identified. B) ??Skin and subcutaneous tissue, right shoulder, re-excision: ?1. Dermal fibrohistiocytic prolife ration and histologic changes consistent ? with healing reaction from yung or biopsy. ?2. No residual nevomelanocytic pro liferation identified. ?RJose Alberot Rodriguez M.D. ?(electronic signature) RPW/RPW/cjk Date of Report: 06/08/09 Pathology # ??[id number] ?Date Obtained: ? Date Received: ORGAN/TISSUE SITE: ?Wide excision skin lesion left prem ulder/Wide excision skin lesion right ?shoulder GROSS DESCRIPTION: A) ??The specimen is received in [facility], labeled lesion left shoulder and ?consists of a 3.6 x 1.5 cm ellipse of antonio skin excised to a depth of 1.2 ?cm with a centrally located antonio-pi nk ulcerated lesion measuring 1.0 x 0.8 ?cm. ??The lesion grossly comes to within 0.5 cm from the nearest resection ?margin. ??There is a short stitch on one side of the ellipse marking the ?superior margin and a long stitch on one tip of the ellipse marking the ?lateral margin. The short stitch w ill be designated the 12:00 position ?(long stitch at 9:00). ??The speci men is inked black from 12:00 to 3:00, ?blue from 3:00 to 6:00, green from 6:00 to 9:00 and orange from 9:00 to ?12:00. ??The 3:00 and 9:00 tips ar e removed and submitted in cassette #1. ?The remainder of the ellipse is se rially sectioned from 3:00 to 9:00 and ?entirely sequentially submitted in cassettes A2 through A5. B) ??The specimen is received in [facility], labeled right shoulder skin lesion ?and consists of a 3.3 x 1.5 cm ell ipse of antonio skin excised to a depth of ?1.0 cm with a centrally located ta n-white ulcerated lesion measuring 1.0 x ?0.8 cm. ??The lesion grossly comes to within 0.4 cm from the nearest ?resection margin. ??There is a prem rt stitch on one tip of the ellipse ?marking the superior margin and a long stitch on one side of the ellipse ?marking the lateral margin. ??The short stitch will be designated the 12:00 ?position (long stitch at 3:00). Th e specimen is inked black from 12:00 to ?3:00, blue from 3:00 to 6:00, gree n from 6:00 to 9:00 and orange from 9:00 ?to 12:00. ??The 12:00 and 6:00 tip s are removed and submitted in cassette ?B1. ??The remainder of the ellipse is serially sectioned from 12:00 to 6:00 ?and entirely sequentially submitte d in cassettes B2 through B5. AMW/amf MICROSCOPIC DESCRIPTION: A) ??The paraffin sections show skin and subcutaneous tissue, in which there is ?a central zone of healing reaction from a prior biopsy, which presents as ?a well-demarcated zone of fibrohis tiocytic proliferation involving the ?papillary and superficial reticula r dermis, with a zone of ?re-epithelialization and central s pongiosis and hyperkeratosis overlying ?the dermal reparative changes. No residual melanocytic theques are ?identified in this re-excisional b iopsy material. The peripheral biopsy ?margins exhibit no diagnostic abno rmality. B) ??These sections also include skin an d subcutaneous tissue with a central ?zone of healing reaction from a pr ior biopsy, which also presents as a ?localized collection of fibrohisti ocytic proliferation involving the ?papillary and superficial reticula r dermis, with changes of ?re-epithelialization over the cent ral portion of the biopsy. No residual ?melanocytic aggregates are identif ied in the dermis or epidermis in this ?re-excisional sample. The biopsy m argins show no diagnostic abnormality. Specimen (Source) Anatomical Collection Method Collection Time Re ceived Time Location / / Volume Laterality 06/07/2009 10:28 AM CDT Ignacio Crowder MD LAB_1 Performing Organization Address City/State/ZIP Code Phon e Number HP CONVERSION documented in this encounter Visit Diagnoses Not on filedocumented in this encounter
--- OUTSIDE RECORDS SUMMARY | 2022-05-17 08:33 | XMS_ITS | Encounter Summary ---
:1985 Author Organization [facility] Address [address] [place] [address] Care Team Providers Name Role Phone Md YOBANI Valentin Primary Care Provider Reason for Visit Reason Comments Other Encounter Details Date Type Department Care Team Description 05/24/2009 Telephone Specialty Center 3931 General Summer Bella RN Other Surgery 3931 [facility] [address] [place], [place] [id number] Social History Tobacco Use Types Packs/Day Years Used Date Smoking Tobacco: Never Assessed Sex Assigned at Date Recorded Not on file documented as of this encounter Progress Notes Christi Bella RN - 05/24/2009 10:37 AM CDT Phone Note filed by Christi Bella RN at 12/16/10 2248 Author: Chritsi Bella RN Service: (none) Author Type: Registered Nurse Filed: 12/16/10 1234 Note Time: 05/24/09 1037 Status: Signed Second Baker: Christi Bella RN (Registered Nurse) Post op call attempted. Left message for pt. to call. Created on 24May2009 10:37am by CHRISTI BELLA PAINTER documented in this encounter Plan of Treatment Upcoming Encounters Date Type Specialty Care Team Description 05/18/2022 Appointment Rheumatology Erasmo Horn MD [address] [place] [facility] [id number] (Wo rk) documented as of this encounter Visit Diagnoses Not on filedocumented in this encounter Care Teams International Controller Relationship Specialty Start Date End Date Md Valentin MD PCP - General 11/28/10 03/07/15 [place] [address] documented as of this encounter
--- OUTSIDE RECORDS SUMMARY | 2022-05-17 08:33 | XMS_ITS | Encounter Summary ---
:1985 Author [facility] Address [address] [place] [address] Care Team Providers Name Role Phone Md YOBANI Valentin Primary Care Provider Encounter Details Date Type Department Care Team Description 05/31/2009 Procedure Visit [place] [address] [facility] [address] [place] [address] [place] [address] [phone] (Wo rk) Social History Tobacco Use Types Packs/Day Years Used Date Smoking Tobacco: Never Assessed Sex Assigned at Date Recorded Not on file documented as of this encounter Progress Notes Delfina Delaney MD - 05/31/2009 12:01 AM CDT Progress Notes signed by Delfina Delaney MD at 06/01/09 1008 Author: Delfina Delaney MD Service: (none) Author Type: Physician Filed: 12/17/10 1700 Note Time: 05/31/09 0001 Status: Signed Margin Clerk: Delfina Delaney MD (Physician) NAME: MANJIT DOHERTY MR#: [id number] ACCT: [id number] VISIT: [id number] DICTATING CLINICIAN: DELFINA DELANEY MD CONFIRM #: [id number] LOC: 527 CLINIC PROGRESS NOTE DATE OF VISIT: 05/31/2009 SUBJECTIVE: Manjit is a 23-year-old here for full-body exam after a diagnosis of a superficial spreading malignant melanoma, Robbin level II, 0.3 9 mm in depth of the left breast followed by a severely dysplastic nevus, distal right shoulder, that was deeply shave biopsied and needs to be reexcised, as well as an atypical melanocytic lesion, left shoulder, that was deeply shave biopsied and needs to be reexcised with 5 mm margins, and a compound nevus with moderate atypia on the left lower forehead that will be reexcised. Dr. Galvez will do the forehead; Dr. Crowder will be doing the shoulders. The breast was already reexcised by Dr. Crowder, taken care of. She has not had baseline chest x-ray or blood work. 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 Dad's side of the family has had a history of malignant melanoma, but not her dad himself. 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 Path is all in the chart. OBJECTIVE: Full-body exam today, including scalp, face, neck, chest, back, abdomen, buttocks, groin, arms, legs, hands, feet, nails, perirectal, and pubic area: Petite blonde with fair skin. Tanning bed antonio still fading with early new mole at the 's peak that is light brown in color. Her boyfriend, Aly, pointed it out. I think we can safely follow. She has a shave biopsy scar on the left forehead that Dr. Galvez we will do a reexcision on. She has shave biopsy scars on both shoulders that Dr. Crowder is going to do reexcisions tomorrow on. She has middle back mole under the bra strap that is compound, exophytic, and pink, but fine. She has a medium brown light fadey mole on the middle upper back that I photographed that is fine. She has a mole on the right side of the neck that I believe are 2 moles sitting side by side, 1 elevated and skin-colored, 1 a little bit browner and flat. She has a mole on the right lateral cheek that is light brown I photographed that we can follow. She has a mole on the left lateral buttocks/hip area that I think I will want to excise next appointment. It is a little bit fading out and spread out about 1 cm. Will schedule a full excision in a couple months, and on the right lateral buttocks/hip area, she has a light chocolate brown mole that I think she has had from , congenital. It is not at all worrisome. It is not at all variable. She has no perirectal, genitalia nevi. She has a mole on the left inner thigh that I took out today, and it very likely will be severely dysplastic or worse. It is brown around the periphery, a little shaggy with a pink elevated papule within it, juicy-looking, and the whole mole is about 5 mm in size. Easy removed completely with a 6 mm plug, but no margins around it, but certainly all of it was removed, just 1 mm or 2 of margin around it. Feet are clear. Toes are clear. Maybe 1 light brown freckle mole on right 2nd toe. No lymphadenopathy in the groin, axillary, supraclavicular, infraclavicular, or neck region despite the recent surgery on the left breast. Her scar on the left breast is starting to heal nicely, and nothing there is seen. ASSESSMENT: History of recent melanoma with severely dysplastic nevi. Rule out severely dysplastic nevi. PLAN: Baseline chest x-ray, blood work, excision on this left mole, left thigh, and a vitamin D. Recommend she start 1000, but I may change that depending on her vitamin D status. I will call her in a week with all of this. I can leave a message on her [phone] phone, and I will see her back in a couple of months in a 45-minute appointment, as I plan to excise the left hip nevus at that time. VLV:[id number] C: 05/31/09 14:32 CONFIRM #: [id number] documented in this encounter Plan of Treatment Upcoming Encounters Date Type Specialty Care Team Description 05/18/2022 Appointment Rheumatology Erasmo Horn MD [address] [place] [facility] [address] (Wo rk) documented as of this encounter Visit Diagnoses Not on filedocumented in this encounter Care Teams Debrander Relationship Specialty Start Date End Date Md Valentin MD PCP - General 11/28/10 03/07/15 [place] [address] documented as of this encounter
--- OUTSIDE RECORDS SUMMARY | 2022-05-17 08:33 | XMS_ITS | Encounter Summary ---
:1985 Author Organization [facility] Address [address] [place] [address] Care Team Providers Name Role Phone Md YOBANI Valentin Primary Care Provider Encounter Details Date Type Department Care Team Description 06/07/2009 PN Conversion Only CONV GENERAL SURGERY Ignacio Crowder MD [address] [place] [phone] (Wo rk) Social History Tobacco Use Types Packs/Day Years Used Date Smoking Tobacco: Never Assessed Sex Assigned at Date Recorded Not on file documented as of this encounter Plan of Treatment Upcoming Encounters Date Type Specialty Care Team Description 05/18/2022 Appointment Rheumatology Erasmo Horn MD [address] [facility] N [phone] (Wo rk) documented as of this encounter Visit Diagnoses Not on filedocumented in this encounter Care Teams Sports Team Manager Relationship Specialty Start Date End Date Md Valentin MD PCP - General 11/28/10 03/07/15 [place], [place] [phone] documented as of this encounter
--- OUTSIDE RECORDS SUMMARY | 2022-05-17 08:33 | XMS_ITS | Encounter Summary ---
:1985 Author Organization [facility] Address [address] [place] [address] Care Team Providers Name Role Phone Unavailable Primary Care Provider Unavailable Encounter Details Date Type Department Care Team Description 05/19/2009 Hospital Encounter CONV [facility] Ignacio Crowder MD [address] [place] [address] Ignacio Crowder MD [address] [place], [place] [phone] [place] [address] Social History Tobacco Use Types Packs/Day Years [...] tablet hours). LW Addl Instr:Follow package directions unknown medication Indications: PN: 0 05/06/2009 08/22/2010 [...] encounter Procedure Notes Ignacio Crowder MD - 05/19/2009 12:01 AM CDT OR Surgeon signed by Ignacio Crowder MD at 05/20/09 0857 Author: Ignacio Crowder MD Service: (none) Author Type: Physician Filed: 12/17/10 0621 Note Time: 05/19/09 1020 Status: Signed Tile Grinder: Ignacio Crowder MD (Physician) NAME: MANJIT DOHERTY MR#: [id number] ACCT: [id number] AUTHENTICATING CLINICIAN: Ignacio Crowder MD CONFIRM #: [id number] LOC: 1 OPERATIVE REPORT DATE OF OPERATION: 05/19/09 INDICATIONS FOR PROCEDURE: The patient is a 23-year-old who presented with a 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 She had previously had an approximately 2 mm margin excision, so we re-excised this to a 1 cm margin. The procedure risks and benefits, including possibility of bleeding, infection, wound difficulties, recurrence of the melanoma, nipple distortion or paresthesias discussed with patient. Appeared to understand, all questions answered. Informed consent was obtained prior to the procedure. PREOPERATIVE DIAGNOSIS: 0.39 mm thick melanoma, ? breast. POSTOPERATIVE DIAGNOSIS: 0.39 mm thick melanoma, ? breast. PROCEDURE PERFORMED: 1 cm margin wide local excision melanoma, ? breast, with intermediate closure. Excision diameter was 2 cm, incision length was 6 cm. SURGEON: Ignacio Crowder MD ANESTHESIA: Local. FINDINGS: DESCRIPTION OF OPERATION: Patient was brought to the operating room, placed in supine position upon the operating table. The patient's ? breast area was prepped and draped in standard sterile fashion. An approximately 8 mm margin was marked out around the patient's previous excisional biopsy scar. Elliptical incision encompassing this margin was then marked out on the skin for total excision diameter and incision length as noted above. The area was then blocked with a combination of lidocaine and Marcaine. Incision was made with scalpel, extending down through the subcutaneous tissues using electrocautery. Dissection continued to approximately the level of the superficial breast tissue with the subcutaneous fat. At this level specimen was removed, oriented and sent to Pathology for routine evaluation. Flaps were created superiorly and inferiorly to aid in the closure. Subcutaneous tissues reapproximated with interrupted 3-0 Vicryl. Skin was closed with 4-0 Monocryl subcuticular stitch. Benzoin, Steri-Strips, dry sterile dressing and Tegaderm were applied. This terminated the procedure. The patient tolerated the procedure well, no complications. She was taken from the operating room to recovery in satisfactory condition. KMH:[id number] C: 05/19/09 12:16 CONFIRM #: [id number] documented in this encounter Miscellaneous Notes Miscellaneous - Ignacio Crowder MD - 05/19/2009 12:01 AM CDT ICD-9-CM ICD-9-CM Narrative description Code ======== DIAGNOSES Principal: MALIG MELANOMA TRUNK 172.5 PROCEDURES Provider1 Date Principal: LOCAL EXCIS BREAST LES IGNACIO CROWDER [id number] 85.21 Provider2: Provider3: documented in this encounter Plan of Treatment Upcoming Encounters Date Type Specialty Care Team Description 05/18/2022 Appointment Rheumatology Erasmo Horn MD [address] [facility] [place] [address] (Wo rk) documented as of this encounter Procedures Procedure Name Priority Date/Time Associated Diagnosis Comme nts SURGICAL PATHBYRON Routine 05/19/2009 12:06 PM R esults for this NICOLLET CDT procedure are i n the results section. documented in this encounter Results Pathology Report (05/19/2009 12:06 PM CDT) [facility] gist Method Time Signature Surgical SEE TEXT No normal HP CONVERSION Pathology range Comment: Patient: MANJIT DOHERTY ?S URGICAL PATHOLOGY REPORT Pathology # ??[id number] ?Date Obtained: ? Date Received: DIAGNOSIS: ?Skin lesion designated left breast , wide re-excision: ?1. Stromal changes consistent with previous biopsy. ?2. Mild melanocytic hyperplasia. ?3. No evidence of invasive or in s itu melanoma. ?Elmo Reddy MD ?(electronic signature) MDM/MDM/kjs Date of Report: 05/20/09 Pathology # ??[id number] ?Date Obtained: ? Date Received: ORGAN/TISSUE SITE: ?Left breast GROSS DESCRIPTION: ?The specimen is received in formal in labeled 8 mm wide excision melanoma, ?left breast, and consists of 3.5 x 1.0 cm ellipse of antonio-pink skin excised ?to a depth of 1.6 cm with a centra lly located well healed longitudinal ?scar measuring 2.0 cm in length x 0.3 cm in width. ??There is a short ?stitch on one side of the ellipse marking the superior position, and a ?long stitch on the tip of the ricco pse marking the lateral position. ??The ?short stitch will be designated th e 12:00 position (long stitch at ?3:00). ??The specimen is inked celi ck from 12:00 to 3:00; blue from 3:00 to ?6:00; green from 6:00 to 9:00, and orange from 9:00 to 12:00. ??The 3:00 ?and 9:00 tips are removed and subm itted in cassette #1. ??The remainder of ?the ellipse is serially sectioned from 3:00 to 9:00 and entirely submitted ?in cassettes 2 through 5. AMW/kmr MICROSCOPIC DESCRIPTION: ?Microscopic examination performed. Specimen (Source) Anatomical Collection Method Collection Time Re ceived Time Location / / Volume Laterality 05/19/2009 12:06 PM CDT Ignacio Crowder MD LAB_1 Performing Organization Address City/State/ZIP Code Phon e Number HP CONVERSION documented in this encounter Visit Diagnoses Not on filedocumented in this encounter
--- OUTSIDE RECORDS SUMMARY | 2022-05-17 08:33 | XMS_ITS | Encounter Summary ---
:1985 Author Organization [facility] Address [address] [place] [address] Care Team Providers Name Role Phone Md YOBANI Valentin Primary Care Provider Encounter Details Date Type Department Care Team Description 06/14/2009 Nursing Visit [facility] [place] [address] [place] [address] [place] [address] [phone] (Wo rk) Social History Tobacco Use Types Packs/Day Years Used Date Smoking Tobacco: Never Assessed Sex Assigned at Date Recorded Not on file documented as of this encounter Plan of Treatment Upcoming Encounters Date Type Specialty Care Team Description 05/18/2022 Appointment Rheumatology Erasmo Horn MD [address] [facility] N [phone] (Wo rk) documented as of this encounter Visit Diagnoses Not on filedocumented in this encounter Care Teams Starter Mechanic Relationship Specialty Start Date End Date Md Valentin MD PCP - General 11/28/10 03/07/15 [place], [place] [phone] documented as of this encounter
--- OUTSIDE RECORDS SUMMARY | 2022-05-17 08:33 | XMS_ITS | Encounter Summary ---
:1985 Author Organization [facility] Address [address] [place] [address] Care Team Providers Name Role Phone Md YOBANI Valentin Primary Care Provider Reason for Visit Reason Comments Other Encounter Details Date Type Department Care Team Description 06/15/2009 Telephone [facility] Delfina Georges MD Other [address] [place] [address] [place], [place] [phone] (Wo rk) Social History Tobacco Use Types Packs/Day Years Used Date Smoking Tobacco: Never Assessed Sex Assigned at Date Recorded Not on file documented as of this encounter Progress Notes Tim Hicks RN - 06/15/2009 5:06 PM CDT Phone Note filed by Tim Hicks RN at 12/16/10 0312 Author: Tim Hicks RN Service: (none) Author Type: (none) Filed: 12/16/101428 Note Time: 06/15/09 170 Status: Signed Assessment Director: Ciro Conversion (Physician) MESSAGE TO CARE TEAM NAME OF CALLER:Liana NAME OF CLINICIAN: MESSAGE:Had suture removal yesterday from her inner thigh and steri strips applied.. During the night, the wound opened and has bled off and on since then. Will apply a pressure bandage overnight and will wait for your call in the AM for further advice.Plese call CALL BACK PHONE OR CELL PHONE:[phone] BEST TIME TO CALL BACK:Wed AM Created on 15Jun2009 5:06pm by TIM HICKS On 16Jun2009 8:15am DELFINA DELANEY wrote: [phone].discussed with pt - better today and keeping covered. reassured it will heal. vvr Acknowledged by DELFINA DELANEY on 8:15am MACEUTICAL ANALYST documented in this encounter Plan of Treatment Upcoming Encounters Date Type Specialty Care Team Description 05/18/2022 Appointment Rheumatology Erasmo Horn MD [address] [facility] N [address] (Wo rk) documented as of this encounter Visit Diagnoses Not on filedocumented in this encounter Care Teams Ice Skating Teacher Relationship Specialty Start Date End Date Md Valentin MD PCP - General 11/28/10 03/07/15 [place], [place] [phone] documented as of this encounter
--- OUTSIDE RECORDS SUMMARY | 2022-05-17 08:33 | XMS_ITS | Encounter Summary ---
:1985 Author Organization [facility] Address [address] [place] [address] Care Team Providers Name Role Phone Md YOBANI Valentin Primary Care Provider Encounter Details Date Type Department Care Team Description 05/06/2009 PN Conversion Only [facility] [address] , Dermatology [address] [place] [address] [phone] (Wo rk) Social History Tobacco Use Types Packs/Day Years Used Date Smoking Tobacco: Never Assessed Sex Assigned at Date Recorded Not on file documented as of this encounter Plan of Treatment Upcoming Encounters Date Type Specialty Care Team Description 05/18/2022 Appointment Rheumatology Erasmo Horn MD [address] [facility] N [address] (Wo rk) documented as of this encounter Visit Diagnoses Not on filedocumented in this encounter Care Teams Clerical Secretary Relationship Specialty Start Date End Date Md Valentin MD PCP - General 11/28/10 03/07/15 [place] [address] documented as of this encounter
--- OUTSIDE RECORDS SUMMARY | 2022-05-17 08:33 | XMS_ITS | Encounter Summary ---
:1985 Author Organization [employer] Address [address] [place] [address] Care Team Providers Name Role Phone Md YOBANI Valentin Primary Care Provider Encounter Details Date Type Department Care Team Description 05/31/2009 PN Conversion Only [facility] Delfina Martinez, [address] [facility] [place] [address] [address] [phone] [place], [place] [address] (Wo rk) Social History Tobacco Use Types Packs/Day Years Used Date Smoking Tobacco: Never Assessed Sex Assigned at Date Recorded Not on file documented as of this encounter Last Filed Vital Signs Vital Sign Reading Time Taken Comments Blood Pressure 110/70 05/31/2009 8:44 AM CDT Pulse 88 05/31/2009 8:44 AM CDT Temperature - - Respiratory Rate - - Oxygen Saturation - - Inhaled Oxygen Concentration - - Weight - - Height - - Body Mass Index - - documented in this encounter Plan of Treatment Upcoming Encounters Date Type Specialty Care Team Description 05/18/2022 Appointment Rheumatology Erasmo Horn MD [address] N [phone] (Nilo gomez) documented as of this encounter Visit Diagnoses Not on filedocumented in this encounter Care Teams Research Quality Assurance Specialist Relationship Specialty Start Date End Date Md Valentin MD PCP - General 11/28/10 03/07/15 [place] [address] documented as of this encounter
--- OUTSIDE RECORDS SUMMARY | 2022-05-17 08:33 | XMS_ITS | Encounter Summary ---
:1985 Author Organization [facility] Address [address] [place] [address] Care Team Providers Name Role Phone Md YOBANI Valentin Primary Care Provider Encounter Details Date Type Department Care Team Description 06/01/2009 Office Visit Special[facility] [address] Cord[address] Crowder MD General Surgery [address] [place] [address] [address] [place] [address] Social History Tobacco Use Types Packs/Day Years Used Date Smoking Tobacco: Never Assessed Sex Assigned at Date Recorded Not on file documented as of this encounter Progress Notes Ignacio Crowder MD - 06/01/2009 12:01 AM CDT Progress Notes signed by Ignacio Crowder MD at 06/02/09 0646 Author: Ignacio Crowder MD Service: (none) Author Type: Physician Filed: 12/17/10 1702 Note Time: 06/01/09 0001 Status: Signed Industrial Relations Counselor: Ignacio Crowder MD (Physician) NAME: MANJIT WASHINGTON MR#: [id number] ACCT: [id number] VISIT: [id number] DICTATING CLINICIAN: Ignacio Crowder MD CONFIRM #: [id number] LOC: 225 CLINIC PROGRESS NOTE DATE OF VISIT: 06/01/2009 SUBJECTIVE: Ms. Washington is a 23-year-old who underwent wide excision of a thin melanoma of the left breast area on 05/19/09. Postoperatively, she has done well. She has no complaints. Her incision is healing nicely. There is no evidence of infection. She also, in the meantime, has had 2 lesions biopsied on the posterior left and posterior right shoulders. 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 It was recommended that she undergo 5 mm margin excisions. These are scheduled for next Sunday under local anesthesia. Again, the procedure risks and benefits, including possibility of bleeding, infection, wound difficulties were discussed with the patient and her boyfriend who appeared to understand. All questions answered. She will continue to follow up with Dr. Delfina Knox in Dermatology also. OBJECTIVE: ASSESSMENT: PLAN: [facility]:[id number] C: 06/01/09 13:47 CONFIRM #: [id number] documented in this encounter Plan of Treatment Upcoming Encounters Date Type Specialty Care Team Description 05/18/2022 Appointment Rheumatology Erasmo Horn MD [address] [facility] [address] (Wo rk) documented as of this encounter Visit Diagnoses Not on filedocumented in this encounter Care Teams Cad Cam Programmer Relationship Specialty Start Date End Date Md Valentin MD PCP - General 11/28/10 03/07/15 [place], [place] [phone] documented as of this encounter
--- OUTSIDE RECORDS SUMMARY | 2022-05-17 08:34 | XMS_ITS | Encounter Summary ---
:1985 [facility] Address [address] [place] [address] Care Team Providers Name Role Phone Md YOBANI Valentin Primary Care Provider Encounter Details Date Type Department Care Team Description 02/15/2009 Office Visit [facility] Natanael Prery DPM [facility] [address] [facility] [address] [place], [place] [address] [place] [address] [phone] Social History Tobacco Use Types Packs/Day Years Used Date Smoking Tobacco: Never Assessed Sex Assigned at Date Recorded Not on file documented as of this encounter Progress Notes Dominik Perry DPM - 02/15/2009 12:01 AM CDT Progress Notes signed by Dominik Perry DPM at 02/15/09 1242 Author: Dominik Perry DPM Service: (none) Author Type: Physician Filed: 12/17/10 1424 Note Time: 02/15/09 0001 Status: Signed Aircraft Powerplant Repairer: Dominik Perry DPM (Resource) NAME: MANJIT DOHERTY MR#: [id number] ACCT: [id number] VISIT: [id number] DICTATING CLINICIAN: Dominik Perry DPM CONFIRM #: [id number] LOC: 539 CLINIC PROGRESS NOTE DATE OF VISIT: 02/15/2009 SUBJECTIVE: Patient presents for initial clinic visit. She was seen in Urgent Care 11 days ago for right foot pain. She states that one month prior to the Urgent Care visit she was sitting with her right foot underneath her body, when she stood up she felt a pop and had pain ever since that time. She does not recall any bruising. She states that she did see some swelling initially. She does have pain when she first gets up out of bed in the morning. X-rays were obtained at that visit. Because of her level of pain she was placed into a CAM walker. She states that when she wears the CAM walker she does not have any discomfort but without the CAM walker she does have some pain. ADR/ALLERGIES: SHE DENIES ALLERGIES TO MEDICATIONS. MEDICATIONS: Reviewed and updated in LastWord. PAST MEDICAL HISTORY: Reviewed in LastWord and is consistent for juvenile rheumatoid arthritis. REVIEW OF SYSTEMS: Negative for fever, rash, burning or tingling in the lower extremities. 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 OBJECTIVE: A 23-year-old female who appears her stated age. She is alert and oriented, and in no acute distress. She does walk without a limp and presents today in regular shoes. She states her CAM walker is in the car. DP and PT pulses are palpable. Hair growth is present on the digits. Capillary filling time is less than two seconds. Sensation is intact. There is no ecchymosis or swelling identified. There is no weakness with muscle testing of the foot, ankle or lower leg. No pain with subtalar joint or ankle joint range of motion. In stance, slight loss of longitudinal arch is evident. She does point to the lateral aspect of the right foot as the source of her pain. She does have pain along the peroneal tendons and at the insertion on the base of the 5th metatarsal. When I have her plantar flex the first ray there is good strength. She does have some pain laterally. Eversion of the foot against resistance does show good strength, however, there is some discomfort. There is actually slight discomfort over the sinus tarsi, but no pain with range of motion of the subtalar joint. Review of the x-rays taken 11 days ago fails to show any obvious abnormality. ASSESSMENT: Peroneal tendinitis with lateral right foot pain. PLAN: Treatment options were discussed with the patient. Her pain had been there one month prior to the Urgent Care visit, so I do not feel that this is a stress fracture issue. It is unclear why she should not be improved with the 11 days of the CAM walker. I would like her to do some icing and I did review her chart and she has been on low dose Aleve along with the methotrexate. I will have her take 1 Aleve in the morning and 1 Aleve in the evening for the next week. I will also have her ice the area for 10 minutes once a day. If there is no change in his symptoms then I would like to consider an MRI before considering physical therapy. All questions were answered. Follow up with me in one week. ALP:[id number] C: 02/15/09 12:27 CONFIRM #: [id number] documented in this encounter Plan of Treatment Upcoming Encounters Date Type Specialty Care Team Description 05/18/2022 Appointment Rheumatology Erasmo Horn MD [address] [facility] [id number] (Wo rk) documented as of this encounter Visit Diagnoses Not on filedocumented in this encounter Care Teams Test Fixture Designer Relationship Specialty Start Date End Date Md Valentin MD PCP - General 11/28/10 03/07/15 [place], [place] [id number] documented as of this encounter
--- OUTSIDE RECORDS SUMMARY | 2022-05-17 08:34 | XMS_ITS | Encounter Summary ---
:1985 Author Organization [facility] Address [address] [place] [address] Care Team Providers Name Role Phone Md YOBANI Valentin Primary Care Provider Encounter Details Date Type Department Care Team Description 04/19/2009 PN Conversion Only [facility] [address] , Dermatology [address] [place] [address] [phone] (Wo rk) Social History Tobacco Use Types Packs/Day Years Used Date Smoking Tobacco: Never Assessed Sex Assigned at Date Recorded Not on file documented as of this encounter Plan of Treatment Upcoming Encounters Date Type Specialty Care Team Description 05/18/2022 Appointment Rheumatology Erasmo Horn MD [address] [facility] N [address] (Wo rk) documented as of this encounter Visit Diagnoses Not on filedocumented in this encounter Care Teams Shop Estimator Relationship Specialty Start Date End Date Md Valentin MD PCP - General 11/28/10 03/07/15 [place] [address] documented as of this encounter
--- OUTSIDE RECORDS SUMMARY | 2022-05-17 08:34 | XMS_ITS | Encounter Summary ---
:1985 Author Organization [email or web address] Address [address] [place] [address] Care Team Providers Name Role Phone Md YOBANI Valentin Primary Care Provider Encounter Details Date Type Department Care Team Description 04/19/2009 PN Conversion Only [facility] CON[facility] Christina Hernadez MD [address] [place] [address] (Wo rk) Social History Tobacco Use Types Packs/Day Years Used Date Smoking Tobacco: Never Assessed Sex Assigned at Date Recorded Not on file documented as of this encounter Plan of Treatment Upcoming Encounters Date Type Specialty Care Team Description 05/18/2022 Appointment Rheumatology Erasmo Horn MD [address] [facility] N [address] (Wo rk) documented as of this encounter Procedures Procedure Name Priority Date/Time Associated Diagnosis Comme nts DERM PATH-DPF Routine 04/19/2009 1:44 PM Results for this CDT procedure are i n the results section . documented in this encounter Results DERM PATH-DPF (04/19/2009 1:44 PM CDT) [employer] gist Method Time Signature Dermatopathology SEE TEXT No normal HP CONVERSION Final Report range Comment: Patient: LIANA DOHERTY ?D ERMATOPATHOLOGY Pathology # [id number] ?Date Obtained: ? Date Received: DIAGNOSIS: ?Superficial spreading malignant me lanoma (Robbin's level II; Breslow's ?thickness 0.39 mm) arising in a co mpound nevus, skin, left breast. (See ?comment) Comment: ?The above microscopic description and above diagnosis is the diagnostic ?report of an outside expert consul Dr. Maylin velez from ?[facility] in [place], [place]. ?This is a difficult melanocytic le bertrand. The cytologic atypia present in ?the excision specimen is considera elijah greater than the atypia seen on the ?original biopsy ([id number]). In ad dition, this excision shows a large ?residual lesion which is poorly ci rcumscribed. This case was reviewed at ?the dermatopathology consensus con ference with RW and KR. Based on the ?size of the lesion, location, and degree of atypia present, an expert ?outside consultation was obtained. ?Dr. Hong review of the initial b iopsy ([id number], #[id number] Part A) ?reads, Compound nevus with caden ectural disorder, moderate cytologic ?atypia and congenital features, sk in, left breast. Dr. Hong diagnosis ?of the current re-excision specime n ([id number], #[id number] Part B) ?reads, Superficial spreading ayde gnant melanoma (Robbin's level II; ?Breslow's thickness 0.39 mm) arisi ng in a compound nevus, skin, left ?breast which represents pathologi c stage pT1a. Dr. Hong comment reads, ?Parts A and B were independently reviewed by two additional board ?certified dermatopathologists who concur with the diagnosis for parts A ?and B. ?The proliferation extends to one l ateral margin. Additional therapy as ?appropriate for the above diagnosi s is advised. REPORT REVISED ON ?AT 1324 B Y EPSTED ?Susana Clark MD ?(electronic signature) DSE/DSE/cjk Date of Report: 05/06/09 CLINICAL DIAGNOSIS: ?The patient is a 23-year-old femal e with 1 skin lesion. Patient presents ?for excision of dysplastic nevus. ORGAN/TISSUE SITE: ?Left breast GROSS DESCRIPTION: ?Received is a 1.5 x 1.5 x 0.8 cm s kin ellipse. Serially sectioned and ?submitted 1 (Both tips) through 3. (Gross examination performed by ?[facility] [place] DSE/assembler ping pong table MICROSCOPIC DESCRIPTION: ?(Microscopic report from Dr. Maylin Hong) Sections are notable for a ?melanocytic proliferation that inc ludes two distinct populations of ?melanocytic cells. One population of melanocytic cells is markedly ?atypical and demonstrates both arc hitectural and cytologic disorder. This ?melanocytic proliferation is large ly found in the epidermis and the ?superficial dermis. It demonstrate s nuclear enlargement, nuclear ?pleomorphism, nuclear hypchromasia and prominent central eosinophilic ?nucleoli. Occasional giant cells w ith bizarre nuclear contours are ?indentified in this population. Th is population includes nests of cells ?that are jumbled and disorganized as well as individual melanocytic cells ?that trail along the dermal-epider mal junction in a lentiginous fasion. In ?few foci, these populations of teo anocytic cells extends to the ?superficial dermis where it invade s to Robbin's level II, Breslow's ?thickness 0.39 mm. Occasional augustina tic activity is identified within the ?dermis. The second population of m elanocytic cells is compatible with a ?compound nevus. It involves the ep idermis and underlying dermis. Within ?the epidermis it forms nests of ce lls that demonstrate prominent ?horizontal growth. Within the unde rlying dermis it forms nests and sheets ?of cells that show maturation with increasing depth. Many of the neuvs ?cells display moderate cytologic a typia manifest as moderate nuclear ?enlargment nuclear contour irregul arities and visible nucleoli. The dermis ?also demonstrates a central area o f fibrosis. The fibrosis is composed of ?thickened, somewhat haphazardly or iented collagen bundles with ?intermixed plump, cytologically bl and fibroblasts. In addition, the ?dermal fibrosis is associated with a proliferation of small branching ?mature vessels. The markedly atypi karina melanocytic population extends to ?one lateral margin of excision. Specimen (Source) Anatomical Collection Method Collection Time Re ceived Time Location / / Volume Laterality 04/19/2009 1:44 PM CDT Christina Hernadez MD LAB_1 Performing Organization Address City/State/ZIP Code Phon e Number HP CONVERSION documented in this encounter Visit Diagnoses Not on filedocumented in this encounter Care Teams Fire Observer Relationship Specialty Start Date End Date Md Valentin MD PCP - General 11/28/10 03/07/15 [place] [address] documented as of this encounter
--- OUTSIDE RECORDS SUMMARY | 2022-05-17 08:34 | XMS_ITS | Encounter Summary ---
:1985 Author Organization [facility] Address [address] [place] [address] Care Team Providers Name Role Phone Md YOBANI Valentin Primary Care Provider Encounter Details Date Type Department Care Team Description 04/15/2009 PN Conversion Only [facility] Rosalie Angel, [address] [place] [address] Social History Tobacco Use Types Packs/Day Years Used Date Smoking Tobacco: Never Assessed Sex Assigned at Date Recorded Not on file documented as of this encounter Plan of Treatment Upcoming Encounters Date Type Specialty Care Team Description 05/18/2022 Appointment Rheumatology Erasmo Horn MD [address] [facility] N [phone] (Wo rk) documented as of this encounter Procedures Procedure Name Priority Date/Time Associated Comments Diagnosis SEXUALLY TRANSMITTED Routine 04/15/2009 1:00 PM R esults for this DISEASE PROBE CDT procedure are in the results section. GLUCOSE Routine 04/15/2009 11:28 Results for this AM CDT procedure are i n the results section. ANATOMICAL PATH Routine 04/15/2009 10:13 Results for this LIQUID BASED AM CDT procedure are i n the results section. documented in this encounter Results Sexually Transmitted Disease Probe (04/15/2009 1:00 PM CDT) [facility] Method Time Signature Sexually SEE TEXT HP CONVERSION Transmitted Disease Probe Comment: Patient: MANJIT DOHERTY R Sexually Trans Disease Probe ?Collected: ??[id number] ??1300 Source: ENDOCERV ?Processed: ??[id number] ??1300 ? 1V Final Report ------ ?[id number] ??1311 No Chlamydia trachomatis detected by amp lified DNA assay No Neisseria gonorrhoeae detected by amp lified DNA assay [facility] Amplified DNA assay is sandoval red by the FDA for non-medicolegal diagnostic testing in the adult population. Specimen (Source) Anatomical Collection Method Collection Time Re ceived Time Location / / Volume Laterality 04/15/2009 1:00 PM CDT Rosalie Angel APRN, CNP LAB_1 Performing Organization Address [facility] Phon e Number HP CONVERSION Glucose (04/15/2009 11:28 AM CDT) P athologist Signature Length Of Fast 12.0 Hours HP CONVERSION Lab Glucose 83 60 - 100 HP CONVERSION mg/dL Specimen (Source) Anatomical Collection Method Collection Time Re ceived Time Location / / Volume Laterality 04/15/2009 11:28 AM CDT Rosalie Angel APRN, CNP LAB_1 Performing Organization Address [facility] Phon e Number HP CONVERSION Pap Smear (04/15/2009 10:13 AM CDT) Patholo gist Method Time Signature PAP Smear SEE TEXT No normal HP CONVERSION Liquid Based range Comment: Patient: MANJIT DOHERTY ? CERVICAL CYTOLOGY REPORT Pathology # ??[id number] ?Date Obtained: ? Date Received: CYTOLOGIC IMPRESSION: Negative for intraepithelial lesion or m alignancy. Verified 04/20/09 by: ??LBM ?(electronic signature) ? NARGIS TIONAL DATA LMP: CLINICAL HIST LIQUID BASED PAP CERVICAL SPECIMEN ADEQUACY: ?? Satisfactory. ENDOCERVICAL CELLS: ??Absent. Specimen (Source) Anatomical Collection Method Collection Time Re ceived Time Location / / Volume Laterality 04/15/2009 10:13 AM CDT Rosalie Angel APRN, TELECOMMUNICATIONS REPAIRER LAB_1 Performing Organization Address City/State/ZIP Code Phon e Number HP CONVERSION documented in this encounter Visit Diagnoses Not on filedocumented in this encounter Care Teams Gasoline Truck Crane Operator Relationship Specialty Start Date End Date Md Valentin MD PCP - General 11/28/10 03/07/15 [place] [address] documented as of this encounter
--- OUTSIDE RECORDS SUMMARY | 2022-05-17 08:34 | XMS_ITS | Encounter Summary ---
:1985 Author Organization [facility] Address [address] [place] [address] Care Team Providers Name Role Phone Md YOBANI Valentin Primary Care Provider Encounter Details Date Type Department Care Team Description 02/10/2009 Office Visit [facility] Tavia Naik PA-C [address] [place] [address] [place] [address] [phone] (Wo rk) Social History Tobacco Use Types Packs/Day Years Used Date Smoking Tobacco: Never Assessed Sex Assigned at Date Recorded Not on file documented as of this encounter Progress Notes Tavia Naik PA-C - 02/10/2009 12:01 AM CDT Procedures signed by Tavia Alfonso PA-C at 02/10/09 1417 Author: Tavia Alfonso PA-C Service: (none) Author Type: Physician Exhaust Machine Operator Filed: 12/17/10 1418 Note Time: 02/10/09 0001 Status: Signed Pcb Designer: Tavia Alfonso PA-C (Resource) Procedure Note: Skin Lesion Excision CHIEF COMPLAINT: Skin mole(s) Past History: NO personal history of skin cancer. Extensive sun exposure. Family History: No history of skin cancer in 1st degree family member. No history of melanoma in 1st degree family member. Adverse Drug Reactions: Patient's ADR's were reviewed and updated today on the Health Profile screen of Electronic Medical Record. Location #1: medial upper left Breast Number of Lesions Treated @ This Site: History: Lesion has been enlarging, Initially there was a mole that had been there for several years without change. In October 2008, she was in [place] and this developed a brown ring around it. She denies itching, pain, or swelling at this site. Size: 1.3 cm x 1.5 cm Characteristics: brown, with variable coloration, regular border, inflamed, macule, With central brown macule measuring approximately 6-8mm. ASSESSMENT: Skin lesion NOS (709.9) PROCEDURE NOTE: Discussed risk of pain, infection, scarring, hypopigmentation, hyperpigmentation, and recurrence or need for retreatment. Benefits of treatment and alternative treatments were also discussed.Sterile technique was used throughout the procedure. Skin was cleaned & prepped with Hibiclens. Area surrounding the lesion was infiltrated with Xylocaine (Lidocaine) with epinephrine. Sodium bicarbonate buffer was used in the anesthetic. Full thickness punch biopsy (down to the fat) was performed using a 4 mm punch. Direct pressure was applied for hemostasis. Specimen(s) sent to pathology. The skin was closed with interrupted simple sutures of 5-0 nylon. No bleeding was present upon the completion of the procedure. The wound was coated with antibacterial ointment. Band-Aid applied to wound(s). PLAN: Signs of infection (spreading erythema, increasing pain, purulent discharge) were discussed. No swimming, keep lesion clean and dry except for showering until the sutures are removed, or fall out (if absorbable). Keep area covered with a sterile dry dressing as instructed. The pt. will be notified of the pathology results via telephone. Patient was given discharge instructions and was discharged in stable condition. Return to clinic in 10 days, sooner PRN. *SH~PC~SLB ~Shorthand Note completed on: 02/10/2009 2:16 PM documented in this encounter Plan of Treatment Upcoming Encounters Date Type Specialty Care Team Description 05/18/2022 Appointment Rheumatology Erasmo Horn MD [address] [facility] [address] (Wo rk) documented as of this encounter Visit Diagnoses Not on filedocumented in this encounter Care Teams Dispatcher Clerk Relationship Specialty Start Date End Date Md Valentin MD PCP - General 11/28/10 03/07/15 [place] [address] documented as of this encounter
--- OUTSIDE RECORDS SUMMARY | 2022-05-17 08:34 | XMS_ITS | Encounter Summary ---
:1985 Author Organization [facility] Address [address] [place] [address] Care Team Providers Name Role Phone Md YOBANI Valentin Primary Care Provider Reason for Visit Reason Comments Other Encounter Details Date Type Department Care Team Description 02/24/2009 Telephone [facility] Wyatt Naik PA-C Other [address] [place] [address] [place] [address] [phone] (Wo rk) Social History Tobacco Use Types Packs/Day Years Used Date Smoking Tobacco: Never Assessed Sex Assigned at Date Recorded Not on file documented as of this encounter Progress Notes Wyatt Naik PA-C - 02/24/2009 10:43 AM CDT Phone Note filed by Wyatt Souza PA-C at 12/16/10522 Author: Wyatt Souza PA-C Service: (none) Author Type: Physician Blockman Filed: 12/16/10522 Note Time: 02/24/09 1043 Status: Signed Animal Nutritionist: Wyatt Souza PA-C (Resource) Biopsy results reviewed. I would like her to consult Plastic Surgery regarding removal of this dysplastic nevus. Created on 24Feb2009 10:43am by WYATT SOUZA B2B SALES MANAGER documented in this encounter Plan of Treatment Upcoming Encounters Date Type Specialty Care Team Description 05/18/2022 Appointment Rheumatology Erasmo Horn MD [address] [facility] [id number] (Wo rk) documented as of this encounter Visit Diagnoses Not on filedocumented in this encounter Care Teams Cyber Systems Engineer Relationship Specialty Start Date End Date Md Valentin MD PCP - General 11/28/10 03/07/15 [place] [address] documented as of this encounter
--- OUTSIDE RECORDS SUMMARY | 2022-05-17 08:34 | XMS_ITS | Encounter Summary ---
:1985 Author Organization [facility] Address [address] [place] [address] Care Team Providers Name Role Phone Md YOBANI Valentin Primary Care Provider Encounter Details Date Type Department Care Team Description 02/10/2009 PN Conversion Only [facility] Nathaly Naik PA-C [address] [place] [address] (Wo rk) Social History Tobacco Use Types Packs/Day Years Used Date Smoking Tobacco: Never Assessed Sex Assigned at Date Recorded Not on file documented as of this encounter Plan of Treatment Upcoming Encounters Date Type Specialty Care Team Description 05/18/2022 Appointment Rheumatology Erasmo Horn MD [address] [facility] [phone] (Wo rk) documented as of this encounter Procedures Procedure Name Priority Date/Time Associated Diagnosis Comme nts DERM PATH-DPF Routine 02/10/2009 12:41 PM Results for this CDT procedure are i n the results section . documented in this encounter Results Derm Path-Dpf (02/10/2009 12:41 PM CDT) [facility] gist Method Time Signature Dermatopathology SEE TEXT No normal HP CONVERSION Final Report range Comment: Patient: MANJIT DOHERTY ?D ERMATOPATHOLOGY Pathology # [id number] ?Date Obtained: ? Date Received: DIAGNOSIS: ?Skin, left breast, punch biopsy: ?- Compound melanocytic nevus with moderate junctional atypia; see ?Comment. COMMENT: ?This is a partial biopsy of a larg er melanocyte proliferation with ?junctional atypia. ??The nevus has some features of congenital onset. ??If ?this represents sampling of a clin ically atypical pigmented lesion, ?complete excision is advised. ??Ot herwise, at a minimum, clinical follow-up ?for any significant change would b e indicated. ?Nash Omalley MD ?(electronic signature) RWW/RWW/amf Date of Report: 02/16/09 CLINICAL DIAGNOSIS: ?Fixed drug eruption vs atypical mo le vs other ORGAN/TISSUE SITE: ?Left breast GROSS DESCRIPTION: ?Received is a 0.4 x 0.4 x 0.6 cm s kin specimen. Bisected and submitted. ?([facility] [place], [place] RWW/jack spooler tender Specimen (Source) Anatomical Collection Method Collection Time Re ceived Time Location / / Volume Laterality 02/10/2009 12:41 PM CDT Tavia Naik PA-C LAB_1 Performing Organization Address City/State/ZIP Code Phon e Number HP CONVERSION documented in this encounter Visit Diagnoses Not on filedocumented in this encounter Care Teams Brigadier Relationship Specialty Start Date End Date Pnc, Md, MD PCP - General 11/28/10 03/07/15 [place], [place] [address] documented as of this encounter
--- OUTSIDE RECORDS SUMMARY | 2022-05-17 08:34 | XMS_ITS | Encounter Summary ---
:1985 Author Organization [facility] Address [address] [place] [address] Care Team Providers Name Role Phone Md YOBANI Valentin Primary Care Provider Encounter Details Date Type Department Care Team Description 02/22/2009 Office Visit [facility] Natanael Perry DPM [facility] [address] [facility] [address] [place] [id number] [place] [address] [phone] Social History Tobacco Use Types Packs/Day Years Used Date Smoking Tobacco: Never Assessed Sex Assigned at Date Recorded Not on file documented as of this encounter Progress Notes Dominik Perry DPM - 02/22/2009 12:01 AM CDT Progress Notes signed by Dominik Perry DPM at 03/05/09 0847 Author: Dominik Perry DPM Service: (none) Author Type: Physician Filed: 12/17/10 1436 Note Time: 02/22/09 0001 Status: Signed Group Leader [employer] Processing: Dominik Perry DPM (Resource) NAME: MANJIT DOHERTY MR#: [id number] ACCT: [id number] VISIT: [id number] DICTATING CLINICIAN: Dominik Perry DPM CONFIRM #: [id number] LOC: 539 CLINIC PROGRESS NOTE DATE OF VISIT: 02/22/2009 SUBJECTIVE: Patient presents for followup. I did see her last week for right foot pain. She did have pain at that point, which was there 1 month prior. She did see urgent care, and x-rays were obtained. She believes that she was sitting with her right foot underneath her body, and when she stood up, she felt a pop and pain ever since. She does have pain which is worse in the morning when getting up out of bed. Because of the level of pain she was in, they did place her into a CAM Walker. She states that when she wears the CAM Walker, she does not have discomfort, but without it, she does. She has been back into the CAM Walker, but states that she does not wear this around the house because they do not wear shoes in the house. I did have her try Aleve, and she states that this has not helped. She is currently being treated for juvenile rheumatoid arthritis and is on methotrexate. ADR/ALLERGIES: DENIES. REVIEW OF SYSTEMS: Significant for juvenile rheumatoid arthritis. 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 OBJECTIVE: Patient is neurovascularly intact. There again is no swelling or ecchymosis to the lateral foot. She does have pain along the peroneal tendon, and at the insertion on the base of the 5th metatarsal. When I have her plantar flex the 1st ray, there is good strength. There is still slight discomfort laterally. Eversion of the foot against resistance again shows good strength, with some discomfort. She does have some pain over the cuboid area. No other abnormalities noted. ASSESSMENT: Peroneal tendinitis with lateral right foot pain. PLAN: At this point, before considering physical therapy, I would like to consider an MRI. She does still have a lot of discomfort and does have some relief with the CAM Walker, but discomfort persists. She was set up for an MRI without contrast. She will follow up with me after this. ALP:[id number] C: 02/23/09 10:35 CONFIRM #: [id number] documented in this encounter Plan of Treatment Upcoming Encounters Date Type Specialty Care Team Description 05/18/2022 Appointment Rheumatology Erasmo Horn [facility] [address] [facility] [address] (Wo rk) documented as of this encounter Visit Diagnoses Not on filedocumented in this encounter Care Teams Adult Ministries Director Relationship Specialty Start Date End Date Md Valentin MD PCP - General 11/28/10 03/07/15 [place] [facility] [place] [address] documented as of this encounter
--- OUTSIDE RECORDS SUMMARY | 2022-05-17 08:34 | XMS_ITS | Encounter Summary ---
:1985 Author Organization [facility] Address [address] [place] [address] Care Team Providers Name Role Phone Md YOBANI Valentin Primary Care Provider Encounter Details Date Type Department Care Team Description 05/06/2009 Office Visit [facility] Tavia Naik PA-C [address] [place] [address] [place] [address] [phone] (Wo rk) Social History Tobacco Use Types Packs/Day Years Used Date Smoking Tobacco: Never Assessed Sex Assigned at Date Recorded Not on file documented as of this encounter Progress Notes Tavia Naik PA-C - 05/06/2009 12:01 AM CDT Procedures signed by Tavia Alfonso PA-C at 05/06/09 1223 Author: Tavia Alfonso PA-C Service: (none) Author Type: Physician President Of [place] Filed: 12/17/10 7701 Note Time: 05/06/09 0001 Status: Signed Ward Nurse: Tavia Alfonso PA-C (Resource) Procedure Note: Skin Lesion Excision CHIEF COMPLAINT: Skin mole(s) Past History: NO personal history of skin cancer. History of moderately dysplastic nevus of the left upper medial breast. Extensive sun exposure. Family History: No history of skin cancer in 1st degree family member. Adverse Drug Reactions: Patient's ADR's were reviewed and updated today on the Health Profile screen of Electronic Medical Record. Location #1: distal posterior right shoulder Number of Lesions Treated @ This Site: 1present for years, Thinks it is becoming more red. Size: 0.8 cm x 0.9 cm Characteristics: brown, with variable coloration, irregular border, inflamed, macule, ASSESSMENT: Changing nevus/mole (238.2) PROCEDURE NOTE: Discussed risk of pain, infection, scarring, hypopigmentation, hyperpigmentation, and recurrence or need for retreatment. Benefits of treatment and alternative treatments were also discussed.Sterile technique was used throughout the procedure. Skin was cleaned & prepped with Hibiclens. Area surrounding the lesion was infiltrated with Xylocaine (Lidocaine) with epinephrine. Sodium bicarbonate buffer was used in the anesthetic. Dermal shave biopsy was performed using a flexible shave biopsy blade. Aluminum chloride was applied for hemostasis. Specimen(s) sent to pathology. Skin closure was not necessary. No bleeding was present upon the completion of the procedure. The wound was coated with antibacterial ointment. Band-Aid applied to wound(s). Location #2: posterior left shoulder Number of Lesions Treated @ This Site: History: Lesion has been enlarging, present for years, Size: 0.8 cm x 0.8 cm Characteristics: brown, with variable coloration, irregular border, inflamed, macule, ASSESSMENT: Changing nevus/mole (238.2) PROCEDURE NOTE: Discussed risk of pain, infection, scarring, hypopigmentation, hyperpigmentation, and recurrence or need for retreatment. Benefits of treatment and alternative treatments were also discussed.Sterile technique was used throughout the procedure. Skin was cleaned & prepped with Hibiclens. Area surrounding the lesion was infiltrated with Xylocaine (Lidocaine) with epinephrine. Sodium bicarbonate buffer was used in the anesthetic. Dermal shave biopsy was performed using a flexible shave biopsy blade. Aluminum chloride was applied for hemostasis. Direct pressure was applied for hemostasis. Specimen(s) sent to pathology. Skin closure was not necessary. No bleeding was present upon the completion of the procedure. The wound was coated with antibacterial ointment. Band-Aid applied to wound(s). 7 Location #3: lower left forehead Number of Lesions Treated @ This Site: History: Lesion has been enlarging, present for years, pt. has not tried to treat the lesion(s), Size: 0.5 cm x 0.5 cm Characteristics: skin-colored, with uniform coloration, regular border, inflamed, papule, ASSESSMENT: Changing nevus/mole (238.2) PROCEDURE NOTE: Discussed risk of pain, infection, scarring, hypopigmentation, hyperpigmentation, and recurrence or need for retreatment. Benefits of treatment and alternative treatments were also discussed.Sterile technique was used throughout the procedure. Skin was cleaned & prepped with Hibiclens. Area surrounding the lesion was infiltrated with Xylocaine (Lidocaine) with epinephrine. Sodium bicarbonate buffer was used in the anesthetic. Dermal shave biopsy was performed using a flexible shave biopsy blade. Aluminum chloride was applied for hemostasis. Specimen(s) sent to pathology. Skin closure was not necessary. No bleeding was present upon the completion [...] discharged in stable condition. Return to clinic as needed. *SH~PC~SLB ~[place] Note completed on: 05/06/2009 12:22 PM documented in this encounter Plan of Treatment Upcoming Encounters Date Type Specialty Care Team Description 05/18/2022 Appointment Rheumatology Erasmo Horn MD [address] [facility] [place] [address] (Wo rk) documented as of this encounter Visit Diagnoses Not on filedocumented in this encounter Care Teams Technology Integration Specialist Relationship Specialty Start Date End Date Md Valentin MD PCP - General 11/28/10 03/07/15 [place] [address] documented as of this encounter
--- OUTSIDE RECORDS SUMMARY | 2022-05-17 08:34 | XMS_ITS | Encounter Summary ---
:1985 Author Organization [employer] Address [address] [place] [address] Care Team Providers Name Role Phone Md YOBANI Valentin Primary Care Provider Encounter Details Date Type Department Care Team Description 05/06/2009 PN Conversion Only [facility] CONVERSION Nathaly Naik PA-C [address] [place] [address] (Wo rk) Social History Tobacco Use Types Packs/Day Years Used Date Smoking Tobacco: Never Assessed Sex Assigned at Date Recorded Not on file documented as of this encounter Plan of Treatment Upcoming Encounters Date Type Specialty Care Team Description 05/18/2022 Appointment Rheumatology Erasmo Horn MD [address] [facility] [phone] (Wo rk) documented as of this encounter Procedures Procedure Name Priority Date/Time Associated Diagnosis Comme nts DERM PATH-DPF Routine 05/06/2009 4:51 PM Results for this CDT procedure are i n the results section . documented in this encounter Results DERM PATH-DPF (05/06/2009 4:51 PM CDT) [facility] gist Method Time Signature Dermatopathology SEE TEXT No normal HP CONVERSION Final Report range Comment: Patient: LIANA DOHERTY ?D ERMATOPATHOLOGY Pathology # [id number] ?Date Obtained: [id number] ? Date Received: DIAGNOSIS: A) ??Compound nevus with lentiginous arc hitectural disorder and severe ?cytologic atypia, skin, distal pos terior right shoulder (See comment) B) ??Atypical compound melanocytic lesio n, skin, posterior left shoulder (See ?comment) C) ??Compound nevus with architectural d isorder and moderate cytologic atypia, ?skin, left lower forehead (See com ment) Comment A: ?Deeper sections were obtained in t his case. Severe cytologic atypia is ?seen and lateral margins are invol jules. Due to the cytologic atypia and ?positive margin, re-excision with a margin of normal skin is advised to ?assure complete removal. This case was reviewed by TORSTEN and PAULA and will also ?be sent to Dr. Maylin Hong for co nsultation. See addendum. Comment B: ?Deeper sections were obtained in t his case. The increased single ?melanocytes and upward migration i s concerning. In addition, the ?proliferation is asymmetric. The d ifferential diagnosis includes a ?compound dysplastic nevus with sev ere atypia or evolving melanoma in situ ?arising within a nevus. Lateral ma rgins are involved. Due to the cytologic ?atypia and positive margin, re-exc ision with 5 mm margins is recommended. ?This case was reviewed by TORSTEN and Raymond Basurto and will also be sent to Dr. Carlisle ?Gely for consultation. See adden dum. Comment C: ?Deeper sections were obtained in t his case. Deep and lateral margins are ?involved. Due to the cytologic aty jorge and positive margin, re-excision to ?assure complete removal is advised . This case was reviewed by RW and KR ?and will also be sent to Dr. Maylin Hong for consultation. See addendum. Addendum A: ?Report received from Dr. Maylin bradshaw. His diagnosis reads, Compound ?nevus with architectural disorder and severe cytologic atypia, skin, ?distal posterior right shoulder. Addendum B: ?Report received from Dr. Maylin bradshaw. His diagnosis reads, Compound ?nevus with lentiginous architectur al disorder and severe cytologic atypia, ?skin, posterior left shoulder. Addendum C: ?Report received from Dr. Maylin bradshaw. His diagnosis reads, Compound ?nevus with architectural disorder and moderate cytologic atypia, skin, ?left lower forehead. Dr. Hong comment reads, Because of th e cytologic atypia and the involvement ?of multiple margins of excision, r e-excision to assure complete removal is ?recommended for all three specimen s. Based on the atypia of the nevi in ?this patient, dysplastic nevus syn drome is a consideration. Does this ?patient have a family history of m elanoma?Susana Clark MD ?(electronic signature) DSE/DSE/amf Date of Report: 05/17/09 CLINICAL DIAGNOSIS: ?The patient is a 23 year old with 3 skin lesions. Clinical impression for ?all 3 lesions are dysplastic nevi. ORGAN/TISSUE SITE: ?Distal posterior right shoulder/Po sterior left shoulder/Left lower ?forehead GROSS DESCRIPTION: A) ??Received is a 0.9 x 0.7 x 0.2 cm sk in specimen. Trisected and submitted. B) ??Received is a 0.9 x 0.7 x 0.2 cm sk in specimen. Trisected and submitted. C) ??Received is a 0.7 x 0.4 x 0.1 cm sk in specimen. Bisected and submitted. ?(Gross examination performed by [facility], [place], [place].) DSE/x ray technologist MICROSCOPIC DESCRIPTION: A) ??Sections examined show a shave of s kin. ??There are nests of ?nevomelanocytes at the dermoepider mal junction with extension into the ?dermis. ??Increased single melanoc ytes are seen. ??Nevus cells extend down ?follicular structures. ??Bridging is present. ??High-power examination shows ?severe cytologic atypia including cellular pleomorphism and hyperchromatic ?nuclei. ??Some cells are present i n the mid to upper portion of the ?epidermis. Dermal mitotic activity is not identified. The proliferation is ?poorly circumscribed and is asymme tric. Deeper sections show similar ?features. ??Lateral margins are in volved. B) ??Sections examined show a shave of s kin. ??There are nests of ?nevomelanocytes at the dermoepider mal junction. Increased single ?melanocytes are seen. ??High-power examination shows severe cytologic ?atypia including cellular pleomorp hism and hyperchromatic nuclei. ??Some ?melanocytes are present in the upp er portion of the epidermis. The ?proliferation is asymmtric and is poorly circumscribed. There is extension ?into the dermis. Dermal mitotic ac tivity is not identified and dermal ?cells appear to mature. Deeper sec tions show similar features. Lateral ?margins are involved. C) ??Sections examined show a shave of s kin. ??There are nests of ?nevomelanocytes at the dermoepider mal junction with extension into the ?dermis. ??Bridging is seen. ??High -power examination shows moderate ?cytologic atypia including cellula r pleomorphism and hyperchromatic ?nuclei. ??There is extension down follicular structures. Deep and lateral ?margins are involved. Specimen (Source) Anatomical Collection Method Collection Time Re ceived Time Location / / Volume Laterality 05/06/2009 4:51 PM CDT Tavia Naik PA-C LAB_1 Performing Organization Address City/State/ZIP Code Phon e Number HP CONVERSION documented in this encounter Visit Diagnoses Not on filedocumented in this encounter Care Teams Knitting Tester Relationship Specialty Start Date End Date Md Homero, MD PCP - General 11/28/10 03/07/15 [place] [address] documented as of this encounter
--- OUTSIDE RECORDS SUMMARY | 2022-05-17 08:34 | XMS_ITS | Encounter Summary ---
:1985 Author Organization [employer] Address [address] [place] [address] Care Team Providers Name Role Phone Md YOBANI Valentin Primary Care Provider Encounter Details Date Type Department Care Team Description 02/04/2009 Office Visit [facility] Brad Saldivar PA-C [address] [address] [place], [place] [address] (Wo rk) Social History Tobacco Use Types Packs/Day Years Used Date Smoking Tobacco: Never Assessed Sex Assigned at Date Recorded Not on file documented as of this encounter Last Filed Vital Signs Vital Sign Reading Time Taken Comments Blood Pressure 126/67 02/04/2009 10:52 AM CDT Pulse 88 02/04/2009 10:52 AM CDT Temperature 36.8 ??C (98.2 ??F) 02/04/2009 10:52 AM CDT C: 3 6.8 C Respiratory Rate 16 02/04/2009 10:52 AM CDT Oxygen Saturation - - Inhaled Oxygen Concentration - - Weight - - Height - - Body Mass Index - - documented in this encounter Progress Notes Brad Saldivar PA-C - 02/04/2009 12:01 AM CDT Progress Notes signed by Brad Saldivar PA-C at 02/04/09 1308 Author: Brad Saldivar PA-C Service: (none) Author Type: Physician Home Energy Consultant Supervisor Filed: 12/17/10 1409 Note Time: 02/04/09 0001 Status: Signed Dental [employer] Processor: Brad Saldivar PA-C (Resource) NAME: MANJIT DOHERTY MR#: [id number] ACCT: [id number] VISIT: [id number] DICTATING CLINICIAN: BRAD SALDIVAR PA-C CONFIRM #: [id number] LOC: 520 CLINIC PROGRESS NOTE DATE OF VISIT: 02/04/2009 SUBJECTIVE: This is a 23-year-old female who presents with pain in the lateral aspect of her right foot. It started a few weeks ago. She was sitting with her right foot underneath her body, she stood up, felt a pop in the right foot and she has had pain ever since then. It will swell up but it has never bruised, it hurts the more she walks, especially going up and down stairs. Does not radiate. No previous history of trauma. No numbness or paresthesias. Pain is mild to moderate. PAST MEDICAL HISTORY: Please see LastWord. MEDICATIONS: Please see LastWord. ADR/ALLERGIES: PLEASE SEE LASTWORD. OBJECTIVE: VS: BP: 126/67. T: 98.2. P: 88. R: 16. Well-developed, well-nourished male in no apparent distress. SKIN: Warm and dry. She walks with a slight limp. Examination right foot reveals she is tender to palpation over the proximal aspect of the 5th metatarsal. Nontender over the rest of the foot. No swelling or bruising now. Range of motion is normal. Strength is normal. X-rays were requested and reviewed by me were negative. ASSESSMENT: Right foot pain. PLAN: Since it has been 2 weeks and gradually getting worse, I am going to put her in a short CAM walker. She was given CAM walker instructions. Advil, ice, rest. She will follow up with Podiatry in about 10 days for recheck. Return to urgent care if signs or symptoms worsen or change. Patient was agreeable to plan and left in stable condition. NGHIA:[id number] C: 02/04/09 12:47 CONFIRM #: [id number] documented in this encounter Plan of Treatment Upcoming Encounters Date Type Specialty Care Team Description 05/18/2022 Appointment Rheumatology Erasmo Horn MD [address] [facility] [address] [place] [address] (Wo rk) documented as of this encounter Procedures Procedure Name Priority Date/Time Associated Diagnosis Comme nts XR FOOT RT 3+ VIEWS Routine 02/04/2009 11:22 AM R esults for this CDT procedure are i n the results section. documented in this encounter Results XR Foot Rt 3+ Views (02/04/2009 11:22 AM CDT) Anatomical Region Laterality Modality Lower Extremity, Foot Other Specimen (Source) Anatomical Location Collection Method / Collectio n Time Received Time / Laterality Volume Impressions 02/04/2009 11:22 AM CDT : ??Normal 3-view study of the right foot. [id number] Dictating BRAD YARBROUGH RADIOLOGIST Narrative 02/04/2009 11:22 AM CDT There is no evidence of a fracture, dislocation, arthritic change or other abnormality. Procedure Note Brad Rendon - 10/26/2016Formattin g of this note might be different from the original. There is no evidence of a fracture, disl ocation, arthritic change or other abnormality. IMPRESSION : Normal 3-view study of the right foot. [id number]/rr Dictating BRAD YARBROUGH RADIOLOGIST Brad Saldivar PA-C RAD GD documented in this encounter Visit Diagnoses Not on filedocumented in this encounter Care Teams Brand Representative Relationship Specialty Start Date End Date Md Valentin MD PCP - General 11/28/10 03/07/15 [facility] [place] [address] documented as of this encounter
--- OUTSIDE RECORDS SUMMARY | 2022-05-17 08:34 | XMS_ITS | Encounter Summary ---
:1985 Author Organization [facility] Address [address] [place] [address] Care Team Providers Name Role Phone Md YOBANI Valentin Primary Care Provider Encounter Details Date Type Department Care Team Description 02/10/2009 PN Conversion Only [facility] [address], Dermatology [address] [facility] [address] [place] [place] [address] [address] [place], [place] [phone] (Wo rk) Social History Tobacco Use Types Packs/Day Years Used Date Smoking Tobacco: Never Assessed Sex Assigned at Date Recorded Not on file documented as of this encounter Plan of Treatment Upcoming Encounters Date Type Specialty Care Team Description 05/18/2022 Appointment Rheumatology Erasmo Horn MD [address] [facility] N [id number] (Wo rk) documented as of this encounter Visit Diagnoses Not on filedocumented in this encounter Care Teams Ranch Rider Relationship Specialty Start Date End Date Md Valentin MD PCP - General 11/28/10 03/07/15 [place], [place] [phone] documented as of this encounter
--- OUTSIDE RECORDS SUMMARY | 2022-05-17 08:34 | XMS_ITS | Encounter Summary ---
:1985 Author [facility] Address [address] [place] [address] Care Team Providers Name Role Phone Md YOBANI Valentin Primary Care Provider Encounter Details Date Type Department Care Team Description 04/19/2009 Office Visit [facility] [address] Christina Hernadez MD Plastic Surgery [address] [facility] [address] [place] [address] [phone] Social History Tobacco Use Types Packs/Day Years Used Date Smoking Tobacco: Never Assessed Sex Assigned at Date Recorded Not on file documented as of this encounter Progress Notes Christina Hernadez MD - 04/19/2009 12:01 AM CDT Progress Notes signed by Christina Hernadez MD at 04/24/092012 Author: Christina Hernadez MD Service: (none) Author Type: Physician Filed: 12/17/10 1557 Note Time: 04/19/09 0001 Status: Signed Dynamics Ax Technical Architect: Christina Hernadez MD (Physician) NAME: MANJIT WASHINGTON MR#: [id number] ACCT: [id number] VISIT: [id number] DICTATING CLINICIAN: CHRISTINA HERNADEZ MD CONFIRM #: [id number] LOC: 458 CLINIC PROGRESS NOTE DATE OF VISIT: 04/19/2009 SUBJECTIVE: Manjit Washington is here to have reexcision of a dysplastic nevus, left breast. Pathology from biopsy is compound melanocytic nevus with moderate junctional atypia. Nevus has features of congenital onset. If this represents a sampling of a clinically atypical pigmented lesion, complete excision is advised. For this reason, Tavia Alfonso sent her here. She states that the mole looked funny when she came back from [place]. Does not think it got sunburned, but she has had a lot of sun in her life, and the mole had this discolored appearance and a pink ring surrounding it. No history of abnormal healing noted. Medical record updated. No history of abnormal scarring. ADR/ALLERGIES: NO ALLERGIES. OBJECTIVE: On exam, there is a 1.5 cm nevus with a rim of erythema surrounding it. Total size 1.7 mm. The biopsy site is evident. Located medial superior left breast. It is somewhat papular nevus with a little thickness associated with it and a little surface irregularity, but overall appears benign. The lesion was marked with a 2 mm margin. Total 1.9 cm. ASSESSMENT: Congenital nevus with atypia. She and I discussed the recommendations of either close clinical observation or complete excision, and have elected to proceed with complete excision. The resultant scar, the distortion to the nipple-areolar complex, or the visibility of the scar in clothing was marked. Attempt will be made to resect it in the relaxed skin tension lines, but there will be a scar present, and this area has a tendency to heal with hypertrophy. The length of the scar will be longer than the lesion. She understands. Wishes to proceed. The area was marked as described above. The relaxed skin tension lines were marked. Plan for excision of lesion in a circular fashion and closure with the least amount of distortion and limitation to the surgical wound. The area was injected with 1% lidocaine, 1:100,000 epinephrine. Excised full-thickness. Closed with 4-0 PDS and 5-0 Monocryl and a 5-0 pullout Prolene. Complex repair. Appropriate undermining to allow for closure without tension. Total length of incision 3 cm, complex repair. Steri-Strips were applied. She was instructed on wound care, analgesics, and activity. Was given a prescription for Tylenol with codeine. Follow up next week for suture removal, pathology check. Specimen sent to Dermatopathology lab. PLAN: See Assessment. LENARD:[id number] C: 04/19/09 16:40 CONFIRM #: [id number] documented in this encounter Plan of Treatment Upcoming Encounters Date Type Specialty Care Team Description 05/18/2022 Appointment Rheumatology Erasmo Horn MD [address] [facility] N [address] (Wo rk) documented as of this encounter Visit Diagnoses Not on filedocumented in this encounter Care Teams Union Representative Relationship Specialty Start Date End Date Md Valentin MD PCP - General 11/28/10 03/07/15 [place], [place] [address] documented as of this encounter
--- OUTSIDE RECORDS SUMMARY | 2022-05-17 08:34 | XMS_ITS | Encounter Summary ---
:1985 [facility] Address [address] [place] [address] Care Team Providers Name Role Phone Md YOBANI Valentin Primary Care Provider Encounter Details Date Type Department Care Team Description 03/03/2009 PN Conversion Only [facility] [address] [place] [address] Social History Tobacco Use Types Packs/Day Years Used Date Smoking Tobacco: Never Assessed Sex Assigned at Date Recorded Not on file documented as of this encounter Plan of Treatment Upcoming Encounters Date Type Specialty Care Team Description 05/18/2022 Appointment [facility]umatology Erasmo Horn [facility] [address] [facility] [phone] (Wo rk) documented as of this encounter Visit Diagnoses Not on filedocumented in this encounter Care Teams Sales Receptionist Relationship Specialty Start Date End Date Md Valentin MD PCP - General 11/28/10 03/07/15 [place], [place] [id number] documented as of this encounter
--- OUTSIDE RECORDS SUMMARY | 2022-05-17 08:34 | XMS_ITS | Encounter Summary ---
:1985 Author Organization [facility] Address [address] [place] [address] Care Team Providers Name Role Phone Md YOBANI Valentin Primary Care Provider Encounter Details Date Type Department Care Team Description 03/01/2009 Office Visit [facility] Nathan Lopez PA-C [address] [facility] [address] [place] [address] [place] [address] [phone] (Wo rk) Social History Tobacco Use Types Packs/Day Years Used Date Smoking Tobacco: Never Assessed Sex Assigned at Date Recorded Not on file documented as of this encounter Last Filed Vital Signs Vital Sign Reading Time Taken Comments Blood Pressure 125/88 03/01/2009 2:18 PM CDT Pulse 91 03/01/2009 2:18 PM CDT Temperature 37.6 ??C (99.7 ??F) 03/01/2009 2:18 PM ORAL C: 3 7.6 C CDT Respiratory Rate - - Oxygen Saturation - - Inhaled Oxygen Concentration - - Weight - - Height - - Body Mass Index - - documented in this encounter Progress Notes Nathan Lopez PA-C - 03/01/2009 12:01 AM CDT Progress Notes signed by Nathan Loepz PA-C at 03/01/09 8239 Author: Nathan Lopez PA-C Service: (none) Author Type: Physician Clipper Automatic Filed: 12/17/10 7719 Note Time: 03/01/09 0001 Status: Signed Punchboard Filling Machine Operator: Nathan Lopez PA-C (Resource) SUBJECTIVE : Liana is a 23-year-old female presenting to urgent care for evaluation of left ear pain for 3 or 4 days. She developed a fever and has maintained on and off for the last 6 days. She returned from [place] today. She also states she was quite tired two or 3 weeks ago. She notes now she is having a more difficult time sleeping, when before she couldn't get enough sleep. Adverse Drug Reactions : NKDA Medications: Reviewed. See Medication List in LastWord. 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 Temperature : 99.7 General: Patient does not appear acutely ill. Skin : Mucous membranes are moist. No sign of obvious dehydration. Ears: Canals and TM's normal without lesions. Nose: Mildly congested. Pharynx: Mildly erythematous without exiting Neck: Firm, tender, anterior and posterior lymphadenopathy bilaterally. Respiratory: Normal respiratory effort. Lungs are clear with good breath sounds. Heart: RR without murmurs, rubs, or gallops. Abdomen: Soft and nontender Lab: Rapid strep is negative. Strep culture is pending. Buchanan test is positive. CBC shows 70% lymphocytes, 20% neutrophils, and a white blood cell count of 6.9 ASSESSMENT: Mononucleosis. PLAN: We discussed how mild can persist for quite some time. She needs to obtain as much sleep as possible. She needs to work as little as possible. Discussed treatment of viral illnesses, and lack of indication for antibiotics. Discussed contagiousness. Encourage nutritious liquids. Use ibuprofen or Tylenol for fever or pain. Chicken soup and salt water gargles recommended. Cepacol or Chloraseptic may also be used. Rest at home as needed until symptoms are improving. RTC p.r.n. if not gradually improving. The patient was discharged ambulatory and in stable condition. *SH~DNS~VirPharyngitis documented in this encounter Plan of Treatment Upcoming Encounters Date Type Specialty Care Team Description 05/18/2022 Appointment Rheumatology Erasmo Horn MD [address] [facility] [place] N [address] (Wo rk) documented as of this encounter Visit Diagnoses Not on filedocumented in this encounter Care Teams Hot Mill Supervisor Relationship Specialty Start Date End Date Md Valentin MD PCP - General 11/28/10 03/07/15 [facility], [place] [id number] documented as of this encounter
--- OUTSIDE RECORDS SUMMARY | 2022-05-17 08:34 | XMS_ITS | Encounter Summary ---
:1985 [facility] Address [address] [place] [address] Care Team Providers Name Role Phone Md YOBANI Valentin Primary Care Provider Encounter Details Date Type Department Care Team Description 04/15/2009 Office Visit [facility], Obstetrics/Gynecolog y ANCELMO, JESUS [address] [place] [address] Social History Tobacco Use Types Packs/Day Years Used Date Smoking Tobacco: Never Assessed Sex Assigned at Date Recorded Not on file documented as of this encounter Last Filed Vital Signs Vital Sign Reading Time Taken Comments Blood Pressure 124/64 04/15/2009 11:01 AM CDT Pulse - - Temperature - - Respiratory Rate - - Oxygen Saturation - - Inhaled Oxygen Concentration - - Weight 58 kg (127 lb 15.6 oz) 04/15/2009 11:01 AM C: 58 .1kg CDT Height 156.2 cm (5' 1.5) 04/15/2009 11:01 AM C: 156.2c m CDT Body Mass Index 23.79 04/15/2009 11:01 AM CDT documented in this encounter Progress Notes Rosalie Angel, ANCELMO, INTERNATIONAL LOGISTICS MANAGER - 04/15/2009 12:01 AM CDT Progress Notes signed by DASHAWN Ocasio at 04/15/09 1549 Author: DASHAWN Ocasio Service: (none) Author Type: Nurse Practitioner Filed: 12/17/10 1558 Note Time: 04/15/09 0001 Status: Signed Chopped Strand Operator: DASHAWN Ocasio (Nurse Practitioner) Subjective: Patient presents for her annual exam. She offers no concerns or complaints. History is reviewed and updated from history obtained by myself 05/26/08 at time of initiation of oral contraceptives for treatment of menorrhagia. She has since become sexually active with one partner four months ago. She was told by me that she should have her initial Pap smear and pelvic exam when she was age 23 or sexually active, which ever came first. Social history: She is a 23-year-old female. She is single. 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 Medical/surgical history is updated on patient health profile. Medications/drug allergies are updated in last word. Gynecologic history: Last menstrual period 03/31/09. This is her first Pap smear. She would like STD screening for Chlamydia/gonorrhea. If positive, she will return to clinic for additional lab testing. Obstetric history: Nulliparous. Preventative health care: She had normal cholesterol testing in 2007. Following review of glucose level online of 99, she is agreeable to have testing today. She is fasting. She is up-to-date on immunizations. She will check insurance coverage with regard to Gardasil and if covered, make an appointment with the injection nurse. Remainder of complete review of systems negative. Objective: Vital signs as noted in last word flow sheet. General Appearance: Patient is a pleasant appearing women in no acute distress. Skin is normal in color and warm to touch. Psychiatric: Patient is alert and oriented to time and place. Affect is appropriate. She is well groomed. Neurologic: PERRL. Normal gait, coordination and strength. Neck: Normal appearance. No thyromegaly. No lymphadenopathy. Lungs: Clear to ascultation bilaterally. Cardiac: Normal sinus rythum. Normal S1/S2. No murmurs. Breasts: Normal exam to inspection and palpation. No axilla nodes. Abdomen: Soft and non-tender without organmegaly. Normal bowel sounds are ascultated in all four quadrants. External genitalia: Urethra is non-inflamed. Exam mons pubis, labia minora, labia majora and posterior forchette without redness or lesions. Exam internal vaginal vault shows normal pink rugae. No abnormal discharge. Cervix appears normal to inspection. Pap smear obtained using cytobrush. STDPR probe sampling is obtained at cervical os. Uterus is normal size, firm, ovoid, mobile without tenderness. Adnexal exam unremarkable. Anus without redness or hemorrhoids. Skin: No lesions. Normal hydration. Assessment: Initial Pap smear and pelvic exam. Health screening. STD screening. Contraceptive surveillance. Plan: Reviewed online medical record. Reviewed SENIOR JAVA DEVELOPER health history which is sent for scanning. Pending tests include Pap smear, glucose and STDPR probe. She will be informed of test results when available. Rx Desogen 28 day x 1 year, reviewed use. Return to clinic in one year or p.r.n. *SH~DNS~normal exam documented in this encounter Plan of Treatment Upcoming Encounters Date Type Specialty Care Team Description 05/18/2022 Appointment Rheumatology Erasmo Horn MD [address] [facility] N [phone] (Wo rk) documented as of this encounter Visit Diagnoses Not on filedocumented in this encounter Care Teams Web Graphic Designer Relationship Specialty Start Date End Date Md Valentin MD PCP - General 11/28/10 03/07/15 [place], [place] [phone] documented as of this encounter
--- OUTSIDE RECORDS SUMMARY | 2022-05-17 08:34 | XMS_ITS | Encounter Summary ---
:1985 Author [facility] Address [address] [place] [address] Care Team Providers Name Role Phone Md YOBANI Valentin Primary Care Provider Encounter Details Date Type Department Care Team Description 02/23/2009 Nursing Visit [facility] Melissa Ayala, WHEELAGE CLERK, [address] [place] [address] [facility] [phone] [place] [address] (Wo rk) Social History Tobacco Use Types Packs/Day Years Used Date Smoking Tobacco: Never Assessed Sex Assigned at Date Recorded Not on file documented as of this encounter Plan of Treatment Upcoming Encounters Date Type Specialty Care Team Description 05/18/2022 Appointment [facility]umatology [facility]asmo Horn MD [address] [facility] [phone] (Wo rk) documented as of this encounter Visit Diagnoses Not on filedocumented in this encounter Care Teams Metal Forger'S Assistant Relationship Specialty Start Date End Date Md Valentin MD PCP - General 11/28/10 03/07/15 [place], [place] [phone] documented as of this encounter
--- OUTSIDE RECORDS SUMMARY | 2022-05-17 08:34 | XMS_ITS | Encounter Summary ---
:1985 Author Organization [facility] Address [address] [place] [address] Care Team Providers Name Role Phone Md YOBANI Valentin Primary Care Provider Encounter Details Date Type Department Care Team Description 11/16/2008 Office Visit [facility] [place] [address] [place] [address] [place] [address] [phone] (Wo rk) Social History Tobacco Use Types Packs/Day Years Used Date Smoking Tobacco: Never Assessed Sex Assigned at Date Recorded Not on file documented as of this encounter Last Filed Vital Signs Vital Sign Reading Time Taken Comments Blood Pressure 112/66 11/16/2008 1:32 PM CDT Pulse 92 11/16/2008 1:32 PM CDT Temperature - - Respiratory Rate - - Oxygen Saturation - - Inhaled Oxygen Concentration - - Weight 59 kg (129 lb 15.7 oz) 11/16/2008 1:32 PM CDT C: 59.0kg Height - - Body Mass Index 24.16 05/26/2008 11:32 AM CDT documented in this encounter Progress Notes Josh Ruby MD - 11/16/2008 12:01 AM CDT Progress Notes signed by Josh Ruby MD at 11/25/08 1513 Author: Josh Ruby MD Service: (none) Author Type: Physician Filed: 12/17/10 1202 Note Time: 11/16/08 0001 Status: Signed Post Hole Digging Machine Operator: Josh Ruby MD (Physician) NAME: MANJIT DOHERTY MR#: [id number] ACCT: [id number] VISIT: [id number] DICTATING CLINICIAN: JOSH RUBY MD CONFIRM #: [id number] LOC: 502 CLINIC PROGRESS NOTE DATE OF VISIT: 11/16/2008 SUBJECTIVE: : 1985. CHIEF COMPLAINT: Follow up for urgent care for ultrasound results. HISTORY OF PRESENTING ILLNESS: Manjit is a 22-year-old lady who today came in with concerns about a followup for recent urgent care visit on 11/04/08. According to the patient, she was having epigastric pain intermittently for more than a month. She gets a pain after eating and it can happen after eating any certain food, but especially she has noticed that she does get it after fatty food intake. The pain is dull and 5/10 in severity, occasionally associated with nausea; otherwise, no vomiting. No heartburn or bloating or burping. She has tried Prilosec for 2 weeks; it did not help. The urgent care doctor did order the right upper quadrant ultrasound. The patient today here to follow up on that. According to the patient, she continues to have this epigastric pain; otherwise, no other concern. PAST MEDICAL HISTORY: Juvenile rheumatoid arthritis. MEDICATIONS: Reviewed from LastWord today. ADR/ALLERGIES: NKDA. SOCIAL HISTORY: Patient does smoke. No alcohol. No illicit drug use. No caffeine intake. OBJECTIVE: VS: BP: ??110/62??. P: 92. Wt: 130 lb. GENERAL: Patient is comfortable, no acute distress. CARDIOVASCULAR: S1 and S2 regular. LUNGS: Clear to auscultation bilaterally. ABDOMEN: Patient does has some epigastric tenderness present. The abdomen is soft, nondistended, nontender. Positive bowel sounds. ASSESSMENT: Intermittent epigastric pain, concern for gallbladder functioning versus gastritis. PLAN: Recommended to take Prilosec 20 mg twice a day. Since the right upper quadrant ultrasound is negative, I am going to proceed with a HIDA scan. Recommended to follow if she continues to have the symptoms and the patient agreed. SS:[id number] C: 11/17/08 09:05 CONFIRM #: [id number] documented in this encounter Plan of Treatment Upcoming Encounters Date Type Specialty Care Team Description 05/18/2022 Appointment Rheumatology Erasmo Horn MD [address] [facility] [facility] [id number] (Wo rk) documented as of this encounter Visit Diagnoses Not on filedocumented in this encounter Care Teams Wire Splicer Relationship Specialty Start Date End Date Md Valentin MD PCP - General 11/28/10 03/07/15 [place], [place] [phone] documented as of this encounter
--- OUTSIDE RECORDS SUMMARY | 2022-05-17 08:34 | XMS_ITS | Encounter Summary ---
:1985 Author Organization [facility] Address [address] [place] [address] Care Team Providers Name Role Phone Unavailable Primary Care Provider Unavailable Encounter Details Date Type Department Care Team Description 11/23/2008 Hospital Encounter [place]ENT[place] [address] [place], [place] [address] (Wo rk) Social History [...] package directions unknown medication Indications: PN: 0 11/16/2008 08/22/2010 [...] 04/17/2005 08/22/2010 documented as of this encounter Plan of Treatment Upcoming Encounters Date Type Specialty Care Team Description 05/18/2022 Appointment Rheumatology Erasmo Horn MD [address] [facility] N [address] (Wo rk) documented as of this encounter Procedures Procedure Name Priority Date/Time Associated Comments Diagnosis NM HEPATOBILIARY WITH Routine 11/23/2008 2:17 PM Results for this EJECTION FRACTION CDT procedure are in the results section. documented in this encounter Results NM Hepatobiliary With Ejection Fraction (11/23/2008 2:17 PM CDT) Anatomical Region Laterality Modality Abdomen Other Specimen (Source) Anatomical Location Collection Method / Collectio n Time Received Time / Laterality Volume Impressions 11/23/2008 2:17 PM CDT : ??Normal hepatobiliary scan with gallbladder stimulation. [id number]/pj Dictating KRISTI JAQUEZ RADIOLOGIST Narrative 11/23/2008 2:17 PM CDT NUCLEAR MEDICINE HEPATOBILIARY SCAN WITH GALLBLADDER STIMULATION 11/23/2008 CLINICAL DATA: ??Abdominal pain. TECHNIQUE: ??The patient was injected wi th 6.2 mCi of Tc-99m Choletec. Imaging was then performed over the abdo men to 30 minutes. ??The patient was then infused with 1.2 mcg of Kinevac over a 30-minute period. ??Additional imaging was then pe rformed. FINDINGS: ??Pre-Kinevac administration d emonstrates normal extraction and excretion by the liver. ??Bile ducts and gallbladder are both visualized at the time of the 10 to 15-m inute delayed image and activity is seen within the bowel at the time of the 15 to 20-minute delayed image. Following the CCK administration, there is further activity accumulating within the small bowel and decrease in gallbladder size. The gallbladder ejection fraction is tari sured at 69% over 30 minutes. This is within normal limits. Procedure Note Kristi Womack - 10/26/2016Formatting o f this note might be different from the original. NUCLEAR MEDICINE HEPATOBILIARY SCAN WITH GALLBLADDER STIMULATION 11/23/2008 CLINICAL DATA: Abdominal pain. TECHNIQUE: The patient was injected with 6.2 mCi of Tc-99m Choletec. Imaging was then performed over the abdo men to 30 minutes. The patient was then infused with 1.2 mcg of Kinevac over a 30-minute period. Additional imaging was then perf ormed. FINDINGS: Pre-Kinevac administration dem onstrates normal extraction and excretion by the liver. Bile ducts a nd gallbladder are both visualized at the time of the 10 to 15-m inute delayed image and activity is seen within the bowel at the time of the 15 to 20-minute delayed image. Following the CCK administration, there is further activity accumulating within the small bowel and decrease in gallbladder size. The gallbladder ejection fraction is tari sured at 69% over 30 minutes. This is within normal limits. IMPRESSION : Normal hepatobiliary scan with gallbla dder stimulation. [id number]/pj Ashaating KRISTI JAQUEZ RADIOLOGIST Kat Ruby MD RAD NM documented in this encounter Visit Diagnoses Not on filedocumented in this encounter
--- OUTSIDE RECORDS SUMMARY | 2022-05-17 08:34 | XMS_ITS | Encounter Summary ---
:1985 Author Organization [email or web address] Address [address] [place] [address] Care Team Providers Name Role Phone Md YOBANI Valentin Primary Care Provider Encounter Details Date Type Department Care Team Description 04/27/2009 Nursing Visit [facility] [address] Christina Hernadez MD Plastic Surgery [address] [facility] [address] [place] [address] [phone] Social History Tobacco Use Types Packs/Day Years Used Date Smoking Tobacco: Never Assessed Sex Assigned at Date Recorded Not on file documented as of this encounter Progress Notes Desire Murillo RN - 04/27/2009 12:01 AM CDT Progress Notes signed by Desire Murillo RN at 04/27/09 1401 Author: Desire Murillo RN Service: (none) Author Type: Registered Nurse Filed: 04/27/09 0000 Note Time: 04/27/09 0001 Status: Signed Assurance Officer: Desire Murillo RN (Registered Nurse) pt here for suture removal. Incision looked healed. Sutures were removed and steri-strips applied. Pt. tolerated procedure well. Will call pt with pathology report, at this time it is still pending. All questions were answered. Pt. will follow up as needed. documented in this encounter Plan of Treatment Upcoming Encounters Date Type Specialty Care Team Description 05/18/2022 Appointment Rheumatology Erasmo Horn MD [address] [facility] [address] [facility] [id number] (Wo rk) documented as of this encounter Visit Diagnoses Not on filedocumented in this encounter Care Teams Outside Sales Engineer Relationship Specialty Start Date End Date Md Valentin MD PCP - General 11/28/10 03/07/15 [place] [address] documented as of this encounter
--- OUTSIDE RECORDS SUMMARY | 2022-05-17 08:34 | XMS_ITS | Encounter Summary ---
:1985 Author Organization [employer] Address [address] [place] [address] Care Team Providers Name Role Phone Md YOBANI Valentin Primary Care Provider Encounter Details Date Type Department Care Team Description 03/01/2009 PN Conversion Only [place] [facility] N Nathan Lopez, [address] [place] [id number] [place] [address] [place] [phone] (Wo rk) Social History Tobacco Use Types Packs/Day Years Used Date Smoking Tobacco: Never Assessed Sex Assigned at Date Recorded Not on file documented as of this encounter Plan of Treatment Upcoming Encounters Date Type Specialty Care Team Description 05/18/2022 Appointment Rheumatology Erasmo Horn MD [address] [facility] N [phone] (Wo rk) documented as of this encounter Procedures Procedure Name Priority Date/Time Associated Comments Diagnosis STREP GROUP A ANTIGEN Routine 03/01/2009 3:36 PM Results for this TEST CDT procedure are i n the results section. BETA STREP FOLLOWUP Routine 03/01/2009 3:36 PM Re sults for this CDT procedure are i n the results section. MONONUCLEOSIS SCREEN Routine 03/01/2009 2:59 PM R esults for this CDT procedure are i n the results section. DIFFERENTIAL RULE Routine 03/01/2009 2:59 PM Resu lts for this MANUAL CDT procedure are i n the results section. COMPLETE BLOOD Routine 03/01/2009 2:59 PM Results for this COUNT-W/DIFF CDT procedure are i n the results section. documented in this encounter Results Strep Group A Antigen Test (03/01/2009 3:36 PM CDT) Analysis Performed At Patho logist Time Signature Strep Group A Negative Negative HP CONVERSION Antigen Test Comment: Culture to follow. Specimen (Source) Anatomical Collection Method Collection Time Re ceived Time Location / / Volume Laterality 03/01/2009 3:36 PM CDT Nathan Lopez PA-C LAB_1 Performing Organization Address City/State/ZIP Code Phon e Number HP CONVERSION Beta Strep Followup (03/01/2009 3:36 PM CDT) P athologist Signature Strep Screen SEE TEXT HP CONVERSION Comment: Patient: MANJIT DOHERTY Rapid Strep Follow up Culture ? Collected: ??[id number] Source: Throat ?Processed: ??[id number] ??[id number] ? 1V Final Report ------ ?[id number] ??[id number] No beta hemolytic Strep group A isolated . Specimen (Source) Anatomical Collection Method Collection Time Re ceived Time Location / / Volume Laterality 03/01/2009 3:36 PM CDT Nathan J Stanislaus PA-C LAB_1 Performing Organization Address City/[facility] Phon e Number HP CONVERSION (ABNORMAL) Mononucleosis Screen (03/01/2009 2:59 PM CDT) [facility] Method Time Signature Infectious Positive Negative HP CONVERSION Mononucleosis (A) Screen Specimen (Source) Anatomical Collection Method Collection Time Re ceived Time Location / / Volume Laterality 03/01/2009 2:59 PM CDT Nathan Lopez PA-C LAB_1 Performing Organization Address [facility] Phon e Number HP CONVERSION Complete Blood Count-W/Diff (03/01/2009 2:59 PM CDT) [facility] Method Time Signature White Blood Cell 6.9 3.8 - 11.0 [facility]VER[facility] N Count K/cmm Red Blood Cell 4.52 3.70 - HP CONVERSION Count 5.20 m/cmm Hemoglobin 13.0 11.8 - HP CONVERSION 15.5 gm/dL Hematocrit 38.3 35.0 - HP CONVERSION 46.0 % Mean Corpuscular 84.8 80.0 - HP CONVERSION Volume 100.0 fl Mean Corpuscular 28.8 27.0 - HP CONVERSION Hemoglobin 34.0 pg Mean Corpuscular 34.0 32.0 - HP CONVERSION Hemoglobin Conc 36.5 gm/dL [place] RDW 12.0 11.0 - HP CONVERSION 15.0 % Platelet Count 161 140 - 450 HP CONVERSION k/cmm Differential Manl Dif No normal HP CONVERSION Verify range Specimen (Source) Anatomical Collection Method Collection Time Re ceived Time Location / / Volume Laterality 03/01/2009 2:59 PM CDT Nathan Lopez PA-C LAB_1 Performing Organization Address [facility] Phon e Number HP CONVERSION (ABNORMAL) Differential Rule Manual (03/01/2009 2:59 PM CDT) [facility] Method Time Signature Neutrophils 20 (L) 50 - 70 % HP CONVERSION Bands 6 (H) 0 - 5 % HP CONVERSION Lymphocytes 70 20 - 40 % HP CONVERSION Monocyte 4 (L) 5 - 14 % HP CONVERSION Platelet Normal No normal HP CONVERSION Estimate range Lymphocyte Moderate No normal HP CONVERSION Reactive range RBC Morphology Normal No normal HP CONVERSION range Comment: RBC's appear normochromic and n ormocytic. Neutrophils Absolute Count 1.8 (L) 2.0 - 7.5 K/cmm HP CONVERSION Specimen (Source) Anatomical Collection Method Collection Time Re ceived Time Location / / Volume Laterality 03/01/2009 2:59 PM CDT Nathan Lopez PA-C LAB_1 Performing Organization Address City/State/ZIP Code Phon e Number HP CONVERSION documented in this encounter Visit Diagnoses Not on filedocumented in this encounter Care Teams Svp Digital Sales Relationship Specialty Start Date End Date Md Valentin MD PCP - General 11/28/10 03/07/15 [place] [address] documented as of this encounter
--- OUTSIDE RECORDS SUMMARY | 2022-05-17 08:35 | XMS_ITS | Encounter Summary ---
:1985 Author Organization [employer] Address [address] [place] [address] Care Team Providers Name Role Phone Md YOBANI Valentin Primary Care Provider Reason for Visit Reason Comments Other Encounter Details Date Type Department Care Team Description 10/10/2006 Telephone [facility] Jenny Valero [address] [place] [address] Social History Tobacco Use Types Packs/Day Years Used Date Smoking Tobacco: Never Assessed Sex Assigned at Date Recorded Not on file documented as of this encounter Progress Notes Jenny Mims - 10/10/2006 2:12 PM CST Phone Note filed by Jenny Mims RN at 12/13/10 9510 Author: Jenny Mims RN Service: (none) Author Type: Registered Nurse Filed: 12/13/10 1544 Note Time: 10/10/06 1412 Status: Signed Rn Postpartum: Jenny Mims RN (Registered Nurse) gigi's dad called. 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 She was seen there about 1 week ago for intermittent chest pain. She was told she has some fluid around her heart(?). She is on an antibiotic and she is attending classes. She will be home Sunday. Appt. butler with Dr. Rendon in the am 16.. Fax # given in case they can fax over any information from the clinic she was seen at. Created on [id number] 2:12pm by JENNY MIMS [facility] documented in this encounter Plan of Treatment Upcoming Encounters Date Type Specialty Care Team Description 05/18/2022 Appointment Rheumatology Erasmo Horn MD [address] [facility] [address] (Wo rk) documented as of this encounter Visit Diagnoses Not on filedocumented in this encounter Care Teams Administrative Clerk Relationship Specialty Start Date End Date Md Valentin MD PCP - General 11/28/10 03/07/15 [place] [address] documented as of this encounter
--- OUTSIDE RECORDS SUMMARY | 2022-05-17 08:35 | XMS_ITS | Encounter Summary ---
:1985 Author Organization [employer] Address [address] [place] [address] Care Team Providers Name Role Phone Md YOBANI Valentin Primary Care Provider Encounter Details Date Type Department Care Team Description 03/26/2006 Office Visit [facility] [place] [id number] [place] [phone] (Wo rk) Social History Tobacco Use Types Packs/Day Years Used Date Smoking Tobacco: Never Assessed Sex Assigned at Date Recorded Not on file documented as of this encounter Last Filed Vital Signs Vital Sign Reading Time Taken Comments Blood Pressure 120/71 03/26/2006 12:00 PM CDT Pulse 96 03/26/2006 12:00 PM CDT Temperature 36.9 ??C (98.4 ??F) 03/26/2006 12:00 PM CDT C: 3 6.9 C Respiratory Rate 16 03/26/2006 12:00 PM CDT Oxygen Saturation - - Inhaled Oxygen Concentration - - Weight - - Height - - Body Mass Index - - documented in this encounter Progress Notes Hugo Gold MD - 03/26/2006 12:01 AM CDT Progress Notes signed by Hugo Gold MD at 04/28/06 8823 Author: Hugo Gold MD Service: (none) Author Type: Physician Filed: 12/16/10 1347 Note Time: 03/26/06 0001 Status: Signed Anime Artist: Hugo Gold MD (Physician) NAME: MANJIT DOHERTY MR: [id number] ACCT: [id number] VISIT: [id number] DICTATING CLINICIAN: HUGO GOLD MD JOB: [id number] LOC: 520 CLINIC PROGRESS NOTE DATE OF VISIT: 03/26/2006 SUBJECTIVE: CHIEF COMPLAINT: Left foot pain. HPI: This pleasant 20-year-old comes in today complaining of left foot pain. Patient stepped off a step approximately 3 days ago and says that since that time she has had trouble with her left foot. It hurts right at the base of her second and third toes. It is tender when she walks. There is some swelling. PAST MEDICAL HISTORY: Rheumatoid arthritis. PAST SURGICAL HISTORY: None. MEDICATIONS: Reviewed in LastWord. ADR/ALLERGIES: NO KNOWN DRUG ALLERGIES. OBJECTIVE: VS: BP: 120/71. T: 98.4. P: 96. R: 15. GENERAL: Alert and oriented in no apparent distress. LUNGS: Clear. HEART: Regular. LEFT FOOT: Does reveal some mild swelling. Tenderness at the base of the second and third phalanx. Good flexion and extension of her toes. She is limping slightly when she walks. X-ray reveals no obvious fracture or dislocation. ASSESSMENT: Left foot contusion. PLAN: Rest, ice, ibuprofen. Surgical shoe for comfort. That did seem to help. I want her to follow up with a primary care health provider if symptoms persist or worsen. KMM:[id number] C: 03/28/06 04:12 DOCUMENT: [id number] documented in this encounter Plan of Treatment Upcoming Encounters Date Type Specialty Care Team Description 05/18/2022 Appointment Rheumatology Erasmo Horn MD [address] [place] [address] (Wo rk) documented as of this encounter Procedures Procedure Name Priority Date/Time Associated Diagnosis Comme nts XR FOOT LT 3+ VIEWS Routine 03/26/2006 12:45 PM R esults for this CDT procedure are i n the results section. documented in this encounter Results XR Foot Lt 3+ Views (03/26/2006 12:45 PM CDT) Anatomical Region Laterality Modality Lower Extremity, Foot Other Specimen (Source) Anatomical Location Collection Method / Collectio n Time Received Time / Laterality Volume Narrative 03/26/2006 12:45 PM CDT Findings: BN1 No radiographic evidence of bone or join t abnormality. Dictating DON ALMAGUER MD Procedure Note Don Tanner - 11/02/2016 Findings: BN1 No radiographic evidence of bone or join t abnormality. Dictating DON ALMAGUER MD Hugo Gold MD RAD GD documented in this encounter Visit Diagnoses Not on filedocumented in this encounter Care Teams [employer] Principal Relationship Specialty Start Date End Date Md Valentin MD PCP - General 11/28/10 03/07/15 [place] [address] documented as of this encounter
--- OUTSIDE RECORDS SUMMARY | 2022-05-17 08:35 | XMS_ITS | Encounter Summary ---
:1985 Author Organization [facility] Address [address] [place] [address] Care Team Providers Name Role Phone Md YOBANI Valentin Primary Care Provider Encounter Details Date Type Department Care Team Description 05/24/2006 PN Conversion Only [place] [facility] [address] [address] [place] [address] Social History Tobacco Use Types Packs/Day Years Used Date Smoking Tobacco: Never Assessed Sex Assigned at Date Recorded Not on file documented as of this encounter Progress Notes Tavia Naik PA-C - 05/19/2009 12:01 AM CDT Progress Notes signed by Tavia Alfonso PA-C at 05/19/09 1455 Author: Tavia Alfonso PA-C Service: (none) Author Type: Physician Ent Consultant Filed: 12/17/10 6680 Note Time: 05/19/09 0001 Status: Signed Health Psychologist: Tavia Alfonso PA-C (Physician Ent Consultant) Patient to consult Mohs regarding removal of moderately atypical nevus of the left forhead and for excision of a severely atypical nevus of the right shoulder and 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 Tavia Naik PA-C - 02/24/2009 12:01 AM CDT Progress Notes signed by Tavia Alfonso PA-C at 02/24/09 1044 Author: Tavia Alfonso PA-C Service: (none) Author Type: Physician Ent Consultant Filed: 12/17/10 1439 Note Time: 02/24/09 0001 Status: Signed Health Psychologist: Tavia Alfonso PA-C (Physician Ent Consultant) Liaan is to consult Plastic Surgery regarding possible removal of a moderately atypical nevus on the left upper inner quadrant of the left breast. Pictures are in ScanDoc. documented in this encounter Plan of Treatment Upcoming Encounters Date Type Specialty Care Team Description 05/18/2022 Appointment Rheumatology Erasmo Horn MD [address] [facility] [address] (Wo rk) documented as of this encounter Visit Diagnoses Not on filedocumented in this encounter Care Teams Production Cell Leader Relationship Specialty Start Date End Date Md Valentin MD PCP - General 11/28/10 03/07/15 [place], [place] [phone] documented as of this encounter
--- OUTSIDE RECORDS SUMMARY | 2022-05-17 08:35 | XMS_ITS | Encounter Summary ---
:1985 Author Organization [employer] Address [address] [place] [address] Care Team Providers Name Role Phone Md YOBANI Valentin Primary Care Provider Encounter Details Date Type Department Care Team Description 08/17/2006 PN Conversion Only [place] [facility] [place], [address] [facility] [place] [address] [address] [place] [address] (Wo rk) Social History Tobacco Use Types Packs/Day Years Used Date Smoking Tobacco: Never Assessed Sex Assigned at Date Recorded Not on file documented as of this encounter Plan of Treatment Upcoming Encounters Date Type Specialty Care Team Description 05/18/2022 Appointment Rheumatology Erasmo Horn MD [address] [place] [facility] [address] (Wo rk) documented as of this encounter Procedures Procedure Name Priority Date/Time Associated Diagnosis Comme nts COMPLETE BLOOD Routine 08/17/2006 5:00 PM Results for this COUNT-W/DIFF PHOTO MASK CLEANER procedure are i n the results section. ALT (SGPT) Routine 08/17/2006 5:00 PM Results f or this PHOTO MASK CLEANER procedure are i n the results section. ALBUMIN Routine 08/17/2006 5:00 PM Results f or this PHOTO MASK CLEANER procedure are i n the results section. documented in this encounter Results (ABNORMAL) Complete Blood Count-W/Diff (08/17/2006 5:00 PM PHOTO MASK CLEANER) [facility] Method Time Signature White Blood Cell 7.5 3.8 - 11.0 [place] [facility] N Count K/cmm Red Blood Cell 4.82 3.70 - HP CONVERSION Count 5.20 m/cmm Hemoglobin 12.7 11.8 - HP CONVERSION 15.5 gm/dL Hematocrit 38.5 35.0 - HP CONVERSION 46.0 % Mean Corpuscular 79.9 (L) 80.0 - HP CONVERSION Volume 100.0 fl Mean Corpuscular 26.3 (L) 27.0 - HP CONVERSION Hemoglobin 34.0 pg Mean Corpuscular 32.9 32.0 - HP CONVERSION Hemoglobin Conc 36.5 gm/dL [place] RDW 14.0 11.0 - HP CONVERSION 15.0 % Platelet Count 319 140 - 450 HP CONVERSION k/cmm Differential Auto-Dif No normal HP CONVERSION Verify range Neutrophils 5.1 2.0 - 7.5 HP CONVERSION Absolute Count K/cmm Neutrophil 67.5 50.0 - HP CONVERSION 75.0 % Lymphocyte % 24.7 20.0 - HP CONVERSION 40.0 % Monocyte 5.6 5.0 - 14.0 HP CONVERSION % Eosinophil 1.6 0.0 - 6.0 HP CONVERSION % Basophil % 0.6 0.0 - 2.0 HP CONVERSION % Specimen (Source) Anatomical Collection Method Collection Time Re ceived Time Location / / Volume Laterality 08/17/2006 5:00 PM PHOTO MASK CLEANER Jaylon Aleman MD LAB_1 Performing Organization Address City/State/ZIP Code Phon e Number HP CONVERSION ALT (SGPT) (08/17/2006 5:00 PM PHOTO MASK CLEANER) [facility] Method Time Signature Alanine 41 0 - 65 HP CONVERSION Aminotransferase U/L Specimen (Source) Anatomical Collection Method Collection Time Re ceived Time Location / / Volume Laterality 08/17/2006 5:00 PM PHOTO MASK CLEANER Jaylon Aleman MD LAB_1 Performing Organization Address City/State/ZIP Code Phon e Number HP CONVERSION Albumin (08/17/2006 5:00 PM PHOTO MASK CLEANER) athologist Signature Albumin 4.6 3.0 - 5.0 HP CONVERSION g/dL Specimen (Source) Anatomical Collection Method Collection Time Re ceived Time Location / / Volume Laterality 08/17/2006 5:00 PM PHOTO MASK CLEANER Jaylon Aleman MD LAB_1 Performing Organization Address City/State/ZIP Code Phon e Number HP CONVERSION documented in this encounter Visit Diagnoses Not on filedocumented in this encounter Care Teams Manager Estate Relationship Specialty Start Date End Date Md Homero, PCP - General 11/28/10 03/07/15 [place] [address] documented as of this encounter
--- OUTSIDE RECORDS SUMMARY | 2022-05-17 08:35 | XMS_ITS | Encounter Summary ---
:1985 Author Organization [facility] Address [address] [place] [address] Care Team Providers Name Role Phone Md YOBANI Valentin Primary Care Provider Encounter Details Date Type Department Care Team Description 11/06/2008 PN Conversion Only [facility] [address] [place] [address] Social History Tobacco Use Types Packs/Day Years Used Date Smoking Tobacco: Never Assessed Sex Assigned at Date Recorded Not on file documented as of this encounter Plan of Treatment Upcoming Encounters Date Type Specialty Care Team Description 05/18/2022 Appointment Rheumatology Erasmo Horn MD [address] [facility] [place] [address] (Wo rk) documented as of this encounter Procedures Procedure Name Priority Date/Time Associated Diagnosis Comme nts US ABD RUQ ORGANS Routine 11/06/2008 8:26 AM Resu lts for this CDT procedure are i n the results section. documented in this encounter Results US Abd RUQ Organs (11/06/2008 8:26 AM CDT) Anatomical Region Laterality Modality Abdomen Other Specimen (Source) Anatomical Location Collection Method / Collectio n Time Received Time / Laterality Volume Impressions 11/06/2008 8:26 AM CDT : ??Negative right upper quadrant ultrasound. [id number] Dictating ADRIÁN BENTON Radiologist Narrative 11/06/2008 8:26 AM CDT COMPARISON: ??None. CLINICAL HISTORY: ??22-year-old female w ith abdominal pain. FINDINGS: ??Liver is homogeneous in its echotexture without evidence for focal masses or intrahepatic biliary dilatation. ??The gallbladder contains no stones. ??The gallbladder wa ll and common bile duct measure within the normal range. The right kidney measures 10.9 cm in anjum gth, and there is no hydronephrosis. ??Visualized portions of the pancreas are unremarkable. Procedure Note Adrián Shi MD - 10/26/2016Formattin g of this note might be different from the original. COMPARISON: None. CLINICAL HISTORY: 22-year-old female wit h abdominal pain. FINDINGS: Liver is homogeneous in its ec hotexture without evidence for focal masses or intrahepatic biliary dilatation. The gallbladder contains no stones. The gallbladder wall and common bile duct measure within the normal range. The right kidney measures 10.9 cm in anjum gth, and there is no hydronephrosis. Visualized portions of t he pancreas are unremarkable. IMPRESSION : Negative right upper quadrant ultrasou nd. [id number] Dictating ADRIÁN BENTON Radiologist Rock Mcneil MD RAD documented in this encounter Visit Diagnoses Not on filedocumented in this encounter Care Teams Circulation Librarian Relationship Specialty Start Date End Date Md Valentin MD PCP - General 11/28/10 03/07/15 [place] [address] documented as of this encounter
--- OUTSIDE RECORDS SUMMARY | 2022-05-17 08:35 | XMS_ITS | Encounter Summary ---
:1985 Author Organization [employer] Address [address] [place] [address] Care Team Providers Name Role Phone Md YOBANI Valentin Primary Care Provider Encounter Details Date Type Department Care Team Description 06/30/2008 PN Conversion Only SUSAN CONVERSIO N Love, [address] [facility] [place] [address] [address] [place] [address] (Wo rk) Social History Tobacco Use Types Packs/Day Years Used Date Smoking Tobacco: Never Assessed Sex Assigned at Date Recorded Not on file documented as of this encounter Plan of Treatment Upcoming Encounters Date Type Specialty Care Team Description 05/18/2022 Appointment Rheumatology Erasmo Horn MD [address] [facility] N [address] (Wo rk) documented as of this encounter Procedures Procedure Name Priority Date/Time Associated Diagnosis Comme nts COMPLETE BLOOD Routine 06/30/2008 2:56 PM Results for this COUNT-W/DIFF FIRE INVESTIGATION MANAGER procedure are i n the results section. ALT (SGPT) Routine 06/30/2008 2:56 PM Results f or this FIRE INVESTIGATION MANAGER procedure are i n the results section. ALBUMIN Routine 06/30/2008 2:56 PM Results f or this FIRE INVESTIGATION MANAGER procedure are i n the results section. documented in this encounter Results (ABNORMAL) Complete Blood Count-W/Diff (06/30/2008 2:56 PM FIRE INVESTIGATION MANAGER) [facility] Method Time Signature White Blood Cell 6.1 3.8 - 11.0 HP CONVERSIO N Count K/cmm Red Blood Cell 4.73 3.70 - HP CONVERSION Count 5.20 m/cmm Hemoglobin 14.2 11.8 - HP CONVERSION 15.5 gm/dL Hematocrit 41.7 35.0 - HP CONVERSION 46.0 % Mean Corpuscular 88.0 80.0 - HP CONVERSION Volume 100.0 fl Mean Corpuscular 30.0 27.0 - HP CONVERSION Hemoglobin 34.0 pg Mean Corpuscular 34.1 32.0 - HP CONVERSION Hemoglobin Conc 36.5 gm/dL [place] RDW 12.5 11.0 - HP CONVERSION 15.0 % Platelet Count 267 140 - 450 HP CONVERSION k/cmm Differential Auto-Dif No normal HP CONVERSION Verify range Neutrophils 4.3 2.0 - 7.5 HP CONVERSION Absolute Count K/cmm Neutrophil 70.1 50.0 - HP CONVERSION 75.0 % Lymphocyte % 25.0 20.0 - HP CONVERSION 40.0 % Monocyte 3.4 (L) 5.0 - 14.0 HP CONVERSION % Eosinophil 0.9 0.0 - 6.0 HP CONVERSION % Basophil % 0.6 0.0 - 2.0 HP CONVERSION % Specimen (Source) Anatomical Collection Method Collection Time Re ceived Time Location / / Volume Laterality 06/30/2008 2:56 PM FIRE INVESTIGATION MANAGER Jaylon Aleman MD LAB_1 Performing Organization Address City/State/ZIP Code Phon e Number HP CONVERSION ALT (SGPT) (06/30/2008 2:56 PM FIRE INVESTIGATION MANAGER) [facility] Method Time Signature Alanine 10 4 - 55 HP CONVERSION Aminotransferase U/L Specimen (Source) Anatomical Collection Method Collection Time Re ceived Time Location / / Volume Laterality 06/30/2008 2:56 PM FIRE INVESTIGATION MANAGER Jaylon Aleman MD LAB_1 Performing Organization Address City/State/ZIP Code Phon e Number HP CONVERSION Albumin (06/30/2008 2:56 PM FIRE INVESTIGATION MANAGER) athologist Signature Albumin 4.8 3.4 - 5.0 HP CONVERSION g/dL Specimen (Source) Anatomical Collection Method Collection Time Re ceived Time Location / / Volume Laterality 06/30/2008 2:56 PM FIRE INVESTIGATION MANAGER Jaylon Aleman MD LAB_1 Performing Organization Address City/State/ZIP Code Phon e Number HP CONVERSION documented in this encounter Visit Diagnoses Not on filedocumented in this encounter Care Teams Airplane Navigator Relationship Specialty Start Date End Date Md Homero, PCP - General 11/28/10 03/07/15 [place] [address] documented as of this encounter
--- OUTSIDE RECORDS SUMMARY | 2022-05-17 08:35 | XMS_ITS | Encounter Summary ---
:1985 Author Organization [employer] Address [address] [place] [address] Care Team Providers Name Role Phone Md YOBANI Valentin Primary Care Provider Encounter Details Date Type Department Care Team Description 04/28/2008 Nursing Visit [facility] Bora Mason MD [facility] [place] [address] [place] [address] [place] [address] [phone] (Wo rk) Social History Tobacco Use Types Packs/Day Years Used Date Smoking Tobacco: Never Assessed Sex Assigned at Date Recorded Not on file documented as of this encounter Plan of Treatment Upcoming Encounters Date Type Specialty Care Team Description 05/18/2022 Appointment Rheumatology Erasmo Horn MD [address] [facility] N [address] (Wo rk) documented as of this encounter Visit Diagnoses Not on filedocumented in this encounter Care Teams Space Operations Relationship Specialty Start Date End Date Md Valentin MD PCP - General 11/28/10 03/07/15 [place], [place] [id number] documented as of this encounter
--- OUTSIDE RECORDS SUMMARY | 2022-05-17 08:35 | XMS_ITS | Encounter Summary ---
:1985 Author Organization [employer] Address [address] [place] [address] Care Team Providers Name Role Phone Md YOBANI Valentin Primary Care Provider Encounter Details Date Type Department Care Team Description 06/04/2008 Office Visit [facility] Isabell Alicia PA-C [address] [address] [place] [address] [phone] (Wo rk) Social History Tobacco Use Types Packs/Day Years Used Date Smoking Tobacco: Never Assessed Sex Assigned at Date Recorded Not on file documented as of this encounter Last Filed Vital Signs Vital Sign Reading Time Taken Comments Blood Pressure 110/64 06/04/2008 2:24 PM CDT Pulse 70 06/04/2008 2:24 PM CDT Temperature - - Respiratory Rate - - Oxygen Saturation - - Inhaled Oxygen Concentration - - Weight 59.9 kg (131 lb 15.8 oz) 06/04/2008 2:24 PM CDT C: 59.9kg Height - - Body Mass Index 24.54 05/26/2008 11:32 AM CDT documented in this encounter Progress Notes Isabell James PA-C - 06/04/2008 12:01 AM CDT Progress Notes signed by Isabell James PA-C at 06/17/08 0805 Author: Isabell James PA-C Service: (none) Author Type: Physician Clay Pigeon Setter Filed: 12/17/10 5813 Note Time: 06/04/08 0001 Status: Signed Line O Scribe Operator: Isabell James PA-C (Physician Clay Pigeon Setter) NAME: MANJIT DOHERTY MR#: [id number] ACCT: [id number] VISIT: [id number] DICTATING CLINICIAN: ABIEL SIM CONFIRM #: [id number] LOC: 502 CLINIC PROGRESS NOTE DATE OF VISIT: 06/04/2008 SUBJECTIVE: Manijt is a 22-year-old female who comes to the clinic today concerned about a rash affecting her elbows bilaterally. It started on the right, now it is on the left. It is not particularly itchy. It has been this way for the past 2 weeks. She tried hydrocortisone cream. It did not help. No one else has had this rash. She has not used any new products. PAST MEDICAL HISTORY: Reviewed and updated in the health profile in [employer] today. MEDICATIONS: Reviewed and updated in the health profile in [employer] today. ADR/ALLERGIES: REVIEWED AND UPDATED IN THE HEALTH PROFILE IN [facility]ST[employer] TODAY. OBJECTIVE: VS: BP: 110/64. P: 70. Wt: 132. CONSTITUTIONAL: Sitting comfortably, appears well. She has a red, raised, maculopapular-appearing rash, which is somewhat eczematous in nature, affecting the left and right elbows. There is no obvious central clearing, not a lot of flaking. The rest of the skin appears clear. ASSESSMENT: 1. Dermatitis of elbows. PLAN: Triamcinolone ointment, apply t.i.d. x2 weeks. If symptoms fail to improve, follow up. AMS:[id number] C: 06/04/08 17:35 CONFIRM #: [id number] documented in this encounter Plan of Treatment Upcoming Encounters Date Type Specialty Care Team Description 05/18/2022 Appointment Rheumatology Erasmo Horn MD [address] [place] [address] (Wo rk) documented as of this encounter Visit Diagnoses Not on filedocumented in this encounter Care Teams Recreation Center Director Relationship Specialty Start Date End Date Pnc, Md, PCP - General 11/28/10 03/07/15 [place] [address] documented as of this encounter
--- OUTSIDE RECORDS SUMMARY | 2022-05-17 08:35 | XMS_ITS | Encounter Summary ---
:1985 Author Organization [email or web address] Address [address] [place] [address] Care Team Providers Name Role Phone Md YOBANI Valentin Primary Care Provider Encounter Details Date Type Department Care Team Description 06/24/2008 PN Conversion Only HARMONY CONVERSIO N Helena Cannon [address] [address] [facility] [place] [address] [facility] [address] [place] [address] Social History Tobacco Use Types Packs/Day Years Used Date Smoking Tobacco: Never Assessed Sex Assigned at Date Recorded Not on file documented as of this encounter Plan of Treatment Upcoming Encounters Date Type Specialty Care Team Description 05/18/2022 Appointment Rheumatology Erasmo Horn MD [address] [facility] [place] N [address] (Wo rk) documented as of this encounter Procedures Procedure Name Priority Date/Time Associated Comments Diagnosis THYROID STIMULATING Routine 06/24/2008 5:30 PM Re sults for this HORMONE CDT procedure are i n the results section. COMPLETE BLOOD Routine 06/24/2008 5:30 PM Results for this COUNT-W/DIFF CDT procedure are i n the results section. D DIMER, QUANTITATIVE Routine 06/24/2008 5:30 PM Results for this CDT procedure are i n the results section. TROPONIN I Routine 06/24/2008 5:30 PM Results f or this CDT procedure are i n the results section. FREE T4 Routine 06/24/2008 5:30 PM Results f or this CDT procedure are i n the results section. BEDSIDE GLUCOSE Routine 06/24/2008 4:41 PM Result s for this MONITOR POCT CDT procedure are i n the results section. documented in this encounter Results (ABNORMAL) Complete Blood Count-W/Diff (06/24/2008 5:30 PM CDT) Patholo gist Method Time Signature White Blood Cell 6.2 3.8 - 11.0 HP CONVERSIO N Count K/cmm Red Blood Cell 4.27 3.70 - HP CONVERSION Count 5.20 m/cmm Hemoglobin 13.0 11.8 - HP CONVERSION 15.5 gm/dL Hematocrit 38.1 35.0 - HP CONVERSION 46.0 % Mean Corpuscular 89.1 80.0 - HP CONVERSION Volume 100.0 fl Mean Corpuscular 30.5 27.0 - HP CONVERSION Hemoglobin 34.0 pg Mean Corpuscular 34.3 32.0 - HP CONVERSION Hemoglobin Conc 36.5 gm/dL [place] RDW 12.5 11.0 - HP CONVERSION 15.0 % Platelet Count 294 140 - 450 HP CONVERSION k/cmm Differential Auto-Dif No normal HP CONVERSION Verify range Neutrophils 3.4 2.0 - 7.5 HP CONVERSION Absolute Count K/cmm Neutrophil 57.2 50.0 - HP CONVERSION 75.0 % Lymphocyte % 29.8 20.0 - HP CONVERSION 40.0 % Monocyte 7.4 5.0 - 14.0 HP CONVERSION % Eosinophil 1.5 0.0 - 6.0 HP CONVERSION % Basophil % 4.1 (H) 0.0 - 2.0 HP CONVERSION % Specimen (Source) Anatomical Collection Method Collection Time Re ceived Time Location / / Volume Laterality 06/24/2008 5:30 PM CDT Helena Cannon PA-C LAB_1 Performing Organization Address City/State/ZIP Code Phon e Number HP CONVERSION (ABNORMAL) D Dimer, Quantitative (06/24/2008 5:30 PM CDT) athologist Signature D Dimer 0.50 (H) 0.00 - 0.49 HP CONVERSION ug/mL Comment: A D-dimer level < 0.50 ug/ml in a patien t with a low clinical pretest probability for a 1st episode of DVT (se e venous duplex ultrasound order sheet) can rule out lower extremity DVT (rate of DVT in next 3 months < 2%). Increased D-dimer is seen in thromboembo lism, DIC, liver disease, renal disease, cardiac infarct and failure, ca ncer, , stroke, infection, recent surgery, hemorrhage and age > 70 years. D-dimer levels decrease with anticoagula tion therapy and increasing clot age. Specimen (Source) Anatomical Collection Method Collection Time Re ceived Time Location / / Volume Laterality 06/24/2008 5:30 PM CDT Helena Parsonchasidy BOLAND-C LAB_1 Performing Organization Address City/[facility] Code Phon e Number HP CONVERSION Free T4 (06/24/2008 5:30 PM CDT) athologist Signature Thyroxine, Free 1.4 0.8 - 1.8 HP CONVERSION ng/dL Specimen (Source) Anatomical Collection Method Collection Time Re ceived Time Location / / Volume Laterality 06/24/2008 5:30 PM CDT Helena Parsonchasidy BOLAND-C LAB_1 Performing Organization Address [facility] Code Phon e Number HP CONVERSION Thyroid Stimulating Hormone (06/24/2008 5:30 PM CDT) athologist Signature Thyroid 2.37 0.20 - HP CONVERSION Stimulating 4.50 Hormone uIU/mL Specimen (Source) Anatomical Collection Method Collection Time Re ceived Time Location / / Volume Laterality 06/24/2008 5:30 PM CDT Helena Parsonchasidy BOLAND-C LAB_1 Performing Organization Address [facility]/ZIP Code Phon e Number HP CONVERSION Troponin I (06/24/2008 5:30 PM CDT) athologist Signature TROPONIN I <0.10 0.00 - 0.30 HP CONVERSION ng/mL Specimen (Source) Anatomical Collection Method Collection Time Re ceived Time Location / / Volume Laterality 06/24/2008 5:30 PM CDT Helena Cannon PA-C LAB_1 Performing Organization Address [facility]/ZIP Code Phon e Number HP CONVERSION Bedside Glucose Monitor (06/24/2008 4:41 PM CDT) P athologist Signature Bedside Blood 114 mg/dL HP CONVERSION Glucose Test Comment: Performed at Urgent Care, [address], [place] [address] Specimen (Source) Anatomical Collection Method Collection Time Re ceived Time Location / / Volume Laterality 06/24/2008 4:41 PM CDT Helena Cannon PA-C LAB_1 Performing Organization Address City/State/ZIP Code Phon e Number HP CONVERSION documented in this encounter Visit Diagnoses Not on filedocumented in this encounter Care Teams High School Art Teacher Relationship Specialty Start Date End Date Md Valentin MD PCP - General 11/28/10 03/07/15 [place] [address] documented as of this encounter
--- OUTSIDE RECORDS SUMMARY | 2022-05-17 08:35 | XMS_ITS | Encounter Summary ---
:1985 [facility] Address [address] [place] [address] Care Team Providers Name Role Phone Md YOBANI Valentin Primary Care Provider Encounter Details Date Type Department Care Team Description 06/30/2008 Office Visit [place] Cat[facility] Aleman, [address] [facility] [place] [address] [address] [facility] [phone] [facility] N [address] (Wo rk) Social History Tobacco Use Types Packs/Day Years Used Date Smoking Tobacco: Never Assessed Sex Assigned at Date Recorded Not on file documented as of this encounter Last Filed Vital Signs Vital Sign Reading Time Taken Comments Blood Pressure 110/60 06/30/2008 3:24 PM GENERAL INTERNAL MEDICINE PHYSICIAN Pulse 90 06/30/2008 3:24 PM GENERAL INTERNAL MEDICINE PHYSICIAN Temperature - - Respiratory Rate - - Oxygen Saturation - - Inhaled Oxygen Concentration - - Weight 59.9 kg (131 lb 15.8 oz) 06/30/2008 3:24 PM GENERAL INTERNAL MEDICINE PHYSICIAN C: 59.9kg Height - - Body Mass Index 24.54 05/26/2008 11:32 AM CDT documented in this encounter Progress Notes Jaylon Aleman MD - 06/30/2008 12:01 AM CST Progress Notes signed by Jaylon Aleman MD at 06/30/08 8698 Author: Jaylon Aleman MD Service: (none) Author Type: Physician Filed: 12/17/10 0831 Note Time: 06/30/08 0001 Status: Signed Cementer Helper: Jaylon Aleman MD (Physician) SUBJECTIVE: Follow-up for recent flare of chronic juvenile rheumatoid arthritis. History of present illness: A pleasant 22-year-old female whom I last saw 6 weeks ago when she was found to have flare of her juvenile rheumatoid arthritis. Cortisone injection was provided with a significant benefit. I also resumed methotrexate 12.5 mg weekly. She had a slight flulike symptom a day after. Patient received flu vaccination today. She has not seen any new swollen joints. Past medical history, family and social history, current medications and adverse reactions were updated in EMR. Physical exams: Vital signs per flow sheet. KEARA-II score is 0.8. Pain is rated as 5 out of 10. General appearance: Young female who is not in acute distress. Skin: No rash, tophus, nodules, open-wound ulcers, Raynaud changes, telangiectasia, sclerodermatous and dermatomyositis skin changes, psoriasis, psoriatic nail or anything suggesting vasculitis. Musculoskeletal exams: No significant synovitis or active inflammatory arthritis involving any joints of 4 extremities. Normal gait and normal muscle power and tone. Assessment and plan: 1. Juvenile rheumatoid arthritis. Her knee inflammation has completely subsided. I will continue methotrexate 12.5-mg weekly. I will see the patient back in 3 months. The patient will have the blood test monitoring before the next appointment. Total time is 15 minutes, 10 minutes counseling. *SH~DNS~SOAP RAL INTERNAL MEDICINE PHYSICIAN documented in this encounter Plan of Treatment Upcoming Encounters Date Type Specialty Care Team Description 05/18/2022 Appointment Rheumatology Erasmo Horn MD [address] [facility] [address] (Wo rk) documented as of this encounter Visit Diagnoses Not on filedocumented in this encounter Care Teams Race Steward Relationship Specialty Start Date End Date Md Valentin MD PCP - General 11/28/10 03/07/15 [place], [place] [id number] documented as of this encounter
--- OUTSIDE RECORDS SUMMARY | 2022-05-17 08:35 | XMS_ITS | Encounter Summary ---
:1985 Author Organization [employer] Address [address] [place] [address] Care Team Providers Name Role Phone Md YOBANI Valentin Primary Care Provider Encounter Details Date Type Department Care Team Description 08/28/2008 Office Visit Lars Osorio PA-C [address] [place] [address] [place] [address] [place] [address] [phone] (Wo rk) Social History Tobacco Use Types Packs/Day Years Used Date Smoking Tobacco: Never Assessed Sex Assigned at Date Recorded Not on file documented as of this encounter Last Filed Vital Signs Vital Sign Reading Time Taken Comments Blood Pressure 120/60 08/28/2008 1:08 PM SKYLIGHTS ASSEMBLER Pulse 78 08/28/2008 1:08 PM SKYLIGHTS ASSEMBLER Temperature - - Respiratory Rate - - Oxygen Saturation - - Inhaled Oxygen Concentration - - Weight 59 kg (129 lb 15.7 oz) 08/28/2008 1:08 PM SKYLIGHTS ASSEMBLER C: 59.0kg Height - - Body Mass Index 24.16 05/26/2008 11:32 AM CDT documented in this encounter Progress Notes Lars Ty PA-C - 08/28/2008 12:01 AM CST Progress Notes signed by Lars Ty PA-C at 09/09/08 0748 Author: Lars Ty PA-C Service: (none) Author Type: Physician Showroom Sales Assistant Filed: 12/17/10 0957 Note Time: 08/28/082021 Status: Signed Environmental Control Administrator: Lars Ty PA-C (Physician Showroom Sales Assistant) NAME: MANJIT DOHERTY MR#: [id number] ACCT: [id number] VISIT: [id number] DICTATING CLINICIAN: LARS TY PA-C CONFIRM #: [id number] LOC: 1702 CLINIC PROGRESS NOTE DATE OF VISIT: 08/28/2008 SUBJECTIVE: This 22-year-old presents today with 3 weeks of right-sided low back pain as well as right lateral hip pain. Triggers include exposure to cold and walking around as she does at school it is fine when she is sitting. She can recall no injury. Rate pain at 3 to 4 out of 10. She has no radiation of pain into the right leg or foot. No numbness, tingling, or loss of strength into the leg or groin. No new activities. No treatments tried, and she denies any regular physical activity. She does have a history of juvenile rheumatoid arthritis. She just saw her assistant clinical nurse manager 06/30/08, and symptoms have been stable. She denies any signs of synovitis, no swelling. No other joints are flared at this time. CURRENT MEDICATIONS: Reviewed and updated on patient health profile in LastWord. ADR/ALLERGIES: REVIEWED AND UPDATED ON PATIENT HEALTH PROFILE IN [employer]ST[employer]. Tobacco use, current. OBJECTIVE: VS: Reviewed on flow chart in LastWord. Pleasant, alert, oriented. Appears in no distress. She walks without limp, has normal gait. No obvious deformities over the back of hip. She has not tenderness of the lumbosacral spine spinous processes. No paravertebral muscle tenderness. No SI joint tenderness. Straight-leg raise is negative to 90 degrees bilaterally in the seated position. She does have some tenderness over the greater trochanter. She has full range of motion and flexion, extension, external rotation, internal rotation, abduction and adduction at the hip. She does have a little bit of discomfort on the lateral hip with adduction. Strength L2-1 is 5/5 and bilaterally symmetric. Sensation L2-S2 is intact and symmetric. No lower extremity edema. No signs of synovitis. ASSESSMENT: Musculoligamentous discomfort in the right lumbar region and the right hip. PLAN: Reassurance given no signs of flare of rheumatoid arthritis at this time. She will trial anti-inflammatory. She tolerated the procedure ibuprofen well and will use 2 to 3 tablets 3 times daily with food. Also, precautions given. Also advise that she is hydrating well when on higher doses of ibuprofen. Heat alternating with ice, gentle stretching and range of motion exercises demonstrated and encouraged. Return to clinic as needed for persistent or worsening symptoms. FINAL IMPRESSION: As above. JLS:[id number] C: 09/08/08 16:50 CONFIRM #: [id number] IGHTS ASSEMBLER documented in this encounter Plan of Treatment Upcoming Encounters Date Type Specialty Care Team Description 05/18/2022 Appointment Rheumatology Erasmo Horn MD [address] [facility] [id number] (Wo rk) documented as of this encounter Visit Diagnoses Not on filedocumented in this encounter Care Teams Operations Support Representative Relationship Specialty Start Date End Date Md Valentin MD PCP - General 11/28/10 03/07/15 [place], [place] [id number] documented as of this encounter
--- OUTSIDE RECORDS SUMMARY | 2022-05-17 08:35 | XMS_ITS | Encounter Summary ---
:1985 Author Organization [employer] Address [address] [place] [address] Care Team Providers Name Role Phone Md YOBANI Valentin Primary Care Provider Encounter Details Date Type Department Care Team Description 05/26/2008 PN Conversion Only [place] CONVERSIO N Rosalie Angel, [address] [place] [address] Social History Tobacco Use Types Packs/Day Years Used Date Smoking Tobacco: Never Assessed Sex Assigned at Date Recorded Not on file documented as of this encounter Plan of Treatment Upcoming Encounters Date Type Specialty Care Team Description 05/18/2022 Appointment Rheumatology Erasmo Horn MD [address] [facility] N [id number] (Wo rk) documented as of this encounter Procedures Procedure Name Priority Date/Time Associated Comments Diagnosis GLUCOSE Routine 05/26/2008 12:00 Results for this PM CDT procedure are i n the results section. THYROID STIMULATING Routine 05/26/2008 12:00 Resu lts for this HORMONE PM CDT procedure are i n the results section. LIPID PANEL AND Routine 05/26/2008 12:00 Results for this DIRECT LDL(IF NEEDED) PM CDT proced ure are in the results section. HEMOGLOBIN, BLOOD Routine 05/26/2008 12:00 Result s for this PM CDT procedure are i n the results section. documented in this encounter Results Lipid Panel and Direct LDL(If Needed) (05/26/2008 12:00 PM CDT) Patholo gist Method Time Signature Length Of Fast 12.0 Hours HP CONVERSION Cholesterol/HDL 2.4 No normal HP CONVERSION Ratio Screen range Cholesterol 141 <200 mg/dL HP CONVERSION HDL Cholesterol 58 >40 mg/dL HP CONVERSION Triglycerides 62 0 - 149 HP CONVERSION mg/dL LDL Calculated 71 0 - 130 HP CONVERSION mg/dL Comment: Specimen (Source) Anatomical Collection Method Collection Time Re ceived Time Location / / Volume Laterality 05/26/2008 12:00 PM CDT Rosalie Gaines Jeanne AG CNP LAB_1 Performing Organization Address City/[facility] Phon e Number HP CONVERSION Glucose (05/26/2008 12:00 PM CDT) athologist Signature Length Of Fast 12.0 Hours HP CONVERSION Lab Glucose 90 60 - 100 HP CONVERSION mg/dL Specimen (Source) Anatomical Collection Method Collection Time Re ceived Time Location / / Volume Laterality 05/26/2008 12:00 PM CDT Rosalie A Jeanne AG CNP LAB_1 Performing Organization Address [facility] Phon e Number HP CONVERSION Hemoglobin, Blood (05/26/2008 12:00 PM CDT) athologist Signature Hemoglobin 13.7 11.8 - 15.5 HP CONVERSION gm/dL Specimen (Source) Anatomical Collection Method Collection Time Re ceived Time Location / / Volume Laterality 05/26/2008 12:00 PM CDT Rosalie Gaines Jeanne AG CNP LAB_1 Performing Organization Address [facility] Phon e Number HP CONVERSION Thyroid Stimulating Hormone (05/26/2008 12:00 PM CDT) athologist Signature Thyroid 1.73 0.20 - HP CONVERSION Stimulating 4.50 Hormone uIU/mL Specimen (Source) Anatomical Collection Method Collection Time Re ceived Time Location / / Volume Laterality 05/26/2008 12:00 PM CDT Rosalie Gaines Jeanne AG CNP LAB_1 Performing Organization Address [facility] Phon e Number HP CONVERSION documented in this encounter Visit Diagnoses Not on filedocumented in this encounter Care Teams Contact Lens Edge Buffer Relationship Specialty Start Date End Date Md Homero, PCP - General 11/28/10 03/07/15 [place] [address] documented as of this encounter
--- OUTSIDE RECORDS SUMMARY | 2022-05-17 08:35 | XMS_ITS | Encounter Summary ---
:1985 Author Organization [employer] Address [address] [place] [address] Care Team Providers Name Role Phone Md YOBANI Valentin Primary Care Provider Encounter Details Date Type Department Care Team Description 10/17/2005 PN Conversion Only [place] CONVERSIO N Love, [address] [facility] [place] [address] [address] [place] [address] (Wo rk) Social History Tobacco Use Types Packs/Day Years Used Date Smoking Tobacco: Never Assessed Sex Assigned at Date Recorded Not on file documented as of this encounter Plan of Treatment Upcoming Encounters Date Type Specialty Care Team Description 05/18/2022 Appointment Rheumatology Erasmo Horn MD [address] [place] Cec[address] [facility] N [address] (Wo rk) documented as of this encounter Procedures Procedure Name Priority Date/Time Associated Diagnosis Comme nts COMPLETE BLOOD Routine 10/17/2005 3:34 PM Results for this COUNT-W/DIFF [employer]ACH procedure are i n the results section. AST Routine 10/17/2005 3:34 PM Results f or this [employer] procedure are i n the results section. ALBUMIN Routine 10/17/2005 3:34 PM Results f or this [employer] procedure are i n the results section. ESR Routine 10/17/2005 3:34 PM Results f or this [employer]ACH procedure are i n the results section. documented in this encounter Results Complete Blood Count-W/Diff (10/17/2005 3:34 PM [employer] COACH) [facility] Method Time Signature White Blood Cell 7.4 3.8 - 11.0 HP CONVERSIO N Count K/cmm Red Blood Cell 4.40 4.10 - HP CONVERSION Count 5.10 m/cmm Hemoglobin 12.4 12.0 - HP CONVERSION 16.0 gm/dL Hematocrit 36.5 36.0 - HP CONVERSION 46.0 % Mean Corpuscular 82.9 78.0 - HP CONVERSION Volume 100.0 fl Mean Corpuscular 28.1 24.0 - HP CONVERSION Hemoglobin 34.0 pg Mean Corpuscular 34.0 32.0 - HP CONVERSION Hemoglobin Conc 36.5 gm/dL [place] RDW 13.9 11.0 - HP CONVERSION 15.0 % Platelet Count 380 140 - 450 HP CONVERSION k/cmm Differential Auto-Dif No normal HP CONVERSION Verify range Neutrophils 4.5 K/cmm HP CONVERSION Absolute Count Neutrophil 61.4 % HP CONVERSION Lymphocyte % 30.8 % HP CONVERSION Monocyte 5.2 % HP CONVERSION Eosinophil 2.1 % HP CONVERSION Basophil % 0.5 % HP CONVERSION Specimen (Source) Anatomical Collection Method Collection Time Re ceived Time Location / / Volume Laterality 10/17/2005 3:34 PM [employer] Jaylon Aleman MD LAB_1 Performing Organization Address City/State/ZIP Code Phon e Number HP CONVERSION Albumin (10/17/2005 3:34 PM [employer]) athologist Signature Albumin 4.5 3.0 - 5.0 HP CONVERSION g/dL Specimen (Source) Anatomical Collection Method Collection Time Re ceived Time Location / / Volume Laterality 10/17/2005 3:34 PM [employer] Jaylon Aleman MD LAB_1 Performing Organization Address City/State/ZIP Code Phon e Number HP CONVERSION AST (10/17/2005 3:34 PM [employer]) [facility] Method Time Signature Aspartate 17 0 - 45 HP CONVERSION Aminotransferase U/L Specimen (Source) Anatomical Collection Method Collection Time Re ceived Time Location / / Volume Laterality 10/17/2005 3:34 PM [employer]ACH Jaylon Aleman MD LAB_1 Performing Organization Address City/State/ZIP Code Phon e Number HP CONVERSION ESR (10/17/2005 3:34 PM [employer]ACH) [facility] gist Method Time Signature Sedimentation Rate 13 0 - 20 HP CONVERSI ON mm/Hr Specimen (Source) Anatomical Collection Method Collection Time Re ceived Time Location / / Volume Laterality 10/17/2005 3:34 PM [employer]ACH Jaylon Aleman MD LAB_1 Performing Organization Address City/[facility] Phon e Number HP CONVERSION documented in this encounter Visit Diagnoses Not on filedocumented in this encounter Care Teams Minilab Operator Relationship Specialty Start Date End Date Md Valentin MD PCP - General 11/28/10 03/07/15 [place] [address] documented as of this encounter
--- OUTSIDE RECORDS SUMMARY | 2022-05-17 08:35 | XMS_ITS | Encounter Summary ---
:1985 Author Organization [employer] [facility] Address [address] [place] [address] Care Team Providers Name Role Phone Md YOBANI Valentin Primary Care Provider Encounter Details Date Type Department Care Team Description 08/21/2006 Office Visit [place] arvind Summers, [address] [facility] [place] [address] [address] [facility] [phone] [facility] N [address] (Wo rk) Social History Tobacco Use Types Packs/Day Years Used Date Smoking Tobacco: Never Assessed Sex Assigned at Date Recorded Not on file documented as of this encounter Last Filed Vital Signs Vital Sign Reading Time Taken Comments Blood Pressure 110/70 08/21/2006 11:35 AM AUTOMOBILE SALES CONSULTANT Pulse 84 08/21/2006 11:35 AM AUTOMOBILE SALES CONSULTANT Temperature - - Respiratory Rate - - Oxygen Saturation - - Inhaled Oxygen Concentration - - Weight 64.4 kg (142 lb) 08/21/2006 11:35 AM AUTOMOBILE SALES CONSULTANT C: 64.4 kg Height - - Body Mass Index - - documented in this encounter Progress Notes Derrick Summers MD - 08/21/2006 12:01 AM CST Progress Notes signed by Derrick Summers MD at 08/22/06 1841 Author: Derrick Summers MD Service: (none) Author Type: Physician Filed: 12/16/10 7117 Note Time: 12/26/06 0001 Status: Signed Animal Nutrition Consultant: Derrick Summers MD (Physician) NAME: MANJIT DOHERTY MR#: [id number] ACCT: [id number] VISIT: [id number] DICTATING CLINICIAN: DERRICK SUMMERS MD JOB: [id number] LOC: 521 CLINIC PROGRESS NOTE DATE OF VISIT: 08/21/2006 SUBJECTIVE: : 1985 CHIEF COMPLAINT: Followup for pauciarticular juvenile rheumatoid arthritis. HISTORY OF PRESENT ILLNESS: I have been following this patient for slightly over a year. Her juvenile rheumatoid arthritis has been doing very well. This has been under control with low-dose methotrexate. I started tapering her methotrexate and she has not had any recurrent symptoms or flare. She has not received a flu vaccination. Past medical history, family and social history, current medication, adverse reactions were reviewed and updated in EMR. CURRENT MEDICATION: Reviewed and updated in EMR. ADR/ALLERGIES: REVIEWED AND UPDATED IN EMR. OBJECTIVE: VS: Per flow sheet. GENERAL APPEARANCE: Young female who was not in her acute distress. SKIN: No rash, tophus, nodules, or edema. MUSCULOSKELETAL: No significant synovitis or active arthritis involving any joints of 4 extremities. Normal gait, normal muscle power and tone. LABORATORY EXAM, 08/17/06: Unremarkable CBC, ALT, and albumin. ASSESSMENT: Juvenile rheumatoid arthritis, in remission. PLAN: She is doing very well and I will continue tapering her methotrexate. Will drop it down to 7.5 mg per week for a month, and then drop it down by 2.5 mg every month until zero. I will see her back again in 3 months without any further blood monitoring. If she is doing well, this most likely has gone into remission and I will see her back as needed. Flu vaccination will be provided today. TT: 15 minutes, with 10 minutes spent for counseling, education, discussion about management of her rheumatoid arthritis and blood test results. [id number] C: 08/22/06 11:31 DOCUMENT: [id number] MOBILE SALES CONSULTANT documented in this encounter Plan of Treatment Upcoming Encounters Date Type Specialty Care Team Description 05/18/2022 Appointment Rheumatology Erasmo Horn MD [address] [facility] [place] [facility] [address] [facility] [address] (Wo rk) documented as of this encounter Visit Diagnoses Not on filedocumented in this encounter Care Teams Loom Changer Relationship Specialty Start Date End Date Md Valentin MD PCP - General 11/28/10 03/07/15 [place] [address] documented as of this encounter
--- OUTSIDE RECORDS SUMMARY | 2022-05-17 08:35 | XMS_ITS | Encounter Summary ---
:1985 Author Organization [employer] Address [address] [place] [address] Care Team Providers Name Role Phone Md YOBANI Valentin Primary Care Provider Encounter Details Date Type Department Care Team Description 02/13/2006 PN Conversion Only [place] CONVERSIO N Love, [address] [facility] [place] [address] [address] [place] [address] (Wo rk) Social History Tobacco Use Types Packs/Day Years Used Date Smoking Tobacco: Never Assessed Sex Assigned at Date Recorded Not on file documented as of this encounter Plan of Treatment Upcoming Encounters Date Type Specialty Care Team Description 05/18/2022 Appointment Rheumatology Erasmo Horn MD [address] [place] Cecy [facility] N [address] (Wo rk) documented as of this encounter Procedures Procedure Name Priority Date/Time Associated Diagnosis Comme nts COMPLETE BLOOD Routine 02/13/2006 3:21 PM Results for this COUNT-W/DIFF CDT procedure are i n the results section. ALT (SGPT) Routine 02/13/2006 3:21 PM Results f or this CDT procedure are i n the results section. ALBUMIN Routine 02/13/2006 3:21 PM Results f or this CDT procedure are i n the results section. documented in this encounter Results Complete Blood Count-W/Diff (02/13/2006 3:21 PM CDT) [facility] Method Time Signature White Blood Cell 6.5 3.8 - 11.0 HP CONVERSIO N Count K/cmm Red Blood Cell 4.34 3.70 - HP CONVERSION Count 5.20 m/cmm Hemoglobin 11.8 11.8 - HP CONVERSION 15.5 gm/dL Hematocrit 35.8 35.0 - HP CONVERSION 46.0 % Mean Corpuscular 82.6 80.0 - HP CONVERSION Volume 100.0 fl Mean Corpuscular 27.3 27.0 - HP CONVERSION Hemoglobin 34.0 pg Mean Corpuscular 33.0 32.0 - HP CONVERSION Hemoglobin Conc 36.5 gm/dL [place] RDW 13.4 11.0 - HP CONVERSION 15.0 % Platelet Count 279 140 - 450 HP CONVERSION k/cmm Differential Auto-Dif No normal HP CONVERSION Verify range Neutrophils 4.2 2.0 - 7.5 HP CONVERSION Absolute Count K/cmm Neutrophil 63.4 50.0 - HP CONVERSION 75.0 % Lymphocyte % 28.0 20.0 - HP CONVERSION 40.0 % Monocyte 6.3 5.0 - 14.0 HP CONVERSION % Eosinophil 1.6 0.0 - 6.0 HP CONVERSION % Basophil % 0.7 0.0 - 2.0 HP CONVERSION % Specimen (Source) Anatomical Collection Method Collection Time Re ceived Time Location / / Volume Laterality 02/13/2006 3:21 PM CDT Jaylon Aleman MD LAB_1 Performing Organization Address City/State/ZIP Code Phon e Number HP CONVERSION ALT (SGPT) (02/13/2006 3:21 PM CDT) [facility] Method Time Signature Alanine 29 0 - 65 HP CONVERSION Aminotransferase U/L Specimen (Source) Anatomical Collection Method Collection Time Re ceived Time Location / / Volume Laterality 02/13/2006 3:21 PM CDT Jaylon Aleman MD LAB_1 Performing Organization Address City/State/ZIP Code Phon e Number HP CONVERSION Albumin (02/13/2006 3:21 PM CDT) athologist Signature Albumin 4.2 3.0 - 5.0 HP CONVERSION g/dL Specimen (Source) Anatomical Collection Method Collection Time Re ceived Time Location / / Volume Laterality 02/13/2006 3:21 PM CDT Jaylon Aleman MD LAB_1 Performing Organization Address City/State/ZIP Code Phon e Number HP CONVERSION documented in this encounter Visit Diagnoses Not on filedocumented in this encounter Care Teams Supervisor Beater Room Relationship Specialty Start Date End Date Md Homero, PCP - General 11/28/10 03/07/15 [place] [address] documented as of this encounter
--- OUTSIDE RECORDS SUMMARY | 2022-05-17 08:35 | XMS_ITS | Encounter Summary ---
:1985 Author [facility] Address [address] [place] [address] Care Team Providers Name Role Phone Md YOBANI Valentin Primary Care Provider Encounter Details Date Type Department Care Team Description 01/23/2007 Office Visit [facility] Tisha Lopez PA-C [address] [facility] [address] [place] [address] [place] [address] [phone] (Wo rk) Social History Tobacco Use Types Packs/Day Years Used Date Smoking Tobacco: Never Assessed Sex Assigned at Date Recorded Not on file documented as of this encounter Last Filed Vital Signs Vital Sign Reading Time Taken Comments Blood Pressure 125/74 01/23/2007 12:13 PM CDT Pulse 89 01/23/2007 12:13 PM CDT Temperature 37.1 ??C (98.8 ??F) 01/23/2007 12:13 PM ORAL C: 37.1 C CDT Respiratory Rate 16 01/23/2007 12:13 PM CDT Oxygen Saturation - - Inhaled Oxygen Concentration - - Weight - - Height - - Body Mass Index - - documented in this encounter Progress Notes Tisha Lopez PA-C - 01/23/2007 12:01 AM CDT Progress Notes signed by Tisha Lopez PA-C at 01/23/07 5031 Author: Tisha Lopez PA-C Service: (none) Author Type: Physician Manager Poker Filed: 12/16/101952 Note Time: 01/23/07 0001 Status: Signed Spray Stainer: Tisha Lopez PA-C (Physician Manager Poker) NAME: MANJIT DOHERTY MR#: [id number] ACCT: [id number] VISIT: [id number] DICTATING CLINICIAN: TISHA LOPEZ PA-C JOB: [id number] LOC: 520 CLINIC PROGRESS NOTE DATE OF VISIT: 01/23/2007 SUBJECTIVE: This 21-year-old female presents to urgent care for evaluation of sore throat, fever, headache x4 days, history of tonsillitis 3 months ago. States this is not quite so bad. No fevers. No headache or facial pain. She has been treated with NyQuil and Tylenol. Left side is more sore than the right. She has had some left ear pain as well as cough and some nasal congestion. No one else sick around her. Just coming back from college. ADR/ALLERGIES: NKDA. MEDICATIONS: Tylenol and NyQuil. PAST HISTORY: Arthritis in her knee. OBJECTIVE: VS: BP: 125/74. T: 98.8. P: 89. R: 16. GENERAL: NAD. HEENT: Head is normocephalic. Eyes: Sclerae white. Conjunctivae pink. Cornea and lens clear. Ears: TMs intact without any cerumen. Nose is patent. Mouth: Shows mild irritation and increased size on the left tonsil compared to the right. No sign of abscess. No exudate or ulcer. NECK: Supple. LUNGS: CTA. ASSESSMENT: Pharyngitis. PLAN: Rapid strep is negative. Treated with viscous lidocaine and naproxen. Symptomatic care. Plenty of fluids. RTC p.r.n. Monitor closely for worsening symptoms. [id number] C: 01/23/07 21:11 DOCUMENT: [id number] documented in this encounter Plan of Treatment Upcoming Encounters Date Type Specialty Care Team Description 05/18/2022 Appointment Rheumatology Erasmo Horn MD [address] [facility] [place] [address] (Wo rk) documented as of this encounter Visit Diagnoses Not on filedocumented in this encounter Care Teams Safety And Health Consultant Relationship Specialty Start Date End Date Md Valentin MD PCP - General 11/28/10 03/07/15 [place] [address] documented as of this encounter
--- OUTSIDE RECORDS SUMMARY | 2022-05-17 08:35 | XMS_ITS | Encounter Summary ---
:1985 Author Organization [employer] Address [address] [place] [address] Care Team Providers Name Role Phone Md YOBANI Valentin Primary Care Provider Encounter Details Date Type Department Care Team Description 10/26/2005 PN Conversion Only [place] [address] [place] [address] [place], [place] [id number] (Wo rk) Social History Tobacco Use Types Packs/Day Years Used Date Smoking Tobacco: Never Assessed Sex Assigned at Date Recorded Not on file documented as of this encounter Plan of Treatment Upcoming Encounters Date Type Specialty Care Team Description 05/18/2022 Appointment Rheumatology Erasmo Horn MD [address] [facility] N [address] (Wo rk) documented as of this encounter Procedures Procedure Name Priority Date/Time Associated Diagnosis Comme nts STREP GROUP A Routine 10/26/2005 11:48 AM Results for this ANTIGEN TEST NEIGHBORHOOD CONSERVATION OFFICER procedure are i n the results section. BETA STREP FOLLOWUP Routine 10/26/2005 11:48 AM R esults for this NEIGHBORHOOD CONSERVATION OFFICER procedure are i n the results section. documented in this encounter Results Strep Group A Antigen Test (10/26/2005 11:48 AM NEIGHBORHOOD CONSERVATION OFFICER) [facility] Time Signature Strep Group A Negative Negative HP CONVERSION Antigen Test Comment: Culture to follow. Specimen (Source) Anatomical Collection Method Collection Time Re ceived Time Location / / Volume Laterality 10/26/2005 11:48 AM NEIGHBORHOOD CONSERVATION OFFICER Cynthia Morse MD LAB_1 Performing Organization Address City/[facility] Code Phon e Number HP CONVERSION Beta Strep Followup (10/26/2005 11:48 AM NEIGHBORHOOD CONSERVATION OFFICER) P athologist Signature Strep Screen SEE TEXT HP CONVERSION Comment: Patient: MANJIT DOHERTY Rapid Strep Follow up Culture @ ? Collected: ??[id number] Source: Throat ?Processed: ??[id number] ??1150 ? 1V Final Report ------ ?1134 No beta hemolytic Strep group A isolated . @ = Rapid F/U Cult Performed at ??[address] [place], [place] ?[address] Specimen (Source) Anatomical Collection Method Collection Time Re ceived Time Location / / Volume Laterality 10/26/2005 11:48 AM NEIGHBORHOOD CONSERVATION OFFICER Cynthia Morse MD LAB_1 Performing Organization Address City/[facility] Phon e Number HP CONVERSION documented in this encounter Visit Diagnoses Not on filedocumented in this encounter Care Teams Service And Repair Supervisor Relationship Specialty Start Date End Date Md Homero, PCP - General 11/28/10 03/07/15 [place] [address] documented as of this encounter
--- OUTSIDE RECORDS SUMMARY | 2022-05-17 08:35 | XMS_ITS | Encounter Summary ---
:1985 Author Organization [facility] Address [address] [place] [address] Care Team Providers Name Role Phone Md YOBANI Valentin Primary Care Provider Encounter Details Date Type Department Care Team Description 11/04/2008 Office Visit [facility] [place] [address] [address] [place] [address] [phone] Social History Tobacco Use Types Packs/Day Years Used Date Smoking Tobacco: Never Assessed Sex Assigned at Date Recorded Not on file documented as of this encounter Last Filed Vital Signs Vital Sign Reading Time Taken Comments Blood Pressure 122/68 11/04/2008 10:14 AM CDT Pulse 94 11/04/2008 10:14 AM CDT Temperature 36.7 ??C (98.1 ??F) 11/04/2008 10:14 C: 36.7 C S imultaneous AM CDT filing. User may not have seen previo us data. Respiratory Rate 14 11/04/2008 10:14 AM CDT Oxygen Saturation - - Inhaled Oxygen - - Concentration Weight - - Height - - Body Mass Index - - documented in this encounter Progress Notes Rock Tierney MD - 11/04/2008 12:01 AM CDT Phone Note signed by Rock Tierney MD at 12/07/08 1034 Author: Rock Tierney MD Service: (none) Author Type: Physician Filed: 11/04/08 0000 Note Time: 11/04/08 0001 Status: Signed Vehicle Painter: Rock Tierney MD (Physician) NAME: MANJIT DOHERTY MR#: [id number] ACCT: [id number] VISIT: [id number] DICTATING CLINICIAN: ROCK TIERNEY MD CONFIRM #: [id number] LOC: 520 CLINIC PHONE CALL DATE OF PHONE CALL: 11/06/2008. I left the patient a message that I had gotten a call with the preliminary report and her ultrasound was negative. I mentioned this and also let her know that again if she has any problems as outlined, she should be seen immediately, but I still want her to follow up with her primary care physician for further workup and management when she gets back, and she was made aware of this at her previous visit as well. [id number] C: 11/06/08 16:46 CONFIRM #: [id number] Rock Tierney MD - 11/04/2008 12:01 AM CDT Progress Notes signed by Rock Tierney MD at 12/07/08 1033 Author: Rock Tierney MD Service: (none) Author Type: Physician Filed: 12/17/10 1142 Note Time: 11/04/08 0001 Status: Signed Vehicle Painter: Rock Tierney MD (Physician) NAME: MANJIT DOHERTY MR#: [id number] ACCT: [id number] VISIT: [id number] DICTATING CLINICIAN: ROCK TIERNEY MD CONFIRM #: [id number] LOC: 520 CLINIC PROGRESS NOTE DATE OF VISIT: 11/04/2008 SUBJECTIVE: Patient is here today with a couple of different symptoms including #1, some right ear discomfort for about 2 weeks, which feels more like a fullness and occasionally pain. She may have had some sinus congestion before that, but not now and she denies smoking or allergies. SOCIAL HISTORY: She is about to leave on a flight to [place] in 4 days, so she would like to get this checked out. The other issue is that she has had some stomach upset going on for the last 1-2 months that will come on about half an hour after she eats and it will last 1-2 hours. It does not appear to be tied to fried foods or fatty foods or anything else specific, and she says it is more generalized and she cannot really pinpoint where it. She does not have the pain currently. FAMILY HISTORY: Includes some people with ulcers and also her father apparently has gallbladder out at age 24, and also his grandfather had his gallbladder out at unknown age. She has not had black stools, bloody stools, urinary symptoms, weight loss, fever or other symptoms. The rest of the systems review is negative. She does deny the possibility of or nursing, but does take control pills. ADR/ALLERGIES: NO ALLERGIES TO MEDICATION. Again, she is currently pain-free and she has not tried anything for this yet, and she denies black stools or bloody stools. OBJECTIVE: VS: T: 98. P: 94. R: 14. She appears alert and oriented x3. Exam shows right serous otitis media and sinus congestion is present. Throat looks okay. SKIN: Shows no rashes. LUNGS: Clear. ABDOMEN: At this time is completely nontender and no organomegaly is present. ASSESSMENT: 1. Sinus congestion with #2. 2. Symptomatic serous otitis media. 3. Recurrent abdominal pain, possibilities including gastritis or less likely, but still possible, gallbladder disease, especially given her family history. PLAN: We are going to treat her ears somewhat aggressively in that she states she is going on the flight no matter what even we discussed the risks of that. She will use a Z-Stephen and Nasonex spray is given, and we are also going to start Prilosec, and we talked about dietary management. We are going to order a gallbladder ultrasound for her before she leaves and this will be done in the next 2 days and this is to rule out gallstones, and then we also set up a followup visit for her for when she gets back after her trip, and she is also warned about possible symptoms of biliary obstruction and if she has those, she should be seen by a physician immediately. Otherwise, follow up no matter what through primary care when she gets back to go over the results of this and see how she is doing with the Prilosec. We did discuss possible H. pylori testing as well, but we will defer that to her primary care physician, who can follow up on all of the above. [id number] C: 11/04/08 12:55 CONFIRM #: [id number] documented in this encounter Plan of Treatment Upcoming Encounters Date Type Specialty Care Team Description 05/18/2022 Appointment Rheumatology Erasmo Horn MD [address] [facility] [id number] (Wo rk) documented as of this encounter Visit Diagnoses Not on filedocumented in this encounter Care Teams Retail Cashier Associate Relationship Specialty Start Date End Date Md Valentin MD PCP - General 11/28/10 03/07/15 [place], [place] [id number] documented as of this encounter
--- OUTSIDE RECORDS SUMMARY | 2022-05-17 08:35 | XMS_ITS | Encounter Summary ---
:1985 Author Organization [facility] Address [address] [place] [address] Care Team Providers Name Role Phone Md YOBANI Vaelntin Primary Care Provider Encounter Details Date Type Department Care Team Description 12/14/2005 PN Conversion Only SUSAN CONVERSIO N [place], [address] [facility] [place] [address] [address] [place] [address] (Wo rk) Social History Tobacco Use Types Packs/Day Years Used Date Smoking Tobacco: Never Assessed Sex Assigned at Date Recorded Not on file documented as of this encounter Plan of Treatment Upcoming Encounters Date Type Specialty Care Team Description 05/18/2022 Appointment Rheumatology Erasmo Honr MD [address] [facility] N [address] (Wo rk) documented as of this encounter Procedures Procedure Name Priority Date/Time Associated Diagnosis Comme nts COMPLETE BLOOD Routine 12/14/2005 3:57 PM Results for this COUNT-W/DIFF CDT procedure are i n the results section. AST Routine 12/14/2005 3:57 PM Results f or this CDT procedure are i n the results section. ALBUMIN Routine 12/14/2005 3:57 PM Results f or this CDT procedure are i n the results section. ESR Routine 12/14/2005 3:57 PM Results f or this CDT procedure are i n the results section. documented in this encounter Results Complete Blood Count-W/Diff (12/14/2005 3:57 PM CDT) [facility] Method Time Signature White Blood Cell 5.9 3.8 - 11.0 HP CONVERSIO N Count K/cmm Red Blood Cell 4.77 4.10 - HP CONVERSION Count 5.10 m/cmm Hemoglobin 13.0 12.0 - HP CONVERSION 16.0 gm/dL Hematocrit 38.5 36.0 - HP CONVERSION 46.0 % Mean Corpuscular 80.8 78.0 - HP CONVERSION Volume 100.0 fl Mean Corpuscular 27.2 24.0 - HP CONVERSION Hemoglobin 34.0 pg Mean Corpuscular 33.7 32.0 - HP CONVERSION Hemoglobin Conc 36.5 gm/dL [place] RDW 14.7 11.0 - HP CONVERSION 15.0 % Platelet Count 278 140 - 450 HP CONVERSION k/cmm Differential Auto-Dif No normal HP CONVERSION Verify range Neutrophils 3.5 K/cmm HP CONVERSION Absolute Count Neutrophil 59.9 % HP CONVERSION Lymphocyte % 28.2 % HP CONVERSION Monocyte 8.0 % HP CONVERSION Eosinophil 3.5 % HP CONVERSION Basophil % 0.4 % HP CONVERSION Specimen (Source) Anatomical Collection Method Collection Time Re ceived Time Location / / Volume Laterality 12/14/2005 3:57 PM CDT Jaylon Aleman MD LAB_1 Performing Organization Address City/State/ZIP Code Phon e Number HP CONVERSION Albumin (12/14/2005 3:57 PM CDT) P athologist Signature Albumin 4.0 3.0 - 5.0 HP CONVERSION g/dL Specimen (Source) Anatomical Collection Method Collection Time Re ceived Time Location / / Volume Laterality 12/14/2005 3:57 PM CDT Jaylon Aleman MD LAB_1 Performing Organization Address City/State/ZIP Code Phon e Number HP CONVERSION AST (12/14/2005 3:57 PM CDT) [facility] Method Time Signature Aspartate 19 0 - 45 HP CONVERSION Aminotransferase U/L Specimen (Source) Anatomical Collection Method Collection Time Re ceived Time Location / / Volume Laterality 12/14/2005 3:57 PM CDT Jaylon Aleman MD LAB_1 Performing Organization Address City/[facility] Phon e Number HP CONVERSION ESR (12/14/2005 3:57 PM CDT) [facility] gist Method Time Signature Sedimentation Rate 8 0 - 20 HP CONVERSI ON mm/Hr Specimen (Source) Anatomical Collection Method Collection Time Re ceived Time Location / / Volume Laterality 12/14/2005 3:57 PM CDT Jaylon Aleman MD LAB_1 Performing Organization Address [facility] Phon e Number HP CONVERSION documented in this encounter Visit Diagnoses Not on filedocumented in this encounter Care Teams Gaming Surveillance Observer Relationship Specialty Start Date End Date Md Homero, PCP - General 11/28/10 03/07/15 [place] [address] documented as of this encounter
--- OUTSIDE RECORDS SUMMARY | 2022-05-17 08:35 | XMS_ITS | Encounter Summary ---
:1985 [facility] Address [address] [place] [address] Care Team Providers Name Role Phone Md YOBANI Valentin Primary Care Provider Encounter Details Date Type Department Care Team Description 04/27/2006 Nursing Visit [facility] Tavia Naik, PA-C Medicine [address] [place] [address] [place] [address] [place] [address] [phone] Social History Tobacco Use Types Packs/Day Years Used Date Smoking Tobacco: Never Assessed Sex Assigned at Date Recorded Not on file documented as of this encounter Plan of Treatment Upcoming Encounters Date Type Specialty Care Team Description 05/18/2022 Appointment Rheumatology Erasmo Horn MD [address] [facility] N [id number] (Wo rk) documented as of this encounter Visit Diagnoses Not on filedocumented in this encounter Care Teams Self Pay Specialist Relationship Specialty Start Date End Date Md Valentin MD PCP - General 11/28/10 03/07/15 [place], [place] [phone] documented as of this encounter
--- OUTSIDE RECORDS SUMMARY | 2022-05-17 08:35 | XMS_ITS | Encounter Summary ---
:1985 Author [email or web address] Address [address] [place] [address] Care Team Providers Name Role Phone Md YOBANI Valentin Primary Care Provider Encounter Details Date Type Department Care Team Description 12/19/2005 Office Visit [facility] arvind Summers, [address] [facility] [place] [address] [address] [facility] [phone] [facility] N [address] (Wo rk) Social History Tobacco Use Types Packs/Day Years Used Date Smoking Tobacco: Never Assessed Sex Assigned at Date Recorded Not on file documented as of this encounter Last Filed Vital Signs Vital Sign Reading Time Taken Comments Blood Pressure 120/66 12/19/2005 3:37 PM CDT Pulse 88 12/19/2005 3:37 PM CDT Temperature - - Respiratory Rate - - Oxygen Saturation - - Inhaled Oxygen Concentration - - Weight 62.1 kg (136 lb 15.9 oz) 12/19/2005 3:37 PM CDT C: 62.1kg Height - - Body Mass Index - - documented in this encounter Progress Notes Derrick Summers MD - 12/19/2005 12:01 AM CDT Progress Notes signed by Derrick Summers MD at 12/20/05 1320 Author: Derrick Summers MD Service: (none) Author Type: Physician Filed: 12/16/10 1155 Note Time: 12/19/05 0001 Status: Signed Epic Application Coordinator: Derrick Summers MD (Physician) NAME: MANJIT ODHERTY MR: [id number] ACCT: [id number] VISIT: [id number] DICTATING CLINICIAN: DERRICK SUMMERS MD JOB: [id number] CLINIC PROGRESS NOTE DATE OF VISIT: 12/19/2005 SUBJECTIVE: : 1985. Chief Complaint: Followup for polyarticular juvenile rheumatoid arthritis. HISTORY OF PRESENT ILLNESS: I have been following this patient for the past few months. Her disease has been quite under control with methotrexate 12.5 mg per week, folic acid 1 mg per day, and intraarticular cortisone injection. She has not had a significant flare at all for the past 4 months. She has been doing very well active and functional at school. She recently developed right side hip pain and mild right suprapatellar pain without any significant swelling. This is quite under control and taken care of by Ed. No other symptoms or any complaints. Past medical history, family and social history were reviewed and updated. CURRENT MEDICINES: Reviewed and updated. ADR/ALLERGIES: REVIEWED AND UPDATED. OBJECTIVE: VS: BP: 120/66. P: 88. Wt: 137 lb. Young female who was not in her acute distress. SKIN: No rash, tophi, nodule, edema or swelling. MUSCULOSKELETAL: No significant synovitis or active arthritis involving any joints of four extremities. Mild tenderness over the right greater trochanteric bursal area. Both knee joints showed no inflammation or instability. Laboratory exam on 12/14/05 showed normal sed rate, CBC, AST and albumin. ASSESSMENT: ASSESSMENT AND PLAN: 1. Right greater trochanteric bursitis, mild. 2. Right knee arthralgia. 3. Polyarticular juvenile rheumatoid arthritis, inactive. I reassured her that her symptoms are not related to a flare of juvenile rheumatoid arthritis. The symptom over the right hip is related to bursitis and tendinitis or trochanteric bursitis. Right knee pain is not at the joint line and not accompanied by any signs of right knee inflammation and this most likely suggests tendinitis. I asked her to take Aleve 2 tablets twice a day for the next 1 to 2 weeks. We will start tapering her methotrexate down to 10 mg per week and folic acid will continue at 1 mg per day. Aleve can be reduced to as needed once her right knee and right hip symptoms subside. I will see her back in 2 to 3 months with repeated blood tests for CBC, ALT and albumin. Total time 15 minutes with 10 minutes spent for counseling, education and discussion about medical management of her conditions. PLAN: See Assessment. [id number] C: 12/20/05 12:10 DOCUMENT: [id number] documented in this encounter Plan of Treatment Upcoming Encounters Date Type Specialty Care Team Description 05/18/2022 Appointment [facility]umatology [facility]asmo Horn MD [address] [facility] [id number] (Wo rk) documented as of this encounter Visit Diagnoses Not on filedocumented in this encounter Care Teams Radiator Cleaner Relationship Specialty Start Date End Date Md Valentin MD PCP - General 11/28/10 03/07/15 [place], [place] [phone] documented as of this encounter
--- OUTSIDE RECORDS SUMMARY | 2022-05-17 08:35 | XMS_ITS | Encounter Summary ---
:1985 Author Organization [facility] Address [address] [place] [address] Care Team Providers Name Role Phone Md YOBANI Valentin Primary Care Provider Encounter Details Date Type Department Care Team Description 10/26/2005 Office Visit [facility] [place] [id number] [place] [address] [phone] (Wo rk) Social History Tobacco Use Types Packs/Day Years Used Date Smoking Tobacco: Never Assessed Sex Assigned at Date Recorded Not on file documented as of this encounter Last Filed Vital Signs Vital Sign Reading Time Taken Comments Blood Pressure 110/58 10/26/2005 8:13 AM ERECTING ENGINEER Pulse 100 10/26/2005 8:13 AM ERECTING ENGINEER Temperature 36.7 ??C (98.1 ??F) 10/26/2005 8:13 AM ORAL C: 3 6.7 C ERECTING ENGINEER Respiratory Rate 16 10/26/2005 8:13 AM ERECTING ENGINEER Oxygen Saturation - - Inhaled Oxygen Concentration - - Weight - - Height - - Body Mass Index - - documented in this encounter Progress Notes Hugo Gold MD - 10/26/2005 12:01 AM CST Progress Notes signed by Hugo Gold MD at 11/23/05 1273 Author: Hugo Gold MD Service: (none) Author Type: Physician Filed: 12/16/10 1050 Note Time: 10/26/05 0001 Status: Signed Manager Endoscopy: Hugo Gold MD (Physician) NAME: MANJIT DOHERTY MR: [id number] ACCT: [id number] VISIT: [id number] DICTATING CLINICIAN: HUGO GOLD MD JOB: [id number] CLINIC PROGRESS NOTE DATE OF VISIT: 10/26/2005 SUBJECTIVE: : 1985. Chief Complaint: Sore throat. HPI: This 19-year-old comes in today complaining of sore throat for the last 2 days. Has not had a fever, has had a headache. The patient has been cold and hot, and she has also had a swollen throat. She has had a cough, which has been productive. She is moving out of town, and she just wants to make sure that she does not have something that could be better with medicine. PAST MEDICAL HISTORY: Rheumatoid arthritis. PAST SURGICAL HISTORY: None. MEDICATIONS: Naprosyn and methotrexate. SOCIAL HISTORY: The patient is a nonsmoker. ADR/ALLERGIES: NO KNOWN DRUG ALLERGIES. FAMILY HISTORY: No one else has been sick at home. REVIEW OF SYSTEMS: Negative, except for previous. OBJECTIVE: VS: BP: 110/58. T: 98.1. P: 100. R: 16. GENERAL: Alert and oriented, no apparent distress. HEENT: Tympanic membranes, no evidence of infection. Sinuses are tender in the maxillary region and there is swollen, erythematous turbinates. Oropharynx is pink and moist. Positive post nasal drip. NECK: Reveals no lymphadenopathy. LUNGS: Clear. HEART: Regular. ABDOMEN: Soft, nontender. Strep screen negative. ASSESSMENT: Sinusitis and maxillary ?. PLAN: Omnicef 600 mg 1 p.o. daily x10 days and follow up if the symptoms persists or worsen. [id number] C: 10/27/05 22:29 DOCUMENT: [id number] TING ENGINEER documented in this encounter Plan of Treatment Upcoming Encounters Date Type Specialty Care Team Description 05/18/2022 Appointment Rheumatology Erasmo Horn MD [address] [place] [facility] [place] N [address] (Wo rk) documented as of this encounter Visit Diagnoses Not on filedocumented in this encounter Care Teams Department Clinician Relationship Specialty Start Date End Date Md Valentin MD PCP - General 11/28/10 03/07/15 [place] [address] documented as of this encounter
--- OUTSIDE RECORDS SUMMARY | 2022-05-17 08:35 | XMS_ITS | Encounter Summary ---
:1985 Author Organization [employer] Address [address] [place] [address] Care Team Providers Name Role Phone Md YOBANI Valentin Primary Care Provider Encounter Details Date Type Department Care Team Description 04/28/2008 Office Visit [facility] arvind Aleman, [address] [facility] [place] [address] [facility] [phone] [facility] N [address] (Wo rk) Social History Tobacco Use Types Packs/Day Years Used Date Smoking Tobacco: Never Assessed Sex Assigned at Date Recorded Not on file documented as of this encounter Last Filed Vital Signs Vital Sign Reading Time Taken Comments Blood Pressure 108/58 04/28/2008 4:13 PM CDT Pulse 68 04/28/2008 4:13 PM CDT Temperature - - Respiratory Rate - - Oxygen Saturation - - Inhaled Oxygen Concentration - - Weight 60.8 kg (133 lb 15.9 oz) 04/28/2008 4:13 PM C: 6 0.8kg CDT Height 156.2 cm (5' 1.5) 04/28/2008 4:13 PM C: 156.2cm CDT Body Mass Index 24.91 04/28/2008 4:13 PM CDT documented in this encounter Progress Notes Jaylon Aleman MD - 04/28/2008 12:01 AM CDT Progress Notes signed by Jaylon Aleman MD at 04/28/08 1655 Author: Jaylon Aleman MD Service: (none) Author Type: Physician Filed: 12/17/10 0657 Note Time: 04/28/08 0001 Status: Signed Financial Sales Manager: Jaylon Aleman MD (Physician) SUBJECTIVE: Worsening knee joint pain and swelling. History of present illness: A pleasant 22-year-old female whom I last saw almost a year ago for juvenile rheumatoid arthritis. The disease was under control and I asked her to taper her methotrexate down to zero. She was doing well with no methotrexate continue about two months ago when she started seeing knees swelling. It is more on the left than the right side. Upper extremity joints are spared. There are no symptoms that would suggest iritis, Achilles tendinitis or inflammatory back pain. Prip-mpq-twrpmvy NSAIDs is not adequate. No recent diarrhea urine infection. Past medical history, family and social history, current medications and adverse reactions were updated in EMR. Physical exams: Vital signs per flow sheet. KEARA-II score is 0.6. Pain is rated as 6 out of 10. General appearance: Young female who was not in acute distress. Skin: Sunburn over her face and scalp. Musculoskeletal exams: Minimal effusion on the left more than the right knee. Full flexion of both knees caused tenderness across the joint line. There is no synovitis involving any other joints of 4 extremities. Normal gait, normal muscle power and tone. Assessment and plan: 1. Flare of chronic juvenile rheumatoid arthritis. Unfortunately, her disease flares and she might require low dose of methotrexate for a long time. I will put her back on methotrexate 12.5 mg weekly and folic acid 1 mg per day. Side effects and benefits were discussed. The importance of having an effective contraception was reemphasized. To quickly resolve inflammation symptoms, cortisone injection will be helpful. Consent was verbally obtained. Risks and benefits were discussed. Both medial knee joint was prepped in a sterile fashion. Ethyl chloride spray was used as a local anesthetic agent. A total of two ml of 1% lidocaine mixed with 60-mg of triamcinolone was injected into each knee joint without acute complication. I will see the patient back in two months. The patient will have the blood test monitoring before the next appointment. Total time is 25 minutes, 15 minutes counseling 8 minutes procedures. *SH~DNS~SOAP documented in this encounter Plan of Treatment Upcoming Encounters Date Type Specialty Care Team Description 05/18/2022 Appointment Rheumatology Erasmo Horn MD [address] [facility] [address] (Wo rk) documented as of this encounter Visit Diagnoses Not on filedocumented in this encounter Care Teams House Wirer Relationship Specialty Start Date End Date Md Homero, PCP - General 11/28/10 03/07/15 [place], [place] [phone] documented as of this encounter
--- OUTSIDE RECORDS SUMMARY | 2022-05-17 08:35 | XMS_ITS | Encounter Summary ---
:1985 Author Organization [facility] [employer] Address [address] [place] [address] Care Team Providers Name Role Phone Md YOBANI Valentin Primary Care Provider Encounter Details Date Type Department Care Team Description 10/24/2005 Office Visit [facility] arvind Summers, [address] [facility] [place] [address] [facility] [phone] [facility] N [address] (Wo rk) Social History Tobacco Use Types Packs/Day Years Used Date Smoking Tobacco: Never Assessed Sex Assigned at Date Recorded Not on file documented as of this encounter Last Filed Vital Signs Vital Sign Reading Time Taken Comments Blood Pressure 112/50 10/24/2005 3:31 PM POSTPARTUM NURSE Pulse 88 10/24/2005 3:31 PM POSTPARTUM NURSE Temperature - - Respiratory Rate - - Oxygen Saturation - - Inhaled Oxygen Concentration - - Weight 62.1 kg (136 lb 15.9 oz) 10/24/2005 3:31 PM POSTPARTUM NURSE C: 62.1kg Height - - Body Mass Index - - documented in this encounter Progress Notes Derrick Summers MD - 10/24/2005 12:01 AM CST Progress Notes signed by Derrick Summers MD at 10/25/05 1306 Author: Derrick Summers MD Service: (none) Author Type: Physician Filed: 12/16/10 1046 Note Time: 10/24/05 0001 Status: Signed Promotional Advertising Assistant: Derrick Summers MD (Physician) NAME: MANJIT DOHERTY MR: [id number] ACCT: [id number] VISIT: [id number] DICTATING CLINICIAN: DERRICK SUMMERS MD JOB: [id number] CLINIC PROGRESS NOTE DATE OF VISIT: 10/24/2005 SUBJECTIVE: : 1985. Chief Complaint: Followup for polyarticular juvenile rheumatoid arthritis. HISTORY OF PRESENT ILLNESS: I have been following this patient for the past few months. 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 I started her on methotrexate in late 07/2005 and also injected cortisone. She has been doing very well and has not had any recurrent knee problems. However, she still requires Naproxen 1 tablet in the morning in order to help to reduce knee aching and pain. Otherwise she has been tolerating medicine well without any major adverse reactions. She is fully functional and active at home and at school. Past medical history, family and social history, current medicines, and adverse reactions were reviewed and updated in EMR. OBJECTIVE: VS: BP: 112/50. P: 88. Wt: 137 lb. GENERAL APPEARANCE: Young teenage girl who was not in her acute distress. SKIN: No rash, tophi, nodule, or edema. HEART: RRR. CHEST: CTA bilaterally. MUSCULOSKELETAL: No significant synovitis or active arthritis involving any joints of 4 extremities. She has normal gait and normal muscle power and tone. Laboratory exam on 10/17/05 showed normal CBC, sed rate, AST, and albumin. ASSESSMENT: Polyarticular juvenile rheumatoid arthritis, clinically inactive. PLAN: She has been doing quite well so I will maintain her on the current dose of methotrexate 12.5 mg per week and folic acid 1 mg per day. I think it is acceptable for her to take Aleve once a day in the morning. I want to make sure that her disease is active for the next 3 to 6 months before I start thinking about tapering her medicine or having methotrexate replaced with Plaquenil which is less toxic for her. I will see her back in 2 to 3 months with repeated blood tests of CBC, sed rate, AST, and albumin. Total time 15 minutes with 10 minutes spent for counseling, education, discussion about medical management, and lab results. [id number] C: 10/25/05 12:52 DOCUMENT: [id number] PARTUM NURSE documented in this encounter Plan of Treatment Upcoming Encounters Date Type Specialty Care Team Description 05/18/2022 Appointment Rheumatology Erasmo Horn MD [address] [facility] [id number] (Wo rk) documented as of this encounter Visit Diagnoses Not on filedocumented in this encounter Care Teams Delivery Table Operator Relationship Specialty Start Date End Date Md Homero, MD PCP - General 11/28/10 03/07/15 [place] [address] documented as of this encounter
--- OUTSIDE RECORDS SUMMARY | 2022-05-17 08:35 | XMS_ITS | Encounter Summary ---
:1985 Author Organization [employer] Address [address] [place] [address] Care Team Providers Name Role Phone Md YOBANI Valentin Primary Care Provider Encounter Details Date Type Department Care Team Description 10/12/[address] [facility] [place] [address] [phone] Social History Tobacco Use Types Packs/Day Years Used Date Smoking Tobacco: Never Assessed Sex Assigned at Date Recorded Not on file documented as of this encounter Last Filed Vital Signs Vital Sign Reading Time Taken Comments Blood Pressure 112/70 10/12/2006 10:16 AM EMPLOYMENT CONSULTANT Pulse 92 10/12/2006 10:16 AM EMPLOYMENT CONSULTANT Temperature - - Respiratory Rate - - Oxygen Saturation - - Inhaled Oxygen Concentration - - Weight 65.3 kg (143 lb 15.7 oz) 10/12/2006 10:16 AM C: 65.3kg EMPLOYMENT CONSULTANT Height - - Body Mass Index - - documented in this encounter Progress Notes Lili Piedra - 10/12/2006 12:01 AM CST Progress Notes signed by at 10/15/06 1426 Author: Lili Rendon MD Service: (none) Author Type: (none) Filed: 12/16/10 3848 Note Time: 10/12/06 0001 Status: Signed Wet Inspector Optical Glass: Ciro Conversion NAME: MANJIT DOHERTY MR#: [id number] ACCT: [id number] VISIT: [id number] DICTATING CLINICIAN: Lili Rendon MD JOB: [id number] LOC: 502 CLINIC PROGRESS NOTE DATE OF VISIT: 10/12/2006 SUBJECTIVE: : 1985. Manjit presents to the clinic today for followup after a recent visit to urgent care/ER for some left chest pain. She states symptoms have been going on for the past month intermittently. Usually she notices it at least once a day. The pain is well localized to the left lower lateral chest. It is worse with a deep breath. She has some occasional mild shortness of breath. Denies cough. Denies fever or chills. Denies any injury or fall. A week prior to these symptoms, she did have bilateral otitis media and was treated appropriately. Those symptoms have since resolved. She describes the pain as stabbing and severe. She cannot reproduce it with pressure on the ribs. Overall, symptoms have been improving. MEDICATIONS: Reviewed and updated in the patient's health profile today. ADR/ALLERGIES: REVIEWED AND UPDATED IN THE PATIENT'S HEALTH PROFILE TODAY. SOCIAL HISTORY: She goes to school in [place]. Is a nonsmoker. OBJECTIVE: VS: BP: 112/70. P: 92. Wt: 144. GENERAL: She is pleasant and healthy appearing, in no acute distress. Appears relaxed. HEENT: Sclerae are clear. Conjunctivae not injected. Mucous membranes are moist. Pupils equally round and reactive to light. TMs are clear. Throat is nonerythematous. There are no exudates. NECK: Supple. There is no lymphadenopathy. No thyromegaly or masses. LUNGS: Clear to auscultation, without rhonchi or wheezes. HEART: Regular rate and rhythm, without murmur. ABDOMEN: Soft, nontender, nondistended. No organomegaly. She does have pain with palpation on the left lower lateral rib cage, mostly over the last two ribs. This does seem to reproduce her pain. ASSESSMENT: Left chest wall/rib pain. Suspect contusion or a muscle strain here. PLAN: She was given Naprosyn and a narcotic in the urgent care. She can continue with those medications as needed. Advised that she use the narcotic very judiciously and did discuss the usual precautions. Recommend taking the Naprosyn with food twice daily regularly for the next five days, then as needed. Also discussed heat or ice to the area. This should continue to improve over the next several weeks. If not, or if symptoms worsen, or if she develops cough, fever, shortness of breath, etc., she needs to return promptly for reevaluation. [id number] C: 10/13/06 18:41 DOCUMENT: [id number] OYMENT CONSULTANT documented in this encounter Plan of Treatment Upcoming Encounters Date Type Specialty Care Team Description 05/18/2022 Appointment Rheumatology Erasmo Horn MD [address] [facility] [id number] (Wo rk) documented as of this encounter Visit Diagnoses Not on filedocumented in this encounter Care Teams Software Integration Developer Relationship Specialty Start Date End Date Md Valentin MD PCP - General 11/28/10 03/07/15 [place], [place] [address] documented as of this encounter
--- OUTSIDE RECORDS SUMMARY | 2022-05-17 08:35 | XMS_ITS | Encounter Summary ---
:1985 Author Organization [facility] Address [address] [place] [address] Care Team Providers Name Role Phone Md YOBANI Valentin Primary Care Provider Encounter Details Date Type Department Care Team Description 06/24/2008 Office Visit [facility] Helena Savage, [address] [facility] [place] [address] [facility] [phone] [place], [place] [address] Social History Tobacco Use Types Packs/Day Years Used Date Smoking Tobacco: Never Assessed Sex Assigned at Date Recorded Not on file documented as of this encounter Progress Notes Helena Savage PA-C - 06/24/2008 12:01 AM CDT Progress Notes signed by Helena Savage PA-C at 07/03/08 0853 Author: Helena Savage PA-C Service: (none) Author Type: Resource Filed: 12/17/10 0823 Note Time: 06/24/08 0001 Status: Signed Percussion Instructor: Helena Savage PA-C (Resource) NAME: MANJIT DOHERTY MR#: [id number] ACCT: [id number] VISIT: [id number] DICTATING CLINICIAN: HELENA SAVAGE PA-C CONFIRM #: [id number] LOC: 520 CLINIC PROGRESS NOTE Corrected Copy 06/26/08 sw/t DATE OF VISIT: 06/24/2008 SUBJECTIVE: A 22-year-old female presents to Urgent Care complaining of chest pressure which she has had solidly for 3 hours. She states that she was at school when she became a little dizzy after standing from a sitting position early today and now has been complaining of this pushing on my chest constant pain that she rates as a 6/10. She denies any change with movement or with inspiration. Patient had a previous cold symptoms about a week ago but had no cough. Now, she is a little bit of a cough. She denies any prior history of a pulmonary embolus or collapsed lung. 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 She has had no fever, chills, wheezing, lower leg edema. MEDICAL HISTORY: No past medical history of heart problems. All of the rest of complete review of systems is negative. PAST MEDICAL HISTORY: Patient suffers from juvenile rheumatoid arthritis. She smokes 1 pack of cigarettes every 3 days. Denies any use of recreational drug. Caffeine, maybe one can of pop a day. FAMILY HISTORY: Patient's mother has a history of hypertension. Dad's sister and father both have a history of diabetes. The patient denies any history of anxiety. OBJECTIVE: VS: BP: 134/90. T: 97.8. P: 107. R: 18. O2 sat: 99%. Well-developed female in no acute distress. Alert and cooperative. Patient looks well. She is alert and cooperative. SKIN: Warm and dry. No lesions, erythema, or rashes. HEENT: Normal. LUNGS: Lungs are clear. No rhonchi, wheezing or crackles. CVS: Regular rate and rhythm. No murmurs, rubs, or gallops. ABDOMEN: Skin is clear. Bowel sounds throughout. No rebound, guarding, no tenderness. No organomegaly. No masses are felt. Patient's EKG was ordered and reviewed by myself, shows normal sinus rhythm with sinus arrhythmia. Ventricular rate is 96. Patient's white blood cell count, as ordered and reviewed by myself, was 6.2 with platelets 294, and neutrophils were 57.2. The patient's fingerstick glucose was 114. Patient was given 2 liters nasal cannula oxygen which did not help. Her chest x-ray was ordered and reviewed by myself and was negative. TSH and free T4 are pending. Patient's dimer is 0.5, and troponin is less than 0.10. ASSESSMENT: Chest pain, rule out PE. PLAN: The patient had already been here for quite some time, and we were unable to access the line on her to give her further medications such as morphine. I did give her a GI cocktail, as well, which did not help. She states it did not change the pressure at all. Therefore, the patient was sent home with her boyfriend. I did call them with the results of the troponin and dimer at home, and because the dimer was elevated, did advise her that she would need to go to [facility] for further evaluation. Her boyfriend will drive her. The patient still states that she was having the pain, pressure, as a 02/03 when I called her at approximately 8:30 tonight. The patient's report was called to [facility] ER, and the patient will be further worked up there. Total time of direct patient care with this patient was over 2 hours. Total time that patient was here was over 3. LAG:[id number] C: 06/25/08 07:17 CONFIRM #: [id number] NERY PIPELINE OPERATOR documented in this encounter Plan of Treatment Upcoming Encounters Date Type Specialty Care Team Description 05/18/2022 Appointment Rheumatology Erasmo Horn MD [address] [facility] N [address] (Wo rk) documented as of this encounter Procedures Procedure Name Priority Date/Time Associated Diagnosis Comme nts XR CHEST 2 VIEWS Routine 06/24/2008 5:47 PM Resul ts for this CDT procedure are i n the results section. documented in this encounter Results XR Chest 2 Views (06/24/2008 5:47 PM CDT) Anatomical Region Laterality Modality Chest, Lung Other Specimen (Source) Anatomical Location Collection Method / Collectio n Time Received Time / Laterality Volume Impressions 06/24/2008 5:47 PM CDT : ??Negative. [facility]/ [id number] Dictating ADRIÁN BENTON Radiologist Narrative 06/24/2008 5:47 PM CDT CLINICAL HISTORY: ??22-year-old female w ith chest tightness. Procedure Note Adrián Shi MD - 11/02/2016Formattin g of this note might be different from the original. CLINICAL HISTORY: 22-year-old female wit h chest tightness. IMPRESSION : Negative. [facility]/ [id number] Dictating ADRIÁN BENTON Radiologist Helena Savage PA-C RAD GD documented in this encounter Visit Diagnoses Not on filedocumented in this encounter Care Teams Chief Wharfinger Relationship Specialty Start Date End Date Md Valentin MD PCP - General 11/28/10 03/07/15 [place] [address] documented as of this encounter
--- OUTSIDE RECORDS SUMMARY | 2022-05-17 08:35 | XMS_ITS | Encounter Summary ---
:1985 Author Organization [facility] Address [address] [place] [address] Care Team Providers Name Role Phone Md YOBANI Valentin Primary Care Provider Encounter Details Date Type Department Care Team Description 02/20/2006 Office Visit [facility] arvind Summers, [address] [facility] [place] [address] [address] [facility] [phone] [facility] N [address] (Wo rk) Social History Tobacco Use Types Packs/Day Years Used Date Smoking Tobacco: Never Assessed Sex Assigned at Date Recorded Not on file documented as of this encounter Last Filed Vital Signs Vital Sign Reading Time Taken Comments Blood Pressure 104/58 02/20/2006 3:19 PM CDT Pulse 90 02/20/2006 3:19 PM CDT Temperature - - Respiratory Rate - - Oxygen Saturation - - Inhaled Oxygen Concentration - - Weight 60.3 kg (132 lb 15.7 oz) 02/20/2006 3:19 PM CDT C: 60.3kg Height - - Body Mass Index - - documented in this encounter Progress Notes Derrick Summers MD - 02/20/2006 12:01 AM CDT Progress Notes signed by Derrick Summers MD at 02/21/06 1610 Author: Derrick Summers MD Service: (none) Author Type: Physician Filed: 12/16/10 1311 Note Time: 02/20/06 0001 Status: Signed Assistant Librarian: Derrick Summers MD (Physician) NAME: MANJIT DOHERTY MR: [id number] ACCT: [id number] VISIT: [id number] DICTATING CLINICIAN: DERRICK SUMMERS MD JOB: [id number] CLINIC PROGRESS NOTE DATE OF VISIT: 02/20/2006 SUBJECTIVE: : 1985. Chief Complaint: Follow up for polyarticular JRA. HISTORY OF PRESENT ILLNESS: Manjit has been doing very well. I decreased methotrexate from 12.5 to 10 mg per week, and she has not had any recurrent swelling knees at all. She hardly needs any naproxen to help for the joint pain. She has been tolerating methotrexate well. Recent blood tests on 02/13/06 revealed normal CBC, ALT, and albumin. She is quite happy. Past medical history, family and social history, current medicines were reviewed and updated in EMR. ADR/ALLERGIES: REVIEWED AND UPDATED IN EMR. OBJECTIVE: VS: BP: 104/58. P: 90. Wt: 133 lb. GENERAL APPEARANCE: Young female who is not in acute distress. SKIN: No rash, tophus, nodule, or edema. MUSCULOSKELETAL: No significant synovitis or active arthritis involving any joints of 4 extremities. Normal gait, normal muscle power and tone. ASSESSMENT: Polyarticular JRA, in remission. PLAN: I am very satisfied with her clinical improvement. Will ask her to continue on methotrexate 10 mg per week and folic acid 1 mg per day. If she is doing well within the next few months, I will start tapering her methotrexate down to 0. I will see her back again in 3 months with repeated blood tests with CBC, ALT, and albumin. Total time 15 minutes with 10 minutes spent for counseling, eduction, discussion about management of her JRA and lab results. TP:[id number] C: 02/21/06 15:44 DOCUMENT: [id number] documented in this encounter Plan of Treatment Upcoming Encounters Date Type Specialty Care Team Description 05/18/2022 Appointment Rheumatology Erasmo Horn MD [address] [facility], [facility] [address] (Wo rk) documented as of this encounter Visit Diagnoses Not on filedocumented in this encounter Care Teams Dip Filler Relationship Specialty Start Date End Date Md Valentin MD PCP - General 11/28/10 03/07/15 [place], [place] [address] documented as of this encounter
--- OUTSIDE RECORDS SUMMARY | 2022-05-17 08:35 | XMS_ITS | Encounter Summary ---
:1985 Author Organization [facility] Address [address] [place] [address] Care Team Providers Name Role Phone Md YOBANI Valentin Primary Care Provider Encounter Details Date Type Department Care Team Description 01/24/2006 [facility] [address] [place] [address] Social History Tobacco Use Types Packs/Day Years Used Date Smoking Tobacco: Never Assessed Sex Assigned at Date Recorded Not on file documented as of this encounter Plan of Treatment Upcoming Encounters Date Type Specialty Care Team Description 05/18/2022 Appointment Rheumatology Erasmo Horn MD [address] [facility] [id number] (Wo rk) documented as of this encounter Visit Diagnoses Not on filedocumented in this encounter Care Teams Branch Credit Counselor Relationship Specialty Start Date End Date Md Valentin MD PCP - General 11/28/10 03/07/15 [place] [address] documented as of this encounter
--- OUTSIDE RECORDS SUMMARY | 2022-05-17 08:35 | XMS_ITS | Encounter Summary ---
:1985 Author Organization [employer] Address [address] [place] [address] Care Team Providers Name Role Phone Md YOBANI Valentin Primary Care Provider Encounter Details Date Type Department Care Team Description 01/23/2007 PN Conversion Only [place] [facility] Nathan Lopez, [address] [place] [id number] [place] [address] [place] [address] (Wo rk) Social History Tobacco Use Types Packs/Day Years Used Date Smoking Tobacco: Never Assessed Sex Assigned at Date Recorded Not on file documented as of this encounter Plan of Treatment Upcoming Encounters Date Type Specialty Care Team Description 05/18/2022 Appointment Rheumatology Erasmo Horn MD [address] [facility] N [id number] (Wo rk) documented as of this encounter Procedures Procedure Name Priority Date/Time Associated Diagnosis Comme nts STREP GROUP A Routine 01/23/2007 1:46 PM Results for this ANTIGEN TEST CDT procedure are i n the results section. BETA STREP FOLLOWUP Routine 01/23/2007 1:46 PM Re sults for this CDT procedure are i n the results section. documented in this encounter Results Strep Group A Antigen Test (01/23/2007 1:46 PM CDT) Analysis Performed At Patho logist Time Signature Strep Group A Negative Negative HP CONVERSION Antigen Test Comment: Culture to follow. Specimen (Source) Anatomical Collection Method Collection Time Re ceived Time Location / / Volume Laterality 01/23/2007 1:46 PM CDT Nathan Lopez PA-C LAB_1 Performing Organization Address City/[facility] Code Phon e Number HP CONVERSION Beta Strep Followup (01/23/2007 1:46 PM CDT) P athologist Signature Strep Screen SEE TEXT HP CONVERSION Comment: Patient: MANJIT DOHERTY Rapid Strep Follow up Culture @ ? Collected: ??[id number] ??[id number] Source: Throat ?Processed: ??[id number] ??1409 ? 1V Final Report ------ ?[id number] ??1359 No beta hemolytic Strep group A isolated . @ = Rapid F/U Cult Performed at ??[address] [place], [place] ?[address] Specimen (Source) Anatomical Collection Method Collection Time Re ceived Time Location / / Volume Laterality 01/23/2007 1:46 PM CDT Nathan Lopez PA-C LAB_1 Performing Organization Address [facility] Phon e Number HP CONVERSION documented in this encounter Visit Diagnoses Not on filedocumented in this encounter Care Teams Tunnel Mucker Relationship Specialty Start Date End Date Md Valentin MD PCP - General 11/28/10 03/07/15 [place] [address] documented as of this encounter
--- OUTSIDE RECORDS SUMMARY | 2022-05-17 08:35 | XMS_ITS | Encounter Summary ---
:1985 Author Organization [employer] Address [address] [place] [address] Care Team Providers Name Role Phone Unavailable Primary Care Provider Unavailable Encounter Details Date Type Department Care Team Description 06/25/2008 Emergency [facility] Demetrio Christopher MD [address] [place] [address] Demetrio Christopher MD [address] [place] [address] [place] [address] Social History Tobacco Use Types Packs/Day Years Used Date Smoking Tobacco: Never Assessed Sex Assigned at Date Recorded Not on file documented as of this encounter Last Filed Vital Signs Vital Sign Reading Time Taken Comments Blood Pressure 134/90 06/24/2008 4:29 PM CDT Pulse 107 06/24/2008 4:29 PM CDT Temperature 36.8 ??C (98.2 ??F) 06/24/2008 4:29 C: 36.8 C Si multaneous PM CDT filing. User may not have seen previo us data. Respiratory Rate 18 06/24/2008 4:29 PM CDT Oxygen Saturation 99% 06/24/2008 4:29 PM CDT Inhaled Oxygen - - Concentration Weight - - Height - - Body Mass Index - - documented in this encounter Medications at Time of Discharge Medication Sig Dispensed Refills Start Date End Date desogestrel-ethinyl Take 1 tablet by mouth 84 4 04/2908/09/2010 estradiol (DESOGEN) daily (every 24 0.15-30 MG-MCG tablet hours). LW Addl Instr:Follow package directions unknown medication Indications: PN: 0 06/24/2008 08/22/2010 [...] 04/17/2005 08/22/2010 documented as of this encounter ED Notes Demetrio Christopher MD - 06/25/2008 12:01 AM CDT ED Provider Notes signed by Demetrio Christopher MD at 07/17/08 0342 Author: Demetrio Christopher MD Service: (none) Author Type: Physician Filed: 12/17/10 0824 Note Time: 06/25/08 0505 Status: Signed Four Slide Machine Operator: Demetrio Christopher MD (Physician) NAME: MANJIT DOHERTY MR#: [id number] ACCT: [id number] VISIT: AUTHENTICATING CLINICIAN: DEMETRIO CHRISTOPHER MD CONFIRM #: [id number] LOC: 1 EMERGENCY CENTER REPORT : 1985. DATE OF SERVICE: 06/24/08. CHIEF COMPLAINT: Chest discomfort. HISTORY OF PRESENT ILLNESS: At about 11 a.m. on the , this patient stood up and felt lightheaded. She had a sense of not getting enough air. She had no particular pain in her chest but felt as though she were short of breath and this persisted. She was seen at Urgent Care where she was found to have a D-dimer 0.5, minimally elevated. She was referred here. Before I arrived, the patient had a UPT, ECA, troponin, D-dimer and PE scan of her chest ordered. An EKG had not been ordered. She is currently on Desogen, triamcinolone cream, methotrexate (for exacerbation of juvenile rheumatoid arthritis). She has no adverse drug reactions. PAST MEDICAL HISTORY: Juvenile rheumatoid arthritis. She has a history of tobacco abuse (ongoing). She has no history of VTE, myocardial pathology, thyroid disease, diabetes. SOCIAL HISTORY: She is here with a respiratory practitioner. She is a patient of Byron Shannon. PAST MEDICAL HISTORY/PAST SURGICAL HISTORY: MEDICATIONS: ALLERGIES: SOCIAL HISTORY/FAMILY HISTORY: REVIEW OF SYSTEMS: She denies recent hemoptysis, wheezing, productive cough, PND, orthopnea, increasing dyspnea on exertion, claudication, vomiting, diarrhea, abdominal pain, sustained immobility or asymmetric pain or swelling in the lower extremities. At the time I saw the patient, she had no complaints except for being weak and somewhat bored. She had been nauseated before I saw her but 4 mg of IV Zofran given before I arrived, had eradicated that. She has no urinary symptoms. Other review of systems is per HPI or negative. FAMILY HISTORY: No history of VTE in the patient's propinquity. There is no history of familial cardiac pathology at a young age. OBJECTIVE: VS: BP: 141/76. T: 97.6. P: 96. R: 16. Oximeter: 98. These are triage vitals. When I saw the patient, heart rate was in the 80s, respiratory rate was 14, blood pressure was 128/80 and oximeter saturation was upper 90s on room air. GENERAL: The patient had no complaints except for being tired when I saw her. HEENT: Dry mucosa. Neck supple. Eyes anicteric. LUNGS: Clear. CARDIAC: Regular rate and rhythm. ABDOMEN: Soft without tenderness, masses or organomegaly. EXTREMITIES: Negative for calor, cording, Homans sign or significant dependent edema. SKIN: Warm and dry. LABS AND DIAGNOSTICS: At Urgent Care, the patient had a normal CBC and this was not repeated. Basic metabolic profile was normal. Urine test was negative. Urinalysis was negative. CT scan of the chest PE protocol done before I arrived, as the labs which were done before I arrived, was negative. EKG was added on by myself and showed sinus rhythm, rate in the 70s. No acute ST-T wave changes, normal axis and interval. COURSE IN THE EMERGENCY ROOM: In the emergency room, an IV of normal saline was begun before I arrived. The patient's nausea was treated before I arrived by the intravenous administration of 4 mg of the Zofran and she was not nauseated when I saw her. She was hemodynamically stable without ectopy or subjective complaints. ASSESSMENT: Episode of lightheadedness and sense of shortness of breath, self-limited, with negative extensive workup. PHYSICAL EXAMINATION: EMERGENCY DEPARTMENT COURSE: IMPRESSION: PLAN: She will go home with a prescription for Zofran ODT. She should use these as needed for nausea. She should force fluids. She should follow up as necessary. She is encouraged, of course, to stop smoking. 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 CT ANGIO CHEST W IV STAT 06/24/2008 11:19 PM R esults for this CONT PE STUDY CDT procedure are in the results section. EMERGENCY CENTER Routine 06/24/2008 10:10 PM Resu lts for this DRAW AND HOLD CDT procedure are in the results section. EC TROPONIN-I (NPT) Routine 06/24/2008 10:10 PM R esults for this CDT procedure are i n the results section. EC PANEL Routine 06/24/2008 10:10 PM Results for this NA,K,CL,BUN,CRE,GLU, CDT procedu re are in HGB, HCT the results section. EC URINE Routine 06/24/2008 9:31 PM Res ults for this (NPT) CDT procedure are i n the results section. documented in this encounter Results ECG 12 Lead Outpatient (06/25/2008 12:32 AM CDT) Specimen (Source) Anatomical Collection Method Collection Time Re ceived Time Location / / Volume Laterality 06/25/2008 12:32 AM CDT Narrative HP CONVERSION - 06/25/2008 12:32 AM CDT done Normal sinus rhythm Normal ECG When compared with ECG of 24-JUN-2008 1 6:41, No significant change was found Demetrio Christopher MD PN ECG ORDERABLES Performing Organization Address City/State/ZIP Code Phon e Number HP CONVERSION CT Angio Chest W IV Cont PE Study (06/24/2008 11:19 PM CDT) Anatomical Region Laterality Modality Chest, Lung, Vascular Other Specimen (Source) Anatomical Location Collection Method / Collectio n Time Received Time / Laterality Volume Impressions 06/24/2008 11:19 PM CDT : ??No pulmonary embolus detected. ??Clear lungs. ADDENDUM DICTATED BY NAFISA CADENA MD. MT/car [id number] Addendum Ends This is a preliminary Emergency Center i nterpretation. ??Please see addended report for final interpretation . Impression: No PE detected, clear lungs . Dictating NAFISA CARRASCO Physician Narrative 06/24/2008 11:19 PM CDT Addendum Begins CLINICAL HISTORY: ??D-dimer elevated. TECHNIQUE: ??CT pulmonary angiogram was performed following 125 mL of Optiray 300 intravenously. FINDINGS: ??The contrast bolus is adequa te in terms of timing and density. ??There is mild respiratory mot ion at the lung bases. ??No definite pulmonary embolus is detected. The lungs and pleural spaces are clear. ??No mediastinal, hilar, or axillary lymphadenopathy. ??No pericardi al effusions. ??Very limited visualization of the upper abdomen. Procedure Note Nafisa Cadena MD - 10/26/2016For matting of this note might be different from the original. Addendum Begins CLINICAL HISTORY: D-dimer elevated. TECHNIQUE: CT pulmonary angiogram was pe rformed following 125 mL of Optiray 300 intravenously. FINDINGS: The contrast bolus is adequate in terms of timing and density. There is mild respiratory motio n at the lung bases. No definite pulmonary embolus is detected. The lungs and pleural spaces are clear. No mediastinal, hilar, or axillary lymphadenopathy. No pericardial effusions. Very limited visualization of the upper abdomen. IMPRESSION : No pulmonary embolus detected. Clear l ungs. ADDENDUM DICTATED BY NAFISA CADENA MD. MT/car [id number] Addendum Ends This is a preliminary Emergency Center i nterpretation. Please see addended report for final interpretation . Impression: No PE detected, clear lungs . Dictating NAFISA CARRASCO Physician Amos Gonzales MD RAD CT Emergency Center Draw And Hold (06/24/2008 10:10 PM CDT) athologist Signature Emergency Done No normal HP CONVERSION Center Draw range And Hold Specimen (Source) Anatomical Collection Method Collection Time Re ceived Time Location / / Volume Laterality 06/24/2008 10:10 PM CDT Amos Gonzales MD LAB_1 Performing Organization Address City/State/ZIP Code Phon e Number HP CONVERSION (ABNORMAL) EC Panel Na,K,Cl,BUN,Cre,Glu, Hgb, Hct (06/24/2008 10:10 PM CDT) Analysis Performed At Patho logist Time Signature Hematocrit 40 38 - 51 HP CONVERSION (NPT) %PCV Calculated 13.6 12.0 - HP CONVERSION Hemoglobin 17.0 gm/dL Blood Urea 9 5 - 26 HP CONVERSION Nitrogen mg/dL Lab Glucose 99 60 - 100 HP CONVERSION mg/dL Chloride 106 98 - 110 HP CONVERSION mEq/L Sodium 136 (L) 137 - 147 HP CONVERSION mEq/L Potassium 4.5 3.5 - 5.2 HP CONVERSION mEq/L Creatinine 0.7 0.5 - 1.5 HP CONVERSION Rapid mg/dL Total Carbon 22 (L) 24 - 29 HP CONVERSION Dioxide mEq/L Specimen (Source) Anatomical Collection Method Collection Time Re ceived Time Location / / Volume Laterality 06/24/2008 10:10 PM CDT Amos Gonzales MD LAB_1 Performing Organization Address City/[facility] Code Phon e Number HP CONVERSION EC Troponin-I (NPT) (06/24/2008 10:10 PM CDT) P athologist Signature TROPONIN I <0.1 0.00 - 0.30 HP CONVERSION ng/mL Specimen (Source) Anatomical Collection Method Collection Time Re ceived Time Location / / Volume Laterality 06/24/2008 10:10 PM CDT Amos Gonzales MD LAB_1 Performing Organization Address [facility] Phon e Number HP CONVERSION EC Urine (NPT) (06/24/2008 9:31 PM CDT) Patholo gist Method Time Signature Urine Negative No normal HP CONVERSION Test range Comment: The sensitivity of this assay is 25 mIU/ mL. This test can detect as early as 10-12 days after conception. It may be positive before a first missed menses. A negative result does no t rule out an early . Specimen (Source) Anatomical Collection Method Collection Time Re ceived Time Location / / Volume Laterality 06/24/2008 9:31 PM CDT Amos Gonzales MD LAB_1 Performing Organization Address City/[facility] Code Phon e Number HP CONVERSION documented in this encounter Visit Diagnoses Not on filedocumented in this encounter
--- OUTSIDE RECORDS SUMMARY | 2022-05-17 08:35 | XMS_ITS | Encounter Summary ---
:1985 Author Organization [employer] Address [address] [place] [address] Care Team Providers Name Role Phone Md YOBANI Valentin Primary Care Provider Encounter Details Date Type Department Care Team Description 06/24/2008 PN Conversion Only [place] [facility] Jason Tolentino [address] [facility] [place] [address] OFF SITE [phone] [address] [facility] [place] [address] Social History Tobacco Use Types Packs/Day Years Used Date Smoking Tobacco: Never Assessed Sex Assigned at Date Recorded Not on file documented as of this encounter Plan of Treatment Upcoming Encounters Date Type Specialty Care Team Description 05/18/2022 Appointment Rheumatology Erasmo Horn MD [address] [facility] [address] [facility] [address] [address] (Wo rk) documented as of this encounter Procedures Procedure Name Priority Date/Time Associated Diagnosis Comme nts ECG 12 LEAD CLINIC Routine 06/24/2008 4:41 PM Res ults for this CDT procedure are i n the results section. documented in this encounter Results ECG 12 lead clinic (06/24/2008 4:41 PM CDT) Specimen (Source) Anatomical Collection Method Collection Time Re ceived Time Location / / Volume Laterality 06/24/2008 4:41 PM CDT Narrative HP CONVERSION - 06/24/2008 4:41 PM CDT Normal sinus rhythm with sinus arrhythmia Normal ECG No previous ECGs available Imr Conversion PN ECG ORDERABLES Performing Organization Address City/State/ZIP Code Phon e Number HP CONVERSION documented in this encounter Visit Diagnoses Not on filedocumented in this encounter Care Teams Manager Casino Relationship Specialty Start Date End Date Md Valentin MD PCP - General 11/28/10 03/07/15 [place] [address] documented as of this encounter
--- OUTSIDE RECORDS SUMMARY | 2022-05-17 08:35 | XMS_ITS | Encounter Summary ---
:1985 Author Organization [employer] Address [address] [place] [address] Care Team Providers Name Role Phone Md YOBANI Valentin Primary Care Provider Encounter Details Date Type Department Care Team Description 01/24/2006 PN Conversion Only [place] [facility] [place], [address] [place] [address] [address] [place] [address] Social History Tobacco Use Types Packs/Day Years Used Date Smoking Tobacco: Never Assessed Sex Assigned at Date Recorded Not on file documented as of this encounter Plan of Treatment Upcoming Encounters Date Type Specialty Care Team Description 05/18/2022 Appointment Rheumatology [facility]asmo Horn MD [address] [facility] [address] (Wo rk) documented as of this encounter Procedures Procedure Name Priority Date/Time Associated Diagnosis Comme nts STREP GROUP A Routine 01/24/2006 4:22 PM Results for this ANTIGEN TEST CDT procedure are i n the results section. BETA STREP FOLLOWUP Routine 01/24/2006 4:22 PM Re sults for this CDT procedure are i n the results section. documented in this encounter Results Strep Group A Antigen Test (01/24/2006 4:22 PM CDT) Analysis Performed At Patho logist Time Signature Strep Group A Negative Negative HP CONVERSION Antigen Test Comment: Culture to follow. Specimen (Source) Anatomical Collection Method Collection Time Re ceived Time Location / / Volume Laterality 01/24/2006 4:22 PM CDT Rock Mcneil MD LAB_1 Performing Organization Address City/[facility]/ZIP Code Phon e Number HP CONVERSION Beta Strep Followup (01/24/2006 4:22 PM CDT) athologist Signature Strep Screen SEE TEXT HP CONVERSION Comment: Patient: MANJIT DOHERTY Rapid Strep Follow up Culture @ ? Collected: ??[id number] ??162 Source: Throat ?Processed: ??[id number] ??[id number] ? 1V Final Report ------ ?[id number] ??1103 No beta hemolytic Strep group A isolated . @ = Rapid F/U Cult Performed at ??[address] [place], [place] ?[address] Specimen (Source) Anatomical Collection Method Collection Time Re ceived Time Location / / Volume Laterality 01/24/2006 4:22 PM CDT Rock Mcneil MD LAB_1 Performing Organization Address [facility] Phon e Number HP CONVERSION documented in this encounter Visit Diagnoses Not on filedocumented in this encounter Care Teams Operations Vice President Relationship Specialty Start Date End Date Md Homero, PCP - General 11/28/10 03/07/15 [place] [address] documented as of this encounter
--- OUTSIDE RECORDS SUMMARY | 2022-05-17 08:35 | XMS_ITS | Encounter Summary ---
:1985 Author Organization [employer] Address [address] [place] [address] Care Team Providers Name Role Phone Md YOBANI Valentin Primary Care Provider Encounter Details Date Type Department Care Team Description 01/24/2006 Office Visit [facility] [place] [address] [address] [place] [address] [phone] Social History Tobacco Use Types Packs/Day Years Used Date Smoking Tobacco: Never Assessed Sex Assigned at Date Recorded Not on file documented as of this encounter Last Filed Vital Signs Vital Sign Reading Time Taken Comments Blood Pressure 114/77 01/24/2006 12:34 PM CDT Pulse 84 01/24/2006 12:34 PM CDT Temperature 37.1 ??C (98.8 ??F) 01/24/2006 12:34 PM ORAL C: 37.1 C CDT Respiratory Rate 14 01/24/2006 12:34 PM CDT Oxygen Saturation 99% 01/24/2006 12:34 PM CDT Inhaled Oxygen Concentration - - Weight - - Height - - Body Mass Index - - documented in this encounter Progress Notes Rock Tierney MD - 01/24/2006 12:01 AM CDT Progress Notes signed by Rock Tierney MD at 02/28/06 1332 Author: Rock Tierney MD Service: (none) Author Type: Physician Filed: 12/16/10 1238 Note Time: 01/24/06 0001 Status: Signed Poultry Picker: Rock Tierney MD (Physician) NAME: MANJIT DOHERTY MR: [id number] ACCT: [id number] VISIT: [id number] DICTATING CLINICIAN: ROCK TIERNEY MD JOB: [id number] CLINIC PROGRESS NOTE DATE OF VISIT: 01/24/2006 SUBJECTIVE: The patient has had a sore throat for 6 days and then developed a little bit of a frontal headache and a right ear ache. She has also been coughing some yellow phlegm and has had some yellow nasal drainage but no vomiting or diarrhea. PAST HISTORY: Negative for similar problems. SOCIAL HISTORY: She is in school and may have been exposed to some people at school with respiratory infections. No one in her family is sick. ADR/ALLERGIES: NO ALLERGIES TO MEDICINES. She denies control or or nursing. MEDICATIONS: She does take methotrexate and folic acid for rheumatoid arthritis that she sounds like she just developed last year. OBJECTIVE: VS: T: 98. P: 84. R: 14. O2 sat 99%. She is alert and oriented times 3. HEENT: Slightly swollen anterior glands with right serous otitis media and irritated throat probably from sinus drainage. Sinuses are tender. Cough is slightly bronchial. LUNGS: Clear to auscultation. She wanted a strep test, given that she has had some recurrences in the past and we did that, and that was negative. ASSESSMENT: 1. Serous otitis media. 2. Sinusitis which apparently is causing pharyngitis. 3. Pharyngitis. 4. Bronchitis. PLAN: Keflex 500 mg t.i.d. times 10 days. Push fluids. May also take Tylenol. She will take the whole course of antibiotics and follow up if not improved quickly and completely with everything. [id number] C: 01/24/06 15:04 DOCUMENT: [id number] documented in this encounter Plan of Treatment Upcoming Encounters Date Type Specialty Care Team Description 05/18/2022 Appointment Rheumatology Erasmo Horn MD [address] [place] [address] (Wo rk) documented as of this encounter Visit Diagnoses Not on filedocumented in this encounter Care Teams Mmd Unit Teacher Relationship Specialty Start Date End Date Md Homero, PCP - General 11/28/10 03/07/15 [place] [facility] [address] documented as of this encounter
--- OUTSIDE RECORDS SUMMARY | 2022-05-17 08:35 | XMS_ITS | Encounter Summary ---
:1985 Author Organization [employer] [facility] Address [address] [place] [address] Care Team Providers Name Role Phone Md YOBANI Valentin Primary Care Provider Encounter Details Date Type Department Care Team Description 05/26/2008 Office Visit [place] Rosalie Angel, Obstetrics/Gynecolog y [facility] [address] [place] [address] Social History Tobacco Use Types Packs/Day Years Used Date Smoking Tobacco: Never Assessed Sex Assigned at Date Recorded Not on file documented as of this encounter Last Filed Vital Signs Vital Sign Reading Time Taken Comments Blood Pressure 118/64 05/26/2008 11:32 AM CDT Pulse 72 05/26/2008 11:32 AM CDT Temperature - - Respiratory Rate - - Oxygen Saturation - - Inhaled Oxygen Concentration - - Weight 60.2 kg (132 lb 12.5 oz) 05/26/2008 11:32 AM C: 60.2kg CDT Height 156.2 cm (5' 1.5) 05/26/2008 11:32 AM C: 156.2c m CDT Body Mass Index 24.68 05/26/2008 11:32 AM CDT documented in this encounter Progress Notes Rosalie Angel APRN, CNP - 05/26/2008 12:01 AM CDT Progress Notes signed by Rosalie Angel APRN, CNP at 05/26/08 8202 Author: DASHAWN Ocasio Service: (none) Author Type: Nurse Practitioner Filed: 12/17/10 0738 Note Time: 05/26/08 0001 Status: Signed Remote Control Mirror Installer: DASHAWN Ocasio (Nurse Practitioner) Subjective: Patient presents initially for annual exam. Following discussion, she would prefer to wait until age 23 since she is not sexually active. She would like to discuss contraception to manage her heavy menstrual periods. She also states that she stopped her menses and then about 3 days later has another flow for a day. Total bleeding is up to 7 to 8 days. She has never been sexually active. Following discussion regarding options for treatment, she would like to control pills. Social history: She is a 22-year-old female. She is single. 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 Medical history: General good health. Surgical history: Negative. She has had a couple of fractures as noted and updated on patient health profile today. Medications/drug allergies are updated in lastword. Gynecologic history: Last menstrual period 05/06/08. Obstetric history: Nulliparous. Family history is positive for mother with alcohol abuse, maternal grandfather with alcohol abuse and stroke and paternal grandfather with cancer, alcohol abuse, diabetes and high blood pressure. Lifestyle and habits: She is a smoker with no current desire to quit. She exercises 4 times weekly. She does not practice breast self exam. She does wear her seatbelt. Preventative health care: She is fasting today for cholesterol fractionization and glucose. She is also agreeable to thyroid testing and hemoglobin testing due to menstrual flow. She will check insurance coverage regarding Gardasil and hepatitis A series. If covered, she will make an appointment with the injection nurse. Remainder of complete review of systems negative. Objective: Vital signs as noted in lastword flowsheet. Patient is a pleasant appearing woman in no acute distress. Affect and appearance are appropriate. She is well groomed. She is a good historian. Exam is deferred. Assessment: Heavy menstrual flow with desire to start oral contraceptives. Health screening. Plan: Reviewed SPECIAL PROJECTS COORDINATOR health history which is sent for scanning. Updated patient health profile. Discussed management of heavy menstrual flow. Following discussion, Rx Desogen 28 day x 1 year. Action, administration, benefits versus risk of a possible warning signs, side effects and efficacy in the event she become sexually active discussed. Pending tests include cholesterol fractionization, glucose, hemoglobin and TSH. She will be informed of test results when available. Gardasil and hepatitis A information provided. I have advised that she return to clinic in one year for initiation of Pap smear and pelvic exams or p.r.n. documented in this encounter Plan of Treatment Upcoming Encounters Date Type Specialty Care Team Description 05/18/2022 Appointment Rheumatology Erasmo Horn MD [address] [facility] [address] [address] (Wo rk) documented as of this encounter Visit Diagnoses Not on filedocumented in this encounter Care Teams Contemporary Or Modern Dancer Relationship Specialty Start Date End Date Md Valentin MD PCP - General 11/28/10 03/07/15 [place], [place] [id number] documented as of this encounter
--- OUTSIDE RECORDS SUMMARY | 2022-05-17 08:36 | XMS_ITS | Encounter Summary ---
:1985 Author Organization [employer] Address [address] [place] [address] Care Team Providers Name Role Phone Md YOBANI Valentin Primary Care Provider Reason for Visit Reason Comments Other Encounter Details Date Type Department Care Team Description 09/11/2005 Telephone [facility] [address], Other Rheumatology [address] [place] [address] [place], [place] [id number] (Wo rk) Social History Tobacco Use Types Packs/Day Years Used Date Smoking Tobacco: Never Assessed Sex Assigned at Date Recorded Not on file documented as of this encounter Progress Notes Ginna Sanchez - 09/11/2005 2:27 PM CST Phone Note filed by Ginna Sanchez MA at 12/12/102354 Author: Ginna Sanchez MA Service: (none) Author Type: (none) Filed: 12/12/101 Note Time: 09/11/057 Status: Signed Skelp Processor: Ginna Sanchez MA (Lead Front Desk Agent) Pt would like you to call her, would say no more. Avail . Created on 11Sep2005 2:27pm by GINNA SANCHEZ On 11Sep2005 3:37pm DERRICK ALEMAN wrote: Called to talk to her. She has had prolong menstruation which requires BCP. She wanted to know if it could interfere with methotrexate. Reassured here that it is OK to take both medicines. Acknowledged by DERRICK ALEMAN on 3:37pm WORKER documented in this encounter Plan of Treatment Upcoming Encounters Date Type Specialty Care Team Description 05/18/2022 Appointment [facility]umat[facility]asmo Horn MD [address] [facility] [id number] (Wo rk) documented as of this encounter Visit Diagnoses Not on filedocumented in this encounter Care Teams Dairy Feed Sales Consultant Relationship Specialty Start Date End Date Md Valentin MD PCP - General 11/28/10 03/07/15 [place], [place] [id number] documented as of this encounter
--- OUTSIDE RECORDS SUMMARY | 2022-05-17 08:36 | XMS_ITS | Encounter Summary ---
:1985 Author Organization [facility] Address [address] [facility] [address] Care Team Providers Name Role Phone Md YOBANI Valentin Primary Care Provider Encounter Details Date Type Department Care Team Description 06/13/2005 Office Visit [facility] [address] Brianna George MD [facility] Orthopedics [facility] [address] [address] [place] [address] [phone] Social History Tobacco Use Types Packs/Day Years Used Date Smoking Tobacco: Never Assessed Sex Assigned at Date Recorded Not on file documented as of this encounter Progress Notes Amos George MD - 06/13/2005 12:01 AM CDT Progress Notes signed by Amos George MD at 06/14/05 1229 Author: Amos George MD Service: (none) Author Type: Physician Filed: 12/16/10 0803 Note Time: 06/13/05 0001 Status: Signed Coremaker Helper: Amos George MD (Physician) NAME: MANJIT DOHERTY MR: [id number] ACCT: [id number] VISIT: [id number] DICTATING CLINICIAN: AMOS GEORGE MD JOB: [id number] CLINIC PROGRESS NOTE DATE OF VISIT: 06/13/2005 SUBJECTIVE: Manjit is here for followup. She has had 3 months of left knee pain and swelling without a specific injury. I saw her previously last week and ordered laboratory tests. She is here today for followup on her laboratory tests and on an MRI. Her white blood cell count on 06/05 was 5.9, hemoglobin 13.3, platelets 293, sed rate was 6, CRP was less than 0.2, and antinuclear antibody is negative, and a Lyme screen was negative. OBJECTIVE: I also reviewed her MRI today. There is a persistent effusion noted in the knee, which is moderate in size. I do not see any ligamentous injury to the ACL or PCL. She is still walking with a limp. There is no redness in the knee, but I do think that the MRI may have some injury to the tibial articular surface. However, this is certainly not severe or striking. I will review this MRI with some other orthopedic surgery colleagues for any other input. ASSESSMENT: Persistent left knee effusion. PLAN: I am going to review the MRI with our colleagues and then give the patient a call later this week and see what our next step should be. There is no evidence of infection right now and no evidence of systemic inflammatory disease. [facility]:[id number] C: 06/13/05 13:35 DOCUMENT: [id number] documented in this encounter Plan of Treatment Upcoming Encounters Date Type Specialty Care Team Description 05/18/2022 Appointment Rheumatology Erasmo Horn MD [address] [facility] N [id number] (Wo rk) documented as of this encounter Visit Diagnoses Not on filedocumented in this encounter Care Teams Plycor Operator Relationship Specialty Start Date End Date Md Valentin MD PCP - General 11/28/10 03/07/15 [place], [place] [id number] documented as of this encounter
--- OUTSIDE RECORDS SUMMARY | 2022-05-17 08:36 | XMS_ITS | Encounter Summary ---
:1985 Author Organization [employer] Address [address] [place] [address] Care Team Providers Name Role Phone Md YOBANI Valentin Primary Care Provider Encounter Details Date Type Department Care Team Description 09/07/2005 Office Visit [facility] Isabell Alicia PA-C [address] [employer] [address] [address] [place] [address] [phone] (Wo rk) Social History Tobacco Use Types Packs/Day Years Used Date Smoking Tobacco: Never Assessed Sex Assigned at Date Recorded Not on file documented as of this encounter Last Filed Vital Signs Vital Sign Reading Time Taken Comments Blood Pressure 122/72 09/07/2005 10:22 AM LEATHER CASE FINISHER Pulse 72 09/07/2005 10:22 AM LEATHER CASE FINISHER Temperature - - Respiratory Rate - - Oxygen Saturation - - Inhaled Oxygen Concentration - - Weight 62.6 kg (137 lb 15.8 oz) 09/07/2005 10:22 AM C: 62.6kg LEATHER CASE FINISHER Height - - Body Mass Index - - documented in this encounter Progress Notes Isabell James PA-C - 09/07/2005 12:01 AM CST Progress Notes signed by Isabell James PA-C at 09/08/05 1036 Author: Isabell James PA-C Service: (none) Author Type: Physician Automatic Folder Seamer Filed: 12/16/10 0948 Note Time: 09/07/05 0001 Status: Signed Poultry Barn Manager: Isabell James PA-C (Physician Automatic Folder Seamer) NAME: MANJIT DOHERTY MR: [id number] ACCT: [id number] VISIT: [id number] DICTATING CLINICIAN: ENA SIM PA-C JOB: [id number] CLINIC PROGRESS NOTE DATE OF VISIT: 09/07/2005 SUBJECTIVE: The patient is a 19-year-old female complaining of period problems. Manjit states that she has had a period that has been going on for almost a month. It started on 08/15/05 and continues today. The onset of the period was 1 week prior to when it should have started. She denies heavy bleeding, states that the flow is just slightly more heavy than she is accustomed to, never using more than 3 tampons in a day. She denies abdominal pain, denies any other vaginal discharge, denies bowel changes and constipation. Patient is not sexually active, has never been sexually active, has never had a pelvic and Pap smear exam. Never had, again, any problems with her period before. Patient does have a recent history of recently diagnosed juvenile arthritis which she is being treated with methotrexate. She has taken the methotrexate now for the past 2 weeks, is also taking folic acid and Naprosyn. Patient denies any family history of bleeding disorders or LAND ACQUISITION ANALYST pathologies of any kind. She is a high school student, she does not smoke. OBJECTIVE: VS: Reviewed, are normal in LastWord. The patient appears well, she is pleasant. She is in no acute distress. No pallor noted. LUNGS: Clear to auscultation. HEART: Regular rate and rhythm, S1, S2 noted. ABDOMEN: Soft. No masses palpated. Spleen not palpable. No pelvic masses noted. : Bimanual was performed. Patient had discomfort with insertion but no pelvic discomfort was noted. Uterus was mobile, no adnexal masses. ASSESSMENT: Dysfunctional uterine bleeding, possibly exacerbated by the recent addition of methotrexate. PLAN: Start Alesse to regulate the patient's cycles. Discussed with the patient the benefits and risks as well as how to use control pill. She has an appointment to follow up with a adult basic education teacher next month and I advised the patient to discuss the plan also with him. Advised the patient if her symptoms worsen, if the bleeding becomes heavier or she has abdominal pain to follow up as soon as possible. AMS:[id number] C: 09/08/05 09:55 DOCUMENT: [id number] HER CASE FINISHER documented in this encounter Plan of Treatment Upcoming Encounters Date Type Specialty Care Team Description 05/18/2022 Appointment Rheumatology Erasmo Horn MD [address] [facility] [address] [address] (Wo rk) documented as of this encounter Visit Diagnoses Not on filedocumented in this encounter Care Teams Senior Recruiter Relationship Specialty Start Date End Date Md Valentin MD PCP - General 11/28/10 03/07/15 [place] [address] documented as of this encounter
--- OUTSIDE RECORDS SUMMARY | 2022-05-17 08:36 | XMS_ITS | Encounter Summary ---
:1985 Author [facility] Address [address] [place] [address] Care Team Providers Name Role Phone Md YOBANI Valentin Primary Care Provider Encounter Details Date Type Department Care Team Description [facility] [address] [address] [place] [address] [phone] Social History Tobacco Use Types Packs/Day Years Used Date Smoking Tobacco: Never Assessed Sex Assigned at Date Recorded Not on file documented as of this encounter Plan of Treatment Upcoming Encounters Date Type Specialty Care Team Description 05/18/2022 Appointment Rheumatology Erasmo Horn MD [address] [facility] [phone] (Wo rk) documented as of this encounter Visit Diagnoses Not on filedocumented in this encounter Care Teams Courier Delivery Driver Relationship Specialty Start Date End Date Md Valentin MD PCP - General 11/28/10 03/07/15 [place], [place] [address] documented as of this encounter
--- OUTSIDE RECORDS SUMMARY | 2022-05-17 08:36 | XMS_ITS | Encounter Summary ---
:1985 Author Organization [employer] Address [address] [place] [address] Care Team Providers Name Role Phone Md YOBANI Valentin Primary Care Provider Encounter Details Date Type Department Care Team Description 07/04/2005 Office Visit [facility] arvind Summers, [address] [facility] [address] [address] [facility] [phone] [facility] N [address] (Wo rk) Social History Tobacco Use Types Packs/Day Years Used Date Smoking Tobacco: Never Assessed Sex Assigned at Date Recorded Not on file documented as of this encounter Last Filed Vital Signs Vital Sign Reading Time Taken Comments Blood Pressure 112/50 07/04/2005 12:41 PM SPLIT AND DRUM ROOM SUPERVISOR Pulse 100 07/04/2005 12:41 PM SPLIT AND DRUM ROOM SUPERVISOR Temperature - - Respiratory Rate - - Oxygen Saturation - - Inhaled Oxygen Concentration - - Weight 61.7 kg (135 lb 15.7 oz) 07/04/2005 12:41 PM C: 61.7kg SPLIT AND DRUM ROOM SUPERVISOR Height 156.2 cm (5' 1.5) 07/04/2005 12:41 PM C: 156.2c m SPLIT AND DRUM ROOM SUPERVISOR Body Mass Index 25.28 07/04/2005 12:41 PM SPLIT AND DRUM ROOM SUPERVISOR Body Mass Index Percentile 84.33 % 07/04/2005 12:41 PM SPLIT AND DRUM ROOM SUPERVISOR Growth Chart: CDC (Girls, 2-20 Years) documented in this encounter Progress Notes Derrick Summers MD - 07/04/2005 12:01 AM CST Progress Notes signed by Derrick Summers MD at 07/06/05 1229 Author: Derrick Summers MD Service: (none) Author Type: Physician Filed: 12/16/10 0829 Note Time: 07/04/05 0001 Status: Signed Forest Scientist: Derrick Summers MD (Physician) NAME: MANJIT DOHERTY MR: [id number] ACCT: [id number] VISIT: [id number] DICTATING CLINICIAN: DERRICK SUMMERS MD JOB: [id number] CLINIC PROGRESS NOTE DATE OF VISIT: 07/04/2005 SUBJECTIVE: : 1985. Chief Complaint: Followup of chronic left knee swelling for laboratory results and management. HISTORY OF PRESENT ILLNESS: I saw this patient about a week ago for a 3-1/2 month history of left chronic knee swelling. Evaluations have been unrevealing. She had a first arthrocentesis which showed noninflammatory fluid. However, I repeated again a week ago and the result this time showed inflammatory fluid with white blood cells of more than 7000, in which 75% is polymorphonuclear cells. There was no crystals detected. Her previous blood tests for LISA, rheumatoid factor, CCP, HLA-B27, and LISA were all negative. Lyme serology also negative. 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 The patient is returning back here for lab results and management. In between she has started having pain over the left knee, but the swelling has remained the same. Past medical history, family history, and social history were reviewed and unchanged. CURRENT MEDICINES: Reviewed and unchanged. ADR/ALLERGIES: REVIEWED AND UNCHANGED. OBJECTIVE: VS: BP: 112/50. P: 100. Ht: 61-1/2 in. Wt: 136 lb. GENERAL APPEARANCE: Young female who is not in acute distress. SKIN: No rash, tophi nodules, or edema. MUSCULOSKELETAL: Moderate left knee effusion with slight tenderness on palpation across the joint line, but no limitation of the movement. Varus-valgus strain test, Renetta test, and drawer signs are all negative. She has normal muscle power and tone, walking with less antalgic gait. Laboratory exam as I previously mentioned in history of present illness. ASSESSMENT: Juvenile pauciarticular rheumatoid arthritis. PLAN: Her serology evaluation and other inflammatory markers have been negative. Clinically this is not infection. Lyme serology was also negative, which was quite reassuring that this is not Lyme disease. I think all of her clinical manifestation and the arthrocentesis fluid results fit most with juvenile pauciarticular rheumatoid arthritis. As she has had only one joint involvement at this time, I would prefer to do an interarticular cortisone injection. Consent was verbally obtained. Left medial knee was prepared in a sterile fashion. 1% lidocaine and ethyl chloride spray was used as a local anesthetic agent. A total of 5 mL of slightly cloudy, yellowish fluid was obtained. A total of 4 mL of 1% lidocaine mixed with 60 mg of triamcinolone was injected into her left knee without acute complications. She was advised not to run or jog today. Cortisone will take a few more days to start seeing the benefit. She is allowed to continue taking Advil or Aleve as needed. Tylenol up to 1 gram 4 times a day can also be added to relieve the symptoms. I would like to just wait and see to see if there any recurrence at all. We will see her back again in a month. If there is any recurring of the symptoms, or other joints are involved, we will put her on either Plaquenil or methotrexate. I will see her back again in a month or earlier if she has any problems. The negative LISA and the disease onset more than ten years out put her at low risk of having iritis. Information related to juvenile rheumatoid arthritis and Plaquenil were provided to her and her dad who accompanied her today. Total time 25 minutes, with 10 minutes spent for the procedures and 10 minutes spent for counseling and education about juvenile rheumatoid arthritis and management. TP:[id number] C: 07/05/05 18:08 DOCUMENT: [id number] T AND DRUM ROOM SUPERVISOR documented in this encounter Plan of Treatment Upcoming Encounters Date Type Specialty Care Team Description 05/18/2022 Appointment Rheumatology Erasmo Horn MD [address] [facility] [place] N [address] (Wo rk) documented as of this encounter Visit Diagnoses Not on filedocumented in this encounter Care Teams Marine Engineering Teacher Relationship Specialty Start Date End Date Md Valentin MD PCP - General 11/28/10 03/07/15 [place] [address] documented as of this encounter
--- OUTSIDE RECORDS SUMMARY | 2022-05-17 08:36 | XMS_ITS | Encounter Summary ---
:1985 Author Organization [employer] Address [address] [place] [address] Care Team Providers Name Role Phone Md YOBANI Valentin Primary Care Provider Encounter Details Date Type Department Care Team Description 12/29/2002 PN Conversion Only [place] [address] [place] [address] [facility], [facility] Social History Tobacco Use Types Packs/Day Years Used Date Smoking Tobacco: Never Assessed Sex Assigned at Date Recorded Not on file documented as of this encounter Plan of Treatment Upcoming Encounters Date Type Specialty Care Team Description 05/18/2022 Appointment Rheumatology Erasmo Horn MD [address] [facility] N [address] (Wo rk) documented as of this encounter Procedures Procedure Name Priority Date/Time Associated Diagnosis Comme nts STREP GROUP A Routine 12/29/2002 11:04 AM Results for this ANTIGEN TEST CDT procedure are i n the results section. BETA STREP FOLLOWUP Routine 12/29/2002 11:04 AM R esults for this CDT procedure are i n the results section. documented in this encounter Results Strep Group A Antigen Test (12/29/2002 11:04 AM CDT) Analysis Performed At Patho logist Time Signature Strep Group A Negative Negative HP CONVERSION Antigen Test Comment: Culture to follow. Specimen (Source) Anatomical Collection Method Collection Time Re ceived Time Location / / Volume Laterality 12/29/2002 11:04 AM CDT Barry Slaughter MD LAB_1 Performing Organization Address City/[facility]/ZIP Code Phon e Number HP CONVERSION Beta Strep Followup (12/29/2002 11:04 AM CDT) P athologist Signature Strep Screen SEE TEXT HP CONVERSION Comment: Patient: MANJIT DOHERTY Rapid Strep Follow up Culture @ ? Collected: ??[id number] ??[id number] Source: Throat ?Processed: ??[id number] ??[id number] ? 1V Final Report ------ ?[id number] ??[id number] No beta hemolytic Strep group A isolated . @ = Rapid F/U Cult Performed at ??[address] [place], [place] ?[address] Specimen (Source) Anatomical Collection Method Collection Time Re ceived Time Location / / Volume Laterality 12/29/2002 11:04 AM CDT Barry Slaughter MD LAB_1 Performing Organization Address City/[facility] Phon e Number HP CONVERSION documented in this encounter Visit Diagnoses Not on filedocumented in this encounter Care Teams Glaze Sprayer Relationship Specialty Start Date End Date Md Valentin MD PCP - General 11/28/10 03/07/15 [place] [address] documented as of this encounter
--- OUTSIDE RECORDS SUMMARY | 2022-05-17 08:36 | XMS_ITS | Encounter Summary ---
:1985 Author Organization [facility] Address [address] [place] [address] Care Team Providers Name Role Phone Md YOBANI Valentin Primary Care Provider Encounter Details Date Type Department Care Team Description 06/16/2005 PN Conversion Only MOSQUE CONVERSION Amos George MD [address] [place] [address] (Wo rk) Social History Tobacco Use Types Packs/Day Years Used Date Smoking Tobacco: Never Assessed Sex Assigned at Date Recorded Not on file documented as of this encounter Plan of Treatment Upcoming Encounters Date Type Specialty Care Team Description 05/18/2022 Appointment Rheumatology Erasmo Horn MD [address] [place] [facility] [address] (Wo rk) documented as of this encounter Procedures Procedure Name Priority Date/Time Associated Diagnosis Comme nts MICRO GRAM STAIN Routine 06/16/2005 2:22 PM Resul ts for this ONLY CDT procedure are i n the results section. SYNOVIAL SOURCE Routine 06/16/2005 2:22 PM Result s for this CDT procedure are i n the results section. SIDE OF BODY Routine 06/16/2005 2:22 PM Results f or this CDT procedure are i n the results section. BODY FLUID CRYSTALS Routine 06/16/2005 2:22 PM Re sults for this CDT procedure are i n the results section. BODY FLUID CULTURE Routine 06/16/2005 2:22 PM Res ults for this CDT procedure are i n the results section. CELL COUNT & DIFF, Routine 06/16/2005 2:22 PM Res ults for this BODY FLUID CDT procedure are i n the results section. ANAEROBIC CULTURE Routine 06/16/2005 2:22 PM Resu lts for this CDT procedure are i n the results section. documented in this encounter Results Cell Count & Diff, Body Fluid (06/16/2005 2:22 PM CDT) [facility] gist Method Time Signature Body Fluid Type Synovial No normal HP CONVERSION range Body Fluid SlCloudy No normal HP CONVERSION Appearance range Comment: REDDISH YELLOW. Body Fluid RBC 3,200 /cmm HP CONVERSION Body Fluid WBC 935 /cmm HP CONVERSION Body Fluid Total Volume 13.0 mL HP CON VERSION Body Fluid Polys 8 % HP CONVERSION BF Lymphocytes 82 % HP CONVERSION Body Fluid Monos 10 % HP CONVERSION Body Fluid EOS 0 % HP CONVERSION BF Basophils 0 % HP CONVERSION Specimen (Source) Anatomical Collection Method Collection Time Re ceived Time Location / / Volume Laterality 06/16/2005 2:22 PM CDT Amos George MD LAB_1 Performing Organization Address City/State/ZIP Code Phon e Number HP CONVERSION MICRO GRAM STAIN ONLY (06/16/2005 2:22 PM CDT) athologist Signature Gram Stain SEE TEXT HP CONVERSION Comment: Patient: MANJIT DOHERTY Gram Stain @ ?Collected: ??[id number] ??[id number] Source: KNEE ?Processed: ??[id number] ??[id number] Moderate WBCs seen No bacteria seen @ = GRAM STAIN Performed at ??[address] [place], [place] ?[address] Specimen (Source) Anatomical Collection Method Collection Time Re ceived Time Location / / Volume Laterality 06/16/2005 2:22 PM CDT Amos George MD LAB_1 Performing Organization Address City/[facility] Code Phon e Number HP CONVERSION Body Fluid Crystals (06/16/2005 2:22 PM CDT) Patholo gist Method Time Signature Body Fluid Synovial No normal HP CONVERSION Type range Body Fluid NoCrystl No normal HP CONVERSION Crystal ID range Intracell N/A No normal HP CONVERSION Crystal range Extracell N/A No normal HP CONVERSION Crystal range Specimen (Source) Anatomical Collection Method Collection Time Re ceived Time Location / / Volume Laterality 06/16/2005 2:22 PM CDT Amos George MD LAB_1 Performing Organization Address City/[facility] Code Phon e Number HP CONVERSION Anaerobic Culture (06/16/2005 2:22 PM CDT) Analysis Performed At Patho logist Time Signature Anaerobic SEE TEXT HP CONVERSION Culture Comment: Patient: MANJIT DOHERTY Source: KNEE ?[id number] ?Processed: ??[id number] Final Report ------ ?[id number] ?[id number] Isolated from broth culture only: Staphy lococcus coagulase negative No anaerobic organisms isolated @ = ANAEROBIC CULT Performed at ??[address] [place], [place] ?[address] Specimen (Source) Anatomical Collection Method Collection Time Re ceived Time Location / / Volume Laterality 06/16/2005 2:22 PM CDT Amos George MD LAB_1 Performing Organization Address City/[facility]/ZIP Code Phon e Number HP CONVERSION Side Of Body (06/16/2005 2:22 PM CDT) P athologist Signature Synovial Fluid Left No normal HP CONVERSION Side Of Body range Specimen (Source) Anatomical Collection Method Collection Time Re ceived Time Location / / Volume Laterality 06/16/2005 2:22 PM CDT Amos George MD LAB_1 Performing Organization Address City/[facility]/ZIP Code Phon e Number HP CONVERSION Synovial Source (06/16/2005 2:22 PM CDT) P athologist Signature Synovial Fluid KNEE No normal HP CONVERSION Source range Specimen (Source) Anatomical Collection Method Collection Time Re ceived Time Location / / Volume Laterality 06/16/2005 2:22 PM CDT Amos George MD LAB_1 Performing Organization Address City/[facility]/ZIP Code Phon e Number HP CONVERSION Body Fluid Culture (06/16/2005 2:22 PM CDT) [facility] Signature Body Fluid SEE TEXT HP CONVERSION Culture Comment: Patient: MANJIT DOHERTY Culture, Body Fluid @ ? Collected: ??[id number] ??[id number] Source: KNEE ?Processed: ??[id number] ??[id number] ? LEFT KNEE Final Report ------ ?[id number] ??1510 No growth at 5 days @ = BODY FLUID CULT Performed at ??[address] [facility], [facility], ??[place] ? [address] Specimen (Source) Anatomical Collection Method Collection Time Re ceived Time Location / / Volume Laterality 06/16/2005 2:22 PM CDT Amos George MD LAB_1 Performing Organization Address City/State/ZIP Code Phon e Number HP CONVERSION documented in this encounter Visit Diagnoses Not on filedocumented in this encounter Care Teams Assessment Expert Relationship Specialty Start Date End Date Md Homero, MD PCP - General 11/28/10 03/07/15 [place] [address] documented as of this encounter
--- OUTSIDE RECORDS SUMMARY | 2022-05-17 08:36 | XMS_ITS | Encounter Summary ---
:1985 Author Organization [facility] Address [address] [place] [address] Care Team Providers Name Role Phone Md YOBANI Valentin Primary Care Provider Encounter Details Date Type Department Care Team Description 06/28/2005 Office Visit [facility] [address] Jorge Aleman MD [address] [place] [address] [place] [address] [phone] (Wo rk) Social History Tobacco Use Types Packs/Day Years Used Date Smoking Tobacco: Never Assessed Sex Assigned at Date Recorded Not on file documented as of this encounter Last Filed Vital Signs Vital Sign Reading Time Taken Comments Blood Pressure 128/76 06/28/2005 2:37 PM BRUSHER MACHINE Pulse 108 06/28/2005 2:37 PM BRUSHER MACHINE Temperature - - Respiratory Rate - - Oxygen Saturation - - Inhaled Oxygen Concentration - - Weight 61.7 kg (135 lb 15.7 oz) 06/28/2005 2:37 PM BRUSHER MACHINE C: 61.7kg Height - - Body Mass Index - - documented in this encounter Progress Notes Derrick Aleman MD - 06/28/2005 12:01 AM CST Progress Notes signed by Derrick Aleman MD at 06/30/05 8102 Author: Derrick Aleamn MD Service: (none) Author Type: Physician Filed: 12/16/10 0822 Note Time: 06/28/05 0001 Status: Signed Towel Sorter: Derrick Aleman MD (Physician) NAME: MANJIT DOHERTY MR: [id number] ACCT: [id number] VISIT: [id number] DICTATING CLINICIAN: DERRICK ALEMAN MD JOB: [id number] CLINIC PROGRESS NOTE DATE OF VISIT: 06/28/2005 SUBJECTIVE: : 1985. Chief Complaint: I was requested by Dr. Arreola to evaluate this patient for chronic left knee swelling. HISTORY OF PRESENT ILLNESS: An otherwise healthy 19-year-old girl who developed acute left knee swelling in mid 02/2005. That was not preceded by any trauma or accident, diarrhea, or urine infection. It is also not associated with fever, chill, decreased appetite, or any constitutional symptoms. She had a left knee arthrocentesis which showed noninflammatory fluid with white blood cells 935 and lymphocyte predominant. There was also no crystal. Serologies reveal noninflammatory result, negative LISA, negative Lyme serology. She subsequently had a left knee MRI which showed large knee effusion without internal derangement. She has been treated with only nonsteroidal anti-inflammatory agents. She has been taking Advil only 2 tablets twice a day. This has not been much helpful. Left knee arthrocentesis provided only one day of relief, but this recurred very quickly within 1 day. She denied history of fever, chill, weight loss, decreased appetite, skin rash, photosensitivity, pleurisy, shortness of breath, hair loss, cough, hemoptysis, hematemesis, abdominal pain, diarrhea, blood or mucus in the stool, previous tuberculosis exposure, numbness or weakness, dysuria. She was otherwise healthy before and complete review of systems, other than what I mentioned above, was unremarkable. PAST MEDICAL HISTORY: Unremarkable. 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 Does not smoke nor drink. Grandmother has osteoarthritis but negative family history of connective tissue disease. CURRENT MEDICATIONS: Advil 200 to 400 mg as needed. ADR/ALLERGIES: SHE HAS NO KNOWN DRUG REACTION. OBJECTIVE: VS: BP: 128/76. P: 108. Wt: 136 lb. GENERAL APPEARANCE: Young, female who was not in any apparent distress. SKIN: No skin rash, tophi, nodule, edema, psoriasis or anything that suggests palpable purpura, Raynaud, psoriasis, or vasculitis. HEENT: No psoriasis or alopecia in the scalp. Eyes externally clear without conjunctivitis, scleritis or active uveitis. No sinus tenderness, or oral or nasal mucosal ulcers. THYROID: No thyromegaly. LYMPH GLANDS: No palpable superficial lymphadenopathy. HEART: Normal S1, S2. No audible murmurs or gallops. LUNGS: Clear to auscultation on both sides. ABDOMEN: No palpable organ or hepatosplenomegaly, or tender area. Normal bowel sounds. MUSCULOSKELETAL: Marked left knee effusion, slightly warm and limited range of motion to flexion only to 145 degrees with -5 degree extension. Varus/valgus strain, Renetta test and drawer signs are all negative. Otherwise, there is no other significant synovitis or arthritis involving any other joints of both upper or lower extremities. She has left antalgic gait and normal muscle power and tone. 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 PLAN: She has a chronic monoarticular arthritis. Previous evaluation revealed noninflammatory fluid with negative LISA. Will obtain additional test for rheumatoid factor, CBC, and HLA-B27. I will also repeat the blood test for sed rate and C-reactive protein again to see if there is any evidence of systemic inflammation. Chronic noninflammatory arthritis can be related to trauma, benign tumor of the synovial membrane, chronic nonseparative nonpyogenic infection, or early manifestation of inflammatory arthritis. As a result, I think I would like to repeat a knee arthrocentesis again. Consent was verbally obtained from the patient and her father. Left medial knee was prepared in a sterile fashion. Ethyl chloride spray and 1% lidocaine was used as a local anesthetic agent. Total of 8 mL of cloudy, yellowish fluid with some contaminated small amount of blood was obtained. This was sent for cell count and differential cell count, AFB stain and culture, and fungal stain and culture, and crystal analysis. As the fluid looks cloudy today, I think that these have eventually turned into inflammatory condition. 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 If that is the case, I am planning to redo arthrocentesis and inject cortisone. If this recurs after cortisone injection, the patient will be put on either Plaquenil, sulfasalazine or methotrexate. Clinically, this is not pyogenic infection. I also doubt this is related to crystal-induced arthritis. MRI of the left knee has ruled out internal derangement and significant synovial membrane or bone tumor. Lastly, I will have to add that negative Lyme serology has also ruled out Lyme arthritis, which is delayed manifestation of Lyme disease, as the cause of her chronic left knee effusion. If she continues to have the left knee effusion, despite the optimized methotrexate, she will be referred for synovial tissue biopsy. I will see her back again next Sunday in [place]. If the results suggest juvenile inflammatory arthritis, I am planning to do cortisone injection. TT: 60 minutes, with 10 minutes spent for the procedure and 25 minutes spent for counseling and education, and discussion about possibility of the cause of her left knee effusion, and previous laboratory result and x-ray explanation. CC: JARRELL ARREOLA MD TP:[id number] C: 06/29/05 14:53 DOCUMENT: [id number] HER MACHINE documented in this encounter Plan of Treatment Upcoming Encounters Date Type Specialty Care Team Description 05/18/2022 Appointment Rheumatology Erasmo Horn MD [address] [facility] [id number] (Wo rk) documented as of this encounter Visit Diagnoses Not on filedocumented in this encounter Care Teams Quality Cloth Tester Relationship Specialty Start Date End Date Md Valentin MD PCP - General 11/28/10 03/07/15 [place], [place] [id number] documented as of this encounter
--- OUTSIDE RECORDS SUMMARY | 2022-05-17 08:36 | XMS_ITS | Encounter Summary ---
:1985 Author Organization [facility] Address [address] [place] [address] Care Team Providers Name Role Phone Md YOBANI Valentin Primary Care Provider Reason for Visit Reason Comments Other Encounter Details Date Type Department Care Team Description 07/06/2005 Telephone [facility] [address] [facility], Message Other [address] [place], [place] [address] Social History Tobacco Use Types Packs/Day Years Used Date Smoking Tobacco: Never Assessed Sex Assigned at Date Recorded Not on file documented as of this encounter Progress Notes Favio Ortega MA - 07/06/2005 9:58 AM CST Phone Note filed by Favio Ortega MA at 12/12/102207 Author: Favio Ortega MA Service: (none) Author Type: Clinical Unit Coordinator Filed: 12/12/102207 Note Time: 07/06/05957 Status: Signed Physical Therapist Technician: Favio Ortega MA (Clinical Unit Coordinator) Pt's mother calling (Luisa)- she states that Liana was here this last Sunday and had a cortisone injection in her knee. She states that on Sunday she came home from school and had a look of blotches on face. She would like to know if this could be related. Temp was 99.2. Please advise. Luisa can be reached at [phone]. Created on 06Jul2005 9:58am by FAVIO ORTEGA On 06Jul2005 12:05pm DERRICK SUMMERS wrote: Called to talk to Luisa and to let her know that it is not related. Acknowledged by DERRICK SUMMERS on 12:05pm GER OPERATIONS documented in this encounter Plan of Treatment Upcoming Encounters Date Type Specialty Care Team Description 05/18/2022 Appointment Rheumatology Erasmo Horn MD [address] [facility] [place] [id number] (Wo rk) documented as of this encounter Visit Diagnoses Not on filedocumented in this encounter Care Teams Lead Sustainability Specialist Relationship Specialty Start Date End Date Md Valentin MD PCP - General 11/28/10 03/07/15 [place], [place] [phone] documented as of this encounter
--- OUTSIDE RECORDS SUMMARY | 2022-05-17 08:36 | XMS_ITS | Encounter Summary ---
:1985 Author Organization [employer] Address [address] [place] [address] Care Team Providers Name Role Phone Md YOBANI Valentin Primary Care Provider Encounter Details Date Type Department Care Team Description 10/28/2003 PN Conversion Only [place] [address] [place] [address] [address] [facility], [facility] Social History Tobacco Use Types Packs/Day Years Used Date Smoking Tobacco: Never Assessed Sex Assigned at Date Recorded Not on file documented as of this encounter Plan of Treatment Upcoming Encounters Date Type Specialty Care Team Description 05/18/2022 Appointment Rheumatology Erasmo Horn MD [address] [facility] [address] [address] (Wo rk) documented as of this encounter Procedures Procedure Name Priority Date/Time Associated Diagnosis Comme nts STREP GROUP A Routine 10/28/2003 5:28 PM Results for this ANTIGEN TEST INTERNET MARKETING CONSULTANT procedure are i n the results section. BETA STREP FOLLOWUP Routine 10/28/2003 5:28 PM Re sults for this INTERNET MARKETING CONSULTANT procedure are i n the results section. COMPLETE BLOOD Routine 10/28/2003 4:01 PM Results for this COUNT-W/DIFF INTERNET MARKETING CONSULTANT procedure are i n the results section. AST Routine 10/28/2003 4:01 PM Results f or this INTERNET MARKETING CONSULTANT procedure are i n the results section. ESR Routine 10/28/2003 4:01 PM Results f or this INTERNET MARKETING CONSULTANT procedure are i n the results section. documented in this encounter Results Strep Group A Antigen Test (10/28/2003 5:28 PM INTERNET MARKETING CONSULTANT) Analysis Performed At Patho logist Time Signature Strep Group A Negative Negative HP CONVERSION Antigen Test Comment: Culture to follow. Specimen (Source) Anatomical Collection Method Collection Time Re ceived Time Location / / Volume Laterality 10/28/2003 5:28 PM INTERNET MARKETING CONSULTANT Barry Slaughter MD LAB_1 Performing Organization Address City/[facility] Code Phon e Number HP CONVERSION Beta Strep Followup (10/28/2003 5:28 PM INTERNET MARKETING CONSULTANT) P athologist Signature Strep Screen SEE TEXT HP CONVERSION Comment: Patient: MANJIT DOHERTY Rapid Strep Follow up Culture @ ? Collected: ??[id number] ??[id number] Source: Throat ?Processed: ??[id number] ??[id number] ? 1V Final Report ------ ?[id number] ??[id number] No beta hemolytic Strep group A isolated . @ = Rapid F/U Cult Performed at ??[address] [place] ?[address] Specimen (Source) Anatomical Collection Method Collection Time Re ceived Time Location / / Volume Laterality 10/28/2003 5:28 PM INTERNET MARKETING CONSULTANT Barry Slaughter MD LAB_1 Performing Organization Address City/State/ZIP Code Phon e Number HP CONVERSION Complete Blood Count-W/Diff (10/28/2003 4:01 PM INTERNET MARKETING CONSULTANT) [facility] Method Time Signature White Blood Cell 8.2 4.5 - 13.0 HP CONVERSIO N Count K/cmm Red Blood Cell 4.33 4.10 - HP CONVERSION Count 5.10 m/cmm Hemoglobin 12.8 12.0 - HP CONVERSION 16.0 gm/dL Hematocrit 39.2 36.0 - HP CONVERSION 46.0 % Mean Corpuscular 90.6 78.0 - HP CONVERSION Volume 100.0 fl Mean Corpuscular 29.5 24.0 - HP CONVERSION Hemoglobin 34.0 pg Mean Corpuscular 32.5 32.0 - HP CONVERSION Hemoglobin Conc 36.5 gm/dL Milmay RDW 11.9 11.0 - HP CONVERSION 15.0 % Platelet Count 314 150 - 450 HP CONVERSION k/cmm Differential Auto-Dif No normal HP CONVERSION Verify range Neutrophils 5.5 K/cmm HP CONVERSION Absolute Count Neutrophil 66.9 % HP CONVERSION Lymphocyte % 25.6 % HP CONVERSION Monocyte 5.3 % HP CONVERSION Eosinophil 2.2 % HP CONVERSION Basophil % 0.0 % HP CONVERSION Specimen (Source) Anatomical Collection Method Collection Time Re ceived Time Location / / Volume Laterality 10/28/2003 4:01 PM INTERNET MARKETING CONSULTANT Barry Slaughter MD LAB_1 Performing Organization Address City/[facility] Code Phon e Number HP CONVERSION AST (10/28/2003 4:01 PM INTERNET MARKETING CONSULTANT) [facility] Method Time Signature Aspartate 38 0 - 45 HP CONVERSION Aminotransferase U/L Specimen (Source) Anatomical Collection Method Collection Time Re ceived Time Location / / Volume Laterality 10/28/2003 4:01 PM INTERNET MARKETING CONSULTANT Barry Slaughter MD LAB_1 Performing Organization Address City/[facility]/ZIP Code Phon e Number HP CONVERSION ESR (10/28/2003 4:01 PM INTERNET MARKETING CONSULTANT) [facility] Method Time Signature Sedimentation Rate 14 0 - 20 HP CONVERSI ON mm/Hr Specimen (Source) Anatomical Collection Method Collection Time Re ceived Time Location / / Volume Laterality 10/28/2003 4:01 PM INTERNET MARKETING CONSULTANT Barry Slaughter MD LAB_1 Performing Organization Address City/State/ZIP Code Phon e Number HP CONVERSION documented in this encounter Visit Diagnoses Not on filedocumented in this encounter Care Teams Russian Rubber Relationship Specialty Start Date End Date Md Valentin MD PCP - General 11/28/10 03/07/15 [place] [address] documented as of this encounter
--- OUTSIDE RECORDS SUMMARY | 2022-05-17 08:36 | XMS_ITS | Encounter Summary ---
:1985 Author Organization [facility] Address [address] [place] [address] Care Team Providers Name Role Phone Md YOBANI Valentin Primary Care Provider Encounter Details Date Type Department Care Team Description 10/28/2003 PN Conversion Only [facility] [place] [address] [facility] [place] [address] [address] [facility] [phone] [place] [address] Social History Tobacco Use Types Packs/Day Years Used Date Smoking Tobacco: Never Assessed Sex Assigned at Date Recorded Not on file documented as of this encounter Progress Notes Jarrell George MD - 06/22/2005 12:01 AM CDT Phone Note signed by Jarrell George MD at 06/23/05 1310 Author: Jarrell George MD Service: (none) Author Type: Physician Filed: 10/28/03 0000 Note Time: 06/22/05 0001 Status: Signed Cupola Liner Helper: Jarrell George MD (Physician) NAME: LIANA SCHWARZ MR: [id number] ACCT: VISIT: DICTATING CLINICIAN: JARRELL GEORGE MD JOB: [id number] CLINIC PHONE CALL DATE OF PHONE CALL: 06/22/2005. I had seen Liana previously in the clinic for persistent nontraumatic left knee effusion. The workup so far has not shown a specific source of her left knee effusion. I called her with the results of her left knee aspiration. This shows no specific crystal identified. There is no obvious infection in the knee. On the culture, there is a notice of a coag-negative staph present, but I believe this is most likely a contaminant. I spoke with Liana on the phone. I think the next step should be for her to see our rheumatology department for a workup for a persistent nontraumatic left knee effusion. At this time, I do not have any good explanation for her persistent effusion, and would appreciate the rheumatology input. [facility]:[id number] C: 06/22/05 15:03 DOCUMENT: [id number] Phone Note, Clinician - 10/28/2003 12:01 AM CST Phone Note filed by Clinician Phone Note at 12/13/10 1323 Author: Clinician Phone Note Service: (none) Author Type: Resource Filed: 12/13/10 1321 Note Time: 10/28/03 0001 Status: Signed Cupola Liner Helper: Clinician Phone Note (Resource) TO: BARRY SLAUGHTER FROM: MAEVE ROBB LPN [phone] * PROVIDER MESSAGE: AMANDAI *NO * 10/28/03 01:42PM * INPUT NECESSARY * MESSAGE: Pt's father call; said he * HOME PHONE:[phone] * had daughter in to [facility] on * CONTACT PHONE:[phone] * Sunday, with severe stomach pain. Father is anxious and sounds angry and is demandi ng an appt right away. Did find an appt for this afternoon. Father did thank nurse. Pt's father said she was having stomach pain. US were done and could not find anything. SUBJECTIVE: ALLERGIES/SENSITIVITIES... 09/11/01 CURRENT MEDICATIONS... 09/11/01 PERTINENT PAST HISTORY... 09/11/01 WEIGHT: ASSESSMENT: SEVERE STOMACH PAINS PLAN: DISPOSITION: NO DISPOSITION GIVEN CALL BY MAEVE ROBB LPN 10/28/2003 01:39PM [phone] ADDENDUM: Barry Slaughter MD - 10/28/2003 12:01 AM CST Progress Notes signed by Barry Slaughter MD at 11/10/03 1058 Author: Barry Slaughter Md, MD Service: (none) Author Type: Physician Filed: 12/15/10 1923 Note Time: 10/28/03 0001 Status: Signed Cupola Liner Helper: Barry Slaughter Md, MD (Physician) NAME: LIANA DOHERTY MR: [id number] ACCT: [id number] VISIT: [id number] DICTATING CLINICIAN: BARRY SLAUGHTER MD JOB: [id number] CLINIC PROGRESS NOTE DATE OF VISIT: 10/28/2003 ASSESSMENT: Abdominal pain. PLAN: Obtained a CBC which was normal. Sed rate is pending. Abdominal x-ray was normal except for some increased stool on the right side. After patient came back from her lab work and x-ray, her abdominal pain was higher on the right side, little bit above the level of the umbilicus, so was in the lower right upper quadrant. Again, she did not have any rebound or referred tenderness. She was able to hop on each foot with no discomfort. There was no guarding. Patient originally came in with the father after they did the blood tests and x-ray. He had to leave, and Liana's mother was there. Went over the findings with her, the fact that the blood work was normal, and the x-ray. At this point, I would observe Liana at home. If she has increased symptoms or has any discomfort with hopping or increased pain, I would want to see her back. The fact that discomfort is moving around would be consistent with some large intestine discomfort. She has had some cramping sensations with the pain, and it is fairly lateral. We will see back if any change. Did obtain a rapid-screen strep sample of the throat, which was negative. Regular culture is pending. SUBJECTIVE: Liana comes in because she had developed abdominal pain on the evening of . She continued having the pain the next day and was seen at the emergency room that night. She had CT scan of the abdomen done, with and without contrast, looking for signs of appendicitis. They had trouble identifying the appendix, but did not see any inflammatory changes in the right lower quadrant. There were no kidney stones, hydronephrosis. Gallbladder was normal on ultrasound, as were the kidneys and spleen. That was probably when the patient had her worst pain. She still continued having some pain on Sunday, which was yesterday, and again today. She felt a little nauseated on early Sunday morning while she was still at the emergency room. Has not had any vomiting. Stools have been normal, although she does not remember how many she has had or when. She has not had any diarrhea. Periods have been normal. MEDICATIONS: She has had some codeine for discomfort. Last dose was earlier today. ADR/ALLERGIES: NO KNOWN ALLERGIES TO MEDICINE. OBJECTIVE: VS: T: 98.1 degrees. P: 100. R: 30. Head is normal. EARS: Right and left are both clear. No redness. No fluid. Pharynx is slightly red. No exudate. Neck is supple. No large, palpable, cervical lymph nodes. Lungs are clear. No wheezing, crackles, rhonchi. Abdomen is soft. Patient does not have any guarding. She does have discomfort in the right lower quadrant. No rebound or referred tenderness. It is uncomfortable to palpate in the right lower quadrant. : Normal. EXTREMITIES: Normal range of motion. No redness or swelling of the joints. SKIN: No rashes. Color is good. Gait is normal. Patient was able to hop on each foot with no discomfort. HUMAN RESOURCES RECRUITER:[id number] C: 10/28/03 23:54 DOCUMENT: [id number] OR MAJOR GIFTS OFFICER Barry Slaughter MD - 12/29/2002 12:01 AM CDT Progress Notes signed by Barry Slaughter MD at 05/11/04 5762 Author: Barry Slaughter Md, MD Service: (none) Author Type: Physician Filed: 12/15/10 1415 Note Time: 12/29/022021 Status: Signed Cupola Liner Helper: Barry Slaughter Md, MD (Physician) NAME: LIANA DOHERTY MR: [id number] ACCT: [id number] VISIT: [id number] DICTATING CLINICIAN: BARRY SLAUGHTER MD JOB: [id number] CLINIC PROGRESS NOTE DATE OF VISIT: 12/29/2002 SUBJECTIVE: Liana comes in because she has sutures in her right little finger. She cut the finger on a saw, done 10 days ago. Had sutures put in. It seems to be healing very nicely now. She has also had a sore throat over about the last five to six days. Her sister was diagnosed with strep about a week ago. Her sister has had strep off and on the past couple of months and possibly the sister is the carrier. MEDICATIONS: Liana is not on any medication. ADR/ALLERGIES: NO KNOWN ALLERGIES TO MEDICINES. OBJECTIVE: VS: T: 97.8 degrees. Wt: 126 lb. PHARYNX: Slightly pink, not reddened. No exudate. NECK: Supple. No palpable cervical lymph nodes. ABDOMEN: Soft, nontender, no guarding, no masses, no organomegaly. SKIN: Extremities the patient has a laceration on the right fifth finger which is healing nicely. No signs of infection. ASSESSMENT: Laceration, right little finger. Pharyngitis. PLAN: Sutures were removed from the laceration. There was two sutures. It looked like there had been maybe a third one that had already come loose. Obtained a throat culture. Rapid strep screen was negative. If culture comes back positive we will treat with penicillin x 10 days. FINAL IMPRESSION Laceration, right little finger. Pharyngitis. TT: CT: HUMAN RESOURCES RECRUITER:[id number] C: 12/30/02 10:04 DOCUMENT: [id number] Elizabeth Lentz MD - 12/19/2002 12:01 AM CDT Progress Notes signed by Elizabeth Lentz MD at 01/30/03 1239 Author: Elizabeth Lentz MD Service: (none) Author Type: Physician Filed: 12/15/10 1408 Note Time: 12/19/02 0001 Status: Signed Cupola Liner Helper: Elizabeth Lentz MD (Physician) NAME: LIANA DOHERTY MR: [id number] ACCT: [id number] VISIT: [id number] DICTATING CLINICIAN: ELIZABETH LENTZ MD JOB: [id number] CLINIC PROGRESS NOTE DATE OF VISIT: 12/19/2002 SUBJECTIVE: Chief Complaint: A 16-year-old patient who cut her right fifth finger on a table saw today in a carpentry class. The patient's tetanus immunization was in 1999. ADR/ALLERGIES: SHE HAS NO KNOWN DRUG ALLERGIES. Not on any medication. PAST MEDICAL HISTORY: Negative. OBJECTIVE: VS: BP: 121/72. T: 98. P: 81. R: 16. On examination of the right fifth finger, there is a small, circular laceration at the tip of the right fifth finger. This was thoroughly cleansed with Shur-Clens and sterile saline. The skin around the laceration was infiltrated with 1% Lidocaine, which contained bicarbonate. Four interrupted sutures were placed, good approximation was obtained. ASSESSMENT: Finger laceration. PLAN: Tube gauze dressing for 24 hours. Wound care instructions given. Suture removal in 10 days. FINAL IMPRESSION: Finger laceration. TT: CT: STR:[id number] C: 12/20/02 10:21 DOCUMENT: [id number] Bora Cuello MD - 12/12/2001 12:01 AM CDT Progress Notes signed by at 10/18/022021 Author: Bora Cuello MD Service: (none) Author Type: Physician Filed: 12/15/10 0557 Note Time: 12/12/01 0001 Status: Signed Cupola Liner Helper: Bora Cuello MD (Physician) IMPRESSION: Viral illness. SUBJECTIVE: This is a 15-year-old in with father, sore throat, cough, fever, nausea. OBJECTIVE: VS/GEN: BP: 116/70. T: 101.9. P: 130. R: 20. HEENT: Patient had a pretty normal exam except for mild tenderness on the sinuses but nothing significant. Tonsils were 1-2+ without exudate. Nose negative, ears, eyes. NECK: Supple. Some anterior cervical nodes. LUNGS: Clear. CV: Normal sinus rhythm. ABD: Soft and nontender. We did a white count on her and differential and UA, they were normal. ASSESSMENT: Viral illness. PLAN: Symptomatic care. TT: CT: [id number]:[id number] C: DOCUMENT: [id number] Yazmin Ashley MD - 09/20/2001 12:01 AM CST Progress Notes signed by at 10/18/02 0001 Author: Yazmin Ashley MD Service: (none) Author Type: Physician Filed: 12/15/10 0400 Note Time: 09/20/01 0001 Status: Signed Cupola Liner Helper: Yazmin Ashley MD (Physician) IMPRESSION: Right middle finger injury. Small fracture versus contusion. SUBJECTIVE: Liana is a 15-year-old here for a followup of a possible finger fracture. September 10 she slammed her finger in the car door. Had lots of swelling and pain. Was seen in urgent care on September 12. X-ray showed a minor cortical irregularity along the radial base portion of the middle phalanx. This was thought to be a tiny nondisplaced fracture or residual growth plate visualization. She was put in a splint. The splint has been on this whole entire time. She is taking it off for showers but has not tried to move her finger at all. The finger injured was her right middle finger and she is right handed. She has been writing in class. She still has some pain when the finger is touched. The swelling has gone down quite a bit and there is still some residual bruising. She is on no medications. ADR/ALLERGIES: HAS NO KNOWN DRUG ALLERGIES. OBJECTIVE: EXTREMITIES: She has minor resolving ecchymosis along the dorsum of the right middle finger. She has full range of motion of the finger at all joints but is somewhat limited due to the pain. Sensation is intact to light touch. Cap refill is less than two seconds. She still has minor tenderness to palpation along the middle phalanx. ASSESSMENT: Right middle finger injury. Small fracture versus contusion. PLAN: Urged her to take her finger out of the splint and try to move the finger to get some of its strength back. Still wear the splint in areas where she thinks the finger would become injured again such as school, etc., but when she is at home she should take her finger out of the splint. Did offer another x-ray today to see if there was callous formation but dad declined. Should follow up back in clinic if there is any new swelling or any persistence of pain. TT: CT: [id number]:[id number] C: DOCUMENT: [id number] Conversion, [facility] - 09/12/2001 12:01 AM CST Progress Notes signed by at 10/18/02 0001 Author: [facility] Conversion Service: (none) Author Type: (none) Filed: 12/15/10 0349 Note Time: 09/12/01 0001 Status: Signed Cupola Liner Helper: Ciro Conversion IMPRESSION: Salter-II fracture of right third finger. SUBJECTIVE: A 15-year-old female, who is here with her legal guardian while her parents are away in [place]. States she slammed her right third finger in the car door on Sunday. Since then she has been complaining of pain in the middle phalanx. She denies any numbness and tingling, any prior history of injury. She denies any hand pain or radiation of pain. She otherwise is healthy. All other rest of review of systems is negative. PAST MEDICAL HISTORY: None. FAMILY HISTORY: None. SOCIAL HISTORY: She is in 7th grade and as at home with her family. MEDICATIONS: None. ADR/ALLERGIES: NONE. OBJECTIVE: VS/Gen: T: 97.7 P: 88 R: 14 Well-developed, well-nourished female in no acute distress, alert and cooperative. In general, the patient looks well. She is alert and cooperative. EXTREMITIES: The patient's right hand skin is warm and dry. There is some mild ecchymosis noted at the right third middle phalanx, which is tender to palpation. The patient has good range of motion, able to extend and flex without much difficulty. She is able to make a fist. She is able to abduct and adduct without difficulty. All tendonal strength is intact. Capillary refill intact and sensation to sharp and dull is intact. X-rays ordered and reviewed by myself show a nondisplaced Salter- II fracture of the middle phalanx. This was also concurred with Dr. Barnett, the radiologist. ASSESSMENT: Salter-II fracture of right third finger. PLAN: The patient is put into an Alumafoam splint in position of function. She is to do ibuprofen as directed. Wear the splint for the next week and then should be rechecked by her primary. She was also given a note that she cannot play her clarinet for the next week. TT: CT: [id number]:[id number] C: DOCUMENT: [id number] SCHEDULED RESOURCE: VARSHA SAVAGE / ABIEL Conversion, [facility] - 09/11/2001 12:01 AM CST Phone Note signed by at 09/11/011999 Author: Ciro Conversion Service: (none) Author Type: (none) Filed: 12/15/10 0347 Note Time: 09/11/012021 Status: Signed Cupola Liner Helper: Ciro Conversion IMPRESSION: Finger trauma-(child)-triage guideline - TREATING PROVIDER: BARRY ROYAL - REFERRED PATIENT TO URGENT CARE AT * HOME PHONE: [phone] * [facility] SUBJECTIVE: PATIENT COMPLAINS OF... -Significant symptoms continue after 2-3 days of home management. logistics specialist calling from the Car and on her ways to [facility]. Says child slammed her finger in the Car door yesterday. The middle finger has a laceration on the backside of finger about 1/4 inch in length and denies any depth. The finger near the knucle is swollen on one side. Denies any difigurement or abdnormal appearance. Having some difficulty with movement of the finger. More painful today.; ALLERGIES/SENSITIVITIES... 09/11/01 CURRENT MEDICATIONS... 09/11/01 PERTINENT PAST HISTORY... 09/11/01 ASSESSMENT: Finger trauma-(child)-triage guideline DISPOSITION: SEMI-URGENT OMITTED ASKING ABOUT ; OMITTED ASKING ABOUT NURSING; PLAN: RECOMMENDED THE FOLLOWING... Referenced guideline Finger trauma-(child)-triage guideline. Schedule appointment with provider within 8 hours logistics specialist on her way to [facility]. Advised that closes at 8pm and requesting patient no later than 7:30pm. -Remove rings, bracelets or wrist watch ELAINE -Cover area with clean dressing until seen -Soak finger in ice water for 1 hour, removing every 20 minutes for 5 minutes to avoid frostbite. -Laith tape to next finger to stabilize until seen -Give acetaminophen -Elevate finger above the level of the heart if able INFORMED PATIENT TO CALLBACK IF... Reasons to call back reviewed- caller verbalizes understanding of the need to call back for the following reasons: -Symptoms persist after 2-3 days of home management -Symptoms of infection -Any other questions or concerns Call taken by IFTIKHAR SMILEY RN [phone] 09/11/2001 07:49 PM ADDENDUM: documented in this encounter Plan of Treatment Upcoming Encounters Date Type Specialty Care Team Description 05/18/2022 Appointment Rheumatology Erasmo Horn MD [address] [facility] [place] [address] (Wo rk) documented as of this encounter Procedures Procedure Name Priority Date/Time Associated Comments Diagnosis XR ABD FLAT AND Routine 10/28/2003 4:17 PM Result s for this UPRIGHT SENIOR MAJOR GIFTS OFFICER procedure are i n the results section. DIFFERENTIAL MANUAL Routine 12/12/2001 6:50 PM Re sults for this CDT procedure are i n the results section. URINALYSIS COMPLETE Routine 12/12/2001 6:50 PM Re sults for this HOLD CULTURE CDT procedure are i n the results section. WBC, BLOOD Routine 12/12/2001 6:50 PM Results f or this CDT procedure are i n the results section. XR FINGER MULTIPLE Routine 09/12/2001 9:24 AM Res ults for this SENIOR MAJOR GIFTS OFFICER procedure are i n the results section. documented in this encounter Results XR Abd Flat And Upright (10/28/2003 4:17 PM SENIOR MAJOR GIFTS OFFICER) Anatomical Region Laterality Modality Abdomen Other Specimen (Source) Anatomical Location Collection Method / Collectio n Time Received Time / Laterality Volume Narrative 10/28/2003 4:17 PM SENIOR MAJOR GIFTS OFFICER HISTORY: ??Abdominal pain since 10/25/03. No comparison. ??Opaque material is seen within the colon predominantly suggesting prior contrast ingestion or some other relatively high-density material. ??Stoo l is scattered throughout the colon and there is no change of bowel ob struction. ??No abnormal masses or calcifications seen. ??Lung ba ses clear and no free air. [id number] Dictating DUSTIN AMES RADIOLOGIST Procedure Note Dustin Barnett - 11/02/2016Formatting o f this note might be different from the original. HISTORY: Abdominal pain since 10/25/03. No comparison. Opaque material is seen w ithin the colon predominantly suggesting prior contrast ingestion or some other relatively high-density material. Stool is scattered throughout the colon and there is no change of bowel ob struction. No abnormal masses or calcifications seen. Lung base s clear and no free air. [id number] Dictating DUSTIN AMES RADIOLOGIST Barry Slaughter MD RAD GD (ABNORMAL) WBC, Blood (12/12/2001 6:50 PM CDT) Analysis Performed At Patho logist Time Signature White Blood 4.3 (LL) 4.5 - 13.5 HP CONVERSION Cell Count K/cmm Specimen (Source) Anatomical Collection Method Collection Time Re ceived Time Location / / Volume Laterality 12/12/2001 6:50 PM CDT Bora Cuello MD LAB_1 Performing Organization Address City/State/ZIP Code Phon e Number HP CONVERSION (ABNORMAL) Differential Manual (12/12/2001 6:50 PM CDT) Patholo gist Method Time Signature Neutrophils 62 (HH) 33 - 61 % HP CONVERSION Bands 1 (LL) 5 - 11 % HP CONVERSION Lymphocytes 25 (LL) 28 - 48 % HP CONVERSION Monocyte 12 3 - 12 % HP CONVERSION Platelet Normal No normal HP CONVERSION Estimate range RBC Morphology Normal No normal HP CONVERSION range Comment: RBC's appear normochromic and n ormocytic. Specimen (Source) Anatomical Collection Method Collection Time Re ceived Time Location / / Volume Laterality 12/12/2001 6:50 PM CDT Bora Cuello MD LAB_1 Performing Organization Address [facility] Phon e Number HP CONVERSION (ABNORMAL) Urinalysis Complete Hold Culture (12/12/2001 6:50 PM CDT) [facility] Method Time Signature U Specific 1.010 1.005 - 25 HP CONVERSION Lindsay pH Urine 5.5 4.5 - 7.5 HP CONVERSION Protein Urine Negative Neg-Trac HP CONVERSION Glucose, Negative Neg-Trac HP CONVERSION Qualitative U Ketones Negative Negative HP CONVERSION U BILI Negative Negative HP CONVERSION Blood Urine Negative Negative HP CONVERSION Nitrite Urine Negative Negative HP CONVERSION Leukocyte Negative Negative HP CONVERSION Esterase Urine Urobilinogen Negative 0.2 - 1.0 HP CONVERSION Urine White Blood 0-2/HPF 0 - 3 HP CONVERSION Cells Urine Red Blood Cells Negative 0 - 2 HP CONVERSION Urine Epithelial Cells Few Few /HPF HP CONVERSION Bacteria Urine Few (A) None HP CONVERSION Hold For Yes No normal HP CONVERSION Culture? range Specimen (Source) Anatomical Collection Method Collection Time Re ceived Time Location / / Volume Laterality 12/12/2001 6:50 PM CDT Bora Cuello MD LAB_1 Performing Organization Address [facility] Phon e Number HP CONVERSION XR Finger Multiple (09/12/2001 9:24 AM SENIOR MAJOR GIFTS OFFICER) Anatomical Region Laterality Modality Upper Extremity, Hand Other Specimen (Source) Anatomical Location Collection Method / Collectio n Time Received Time / Laterality Volume Narrative 09/12/2001 9:24 AM SENIOR MAJOR GIFTS OFFICER CLINICAL DATA: ?RIGHT 3RD FINGER PAIN. ?729.5 FINDINGS: ?THERE IS A MINOR CORTICAL IRREGULA RITY ALONG THE RADIAL BASE ?PORTION OF THE MIDDLE PHALANX S EEN ON THE OBLIQUE VIEW. ?A TINY NONDISPLACED FRACTURE AT TH IS SITE CANNOT BE EXCLUDED ?VS. RESIDUAL GROWTH PLATE VISUALIZ ATION. ??THIS CAN BE ?CORRELATED CLINICALLY WELL W ITH FOLLOWUP IN ONE TO TWO ?WEEKS IF CLINICALLY NEEDED. ?/TSS TECH-ID : ? YMM TRANS-ID: ? EDR Procedure Note Dustin Barnett - 11/02/2016Formatting o f this note might be different from the original. CLINICAL DATA: RIGHT 3RD FINGER PAIN. 729.5 FINDINGS: THERE IS A MINOR CORTICAL IRREGULARITY ALONG THE RADIAL BASE PORTION OF THE MIDDLE PHALANX SEEN O N THE OBLIQUE VIEW. A TINY NONDISPLACED FRACTURE AT THIS SI TE CANNOT BE EXCLUDED VS. RESIDUAL GROWTH PLATE VISUALIZATION . THIS CAN BE CORRELATED CLINICALLY WELL WITH F OLLOWUP IN ONE TO TWO WEEKS IF CLINICALLY NEEDED. /TSS TECH-ID : YMM TRANS-ID: EDR Imr Conversion RAD GD documented in this encounter Visit Diagnoses Not on filedocumented in this encounter Care Teams Customer Account Executive Relationship Specialty Start Date End Date Md Valentin MD PCP - General 11/28/10 03/07/15 [place] [address] documented as of this encounter
--- OUTSIDE RECORDS SUMMARY | 2022-05-17 08:36 | XMS_ITS | Encounter Summary ---
:1985 Author Organization [facility] Address [address] [place] [address] Care Team Providers Name Role Phone Md YOBANI Valentin Primary Care Provider Encounter Details Date Type Department Care Team Description 06/05/2005 PN Conversion Only [facility] Amos George, [address] [place] [address] [address] [place] [address] (Wo rk) Social History Tobacco Use Types Packs/Day Years Used Date Smoking Tobacco: Never Assessed Sex Assigned at Date Recorded Not on file documented as of this encounter Plan of Treatment Upcoming Encounters Date Type Specialty Care Team Description 05/18/2022 Appointment Rheumatology Erasmo Horn MD [address] [facility] N [address] (Wo rk) documented as of this encounter Procedures Procedure Name Priority Date/Time Associated Diagnosis Comme nts LYME DISEASE SCREEN Routine 06/05/2005 2:39 PM Re sults for this (IN-HOUSE) CDT procedure are i n the results section. COMPLETE BLOOD Routine 06/05/2005 2:39 PM Results for this COUNT-W/DIFF CDT procedure are i n the results section. C-REACTIVE PROTEIN Routine 06/05/2005 2:39 PM Res ults for this CDT procedure are i n the results section. LISA SCREEN Routine 06/05/2005 2:39 PM Results f or this CDT procedure are i n the results section. ESR Routine 06/05/2005 2:39 PM Results f or this CDT procedure are i n the results section. documented in this encounter Results Complete Blood Count-W/Diff (06/05/2005 2:39 PM CDT) [facility] Method Time Signature White Blood Cell 5.9 3.8 - 11.0 HP CONVERSIO N Count K/cmm Red Blood Cell 4.51 4.10 - HP CONVERSION Count 5.10 m/cmm Hemoglobin 13.3 12.0 - HP CONVERSION 16.0 gm/dL Hematocrit 39.3 36.0 - HP CONVERSION 46.0 % Mean Corpuscular 87.3 78.0 - HP CONVERSION Volume 100.0 fl Mean Corpuscular 29.5 24.0 - HP CONVERSION Hemoglobin 34.0 pg Mean Corpuscular 33.8 32.0 - HP CONVERSION Hemoglobin Conc 36.5 gm/dL [place] RDW 12.4 11.0 - HP CONVERSION 15.0 % Platelet Count 293 140 - 450 HP CONVERSION k/cmm Differential Auto-Dif No normal HP CONVERSION Verify range Neutrophils 3.5 K/cmm HP CONVERSION Absolute Count Neutrophil 58.4 % HP CONVERSION Lymphocyte % 31.7 % HP CONVERSION Monocyte 7.3 % HP CONVERSION Eosinophil 2.1 % HP CONVERSION Basophil % 0.5 % HP CONVERSION Specimen (Source) Anatomical Collection Method Collection Time Re ceived Time Location / / Volume Laterality 06/05/2005 2:39 PM CDT Amos George MD LAB_1 Performing Organization Address City/State/ZIP Code Phon e Number HP CONVERSION C-Reactive Protein (06/05/2005 2:39 PM CDT) athologist Signature CRP <0.2 0.0 - 0.9 HP CONVERSION mg/dL Specimen (Source) Anatomical Collection Method Collection Time Re ceived Time Location / / Volume Laterality 06/05/2005 2:39 PM CDT Amos George MD LAB_1 Performing Organization Address City/State/ZIP Code Phon e Number HP CONVERSION ESR (06/05/2005 2:39 PM CDT) [facility] Method Time Signature Sedimentation Rate 6 0 - 20 HP CONVERSI ON mm/Hr Specimen (Source) Anatomical Collection Method Collection Time Re ceived Time Location / / Volume Laterality 06/05/2005 2:39 PM CDT Amos George MD LAB_1 Performing Organization Address City/State/ZIP Code Phon e Number HP CONVERSION LISA Screen (06/05/2005 2:39 PM CDT) Analysis Performed At Patho logist Time Signature Anti-Nuclear Negative Negative HP CONVERSION Ab Specimen (Source) Anatomical Collection Method Collection Time Re ceived Time Location / / Volume Laterality 06/05/2005 2:39 PM CDT Amos George MD LAB_1 Performing Organization Address City/State/ZIP Code Phon e Number HP CONVERSION Lyme Disease Screen (IN-House) (06/05/2005 2:39 PM CDT) P athologist Signature Lyme Screen Negative No normal HP CONVERSION range Comment: A negative Lyme result does not rule out Lyme disease. ??If a current infection is suspected, please submit a second specimen in 4-6 weeks. Positive or equivocal specimens are auto matically sent to [facility] for Western Blot testing. Specimen (Source) Anatomical Collection Method Collection Time Re ceived Time Location / / Volume Laterality 06/05/2005 2:39 PM CDT Amos George MD LAB_1 Performing Organization Address City/[facility] Phon e Number HP CONVERSION documented in this encounter Visit Diagnoses Not on filedocumented in this encounter Care Teams District Extension Service Agent Relationship Specialty Start Date End Date Md Valentin MD PCP - General 11/28/10 03/07/15 [place] [address] documented as of this encounter
--- OUTSIDE RECORDS SUMMARY | 2022-05-17 08:36 | XMS_ITS | Encounter Summary ---
:1985 Author Organization [facility] Address [address] [facility] [place] [address] Care Team Providers Name Role Phone Md YOBANI Valentin Primary Care Provider Encounter Details Date Type Department Care Team Description 06/05/2005 Office Visit [facility] [address] Brianna George MD [facility] [address] [place] [address] [place] [address] [phone] Social History Tobacco Use Types Packs/Day Years Used Date Smoking Tobacco: Never Assessed Sex Assigned at Date Recorded Not on file documented as of this encounter Progress Notes Amos George MD - 06/05/2005 12:01 AM CDT Progress Notes signed by Amos George MD at 06/07/05 0802 Author: Amos George MD Service: (none) Author Type: Physician Filed: 12/16/10 0753 Note Time: 06/05/05 0001 Status: Signed Mangle Roll Operator: Amos George MD (Physician) NAME: MANJIT DOHERTY MR: [id number] ACCT: [id number] VISIT: [id number] DICTATING CLINICIAN: AMOS GEORGE MD JOB: [id number] CLINIC PROGRESS NOTE DATE OF VISIT: 06/05/2005 SUBJECTIVE: Chief Complaint: Left knee pain. HISTORY OF PRESENT ILLNESS: Manjit is a ndowhrzpt-ycpi-nfp, right-handed female. She notes three months of left knee pain and swelling. She notes no specific injury. She does have pain at night. She has pain with walking and prolonged standing, but also pain without weightbearing. She has tried ice and Advil without much relief. Her symptoms continue to worsen, including increased knee swelling and pain. She has not tried any medications other than the Advil. ADR/ALLERGIES: NO ALLERGIES. PREVIOUS SURGERIES: None. MEDICAL CONDITIONS: No previous medical conditions. SOCIAL HISTORY: She is right-hand dominant and is a full-time student, a senior in high school, but also works 20 hours a week at her family's [employer]. She enjoys [employer]. Lives with her family. She does not use drugs, does not smoke, she drinks socially, occasionally exercises, and always wears her seat belt. FAMILY HISTORY: Negative for heart disease or cancer. Her dad was recently diagnosed with type II diabetes. She denies a specific family history of rheumatoid arthritis and no previous history of cancer in the family. REVIEW OF SYSTEMS: Negative for exposure to deer ticks, [place] [facility] [place]. There is no history of previous rash, no changes in weight loss, no fever, no chills. OBJECTIVE: This is a healthy-appearing female. She is alert and oriented times three and in no distress. Exam of her knee shows an obvious moderate to large effusion in her left knee. There is no skin rash noted. She has normal sensation in the lower extremity. Range of motion is from 0-130 degrees, is stable to anterior, posterior, and varus/valgus stress testing. There is no erythema. She has 5/5 strength in knee flexion and extension, dorsiflexion and plantar flexion of the ankle. She has normal sensation and a palpable posterior tibial pulse. I do not feel any deep seated masses on the distal femur. There is an effusion noted with tenderness along the distal femur with careful compression. I reviewed her x-rays from 03/2005. These show no bony abnormalities. There is an effusion noted on the x-ray with no identifiable fracture. ASSESSMENT: Persistent left knee effusion for three months. PLAN: Today I am recommending a repeat x-ray of the left knee. We will also order an MRI of her left knee. We will also order lab tests to include sed rate, CRP, CBC, LISA, and Lyme screen test. Differential diagnosis at this time includes PVNS. Also would include some type of inflammatory arthritis or nonspecific synovitis. We will follow up with her next week after the results of these tests. LAXMI:[id number] C: 06/05/05 16:44 DOCUMENT: [id number] documented in this encounter Plan of Treatment Upcoming Encounters Date Type Specialty Care Team Description 05/18/2022 Appointment Rheumatology Erasmo Horn MD [address] [facility] [id number] (Wo rk) documented as of this encounter Procedures Procedure Name Priority Date/Time Associated Diagnosis Comme nts XR KNEE LT 3 VIEWS Routine 06/05/2005 1:57 PM Res ults for this CDT procedure are i n the results section. documented in this encounter Results XR Knee Lt 3 Views (06/05/2005 1:57 PM CDT) Anatomical Region Laterality Modality Lower Extremity, Knee Other Specimen (Source) Anatomical Location Collection Method / Collectio n Time Received Time / Laterality Volume Narrative 06/05/2005 1:57 PM CDT HISTORY: ??Pain. No acute or significant bone or joint ab normality. [facility]/ [id number] Dictating EDUIN AMES RADIOLOGIST Procedure Note Eduin Barnett - 11/02/2016Formatting o f this note might be different from the original. HISTORY: Pain. No acute or significant bone or joint ab normality. [facility]/ [id number] Dictating EDUIN AMES RADIOLOGIST Amos George MD RAD GD documented in this encounter Visit Diagnoses Not on filedocumented in this encounter Care Teams Seamless Hosiery Knitter Relationship Specialty Start Date End Date Md Valentin MD PCP - General 11/28/10 03/07/15 [place] [address] documented as of this encounter
--- OUTSIDE RECORDS SUMMARY | 2022-05-17 08:36 | XMS_ITS | Encounter Summary ---
:1985 Author Organization [facility] Address [address] [place] [address] Care Team Providers Name Role Phone Md YOBANI Valentin Primary Care Provider Encounter Details Date Type Department Care Team Description 07/12/2005 Office Visit [facility] [address] Cherie Plascencia PA-C Rheumatology [address] [place] [facility] [address] [place] [address] [phone] Social History Tobacco Use Types Packs/Day Years Used Date Smoking Tobacco: Never Assessed Sex Assigned at Date Recorded Not on file documented as of this encounter Last Filed Vital Signs Vital Sign Reading Time Taken Comments Blood Pressure 108/70 07/12/2005 9:42 AM STEEL RULE DIE MAKER Pulse - - Temperature - - Respiratory Rate - - Oxygen Saturation - - Inhaled Oxygen Concentration - - Weight 60.8 kg (133 lb 15.9 oz) 07/12/2005 9:42 AM C: 6 0.8kg STEEL RULE DIE MAKER Height 156.2 cm (5' 1.5) 07/12/2005 9:42 AM C: 156.2cm STEEL RULE DIE MAKER Body Mass Index 24.91 07/12/2005 9:42 AM STEEL RULE DIE MAKER Body Mass Index Percentile 82.61 % 07/12/2005 9:42 AM STEEL RULE DIE MAKER Growth Chart: CDC (Girls, 2-20 Years) documented in this encounter Progress Notes Kristy Plascencia PA-C - 07/12/2005 12:01 AM CST Progress Notes signed by Kristy Plascencia PA-C at 08/01/05 1813 Author: Kristy Plascencia PA-C Service: (none) Author Type: Physician Silk Soaker Filed: 12/16/10 0839 Note Time: 07/12/05 0001 Status: Signed Director Of Cardiology: Kristy Plascencia PA-C (Physician Silk Soaker) NAME: MANJIT DOHERTY MR: [id number] ACCT: VISIT: [id number] DICTATING CLINICIAN: KRISTY PLASCENCIA PA-C JOB: [id number] CLINIC PROGRESS NOTE DATE OF VISIT: 07/12/2005 SUBJECTIVE: : 1985. Manjit returns today, accompanied by her father, with difficulties of worsening right knee pain and swelling. 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 Miller on 07/04. At that point, her right knee was hurting a bit, but not bothering her much. Since this time, her right knee has become more and more painful and somewhat swollen. She is limping as she walks. It is worse with weightbearing. She states she continues to have left knee pain, but she thinks the swelling may be slightly better. MEDICATIONS: She is simply taking Aleve 220 mg twice daily. 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 Otherwise, she has had no new swollen joints, skin rashes, or other illnesses. OBJECTIVE: VS: Normal, see flow sheet. Pleasant, WD/WN WF, NAD. MUSCULOSKELETAL: she has some mild to moderate synovitis to palpation of the right knee joint, mostly in the peripatellar region. There is no palpable effusion. Flexion and extension are fairly full but uncomfortable. The left knee has some mild synovitis to palpation, as well, with no palpable effusion. ASSESSMENT: Juvenile inflammatory arthritis. PLAN: Steroid injection is reasonable as a trial for the right knee today. After explanation of risks and benefits and consent, the medial aspect of the right knee is prepped with iodine and alcohol, anesthetized with ethyl chloride spray and 1.5 mL of lidocaine. Then 60 mg or 1.5 mL of triamcinolone was injected without incident. I discussed with Manjit that she can increase her Aleve up to two pills twice a day if necessary, but she should be careful of stomach upset and take this with food. She will follow up as scheduled with Dr. Miller, calling sooner if difficulties arise. CC: Hilda Aleman MD Rheumatology EAO:[id number] C: 07/14/05 05:06 DOCUMENT: [id number] L RULE DIE MAKER documented in this encounter Plan of Treatment Upcoming Encounters Date Type Specialty Care Team Description 05/18/2022 Appointment Rheumatology Erasmo Horn MD [address] [facility] [id number] (Wo rk) documented as of this encounter Visit Diagnoses Not on filedocumented in this encounter Care Teams Laborer High Density Press Relationship Specialty Start Date End Date Md Valentin MD PCP - General 11/28/10 03/07/15 [place], [place] [id number] documented as of this encounter
--- OUTSIDE RECORDS SUMMARY | 2022-05-17 08:36 | XMS_ITS | Encounter Summary ---
:1985 Author [facility] Address [address] [place] [address] Care Team Providers Name Role Phone Md YOBANI Valentin Primary Care Provider Encounter Details Date Type Department Care Team Description 07/03/2005 [facility] [address] [place] [address] Social History Tobacco Use Types Packs/Day Years Used Date Smoking Tobacco: Never Assessed Sex Assigned at Date Recorded Not on file documented as of this encounter Plan of Treatment Upcoming Encounters Date Type Specialty Care Team Description 05/18/2022 Appointment Rheumatology Erasmo Horn MD [address] [facility] [address] (Wo rk) documented as of this encounter Visit Diagnoses Not on filedocumented in this encounter Care Teams Big Data Hadoop Developer Relationship Specialty Start Date End Date Md Valentin MD PCP - General 11/28/10 03/07/15 [place] [address] documented as of this encounter
--- OUTSIDE RECORDS SUMMARY | 2022-05-17 08:36 | XMS_ITS | Encounter Summary ---
:1985 Author [facility] Address [address] [place] [address] Care Team Providers Name Role Phone Md YOBANI Valentin Primary Care Provider Encounter Details Date Type Department Care Team Description 08/22/2005 Office Visit [facility] arvind Summers, [address] [facility] [place] [address] [address] [facility] [phone] [facility] N [address] (Wo rk) Social History Tobacco Use Types Packs/Day Years Used Date Smoking Tobacco: Never Assessed Sex Assigned at Date Recorded Not on file documented as of this encounter Last Filed Vital Signs Vital Sign Reading Time Taken Comments Blood Pressure 112/58 08/22/2005 12:09 PM SUPPLY CHAIN MANAGER Pulse 90 08/22/2005 12:09 PM SUPPLY CHAIN MANAGER Temperature - - Respiratory Rate - - Oxygen Saturation - - Inhaled Oxygen Concentration - - Weight 62.1 kg (136 lb 15.9 oz) 08/22/2005 12:09 PM C: 62.1kg SUPPLY CHAIN MANAGER Height - - Body Mass Index - - documented in this encounter Progress Notes Derrick Summers MD - 08/22/2005 12:01 AM CST Progress Notes signed by Derrick Summers MD at 08/22/05 3997 Author: Derrick Summers MD Service: (none) Author Type: Physician Filed: 12/16/10 0927 Note Time: 08/22/05 0001 Status: Signed Blacking Machine Operator: Derrick Summers MD (Physician) NAME: MANJIT DOHERTY MR: [id number] ACCT: [id number] VISIT: [id number] DICTATING CLINICIAN: DERRICK SUMMERS MD JOB: [id number] CLINIC PROGRESS NOTE DATE OF VISIT: 08/22/2005 SUBJECTIVE: : 1985. CHIEF COMPLAINT: Recent flare of her juvenile rheumatoid arthritis. HISTORY OF PRESENT ILLNESS: I have been following this patient for a few months. She has pauciarticular juvenile rheumatoid arthritis which involves mainly over her left knee joint. Cortisone injection was very helpful. She did well until June when she developed right knee pain. She saw my colleague, Kristy Plascencia, who could see evidence of inflammation. Cortisone injection was also provided into the right knee that helped to relieve the symptoms. However, her knees have remained stiff with inactivities. Her left hip has also started to cause problem with pain on weightbearing. The location is over the left groin. There is no other joint involvement and there is no significant morning stiffness. There is no history that might suggest inflammatory eyes. Her past medical history, family and social history were reviewed and updated. CURRENT MEDICATIONS: Were reviewed and updated. ADR/ALLERGIES: WERE REVIEWED AND UPDATED. OBJECTIVE: VS: BP: 112/58. P: 90 per minute. Wt: 137. GENERAL APPEARANCE: Young female who was not in her acute distress. SKIN: No rash, tophi or nodules. HEENT: No conjunctivitis, scleritis or active uveitis. No malar rash, discoid rash or alopecia. No sinus tenderness or oral or nasal mucosal ulcers. HEART: RRR. LUNGS: CTA bilaterally. MUSCULOSKELETAL: No evidence of active synovitis or arthritis involving both knee joints. She has slight limited range of motion of the left hip joint to 60 degrees on external rotation because of the pain over the left groin. Other than that, there is no significant synovitis or active arthritis involving any other joints of the four extremities. ASSESSMENT: Juvenile rheumatoid arthritis. PLAN: It has seemed like she has progressed to start having other joint involvements. As a result, I think we should start disease-modifying agents. Discussed with her father and the patient that methotrexate will be helpful for this condition. Side effects include increased risk of infection, , rare bone marrow suppression, liver inflammation and lung inflammation and the importance of having blood monitoring. She also understands about the importance of maintaining effective contraception as this can cause . After a prolonged discussion they agree to take methotrexate. I will start 12.5 mg per week and folic acid 1 mg per day. I will give her naproxen 375 mg twice a day as needed for pain as it will take the next few weeks before methotrexate starts working. I will see her back again in two months. She will have another blood test for CBC, C-reactive protein, AST and albumin. I printed out information related to methotrexate for her to review. Total time 15 minutes with 10 minutes spent for counseling and education and discussion about medical management of JRA and methotrexate. [id number] C: 08/22/05 13:41 DOCUMENT: [id number] LY CHAIN MANAGER documented in this encounter Plan of Treatment Upcoming Encounters Date Type Specialty Care Team Description 05/18/2022 Appointment Rheumatology Erasmo Horn MD [address] [facility] [id number] (Wo rk) documented as of this encounter Visit Diagnoses Not on filedocumented in this encounter Care Teams Belt Sander Stone Relationship Specialty Start Date End Date Md Valentin MD PCP - General 11/28/10 03/07/15 [place], [place] [address] documented as of this encounter
--- OUTSIDE RECORDS SUMMARY | 2022-05-17 08:36 | XMS_ITS | Encounter Summary ---
:1985 Author Organization [facility] Address [address] [place] [address] Care Team Providers Name Role Phone Md YOBANI Valentin Primary Care Provider Reason for Visit Reason Comments Other Encounter Details Date Type Department Care Team Description 06/20/2005 Telephone Specialty [facility] [address], Amos Romero MD Other Orthopedics [address] [place] [address] [place] [address] [place] [address] [phone] Social History Tobacco Use Types Packs/Day Years Used Date Smoking Tobacco: Never Assessed Sex Assigned at Date Recorded Not on file documented as of this encounter Progress Notes Faby Mcgovern RN - 06/20/2005 3:01 PM CDT Phone Note filed by Faby Mcgovern RN at 12/12/102142 Author: Faby Mcgovern RN Service: (none) Author Type: (none) Filed: 12/12/102142 Note Time: 06/20/05 1501 Status: Signed Compressor Operator Portable: Ciro Ram pt called wanting results of knee cultures, pls call her at pt also states her knee is not getting any better ?appt Created on 20Jun2005 3:01pm by FABY MCGOVERN On 21Jun2005 2:56pm AMOS ARREOLA wrote: my personal carer called pt back and setup a rheumatology appt for next week. Acknowledged by AMOS ARREOLA on 2:56pm CTURAL METAL FABRICATOR APPRENTICE documented in this encounter Plan of Treatment Upcoming Encounters Date Type Specialty Care Team Description 05/18/2022 Appointment Rheumatology Erasmo Horn MD [address] [facility] [address] (Wo rk) documented as of this encounter Visit Diagnoses Not on filedocumented in this encounter Care Teams Truck Loader And Unloader Relationship Specialty Start Date End Date Md Vlaentin MD PCP - General 11/28/10 03/07/15 [place], [place] [id number] documented as of this encounter
--- OUTSIDE RECORDS SUMMARY | 2022-05-17 08:36 | XMS_ITS | Encounter Summary ---
:1985 Author Organization [employer] Address [address] [place] [address] Care Team Providers Name Role Phone Md YOBANI Valentin Primary Care Provider Encounter Details Date Type Department Care Team Description 04/17/2005 Office Visit [facility] [place] [address] [place] [address] [place], [place] [phone] (Wo rk) Social History Tobacco Use Types Packs/Day Years Used Date Smoking Tobacco: Never Assessed Sex Assigned at Date Recorded Not on file documented as of this encounter Last Filed Vital Signs Vital Sign Reading Time Taken Comments Blood Pressure 126/90 04/17/2005 10:38 AM C: Dynamap CDT Pulse 86 04/17/2005 10:38 AM CDT Temperature 36.8 ??C (98.2 ??F) 04/17/2005 10:38 AM ORAL C: 36.8 C CDT Respiratory Rate 16 04/17/2005 10:38 AM CDT Oxygen Saturation - - Inhaled Oxygen Concentration - - Weight - - Height - - Body Mass Index - - documented in this encounter Progress Notes Ritchie Baig MD - 04/17/2005 12:01 AM CDT Progress Notes signed by Ritchie Baig MD at 04/30/05 0922 Author: Ritchie Baig MD Service: (none) Author Type: Physician Filed: 12/16/10 0658 Note Time: 04/17/05 0001 Status: Signed Surface Grinder: Ritchie Baig MD (Physician) NAME: MANJIT DOHERTY MR: [id number] ACCT: [id number] VISIT: [id number] DICTATING CLINICIAN: RITCHIE BAIG MD JOB: [id number] CLINIC PROGRESS NOTE DATE OF VISIT: 04/17/2005 SUBJECTIVE: : 1985. Manjit is a 19-year-old complaining of left knee pain that began about 2 weeks ago, came on gradually. Does not recall any specific injury to it. She has had no recent illnesses and no illnesses preceding that such as fever, chills, cough, anything suggestive of strep or Lyme. Had no tick bites. No trauma. Hurts when she stands on it. Swelling goes down in the morning. She works at her dad's [employer] place and is on her feet quite a bit. She does not participate in sports on a regular basis. Hurts worse when she goes up and down steps. Has no history of bone or joint abnormalities. FAMILY HISTORY: No family history of bone or joint abnormalities. MEDICATIONS: She took some Advil occasionally for it. Has not taken anything today. Put ice on it yesterday but not today. PAST MEDICAL HISTORY: Has no significant medical problems. ADR/ALLERGIES: HAS NO ALLERGIES TO MEDICATIONS. Brought in by her dad. OBJECTIVE: VS: BP: 126/90. T: 98.3. P: 86. R: 16. LEFT KNEE: Has a mild effusion and tenderness to palpation over the lateral joint line and extending into the infrapatellar tendons. No tenderness over the medial joint line or the suprapatellar area. There is no redness or warmth associated with it. She has excellent range of motion on flexion and extension but is uncomfortable at the extreme of flexion. No hyperextension and apprehension test is negative. Anterior and posterior drawer negative as well as varus and valgus. No increased laxity, but she is somewhat uncomfortable and complains of pain in the lateral joint line. X-rays were obtained and reviewed by myself, negative for evidence of acute bony abnormality, soft tissue swelling was noted. ASSESSMENT: Left knee pain, suspect a sprain. PLAN: Francisco Javier wrap was placed. Recommended ice, elevation, Tylenol or Motrin for discomfort over the next few weeks. Follow up p.r.n. MKB:[id number] C: 04/18/05 05:35 DOCUMENT: [id number] documented in this encounter Plan of Treatment Upcoming Encounters Date Type Specialty Care Team Description 05/18/2022 Appointment Rheumatology Erasmo Horn MD [address] [facility] [address] [address] (Wo rk) documented as of this encounter Procedures Procedure Name Priority Date/Time Associated Diagnosis Comme nts XR KNEE LT 4 VIEWS Routine 04/17/2005 11:54 AM Re sults for this CDT procedure are i n the results section. documented in this encounter Results XR Knee Lt 4 Views (04/17/2005 11:54 AM CDT) Anatomical Region Laterality Modality Lower Extremity, Knee Other Specimen (Source) Anatomical Location Collection Method / Collectio n Time Received Time / Laterality Volume Narrative 04/17/2005 11:54 AM CDT Findings: BN1 No radiographic evidence of bone or join t abnormality. Dictating MARGO ESCOBAR RADIOLOGIST Procedure Note Margo Recinos - 11/02/2016 Findings: BN1 No radiographic evidence of bone or join t abnormality. Dictating MARGO ESCOBAR RADIOLOGIST Ritchie Baig MD RAD GD documented in this encounter Visit Diagnoses Not on filedocumented in this encounter Care Teams Arson Investigator Relationship Specialty Start Date End Date Md Valentin MD PCP - General 11/28/10 03/07/15 [place] [address] documented as of this encounter
--- OUTSIDE RECORDS SUMMARY | 2022-05-17 08:36 | XMS_ITS | Encounter Summary ---
:1985 Author Organization [facility] Address [address] [facility] [place] [address] Care Team Providers Name Role Phone Md YOBANI Valentin Primary Care Provider Encounter Details Date Type Department Care Team Description 06/16/2005 Office Visit [facility] Brianna George MD [facility] Orthopedics [facility] [address] [address] [place] [address] [phone] Social History Tobacco Use Types Packs/Day Years Used Date Smoking Tobacco: Never Assessed Sex Assigned at Date Recorded Not on file documented as of this encounter Progress Notes Amos George MD - 06/16/2005 12:01 AM CDT Progress Notes signed by Amos George MD at 06/16/05 1631 Author: Amos George MD Service: (none) Author Type: Physician Filed: 12/16/10 0807 Note Time: 06/16/05 0001 Status: Signed Process Maintenance Technician: Amos George MD (Physician) NAME: MANJIT DOHERTY MR: [id number] ACCT: [id number] VISIT: [id number] DICTATING CLINICIAN: AMOS GEORGE MD JOB: [id number] CLINIC PROGRESS NOTE DATE OF VISIT: 06/16/2005 SUBJECTIVE: Manjit is here today for a knee aspiration. I have been following her for a nontraumatic three month history of a persistent left knee effusion. Initial laboratory work up included CRP, sed rate, white cell count and Lyme disease titer were all negative including anti-nuclear antibody and rheumatoid factor. She continues to have persistent knee swelling. Today after coming back in for a left knee aspiration we removed approximately 10 to 12 cc of yellowish covered synovial fluid from the left knee. I sent this off for cell count for crystal analysis and for aerobic and anaerobic culture and gram stain. I will call her next week with the results of the aspiration. If these are inconclusive my next step would be to have her see the mgmt specialist for possible work up for inflammatory arthritis. OBJECTIVE: ASSESSMENT: PLAN: [facility]:[id number] C: 06/16/05 14:22 DOCUMENT: [id number] documented in this encounter Plan of Treatment Upcoming Encounters Date Type Specialty Care Team Description 05/18/2022 Appointment Rheumatology Eramso Horn MD [address] [facility] [address] (Wo rk) documented as of this encounter Visit Diagnoses Not on filedocumented in this encounter Care Teams Online Services Manager Relationship Specialty Start Date End Date Md Valentin MD PCP - General 11/28/10 03/07/15 [place], [place] [address] documented as of this encounter
--- OUTSIDE RECORDS SUMMARY | 2022-05-17 08:36 | XMS_ITS | Encounter Summary ---
:1985 Author Organization [employer] Address [address] [place] [address] Care Team Providers Name Role Phone Md YOBANI Valentin Primary Care Provider Encounter Details Date Type Department Care Team Description 06/12/2005 PN Conversion Only [place] [place] [address] Social History Tobacco Use Types Packs/Day Years Used Date Smoking Tobacco: Never Assessed Sex Assigned at Date Recorded Not on file documented as of this encounter Plan of Treatment Upcoming Encounters Date Type Specialty Care Team Description 05/18/2022 Appointment Rheumatology Erasmo Horn MD [address] [facility] [address] [address] (Wo rk) documented as of this encounter Procedures Procedure Name Priority Date/Time Associated Diagnosis Comme nts MR KNEE LT WO IV Routine 06/12/2005 4:37 PM Resul ts for this CONT CDT procedure are i n the results section. documented in this encounter Results MR Knee Lt WO IV Cont (06/12/2005 4:37 PM CDT) Anatomical Region Laterality Modality Lower Extremity, Knee, Skeletal, Thigh, Leg Left Other Specimen (Source) Anatomical Location Collection Method / Collectio n Time Received Time / Laterality Volume Impressions 06/12/2005 4:37 PM CDT : ? 1. ?? Moderately ?large christine int effusion. ??No definite etiology identified on this study. ? This may be inflammatory in nature. ??Infectious etiology cannot be excluded and joint aspiration should be considered. ? 2. ?? The ?remainder of th e examination is negative without evidence of meniscal or ?ligament tear. ??No focal cartilage defects. [id number] Dictating ESHA MARX RADIOLOGIST Narrative 06/12/2005 4:37 PM CDT FINDINGS: ??Routine MRI of the left knee was performed. ??No previous studies are available for comparison. MEDIAL COMPARTMENT: ??There are no focal cartilage defects in the medial compartment. ??The medial meniscu s is normal without evidence of tear. LATERAL COMPARTMENT: ??There are no foca l cartilage defects in the lateral compartment. ??The lateral menis cus is normal without evidence of tear. PATELLOFEMORAL JOINT: ??There are no foc al cartilage defects in the patellofemoral joint. ??There is a moder ately large joint effusion. No osteocartilaginous bodies identified within the joint. LIGAMENTS AND TENDONS: ??The anterior an d posterior cruciate ligaments, medial and lateral collateral ligaments, quadriceps and patellar tendons are normal. ??The popli teus muscle and tendon are normal. ??No evidence of injury to the p osterolateral corner supporting structures. MARROW AND SOFT TISSUES: ??There is no a bnormal marrow signal or evidence of soft tissue mass. Procedure Note Esha Harman MD - 11/02/2016 FINDINGS: Routine MRI of the left knee w as performed. No previous studies are available for comparison. MEDIAL COMPARTMENT: There are no focal c artilage defects in the medial compartment. The medial meniscus is normal without evidence of tear. LATERAL COMPARTMENT: There are no focal cartilage defects in the lateral compartment. The lateral meniscu s is normal without evidence of tear. PATELLOFEMORAL JOINT: There are no focal cartilage defects in the patellofemoral joint. There is a moderat selvin large joint effusion. No osteocartilaginous bodies identified within the joint. LIGAMENTS AND TENDONS: The anterior and posterior cruciate ligaments, medial and lateral collateral ligaments, quadriceps and patellar tendons are normal. The poplite us muscle and tendon are normal. No evidence of injury to the pos terolateral corner supporting structures. MARROW AND SOFT TISSUES: There is no abn ormal marrow signal or evidence of soft tissue mass. IMPRESSION : 1. Moderately large joint effusion. No definite etiology identified on this study. This may be inflammatory in nature. Infectious etiology cannot be ex cluded and joint aspiration should be considered. 2. The remainder of the examination is negative without evidence of meniscal or ligament tear. N o focal cartilage defects. [id number] Dictating ESHA MARX RADIOLOGIST Amos George MD RAD MRI documented in this encounter Visit Diagnoses Not on filedocumented in this encounter Care Teams Vice President Medical Affairs Relationship Specialty Start Date End Date Md Valentin MD PCP - General 11/28/10 03/07/15 [place] [address] documented as of this encounter
--- OUTSIDE RECORDS SUMMARY | 2022-05-17 08:36 | XMS_ITS | Encounter Summary ---
:1985 Author Organization [employer] Address [address] [place] [address] Care Team Providers Name Role Phone Md YOBANI Valentin Primary Care Provider Encounter Details Date Type Department Care Team Description 06/28/2005 PN Conversion Only SYSTEM CONTROLLER [address] [place] [address] [address] [place], [place] [id number] (Wo rk) Social History Tobacco Use Types Packs/Day Years Used Date Smoking Tobacco: Never Assessed Sex Assigned at Date Recorded Not on file documented as of this encounter Plan of Treatment Upcoming Encounters Date Type Specialty Care Team Description 05/18/2022 Appointment Rheumatology Erasmo Horn MD [address] [facility] [address] [address] (Wo rk) documented as of this encounter Procedures Procedure Name Priority Date/Time Associated Comments Diagnosis BODY FLUID CULTURE Routine 06/28/2005 4:15 PM Res ults for this MACHINE PACKAGER procedure are i n the results section. FUNGUS Routine 06/28/2005 4:15 PM Results f or this CULTURE,MISCELLANEOUS MACHINE PACKAGER proced ure are in the results section. AFB CULTURE Routine 06/28/2005 4:15 PM Results f or this MACHINE PACKAGER procedure are i n the results section. HLA B27 Routine 06/28/2005 3:48 PM Results f or this MACHINE PACKAGER procedure are i n the results section. CYCLIC CITRULLINATED Routine 06/28/2005 3:48 PM R esults for this PEPTIDEAB MACHINE PACKAGER procedure are i n the results section. RHEUMATOID FACTOR, Routine 06/28/2005 3:48 PM Res ults for this QUANT MACHINE PACKAGER procedure are i n the results section. C-REACTIVE PROTEIN Routine 06/28/2005 3:48 PM Res ults for this MACHINE PACKAGER procedure are i n the results section. SYNOVIAL SOURCE Routine 06/28/2005 3:36 PM Result s for this MACHINE PACKAGER procedure are i n the results section. SIDE OF BODY Routine 06/28/2005 3:36 PM Results f or this MACHINE PACKAGER procedure are i n the results section. BODY FLUID CRYSTALS Routine 06/28/2005 3:36 PM Re sults for this MACHINE PACKAGER procedure are i n the results section. CELL COUNT & DIFF, Routine 06/28/2005 3:36 PM Res ults for this BODY FLUID MACHINE PACKAGER procedure are i n the results section. documented in this encounter Results Body Fluid Culture (06/28/2005 4:15 PM MACHINE PACKAGER) Analysis Performed At Patho logist Time Signature Body Fluid SEE TEXT HP CONVERSION Culture Comment: Patient: MANJIT DOHERTY Culture, Body Fluid @ ? Collected: ??[id number] ??[id number] Source: SYNOVIAL ?Processed: ?1615 ? LEFT KNEE Stains/Preparations -- GRAM STAIN ?[id number] ??1700 Many WBCS No organisms seen Final Report ------ ?[id number] ??[id number] No growth @ = BODY FLUID CULT Performed at ??[address] [place] ?[address] Specimen (Source) Anatomical Collection Method Collection Time Re ceived Time Location / / Volume Laterality 06/28/2005 4:15 PM MACHINE PACKAGER Jaylon Aleman MD LAB_1 Performing Organization Address City/State/ZIP Code Phon e Number HP CONVERSION AFB Culture (06/28/2005 4:15 PM MACHINE PACKAGER) athologist Signature AFB Culture SEE TEXT HP CONVERSION Comment: Patient: MANJIT DOHERTY Culture, AFB @ ?Collected: ??[id number] ??161 Source: SYNOVIAL ?Processed: ??[id number] ??1615 ? LEFT KNEE Stains/Preparations -- AFB STAIN ? [id number] ??1351 No acid-fast bacilli seen Final Report ------ ?[id number] ??1419 Culture negative for Acid fast bacilli a t 6 weeks. @ = AFB CULTURE Performed at ??[facility], [address] [place] [address], ?[facility] [place] [address] Specimen (Source) Anatomical Collection Method Collection Time Re ceived Time Location / / Volume Laterality 06/28/2005 4:15 PM MACHINE PACKAGER Jaylon Aleman MD LAB_1 Performing Organization Address City/State/ZIP Code Phon e Number HP CONVERSION Fungus Culture,Miscellaneous (06/28/2005 4:15 PM MACHINE PACKAGER) [facility] Time Signature Fungus Culture SEE TEXT HP CONVERSION Comment: Patient: MANJIT DOHERTY Culture, Fungal @ ? Collected: ??[id number] ??[id number] Source: SYNOVIAL ?Processed: ?161 ? LEFT KNEE Stains/Preparations -- IZABELA PREP ?[id number] ??0727 No yeast or fungal elements seen Final Report ------ ?[id number] ??0932 No yeast, fungus, or Nocardia isolated. Specimen (Source) Anatomical Collection Method Collection Time Re ceived Time Location / / Volume Laterality 06/28/2005 4:15 PM MACHINE PACKAGER Jaylon Aleman MD LAB_1 Performing Organization Address [facility] Phon e Number HP CONVERSION C-Reactive Protein (06/28/2005 3:48 PM MACHINE PACKAGER) P athologist Signature CRP <0.2 0.0 - 0.9 HP CONVERSION mg/dL Specimen (Source) Anatomical Collection Method Collection Time Re ceived Time Location / / Volume Laterality 06/28/2005 3:48 PM MACHINE PACKAGER Jaylon Aleman MD LAB_1 Performing Organization Address City/[facility] Code Phon e Number HP CONVERSION Cyclic Citrullinated PeptideAB (06/28/2005 3:48 PM MACHINE PACKAGER) Patholo gist Method Time Signature Cyclic 4 units HP CONVERSION Citrullinated Peptide Ab Comment: Interpretive data: REFERENCE INTERVAL: Cyclic Citrullinated Peptide Ab, IgG ??Less than 20 units ...... Negative ??20-39 units ............. Weak Positi ve ??40-59 units ............. Moderate Po sitive ??60 units or greater ..... Strong Posi tive Approximately 70% of patients with RA ar e positive for CCP IgG, while only 2% of random blood d onors and disease control are positive. The diagnostic sarabjit ue of antibodies to CCP in juvenile rheumatoid arthritis patients has not been determined. Specimen (Source) Anatomical Collection Method Collection Time Re ceived Time Location / / Volume Laterality 06/28/2005 3:48 PM MACHINE PACKAGER Jaylon Aleman MD LAB_1 Performing Organization Address City/[facility] Code Phon e Number HP CONVERSION Rheumatoid Factor, Quant (06/28/2005 3:48 PM MACHINE PACKAGER) [facility] Method Time Signature Rheumatoid Negative 0 - 20 HP CONVERSION Factor IU/mL Specimen (Source) Anatomical Collection Method Collection Time Re ceived Time Location / / Volume Laterality 06/28/2005 3:48 PM MACHINE PACKAGER Jaylon Aleman MD LAB_1 Performing Organization Address [facility] Phon e Number HP CONVERSION HLA B27 (06/28/2005 3:48 PM MACHINE PACKAGER) athologist Signature HLA B27 Negative Negative HP CONVERSION Comment: Reference Range: Negative A positive HLA-B27 is associated with An kylosing Spondylitis. This antigen is carried by 8% of the [facility] population. Specimen (Source) Anatomical Collection Method Collection Time Re ceived Time Location / / Volume Laterality 06/28/2005 3:48 PM MACHINE PACKAGER Jaylon Aleman MD LAB_1 Performing Organization Address [facility] Phon e Number HP CONVERSION Cell Count & Diff, Body Fluid (06/28/2005 3:36 PM MACHINE PACKAGER) [facility] Method Time Signature Body Fluid Type Synovial No normal HP CONVERSION range Body Fluid SlCloudy No normal HP CONVERSION Appearance range Body Fluid RBC 4,440 /cmm HP CONVERSION Body Fluid WBC 7,900 /cmm HP CONVERSION Body Fluid 2.0 mL HP CONVERSION Total Volume Comment: 2 ML FLUID SENT TO HEMATOLOGY L AB Body Fluid Polys 75 % HP CONVERSION BF Lymphocytes 20 % HP CONVERSION Body Fluid Monos 4 % HP CONVERSION Body Fluid EOS 1 % HP CONVERSION BF Basophils 0 % HP CONVERSION Specimen (Source) Anatomical Collection Method Collection Time Re ceived Time Location / / Volume Laterality 06/28/2005 3:36 PM MACHINE PACKAGER Jaylon Aleman MD LAB_1 Performing Organization Address [facility] Phon e Number HP CONVERSION Body Fluid Crystals (06/28/2005 3:36 PM MACHINE PACKAGER) [facility] Method Time Signature Body Fluid Synovial No normal HP CONVERSION Type range Body Fluid NoCrystl No normal HP CONVERSION Crystal ID range Specimen (Source) Anatomical Collection Method Collection Time Re ceived Time Location / / Volume Laterality 06/28/2005 3:36 PM MACHINE PACKAGER Jaylon Aleman MD LAB_1 Performing Organization Address City/[facility]/ZIP Code Phon e Number HP CONVERSION Side Of Body (06/28/2005 3:36 PM MACHINE PACKAGER) athologist Signature Synovial Fluid Left No normal HP CONVERSION Side Of Body range Specimen (Source) Anatomical Collection Method Collection Time Re ceived Time Location / / Volume Laterality 06/28/2005 3:36 PM MACHINE PACKAGER Jaylon Aleman MD LAB_1 Performing Organization Address City/[facility] Code Phon e Number HP CONVERSION Synovial Source (06/28/2005 3:36 PM MACHINE PACKAGER) athologist Signature Synovial Fluid KNEE No normal HP CONVERSION Source range Specimen (Source) Anatomical Collection Method Collection Time Re ceived Time Location / / Volume Laterality 06/28/2005 3:36 PM MACHINE PACKAGER Jaylon Aleman MD LAB_1 Performing Organization Address City/[facility]/ZIP Code Phon e Number HP CONVERSION documented in this encounter Visit Diagnoses Not on filedocumented in this encounter Care Teams Senior Administrative Associate Relationship Specialty Start Date End Date Md Valentin MD PCP - General 11/28/10 03/07/15 [place] [address] documented as of this encounter
[2022-05-17 10:31] LABS: Cholesterol* 175 mg/dL (90-199); Triglycerides* 177 mg/dL (40-149)
[2022-05-17 10:32] LABS: HDL Cholesterol* 57 mg/dL (>=50); LDL Cholesterol Calculated 83 mg/dL (<100)
[2022-05-17 10:44] LABS: Vitamin D 25 Hydroxy* 47 ng/mL (30-80)
== END 2022-05-17 08:25 | disposition home or self-care (01) ==
PROVIDERS: PCP Family Medicine; Visit Provider Registered Nurse
DX: Z01.419 Encounter for gynecological examination (general) (routine) without abnormal findings (principal); R53.83 Other fatigue; E03.9 Hypothyroidism, unspecified; I10 Essential (primary) hypertension; F41.1 Generalized anxiety disorder; N89.8 Other specified noninflammatory disorders of vagina; Z13.6 Encounter for screening for cardiovascular disorders
CPT/HCPCS: 80061; 82306; 84443

== ENCOUNTER 2022-08-23 09:20 | Outpatient (CLI) | payer OTHER, SELFPAY ==
[2022-08-23 13:55] LABS: Basophils Absolute Auto 0.02 K/uL (0.00-0.30); Basophils Percent Auto 0.3 % (0.0-3.0); Eosinophils Absolute Auto 0.15 K/uL (0.00-0.50); Eosinophils Percent Auto 2.3 % (0.0-7.0); Hematocrit 43.6 % (33.0-51.0); Hemoglobin* 14.1 gm/dL (12.0-16.0); Immature Granulocytes Abs Auto 0.03 K/uL (0.00-0.30); Immature Granulocytes Pct Auto 0.5 %; Lymphocytes Absolute Auto 1.59 K/uL (0.90-2.90); Lymphocytes Percent Auto 23.9 % (20-44); Mean Corpuscular HGB Conc 32 gm/dL (32-36); Mean Corpuscular Hemoglobin 29 pg (26-34); Mean Corpuscular Volume 89 fL (80-100); Monocytes Percent Auto 5.4 % (0.0-11.0); Neutrophils Percent Auto 67.6 % (42.0-72.0); Platelet Count* 287 K/uL (140-440); Red Blood Count 4.92 m/uL (4.00-5.20); White Blood Count* 6.65 K/uL (4.50-11.00)
[2022-08-23 14:00] LABS: Slide Review Reflex No
[2022-08-23 14:14] LABS: Chloride* 102 mmol/L (96-114); Potassium* 4.6 mmol/L (3.6-5.1); Sodium* 137 mmol/L (135-149)
[2022-08-23 14:17] LABS: Creatinine* 0.7 mg/dL (0.5-1.5); Estimated Glomerular Filt Rate 116 ml/min
[2022-08-23 14:18] LABS: Blood Urea Nitrogen* 11 mg/dL (5-24); Calcium* 9.1 mg/dL (8.4-10.6); Carbon Dioxide* 28 mmol/L (20-32); Glucose* 88 mg/dL (60-115)
[2022-08-23 14:21] LABS: C Reactive Protein* 0.6 mg/dL (0.5-1.0)
== END 2022-08-23 09:21 | disposition home or self-care (01) ==
PROVIDERS: PCP Family Medicine; Visit Provider Family Medicine
DX: R59.0 Localized enlarged lymph nodes (principal); I10 Essential (primary) hypertension; E03.9 Hypothyroidism, unspecified; E66.9 Obesity, unspecified; N92.1 Excessive and frequent menstruation with irregular cycle
CPT/HCPCS: 80048; 85025; 86140

== ENCOUNTER 2023-04-24 09:32 | Outpatient (CLI) | payer OTHER, SELFPAY | END 2023-04-24 09:33 | disposition home or self-care (01) | PROVIDERS: PCP Family Medicine; Visit Provider Family Medicine | DX: I10 Essential (primary) hypertension (principal); E03.9 Hypothyroidism, unspecified; N92.1 Excessive and frequent menstruation with irregular cycle; Z13.6 Encounter for screening for cardiovascular disorders | CPT/HCPCS: 80048; 80061; 84443; 85025 ==

== ENCOUNTER 2023-06-26 09:38 | Outpatient (CLI) | payer OTHER, SELFPAY ==
--- OUTSIDE RECORDS SUMMARY | 2023-06-26 09:40 | XMS_ITS | Continuity of Care Document ---
Author Name Unknown Organization [facility] Address [address] [place] [address] Phone Care Team Providers Care Trauma Surgeon Name Role Phone Will MD BROWN, Enrique Harris Allergies, Adverse Reactions, Alerts Substance Reaction Status Criticality nickel Active No Information metoprolol Active No Information levothyroxine Active No Information tramadol HivesHivesHives Active No Informati on oxycodone HivesHivesHives Active No Informati on hydrocodone Active No Information Medications Medication Instructions Dosage Effective Dates (start - stop) Status Comments diclofenac sodium 75 mg tablet,delayed release take 1 tablet by oral route 2 times every day 75 MG - Active Cymbalta 60 mg capsule,delayed release take 1 capsule by oral route every day 60 MG - Active atenolol 100 mg tablet take 1 tablet by oral route every day 100 MG - Active colestipol 1 gram tablet take 2 tablet by oral route every day swallowing whole with any liquid. Do not crush, chew and/or divide. 2 G - Active Cosentyx 300 mg/2 Syringes (150 mg/mL) subcutaneous inject 2 milliliter by subcutaneous route every 4 weeks in the abdomen, thigh, or outer area of upper arm (rotate sites) 300 MG - Active Zofran 4 mg tablet take 1 tablet by oral route every day as needed 4 MG - Active Maxalt 10 mg tablet take 1 tablet by oral route once, may repeat at 2 hour intervals; do not exceed 30 mg in 24 hours as needed 10 MG - Active tizanidine 2 mg tablet take 1-2 tablets by oral route every 6 - 8 hours as needed not to exceed 3 doses in 24 hours - No Longer Active Flector 1.3 % transdermal 12 hour patch apply 1 patch by transdermal route 2 times every day to most painful area 180 MG - No Longer Active Procedures Procedure Date Facet Jt Inj Or MBB Cervical/Thoracic RI GHT Facet Jt Inj Or MBB Cerv/Thor 2nd Level RIGHT Facet Jt Inj Or MBB Cerv/Thor 3rd Level RIGHT OFFICE/OUTPATIENT VISIT, EST INTERLAMINAR CRV OR THRC INJ FORAMEN EPIDURAL L/S BILATERAL INJ TRIGGER POINT, 1/2 MUSCL OFFICE/OUTPATIENT VISIT, EST Kenalog Triamcinolone acetonide inj PT-FOCUSED HLTH RISK ASSMT INJECT TRIGGER POINTS, =/> 3 OFFICE/OUTPATIENT VISIT, NEW Advance Directives Directive Yes / No Effective Date File Name No Information Encounters Encounter Description Practice Location Reason(s) For Visit Diagnoses Date Provider Providers Copied on Encounter [facility], [address] [place] [address], [id number] , [place] tel: [phone] [facility] [place] No Information 2 Griffin Nunez. [address] [place], [id number] , [place]. 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 [facility], [address], [place], [address], [place]. tel:[phone] Referring Provider: Enrique Carnes, [address] [place] [address] [place], [address] . tel:[phone] OFFICE/OUTPA TIENT VISIT, EST [facility], [address] [place], [id number] , [place] tel: [phone] [facility] [place] Back Pain (chief complaint) Strain of fascia of lower back, initial encounterRheumatoid arthritisOther intervertebral disc degeneration, thoracic regionChronic pain syndromeMyalgia, other siteOther cervical disc displacement, high cervical regionOther intervertebral disc displacement, lumbar regionSpondylosis w/o myelopathy of cervical region 1 Lilliam Archer. [address] [place] [address] [address], [place], [id number] , [place]. tel: [phone] Referring Provider: Enrique Carnes, [address] [place] [address] [place], [address] . tel:[phone] [facility], [address] [place] [address] [place], [place], [id number] , [place] tel: [phone] [facility] Other cervical disc displacement, high cervical region 1 Jono Boles. [address] [place] [address] Jan [place], [id number] , [place]. tel: [phone] Referring Provider: Enrique Carnes, [address] [place] [address] [place], [address] . tel:[phone] [facility], [address] [place] [address] [place], [place], [id number] , [place] tel: [phone] [facility] [place] Other intervertebral disc displacement, lumbar region 1 De La Cruz Elvi. [address] [place] [address] [place], [id number] , [place]. tel: [phone] Referring Provider: Enrique Carnes, [address] [place] [address] [place], [address] . tel:[phone] [facility], [address] [place] [address] [place], [id number] , [place] tel: [phone] [facility] [place] No Information 1 Lilliam Archer. [address] [place] [address] [address], [place], [id number] , [place]. tel: [phone] OFFICE/OUTPA TIENT VISIT, [facility], [address] [place], [id number] , [place] tel: [phone] [facility] Back Pain (chief complaint) Rheumatoid arthritisOther intervertebral disc degeneration, thoracic regionChronic pain syndromeMyalgia, other siteOther cervical disc displacement, high cervical regionOther intervertebral disc displacement, lumbar regionStrain of fascia of lower back, initial encounter 1 Lilliam Archer. [address] [place] [address] [address], [place], [id number] , [place]. tel: [phone] Referring Provider: Enrique Carnes, [address] [place] [address] [place], [address] . tel:[phone] OFFICE/OUTPA TIENT VISIT, [facility], [address] [place] [address] [place], [id number] , [place] tel: [phone] [facility] Back Pain (chief complaint) Widespread pain (chief complaint) Other intervertebral disc degeneration, thoracic regionChronic pain syndromeEncounter for screening for other disorderOther intervertebral disc degeneration, lumbar regionOther cervical disc degeneration, unspecified cervical regionMyalgia, other siteRheumatoid arthritis Apr- 1 Lilliam Archer. [address] [place] [address] [address], [place], [id number] , [place]. tel: [phone] Referring Provider: Enrique Carnes, [address] [place] [address] [place], [address] . tel:[phone] [facility], [address] [place] [address] [place], [id number] , [place] tel: [phone] [facility] [place] No Information 1 Lilliam Archer. [address] [place] [address] [address], [place], [id number] , [place]. tel: [phone] Family History Family Member Type Diagnosis Age At Onset No Information Payers Payer name Insurance type Covered alliance party ID [id number] Social History Type Description Quantity Date Captured Comments Sex Female Smoking Status No Information Chief Complaint And Reason For Visit No Information Reason For Referral Reason For Referral No Information Plan Of Treatment Date Type Action Status Goal Tobacco Use. Due on due Goal Review Allergy List. Due on due Goal Height. Due on d ue Goal Weight. Due on d ue Goal Update Social History. Due o n due Goal PHQ-9. Due on du e Goal Medication Reconciliation. D ue on due Goal Review Allergy List. Due on due Goal Medication Reconciliation. D ue on due Goal Tobacco Use. Due on due Goal Height. Due on d ue Goal Update Social History. Due o n due Goal Weight. Due on d ue Goal PHQ-9. Due on du e Goal Medication Reconciliation. D ue on due Goal Height. Due on d ue Goal Update Social History. Due o n due Goal Tobacco Use. Due on due Goal Weight. Due on d ue Goal Review Allergy List. Due on due Goal PHQ-9. Due on du e Goal Weight. Due on d ue Goal Review Allergy List. Due on due Goal Update Social History. Due o n due Goal Height. Due on d ue Goal Tobacco Use. Due on due Goal Medication Reconciliation. D ue on due Goal PHQ-9. Due on du e Goal PHQ-9. Due on du e Goal Medication Reconciliation. D ue on due Goal Update Social History. Due o n due Goal Height. Due on d ue Goal Review Allergy List. Due on due Goal Weight. Due on d ue Goal Tobacco Use. Due on due History Of Present Illness Encounter Date Complaint History Of Audi cates Illness Back Pain Severity level i s 5. Duration: chronic. The problem is fluctuating. It occurs persistently. Location of pain is upper back, middle back, lower back, neck and hands.The patient describes the pain as an ache and burning. Symptoms are aggravated by ascending stairs, bending, descending stairs, lying/rest, sitting, standing, housework and prolonged positioning.The patient denies relieving factors. Back Pain (comments) Liana audi lopez for follow-up. She is followed for chronic pain in her BL hips, low back, mid back (R>L), upper back, neck (R>L), joints and muscles. Most bothersome pain is located in her neck. S/p 06/03/21 LESI and 06/20/21 VINICIUS with minimal benefit. States they had a numbing effect for a couple days, but the benefit wore off. Most of today's visit was spent discussing RFA, patient is interested and would like the order placed to her insurance. Patient is not accompanied and has no other concerns. Back Pain (comments) Liana prese nts for initial follow-up. She is followed for chronic pain in her BL hips, low back, mid back (R>L), upper back, neck (R>L), joints and muscles. Most bothersome pain is located in her mid-back. States TPIs performed at last OV provided about 1 week of relief. Requests repeat TPIs today. Since last OV, she trialed Lyrica. She states she felt really shaky and discontinued the medication. Most of today's visit was spent discussing updated imaging and available treatment options. Specifically discussed cervical and lumbar ESIs. Patient is interested and requests that the orders be placed today. Patient is not accompanied and has no other concerns. Back Pain Severity level i s 5. Duration: chronic. The problem is stable. It occurs persistently. Location of pain is upper back, middle back and lower back.The patient describes the pain as an ache and burning. Symptoms are aggravated by ascending stairs, descending stairs, lying/rest, running, standing, twisting, walking, housework, movement and prolonged positioning. Symptoms are relieved by rest. Widespread pain Pertinent negati ves include diarrhea, fatigue, fever and incontinence (urinary). Back Pain Onset: gradual w ithout injury. Severity level is 5. Duration: chronic. The problem is worsening. It occurs persistently. The patient describes the pain as an ache and burning. Symptoms are aggravated by ascending stairs, bending, descending stairs, lifting, lying/rest, running, sitting, standing, twisting, walking and movement.The patient denies relieving factors. Widespread pain (comments) Liana is a 35 y/o female, here for initial consult, self-referred, in the setting of chronic widespread pain. She details chronic pain in her BL hips, low back, mid back (R>L), upper back, neck (R>L), joints and muscles. She states her back pain is of primary concern at this time. She states she was dx with RA in . She is currently managed by Dr. Mayela Bateman at [facility], She reports that she had multiple instances of swollen, painful BL knees and managed this with aspirations and cortisone injections. She states she has BL hip pain, also previously managed for a few years with cortisone injections. She is currently managed on Cosentyx which has helped with knee pain/swelling but hip/back/neck pain persists.She states she currently manages her back pain with chiropractic adjustments, 2x/month for the past 6 years. She reports benefit immediately after, but the relief is short-lived. 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 Trialled: Cortisone injections without benefit, Celebrex 200mg 2x/day + Tylenol w/o benefit, PT at [facility]: October-January 2021 w/o benefit, Cymbalta 60mg, amitriptyline, ibuprofen, naproxen, prednisone and methotrexate.She is interested in other pain management options at [facility] at this time. No other concerns today. Functional Status Date Functional Assessmen t No Information Instructions Date Instruction Additional Infor aspen No Information Assessments Type Assessment Date No Information Patient Care Teams Name Effective Dates (start - stop) Status Members No Information
--- OUTSIDE RECORDS SUMMARY | 2023-06-26 09:40 | XMS_ITS | Continuity of Care Document ---
Author Name Unknown Organization [facility] enter Address [address] [place] [address] [address] [facility] [address] [place] [address] Phone Care Team Providers Care Bone Worker Name Role Phone [facility] Unavailable Unava ilable Procedures Procedure Date Facet Jt Inj Cervical/Thoracic RIGHT Jul Facet Jt Inj Cerv/Thor 2nd Level RIGHT D Facet Jt Inj Cerv/Thor 3rd Level RIGHT D Advance Directives Directive Yes / No Effective Date File Name No Information Encounters Encounter Description Practice Location Reason(s) For Visit Diagnoses Date Provider Providers Copied on Encounter [facility], [address] [place] [address], [id number], tel:[phone] [facility] No Information [facility]. [address] [place] [address], [id number], . tel:[phone] Referring Provider: Kadeem Saldivar [address], [place], [address]. tel:[phone] Family History Family Member Type Diagnosis Age At Onset No Information Payers Payer name Insurance type Covered constitution party ID Authorpatriziaa monica(s) [facility] [id number] Social History Type Description Quantity Date Captured Comments Sex Female Smoking Status No Information Chief Complaint And Reason For Visit No Information Reason For Referral Reason For Referral No Information History Of Present Illness Encounter Date Complaint History Of Prese nt Illness No Information Functional Status Date Functional Assessmen t No Information Instructions Date Instruction Additional Infor mation No Information Assessments Type Assessment Date No Information Patient Care Teams Name Effective Dates (start - stop) Status Members No Information
--- OUTSIDE RECORDS SUMMARY | 2023-06-26 09:40 | XMS_ITS | Continuity of Care Document ---
Author Name Unknown Organization [facility] Address [address] [place] [address] Phone Care Team Providers Care Brim Stitcher Name Role Phone Bhavana HILTON, Mayela Unavailable Unavailable Allergies, Adverse Reactions, Alerts Substance Reaction Status Criticality No Known Allergies Active No Inform ation Medications Medication Instructions Dosage Effective Dates (start - stop) Status Comments Celebrex 200 mg capsule take 1 capsule by oral route every day 200 MG - Active Cosentyx Pen 150 mg/mL subcutaneous inject 1 milliliter by subcutaneous route every 4 weeks 1 milliliter - Active PA APPROVED 07/15/2019 THROUGH 08/13/2021 Cymbalta 60 mg capsule,delayed release take 1 capsule by oral route every day 60 MG - Active atenolol 50 mg tablet take 1 tablet by oral route every day 50 MG - Active colestipol 1 gram tablet take 2 tablet by oral route 2 times every day swallowing whole with any liquid. Do not crush, chew and/or divide. 2 G - Active Procedures Procedure Date Office/Outpatient Visit, Est Routine Venipuncture Specimen Handling Assay Of Serum Albumin Assay Of Ck (Cpk) Assay Of Creatinine Assay Alkaline Phosphatase Transferase (Ast) (Sgot) Assay Of Blood/Uric Acid CReactive Protein Vitamin D 25 Hydroxy Complete Cbc WAuto Diff Wbc Office/Outpatient Visit, Est Routine Venipuncture Assay Of Creatinine Assay Alkaline Phosphatase Transferase (Ast) (Sgot) Alanine Amino (Alt) (Sgpt) Assay Of Urea Nitrogen Assay Of Blood/Uric Acid CReactive Protein Complete Cbc WAuto Diff Wbc Office/Outpatient Visit, Est Office/Outpatient Visit, Est Routine Venipuncture Assay Of Serum Albumin Assay Of Creatinine Transferase (Ast) (Sgot) Alanine Amino (Alt) (Sgpt) Complete Cbc WAuto Diff Wbc Office/Outpatient Visit, Est Routine Venipuncture Assay Of Serum Albumin Assay Of Creatinine Transferase (Ast) (Sgot) Alanine Amino (Alt) (Sgpt) CReactive Protein Complete Cbc WAuto Diff Wbc Office/Outpatient Visit, Est Routine Venipuncture Assay Of Serum Albumin Assay Of Creatinine Transferase (Ast) (Sgot) Alanine Amino (Alt) (Sgpt) CReactive Protein Complete Cbc WAuto Diff Wbc Encounter Created In Error Office/Outpatient Visit, Est Routine Venipuncture Assay Of Serum Albumin Assay Of Creatinine Transferase (Ast) (Sgot) Alanine Amino (Alt) (Sgpt) CReactive Protein Complete Cbc WAuto Diff Wbc Routine Venipuncture Specimen Handling Tb Test, Cell Immun Measure Office/Outpatient Visit, Est Office/Outpatient Visit, Est Drain/Inject, Joint/Bursa, Major 2018 Betamethasone Acet And Sod Phosp 2018 Office/Outpatient Visit, Est Surgical Trays Routine Venipuncture Specimen Handling Rbc Sed Rate, Nonautomated Assay Of Serum Albumin Assay Of Ck (Cpk) Assay Of Creatinine Assay Alkaline Phosphatase Transferase (Ast) (Sgot) Assay Of Blood/Uric Acid CReactive Protein Lyme Disease Antibody Complete Cbc WAuto Diff Wbc Office/Outpatient Visit, Est Routine Venipuncture Assay Of Serum Albumin Assay Of Creatinine Transferase (Ast) (Sgot) Alanine Amino (Alt) (Sgpt) CReactive Protein Complete Cbc WAuto Diff Wbc Office/Outpatient Visit, Est Routine Venipuncture Rbc Sed Rate, Nonautomated Assay Of Serum Albumin Assay Of Creatinine Transferase (Ast) (Sgot) Alanine Amino (Alt) (Sgpt) CReactive Protein Antinuclear Antibodies Complete Cbc WAuto Diff Wbc Office/Outpatient Visit, Est Routine Venipuncture Assay Of Serum Albumin Assay Of Creatinine Transferase (Ast) (Sgot) Alanine Amino (Alt) (Sgpt) Complete Cbc WAuto Diff Wbc Office/Outpatient Visit, Est Routine Venipuncture Complete Cbc WAuto Diff Wbc CReactive Protein Assay Of Serum Albumin Assay Of Creatinine Transferase (Ast) (Sgot) Alanine Amino (Alt) (Sgpt) Office/Outpatient Visit, Est Routine Venipuncture Complete Cbc WAuto Diff Wbc Assay Of Serum Albumin Assay Of Creatinine Transferase (Ast) (Sgot) Alanine Amino (Alt) (Sgpt) Office/Outpatient Visit, Est Routine Venipuncture Complete Cbc WAuto Diff Wbc CReactive Protein Assay Of Serum Albumin Assay Of Creatinine Transferase (Ast) (Sgot) Alanine Amino (Alt) (Sgpt) Office/Outpatient Visit, Est Routine Venipuncture Complete Cbc WAuto Diff Wbc CReactive Protein Assay Of Serum Albumin Assay Of Creatinine Transferase (Ast) (Sgot) Alanine Amino (Alt) (Sgpt) Office/Outpatient Visit, Est Routine Venipuncture Complete Cbc WAuto Diff Wbc CReactive Protein Assay Of Serum Albumin Assay Of Creatinine Transferase (Ast) (Sgot) Alanine Amino (Alt) (Sgpt) Office/Outpatient Visit, Est Routine Venipuncture Specimen Handling Complete Cbc WAuto Diff Wbc CReactive Protein Assay Of Serum Albumin Assay Of Creatinine Transferase (Ast) (Sgot) Alanine Amino (Alt) (Sgpt) Office/Outpatient Visit, Est Routine Venipuncture Specimen Handling Complete Cbc WAuto Diff Wbc CReactive Protein Assay Of Serum Albumin Assay Of Creatinine Transferase (Ast) (Sgot) Alanine Amino (Alt) (Sgpt) Office/Outpatient Visit, Est Routine Venipuncture Complete Cbc WAuto Diff Wbc Assay Of Serum Albumin Assay Of Creatinine Transferase (Ast) (Sgot) Alanine Amino (Alt) (Sgpt) Office/Outpatient Visit, Est Office/Outpatient Visit, New X-Ray Exam Of Pelvis 1 Or 2v Routine Venipuncture Specimen Handling Complete Cbc WAuto Diff Wbc Assay Of Serum Albumin Assay Of Creatinine Transferase (Ast) (Sgot) Alanine Amino (Alt) (Sgpt) Advance Directives Directive Yes / No Effective Date File Name No Information Encounters Encounter Description Practice Location Reason(s) For Visit Diagnoses Date Provider Providers Copied on Encounter [facility] , [address], [place], [address], [place] tel:[phone] [facility] , No Information Skemp Mayela. [facility] [address], [place], [address], [place]. tel:[phone] Office/Outpa tient Visit, Est [facility] , [address], [place], [address], [place] tel:[phone] [facility] , Unspecified inflammatory spondylopath y, site unspecifiedO ther termite technician (current) drug therapyRash and other nonspecific skin eruptionPers onal history of other malignant neoplasm of skinOther fatiguePain in rt kneeFibromya lgia 1 Skemp Mayela. [facility] [address], [place], [address], [place]. tel:[phone] Consulting Provider: Ivette Parra , [address], [address]. tel:[phone], [place] [address], [place], [address].Refer ring Provider: Mayela Gaines, [facility] [address], [place], [address]. tel:[phone] Office/Outpa tient Visit, Est [facility] , [address], [place], [address], [place] tel:[phone] [facility] , Unspecified inflammatory spondylopath y, site unspecifiedO ther senior living (current) drug therapyLong term (current) use of non-steroida l anti-inflamm atories (NSAID) Nov- 1 Skemp Mayela. [facility] [address], [place], [address], [place]. tel:[phone] Consulting Provider: Ivette Parra , [address], [address]. tel:[phone] ring Provider: Mayela Gaines, [facility] [address], [place], [address]. tel:[phone] Office/Outpa tient Visit, Est [facility] , [address], [place], [address], [place] tel:[phone] [facility] , Unspecified inflammatory spondylopath y, site unspecifiedO ther termite technician (current) drug therapy 0 1 Skemp Mayela. [facility] [address], [place], [address], [place]. tel:[phone] Consulting Provider: Ivette Parra [address], [address]. tel:[phone] ring Provider: Mayela Gaines, [facility] [address], [place], [address]. tel:[phone] Office/Outpa tient Visit, Est [facility] , [address], [place], [address], [place] tel:[phone] [facility] , Inflammatory Polyarthropa thy (chief complaint) Unspecified inflammatory spondylopath y, site unspecifiedO ther senior living (current) drug therapyPain in left knee Sep-2 0 Skemp Mayela. [facility] [address], [place], [address], [place]. tel:[phone] Consulting Provider: Ivette Parra [address], [address]. tel:[phone] ring Provider: Mayela Gaines, [facility] [address], [place], [address]. tel:[phone] Office/Outpa tient Visit, Est [facility] , [address], [place], [address], [place] tel:[phone] [facility] , Unspecified inflammatory spondylopath y, site unspecifiedO ther senior living (current) drug therapyOther dorsalgiaRas h and other nonspecific skin eruptionPain in left knee Cornel-2 3 0 Skemp Mayela. [facility] [address], [place], [address], [place]. tel:[phone] Consulting Provider: Ivette Parra , [address], [address]. tel:[phone] ring Provider: Mayela Gaines, [facility] [address], [place], [address]. tel:[phone] Office/Outpa tient Visit, Est [facility] , [address], [place], [address], [place] tel:[phone] [facility] , Unspecified inflammatory spondylopath y, site unspecifiedO ther senior living (current) drug therapyLong term (current) use of non-steroida l anti-inflamm atories (NSAID)Perso nal history of other malignant neoplasm of skinPain in left knee 0 Skemp Mayela. [facility] [address], [place], [address], [place]. tel:[phone] Consulting Provider: Ivette Parra [address], [address]. tel:[phone] ring Provider: Mayela Gaines, [facility] [address], [place], [address]. tel:[phone] [facility] , [address], [place], [address], [place] tel:[phone] [facility] , No Information 0 Skemp Mayela. [facility] [address], [place], [address], [place]. tel:[phone] Referring Provider: Mayela Gaines, [facility] [address], [place], [address]. tel:[phone] Office/Outpa tient Visit, Est [facility] , [address], [place], [address], [place] tel:[phone] [facility] , Spondyloarth opathy (chief complaint) Unspecified inflammatory spondylopath y, site unspecifiedO ther senior living (current) drug therapy 0 Skemp Mayela. [facility] [address], [place], [address], [place]. tel:[phone] Referring Provider: Mayela Gaines, [facility] [address], [place], [address]. tel:[phone] [facility] , [address], [place], [address], [place] tel:[phone] [facility] , No Information 9 Skemp Mayela. [facility] [address], [place], [address], [place]. tel:[phone] Referring Provider: Mayela Gaines, [facility] [address], [place], [address]. tel:[phone] Office/Outpa tient Visit, Est [facility] , [address], [place], [address], [place] tel:[phone] [facility] , Unspecified inflammatory spondylopath y, site unspecifiedP ain in left knee 9 Skemp Mayela. [facility] [address], [place], [address], [place]. tel:[phone] Consulting Provider: [facility] [address], [place], [address]. tel:[phone] ring Provider: Mayela Gaines, [facility] [address], [place], [address]. tel:[phone] Office/Outpa tient Visit, Est [facility] , [address], [place], [address], [place] tel:[phone] [facility] , Unspecified inflammatory spondylopath y, site unspecifiedP ain in left knee Skemp Mayela. [facility] [address], [place], [address], [place]. tel:[phone] Referring Provider: Mayela Gaines [facility] [address], [place], [address]. tel:[phone] Office/Outpa tient Visit, Est [facility] , [address], [place], [address], [place] tel:[phone] [facility] , Inflammatory Polyarthropa thy (chief complaint)Mo nitor Chronic High Risk Meds (chief complaint) Unspecified inflammatory spondylopath y, site unspecifiedO ther termite technician (current) drug therapyPerso nal history of other malignant neoplasm of skinPain in left knee 9 Skemp Mayela. [facility] [address], [place], [address], [place]. tel:[phone] Referring Provider: Mayela Gaines, [facility] [address], [place], [address]. tel:[phone] Office/Outpa tient Visit, Est [facility] , [address], [place], [address], [place] tel:[phone] [facility] , Inflammatory Polyarthropa thy (chief complaint)Mo nitor Chronic High Risk Meds (chief complaint)sa croiliitis (chief complaint) Unspecified inflammatory spondylopath y, site unspecifiedR alvarez and other nonspecific skin eruptionOthe r senior living (current) drug therapyPain in lt knee Skemp Mayela. [facility] [address], [place], [address], [place]. tel:[phone] Consulting Provider: Ivette Parra , [address] [place], [address]. tel:[phone] ring Provider: Mayela Gaines, [facility] [address], [place], [address]. tel:[phone] Office/Outpa tient Visit, Est [facility] , [address], [place], [address], [place] tel:[phone] [facility] , Inflammatory Polyarthropa thy (chief complaint)sa croiliitis (chief complaint) Unspecified inflammatory spondylopath y, site unspecifiedO ther senior living (current) drug therapyRash and other nonspecific skin eruption Skemp Mayela. [facility] [address], [place], [address], [place]. tel:[phone] Referring Provider: Mayela Gaines, [facility] [address], [place], [address]. tel:[phone] Office/Outpa tient Visit, Est [facility] , [address], [place], [address], [place] tel:[phone] [facility] , Inflammatory Polyarthropa thy (chief complaint)sa croiliitis (chief complaint) Unspecified inflammatory spondylopath y, site unspecifiedP ersonal history of other malignant neoplasm of skinOther termite technician (current) drug therapy Skemp Mayela. [facility] [address], [place], [address], [place]. tel:[phone] Consulting Provider: Ivette Parra , [address], [place], [address]. tel:[phone] ring Provider: Mayela Gaines, [facility] [address], [place], [address]. tel:[phone] Office/Outpa tient Visit, Est [facility] , [address], [place], [address], [place] tel:[phone] [facility] , Inflammatory Polyarthropa thy (chief complaint)Mo nitor Chronic High Risk Meds (chief complaint) Unspecified inflammatory spondylopath y, site unspecifiedO ther termite technician (current) drug therapy Skemp Mayela. [facility] [address], [place], [address], [place]. tel:[phone] Referring Provider: Mayela Gaines, [facility] [address], [place], [address]. tel:[phone] Office/Outpa tient Visit, Est [facility] , [address], [place], [address], [place] tel:[phone] [facility] , Inflammatory Polyarthropa thy (chief complaint)Mo nitor Chronic High Risk Meds (chief complaint) Unspecified inflammatory spondylopath y, site unspecifiedP ersonal history of other malignant neoplasm of skinOther senior living (current) drug therapy Apr-0 7 Skemp Mayela. [facility] [address], [place], [address], [place]. tel:[phone] Consulting Provider: Ivette Parra , [address], [address]. tel:[phone] ring Provider: Mayela Brightemp A, [facility] [address], [place], [address]. tel:[phone] Office/Outpa tient Visit, Est [facility] , [address], [place], [address], [place] tel:[phone] [facility] , Inflammatory Polyarthropa thy (chief complaint)Mo nitor Chronic High Risk Meds (chief complaint) Unspecified inflammatory spondylopath y, site unspecifiedP ersonal history of other malignant neoplasm of skinOther termite technician (current) drug therapy Oct- 7 Skemp Mayela. [facility] [address], [place], [address], [place]. tel:[phone] Consulting Provider: Ivette Parra , [address], [address]. tel:[phone] ring Provider: Mayela Skemp A, [facility] [address], [place], [address]. tel:[phone] Office/Outpa tient Visit, Est [facility] , [address], [place], [address], [place] tel:[phone] [facility] , Inflammatory Polyarthropa thy (chief complaint)Mo nitor Chronic High Risk Meds (chief complaint) Unspecified inflammatory spondylopath y, site unspecifiedO ther termite technician (current) drug therapyPlant ar fasciitisCer vicalgia 6 Skemp Mayela. [facility] [address], [place], [address], [place]. tel:[phone] Consulting Provider: Ivette Parra , [address], [address]. tel:[phone] ring Provider: Mayela Skemp A, [facility] [address], [place], [address]. tel:[phone] Office/Outpa tient Visit, Est [facility] , [address], [place], [address], [place] tel:[phone] [facility] , Inflammatory Polyarthropa thy (chief complaint)Mo nitor Chronic High Risk Meds (chief complaint) Unspecified inflammatory spondylopath y, site unspecifiedO ther senior living (current) drug therapyPerso nal history of other malignant neoplasm of skinWeakness 6 Skemp Mayela. [facility] [address], [place], [address], [place]. tel:[phone] Consulting Provider: Ivette Parra , [address], [address]. tel:[phone] ring Provider: Mayela Skemp A, [facility] [address], [place], [address]. tel:[phone] Office/Outpa tient Visit, Est [facility] , [address], [place], [address], [place] tel:[phone] [facility] , Monitor Chronic High Risk Meds (chief complaint)in flammatory arthritis (chief complaint) Unspecified inflammatory spondylopath yTherapeutic Drug MonitoringUr ticariaPerso nal hx of skin cancerRash and other nonspecific skin eruptionElev ated TSH level Apr-3 0-201 5 Skemp Mayela. [facility] [address], [place], [address], [place]. tel:[phone] Consulting Provider: Ivette Parra , [address], [address]. tel:[phone] ring Provider: Mayela Gaines, [facility] [address], [place], [address]. tel:[phone] Office/Outpa tient Visit, Est [facility] , [address], [place], [address], [place] tel:[phone] [facility] , oligo arthritis (chief complaint)Mo nitor chronic high risk medications (chief complaint)Ba ck Pain (chief complaint) Unspecified inflammatory spondylopath yTherapeutic Drug MonitoringBa ckachePain in joint involving handFatigue / Malaise Sep- 2-201 4 Skemp Mayela. [facility] [address], [place], [address], [place]. tel:[phone] Consulting Provider: Ivette Parra , [address], [address]. tel:[phone] ring Provider: Mayela Gaines, [facility] [address], [place], [address]. tel:[phone] Office/Outpa tient Visit, Est [facility] , [address], [place], [address], [place] tel:[phone] [facility] , oligoarthrit is (chief complaint)Ba ck Pain (chief complaint)Mo nitor chronic high risk medications (chief complaint) Unspecified inflammatory spondylopath yTherapeutic Drug Monitoring 4 Skemp Mayela. [facility] [address], [place], [address], [place]. tel:[phone] Consulting Provider: Ivette Parra , [address], [address]. tel:[phone] ring Provider: Mayela Gaines, [facility] [address], [place], [address]. tel:[phone] Office/Outpa tient Visit, Est [facility] , [address], [place], [address], [place] tel:[phone] [facility] , Inflammatory Polyarthropa thy (chief complaint) Unspecified inflammatory spondylopath yTherapeutic Drug Monitoring Skemp Mayela. [facility] [address], [place], [address], [place]. tel:[phone] Consulting Provider: Ivette Parra , [address], [address]. tel:[phone] ring Provider: Mayela Gaines, [facility] [address], [place], [address]. tel:[phone] Office/Outpa tient Visit, New [facility] , [address], [place], [address], [place] tel:[phone] [facility] , Joint Pain (chief complaint) Pain in joint involving lower legBackache Nov-0 4-201 4 Bhavana Pedro. [facility] , [facility] Alberto, [address], [place], [address], [place]. tel:[phone] Consulting Provider: Ivette Parra , [facility] [address], [place], [address]. tel:[phone] ring Provider: Mayela Gaines, [facility] , [facility].A[facility]to [address], [place], [address]. tel:[phone] Family History Family Member Type Diagnosis Age At Onset Father Problem (finding) hypertension Mother Problem (finding) hypertension Immunizations Vaccine Date Status Comments COVID-19 Moderna administered Note: 2nd w as November ; Source: Other Provider Payers Payer name Insurance type Covered constitution party ID Dk anderson(s) [facility] [id number] Social History Type Description Quantity Date Captured Comments Alcohol Use Details Unknown Caffeine Use Details Unknown Tobacco Use Status No Information Smoking Status No Information Sex Female Chief Complaint And Reason For Visit No Information Reason For Referral Reason For Referral No Information History Of Present Illness Encounter Date Complaint History Of Prese nt Illness Inflammatory Polyarthropathy Spondyloarthopathy Inflammatory Polyarthropathy Monitor Chronic High Risk Meds Inflammatory Polyarthropathy Monitor Chronic High Risk Meds sacroiliitis Inflammatory Polyarthropathy sacroiliitis Inflammatory Polyarthropathy sacroiliitis Inflammatory Polyarthropathy Monitor Chronic High Risk Meds Inflammatory Polyarthropathy Monitor Chronic High Risk Meds Inflammatory Polyarthropathy Monitor Chronic High Risk Meds Inflammatory Polyarthropathy Monitor Chronic High Risk Meds Inflammatory Polyarthropathy Monitor Chronic High Risk Meds Monitor Chronic High Risk Meds inflammatory arthritis Functional Status Date Functional Assessmen t No Information Instructions Date Instruction Additional Infor mation No Information Assessments Type Assessment Date No Information Patient Care Teams Name Effective Dates (start - stop) Status Members No Information
--- OUTSIDE RECORDS SUMMARY | 2023-06-26 09:40 | XMS_ITS | Continuity of Care Document ---
Author Name Unknown Organization [facility] Address [address] [place] [id number] Care Team Providers Care Senior Product Marketing Manager Name Role Phone [facility] Unavailable Unav ailable Procedures Procedure Date INTERLAMINAR CRV OR THRC INJ FORAMEN EPIDURAL L/S Advance Directives Directive Yes / No Effective Date File Name No Information Encounters Encounter Description Practice Location Reason(s) For Visit Diagnoses Date Provider Providers Copied on Encounter [facility], [address] [place] [address], [id number], [facility] No Information [facility]. [address] [place] [address], [id number], . tel:[phone] Referring Provider: Elvi De La Cruz, [address] [place] [address], [id number]. tel:[phone] [facility], [address] [place] [address], [id number], [facility] No Information [facility]. [address] [place] [address], [id number], [place]. tel:[phone] Referring Provider: Elvi De La Cruz [address] [place] [address], [id number]. tel:[phone] Family History Family Member Type Diagnosis Age At Onset No Information Payers Payer name Insurance type Covered green party ID Authorwinnie anderson(s) [facility] [id number] Social History Type Description Quantity Date Captured [...]
--- NOTE | 2023-06-26 09:45 | CRLHL7_ITS ---
For Patients: As a result of the Cures Act, medical imaging exams and procedure reports are released immediately into your electronic medical record. You may view this report before your referring provider. If you have questions, please contact your health care provider. DIAGNOSTIC BILATERAL BREAST MAMMOGRAM WITH COMPUTER-AIDED DETECTION AND TOMOSYNTHESIS RIGHT AXILLA ULTRASOUND CLINICAL HISTORY: RIGHT axilla palpable lump. COMPARISON: 07/11/2021. TECHNIQUE: Digital BILATERAL mammogram in 5 projections. Computer-aided detection and tomosynthesis were used. Real-time ultrasound imaging of RIGHT axilla with imaging documentation. BREAST COMPOSITION: There are scattered areas of fibroglandular density FINDINGS: 3D CC/MLO BILATERAL mammogram images submitted along with a 2D RIGHT XCCL mammogram. No suspicious masses or architectural distortion. No suspicious calcifications or adenopathy. Targeted RIGHT axillary ultrasound performed. Normal subcutaneous tissues without adenopathy or fluid collection. IMPRESSION: No suspicious findings. No evidence of malignancy. RECOMMENDATIONS: Clinical follow-up. Age appropriate screening mammography. BI-RADS Category 2: Benign Results and recommendations discussed with the patient. Dictated by Mauricio Correa MD @ 06/26/2023 11:29:54 AM/jsb Signed by: Mauricio Correa MD @06/26/2023 1:43:16 PM MELL/Dictated by: Mauricio Correa MD @ 06/26/2023 11:30:00 AM (Electronically Signed)
--- NOTE | 2023-06-26 10:15 | CRLHL7_ITS ---
For Patients: As a result of the Century Cures Act, medical imaging exams and procedure reports are released immediately into your electronic medical record. You may view this report before your referring provider. If you have questions, please contact your health care provider. CLINICAL HISTORY: RIGHT axilla palpable lump. COMPARISON: 07/11/2021 TECHNIQUE: Digital BILATERAL mammogram in 5 projections. Real-time ultrasound imaging of RIGHT axilla with imaging documentation. BREAST COMPOSITION: Scattered fibroglandular densities. FINDINGS: 3D cc/MLO bilateral mammogram images submitted along with a 2D right XCCL mammogram. No suspicious masses or architectural distortion. No suspicious calcifications or adenopathy. Targeted right axillary ultrasound performed. Normal subcutaneous tissues without adenopathy or fluid collection. IMPRESSION: No suspicious findings. No evidence of malignancy. RECOMMENDATIONS: Clinical follow-up. Age appropriate screening mammography. BI-RADS: 2. Benign. Results and recommendations discussed with the patient. Dictated by Mauricio Correa MD @ 06/26/2023 11:29:54 AM (Electronically Signed)
== END 2023-06-26 09:39 | disposition home or self-care (01) ==
LOC: MAMMO 09:38
PROVIDERS: PCP Family Medicine; Visit Provider Family Medicine
DX: R22.30 Localized swelling, mass and lump, unspecified upper limb (principal)
CPT/HCPCS: 76882; 77066; G0279

== ENCOUNTER 2024-03-28 12:04 | Outpatient (CLI) | payer OTHER, SELFPAY | END 2024-03-28 12:05 | disposition home or self-care (01) | LOC: FBOREF 12:04 | PROVIDERS: PCP Family Medicine; Visit Provider Family Medicine | DX: E03.9 Hypothyroidism, unspecified (principal) | CPT/HCPCS: 84443 ==

== ENCOUNTER 2025-05-15 08:11 | Outpatient (CLI) | payer OTHER, SELFPAY | END 2025-05-15 08:12 | disposition home or self-care (01) | PROVIDERS: PCP Family Medicine; Visit Provider Family Medicine | DX: E03.9 Hypothyroidism, unspecified (principal); I10 Essential (primary) hypertension | CPT/HCPCS: 80048; 84443 ==